=== PATIENT | female | born 1955 | race Caucasian/White ===

== ENCOUNTER 2019-04-09 19:18 | Observation (INO) | payer MEDICARE, OTHER, SELFPAY ==
[2019-04-09 19:25] VITALS: BP 142/61; PULSE 74; RESP 20; TEMP 37; O2SAT 94
--- NOTE | 2019-04-09 19:47 | ED.GENADUL_ITS ---
Discharge Plan Disposition Patient Disposition: [facility] INPATIENT Condition: Improving Discharge Details Chief Complaint: Orthopedic Clinical Impression: Acute renal insufficiency, Acute pain of right foot Admit Date/Time: 04/09/19 22:37 Admit Provider: Aydin Guardado Attending Provider: Aydin Guardado Primary Care Provider: Tatum Marie ED Provider: Jaycob Ledesma Discharge Data Discharge Date/Time-TO BE ENTERED AT DEPARTURE: 04/09/19 23:36 Medical Decision Making 63-year-old female who was discharged from [facility] orthopedics at the end of February following left knee revision arthroplasty and quadriceps tendon repair with semitendinosus allograft.. She is nonweightbearing on that leg and has been using a walker. Now she reports the insidious onset of 2 days of right hip and right foot pain that is worse with movement. States she has had occult fractures in the past, presumptively do to chronic steroid use. She is insulin dependent diabetic who is chronically immunosuppressed for rheumatoid arthritis. She is been unable to bear weight for the past 2 days due to ongoing right lower extremity pain that she states is primarily in the foot. No fall or injury. She has not had a fever or other illness. Due to her chronic arthritic pain she has been taking hydromorphone 8 mg 3 times a day. IV placed and screening laboratories obtained, patient given analgesia and referred for x-ray. She has moderate to severe osteopenia of the right foot, limiting evaluation for a nondisplaced fracture, no displaced fracture seen. X- ray of the hip and pelvis without evidence of fracture, mild degenerative changes present. Would note reassuring CBC, chemistries with mildly elevated BUN, creatinine, potassium (patient takes lisinopril and potassium). CRP is elevated but she is in the postoperative period. There is no evidence of joint infection in my opinion. She may have an occult fracture of the right foot from increased weightbearing due to her postoperative convalescence. I do feel she must be admitted for pain control, hydration, repeat of electrolytes, and reevaluation of her pain in the morning, PT versus orthopedic consult/evaluation. Lab Data Lab results reviewed: Yes I reviewed the patient's lab results. Laboratory Results - last 24 hr 04/09/19 04/09/19 04/09/19 19:57 19:57 19:57 WBC 9.38 RBC 4.08 Hgb 11.6 L Hct 37.1 MCV 90.9 MCH 28.4 MCHC 31.3 L RDW 14.9 H Plt Count 444 H MPV 9.6 Immature Gran % 0.3 Neutrophils % 70.3 Lymphocytes % 21.0 Monocytes % 6.2 Eosinophils % 1.6 Basophils % 0.6 Absolute Neutrophils 6.59 Absolute Lymphocytes 1.97 Absolute Monocytes 0.58 Absolute Eosinophils 0.15 Absolute Basophils 0.06 Sodium 137 Potassium 5.5 H Chloride 100 Carbon Dioxide 31.1 Anion Gap 5.9 BUN 21 H Creatinine 1.11 H Estimated GFR/1.73 m2 49.81 Glucose 228 H Uric Acid 4.9 Calcium 9.6 Total Bilirubin 1.2 H AST 186 H ALT 244 H Alkaline Phosphatase 368 H C-Reactive Protein 7.51 H Total Protein 7.2 Albumin 3.1 L HPI General Mode of arrival: EMS . Date/Time Provider Initiated Documentation: 04/09/19 19:40 . Limitations to Documentation: no limitations . Information obtained by: patient, family and EMS . History of Present Illness 63 year old F presents to the emergency department with the chief complaint of Occult onset right hip and foot pain, described as moderate, Quality is described as dull and constant, and is localized to the right and lower extremity. Patient reports no radiation. Patient started experiencing this day(s) and it has been constant. Rest improves symptom(s), Movement worsens symptoms . Patient notes no other symptoms.; denies fever/chills, rash and weakness. Patient did receive the following treatments prior to arrival, other (hydromorphone 8mg) Related Data Home Medications Medication Instructions Recorded Confirmed Lantus U-100 Insulin 42 units SUB-Q DIRECTED 01/11/14 04/09/19 albuterol sulfate 1 unit INHALATION QID PRN 01/11/14 04/09/19 amlodipine 5 mg PO BID 01/11/14 04/09/19 atorvastatin [Lipitor] 10 mg PO DAILY 01/11/14 04/09/19 betamethasone, augmented 1 applic TOPICAL DAILY PRN 01/11/14 04/09/19 [Diprolene] calcium carbonate-vitamin D3 1 tab PO BID 01/11/14 04/09/19 [Calcium 600 + D(3)] esomeprazole magnesium [Nexium] 40 mg PO DAILY 01/11/14 04/09/19 fluconazole 150 mg PO .X1 PRN 01/11/14 02/10/14 folic acid 1 mg PO DAILY 01/11/14 04/09/19 furosemide 40 mg PO DAILY PRN 01/11/14 04/09/19 leflunomide [Arava] 20 mg PO DAILY 01/11/14 04/09/19 methylprednisolone 4 mg PO DAILY 01/11/14 04/09/19 montelukast 10 mg PO DAILY 01/11/14 04/09/19 potassium chloride 10 meq PO DAILY PRN 01/11/14 04/09/19 zolpidem 10 mg PO HS 01/11/14 04/09/19 Breo Ellipta 2 ea INHALATION QHS 04/09/19 04/09/19 Humira 10 mg SUBCUT 04/09/19 Januvia 50 mg PO DAILY 04/09/19 04/09/19 Multi Vitamin 1 mg PO DAILY 04/09/19 04/09/19 albuterol sulfate 2 mg INHALATION PRN PRN 04/09/19 04/09/19 aspirin 81 mg PO DAILY 04/09/19 04/09/19 hydrochlorothiazide 25 mg PO DIRECTED 04/09/19 04/09/19 hydromorphone 8 mg PO Q6H PRN PRN 04/09/19 04/09/19 insulin lispro [Humalog KwikPen 10 unit SUBCUT 1200 04/09/19 04/09/19 Insulin] lisinopril 10 mg PO DAILY 04/09/19 04/09/19 metoprolol succinate 50 mg PO DAILY 04/09/19 04/09/19 tizanidine 2 mg PO Q8H PRN PRN 04/09/19 04/09/19 diazepam [Valium] 2 mg PO BID PRN #20 tab 04/11/19 naloxone [Narcan] 1 spray RICCI ONCE PRN #2 each 04/11/19 prednisone 20 mg PO DAILY #13 tab 04/11/19 Previous Rx's Medication Instructions Recorded diazepam [Valium] 2 mg PO BID PRN #20 tab 04/11/19 naloxone [Narcan] 1 spray RICCI ONCE PRN #2 each 04/11/19 prednisone 20 mg PO DAILY #13 tab 04/11/19 Allergies Allergy/AdvReac Type Severity Reaction Status Date / Time clarithromycin [From Biaxin] Allergy Intermediate Skin Rash Unverified 02/10/14 07:08 Penicillins Allergy Intermediate Skin Rash Unverified 02/10/14 07:08 Sulfa (Sulfonamide Allergy Intermediate Skin Rash Unverified 02/10/14 07:08 Antibiotics) capsaicin Allergy Anaphylaxsi Unverified 04/09/19 19:29 s nickel Allergy Unverified 04/10/19 15:07 General Stated Complaint: Orthopedic ARABELLA: 3 Review of Systems Review of Systems 6 systems reviewed and otherwise neg [facility] Medical History Diabetes mellitus (Chronic) Pain (Acute) Rheumatoid arthritis (Chronic) Surgical History Status post total left knee replacement (Acute) Social History Smoking/Tobacco Use Status: Never Drug use: Never Do you feel safe at home: Yes Do you feel safe in your relationship?: Yes Exam Narrative Exam Narrative: GEN: awake, alert, oriented 3. Pleasant, well groomed, interactive. HEAD: Normocephalic, atraumatic ENT: Mucous membranes moist, oropharynx unremarkable, External ear exam unremarkable EYES: PERRL, EOMI NECK: Full ROM, no HOMAR, no menigismus CHEST/RESP: Nontender, clear to auscultation bilateral, no wheeze/rhonchi/rales CARDIOVASCULAR: RRR, no murmur, rub pooja. 2+ Rad pulse bilateral ABDOMEN: Soft, nontender, no mass. +Bowel sounds. Back: Mild R paraspinous muscular spasm in lumbar region EXT: The left leg is with a locked knee brace with anterior vertical incision with mild surrounding ecchymosis. Palpable DP left. Sensation intact throughout. Right leg with pain with palpation of the right greater trochanter as well as with internal and external rotation of the hip, pain with palpation of the foot. Patient is able to hold the leg up against gravity. She has palpable dorsalis pedis pulse right. Neuro: Grossly normal neurologic exam, conversant, interactive. Psych: Speech fluent, thoughts congruent, affect normal Course Vital Signs Temperature 37 C 04/09/19 19:25 Pulse 74 04/09/19 19:25 Respiratory Rate 20 04/09/19 19:25 Blood Pressure 142/61 H 04/09/19 19:25 Pulse Oximetry 94 L 04/09/19 19:25 Temperature 37 C 04/09/19 19:25 Temperature Source Temporal Artery Scan 04/09/19 19:25 Pulse 74 04/09/19 19:25 Respiratory Rate 20 04/09/19 19:25 Blood Pressure 142/61 H 04/09/19 19:25 Blood Pressure Position Supine 04/09/19 19:25 Pulse Oximetry 94 L 04/09/19 19:25 Oxygen Delivery Method Room Air 04/09/19 19:25 Oxygen Flow Rate 0 04/09/19 19:25 Pain Level 10 04/09/19 19:31
[2019-04-09] MEDS: HYDROmorphone 2 MG/ML VIAL IVP ×2 (20:20→20:40)
[2019-04-09 20:22] LABS: Abs Immature Grans 0.03 k/cumm (0.0-0.09); Absolute Basophil Count 0.06 k/cumm (0.0-0.2); Absolute Eosinophil Count 0.15 k/cumm (0.0-0.7); Absolute Lymphocyte Count 1.97 k/cumm (1.2-3.4); Absolute Monocyte Count 0.58 k/cumm (0.11-0.7); Absolute Neutrophil Count 6.59 k/cumm (1.2-6.7); Basophils % 0.6; Eosinophils % 1.6; HCT 37.1 % (36.0-46.0); HGB 11.6 g/dL (12.0-15.5); Immature Grans % 0.3; Mean Corp. HGB Concentration 31.3 g/dL (32.0-36.0); Mean Corpuscular Hemoglobin 28.4 pg (27.0-33.0); Mean Corpuscular Volume 90.9 fL (80-95); Mean Platelet Volume 9.6 fL (8.0-11.0); Monocytes % 6.2; Neutrophils % 70.3; Platelet Count 444 x1000/uL (130-400); RBC 4.08 m/cumm (4.00-5.20); RBC Distribution Width 14.9 % (11.7-14.6); White Blood Cell Count 9.38 k/cumm (4.4-10.8)
[2019-04-09 20:26] LABS: C-Reactive Protein 7.51 mg/dL (0.0-0.3); Uric Acid 4.9 mg/dL (2.6-6.0)
[2019-04-09 20:40] LABS: ALT 244 U/L (12-78); AST 186 U/L (15-37); Albumin 3.1 g/dL (3.4-5.0); Alkaline Phosphatase 368 U/L (46-116); Anion Gap 5.9 mmol/L (3-11); BUN 21 mg/dL (7-18); Bilirubin, Total 1.2 mg/dL (0.2-1.0); CO2 31.1 mmol/L (21.0-32.0); CREATININE 1.11 mg/dL (0.55-1.02); Calcium 9.6 mg/dL (8.5-10.1); Chloride 100 mmol/L (98-107); Estimated GFR 49.81 (mL/min/1.73m2); Glucose 228 mg/dL (70-100); Potassium 5.5 mmol/L (3.5-5.1); Sodium 137 mmol/L (136-145); Total Protein 7.2 g/dL (6.4-8.2)
--- NOTE | 2019-04-09 21:01 | DI.RAD_ITS ---
SYMPTOM/DIAGNOSIS: PAIN, H/O OCCULT FRACTURES OF FOOT, RT HIP PAIN RIGHT HIP AND PELVIS: Three views were obtained. There are mild degenerative changes of both hips. There is no evidence of acute fracture or dislocation. RIGHT FOOT: Three views were obtained. There is marked demineralization of the bones of the foot. There is mild hallux valgus deformity. No gross acute fracture identified but the degree of demineralization might make it difficult to appreciate a fracture. Fixation apparatus noted in the fused tibia and talus.
--- NOTE | 2019-04-09 21:19 | DI.VRAD_ITS ---
EXAM: XR Right Foot Complete EXAM DATE/TIME: 04/09/2019 7:47 PM CLINICAL HISTORY: 63 years old, female; Pain; Foot; Right; Patient HX: HX occult fractures TECHNIQUE: Imaging protocol: XR Right foot. Views: 3 or more views. COMPARISON: No relevant prior studies available. FINDINGS: Bones/joints: There is moderate to severe diffuse osteopenia, correlate for disuse. This limits evaluation for nondisplaced fracture. Postsurgical changes of internal fixation of the distal right tibia and fibula. No displaced fracture. There is hallux valgus deformity with mild degenerative change of the right first MTP joint. There is severe degenerative spurring of the anterior tibiotalar joint space. There is posttraumatic changes of the ankle. Soft tissues: There is soft tissue bunion. There is mild diffuse prominence of the subcutaneous soft tissues, correlate clinically with physical exam for body habitus versus nonfocal edema. IMPRESSION: 1. Moderate to severe osteopenia limits evaluation for nondisplaced fracture, no displaced fracture. Correlate for disuse. 2. Hallux valgus deformity with soft tissue bunion and mild degenerative change of the right first MTP joint. Dictated and Authenticated by: Gama Solares MD. Ordering:IBRAHIMA Devries MD
--- NOTE | 2019-04-09 21:21 | DI.VRAD_ITS ---
EXAM: XR Right Hip with Pelvis when Performed EXAM DATE/TIME: 04/09/2019 7:47 PM CLINICAL HISTORY: 63 years old, female; Hip pain; Right hip TECHNIQUE: Imaging protocol: XR Right hip with pelvis when performed. Views: 2 or 3 views. COMPARISON: No relevant prior studies available. FINDINGS: Bones/joints: Mild decrease in osseous mineralization consistent osteopenia. No acute fracture or dislocation. There are mild degenerative changes of the right hip. Soft tissues: Mild to moderate stool burden within the imaged colon with multiple well-formed stool balls, correlate for constipation. Otherwise no focal abnormality. Vasculature: Note is made of mild vascular calcifications of the femoral arteries. IMPRESSION: No acute fracture or dislocation. Mild degenerative change of the right hip. Dictated and Authenticated by: Gama Solares MD. Ordering:IBRAHIMA Devries MD
[2019-04-09 21:32] LABS: Bilirubin Negative (Negative); Blood Negative (Negative); Clarity Clear (Clear); Glucose Negative (Negative); Ketones Negative (Negative); Leukocyte Esterase Negative (Negative); Nitrite Negative (Negative); Specific Gravity 1.015 (1.005-1.025)
[2019-04-09 22:00] VITALS: BP 145/63; PULSE 72; RESP 20; O2SAT 92
[2019-04-09] MEDS: Normal Saline 1,000 ML 150 ML IV (22:00)
[2019-04-09] MEDS: Ketorolac 15 MG/ML VIAL IVP (22:02)
[2019-04-09] MEDS: HYDROmorphone 2 MG/ML VIAL 1 MG IVP (22:05)
--- NOTE | 2019-04-09 22:25 | W.PM.HP.N ---
Date of service: 04/09/19 Time of Service: 22:25 Assessment and Plan (1) Lower extremity pain: Current visit: Yes Status: Acute Unclear if this is a foot lesion (?occult fracture), bursitis, sciatica or something elsee. or some combination thereof. Regardless patient is clearly unable to manage at home. Will consult PT, perhaps Orthopedics too, will give prn analgesics. Would consider empiric dose of pulse steroids but at this point I would prefer some degree of greater diagnostic clarity. History of Present Illness Chief Complaint: foot pain Narrative: 63 female with h/o chronic pain, RA. She is 2 weeks s/p revision of left knee arthroplasty, non-weight bearing on the leg, who now reports 2 days of pain on right: primarily in the foot, but vaguely also in the back or perhaps the hip. No sensory changes, no weakness. In consequence now unable to ambulate. In ER films of hip, pelvis and foot negative. Admitted for further management. In ER received Toradol and then IV dilaudid for pain control. Review of Systems Review of Systems All systems reviewed & are unremarkable except as noted in HPI and below PFSH Social History Smoking/Tobacco Use Status: Never Drug use: Never Do you feel safe at home: Yes Do you feel safe in your relationship?: Yes Meds Home Medications Medication Instructions Recorded Confirmed Type albuterol sulfate 1 unit INHALATION QID PRN 01/11/14 04/09/19 History amlodipine 5 mg PO BID 01/11/14 04/09/19 History atorvastatin [Lipitor] 10 mg PO DAILY 01/11/14 04/09/19 History betamethasone, augmented 1 applic TOPICAL DAILY PRN 01/11/14 04/09/19 History [Diprolene 0.05% Ointment] calcium carbonate-vitamin D3 1 tab PO BID 01/11/14 04/09/19 History [Calcium 600 + Vit D 400 Caplet] esomeprazole magnesium [Nexium] 40 mg PO DAILY 01/11/14 04/09/19 History fluconazole 150 mg PO .X1 PRN 01/11/14 02/10/14 History folic acid 1 mg PO DAILY 01/11/14 04/09/19 History furosemide 40 mg PO DAILY PRN 01/11/14 04/09/19 History insulin glargine [Lantus] 42 units SUB-Q DIRECTED 01/11/14 04/09/19 History leflunomide [Arava] 20 mg PO DAILY 01/11/14 04/09/19 History methylprednisolone 4 mg PO DAILY 01/11/14 04/09/19 History montelukast 10 mg PO DAILY 01/11/14 04/09/19 History potassium chloride 10 meq PO DAILY PRN 01/11/14 04/09/19 History zolpidem 10 mg PO HS 01/11/14 04/09/19 History adalimumab [Humira] 10 mg SUBCUT 04/09/19 History aspirin 81 mg PO DAILY 04/09/19 04/09/19 History fluticasone furoate-vilanterol 2 ea INHALATION QHS 04/09/19 04/09/19 History [Breo Ellipta] hydrochlorothiazide 25 mg PO DIRECTED 04/09/19 04/09/19 History hydromorphone 8 mg PO Q6H PRN PRN 04/09/19 04/09/19 History insulin lispro [Humalog KwikPen 10 unit SUBCUT 1200 04/09/19 04/09/19 History Insulin] lisinopril 10 mg PO DAILY 04/09/19 04/09/19 History metoprolol succinate 50 mg PO DAILY 04/09/19 04/09/19 History nqjwozkm-fkm-brlcwar fumarate 1 mg PO DAILY 04/09/19 04/09/19 History [Multi Vitamin] sitagliptin [Januvia] 50 mg PO DAILY 04/09/19 04/09/19 History tizanidine 2 mg PO Q8H PRN PRN 04/09/19 04/09/19 History Allergies Allergy/AdvReac Type Severity Reaction Status Date / Time clarithromycin [From Biaxin] Allergy Intermediate Skin Rash Unverified 02/10/14 07:08 Penicillins Allergy Intermediate Skin Rash Unverified 02/10/14 07:08 Sulfa (Sulfonamide Allergy Intermediate Skin Rash Unverified 02/10/14 07:08 Antibiotics) capsaicin Allergy Anaphylaxsi Unverified 04/09/19 19:29 s Exam Narrative Exam Narrative: 145/63, 72, 20, 37.0. HEENT atraumatic; neck supple; lungs clear; heart RRR 2/6 sys murmur; abdomen soft NT; back no spinal tenderness; mild-mod tenderness overlying right troachanteric bursa, no foot tenderness, straight leg raising produces hip pain at 70 degrees Results Labs : 04/09/19 19:57 04/09/19 19:57 Laboratory Results - last 24 hr 04/09/19 04/09/19 04/09/19 19:57 19:57 19:57 WBC 9.38 RBC 4.08 Hgb 11.6 L Hct 37.1 MCV 90.9 MCH 28.4 MCHC 31.3 L RDW 14.9 H Plt Count 444 H MPV 9.6 Immature Gran % 0.3 Neutrophils % 70.3 Lymphocytes % 21.0 Monocytes % 6.2 Eosinophils % 1.6 Basophils % 0.6 Absolute Neutrophils 6.59 Absolute Lymphocytes 1.97 Absolute Monocytes 0.58 Absolute Eosinophils 0.15 Absolute Basophils 0.06 Sodium 137 Potassium 5.5 H Chloride 100 Carbon Dioxide 31.1 Anion Gap 5.9 BUN 21 H Creatinine 1.11 H Estimated GFR/1.73 m2 49.81 Glucose 228 H Uric Acid 4.9 Calcium 9.6 Total Bilirubin 1.2 H AST 186 H ALT 244 H Alkaline Phosphatase 368 H C-Reactive Protein 7.51 H Total Protein 7.2 Albumin 3.1 L Urine Color Urine Clarity Urine pH Ur Specific [place] Urine Protein Urine Ketones Urine Blood Urine Nitrite Urine Bilirubin Urine Urobilinogen Ur Leukocyte Esterase Urine Glucose 04/09/19 21:15 WBC RBC Hgb Hct MCV MCH MCHC RDW Plt Count MPV Immature Gran % Neutrophils % Lymphocytes % Monocytes % Eosinophils % Basophils % Absolute Neutrophils Absolute Lymphocytes Absolute Monocytes Absolute Eosinophils Absolute Basophils Sodium Potassium Chloride Carbon Dioxide Anion Gap BUN Creatinine Estimated GFR/1.73 m2 Glucose Uric Acid Calcium Total Bilirubin AST ALT Alkaline Phosphatase C-Reactive Protein Total Protein Albumin Urine Color Yellow Urine Clarity Clear Urine pH 6.0 Ur Specific [place] 1.015 Urine Protein Negative Urine Ketones Negative Urine Blood Negative Urine Nitrite Negative Urine Bilirubin Negative Urine Urobilinogen 1.0 H Ur Leukocyte Esterase Negative Urine Glucose Negative Last Vital Signs Temp 37 C 04/09/19 19:25 Pulse 72 04/09/19 22:00 Resp 20 04/09/19 22:00 BP 145/63 H 04/09/19 22:00 Pulse Ox 92 L 04/09/19 22:00
[2019-04-09 23:54] VITALS: BP 155/71; PULSE 76; RESP 20; TEMP 36.7; O2SAT 96
[2019-04-09 23:58] VITALS: BP 145/63; PULSE 72; RESP 20; TEMP 36.7; O2SAT 92
[2019-04-10] MEDS: HYDROmorphone 4 MG TAB 8 MG PO ×5 (00:37→19:31)
[2019-04-10] MEDS: Normal Saline 1,000 ML 150 ML IV ×3 (04:22→22:44)
[2019-04-10 04:53] VITALS: BP 145/79; PULSE 76; RESP 20; TEMP 36.4; O2SAT 94
[2019-04-10 07:22] VITALS: BP 157/74; PULSE 73; RESP 19; TEMP 36.1; O2SAT 96
[2019-04-10] MEDS: Insulin Aspart 300 UNITS/3 ML PEN SC ×3 (08:20→17:06)
[2019-04-10] MEDS: Insulin Glargine 300 UNITS/3 ML PEN 42 UNITS SC (08:20)
[2019-04-10] MEDS: Multivitamin w/Minerals TAB 1 TAB PO (08:21)
[2019-04-10] MEDS: methylPREDNISolone 4 MG TAB PO (08:21)
[2019-04-10] MEDS: Esomeprazole 40 MG CAPCR PO (08:21)
[2019-04-10] MEDS: Lisinopril 10 MG TAB PO (08:22)
[2019-04-10] MEDS: amLODIPine 5 MG TAB PO ×2 (08:22→19:32)
[2019-04-10] MEDS: Calcium 600mg/Vit D 200U TAB 1 TAB PO ×2 (08:22→19:32)
[2019-04-10] MEDS: Aspirin 81 MG CHEW PO (08:22)
[2019-04-10] MEDS: Metoprolol CR 50 MG TABCR PO (08:22)
[2019-04-10] MEDS: Folic Acid 1 MG TAB PO (08:22)
[2019-04-10] MEDS: Montelukast 10 MG TAB PO (08:22)
[2019-04-10] MEDS: Atorvastatin 10 MG TAB PO (08:22)
[2019-04-10 08:31] LABS: BUN 18 mg/dL (7-18); CREATININE 0.89 mg/dL (0.55-1.02); Calcium 8.7 mg/dL (8.5-10.1); Chloride 103 mmol/L (98-107); Glucose 138 mg/dL (70-100); Potassium 4.2 mmol/L (3.5-5.1); Sodium 140 mmol/L (136-145)
--- NOTE | 2019-04-10 09:52 | IN_ITS ---
Date of service: 04/10/19 Time of Service: 09:00 PT Notes Inpatient Physical Therapy Evaluation Date: 04/10/19 Referring Doctor: Dr. Guardado PT Orders: PT CONSULT: unable to ambulate Precautions: NWB LLE, no quad activation LLE, ? WBing status right foot Patient Profile/Admitting Diagnosis: Patient admitted via ER due to acute onset, severe foot pain. Patient first noticed her pain in bed two nights ago. She states that she had severe pain throughout her foot, and was unable to transfer the next day. She has been NWB on the LLE for the past 2 weeks, after a TKA revision and quad tendon repair. She's in a locking brace at 0 degrees at all times. Since onset of foot pain, she's also developed centralized LBP. PMHX: RA with chronic steroid use and h/o multiple foot fractures. She's s/p ORIF of the right ankle. She is a type II diabetic. Social History/Home Situation: Patient lives independently with her . She has been transferring bed<->wheelchair independently withWW, hinged locking brace and use of leg helper for the past two weeks. She admits that her mobility was significantly impaired leading up to surgery, and her walking has been very limited. Her is supportive. Current Functional Limitations: Unable to transfer Equipment Owned/DME: W/C; 4WW; leg helper; hinged, locking brace; commode Subjective: Michelle states that she's in a lot of pain this morning. Her back is bothering her quite a lot, but her foot seems to be feeling better. She's not been out of bed since getting stranded on the commode yesterday afternoon. Objective: General Observation: Resting in bed with hinged, locking brace appropriately applied to LLE. She has resolving bruising noted throughout the left knee. Small area of non-pitting edema over the 2-3rd rays of the right foot. She's exquisitely tender to palpation over the 3rd ray. Mental Status: A&Ox3 Pain: Pain with palpation only. No foot pain at rest. ROM: Right Upper Extremity: WFL Left Upper Extremity: WFL Right Lower Extremity: Hip flexion allows 100 degrees passively. Knee motion allows 0-100 degrees. Ankle PF allows 40 degrees, DF to 5 degrees. Inversion/eversion allows approx 30 degree arc of motion. She demonstrates SLR to 40 degrees, with exacerbation of back pain although no symptoms of foot pain. No alleviation with traction. Left Lower Extremity: not assessed due to post-operative status Strength: Right Upper Extremity: WFL Left Upper Extremity: WFL Right Lower Extremity: Quads 3+/5. Ankle DF 4/5. EHL 3+/5. Left Lower Extremity: Not assessed proximally. Ankle DF is 4/5. EHL is 4-/5. Sensation: intact distally Bed Mobility/Transfers: supine->sit: min A to LLE with HOB at 45 degrees sit->supine: max A to bilat LEs with HOB flat scoot in bed: max A x 2 rolling: mod A x 2 Deferred on WBing activities due to potential for fracture. Gait: unable Balance: Static Sitting: good Dynamic Sitting: good Static Standing: unable Dynamic Standing: unable Special Tests: Mobility Limitations Standardized Measure [facility] AM-PAC 6 clicks Basic Mobility Inpatient Short Form: Raw Score: 9 CMS Score: 81% deficit Informed Consent/Education: Patient instructed in purpose of PT consult and plan of care. She was instructed in bed exercises for the RLE as noted on flowsheet. Assessment: Patient is a 63 year old female referred to physical therapy services with the diagnosis of right foot pain. Patient presents with clinical signs and symptoms consistent with diagnosis, in the presence of recent L knee surgery, requiring her to be NWB on the LLE for several weeks. She is additionally osteoporotic due to chronic steroid treatment for RA, and has a h/o of multiple atraumatic foot fractures. Her presentation and history are certainly concerning for fracture, and I've deferred on any WBing activity until further work up is obtained. Patient does already own walking boots, and her was able to bring one in for use once her WB status is obtained. At end of session, patient was heading down for CT scan; will await results and further recommendation regarding transfer. She currently demonstrates the following impairment level findings: 1. Decreased bilat LE strength 2. Decreased ROM right foot and ankle 3. Edema of the right foot 4. poorly controlled pain Impairments are contributing to the following functional limitations: 1. Unable to independently transfer 2. Unable to independently perform bed mobility 3. Unable to ambulate Patient is assessed as a High 15286 complexity based on the following: History: 63 year old female presenting with right foot pain with possibility of fracture. Patient has complicated medical history, with h/o RA and chronic st eroid use, now with osteoporosis and h/o multiple foot fractures and ORIF for stabilization. She is additionally NWB on the LLE as she recovers from TKA revision and quad tendon repair. Examination: functional limitations as noted above Presentation: unstable Decision Making: high complexity Goals: Goals X1 week 1. Supine-Sit : independent with hinged brace and leg assist 2. Sit-Supine : independent with hinged brace and leg assist 3. Sit-Stand : TBD based on CT and WB recommendations 4. Stand-Sit : TBD based on CT and WB recommendations 5. Bed-Chair : TBD based on CT and WB recommendations 6. Chair-Bed : TBD based on CT and WB recommendations Plan of Care/Treatment Plan: 1-2x/day, 7 days/week x 1 week. Plan of care has been reviewed with the TRANSPORTATION ENGINEERING TECHNICIAN providing the service under Physical Therapy direction. Initiate Physical Therapy intervention for strengthening, bed mobility, transfers, gait, stairs, balance training, use of assistive device. Will await CT results and WB recommendation prior to assessing transfers. DISCHARGE RECOMMENDATIONS: home vs SNF TREATMENT CODE/TIME: 25 minutes (74774) Jocelyn Raymond, PT, DPT [facility]
[2019-04-10] MEDS: Docusate Sodium 100 MG CAP PO ×3 (10:10→19:32)
--- NOTE | 2019-04-10 10:13 | PHARADMIT ---
Admission Pharmacy Clinical Review LOWER EXTREMITY PAIN Code Status Full Code Current Weight 98.6 kg Renally Cleared and Narrow Therapeutic Index Meds CrCl~59ml/min QTc Value / Action Taken QTC 419 (04/22/2011) BP Control, Fever BP 157/74, Afebrile, Pain 8/10 Electrolytes reviewed K+ 4.2 Mag pending DVT Prophylaxis Lovenox Opiate Usage / Scheduled Bowel Regimen Ordered Dilaudid 8mg po Q4h prn-chronic pain/opiate use Yes bowel meds started Plt/SCr for Heparin / Enoxaparin Plt 444 on admission, SCr 0.89 INR for Warfarin H/H stable, WBC/Bands H/H 11.6/37.1 WBC 9.38 on admission Antibiotic appropriateness n/a Cultures and Sensitivities n/a Surgical ABX d/c within 24 hr DM control / Insulin Dosing BG 138 (Januvia, Novolog and Lantus) Heart Failure (Check EF%) (DUC's, B-Block, Diuretics) Amlodipine, Lisinopril, Toprol IV to PO Switch Home Meds Reviewed Pt's own Arava-was brought in and given Pt's own Breo Elipta---dose and directions need clarification, med not brought in, MD aware, may substitute formulary item (?One puff daily usual dose, ?strength) Home Meds Not Ordered Furosemide, HCTZ, Potassium, Comments recent knee revision surgery on L side February 2019, non-weight bearing This pain is Right sided foot and hip--? bursitis from compensation PT eval-unable to ambulate ?Ortho consult-[facility] did recent surgery
[2019-04-10 10:39] LABS: Magnesium 1.5 mg/dL (1.8-2.4)
--- NOTE | 2019-04-10 10:50 | DI.CT_ITS ---
SYMPTOM/DIAGNOSIS: UNABLE TO BEAR WT, PAIN, ? FX RIGHT ANKLE CT: CT examination of the ankle was performed utilizing multi slice acquisition and multi planar reconstruction. There is a tibiotalar fusion with fixation plate and screws in place. The fusion appears intact. No gross evidence of acute fracture. There is severe diffuse bony demineralization which could obscure a nondisplaced fracture. CONCLUSION: No evidence of acute process. Tibiotalar fusion appears intact. Prior resection of distal fibula. Severe bony demineralization.
--- NOTE | 2019-04-10 11:22 | DI.VRAD_ITS ---
EXAM: CT Right Lower Extremity Without Contrast, Ankle EXAM DATE/TIME: 04/10/2019 10:10 AM CLINICAL HISTORY: 63 years old, female; Pain; Ankle; Right; Prior surgery; Surgery date: 6+ months; Surgery type: 3/ 4 years ago TECHNIQUE: Imaging protocol: CT of the Right lower extremity without contrast was performed. Exam focused on the ankle. Coronal and sagittal reformatted images were created and reviewed. Radiation optimization: All CT scans at this facility use at least one of these dose optimization techniques: automated exposure control; mA and/or kV adjustment per patient size (includes targeted exams where dose is matched to clinical indication); or iterative reconstruction. COMPARISON: CR XR ANKLE 3 VIEWS RIGHT 11/10/2013 14:09 FINDINGS: Bones/joints: Severe osteopenia. Postsurgical changes of the distal tibia, talus, and fibula. Fusion of the talus tibial joint resection of the distal fibula degenerative changes of the tarsal bones and metatarsals tarsal bones. Talocalcaneal joint effusion. Metallic artifact from surgical hardware degrades image quality. No obvious acute bony injury. Soft tissues: Diffuse soft tissue edema of the ankle and foot. IMPRESSION: Severe osteopenia. Postsurgical changes of the right ankle. Marked degenerative changes of the ankle and foot. Talocalcaneal joint effusion. Dictated and Authenticated by: Kristine Jordan MD. Ordering:NIKHIL Luong MD
[2019-04-10 11:45] LABS: Abs Immature Grans 0.02 k/cumm (0.0-0.09); Absolute Basophil Count 0.08 k/cumm (0.0-0.2); Absolute Eosinophil Count 0.33 k/cumm (0.0-0.7); Absolute Monocyte Count 0.82 k/cumm (0.11-0.7); Absolute Neutrophil Count 5.17 k/cumm (1.2-6.7); Basophils % 0.8; Eosinophils % 3.5; HCT 35.7 % (36.0-46.0); HGB 11.2 g/dL (12.0-15.5); Immature Grans % 0.2; Lymphocytes % 32.6; Mean Corp. HGB Concentration 31.4 g/dL (32.0-36.0); Mean Corpuscular Hemoglobin 28.3 pg (27.0-33.0); Mean Corpuscular Volume 90.2 fL (80-95); Mean Platelet Volume 10.3 fL (8.0-11.0); Monocytes % 8.6; Neutrophils % 54.3; Platelet Count 442 x1000/uL (130-400); RBC 3.96 m/cumm (4.00-5.20); RBC Distribution Width 14.4 % (11.7-14.6); White Blood Cell Count 9.52 k/cumm (4.4-10.8)
[2019-04-10 13:01] LABS: C-Reactive Protein 4.77 mg/dL (0.0-0.3)
--- NOTE | 2019-04-10 13:01 | PGE_ITS ---
Date of Service Date of service: 04/10/19 Time of Service: 13:01 Assessment and Plan (1) Lower extremity pain: Start date: 04/10/19 Start time: 13:21 Current visit: Yes Status: Acute Status post left knee revision arthroplasty and quadriceps tendon repair with semitendinosus allograft at [facility] couple weeks ago. Presents to ED last night with worsening Right hip and foot pain. She is non weight bearing on her left leg for 3-4 weeks up to 6 months. Xrays obtained in the ED r/o fracture on right hip and foot. This am however patient was unable to bear weight on RLE with PT and concern for fx. CT obtained revealed degenerative changes of ankle and foot and talocalcaneal joint effusion. Ortho consulted and at this time they feel it could be a flare up of her RA. Asked for CRP, ESR and uric acid. Uric acid normal, unlikely gout given proximity of pain and no warmth or redness. ESR pending and CRP down from 7.55 yesterday to 4.55. Questionable RA flare up by ortho. Consider waiting for ESR. Added aqua K laverne to back for pain and valium TID 2 mg for back pain and spasms. Zanaflex prn will keep for now until we find how valium works for her. (2) Status post total left knee replacement: Start date: 04/10/19 Start time: 13:38 Current visit: Yes Status: Acute see above (3) Rheumatoid arthritis: Start date: 04/10/19 Start time: 13:31 Current visit: Yes Status: Chronic On prednisone and Arava continue home dosing (4) Pain: Start date: 04/10/19 Start time: 13:34 Current visit: Yes Status: Acute Currently on Medrol 4 mg and Arava for RA, and psorriatic arthritis and OA (5) Diabetes mellitus: Start date: 04/10/19 Start time: 13:40 Current visit: Yes Status: Chronic Carb counting diet with SSI moderate, continue lantus (6) DVT prophylaxis: Start date: 04/10/19 Start time: 13:45 Current visit: Yes Status: Acute enoxaparin Subjective Patient reports: still having pain Interval history since last seen: Some question of fracture to right foot after not being able to bear weight with PT and point tenderness. CT obtained revealing no fracture, however patient does have osteopenia and RA on immunosuppressive therapy with history for multiple fractures not seen by imaging. Dr. Harkins consulted recommended ordering ESR, CRP and uric acid. Does not appear gout and the pain is between 2 and 3 rays of right foot. She recently had left knee surgery by [facility] but non weight bearing to left extremity. Pain has been increasing to RL foot and back. She did c/o worsening back pain today. Aqua laverne was ordered with valium 2 mg TID scheduled for relief. She was started on a bowel regimen with 2 large BM today. She denies n/v/, CP, SOB. Exam Const General: cooperative, healthy appearing, comfortable and no acute distress [facility] Head: normal to inspection Chest Chest: normal inspection of the chest and normal palpation of entire chest wall Resp Effort & Inspection: normal respiratory effort and able to speak in complete sentences Auscultation: clear to auscultation bilaterally Cardio Jugular venous pressure: no JVD Palpation: normal PMI Rate: regular rate Rhythm: regular rhythm Heart Sounds: S1 normal and S2 normal GI Inspection: normal to inspection Palpation: soft Percussion: normal to percussion Auscultation: normal bowel sounds Skin General skin exam: no rashes or lesions noted Other: incision to left knee with ecchymoses Neuro General: alert, awake and oriented x3 Extrem General: normal to inspection Right upper extremity: full ROM Left upper extremity: full ROM Right lower extremity: foot Details: tenderness and edema; ROM limited Left lower extremity: knee (recent replacement); abnormal ROM Other: back pain Objective Objective Clinical Data: Abnormal lab results 04/09/19 04/09/19 04/09/19 Range/Units 19:57 19:57 19:57 RBC (4.00-5.20) m/cumm Hgb 11.6 L (12.0-15.5) g/dL Hct (36.0-46.0) % MCHC 31.3 L (32.0-36.0) g/dL RDW 14.9 H (11.7-14.6) % Plt Count 444 H (130-400) x1000/uL Absolute Monocytes (0.11-0.7) k/cumm Potassium 5.5 H (3.5-5.1) mmol/L BUN 21 H (7-18) mg/dL Creatinine 1.11 H (0.55-1.02) mg/dL Glucose 228 H (70-100) mg/dL Magnesium (1.8-2.4) mg/dL Total Bilirubin 1.2 H (0.2-1.0) mg/dL AST 186 H (15-37) U/L ALT 244 H (12-78) U/L Alkaline Phosphatase 368 H (46-116) U/L C-Reactive Protein 7.51 H (0.0-0.3) mg/dL Albumin 3.1 L (3.4-5.0) g/dL Urine Urobilinogen (Up TO 0.2) EU/dL 04/09/19 04/10/19 04/10/19 Range/Units 21:15 08:12 08:12 RBC 3.96 L (4.00-5.20) m/cumm Hgb 11.2 L (12.0-15.5) g/dL Hct 35.7 L (36.0-46.0) % MCHC 31.4 L (32.0-36.0) g/dL RDW (11.7-14.6) % Plt Count 442 H (130-400) x1000/uL Absolute Monocytes 0.82 H (0.11-0.7) k/cumm Potassium (3.5-5.1) mmol/L BUN (7-18) mg/dL Creatinine (0.55-1.02) mg/dL Glucose 138 H D (70-100) mg/dL Magnesium 1.5 L (1.8-2.4) mg/dL Total Bilirubin (0.2-1.0) mg/dL AST (15-37) U/L ALT (12-78) U/L Alkaline Phosphatase (46-116) U/L C-Reactive Protein (0.0-0.3) mg/dL Albumin (3.4-5.0) g/dL Urine Urobilinogen 1.0 H (Up TO 0.2) EU/dL Vital Signs Temperature 36.1 C L 04/10/19 07:22 Temperature Source Tympanic 04/10/19 07:22 Pulse 73 04/10/19 07:22 Pulse Rhythm Regular 04/09/19 23:54 Respiratory Rate 19 04/10/19 07:22 Respiratory Effort Non-Labored 04/09/19 23:54 Respiratory Depth Normal 04/09/19 23:54 Respiratory Pattern Normal 04/09/19 23:54 Blood Pressure 157/74 H 04/10/19 07:22 Blood Pressure Position Supine 04/09/19 19:25 Pulse Oximetry 96 04/10/19 07:22 Oxygen Delivery Method Room Air 04/10/19 07:22 Oxygen Flow Rate 0 04/10/19 07:22 Pain Level 8 04/10/19 12:50 Intake & Output 04/09/19 04/10/19 04/10/19 23:59 11:59 23:59 Intake Total 1954 Output Total 650 / 650 475 / 475 Balance -650 / -650 1480 / 1480 Weight 98.6 kg Intake: IV 1954 Output: Urine 650 / 650 475 / 475 Other: Urine Color Yellow Light [place] Urine Appearance Clear Sediment Stool Size Moderate Stool Characteristics Formed Hard Laboratory Results WBC 9.52 k/cumm (4.4-10.8) 04/10/19 08:12 RBC 3.96 m/cumm (4.00-5.20) L 04/10/19 08:12 Hgb 11.2 g/dL (12.0-15.5) L 04/10/19 08:12 Hct 35.7 % (36.0-46.0) L 04/10/19 08:12 MCV 90.2 fL (80-95) 04/10/19 08:12 MCH 28.3 pg (27.0-33.0) 04/10/19 08:12 MCHC 31.4 g/dL (32.0-36.0) L 04/10/19 08:12 RDW 14.4 % (11.7-14.6) 04/10/19 08:12 Plt Count 442 x1000/uL (130-400) H 04/10/19 08:12 MPV 10.3 fL (8.0-11.0) 04/10/19 08:12 Immature Gran % 0.2 04/10/19 08:12 54.3 04/10/19 08:12 32.6 04/10/19 08:12 8.6 04/10/19 08:12 3.5 04/10/19 08:12 0.8 04/10/19 08:12 Absolute Neutrophils 5.17 k/cumm (1.2-6.7) 04/10/19 08:12 Absolute Lymphocytes 3.10 k/cumm (1.2-3.4) 04/10/19 08:12 Absolute Monocytes 0.82 k/cumm (0.11-0.7) H 04/10/19 08:12 Absolute Eosinophils 0.33 k/cumm (0.0-0.7) 04/10/19 08:12 Absolute Basophils 0.08 k/cumm (0.0-0.2) 04/10/19 08:12 Sodium Cancelled 04/10/19 10:07 Potassium Cancelled 04/10/19 10:07 Chloride Cancelled 04/10/19 10:07 Carbon Dioxide Cancelled 04/10/19 10:07 Cancelled 04/10/19 10:07 BUN Cancelled 04/10/19 10:07 Cancelled 04/10/19 10:07 Cancelled 04/10/19 10:07 Glucose Cancelled 04/10/19 10:07 4.9 mg/dL (2.6-6.0) 04/09/19 19:57 Calcium Cancelled 04/10/19 10:07 Magnesium Cancelled 04/10/19 10:07 1.2 mg/dL (0.2-1.0) H 04/09/19 19:57 AST 186 U/L (15-37) H 04/09/19 19:57 ALT 244 U/L (12-78) H 04/09/19 19:57 368 U/L (46-116) H 04/09/19 19:57 7.51 mg/dL (0.0-0.3) H 04/09/19 19:57 7.2 g/dL (6.4-8.2) 04/09/19 19:57 3.1 g/dL (3.4-5.0) L 04/09/19 19:57 Yellow (Yellow) 04/09/19 21:15 Clear (Clear) 04/09/19 21:15 6.0 (5-8) 04/09/19 21:15 Ur Specific [place] 1.015 (1.005-1.025) 04/09/19 21:15 Negative mg/dL (Negative) 08/16/19 21:15 Negative mg/dL (Negative) 04/09/19 21:15 Negative (Negative) 04/09/19 21:15 Negative (Negative) 04/09/19 21:15 Negative (Negative) 04/09/19 21:15 1.0 EU/dL (Up TO 0.2) H 04/09/19 21:15 Ur Leukocyte Esterase Negative (Negative) 04/09/19 21:15 Negative mg/dL (Negative) 04/09/19 21:15
[2019-04-10 13:42] VITALS: BP 129/67; PULSE 74; RESP 18; TEMP 37; O2SAT 96
[2019-04-10 13:46] LABS: ESR 46 mm/hr (0-30)
[2019-04-10] MEDS: diazePAM 2 MG TAB PO (14:17)
--- NOTE | 2019-04-10 14:22 | PDOC.CMIN ---
Care Management Initial Assess REASON FOR HOSPITALIZATION:: Lower Extremity Pain PAST MEDICAL HISTORY/PAST SURGICAL HISTORY:: Medical: Diabetes; Rheumatoid Arthritis; DVT prophylaxis. Surgical: Total Left Knee Replacement PREVIOUS FUNCTIONAL STATUS/SOCIAL/FAMILY SUPPORTS:: Michelle lives with her ,Albino, at their home in [place]. She has not been able to ambulate or bear any weight on the left leg following her recent total knee replacement surgery. Uses a wheel chair but it cannot fit in the bathroom or bedroom. She borrowed the chair from a friend but would like to have her own chair ordered. They have two adult children who live out of the area. Neighbors and friends keep in touch and would help if needed. CURRENT FUNCTIONAL STATUS:: Lying in bed and states she is still in a great deal of pain. PT did evaluiate her this morning. Requires assistance for mobilization. ADVANCE DIRECTIVES:: None on file Has patient been provided with information about the portal?: No Did the patient sign up for the portal?: No CODE STATUS:: Full Code CURRENT HOME/COMMUNITY SERVICES/EQUIPMENT:: Owns an electric scooter and has a borrowed wheel chair PRIMARY CARE PHYSICIAN:: Tatum Jhaveri POTENTIAL DISCHARGE NEEDS:: Possibly home care skilled services PATIENT/FAMILY EDUCATION NEEDS:: Self management and discharge instructions ANTICIPATED BARRIERS TO DISCHARGE:: None identified TRANSPORTATION:: will transport PLAN:: Michelle will return home and services needs will be determined prior to discharge.
--- NOTE | 2019-04-10 15:07 | NUR.NOTE ---
Addendum entered by Ely Gregory 04/10/19 15:30: Patient now states that she is loopy and forgot until her reminded her that she has been having heart palpations for years Original Note: Nursing Note: Verbal report from previous shift nurse was that the patient just recently rang her call jiang and stated that she felt as if she was having heart palpations and felt clammy. Previous nurse assessed an apical heart rate and found it to be regular per report. This RN went to assess patient and she stated that she has been having hot clammy spells followed with feeling cold since just before being admitted to the hospital. The patient also stated that she no longer feels as if she is having heart palpitations
[2019-04-10] MEDS: MAGNESIUM SULFATE 4 GM/100 ML BAG IVPB (15:17)
[2019-04-10 15:30] VITALS: BP 118/75; PULSE 72; RESP 19; TEMP 36.5; O2SAT 97
[2019-04-10] MEDS: Zolpidem 10 MG TAB PO (21:59)
[2019-04-10 23:19] VITALS: BP 107/61; PULSE 69; RESP 18; TEMP 36.6; O2SAT 96
[2019-04-11] MEDS: HYDROmorphone 4 MG TAB 8 MG PO ×2 (00:01→04:10)
[2019-04-11 03:10] VITALS: BP 154/76; PULSE 68; RESP 18; TEMP 36.6; O2SAT 98
[2019-04-11] MEDS: Normal Saline 1,000 ML 150 ML IV (05:02)
[2019-04-11 06:58] LABS: Abs Immature Grans 0.02 k/cumm (0.0-0.09); Absolute Basophil Count 0.09 k/cumm (0.0-0.2); Absolute Eosinophil Count 0.39 k/cumm (0.0-0.7); Absolute Lymphocyte Count 3.31 k/cumm (1.2-3.4); Absolute Monocyte Count 0.75 k/cumm (0.11-0.7); Absolute Neutrophil Count 3.96 k/cumm (1.2-6.7); Basophils % 1.1; Eosinophils % 4.6; HCT 36.1 % (36.0-46.0); HGB 11.4 g/dL (12.0-15.5); Immature Grans % 0.2; Lymphocytes % 38.8; Mean Corp. HGB Concentration 31.6 g/dL (32.0-36.0); Mean Corpuscular Hemoglobin 28.1 pg (27.0-33.0); Mean Corpuscular Volume 89.1 fL (80-95); Mean Platelet Volume 9.9 fL (8.0-11.0); Monocytes % 8.8; Neutrophils % 46.5; Platelet Count 428 x1000/uL (130-400); RBC 4.05 m/cumm (4.00-5.20); RBC Distribution Width 14.6 % (11.7-14.6); White Blood Cell Count 8.52 k/cumm (4.4-10.8)
[2019-04-11 07:05] LABS: Anion Gap 7.5 mmol/L (3-11); BUN 12 mg/dL (7-18); CO2 28.5 mmol/L (21.0-32.0); CREATININE 0.78 mg/dL (0.55-1.02); Calcium 7.9 mg/dL (8.5-10.1); Chloride 107 mmol/L (98-107); Glucose 131 mg/dL (70-100); Potassium 3.6 mmol/L (3.5-5.1); Sodium 143 mmol/L (136-145)
[2019-04-11] MEDS: Calcium 600mg/Vit D 200U TAB 1 TAB PO (07:48)
[2019-04-11] MEDS: diazePAM 2 MG TAB PO (07:48)
[2019-04-11] MEDS: Multivitamin w/Minerals TAB 1 TAB PO (07:48)
[2019-04-11] MEDS: methylPREDNISolone 4 MG TAB PO (07:48)
[2019-04-11] MEDS: Montelukast 10 MG TAB PO (07:48)
[2019-04-11] MEDS: Esomeprazole 40 MG CAPCR PO (07:49)
[2019-04-11] MEDS: Metoprolol CR 50 MG TABCR PO (07:49)
[2019-04-11] MEDS: Folic Acid 1 MG TAB PO (07:49)
[2019-04-11] MEDS: Atorvastatin 10 MG TAB PO (07:49)
[2019-04-11] MEDS: Docusate Sodium 100 MG CAP PO (07:49)
[2019-04-11] MEDS: Lisinopril 10 MG TAB PO (07:49)
[2019-04-11] MEDS: Aspirin 81 MG CHEW PO (07:49)
[2019-04-11] MEDS: amLODIPine 5 MG TAB PO (07:49)
[2019-04-11] MEDS: Enoxaparin 40 MG/0.4 ML SYR SC (07:50)
[2019-04-11] MEDS: Insulin Glargine 300 UNITS/3 ML PEN 42 UNITS SC (07:58)
[2019-04-11 08:39] VITALS: BP 138/64; PULSE 71; RESP 18; TEMP 36.6; O2SAT 98
--- NOTE | 2019-04-11 08:39 | W.ORTHOCONSU ---
Date of service: 04/11/19 Time of Service: 08:40 History of Present Illness Chief Complaint: Right hip and right foot pain Narrative: This patient was admitted to [facility] by Dr. Guardado on the evening of 04/09/2019. She had a history of acute pain in her right hip lower back and in her right foot. She is status post 4 knee incisions on the left side and most recently had a revision [address] Garber. She had a previous ankle fusion on the right side approximately 3 to [address] Grijalva she felt something crack in her foot while walking across the floor in April 2018 and was noted to have a fracture in the midfoot. That has apparently recovered. And she states that she normally is able to ambulate issue however with the acuteness of her injury she has had hip pain back pain and right foot pain. Laboratory studies taken in the emergency department showed an elevated sed rate of 46 a C-reactive protein of 7.5. Other studies were essentially unremarkable her glucose is in relatively poor control. She had x-rays taken of the pelvis which were unremarkable. There is no evidence of any osteoarthritis of either hip or any acute finding findings of foot and ankle x-rays show severe osteopenia with pelvic valgus deformity no acute fractures noted she does have what appears to be an ankle fusion that was performed with a medially placed plate. There is diffuse osteopenia but no acute fractures on those films a subsequent CT scan was done yesterday which confirmed the previous findings showing no acute fractures. Consults Consult date: 04/11/19 Assessment and Plan (1) Rheumatoid arthritis: Current visit: Yes Status: Chronic Right foot right hip and back pain in a patient who is had her fourth knee surgery. Patient also has morbid obesity diabetes and multiple other underlying factors. I suspect that her constellation of symptoms possibly represent a flareup of her rheumatoid arthritis from the stress of surgery. Her uric acid was within normal limits. Her sed rate and C-reactive protein are going to be elevated at this stage following recovery of the knee revision surgery. A CAT scan has ruled out any obvious fracture obviously they could be surinder recommend with the hospitalist that she undergo a steroid bolus with a taper. She is got a fracture walking brace on. She is due to follow-up with Dr. Garber at the end of this month for her knee now for to him issues regarding her current hospital e type of stress fracture but I do not see any indication to consider MRI usually in the acute injury setting a CT scan is more sensitive than an MRI for fracture. Even if she did have a stress fracture is on a milieu of severe osteopenia from disuse undoubtably related to the patient's inactivity and her previous ankle fusion [facility] Medical History (Updated 04/10/19 @ 13:20 by Cherise Almendarez NP) Diabetes mellitus (Chronic) Pain (Acute) Rheumatoid arthritis (Chronic) Surgical History (Updated 04/10/19 @ 13:20 by Cherise Almendarez NP) Status post total left knee replacement (Acute) Social History Smoking/Tobacco Use Status: Never Drug use: Never Do you feel safe at home: Yes Do you feel safe in your relationship?: Yes Exam Extrem Other: Left revision knee incision has a benign appearance there is slight warmth. There is no signs of any infection or drainage. She is in a hinged knee immobilizer splint but the wound is visible right lower extremity exam shows mild hallux valgus deformity clinically although it is fairly more prominent prominent on x-ray she has midfoot tenderness of the base of the third metatarsal I cannot elicit any crepitation ankle fusion seems solid there is minimal swelling there is no cellulitis. This morning she had acute lower back spasms and had trouble moving but that has improved after PT has worked with her. Her right hip is not Results Last Vital Signs Temp 97.9 F 04/11/19 03:10 Pulse 68 04/11/19 03:10 Resp 18 04/11/19 03:10 BP 154/76 H 04/11/19 03:10 Pulse Ox 98 04/11/19 03:10 Labs : 04/11/19 06:15 04/11/19 06:15 Laboratory Results - last 24 hr 04/10/19 04/10/19 04/10/19 08:10 08:10 08:12 WBC RBC Hgb Hct MCV MCH MCHC RDW Plt Count MPV Immature Gran % Neutrophils % Lymphocytes % Monocytes % Eosinophils % Basophils % Absolute Neutrophils Absolute Lymphocytes Absolute Monocytes Absolute Eosinophils Absolute Basophils ESR 46 H Sodium 140 Potassium 4.2 D Chloride 103 Carbon Dioxide 30.0 Anion Gap 7.0 BUN 18 Creatinine 0.89 Estimated GFR/1.73 m2 >= 60.00 Glucose 138 H D Calcium 8.7 Magnesium 1.5 L C-Reactive Protein 4.77 H 04/10/19 04/10/19 04/11/19 08:12 10:07 06:15 WBC 9.52 RBC 3.96 L Hgb 11.2 L Hct 35.7 L MCV 90.2 MCH 28.3 MCHC 31.4 L RDW 14.4 Plt Count 442 H MPV 10.3 Immature Gran % 0.2 Neutrophils % 54.3 Lymphocytes % 32.6 Monocytes % 8.6 Eosinophils % 3.5 Basophils % 0.8 Absolute Neutrophils 5.17 Absolute Lymphocytes 3.10 Absolute Monocytes 0.82 H Absolute Eosinophils 0.33 Absolute Basophils 0.08 ESR Sodium Cancelled 143 Potassium Cancelled 3.6 Chloride Cancelled 107 Carbon Dioxide Cancelled 28.5 Anion Gap Cancelled 7.5 BUN Cancelled 12 D Creatinine Cancelled 0.78 Estimated GFR/1.73 m2 Cancelled >= 60.00 Glucose Cancelled 131 H Calcium Cancelled 7.9 L Magnesium Cancelled 2.0 C-Reactive Protein 04/11/19 06:15 WBC 8.52 RBC 4.05 Hgb 11.4 L Hct 36.1 MCV 89.1 MCH 28.1 MCHC 31.6 L RDW 14.6 Plt Count 428 H MPV 9.9 Immature Gran % 0.2 Neutrophils % 46.5 Lymphocytes % 38.8 Monocytes % 8.8 Eosinophils % 4.6 Basophils % 1.1 Absolute Neutrophils 3.96 Absolute Lymphocytes 3.31 Absolute Monocytes 0.75 H Absolute Eosinophils 0.39 Absolute Basophils 0.09 ESR Sodium Potassium Chloride Carbon Dioxide Anion Gap BUN Creatinine Estimated GFR/1.73 m2 Glucose Calcium Magnesium C-Reactive Protein
[2019-04-11 09:06] LABS: ALT 114 U/L (12-78); AST 30 U/L (15-37); Albumin 2.6 g/dL (3.4-5.0); Alkaline Phosphatase 243 U/L (46-116); Bilirubin, Direct 0.21 mg/dL (0.00-0.20); Bilirubin, Total 0.6 mg/dL (0.2-1.0); C-Reactive Protein 2.07 mg/dL (0.0-0.3); Total Protein 6.2 g/dL (6.4-8.2)
[2019-04-11] MEDS: Potassium Chloride 20 MEQ TABCR 40 MEQ PO (09:09)
[2019-04-11] MEDS: predniSONE 20 MG TAB 60 MG PO (09:28)
--- NOTE | 2019-04-11 10:16 | PTTR_ITS ---
Date of service: 04/11/19 Time of Service: 10:16 PT Notes 04/11/19 SUBJECTIVE: Pt noting some pain today but this is mostly in the left knee while in bed. Some discomfort noted in the right foot upon transfers. OBJECTIVE: Agreeable to PT treatment. is present in the room. TRANSFERS Supine to sit: Min A Sit to supine: SBA Sit to stand: CGA Stand to sit: CGA GAIT: NWB L LE with immobilizer locked at 0 degrees. Boot donned on right LE for comfort. Stand pivot transfer performed x 2. CGA THEREX: Right LE only: Ankle pumps, QS, x 10 each. ASSESSMENT: Minimal assist required for stand pivot transfer today. She did require some assist out of bed and she utilized leg through freight engineer on the left to avoid any quad activation. Seems to be less painful today through the back and right foot. PLAN: Continue current POC. Treatment time: 8:00-8:20, 9:15-9:25 [id number] Claudia Alex PTA Clinic location: [facility] [place], [place]
[2019-04-11 11:00] VITALS: BP 147/78; PULSE 78; RESP 19; TEMP 36.8; O2SAT 98
--- NOTE | 2019-04-11 11:45 | W.PM.DS.N ---
Date of service: 04/11/19 Time of Service: 11:45 DS: Diagnosis Discharge Diagnosis (1) Rheumatoid arthritis: Start date: 04/11/19 Start time: 11:46 Status: Chronic Asessment and Plan: Prednisone taper, valium for back pain. Discharge Plan Disposition Patient Disposition: HOME Condition: Improving Discharge Details Chief Complaint: Orthopedic Clinical Impression: Acute renal insufficiency, Acute pain of right foot Reason For Visit: LOWER EXTREMITY PAIN Admit Date/Time: 04/09/19 22:37 Admit Provider: Aydin Guardado Attending Provider: Aydin Guardado Primary Care Provider: Tatum Marie ED Provider: Jaycob Ledesma Hospital Course Hospital Course: Mrs. Mackenzie had back pain and right lower extremity foot pain x four days worsening to the point she came to [facility] ED on 04/09. Status post left knee revision after 2 weeks at [facility] with 20% weight bearing to the extremity leaving her to use her right leg only. Imaging in the ED did not show any fractures of her hip or foot, it did however show constipation. PT consult was placed with a bowel regimen and valium for back pain, with her normal home pain regimen. PT was concerned yesterday when trying to work with her as she was unable to bear weight on her right foot. Patient has a history of RA and OA on immunospressive therapy leading to osteopenia. PT was concerned about possible fracture in the foot. CT obtained showed no fracture. Ortho consulted and they felt maybe this was an RA flare up or gout, CRP ordered, ESR and uric acid. CRP down from 7.55 at 2.07. ESR was elevated at 43, though in an RA patient this maybe normal. Uric acid was in normal range. Ortho felt starting her on medrol dosage with taper would be appropriate, she was started on 60 mg today. She also had large stool today and yesterday. This morning her back pain is relieved and she was able move with PT and she stated it felt good to get up and move around. She would like to be discharged home. She will be discharged home with PT/OT, nursing services, social work associate, medrol dose taper, valium and narcan. She should follow up with her PCP in 1 week and ortho as scheduled. Home Meds and New Rx's Prescriptions: New diazepam [Valium] 2 mg tablet 2 mg PO BID PRN (Reason: back pain) Qty: 20 RF: 0 Narcan 4 mg/actuation spray,non-aerosol 1 spray RICCI ONCE PRN (Reason: opioid overdose) Qty: 2 RF: 0 prednisone 20 mg tablet 20 mg PO DAILY Qty: 13 RF: 0 Continued furosemide 40 MG tablet 40 mg PO DAILY PRNRF: 0 potassium chloride 10 MEQ capsule, extended release 10 meq PO DAILY PRNRF: 0 Lantus U-100 Insulin 100 UNIT/ML solution 42 units Sub-Q DIRECTED RF: 0 albuterol sulfate 3 ML solution for nebulization 1 unit Inhalation QID PRNRF: 0 atorvastatin [Lipitor] 10 MG tablet 10 mg PO DAILY RF: 0 fluconazole 150 MG tablet 150 mg PO .X1 PRNRF: 0 methylprednisolone 4 MG tablet 4 mg PO DAILY RF: 0 amlodipine 5 MG tablet 5 mg PO BID RF: 0 leflunomide [Arava] 20 MG tablet 20 mg PO DAILY RF: 0 esomeprazole magnesium [Nexium] 40 MG capsule,delayed release(DR/EC) 40 mg PO DAILY RF: 0 betamethasone, augmented [Diprolene] 50 GM ointment 1 applic Topical DAILY PRNRF: 0 folic acid 1 MG tablet 1 mg PO DAILY RF: 0 montelukast 10 MG tablet 10 mg PO DAILY RF: 0 zolpidem 10 MG tablet 10 mg PO HS RF: 0 calcium carbonate-vitamin D3 [Calcium 600 + D(3)] 1 EACH tablet 1 tab PO BID RF: 0 metoprolol succinate 50 mg Tablet Extended Release 24 Hr 50 mg PO DAILY RF: 0 aspirin 81 mg Tablet,Chewable 81 mg PO DAILY RF: 0 hydrochlorothiazide 25 mg Tablet 25 mg PO DIRECTED RF: 0 Januvia 50 mg Tablet 50 mg PO DAILY RF: 0 Multi Vitamin 9 mg iron/15 mL Liquid 1 mg PO DAILY RF: 0 hydromorphone 8 mg Tablet 8 mg PO Q6H PRN PRNRF: 0 tizanidine 2 mg Tablet 2 mg PO Q8H PRN PRNRF: 0 lisinopril 10 mg Tablet 10 mg PO DAILY RF: 0 insulin lispro [Humalog KwikPen Insulin] 100 unit/mL Insulin Pen 10 unit SUBCUT 1200 RF: 0 Breo Ellipta 200-25 mcg/dose Blister With Device 2 ea INHALATION QHS RF: 0 Humira 10 mg/0.2 mL Syringe Kit 10 mg SUBCUT RF: 0 albuterol sulfate 0.63 mg/3 mL Solution For Nebulization 2 mg inhalation PRN PRNRF: 0 Discharge Instructions Instructions: Constipation (GEN), Chronic Pain (GEN), Pain Management After Surgery (GEN), Narcotic Pain Management (GEN), Revision Total Joint Arthroplasty (DC), Opioid Pain Management (GEN) Additional Instructions: Take all medications as prescribed. Physical therapy, occupational therapy and Nursing services will come to your house to work with you. Follow up with your PCP in 1 week. Follow up with ortho as scheduled. Seek medical treatment if you have Chest Pain, Shortness of breath, Nausea, vomiting, diarrhea Activity:: Activity as Tolerated Equipment/Supplies:: W/C Diet:: Carb Counting Discharge Orders Discharge Orders: Discharge Order (Routine); Ordered 04/11/19 Ordered By: Aureliano Almendarez Exam Const General: cooperative, healthy appearing, comfortable and no acute distress HENMT Head: normal to inspection Chest Chest: normal inspection of the chest and normal palpation of entire chest wall Resp Effort & Inspection: normal respiratory effort and able to speak in complete sentences Auscultation: clear to auscultation bilaterally Cardio Jugular venous pressure: no JVD Palpation: normal PMI Rate: regular rate Rhythm: regular rhythm Heart Sounds: S1 normal and S2 normal GI Inspection: normal to inspection Palpation: soft Percussion: normal to percussion Auscultation: normal bowel sounds Skin General skin exam: no rashes or lesions noted Neuro General: alert, awake and oriented x3 Extrem General: normal to inspection Right upper extremity: full ROM Left upper extremity: full ROM Right lower extremity: foot Details: tenderness and edema; ROM limited Left lower extremity: knee (recent replacement); abnormal ROM DS: Data Vitals/I&O Vitals and I&O: Vital Signs Temperature 36.6 C 04/11/19 08:39 Temperature Source Tympanic 04/11/19 08:39 Pulse 71 04/11/19 08:39 Pulse Rhythm Regular 04/11/19 00:00 Respiratory Rate 18 04/11/19 08:39 Respiratory Effort Non-Labored 04/11/19 00:00 Respiratory Depth Normal 04/11/19 00:00 Respiratory Pattern Normal 04/11/19 00:00 Blood Pressure 138/64 04/11/19 08:39 Blood Pressure Position Supine 04/09/19 19:25 Pulse Oximetry 98 04/11/19 08:39 Oxygen Delivery Method Room Air 04/11/19 08:39 Oxygen Flow Rate 0 04/11/19 08:39 Pain Level 7 04/11/19 08:39 Comment 04/11/19 03:10 Intake & Output 04/10/19 04/10/19 04/11/19 11:59 23:59 11:59 Intake Total 2055 / 3502.5 1447.5 / 3502.5 1840 / 1840 Output Total 1125 / 3775 2650 / 3775 850 / 850 Balance 930 / -272.5 -1202.5 / -272.5 990 / 990 Intake: IV 1955 / 2912.5 957.5 / 2912.5 1840 / 1840 Oral 100 / 590 490 / 590 Output: Urine 1125 / 3775 2650 / 3775 850 / 850 Other: Urine Color Yellow Yellow Pale Yellow Urine Appearance Clear Clear Clear Comment d/c'd per verbal order from aureliano Almendarez. Stool Size Moderate Stool Characteristics Formed Hard Pending studies at discharge: EXAM: XR Right Foot Complete EXAM DATE/TIME: 04/09/2019 7:47 PM CLINICAL HISTORY: 63 years old, female; Pain; Foot; Right; Patient HX: HX occult fractures TECHNIQUE: Imaging protocol: XR Right foot. Views: 3 or more views. COMPARISON: No relevant prior studies available. FINDINGS: Bones/joints: There is moderate to severe diffuse osteopenia, correlate for disuse. This limits evaluation for nondisplaced fracture. Postsurgical changes of internal fixation of the distal right tibia and fibula. No displaced fracture. There is hallux valgus deformity with mild degenerative change of the right first MTP joint. There is severe degenerative spurring of the anterior tibiotalar joint space. There is posttraumatic changes of the ankle. Soft tissues: There is soft tissue bunion. There is mild diffuse prominence of the subcutaneous soft tissues, correlate clinically with physical exam for body habitus versus nonfocal edema. IMPRESSION: 1. Moderate to severe osteopenia limits evaluation for nondisplaced fracture, no displaced fracture. Correlate for disuse. 2. Hallux valgus deformity with soft tissue bunion and mild degenerative change of the right first MTP joint. 04/09/2019 7:47 PM CLINICAL HISTORY: 63 years old, female; Hip pain; Right hip TECHNIQUE: Imaging protocol: XR Right hip with pelvis when performed. Views: 2 or 3 views. COMPARISON: No relevant prior studies available. FINDINGS: Bones/joints: Mild decrease in osseous mineralization consistent osteopenia. No acute fracture or dislocation. There are mild degenerative changes of the right hip. Soft tissues: Mild to moderate stool burden within the imaged colon with multiple well-formed stool balls, correlate for constipation. Otherwise no focal abnormality. Vasculature: Note is made of mild vascular calcifications of the femoral arteries. IMPRESSION: No acute fracture or dislocation. Mild degenerative change of the right hip. EXAM: CT Right Lower Extremity Without Contrast, Ankle EXAM DATE/TIME: 04/10/2019 10:10 AM CLINICAL HISTORY: 63 years old, female; Pain; Ankle; Right; Prior surgery; Surgery date: 6+ months; Surgery type: 3/ 4 years ago TECHNIQUE: Imaging protocol: CT of the Right lower extremity without contrast was performed. Exam focused on the ankle. Coronal and sagittal reformatted images were created and reviewed. Radiation optimization: All CT scans at this facility use at least one of these dose optimization techniques: automated exposure control; mA and/or kV adjustment per patient size (includes targeted exams where dose is matched to clinical indication); or iterative reconstruction. COMPARISON: CR XR ANKLE 3 VIEWS RIGHT 11/10/2013 14:09 FINDINGS: Bones/joints: Severe osteopenia. Postsurgical changes of the distal tibia, talus, and fibula. Fusion of the talus tibial joint resection of the distal fibula degenerative changes of the tarsal bones and metatarsals tarsal bones. Talocalcaneal joint effusion. Metallic artifact from surgical hardware degrades image quality. No obvious acute bony injury. Soft tissues: Diffuse soft tissue edema of the ankle and foot. IMPRESSION: Severe osteopenia. Postsurgical changes of the right ankle. Marked degenerative changes of the ankle and foot. Talocalcaneal joint effusion. Labs on day of discharge: Labs from last 24 hours 04/11/19 04/11/19 04/10/19 06:15 06:15 08:12 WBC 8.52 9.52 RBC 4.05 3.96 L Hgb 11.4 L 11.2 L Hct 36.1 35.7 L MCV 89.1 90.2 MCH 28.1 28.3 MCHC 31.6 L 31.4 L RDW 14.6 14.4 Plt Count 428 H 442 H MPV 9.9 10.3 Immature Gran % 0.2 0.2 Neutrophils % 46.5 54.3 Lymphocytes % 38.8 32.6 Monocytes % 8.8 8.6 Eosinophils % 4.6 3.5 Basophils % 1.1 0.8 Absolute Neutrophils 3.96 5.17 Absolute Lymphocytes 3.31 3.10 Absolute Monocytes 0.75 H 0.82 H Absolute Eosinophils 0.39 0.33 Absolute Basophils 0.09 0.08 ESR Sodium 143 Potassium 3.6 Chloride 107 Carbon Dioxide 28.5 Anion Gap 7.5 BUN 12 D Creatinine 0.78 Estimated GFR/1.73 m2 >= 60.00 Glucose 131 H Calcium 7.9 L Magnesium 2.0 Total Bilirubin 0.6 Conjugated Bilirubin 0.21 H AST 30 ALT 114 H Alkaline Phosphatase 243 H C-Reactive Protein 2.07 H Total Protein 6.2 L Albumin 2.6 L 04/10/19 04/10/19 08:10 08:10 WBC RBC Hgb Hct MCV MCH MCHC RDW Plt Count MPV Immature Gran % Neutrophils % Lymphocytes % Monocytes % Eosinophils % Basophils % Absolute Neutrophils Absolute Lymphocytes Absolute Monocytes Absolute Eosinophils Absolute Basophils ESR 46 H Sodium Potassium Chloride Carbon Dioxide Anion Gap BUN Creatinine Estimated GFR/1.73 m2 Glucose Calcium Magnesium Total Bilirubin Conjugated Bilirubin AST ALT Alkaline Phosphatase C-Reactive Protein 4.77 H Total Protein Albumin [facility] Medical History Diabetes mellitus (Chronic) Pain (Acute) Rheumatoid arthritis (Chronic) Surgical History Status post total left knee replacement (Acute) Social History Smoking/Tobacco Use Status: Never Drug use: Never Do you feel safe at home: Yes Do you feel safe in your relationship?: Yes
[2019-04-11] MEDS: Insulin Aspart 300 UNITS/3 ML PEN SC (11:56)
--- NOTE | 2019-04-11 12:30 | PDOC.HHF2F ---
1. Encounter Date and Reason I certify that SUKHDEV MEJIA was seen by Cherise Almendarez on 04/11/19 and that I had a [id number] encounter with this patient that meets the physician face to face encounter requirements. 2. Clinical Findings Supporting Skilled Need and Homebound Status I certify that home health services are medically necessary, include either intermittent senior living and/or physical/speech therapy, and that this patient is homebound in that absences from the home require considerable and taxing effort and are infrequent or of short duration, or are attributable to the need to receive medical care. [X] (a) Attached documentation from encounter provides clinical findings supporting skilled need and homebound status (including what assistance patient requires to leave the home). The encounter with the patient was in whole, or in part, for the following medical condition, which is the primary reason for home health care: LOWER EXTREMITY PAIN Fpc: Recent revision of left knee with wound that will need dressing changes Physical Therapy: Revision of left knee two weeks ago, Unable to bear weight on left leg for up to 4 weeks to 6 months, and also has osteopenia from RA and OA with minimal weight bearing to RLE Could also benefit from Occupational therapy [employer]: To help facilitate social issues around health and care in the home. Homebound: 3. Certification and Authentication I certify that I composed the above information based on my clinical judgement relating to this patient's medical condition and, if applicable, clinical findings communicated to me by the NPP or inpatient physician who performed the Home Health Referral. All further orders will be obtained through (Community Based Physician - PCP)
--- NOTE | 2019-04-11 15:30 | PDOC.CMDIS ---
LACE Index Scoring Tool - Questions: Length of Stay (in days): 2 Acuity (Admit via E.D.?): Yes E.D. Visits: 1 - Answers: Total Score: 6 Risk of Readmission: Low Risk Care Management Discharge Reason for Hospitalization: Lower Extremity Pain Discharge Plan: Michelle will return home with new services for Nursing, PT, OT and Social Work. Request for a manual wheel chair sent to [facility]. [facility] will transport by car. Patient/Family Education Needs: Discharge instructions and importance of the scheduled follow up appointments. Services Needed at Discharge: DME Agency, Home Health Care Services, Homemaking Services, Occupational Therapy, Physical Therapy
--- NOTE | 2019-04-12 10:21 | PT.DS ---
Date of service 04/12/19 Time of Service 10:21 PT Notes Date: 04/12/19 Referring Doctor: Dr. Guardado PT Orders: PT CONSULT: unable to ambulate Precautions: NWB LLE, no quad activation LLE, ? WBing status right foot Treatment Dates: 04/10/19 - 04/11/19 This document serves as a summary of care. No PT services were provided on this date. Patient Profile/Admitting Diagnosis: Patient admitted via ER due to acute onset, severe foot pain. She has been NWB on the LLE for the past 2 weeks, after a TKA revision and quad tendon repair. She's in a locking brace at 0 degrees at all times. Since onset of foot pain, she also developed centralized LBP. She was seen for 2 PT sessions and received orthopedic consult, with fracture ruled out by CT. She was able to effectively transfer with CGA and maintain NWB on the LLE, which is her baseline level of function. Subjective: None obtained due to discharge 04/11/19. Objective: ROM: Right Upper Extremity: WFL Left Upper Extremity: WFL Right Lower Extremity: Hip flexion allows 100 degrees passively. Knee motion allows 0-100 degrees. Ankle PF allows 40 degrees, DF to 5 degrees. Inversion/eversion allows approx 30 degree arc of motion. She demonstrates SLR to 40 degrees, with exacerbation of back pain although no symptoms of foot pain. No alleviation with traction. Left Lower Extremity: not assessed due to post-operative status Strength: Right Upper Extremity: WFL Left Upper Extremity: WFL Right Lower Extremity: Quads 3+/5. Ankle DF 4/5. EHL 3+/5. Left Lower Extremity: Not assessed proximally. Ankle DF is 4/5. EHL is 4-/5. Sensation: intact distally Bed Mobility/Transfers: supine->sit: min A sit->supine: SBA rolling: mod A x 2 sit->stand: CGA with fracture boot on right foot stand->sit: CGA with fracture boot on right foot stand-pivot transfer: CGA, NWB LLE with hinged locking brace on LLE and fracture boot on right LE Balance: Static Sitting: good Dynamic Sitting: good Static Standing: fair Dynamic Standing: fair Assessment: Patient is a 63 year old female referred to physical therapy services with the diagnosis of right foot pain. Patient presents with clinical signs and symptoms consistent with diagnosis, in the presence of recent L knee surgery, requiring her to be NWB on the LLE for several weeks. She is additionally osteoporotic due to chronic steroid treatment for RA, and has a h/o of multiple atraumatic foot fractures. Foot fracture was ruled out with CT scan and patient was able to tolerate WBing on the RLE with use of fracture boot, sufficient to allow for independent stand->pivot transfers, which is her baseline as she recovers from left quad tendon repair. Based on her improved mobility, she is safe for transition back home with family assistance. Goals: Goals X1 week 1. Supine-Sit : independent with hinged brace and leg assist (progressing toward) 2. Sit-Supine : independent with hinged brace and leg assist (progressing toward) 3. Sit-Stand : TBD based on CT and WB recommendations (able to complete with CGA and FWW) 4. Stand-Sit : TBD based on CT and WB recommendations(able to complete with CGA and FWW) 5. Bed-Chair : TBD based on CT and WB recommendations(able to complete with CGA and FWW) 6. Chair-Bed : TBD based on CT and WB recommendations(able to complete with CGA and FWW) Plan of Care/Treatment Plan: D/C from PT services in acute care setting DISCHARGE RECOMMENDATIONS: home TREATMENT CODE/TIME: no treatment provided on this date Jocelyn Raymond, PT, DPT [facility]
== END 2019-04-11 14:00 | disposition home or self-care (01) ==
LOC: ER 22:53 → MS 23:37
PROVIDERS: Internal Medicine; Nurse Practitioner Family; Admitting Provider General Practice; Emergency Provider Emergency Medicine; PCP Family Medicine; Visit Provider Internal Medicine
DX: M79.671 Pain in right foot (principal); M54.9 Dorsalgia, unspecified; Z47.1 Aftercare following joint replacement surgery; Z96.652 Presence of left artificial knee joint; M06.9 Rheumatoid arthritis, unspecified; M85.89 Other specified disorders of bone density and structure, multiple sites; T45.1X5A Adverse effect of antineoplastic and immunosuppressive drugs, initial encounter; L89.312 Pressure ulcer of right buttock, stage 2; Z87.310 Personal history of (healed) osteoporosis fracture; Z79.52 Long term (current) use of systemic steroids; Z79.899 Other long term (current) drug therapy; E11.9 Type 2 diabetes mellitus without complications; Z79.4 Long term (current) use of insulin; E66.1 Drug-induced obesity; Z68.36 Body mass index [BMI] 36.0-36.9, adult
CPT/HCPCS: 36415; 51702; 80048; 80053; 80076; 85652; 96374; 96375; 96376; 97163; 97530; 99213; 99222; 99233; 99239; 99285; J1650; 73502; 73630; 73700; 81003; 83735; 84550; 85025; 86140; 99217; 99219; 99226; 99284; G0378; J1885; J3475; J7509; J7512

== ENCOUNTER 2019-05-05 11:14 | Emergency (ER) | payer MEDICARE, OTHER, SELFPAY ==
[2019-05-05 11:22] VITALS: BP 128/58; PULSE 81; RESP 16; TEMP 36; O2SAT 94
--- NOTE | 2019-05-05 11:36 | W.ED.GENAD ---
Discharge Plan Disposition Patient Disposition: HOME Condition: Stable Discharge Details Chief Complaint: Orthopedic Clinical Impression: Bleeding from wound Primary Care Provider: Chito Brunner ED Provider: Williams Starr Home Meds and New Rx's Prescriptions: Continued furosemide 40 MG tablet 40 mg PO DAILY PRNRF: 0 potassium chloride 10 MEQ capsule, extended release 10 meq PO DAILY PRNRF: 0 Lantus U-100 Insulin 100 UNIT/ML solution 42 units Sub-Q DIRECTED RF: 0 albuterol sulfate 3 ML solution for nebulization 1 unit Inhalation QID PRNRF: 0 atorvastatin [Lipitor] 10 MG tablet 10 mg PO DAILY RF: 0 fluconazole 150 MG tablet 150 mg PO .X1 PRNRF: 0 methylprednisolone 4 MG tablet 4 mg PO DAILY RF: 0 amlodipine 5 MG tablet 5 mg PO BID RF: 0 leflunomide [Arava] 20 MG tablet 20 mg PO DAILY RF: 0 esomeprazole magnesium [Nexium] 40 MG capsule,delayed release(DR/EC) 40 mg PO DAILY RF: 0 betamethasone, augmented [Diprolene] 50 GM ointment 1 applic Topical DAILY PRNRF: 0 folic acid 1 MG tablet 1 mg PO DAILY RF: 0 montelukast 10 MG tablet 10 mg PO DAILY RF: 0 zolpidem 10 MG tablet 10 mg PO HS RF: 0 calcium carbonate-vitamin D3 [Calcium 600 + D(3)] 1 EACH tablet 1 tab PO BID RF: 0 metoprolol succinate 50 mg Tablet Extended Release 24 Hr 50 mg PO DAILY RF: 0 aspirin 81 mg Tablet,Chewable 81 mg PO DAILY RF: 0 hydrochlorothiazide 25 mg Tablet 25 mg PO DIRECTED RF: 0 Januvia 50 mg Tablet 50 mg PO DAILY RF: 0 Multi Vitamin 9 mg iron/15 mL Liquid 1 mg PO DAILY RF: 0 hydromorphone 8 mg Tablet 8 mg PO Q6H PRN PRNRF: 0 tizanidine 2 mg Tablet 2 mg PO Q8H PRN PRNRF: 0 lisinopril 10 mg Tablet 10 mg PO DAILY RF: 0 insulin lispro [Humalog KwikPen Insulin] 100 unit/mL Insulin Pen 10 unit SUBCUT 1200 RF: 0 Breo Ellipta 200-25 mcg/dose Blister With Device 2 ea INHALATION QHS RF: 0 Humira 10 mg/0.2 mL Syringe Kit 10 mg SUBCUT RF: 0 albuterol sulfate 0.63 mg/3 mL Solution For Nebulization 2 mg inhalation PRN PRNRF: 0 diazepam [Valium] 2 mg tablet 2 mg PO BID PRN (Reason: back pain) Qty: 20 RF: 0 Narcan 4 mg/actuation spray,non-aerosol 1 spray RICCI ONCE PRN (Reason: opioid overdose) Qty: 2 RF: 0 prednisone 20 mg tablet 20 mg PO DAILY Qty: 13 RF: 0 Discharge Instructions Additional Instructions: if bleeding recurs hold pressure and use the pressure dressing follow up with your orthopedist as needed if you have bleeding that doesn't stop, chest pain, difficulty breathing return to the emergency department Medical Decision Making 63 yo female comes in with bleeding from anterior knee. [place] [facility] [place] [facility] [place] past [place]. She states she hd bleeding rom her left anterior leg surgical site last night. She has no bleeding now but her knee does have some swelling with bruising. Normal sensation, no warmth or redness to suggest infection. I suspect she had a hematoma from her fall and came through the small dehiscence of her wound that is 0.5cm. No bleeding now so do not feel any acute therapy indicated, will have nursing place pressure dressing and /c home Differential Diagnosis hematoma, wound dehiscence HPI General Mode of arrival: wheelchair. Date/Time Provider Initiated Documentation: 05/05/19 11:29. Limitations to Documentation: no limitations. Information obtained by: patient. History of Present Illness 63 year old F presents to the emergency department with the chief complaint of bleeding from anterior left knee, described as moderate, and it has been now resolved. No relieving factors improve symptom(s), No exacerbating factors reported . Patient did receive the following treatments prior to arrival, none Related Data Home Medications Medication Instructions Recorded Confirmed Lantus U-100 Insulin 42 units SUB-Q DIRECTED 01/11/14 04/09/19 albuterol sulfate 1 unit INHALATION QID PRN 01/11/14 04/09/19 amlodipine 5 mg PO BID 01/11/14 04/09/19 atorvastatin [Lipitor] 10 mg PO DAILY 01/11/14 04/09/19 betamethasone, augmented 1 applic TOPICAL DAILY PRN 01/11/14 04/09/19 [Diprolene] calcium carbonate-vitamin D3 1 tab PO BID 01/11/14 04/09/19 [Calcium 600 + D(3)] esomeprazole magnesium [Nexium] 40 mg PO DAILY 01/11/14 04/09/19 fluconazole 150 mg PO .X1 PRN 01/11/14 02/10/14 folic acid 1 mg PO DAILY 01/11/14 04/09/19 furosemide 40 mg PO DAILY PRN 01/11/14 04/09/19 leflunomide [Arava] 20 mg PO DAILY 01/11/14 04/09/19 methylprednisolone 4 mg PO DAILY 01/11/14 04/09/19 montelukast 10 mg PO DAILY 01/11/14 04/09/19 potassium chloride 10 meq PO DAILY PRN 01/11/14 04/09/19 zolpidem 10 mg PO HS 01/11/14 04/09/19 Breo Ellipta 2 ea INHALATION QHS 04/09/19 04/09/19 Humira 10 mg SUBCUT 04/09/19 Januvia 50 mg PO DAILY 04/09/19 04/09/19 Multi Vitamin 1 mg PO DAILY 04/09/19 04/09/19 albuterol sulfate 2 mg INHALATION PRN PRN 04/09/19 04/09/19 aspirin 81 mg PO DAILY 04/09/19 04/09/19 hydrochlorothiazide 25 mg PO DIRECTED 04/09/19 04/09/19 hydromorphone 8 mg PO Q6H PRN PRN 04/09/19 04/09/19 insulin lispro [Humalog KwikPen 10 unit SUBCUT 1200 04/09/19 04/09/19 Insulin] lisinopril 10 mg PO DAILY 04/09/19 04/09/19 metoprolol succinate 50 mg PO DAILY 04/09/19 04/09/19 tizanidine 2 mg PO Q8H PRN PRN 04/09/19 04/09/19 Narcan 1 spray RICCI ONCE PRN #2 each 04/11/19 diazepam [Valium] 2 mg PO BID PRN #20 tab 04/11/19 prednisone 20 mg PO DAILY #13 tab 04/11/19 Previous Rx's Medication Instructions Recorded Narcan 1 spray RICCI ONCE PRN #2 each 04/11/19 diazepam [Valium] 2 mg PO BID PRN #20 tab 04/11/19 prednisone 20 mg PO DAILY #13 tab 04/11/19 Allergies Allergy/AdvReac Type Severity Reaction Status Date / Time clarithromycin [From Biaxin] Allergy Intermediate Skin Rash Unverified 05/05/19 11:27 Penicillins Allergy Intermediate Skin Rash Unverified 05/05/19 11:27 Sulfa (Sulfonamide Allergy Intermediate Skin Rash Unverified 05/05/19 11:27 Antibiotics) capsaicin Allergy Anaphylaxsi Unverified 05/05/19 11:27 s nickel Allergy Unverified 05/05/19 11:27 General Stated Complaint: Orthopedic ARABELLA: 4 Review of Systems Review of Systems All systems reviewed & are unremarkable except as noted in HPI and below Constitutional Denies chills, Denies fever(s) and Denies weakness Cardiovascular Denies chest pain and Denies dyspnea Respiratory Denies cough and Denies dyspnea Gastrointestinal Denies abdominal pain, Denies nausea and Denies vomiting Musculoskeletal Denies joint swelling Neurologic Denies weakness PFSH Social History Smoking/Tobacco Use Status: Never Drug use: Never Do you feel safe at home: Yes Do you feel safe in your relationship?: Yes Exam Const General: no acute distress Orientation: alert HENMT Head: normal to inspection Ears: external ears normal General nose exam: external nose normal Mouth: moist mucous membranes Eyes General: appearance normal, both eyes and all related structures Neck Neck: normal visual inspection Resp Effort & Inspection: normal respiratory effort and able to speak in complete sentences Cardio Rate: regular rate Skin General skin exam: no rashes or lesions noted Neuro General: alert and oriented x3 Extrem General: normal to inspection Psych Mental Status: mental status grossly normal Course Vital Signs Temperature 36 C L 05/05/19 11:22 Pulse 81 05/05/19 11:22 Respiratory Rate 16 05/05/19 11:22 Blood Pressure 128/58 L 05/05/19 11:22 Pulse Oximetry 94 L 05/05/19 11:22 Temperature 36 C L 05/05/19 11:22 Temperature Source Skin 05/05/19 11:22 Pulse 81 05/05/19 11:22 Respiratory Rate 16 05/05/19 11:22 Blood Pressure 128/58 L 05/05/19 11:22 Blood Pressure Position Sitting 09/11/19 11:22 Pulse Oximetry 94 L 05/05/19 11:22 Oxygen Delivery Method Room Air 05/05/19 11:22 Oxygen Flow Rate 0 05/05/19 11:22 Pain Level 6 05/05/19 11:22
== END 2019-05-05 12:01 | disposition home or self-care (01) ==
LOC: ER 11:58
PROVIDERS: Emergency Provider Emergency Medicine; PCP Nurse Practitioner
DX: T81.30XA Disruption of wound, unspecified, initial encounter (principal); W19.XXXA Unspecified fall, initial encounter; Y83.1 Surgical operation with implant of artificial internal device as the cause of abnormal reaction of the patient, or of later complication, without mention of misadventure at the time of the procedure; Z96.652 Presence of left artificial knee joint
CPT/HCPCS: 99282

== ENCOUNTER 2021-01-31 08:03 | Emergency (ER) | payer MEDICARE, OTHER, SELFPAY ==
[2021-01-31 08:12] VITALS: PULSE 79; RESP 16; TEMP 36.8; O2SAT 97
--- OUTSIDE RECORDS SUMMARY | 2021-01-31 08:12 | XMS_ITS ---
:1955 Author Organization [facility] Address [address] [address] Care Team Providers Name Role Phone Renny Brunner Unavailable Unavailable PROBLEMS Type Condition ICD9-CM [id number] Onset Condition SNOMED Cod e Code Code Dates Status Problem Spinal stenosis of M48.07 Active 1 1205068 lumbosacral region Problem Age-related M81.0 Active 80966590 2 osteoporosis without current pathological fracture Problem Type 2 diabetes E11.42 Active 7137 83215 mellitus with peripheral neuropathy Problem Hyperlipidemia, E78.5 Active 5582 2004 unspecified hyperlipidemia type Problem Gastroesophageal K21.9 Active 235 221677 reflux disease, esophagitis presence not specified Problem Rheumatoid arthritis M05.79 Active 00096876 involving multiple sites with positive rheumatoid factor Problem Gait abnormality R26.9 Active 223 43384 Problem MOELLER (nonalcoholic K75.81 Active 4 69756629 steatohepatitis) 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 Problem Moderate persistent J45.40 Active 683262130 asthma without complication Problem Vitamin D deficiency E55.9 Active 07244598 Problem Opioid dependence F11.20 Active 75 114827 with physiological dependence Problem Chronic pain G89.4 Active 6911707 06 syndrome Problem Cervical spinal M48.02 Active 8356 1009 stenosis Problem Complex regional G57.72 Active 408 949259 pain syndrome type 2 of left lower extremity Problem Benign essential I10 Active 120 1005 hypertension Problem Insomnia, G47.00 Active 871674080 unspecified Problem Venous insufficiency I87.2 Active 54281860 (chronic) (peripheral) Problem Status post total Z96.652 Active 91 7071856705 left knee replacement Problem Controlled substance Z79.899 Active agreement signed Problem Long-term current Z79.891 Active 24 0735541 use of opiate analgesic ALLERGIES Substance Reaction Event Type Date Status Sulfamethoxazole-Trimethoprim rash Drug Allergy Jun, 0 Active Roxicodone stomach upset Drug Allergy Jun, Active Biaxin stomach upset Drug Allergy Jun, Active penicillin Unknown Non Drug Allergy Jun, Active Amoxicillin rash Drug Allergy Jun, Active Gabapentin dizziness Drug Allergy Jun, Active ENCOUNTERS Encounter Location Date Diagnosis [facility] [address] 20 Aug, 2020 [address] [place] [address] [facility] 16 Jul, [address] [place] [address] [facility] [address] 09 Jul, 2020 [address] [place] [address] [facility] [address] 30 Jun, 2020 Chronic pa in syndrome G89.4 [address] [place] [address] [facility] [address] 17 Jun, [address] [place] [address] [facility] [address] 16 Jun, 2020 Chronic pa in syndrome G89.4 [address] [place] [address] [facility] [address] 16 Jun, [address] [place] [address] [facility] [address] 13 Jun, 2020 Moderate p ersistent asthmatic [address]ICE [address] bronchitis with acute [place] exacerbation J45 .41 [address] [facility] [address] 13 Jun, [address] [place] [address] [facility] [address] 12 Jun, [address] [place] [address] [facility] [address] 11 Jun, [address] [place] [address] [facility] [address] [facility] 11 Jun, 2020 Type 2 diabet es mellitus with [address] peripheral neuro lorna E11.42 [place] ; Arthritis of r ight subtalar 59485 joint M19.071 ; Sinus tarsitis of righ t foot M25.571 ; Rheuma toid arthritis involv ing multiple sites with posit familia rheumatoid facto r M05.79 and Predislocation s yndrome of metatarsophalang eal joint of right foot M25.8 71 [facility] [address] 04 Jun, [address] [place] [address] [facility] Jun, Chronic pa in syndrome G89.4 [address] [place] [address] [facility] Jun, Chronic pa in syndrome G89.4 [address] [place] [address] [facility] May, [address]ICE [address] [place] [address] [facility] May, Rheumatoid arthritis [address] involving multip le sites with [place] positive rheumat oid factor 44351 M05.79 [facility] 8 [facility] May, Insomnia, unspecified G47.00 [address] [place] [address] [facility] 8 [facility] May, [address]ICE [address] [place] [address] [facility] 8 [facility] May, Moderate p ersistent asthmatic [address]ICE [address] bronchitis with acute [place] exacerbation J45 .41 ; Benign 376[address] essential hypert ension I10 ; Left anterior kn ee pain M25.562 ; 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 2 ; Hyperlipidemia, unspecified hyperlipidemia t ype E78.5 ; Gastroesophageal reflux disease, esophag itis presence not specified K2 1.9 ; Moderate persist ent asthma without complica tion J45.40 ; Rheumatoid arthr itis involving multip le sites with positive rheumat oid factor M05.79 ; MOELLER (n onalcoholic steatohepatitis) K75.81 ; Insomnia, unspec ified G47.00 ; Venous insuffi ciency (chronic) (perip heral) I87.2 ; Gait abnormali ty R26.9 ; Age-related oste oporosis without current pathological fracture M81.0 ; Vitamin D deficiency E55.9 ; Spinal stenosis of lumb osacral region M48.07 ; Cervical spinal stenosis M48.02 ; Complex regional pain syndrome type 2 of left lower extremity G57.72 ; Chronic pain syndrome G8 9.4 ; [facility] use of drug Z79.899 ; Status post tota l left knee replacement Z96. 652 ; Opioid dependence with physiological dependence F11.2 0 ; Long-term current use of o piate analgesic Z79.89 1 ; Controlled subst ance agreement signed Z79.899 and Encounter for munization Z23 [facility] [address] 16 May, [address] [place] [address] [facility] [address] 14 May, [address] [place] [address] [facility] [address] 14 May, [address] [place] [address] [facility] [address] 14 May, [address] [place] [address] [facility] [address] 28 Apr, 2020 Chronic pa in syndrome G89.4 [address] [place] [address] [facility] [address] 28 Apr, [address] [place] [address] [facility] [address] [facility] [address] 23 Apr, 2020 [place] [address] [facility] [address] 17 Apr, 2020 Moderate p ersistent asthma [address]ICE [address] without complica tion J45.40 [place] [address] [facility] [address] 17 Apr, [address] [place] [address] [facility] 09 Apr, 2020 Type 2 diabet es mellitus with [address] peripheral neuro lorna E11.42 [place] ; Arthritis of r ight subtalar 27777 joint M19.071 ; Sinus tarsitis of righ t foot M25.571 ; Rheuma toid arthritis involv ing multiple sites with posit familia rheumatoid facto r M05.79 and Age-related oste oporosis without current pathological fracture M81.0 [facility] [address] 07 Apr, 2020 Chronic pa in syndrome G89.4 [address] [place] [address] [facility] [address] 03 Apr, 2020 [place] [address] [facility] [address] 02 Apr, [address] [place] [address] [facility] [address] 18 Mar, [address] [place] [address] [facility] [address] 17 Mar, [address] [place] [address] [facility] [address] [place] 17 Mar, [address] [place] [address] [facility] [address] [place] 13 Mar, [address] [place] [address] [facility] [address] [place] 10 Mar, 2020 Chronic pa in syndrome G89.4 [address] [place] [address] [facility] [address] 04 Mar, [address] [place] [address] [facility] [address] Feb, [address] [place] [address] [facility] 8 [facility] Feb, Age-relate d osteoporosis [address]ICE [address] without current pathological [place] fracture M81.0 ; Nasal [address] mucositis (ulcer ative) J34.81 ; Moderate persi stent asthma without complica tion J45.40 ; Gait abnormality R26.9 ; MOELLER (nonalcoholic steatohepatitis) K75.81 ; Rheumatoid arthr itis involving multip le sites with positive rheumat oid factor M05.79 ; Benign essential hypertension I10 ; Type 2 diabetes mellitu s with peripheral neuro lorna E11.42 ; Gastroesophage al reflux disease, esophag itis presence not specified K2 1.9 ; Hyperlipidemia, unspecified hyperlipidemia t ype E78.5 ; Insomnia, unspec ified G47.00 and Chronic pain syndrome G89.4 [facility] [address] [place] [address] Feb, Type 2 werner betes mellitus with [address]ICE [address] peripheral neuro lorna E11.42 [place] ; Arthritis of r ight subtalar 03308 joint M19.071 ; Sinus tarsitis of righ t foot M25.571 ; Rheuma toid arthritis involv ing multiple sites with posit familia rheumatoid facto r M05.79 and Age-related oste oporosis without current pathological fracture M81.0 [facility] 8 [facility] Feb, Medicare a nnual wellness [address]ICE [address] visit, subsequen t Z00.00 ; [place] Moderate persist ent asthmatic [address] bronchitis with acute exacerbation J45 .41 ; Benign essential hypert ension I10 ; 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 ; Hyperlipidemia , unspecified hyperlipidemia t ype E78.5 ; Gastroesophageal reflux disease, esophag itis presence not specified K2 1.9 ; Moderate persist ent asthma without complica tion J45.40 ; Rheumatoid arthr itis involving multip le sites with positive rheumat oid factor M05.79 ; MOELLER (n onalcoholic steatohepatitis) K75.81 ; Insomnia, unspec ified G47.00 ; Venous insuffi ciency (chronic) (perip heral) I87.2 ; Gait abnormali ty R26.9 ; Age-related oste oporosis without current pathological fracture M81.0 ; Vitamin D deficiency E55.9 ; Spinal stenosis of lumb osacral region M48.07 ; Cervical spinal stenosis M48.02 ; Complex regional pain syndrome type 2 of left lower extremity G57.72 ; Chronic pain syndrome G8 9.4 ; 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 652 ; Opioid dependence with physiological dependence F11.2 0 ; Long-term current use of o piate analgesic Z79.89 1 ; Controlled subst ance agreement signed Z79.899 ; Need for hepatit is C screening test Z 11.59 ; Screening for bl adder cancer Z12.6 ; Colon ca ncer screening Z12.11 ; Encounter for drug screeni ng Z02.83 ; Screening for ma lignant neoplasm of michelle st Z12.39 ; Screening breast examination Z12.39 ; Risk fo r falls Z91.81 ; Encount er for immunization Z23 ; Alcohol screening Z13.89 and Screening for de pression Z13.89 [facility] 8 [facility] Feb, [address]ICE [address] [place] [address] [employer] [facility] [address] [facility] Feb, [place] [address] [employer] [address] [facility] Feb, Sacral pain M53.[address] [facility] 8 [facility] 14 Feb, 2020 Chronic pa in syndrome G89.[address] [facility] 8 [facility] 13 Feb, 2020 Chronic pa in syndrome G89.4 [address] [place] [address] [facility] 8 [facility] 07 Feb, 2020 Left media l knee pain M25.562 [address] [place] [address] [facility] [address] [facility] 17 Jan, 2020 Type 2 diabet es mellitus with [address] peripheral neuro lorna E11.42 [place] ; Arthritis of r ight subtalar 68521 joint M19.071 ; Sinus tarsitis of righ t foot M25.571 ; Rheuma toid arthritis involv ing multiple sites with posit familia rheumatoid facto r M05.79 and Age-related oste oporosis without current pathological fracture M81.0 [facility] 8 [facility] 15 Jan, 2020 Chronic pa in syndrome G89.4 [address] [place] [address] [facility] 8 [facility] Jan, [address]ICE [address] [place] [address] [facility] 8 [facility] Jan, [address]ICE [address] [place] [address] [facility] 8 [facility] Jan, Epidermal inclusion cyst [address]ICE [address] L72.0 ; Left ant erior knee [place] pain M25.562 ; [place] right [address] ankle and joints of right foot M25.571 ; B enign essential hypert ension I10 ; 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 ; Hyperlipidemia , unspecified hyperlipidemia t ype E78.5 ; Gastroesophageal reflux disease, esophag itis presence not specified K2 1.9 ; Moderate persist ent asthma without complica tion J45.40 ; Rheumatoid arthr itis involving multip le sites with positive rheumat oid factor M05.79 ; MOELLER (n onalcoholic steatohepatitis) K75.81 ; Insomnia, unspec ified G47.00 ; Venous insuffi ciency (chronic) (perip heral) I87.2 ; Gait abnormali ty R26.9 ; Age-related oste oporosis without current pathological fracture M81.0 ; Vitamin D deficiency E55.9 ; Spinal stenosis of lumb osacral region M48.07 ; Cervical spinal stenosis M48.02 ; Chronic pain syn drome G89.4 ; [facility] use of drug Z79.899 ; Status post to elyssa left knee replacement Z96. 652 ; Opioid dependence with physiological dependence F11.2 0 ; Encounter for immunization Z23 ; Long-term curren t use of opiate analgesic Z79.891 ; Screening for bl adder cancer Z12.6 and Contro lled substance agreem ent signed Z79.899 [facility] 8 [facility] December, [address]ICE [address] [place] [address] [facility] 8 [facility] December, [address]ICE [address] [place] [address] [facility] 8 [facility] December, Chronic pa in syndrome G89.4 [address] [place] [address] [facility] [address] [facility] December, Right ankle pa in M25.571 ; [place], [place] Right leg pain M 79.604 ; [address] Arthralgia of an kle or foot, right M25.571 an d Difficulty walking due to a nkle and foot joint R26.2 [facility] [address] [facility] December, [place] [address] [facility] [address] December, Type 2 werner betes mellitus with [address]ICE [address] peripheral neuro lorna E11.42 [place] [address] [place] [address] [facility] [address] [place] December, Type 2 werner betes mellitus with [address]ICE [address] peripheral neuro lorna E11.42 [place], [place] [address] [place] [address] [facility] [address] December, [address] [place] [address] [place] [address] [facility] [address] Nov, [address] [place], [place] [address] [place] [address] [facility] [address] [place] Nov, Chronic pa in syndrome G89.4 [address] [place], [place] [address] [place] [address] [facility] [place] 14 Nov, [address] PHYSICIAN [address] 13 Nov, [address] [facility] [place] Nov, Gastroesop hageal reflux [address]ICE [address] disease, esophag itis presence [place] not specified K2 1.9 ; Benign 21985 essential hypert ension I10 and Hyperlipidem ia, unspecified hype rlipidemia type E78.5 [facility] [address] [place] Nov, Chronic pa in syndrome G89.4 [address] [place], [place] [address] [place] [address] [facility] [address] [place] Nov, Chronic pa in syndrome G89.4 [address] [place] [address] [place] [address] [facility] [address] [place] Oct, Rheumatoid arthritis [address] involving multip le sites with [place] positive rheumat oid factor [address]1316 M05.79 and Moder ate persistent asthm a without complication J45 .40 [facility] [address] 24 Oct, 2019 OFFICE [place] [address] [place] [address] [facility] [place] [place] Oct, Type 2 werner betes mellitus with [address]ICE [address] peripheral neuro lorna E11.42 [place], [place] [address] [place] [address] [facility] [place] Oct, [address] [place] [address] [place] [address] [facility] [address] [place] Oct, [address] [place] [address] [place] [address] [facility] [address] [place] Oct, Chronic pa in syndrome G89.4 [address] [place], [place] [address] [place] [address] [facility] [place] Oct, [address] [place] [address] [place] [address] [facility] [address] [place] Oct, Dysuria R3 0.0 [address] [place] [address] [facility] [address] [place] Oct, [address] [place] [address] [facility] [place] Oct, [address] [place] [address] [facility] [place] Oct, [address] [place] [address] [facility] [place] Oct, [address] [place] [address] [facility] [address] 17 Oct, 2019 [place] [address] [facility] [place] Oct, [address] [place] [address] [facility] [place] 17 Oct, [address] [place] [address] [facility] [address] [place] 17 Oct, 2019 MOELLER (cristobal lcoholic [address]ICE [address] steatohepatitis) K75.81 and [place] Insomnia, unspec ified G47.00 [address] [facility] [address] [place] 09 Oct, 2019 Chronic pa in syndrome G89.4 [address] [place] [address] [facility] [address] [facility] 04 Oct, 2019 Right foot pa in M79.671 [address] Sprain of right foot, initial [place], [place] encounter S93.60 1A [address] [facility] [address] [place] [place] Oct, [address] [place] [address] [facility] [place] Oct, [address] [place] [address] [facility] [address] 27 Sep, 2019 [place] [address] [facility] [place] Sep, [address] [place] [address] [facility] [place] Sep, [address] [place] [address] [facility] [place] Sep, Benign ess ential hypertension [address]10 [place] [address] [facility] [place] Sep, Benign ess ential hypertension [address]ICE [address] I10 ; Type 2 werner claribeles [place] mellitus with pe ripheral [address] neuropathy E11.4 2 ; Hyperlipidemia, unspecified hyperlipidemia t ype E78.5 ; Gastroesophageal reflux disease, esophag itis presence not specified K2 1.9 ; Moderate persist ent asthma without complica tion J45.40 ; Rheumatoid arthr itis involving multip le sites with positive rheumat oid factor M05.79 ; MOELLER (n onalcoholic steatohepatitis) K75.81 ; Insomnia, unspec ified G47.00 ; Venous insuffi ciency (chronic) (perip heral) I87.2 ; Gait abnormali ty R26.9 ; Age-related oste oporosis without current pathological fracture M81.0 ; Vitamin D deficiency E55.9 ; Spinal stenosis of lumb osacral region M48.07 ; Cervical spinal stenosis M48.02 ; Chronic pain syn drome G89.4 ; 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 652 ; Opioid dependence with physiological dependence F11.2 0 ; Long-term current use of o piate analgesic Z79.89 1 ; Controlled subst ance agreement signed Z79.899 ; Encounter for im munization Z23 and Screenin g for bladder cancer Z12.6 [facility] OFF[facility] [address] [place] [address] Sep, [place] [address] [facility] [place] [place] Sep, [address] [place], [place] [id number] [place] [address] [facility] [address] [place] [place] Sep, [address] [place] [address] [facility] [place] Sep, [address] [place], [place] [address] [place] [address] [facility] [address] [place] Sep, [address] [place], [place] [address] [place] [address] [facility] [place] 10 Sep, [address] [place] [address] [facility] [place] 10 Sep, [address] [place] [address] [facility] [place] 07 Sep, 2019 Moderate p ersistent asthma [address] without complica tion J45.40 [place], [place] [address] [place] [address] [facility] [place] Aug, [address] [place] [address] [facility] [place] Aug, [address] [place] [address] [facility] [place] Aug, [address] [place] [address] [facility] [place] Aug, [address] [place] [address] [facility] [place] Aug, Chronic pa in syndrome G89.4 [address] [place] [address] [place] [address] [facility] [place] Aug, Status pos t total left knee [address]ICE [address] replacement Z96. 652 ; Benign [place] essential hypert ension I10 ; [address] 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 ; Hyperlipidemia , unspecified hyperlipidemia t ype E78.5 ; Gastroesophageal reflux disease, esophag itis presence not specified K2 1.9 ; Moderate persist ent asthma without complica tion J45.40 ; Rheumatoid arthr itis involving multip le sites with positive rheumat oid factor M05.79 ; MOELLER (n onalcoholic steatohepatitis) K75.81 ; Insomnia, unspec ified G47.00 ; Venous insuffi ciency (chronic) (perip heral) I87.2 ; Gait abnormali ty R26.9 ; Age-related oste oporosis without current pathological fracture M81.0 ; Vitamin D deficiency E55.9 ; Spinal stenosis of lumb osacral region M48.07 ; Cervical spinal stenosis M48.02 ; Chronic pain syn drome G89.4 ; Opioid dependenc e with physiological de pendence F11.20 ; Long te rm use of drug Z79.899 ; L deepthi-term current use of o piate analgesic Z79.89 1 ; Encounter for immunization Z23 and Controlled subst ance agreement signed Z79.899 [facility] [employer] Aug, Chronic pa in syndrome G89.4 [address] [place] [address] [facility] [employer] Aug, [address] [place] [address] [facility] [address] [facility] Jul, [place] [address] [facility] [employer] Jul, Insomnia, unspecified G47.00 [address] [place] [address] [facility] [employer] Jul, [address] [place] [address] [facility] OFF[facility] Jul, Chron ic pain syndrome G89.4 [place] [address] [facility] [place] Jul, [address] [place] [address] [facility] [employer] [place] Jul, [address] [place] [address] [facility] [employer] Jul, [address] [place] [address] [facility] [employer] Jul, [address] [place] [address] [facility] [employer] [place] Jul, [address] [place] [address] [facility] Jul, [address] [place] [address] [facility] Jul, Chronic pa in syndrome G89.4 [address] [place] [address] [facility] Jul, Chronic pa in syndrome G89.4 [address] [place] [address] [facility] 8 [facility] Jul, Benign ess ential hypertension [address]ICE [address] I10 ; Type 2 werner betes [place] mellitus with pe ripheral 17959 neuropathy E11.4 2 ; Hyperlipidemia, unspecified hyperlipidemia t ype E78.5 ; Gastroesophageal reflux disease, esophag itis presence not specified K2 1.9 ; Moderate persist ent asthma without complica tion J45.40 ; Rheumatoid arthr itis involving multip le sites with positive rheumat oid factor M05.79 ; MOELLER (n onalcoholic steatohepatitis) K75.81 ; Insomnia, unspec ified G47.00 ; Venous insuffi ciency (chronic) (perip heral) I87.2 ; Gait abnormali ty R26.9 ; Age-related oste oporosis without current pathological fracture M81.0 ; Vitamin D deficiency E55.9 ; Spinal stenosis of lumb osacral region M48.07 ; Cervical spinal stenosis M48.02 ; Chronic pain syn drome G89.4 ; [facility] use of drug Z79.899 and Status post total left knee replacement Z96.652 [facility] [address] [place] [address] Jun, Rheumatoid arthritis OFFICE [place] involving multip le sites with [address] positive rheumat oid factor M05.79 [facility] May, Status pos t total left knee [address]ICE [address] replacement Z96. 652 ; Benign [place] essential hypert ension I10 ; 79056 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 ; Hyperlipidemia , unspecified hyperlipidemia t ype E78.5 ; Gastroesophageal reflux disease, esophag itis presence not specified K2 1.9 ; Moderate persist ent asthma without complica tion J45.40 ; Rheumatoid arthr itis involving multip le sites with positive rheumat oid factor M05.79 ; MOELLER (n onalcoholic steatohepatitis) K75.81 ; Insomnia, unspec ified G47.00 ; Venous insuffi ciency (chronic) (perip heral) I87.2 ; Gait abnormali ty R26.9 ; Age-related oste oporosis without current pathological fracture M81.0 ; Vitamin D deficiency E55.9 ; Spinal stenosis of lumb osacral region M48.07 ; Cervical spinal stenosis M48.02 ; Chronic pain syn drome G89.4 and 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 652 ; Benign [place] essential hypert ension I10 ; 17244 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 ; Hyperlipidemia , unspecified hyperlipidemia t ype E78.5 ; Gastroesophageal reflux disease, esophag itis presence not specified K2 1.9 ; Moderate persist ent asthma without complica tion J45.40 ; Rheumatoid arthr itis involving multip le sites with positive rheumat oid factor M05.79 ; MOELLER (n onalcoholic steatohepatitis) K75.81 ; Insomnia, unspec ified G47.00 ; Venous insuffi ciency (chronic) (perip heral) I87.2 ; Gait abnormali ty R26.9 ; Age-related oste oporosis without current pathological fracture M81.0 ; Vitamin D deficiency E55.9 ; Spinal stenosis of lumb osacral region M48.07 ; Cervical spinal stenosis M48.02 ; Chronic pain syn drome G89.4 ; 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 ; Influenza vacc ination administered at current visit Z23 and Encounte r for immunization Z23 [facility] May, [address]ICE [address] [place] [address] [facility] Apr, [address]ICE [address] [place] [address] [facility] Apr, [address]ICE [address] [place] [address] [facility] Apr, [address]ICE [address] [place] [address] [facility] Apr, Type 2 werner betes mellitus with [address]ICE [address] peripheral neuro lorna E11.42 [place] [address] [facility] 19 Apr, 2019 Preoperati ve general physical OFFICE [address] examination Z01. 818 ; Benign [place] essential hypert ension I10 ; 28323 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 ; Hyperlipidemia , unspecified hyperlipidemia t ype E78.5 ; Gastroesophageal reflux disease, esophag itis presence not specified K2 1.9 ; Moderate persist ent asthma without complica tion J45.40 ; Rheumatoid arthr itis involving multip le sites with positive rheumat oid factor M05.79 ; MOELLER (n onalcoholic steatohepatitis) K75.81 ; Insomnia, unspec ified G47.00 ; Venous insuffi ciency (chronic) (perip heral) I87.2 ; Gait abnormali ty R26.9 ; Age-related oste oporosis without current pathological fracture M81.0 ; Vitamin D deficiency E55.9 ; Spinal stenosis of lumb osacral region M48.07 ; Cervical spinal stenosis M48.02 ; Chronic pain syn drome G89.4 ; 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 and Screening fo r ischemic heart disease Z1 3.6 [facility] 16 Apr, [address] [place] [address] [facility] 16 Apr, 2019 Chronic pa in syndrome G89.4 ; [address]ICE [address] Insomnia, unspec ified G47.00 [place] and Bronchopneum onia J18.[id number] [place] [address] [facility] 13 Apr, [address] [place] [address] [facility] [place] Apr, [address]ICE [address] [place] [address] [facility] 12 Apr, [address] [place] [address] [facility] [place] Apr, [address]ICE [address] [place] [address] [facility] [place] [place] Apr, [address]ICE [address] [place] [address] [facility] [facility] [address] [facility] [address] 05 Apr, 2019 Chronic pa in syndrome G89.4 [place] [address] [facility] [place] Mar, [address]ICE [address] [place] [address] [facility] [place] Mar, Status pos t total left knee OFFICE [address] replacement Z96. 652 [place] [address] [facility] [place] Mar, Chronic pa in syndrome G89.4 [address] [place] [address] [facility] 8 [facility] Mar, Benign ess ential hypertension OFFICE [address] I10 ; Status pos t total left [place] knee replacement Z96.652 ; [address]9511 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 ; Hyperlipidemia , unspecified hyperlipidemia t ype E78.5 ; Gastroesophageal reflux disease, esophag itis presence not specified K2 1.9 ; Moderate persist ent asthma without complica tion J45.40 ; Rheumatoid arthr itis involving multip le sites with positive rheumat oid factor M05.79 ; MOELLER (n onalcoholic steatohepatitis) K75.81 ; Insomnia, unspec ified G47.00 ; Venous insuffi ciency (chronic) (perip heral) I87.2 ; Gait abnormali ty R26.9 ; Age-related oste oporosis without current pathological fracture M81.0 ; Vitamin D deficiency E55.9 ; Spinal stenosis of lumb osacral region M48.07 ; Cervical spinal stenosis M48.02 ; Chronic pain syn drome G89.4 and 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 [facility] 14 Mar, [address] [place] [address] [facility] 8 [facility] Mar, [address]ICE [address] [place] [address] [facility] 8 [facility] Mar, [address]ICE [address] [place] [address] Mar, [place] [address] [facility] [address] Mar, [place] [address] [facility] 8 [facility] Mar, OFFICE [address] [place] [address] [facility] 8 [facility] Feb, Chronic pa in syndrome G89.4 [address] [place] [address] [place] [facility] [address] Feb, [place] [address] [facility] Feb, Preoperati ve general physical OFFICE [address] examination Z01. 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 ; Hyperlipidemia , unspecified hyperlipidemia t ype E78.5 ; Gastroesophageal reflux disease, esophag itis presence not specified K2 1.9 ; Moderate persist ent asthma without complica tion J45.40 ; Rheumatoid arthr itis involving multip le sites with positive rheumat oid factor M05.79 ; MOELLER (n onalcoholic steatohepatitis) K75.81 ; Insomnia, unspec ified G47.00 ; Venous insuffi ciency (chronic) (perip heral) I87.2 ; Gait abnormali ty R26.9 ; Age-related oste oporosis without current pathological fracture M81.0 ; Vitamin D deficiency E55.9 ; Spinal stenosis of lumb osacral region M48.07 ; Cervical spinal stenosis M48.02 ; Chronic pain syn drome G89.4 ; [facility] use of drug Z79.899 and Screening fo r ischemic heart disease Z1 3.6 [facility] Feb, [place] [address] [facility] Feb, [address]ICE [address] [place] [address] [facility] Feb, OFFICE [address] [place], [place] [address] [place] [address] PHYSICIAN [address] [facility] Feb, OFFICE [address] PHYSICIAN [address] [facility] Feb, [place] [address] [facility] 8 [facility] Feb, Chronic pa in syndrome G89.[address] [place] [address] [facility] Feb, Injury of right ankle, OFFICE [address] initial encounte r S99.911A ; [place] Traumatic [place] head, [address] initial encounte r S09.90XA ; Open wound of ri ght ear, unspecified open wound type, initial encounte r S01.301A and Pressure ulc er of unspecified site , stage 1 L89.91 [facility] 8 [facility] Jan, [address]ICE [address] [place] [address] [facility] 8 [facility] Jan, Chronic pa in syndrome G89.[address] [place] [address] [facility] 8 [facility] Jan, [address]ICE [address] [place] [id number] [place] [address] [facility] 8 [facility] Jan, Benign ess ential hypertension [address]ICE [address] I10 ; Type 2 werner paola [place] mellitus with pe ripheral 85[address] neuropathy E11.4 2 ; Hyperlipidemia, unspecified hyperlipidemia t ype E78.5 ; Gastroesophageal reflux disease, esophag itis presence not specified K2 1.9 ; [facility] current use of opiate analgesic Z79.89 1 ; Moderate persistent asthm a without complication J45 .40 ; Rheumatoid arthr itis involving multip le sites with positive rheumat oid factor M05.79 ; MOELLER (n onalcoholic steatohepatitis) K75.81 ; Insomnia, unspec ified G47.00 ; Venous insuffi ciency (chronic) (perip heral) I87.2 ; Gait abnormali ty R26.9 ; Age-related oste oporosis without current pathological fracture M81.0 ; Vitamin D deficiency E55.9 ; Spinal stenosis of lumb osacral region M48.07 ; Cervical spinal stenosis M48.02 ; Chronic pain syn drome G89.4 and [facility] us e of drug Z79.899 [place] [facility] [address] Jan, Type 2 werner betes mellitus with OFFICE [place] peripheral neuro lorna E11.42 [address] [facility] [place] Jan, [address]ICE [address] [place] [address] [facility] [place] Jan, [address]ICE [address] [place] [address] [facility] [place] Jan, [address]ICE [address] [place] [address] [facility] [place] Jan, Moderate p ersistent asthmatic [address]ICE [address] bronchitis with acute [place] exacerbation J45 .41 [address] [employer] [address] Jan, [place] [address] [facility] [place] [place] Jan, Type 2 werner betes mellitus with [address]ICE [address] peripheral neuro lorna E11.42 [place] [address] [facility] [place] Jan, [address]ICE [address] [place] [address] [facility] [place] Jan, [address]ICE [address] [place] [address] [facility] 8 [place] Jan, [address]ICE [address] [place] [address] [facility] 8 [place] Jan, [address] [place] [address] [facility] [place] Jan, Chronic pa in syndrome G89.4 [address] [place] [address] [facility] [place] [place] December, [address]ICE [address] [place] [address] [facility] [place] December, [address]ICE [address] [place] [address] [facility] [place] December, Chronic pa in syndrome G89.[address] [place] [address] [facility] 8 [facility] December, Encounter for di abetic foot [place] exam E11.9 ; Typ e 2 diabetes 86732 mellitus with pe ripheral neuropathy E11.4 2 ; Age-related oste oporosis without current pathological fracture M81.0 ; Vitamin D deficiency E55.9 ; Spinal stenosis of lumb osacral region M48.07 ; Venous insufficiency (c hronic) (peripheral) I87 .2 ; Hammertoe of lef t foot M20.42 and Hammertoe of right foot M20.41 [facility] [address] [facility] December, [place] [address] [facility] 8 [facility] December, [address]ICE [address] [place] [address] [facility] 8 [facility] December, [address]ICE [address] [place] [address] [facility] 8 [facility] December, [address]ICE [address] [place] [address] [facility] 8 [facility] December, Benign ess ential hypertension [address]ICE [address] I10 ; Type 2 werner betes [place] mellitus with pe ripheral 80289 neuropathy E11.4 2 ; Hyperlipidemia, unspecified hyperlipidemia t ype E78.5 ; 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 ; Gastroesophageal reflux disease, esophag itis presence not specified K2 1.9 ; Moderate persist ent asthma without complica tion J45.40 ; Rheumatoid arthr itis involving multip le sites with positive rheumat oid factor M05.79 ; MOELLER (n onalcoholic steatohepatitis) K75.81 ; Insomnia, unspec ified G47.00 ; Gait abnormali ty R26.9 ; Age-related oste oporosis without current pathological fracture M81.0 ; Vitamin D deficiency E55.9 ; Spinal stenosis of lumb osacral region M48.07 ; Cervical spinal stenosis M48.02 ; Chronic pain syn drome G89.4 and [facility] us e of drug Z79.899 [facility] 8 [facility] Nov, Chronic pa in syndrome G89.[address] [place] [address] [facility] 8 [facility] Nov, [address]ICE [address] [place] [address] [facility] 8 [facility] Nov, [address]ICE [address] [place] [address] [facility] 8 [place] Nov, Rheumatoid arthr itis [place] involving multip [place] [address] positive rheumat oid factor M05.79 [facility] [place] Nov, Gastroesop hageal reflux [address]ICE [address] disease, esophag itis presence [place] not specified K2 1.9 [address] [facility] 8 [place] [place] Nov, Benign ess ential hypertension OFFICE [address] I10 and Chronic pain syndrome [place] G89.4 [address] [facility] [place] Nov, Severe per sistent asthma with [address]ICE [address] exacerbation J45 .51 [place] [address] [facility] [place] Nov, History of changes in urinary [address]ICE [address] output Z87.448 ; Dehydration [place] E86.0 ; Non-intr actable 620[address] vomiting with na usea, unspecified vomi ting type R11.2 and Swelli ng of lower extremity M79.89 ADMIN[facility]ATION [address] [facility] Nov, [place] [address] [facility] [place] Nov, [address]ICE [address] [place] [address] [facility] 8 [place] Nov, [address]ICE [address] [place] [address] [facility] [place] Oct, Chronic pa in syndrome G89.[address] [place] [address] [facility] [place] Oct, [address]ICE [address] [place] [address] [facility] [place] Oct, [address]ICE [address] [place] [address] [facility] [place] Oct, [address]ICE [address] [place] [address] [facility] [place] Oct, Medicare a nnual wellness [address]ICE [address] visit, subsequen t Z00.00 ; [place] Benign essential hypertension [address]7828 I10 ; Type 2 werner betes mellitus with pe ripheral neuropathy E11.4 2 ; Hyperlipidemia, unspecified hyperlipidemia t ype E78.5 ; Gastroesophageal reflux disease, esophag itis presence not specified K2 1.9 ; Moderate persist ent asthma without complica tion J45.40 ; Rheumatoid arthr itis involving multip le sites with positive rheumat oid factor M05.79 ; MOELLER (n onalcoholic steatohepatitis) K75.81 ; Insomnia, unspec ified G47.00 ; Gait abnormali ty R26.9 ; Age-related oste oporosis without current pathological fracture M81.0 ; Vitamin D deficiency E55.9 ; Spinal stenosis of lumb osacral region M48.07 ; Cervical spinal stenosis M48.02 ; Chronic pain syn drome G89.4 ; [facility] use of drug Z79.899 ; Alcohol screen ing Z13.89 ; Encounter for dr jimenez screening Z02.83 ; Colon c ancer screening Z12.11 ; Need for hepatitis C scre ening test Z11.59 ; Screeni ng for bladder cancer Z 12.6 ; Screening for ma lignant neoplasm of mic[address]le st Z12.39 ; Screening breast examination Z12.39 and Risk for falls Z91.81 [facility] 14 Oct, 2018 Chronic pa in syndrome G89.[address] [place] [address] [facility] 04 Oct, 2018 Closed non displaced fracture OFFICE [address] of [facility] of [place], [place] right foot with routine 86[address] healing, subsequ ent encounter S92.324D ; 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 2 ; Age-related oste oporosis without current pathological fracture M81.0 ; Vitamin D deficiency E55.9 and Rheumatoid arthr itis involving multip le sites with positive rheumat oid factor M05.79 [facility] Sep, OFFICE [address] [place] [address] [facility] 8 [facility] Sep, Nasal muco sitis (ulcerative) [address]ICE [address] J34.81 ; Benign essential [place] hypertension I10 ; Type 2 78177 diabetes mellitu s with peripheral neuro lorna E11.42 ; Hyperlipidemia , unspecified hyperlipidemia t ype E78.5 ; Gastroesophageal reflux disease, esophag itis presence not specified K2 1.9 ; Moderate persist ent asthma without complica tion J45.40 ; Rheumatoid arthr itis involving multip le sites with positive rheumat oid factor M05.79 ; MOELLER (n onalcoholic steatohepatitis) K75.81 ; Insomnia, unspec ified G47.00 ; Gait abnormali ty R26.9 ; Age-related oste oporosis without current pathological fracture M81.0 ; Vitamin D deficiency E55.9 ; Spinal stenosis of lumb osacral region M48.07 ; Cervical spinal stenosis M48.02 ; Chronic pain syn drome G89.4 and 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 [facility] [place] Sep, [address]ICE [address] [place] [address] [facility] [place] Sep, [address]ICE [address] [place] [address] [facility] [place] Sep, Left media l knee pain M25.562 [address] [place] [address] [facility] [place] Sep, [address]ICE [address] [place] [address] [facility] [place] Aug, Left anter ior knee pain [address]ICE [address] M25.562 [place] [address] [facility] [place] Aug, [address]ICE [address] [place] [address] [facility] [place] Aug, Left media l knee pain M25.562 [address] [place] [address] [facility] [place] Aug, [address]ICE [address] [place] [address] [facility] [place] Aug, Chronic pa in syndrome G89.4 [address] and Left medial knee pain [place] M25.[id number] [place] [address] [facility]ANS 8 [facility] [place] 17 Aug, 2018 [address] [place] [address] [facility] [place] 15 Aug, [address] [place] [address] [facility] [place] [place] 15 Aug, [address] [place] [address] [facility] 8 [facility] [place] 14 Aug, [address] [place] [address] [facility] 8 [place] [place] 14 Aug, [address] [place] [address] [facility] 8 [place] [place] 14 Aug, [address] [place] [address] [facility] [place] 14 Aug, [address] [place] [address] [employer] [address] 14 Aug, 2018 Acute pain of left [place] M25.562 [address] [facility] [place] 13 Aug, 2018 Acute pain of left knee [address] M25.562 [place] [address] [facility] 8 [place] 12 Aug, 2018 Left media l knee pain M25.562 [address] [place] [address] [facility] [address] 12 Aug, 2019 [place] [address] [facility] [place] Aug, [address]ICE [address] [place] [address] [facility] [place] Aug, Left media l knee pain M25.562 [address] [place] [address] [facility] [place] Aug, [address]ICE [address] [place] [address] [facility] [place] Aug, Left media l knee pain M25.562 [address] ; Benign essenti al [place] hypertension I10 ; Type 2 43784 diabetes mellitu s with peripheral neuro lorna E11.42 ; Hyperlipidemia , unspecified hyperlipidemia t ype E78.5 ; Gastroesophageal reflux disease, esophag itis presence not specified K2 1.9 ; Moderate persist ent asthma without complica tion J45.40 ; Rheumatoid arthr itis involving multip le sites with positive rheumat oid factor M05.79 ; MOELLER (n onalcoholic steatohepatitis) K75.81 ; Insomnia, unspec ified G47.00 ; Gait abnormali ty R26.9 ; Age-related oste oporosis without current pathological fracture M81.0 ; Vitamin D deficiency E55.9 ; Spinal stenosis of lumb osacral region M48.07 ; Cervical spinal stenosis M48.02 ; Chronic pain syn drome G89.4 and 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 [facility] [place] Aug, [address]ICE [address] [place] [address] [facility] [place] Aug, [address]ICE [address] [place] [address] [facility] [place] Aug, [address]ICE [address] [place] [address] [facility] [place] Aug, Lumbar rad iculopathy M54.16 [address] [place] [address] [facility] [place] Aug, [address]ICE [address] [place] [address] [facility] [place] Aug, 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 [address] and Chronic pain syndrome [place], [place] G89.4 [address] [facility] [place] Jul, [address]ICE [address] [place] [address] [facility] [place] Jul, [address]ICE [address] [place] [address] [facility] [place] Jul, Benign ess ential hypertension [address]ICE [address] I10 and Insomnia , unspecified [place] G47.00 [address] [facility] [place] Jul, [address]ICE [address] [place] [address] [facility] [place] Jul, [facility] use of drug Z79.899 [address] and Chronic pain syndrome [place] G89.4 [address] [employer] [address] [facility] 13 Jul, 2018 [place] [address] [facility] 8 [facility] Jul, Lumbar rad iculopathy M54.16 [address] [place] [address] [facility] 8 [facility] Jun, [address]ICE [address] [place] [address] [facility] 8 [facility] Jun, [facility] use of drug Z79.899 [address] and Back pain M5 4.9 [place] [address] [facility] Jun, Closed nondis placed fracture [address] of second metata rsal bone of [place], [place] right foot with routine [address] healing, subsequ ent encounter S92.324D ; 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 2 ; Age-related oste oporosis without current pathological fracture M81.0 ; Vitamin D deficiency E55.9 ; Rheumatoid arthritis involv ing multiple sites with posit familia rheumatoid facto r M05.79 and Spinal stenosis of lumbosacral taran on M48.07 [facility] Jun, [address]ICE [address] [place] [address] [facility] 8 [facility] Jun, [address]ICE [address] [place] [address] [facility] 8 [place] Jun, [facility] use of drug Z79.899 [address] and Chronic pain syndrome [place] G89.4 [address] [facility] [place] Jun, [address]ICE [address] [place] [address] [facility] 8 [place] Jun, [address] [place] [address] [facility] 8 [place] Jun, [address]ICE [address] [place] [address] [facility] [facility] [address] [facility] [address] Jun, Benign ess ential hypertension OFFICE [place], [place] [address] ORTHOPEDIC OFFICE [address] [facility] May, [place] [address] [facility] 8 [facility] May, [place] [address] [facility] 8 [facility] May, Injury of low back, initial [address] encounter S39.92 XA ; Closed [place], [address] sequela S92.901S ; Benign essential hypert ension I10 ; 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 ; Hyperlipidemia , unspecified hyperlipidemia t ype E78.5 ; Gastroesophageal reflux disease, esophag itis presence not specified K2 1.9 ; Spinal stenosis of lumb osacral region M48.07 ; Cervical spinal stenosis M48.02 ; Scoliosis of lum bosacral spine, unspecifi ed scoliosis type M41.9 ; Rhe umatoid arthritis involv ing multiple sites with posit familia rheumatoid facto r M05.79 ; Psoriatic arthri tis L40.50 ; MOELLER (nonalcohol ic steatohepatitis) K75.81 ; Insomnia, unspec ified G47.00 ; Gait abnormali ty R26.9 ; Moderate persist ent asthma without complica tion J45.40 ; Age-related oste oporosis without current pathological fracture M81.0 ; Vitamin D deficiency E55.9 ; Chronic pain syndrome G8 9.4 ; MCC use of drug Z79.899 and Influenza vaccin ation administered at current visit Z23 [address]OD[address] May, [place] [address] [facility] [address] [place] [address] May, Type 2 werner betes mellitus with OFFICE [place] peripheral neuro lorna E11.42 [address] [facility] May, [address]ICE [address] [place] [address] [facility] May, Type 2 werner betes mellitus with [address]ICE [address] peripheral neuro lorna E11.42 [place] [address] [address] May, Vitamin D defici ency E55.9 ; [place] Closed nondispla vonda fracture 63[address] of third metatar demetra bone of right foot, init ial encounter S92.334A and Lety sed nondisplaced fra cture of fourth metatarsa l bone of right foot, init ial encounter S92.344A [address] 05 May, 2018 Foot contusion S 90.30XA [place] [address] [facility] [address] 18 Apr, 2018 [place] [address] [facility] [place] 17 Apr, 2018 Chronic pa in syndrome G89.4 [address] [place] [address] [facility] [place] 16 Apr, 2018 [address] [place] [address] [facility] 8 [place] 12 Apr, 2018 [address] [place] [address] [facility] 8 [place] Apr, [address] [place] [address] [facility] 8 [place] Apr, [address] [place] [address] [facility] 8 [place] Apr, [address] [place] [address] [facility] 8 [place] Mar, [address] [place] [address] [facility] 8 [place] Mar, [address] [place] [address] [facility] 8 [place] Mar, [address] [place] [address] [facility] 8 [place] Mar, [address] [place] [address] [facility] 8 [place] Mar, [address] [place] [address] [facility] 8 [place] Mar, [address] [place] [address] [facility] 8 [place] Mar, Pain in le ft hip M25.552 [address] [place] [address] [facility] [place] Mar, Left hip p ain M25.552 ; Type [address] 2 diabetes melli tus with [place] peripheral neuro lorna E11.42 [address]11 ; Spinal stenosi s of lumbosacral taran on M48.07 ; Cervical spinal stenosis M48.02 ; Scolios is of lumbosacral spin e, unspecified scol iosis type M41.9 ; Chronic pain syndrome G89.4 and Long t erm use of drug Z79.899 [facility] [address] Mar, [place] [address] Mar, Thyroid nodule E04.1 [place], [place] [id number] [place] [address] [facility] 8 [place] Feb, Benign ess ential hypertension [address]ICE [address] I10 ; Type 2 werner paola [place] mellitus with pe ripheral [address] neuropathy E11.4 2 ; Hyperlipidemia, unspecified hyperlipidemia t ype E78.5 ; Gastroesophageal reflux disease, esophag itis presence not specified K2 1.9 ; Spinal stenosis of lumb osacral region M48.07 ; Cervical spinal stenosis M48.02 ; Scoliosis of lum bosacral spine, unspecifi ed scoliosis type M41.9 ; Rhe umatoid arthritis involv ing multiple sites with posit familia rheumatoid facto r M05.79 ; Psoriatic arthri tis L40.50 ; MOELLER (nonalcohol ic steatohepatitis) K75.81 ; Interstitial cys titis N30.10 ; Insomnia, unsp ecified G47.00 ; Gait ab normality R26.9 ; Cirrhosi s of liver without ascites, unspecified hepatic cirrhosi s type K74.60 ; Age-related os teoporosis without current pathological fracture M81.0 ; MCC use of drug Z79. 899 and Chronic pain syn drome G89.4 [facility] Feb, [address]ICE [address] [place] [address] [facility] OFFICE [facility] Feb, Essen tial (primary) [place] [address] hypertension I10 [facility] 8 [facility] Feb, [address]ICE [address] [place] [address] [facility] [address] [facility] Feb, Psoriatic arthritis L40.50 [place] [address] [facility] 8 [facility] Jan, Essential (primary) [address]ICE [address] hypertension I10 [place] [address] [facility] 8 [facility] Jan, Essential (primary) [address]ICE [address] hypertension I10 [place] [address] [facility] [address] [facility] Jan, [place] [address] [facility] [address] [facility] Jan, Psoriatic arthritis L40.50 [place] [address] [facility] 8 [facility] December, [address]ICE [address] [place] [address] [facility] 8 [facility] December, Psoriatic arthritis L40.50 ; [address] Rheumatoid arthr itis [place] [address] positive rheumat oid factor M05.79 ; Spinal stenosis of lumbosacral taran on M48.07 ; Cervical spinal stenosis M48.02 ; Scolios is of lumbosacral spin e, unspecified scol iosis type M41.9 ; S/P lami nectomy Z98.890 ; Closed nondisplaced fracture of meta tarsal bone of right foot, u nspecified metatarsal, sequ jimi S92.301S ; Metatarsal str ess fracture of right foot wi th nonunion M84.374K ; Gait abnormality R26.9 ; Hammer t oe of right foot M20.41 ; Ch ronic pain syndrome G89.4 a nd Type 2 diabetes mellitu s with peripheral neuro lorna E11.42 LPO-SPECIALTY TEAM [address] [facility] December, [place] [address] [facility] [place] December, [address] [place] [address] [facility] 8 [facility] [place] December, [address]ICE [address] [place] [address] [facility] 8 [facility] December, Thyroid no dule E04.1 ; Severe [address] persistent asthm a with acute [place] exacerbation J45 .51 ; [address] Bronchiectasis w ith acute exacerbation J47 .1 ; Type 2 diabetes mellitu s with peripheral neuro lorna E11.42 and Psoriatic ar thritis L40.50 LPO-SPECIALTY TEAM 173 [facility] December, [place] [address] LPO-SPECIALTY TEAM 173 [facility] December, [place] [address] [facility] [place] December, [address] [place] [address] [facility] 8 [facility] December, Type 2 werner betes mellitus with [address]ICE [address] peripheral neuro lorna E11.42 [place] [address] [facility] 8 [place] December, Thyroid no dule E04.1 ; [address] Bronchiectasis w ith acute [place] exacerbation J47 .1 and Severe [address] persistent asthm a with acute exacerbation J45 .51 [facility] 8 [facility] [place] December, [address]ICE [address] [place] [address] [facility] OFFICE [address] [place] [address] Nov, [place] [address] [facility] [place] Nov, [address] [place] [address] [facility] 8 [facility] [place] Nov, [address]ICE [address] [place] [address] [facility] 8 [place] Nov, [address]ICE [address] [place] [address] [facility] 8 [facility] [place] Nov, [address]ICE [address] [place] [address] [facility] 8 [place] Nov, [address]ICE [address] [place] [address] [facility] 8 [facility] Nov, [address]ICE [address] [place] [address] [facility] 8 [facility] Nov, Bronchiect asis with (acute) [address]ICE [address] exacerbation J47 .1 and Asthma [place] exacerbation J45 .901 [address] [facility] 8 [facility] Nov, Asthma exa cerbation J45.901 [address] [place] [address] [facility] 8 [facility] Nov, Psoriatic arthritis L40.50 [address] [place] [address] LPO-SPECIALTY TEAM [address] [facility] 30 Oct, 2017 Essential ( primary) [place] hypertension I10 [address] [facility] 8 [facility] Oct, [address]ICE [address] [place] [address] [facility] [address] [facility] [address] Oct, [place] [address] [facility] [address] [facility] Oct, [place] [address] LPO-SPECIALTY TEAM 173 [facility] 19 Oct, 2017 [place] [address] POD-[facility] 8 [facility] 14 Oct, 2017 [place] [address] [facility] [address] [facility] 13 Oct, 2017 Psoriatic arthritis L40.50 [place] [address] [facility] 8 [facility] Oct, [address] [place] [address] ORTHOPEDIC OFFICE [address] [facility] 12 Oct, 2017 Right hip pa in M25.551 and [place] Scoliosis of lum bosacral [address] spine, unspecifi ed scoliosis type M41.9 [facility] 8 [facility] Oct, Hip pain, right M25.551 [address] [place] [address] [facility] 8 [facility] Sep, [address]ICE [address] [place] [address] [facility] 8 [facility] Sep, Type 2 werner betes mellitus with [address]ICE [address] peripheral neuro lorna E11.42 [place] ; Essential (jacquelyn margy) [address] hypertension I10 ; Hyperlipidemia, unspecified hyperlipidemia t ype E78.5 ; Psoriatic arthri tis L40.50 ; Rheumatoid arthr itis involving multip le sites with positive rheumat oid factor M05.79 ; MOELLER (n onalcoholic steatohepatitis) K75.81 ; Hepatomegaly R16 .0 ; NAFLD (nonalcoholic fa tty liver disease) K76.0 ; Decreased renal function N 28.9 ; Stress fracture of meta tarsal bone of left foot wit h nonunion, subsequent encou nter M84.375K and Cervical spi nal stenosis M48.02 [facility] [address] [facility] Sep, Type 2 werner betes mellitus with [place] peripheral neuro lorna E11.42 [address] LPO-SPECIALTY TEAM [address] [facility] Sep, [place] [address] [facility] [address] [facility] Sep, Hyperkalemi a E87.5 [place] [address] [facility] 8 [facility] Sep, Hyperkalem ia E87.5 [address] [place] [address] [facility] 8 [facility] Sep, 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 [address] ascites, unspeci fied hepatic [place] cirrhosis type K 74.60 ; MOELLER 51146 (nonalcoholic steatohepatitis) K75.81 ; 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 ; Decreased issa l function N28.9 ; Essentia l (primary) hypertension I10 ; Hyperlipidemia, unspecified hyperlipidemia t ype E78.5 ; Psoriatic arthri tis L40.50 ; Rheumatoid arthr itis involving multip le sites with positive rheumat oid factor M05.79 ; Gastroe sophageal reflux disease, esophagitis presence not spe cified K21.9 ; Spinal stenosi s of lumbosacral taran on M48.07 ; Age-related oste oporosis without current pathological fracture M81.0 ; Insomnia, unspecified G47. 00 and Diarrhea of pres umed infectious origi n A09 [facility] 8 [facility] Aug, Bronchopne umonia J18.0 [address] [place] [address] POD-[facility]WS [address] [facility] Aug, Metatarsal st ress fracture of [address] right foot with nonunion [place] M84.374K [address] [facility] Aug, Bronchopneum onia J18.0 [place] [address] [address] Aug, Metatarsal stres s fracture of [place] right foot with nonunion [address] M84.374K [facility] 8 [facility] Aug, [address]ICE [address] [place] [address] [facility] 8 [facility] Aug, Asthma exa cerbation J45.901 [address] [place] [address] [facility] [address] [facility] Aug, [place] [address] [facility] 8 [place] Aug, Bronchopne umonia J18.0 [address] [place] [address] [facility] 8 [place] Aug, [address]ICE [address] [place] [address] [facility] 8 [place] Aug, Bronchopne umonia J18.0 and [address]ICE [address] Asthma exacerbat ion J45.901 [place] [address] [facility] 8 [place] Aug, [address] [place] [address] [facility] 8 [facility] [place] Aug, Bronchopne umonia J18.0 [address] [place] [address] [facility] 8 [place] Aug, Bronchopne umonia J18.0 ; [address] Severe asthma wi th [place] exacerbation, un specified [address] whether persiste nt J45.901 ; Unspecified stap hylococcus as the cause of dis eases classified elsew here B95.8 ; Other specified disorders of nose and nasal s inuses J34.89 ; Essential (jacquelyn margy) hypertension I10 ; MOELLER (nonalcoholic steatohepatitis) K75.81 ; Gastroesophageal reflux disease, esophag itis presence not specified K2 1.9 ; Hyperlipidemia, unspecified hyperlipidemia t ype E78.5 ; Insomnia, unspec ified G47.00 ; Rheumatoid art hritis involving multip le sites with positive rheumat oid factor M05.79 ; Fever c hills R50.9 and Age-related osteoporosis without current pathological fracture M81.0 LPO-SPECIALTY TEAM 173 [facility] Aug, Spinal sten osis of lumbar [place] region with neur ogenic 49566 claudication M48 .062 ORTHOPEDIC OFFICE [address] [facility] Aug, Spinal steno sis of lumbar [place] region with neur ogenic 10348 claudication M48 .062 [facility] [address] [facility] Aug, [place] [address] [facility] [address] [facility] Aug, Essential (primary) OFFICE [place] hypertension I10 ; [address] Gastroesophageal reflux disease, esophag itis presence not specified K2 1.9 ; Age-related oste oporosis without current pathological fracture M81.0 a nd Insomnia, unspecified G47. 00 ORTHOPEDIC OFFICE [address] [facility] Aug, Gait abnorma lity R26.9 and [place] Spinal stenosis of lumbar 70755 region, unspecif ied whether neurogenic dalila ication present M48.061 [facility] 8 [facility] Aug, Injury of coccyx, initial [address] encounter S39.92 XA ; [place] Psoriatic arthri tis L40.50 ; [address] Rheumatoid arthr itis involving multip le sites with positive rheumat oid factor M05.79 and Essen tial (primary) hypert ension I10 [facility] 8 [facility] Jul, [address]ICE [address] [place] [address] [facility] 8 [facility] Jul, [address]ICE [address] [place] [address] [facility] [address] [facility] Jul, Asthma exa cerbation J45.901 [place] [address] POD-[facility] 8 [facility] Jul, Metatarsal stres s fracture of [place] right foot with nonunion [address] M84.374K ; Rheum atoid arthritis involv ing multiple sites with posit familia rheumatoid facto r M05.79 ; Age-related oste oporosis without current pathological fracture M81.0 ; Type 2 diabetes mellitu s without complications E1 1.9 and Hammer toe of ri ght foot M20.41 [facility] 8 [facility] Jul, [address]ICE [address] [place] [address] [facility] 8 [facility] Jul, Rupture of left quadriceps [address]ICE [address] muscle, initial encounter [place], [place] S76.112A [place] [address] presumed infecti ous origin A09 [facility] 8 [facility] Jul, [address]ICE [address] [place] [address] LPO-SPECIALTY TEAM [address] [facility] Jul, [place] [address] [facility] [address] [facility] Jul, Diarrhea, u nspecified type [place] R19.7 [address] [facility] 8 [facility] Jul, Diarrhea, unspecified type [address] R19.7 and Injury of [place] quadriceps muscl e S76.109A 61[address] [facility] 8 [facility] Jun, [address]ICE [address] [place] [address] POD-[facility] 8 [facility] Jun, Metatarsal stres s fracture of [place] right foot with nonunion [address] M84.374K ; Cellu litis of right ankle L03. 115 ; Rheumatoid arthr itis involving multip le sites with positive rheumat oid factor M05.79 ; Age-rel ated osteoporosis wit hout current pathological fra cture M81.0 and Type 2 diabe marshall mellitus without complica tions E11.9 POD-[facility] 8 [facility] Jun, [place] [address] LPO-SPECIALTY TEAM [address] [facility] May, [place] [address] [facility] 8 [facility] May, Non-pressu re chronic ulcer of [address]ICE [address] other part of ri ght foot [place] limited to break down of skin 04103 L97.511 [facility] [address] [facility] May, Non-pressu re chronic ulcer of OFFICE [place] other part of ri t foot [address] limited to break down of skin L97.511 [facility] 8 [facility] May, Influenza vaccination [address] administered at current visit [place] Z23 ; Type 2 werner betes [address] mellitus with fo ot ulcer E11.621 ; Non-pr essure chronic ulcer of other part of right foot li mited to breakdown of ski n L97.511 and Closed nondispla vonda fracture of second metata rsal bone of right foot with nonunion, subsequent encou nter S92.324K POD-[facility]EM 8 [facility] May, [place] [address] [facility] [address] [facility] May, Gastroesop hageal reflux OFFICE [place] disease, esophag itis presence [address]12 not specified K2 1.9 POD-OP[facility]EM 8 [facility] May, [place] [address] [facility] 8 [facility] May, [address] [place] [address] [facility] 8 [facility] Apr, Pneumonia due to infectious [address] organism, unspec ified [place] laterality, unsp ecified part 14309 of lung J18.9 ; Asthma exacerbation J45 .901 and Oral candidiasis B37. 0 [facility] [address] [facility] [place], [place] [address] POD-[facility] 8 [facility] Apr, [place] [address] LPO-SPECIALTY TEAM [address] [facility] Apr, [place] [address] [facility] 8 [facility] Apr, Oral ramiro diasis B37.0 ; [address] Pneumonia due to infectious [place] organism, unspec ified [address] laterality, unsp ecified part of lung J18.9 an d Asthma exacerbation J45 .901 [facility] 8 [facility] Apr, [address]ICE [address] [place] [address] [facility] [address] [facility] Apr, Essential (primary) OFFICE [place] hypertension I10 [address] [facility] 8 [facility] Apr, [address]ICE [address] [place] [address] [facility] 8 [facility] Apr, [address]ICE [address] [place] [address] POD-[facility] 8 [facility] Apr, Closed nondispla vonda fracture [place] [address] right foot with routine healing, subsequ ent encounter S92.324D [address]OD[address] Apr, Age-related oste oporosis [place] without current pathological [address] fracture M81.0 ; Closed nondisplaced fra cture of second metatarsa l bone of right foot with routine healing, subsequ ent encounter S92.324D ; 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 2 and Rheumatoid arthr itis involving multip le sites with positive rheumat oid factor M05.79 [facility] 8 [facility] Apr, Psoriatic arthritis L40.50 ; [address] Rheumatoid arthr itis [place] multip [place] [address] positive rheumat oid factor M05.79 and 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 2 [facility] 8 [facility] Mar, Rheumatoid arthritis [address] involving multip le sites with [place] positive rheumat oid factor 90510 M05.79 ; Psoriat ic arthritis L40.50 and Chron ic pain syndrome G89.4 POD-[facility] 8 [facility] Mar, [place] [address] POD-OPHIEM 8 [facility] Mar, [place] [address] [facility] [address] [facility] Mar, [place] [address] [facility] 8 [facility] Mar, [address]ICE [address] [place] [address] [facility] 8 [facility] Mar, [address] [place] [address] [facility] 8 [facility] Mar, Interstiti al cystitis N30.[address] [place] [address] [facility] 8 [facility] Mar, [address]ICE [address] [place] [address] [facility] 8 [facility] Mar, Urinary fr equency R35.0 [address] [place] [address] [address] Mar, Age-related oste oporosis [place] without current pathological [address] fracture M81.0 ; Closed nondisplaced fra cture of second metatarsa l bone of right foot with routine healing, subsequ ent encounter S92.324D ; 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 2 and Rheumatoid arthr itis involving multip le sites with positive rheumat oid factor M05.79 [address] Mar, Age-related osteoporosis [place] without current pathological [address] fracture M81.0 ; Other osteoporosis wit h current pathological fra cture with routine healing, subsequent encounter M80.80 XD ; Dysuria R30.0 and Urinar y frequency R35.0 [facility] 8 [facility] Feb, Essential (primary) [address] hypertension I10 [place] [address] [facility] 8 [facility] Feb, Psoriatic arthritis L40.50 ; [address] Rheumatoid arthr itis [place] involving multip le sites with 694[address] positive rheumat oid factor M05.79 ; S/P lópez inectomy Z98.890 ; Closed nondisplaced fracture of meta tarsal bone of right foot, u nspecified metatarsal, sequ jimi S92.301S and Dysuria R30. 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 2 and Rheumatoid arthr itis involving multip le sites with positive rheumat oid factor M05.79 [facility] 8 [facility] Feb, [address] [place] [address] [facility] 8 [facility] Feb, [address] [place] [address] [facility] 8 [facility] Feb, [address] [place] [address] [facility] 8 [facility] Jan, Rheumatoid arthritis [address] involving multip le sites with [place] positive rheumat oid factor 16026 M05.79 [facility] 8 [facility] Jan, Foot fract ure, right, with [address]ICE [address] routine healing, subsequent [place] encounter S92.90 1D [id number] [facility] Jan, OFFICE [address] [place] [address] [address] Jan, Closed nondispla vonda fracture [place] [address] [place] with routine healing, subsequ ent encounter S92.324D ; 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 2 and Rheumatoid arthr itis involving multip le sites with positive rheumat oid factor M05.79 [facility] December, Rheumatoid arthritis [address]ICE [address] involving multip le sites with [place] positive rheumat oid factor 52592 M05.79 [facility] [facility] 8 [facility] December, Foot fract ure, right, with [address]ICE [address] delayed healing, subsequent [place] encounter S92.90 1G and [address]878 Rheumatoid arthr itis involving multip le sites with positive rheumat oid factor M05.79 [address] December, [place] [address] [facility] 8 [facility] December, Age-relate d osteoporosis [address] without current pathological [place], [place] fracture M81.0 a nd Other [address] osteoporosis wit h current pathological fra cture with routine healing, subsequent encounter M80.80 [address] December, Nondisplaced fra cture of [place] second metatarsa l bone, right [address] foot, initial en counter for closed fracture S92.324A ; Rheumatoid arthr itis involving multip le sites with positive rheumat oid factor M05.79 and 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 2 [facility] 8 [facility] December, [address] [place] [address] POD-OPHIEM 8 [facility] December, [place] [address] -[address] December, [place] [address] [facility] 8 [facility] December, Psoriatic arthritis L40.50 ; [address] Rheumatoid arthr itis [place] involving multip le sites with 27[address] positive rheumat oid factor M05.79 ; Chronic pain syndrome G89.4 ; Acute right ankle pain M25.5 71 ; H/O ankle fusion Z98 .1 ; Type 2 diabetes mellitu s E11.9 ; Hyperlipidemia, unspecified hyperlipidemia t ype E78.5 ; MOELLER (nonalcohol ic steatohepatitis) K75.81 ; Age-related oste oporosis without current pathological fracture M81.0 ; Type 2 diabetes mellitu s with peripheral neuro lorna E11.42 ; Atypical chest pain R07.89 and Essential (p rimary) hypertension I10 [facility] 8 [facility] December, [address]ICE [address] [place] [address] [facility] 8 [facility] December, Mild inter mittent asthma [address] without complica tion J45.20 [place] and Essential (p rimary) 57740 hypertension I10 [facility] 8 [facility] Nov, [address]ICE [address] [place] [address] [facility] 8 [facility] Oct, [address]ICE [address] [place] [address] [facility] 8 [facility] Oct, H/O ankle fusion Z98.1 [address] [place] [address] [facility] 8 [facility] Oct, Insomnia, unspecified G47.00 [address] [place] [address] [facility] 8 [facility] Oct, Acute righ t ankle pain [address] M25.571 ; H/O an kle fusion [place] Z98.1 ; Psoriati c arthritis 24851 L40.50 ; Rheumat oid arthritis involving multip le sites with positive rheumat oid factor M05.79 and 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 2 [facility] 8 [facility] Oct, [address]ICE [address] [place] [address] [facility] 8 [facility] Sep, Pneumonia of left lower lobe [address] due to infectiou s organism [place] J18.1 ; Type 2 d iabetes 65598 mellitus with pe ripheral neuropathy E11.4 2 ; Psoriatic arthritis L40.50 ; Rheumatoid arthritis involv ing multiple sites with posit familia rheumatoid facto r M05.79 ; Chronic pain syn drome G89.4 and Essential (p rimary) hypertension I10 [facility] 8 [place] Aug, Type 2 werner betes mellitus [address] without complica tions E11.9 ; [place] Psoriatic arthri tis L40.50 ; [address] Rheumatoid arthr itis involving multip le sites with positive rheumat oid factor M05.79 ; Chronic pain syndrome G89.4 ; Essential (primary) hypert ension I10 ; MOELLER (nonalcohol ic steatohepatitis) K75.81 ; Hyperlipidemia, unspecified hyperlipidemia t ype E78.5 ; Age-related oste oporosis without current pathological fracture M81.0 ; Mild intermittent ast hma without complication J45 .20 and Alice albicans infection B37.9 [facility] 8 [facility] Aug, [address]ICE [address] [place] [address] [facility] 8 [facility] Aug, [address]ICE [address] [place] [address] [facility] 8 [facility] Aug, Sea sylvain ss, initial [address]ICE [address] encounter T75.3X [place] [address] [facility] 8 [facility] Aug, Muscle spa sm M62.838 ; MOELLER [address]ICE [address] (nonalcoholic [place] steatohepatitis) K75.81 ; [address] Hyperlipidemia, unspecified hyperlipidemia t ype E78.5 ; Type 2 diabetes mellitus without complica tions E11.9 ; Essential (prima ry) hypertension I10 ; Psoriatic arthritis L40.50 and Age-related oste oporosis without current pathological fracture M81.0 [facility] 8 [facility] Jul, [address]ICE [address] [place] [address] [facility] 8 [facility] [place] Jul, Type 2 werner betes mellitus with [address]ICE [address] peripheral neuro lorna E11.42 [place] and Rheumatoid a rthritis [address]14[address] involving multip le sites with positive rheumat oid factor M05.79 [facility] 8 [facility] Jul, [address]ICE [address] [place] [address] [facility] 8 [facility] Jul, Type 2 werner betes mellitus with [address]ICE [address] peripheral neuro lorna E11.42 [place] [address] [facility] Jul, Type 2 werner betes mellitus with OFFICE [place] peripheral neuro lorna E11.42 [address] [facility] 8 [facility] Jul, Psoriatic arthritis L40.50 ; [address] Gastroesophageal reflux [place] disease, esophag itis presence [address] not specified K2 1.9 ; Rheumatoid arthr itis involving multip le sites with positive rheumat oid factor M05.79 ; Chronic pain syndrome G89.4 ; S/P laminectomy Z98. 890 ; Type 2 diabetes mellitu s with peripheral neuro lorna E11.42 ; Essential (jacquelyn margy) hypertension I10 ; Hyperlipidemia, unspecified hyperlipidemia t ype E78.5 ; MOELLER (nonalcohol ic steatohepatitis) K75.81 ; Mild intermitten t asthma without complica tion J45.20 ; Localized edema R60.0 ; Age-related oste oporosis without current pathological fracture M81.0 a nd Insomnia, unspecified G47. 00 [facility] 8 [facility] Jul, [address]ICE [address] [place] [address] [facility] 8 [facility] Jun, [address]ICE [address] [place] [address] [facility] 8 [facility] Jun, [address]ICE [address] [place] [address] [facility] [address] [facility] Jun, [place] [address] [facility] 8 [facility] Jun, [address]ICE [address] [place] [address] [facility] 8 [facility] Jun, Type 2 werner betes mellitus [address] without complica tions E11.9 ; [place] Psoriatic arthri tis L40.50 ; [address] Chronic pain syn drome G89.4 ; Hyperlipidemia, unspecified hyperlipidemia t ype E78.5 ; Essential (prima ry) hypertension I10 ; Unspecified asth ma, uncomplicated J4 5.909 ; Localized edema R60.0 ; Insomnia, unspec ified G47.00 ; Age-related os teoporosis without current pathological fracture M81.0 a nd Tinea pedis B35.3 [facility] 8 [facility] May, [address] [place] [address] May, 2016 [place] [address] IMMUNIZATIONS Vaccine Route Administration Date Status Influenza FLUBLOK QUAD IM Intramuscular Jun 13, 2020 Administ ered NONSTATE zzInfluenza FLUARIX QUAD IM Intramuscular Jun 19, 2017 Admini stered NONSTATE 3yrs and up Influenza FLUBLOK QUAD IM Intramuscular Jun 19, 2018 Administ ered NONSTATE Influenza FLUBLOK QUAD IM Intramuscular May 31, 2019 Administ ered NONSTATE Hep A adult nonstate IM IM Intramuscular Sep 07, 2019 Adminis tered [address] Influenza HISTORY Unknown Jun 13, 2015 Administered TD HISTORY Unknown December 12, 2011 Administered solu-medrol 125MG IM Intramuscular December 18, 2017 Administered solu-medrol 125MG IM Intramuscular Sep 11, 2017 Administered Pneumococcal Hx-UNSPECIFIED Unknown December 12, 2011 Admi nistered Depo-medrol 40 OTH Other/Miscellaneous May 03, 2020 Administ ered Depo-medrol 40 OTH Other/Miscellaneous February 09, 2020 Administ ered Hep A adult nonstate IM IM Intramuscular March 17, 2020 Adminis tered [address]245 SOCIAL HISTORY Qualifiers Date Never Smoker REASON FOR REFERRAL FUNCTIONAL STATUS PLAN OF CARE Activity Details Future Test NM Bone Scan 3-Phase (68060) 51861607 Future Test PREV: DIABETIC FOOT EXAM 202 61370 Future Test MR Joint Lower Ext R w/o (73 721) 37288486 Future Test CT Lower Extremity w/o L (73 700) 21731456 Future Test X Tibula/Fibula R 2V 4723211 4 Future Test X Ankle R 3V 72308301 Future Test X Foot R 3V 58957134 Future Test X Ankle R 2V 98032865 Future Test MG Mammo Screening 52364503 Future Test X Knee L 4V 33178569 Future Test MR Lumbar Spine w/o (06554) 39771205 Future Test X Foot R 3V 57049478 Future Test US Neck/Thyroid 67708228 Future Test US Neck/Thyroid 95085925 Future Test X Lumbar Spine 4V 87576515 Future Test POD Foot, R 3V (POD4) 591599 05 Future Test X Hip L 2V 57846062 Future Test US Neck/Thyroid 21862964 Future Test X Pelvis 72969184 Future Test X Scoliosis AP standing 2017 0312 Future Test X Foot R 3V 58568244 Future Test INFLUENZA A/B 20846841 Future Test X Lumbar Spine 2-3V 20170828 Future Test X Sacrum/Coccyx 20170828 Future Test CULTURE STOOL 20170731 Future Test FECAL LACTOFERRIN 20170731 Future Test MR Lower Ext R w/o (48245) 2 7448190 Future Test DEXA: Hip and Spine 15412753 Future Test CALCIUM 14442640 Future Test SED RATE 71643553 Future Test MICROALBUMIN/CREAT RATIO (AC R) 20160919 Future Test COMPMET 20160919 Future Test CBC WITH AUTO DIFF 20160919 Future Test HEMOGLOBIN A1C 20160919 Future Test LIPID W/ CALCULATED LDL 2016 125 Future Test LIVER FUNCTION TESTS 20160826 6 VITAL SIGNS MEDICATIONS Medication Instructions Dosage Frequency Start End Duration Statu s Date Date OneTouch UltraSoft as directed 10 A ctive Lanc - Jul, 2019 Humira Pen 40 mg/0.8 subcutaneously as directed Active mL every other week PREMARIN VAGINAL intravaginally Active 0.625 mg/g once a day (in the evening) ALBUTEROL-IPRATROPIUM by nebulizer 4 3 mL 6h Active BROMIDE 2.5 mg-0.5 times a day mg/3 ml Atorvastatin Calcium orally once a 1 tab(s) 24h Active 40 MG day Leflunomide 20 mg Orally Once a 1 tablet 24h 26 Active day Sep, 2019 Ipratropium-Albuterol Inhalation 3 ml 6h Active 0.5-2.5 (3) MG/3ML every 6 hrs CALCIUM 500+D 500 chewed 2 times 1 tab(s) 12h Active mg-400 intl units a day amLODIPine Besylate orally twice 1/2 tab(s) Active 10 mg daily OneTouch Ultra 2 TEST STRIPS as directed 6h 20 Active four times a Aug, Lantus SoloStar 100 Subcutaneous 42 units Active UNIT/ML increase by 2 units until morning blood sugars are less than 150 , 100 units max daily dose Loratadine 10 mg orally once a 1 tab(s) 24h Active day predniSONE 10 mg orally as 4 tabs for 3 27 12 days Active directed days, then 3 May, tabs for 3 2019 days, then 2 tabs for 3 days, then 1 tab for 3 days HumaLOG KwikPen 100 use 10 units Active units/ml Ondansetron HCl 8 mg orally 3 times 1 tab(s) Active a day as needed for nausea Lisinopril 10 mg orally once a 1 tab(s) 24h Active day methylPREDNISolone 4 Orally daily 1 tablet 24h 30 da y(s) Active MG with food or milk in the morning Folic Acid 1 mg orally once a 1 tab(s) 24h A ctive day Zolpidem Tartrate 10 orally once a 1 tab(s) 30 d ays Active mg day (at bedtime) as needed for sleep Azithromycin 500 MG Orally Once a 1 tablet 24h 16 10 da y(s) Active day Jun, 2020 oxyCODONE HCl 15 mg Orally every 4 1 tablet 30 30 d ays Active hrs prn for Nov, pain MAX 4 08/26 2019 tabs/24hours hydrOXYzine Pamoate orally q 6 1 cap(s) Active pamoate 50 mg hours, prn Metoprolol Succinate orally once a 1 tab(s) 24h Active ER 50 mg day predniSONE 10 mg orally as 4 tabs for 3 12 12 days Active directed days, then 3 Nov, tabs for 3 2020 days, then 2 tabs for 3 days, then 1 tab for 3 days BD Pen Needle Short as directed Active U/F 31G X 8 MM Arava 20 mg orally once per 1 tablet Act familia day Singulair 10 mg orally once a 1 tab(s) 24h A ctive day NexIUM 40 mg orally BID 1 cap(s) 12h Active Acyclovir 5 % Externally Six 1 Act familia times a day to application lesion inside to affected nose area -ONE TOUCH ULTRA as directed 12h Act familia GLUCOSE MONITOR Januvia 100 MG Orally Once a as directed 24h Active day hydroCHLOROthiazide orally once a 1 cap(s) 24h Active 12.5 mg day Benzonatate 200 mg orally q8h prn 1 cap(s) 22 5 day (s) Active for cough May, 2020 Diphenoxylate-Atropin Orally q6h prn 1 tab 20 Active e 2.5-0.025 MG for diarrhea Oct, 2019 Nystatin 762743 orally swish 5 mL 18 7 day(s) Ac tive units/ml and spit PC and (capful) Mar, tiZANidine HCl 2 mg orally every 8 2 tab(s) Active hours prn for muscle pain Breo Ellipta 200 inhaled once a 1 puff(s) 24h Active mcg-25 mcg/inh day PROCEDURES Procedure Date Ordered Result Body Site zzPREV: DIABETES foot exam 2019-01-04 N/A SBIRT screening 2020-03-17 N/A Cardio:Sestimibi,Adenosine/Lexiscan 2017-04-04 N/A (CPT-42523,[id number]) CSA-Signed 2017-12-18 N/A Pulmonary Function Test 2017-11-25 N/A Fall Risk Assessment Completed 2018-11-09 N/A SBIRT screening 2018-11-09 neg zzPREV: eye exam 2018-12-07 N/A Cardio:Echo,TTE,Age 18+,transTHORACIC 2013-09-13 N/A (CPT-[id number]) COLONOSCOPY (in procedures) 2018-12-15 repeat 10 years Cardio:Sestimibi,Exercise (CPT-69388,07228) 2013-10-05 N/A CSA-Pill count 2018-12-24 N/A zzPREV: eye exam 2014-03-17 N/A CSA-Signed 2018-12-24 N/A CSA-Signed 2016-12-31 N/A RESULTS Name Result Date Reference Range BASEMET 2020-06-13 GLUC 281 74-106 BUN 16 7-25 CREATS 0.93 0.60-1.20 EGFR >60 >=60 NA 140 136-144 K+ 4.0 3.5-5.1 CL 98 98-110 CO2 32 22-32 CA 8.9 8.6-10.3 CBC WITH AUTO DIFF 2020-06-13 WBC 10.8 4.0-12.0 RBC 4.1 4.5-6.0 HGB 12.2 12.5-16.0 HCT 39.1 37.0-47.0 MCV 96 78-100 MCH 29.8 27.0-32.0 MCHC 31.2 32.0-36.0 RDW 13.9 11.0-14.0 PLT 333 140-440 MPV 10.1 7.4-11.0 ANC# 6.6 1.4-7.9 IG# 0.07 0.00-0.10 LY# 2.45 1.50-4.00 MO# 1.02 0.20-0.80 EO# 0.55 0.00-0.70 BA# 0.13 0.00-0.20 NE% 60.9 IG% 0.6 0.0-1.0 LY% 22.7 MO% 9.5 EO% 5.1 BA% 1.2 LIVER FUNCTION TESTS 2020-06-13 TP 6.3 6.0-8.3 ALB 3.8 3.4-5.0 TBIL 0.6 0.3-1.2 DBIL 0.2 0.0-0.2 ALKP 101 34-104 AST 15 13-39 ALT 26 7-52 LIPID W/ CALCULATED LDL 2020-06-13 CHOL 164 0-200 TRIG 194 0-200 HDL 56 23-92 LDL CALC 69 5-99 CHOL/HDL 2.9 0.0-4.5 MAGNESIUM 2020-06-13 MG 1.4 1.8-2.7 BASEMET 2020-03-17 GLUC 83 74-106 BUN 22 7-25 CREATS 1.15 0.60-1.20 EGFR 47 >=60 NA 143 136-144 K+ 4.0 3.5-5.1 CL 101 98-110 CO2 28 22-32 CA 10.0 8.6-10.3 CBC WITH AUTO DIFF 2020-03-17 WBC 11.2 4.0-12.0 RBC 4.8 4.5-6.0 HGB 13.8 12.5-16.0 HCT 43.6 37.0-47.0 MCV 91 78-100 MCH 28.8 27.0-32.0 MCHC 31.7 32.0-36.0 RDW 14.5 11.0-14.0 PLT 367 140-440 MPV 11.6 7.4-11.0 ANC# 5.2 1.4-7.9 IG# 0.04 0.00-0.10 LY# 4.13 1.50-4.00 MO# 1.13 0.20-0.80 EO# 0.57 0.00-0.70 BA# 0.16 0.00-0.20 NE% 46.2 IG% 0.4 0.0-1.0 LY% 36.8 MO% 10.1 EO% 5.1 BA% 1.4 HEMOGLOBIN A1C 2020-03-17 HGBA1C 8.5 4.0-6.0 CMG 197 LDL (DIRECT) 2020-03-17 LDL 142 5-99 LIVER FUNCTION TESTS 2020-03-17 TP 7.2 6.0-8.3 ALB 4.3 3.4-5.0 TBIL 0.6 0.3-1.2 DBIL 0.2 0.0-0.2 ALKP 81 34-104 AST 21 13-39 ALT 22 7-52 LIPID W/ CALCULATED LDL 2020-03-17 CHOL 301 0-200 TRIG 719 0-200 HDL 52 23-92 CHOL/HDL 5.8 0.0-4.5 MAGNESIUM 2020-03-17 MG 1.7 1.8-2.7 URINE TOX SCREEN 2020-03-17 AMP NEG NEG BARBS NEG NEG BENZO NEG NEG BUPRENORPHINE NEG NEG RULA NEG NEG METHAMP NEG NEG MTD NEG NEG OPIAT POS NEG OXY POS NEG PCP NEG NEG THC NEG NEG TAD NEG NEG VITAMIN D (25-HYDROXY) TOTAL 2020-03-17 VITD_T 39.00 30.00-100.00 FENTANYL URINE SCREEN 2020-03-17 FENTU Negative NEG PHQ-9 2020-03-17 Score 0 NM Bone Scan 3-Phase (56766) 2020-03-14 See Below For Report PREV: DIABETIC FOOT EXAM 2020-02-09 CT Lower Extremity w/o L 2020-02-07 (25222) See Below For Report MR Joint Lower Ext R w/o 2020-02-07 (39525) See Below For Report X Tibula/Fibula R 2V 2020-01-06 See Below For Report X Ankle R 3V 2020-01-06 See Below For Report X Foot R 3V 2019-10-27 Image Accessible SENSITIVITY ORGANISM 1 2019-10-19 Ampicillin >=32 Ampicillin/Sulbactam 16 Piperacillin/Tazobactam <=4 Cefazolin <=4 Ceftazidime <=1 Ceftriaxone <=1 Cefepime <=1 Doripenem <=0.12 Ertapenem <=0.5 Amikacin <=2 Gentamicin <=1 Tobramycin <=1 Ciprofloxacin 1 Levofloxacin 4 Nitrofurantoin <=16 Trimethoprim/Sulfa <=20 UA DIPSTICK ONLY-DIAGNOSTIC 2019-10-19 Color yellow Clarity clear Specific Woodrow 1.030 Glucose. neg Bilirubin small Ketones trace Blood neg PH 5.0 Protein trace Urobilinogen 0.2 Nitrite neg Leukocytes small UA-COLONY COUNT ONLY 2019-10-19 Isolate 1 Escherichia Coli^>100,000 cfu/mL BASEMET 2019-09-07 GLUC 248 74-106 BUN 16 7-25 CREATS 0.89 0.60-1.20 EGFR >60 >=60 NA 141 136-144 K+ 4.0 3.5-5.1 CL 104 98-110 CO2 28 22-32 CA 9.4 8.6-10.3 CBC WITH AUTO DIFF 2019-09-07 WBC 7.5 4.0-12.0 RBC 4.7 4.5-6.0 HGB 12.9 12.5-16.0 HCT 41.4 37.0-47.0 MCV 88 78-100 MCH 27.5 27.0-32.0 MCHC 31.2 32.0-36.0 RDW 15.4 11.0-14.0 PLT 317 140-440 MPV 11.2 7.4-11.0 ANC# 2.8 1.4-7.9 IG# 0.02 0.00-0.10 LY# 3.52 1.50-4.00 MO# 0.66 0.20-0.80 EO# 0.38 0.00-0.70 BA# 0.13 0.00-0.20 NE% 37.2 IG% 0.3 0.0-1.0 LY% 46.9 MO% 8.8 EO% 5.1 BA% 1.7 HEMOGLOBIN A1C 2019-09-07 HGBA1C 7.8 4.0-6.0 CMG 177 LIVER FUNCTION TESTS 2019-09-07 TP 6.5 6.0-8.3 ALB 3.8 3.4-5.0 TBIL 0.5 0.3-1.2 DBIL 0.1 0.0-0.2 ALKP 67 34-104 AST 12 13-39 ALT 14 7-52 LIPID W/ CALCULATED LDL 2019-09-07 CHOL 241 0-200 TRIG 263 0-200 HDL 60 23-92 LDL CALC 128 5-99 CHOL/HDL 4.0 0.0-4.5 MAGNESIUM 2019-09-07 MG 1.7 1.8-2.7 CBC WITH AUTO DIFF 2019-06-18 WBC 11.8 4.0-12.0 RBC 4.2 4.5-6.0 HGB 11.5 12.5-16.0 HCT 37.2 37.0-47.0 MCV 88 78-100 MCH 27.3 27.0-32.0 MCHC 30.9 32.0-36.0 RDW 14.6 11.0-14.0 PLT 337 140-440 MPV 10.7 7.4-11.0 ANC# 8.8 1.4-7.9 IG# 0.04 0.00-0.10 LY# 1.77 1.50-4.00 MO# 0.64 0.20-0.80 EO# 0.39 0.00-0.70 BA# 0.10 0.00-0.20 NE% 75.0 IG% 0.3 0.0-1.0 LY% 15.1 MO% 5.4 EO% 3.3 BA% 0.9 COMPMET 2019-06-18 GLUC 239 74-106 BUN 17 7-25 CREATS 0.81 0.60-1.20 EGFR >60 >=60 NA 141 136-144 K+ 4.3 3.5-5.1 CL 109 98-110 CO2 27 22-32 CA 8.8 8.6-10.3 TP 6.1 6.0-8.3 ALB 3.7 3.4-5.0 TBIL 0.5 0.3-1.2 DBIL 0.1 0.0-0.2 ALKP 84 34-104 AST 21 13-39 ALT 19 7-52 HEMOGLOBIN A1C 2019-06-18 HGBA1C 7.1 4.0-6.0 CMG 157 LIPID W/ CALCULATED LDL 2019-06-18 CHOL 193 0-200 TRIG 175 0-200 HDL 52 23-92 LDL CALC 106 5-99 CHOL/HDL 3.7 0.0-4.5 VITAMIN D (25-HYDROXY) TOTAL 2019-06-18 VITD_T 31.31 30.00-100.00 EKG #1-IN OFFICE TODAY 2019-05-13 X Knee L 2V 2019-05-03 Image Accessible X Knee L 2V 2019-04-22 Image Accessible EKG #1-IN OFFICE TODAY 2019-03-16 X Ankle R 2V 2019-02-22 See Below For Report CBC WITH AUTO DIFF 2019-02-05 WBC 12.1 4.0-12.0 RBC 4.9 4.5-6.0 HGB 13.4 12.5-16.0 HCT 41.5 37.0-47.0 MCV 86 78-100 MCH 27.6 27.0-32.0 MCHC 32.3 32.0-36.0 RDW 14.6 11.0-14.0 PLT 417 140-440 MPV 10.7 7.4-11.0 ANC# 8.5 1.4-7.9 IG# 0.1 0.0-0.1 LY# 2.5 1.5-4.0 MO# 0.8 0.2-0.8 EO# 0.2 0.0-0.7 BA# 0.0 0.0-0.2 NE% 70.4 IG% 0.7 0.0-1.0 LY% 20.2 MO% 6.8 EO% 1.6 BA% 0.3 COMPMET 2019-02-05 GLUC 91 74-106 BUN 29 7-25 CREATS 0.95 0.60-1.20 EGFR 59 >=60 NA 141 136-144 K+ 4.8 3.5-5.1 CL 103 98-110 CO2 29 22-32 CA 9.3 8.6-10.3 TP 6.5 6.0-8.3 ALB 4.0 3.4-5.0 TBIL 0.8 0.3-1.2 DBIL 0.2 0.0-0.2 ALKP 69 34-104 AST 14 13-39 ALT 23 7-52 HEMOGLOBIN A1C 2019-02-05 HGBA1C 8.9 4.0-6.0 CMG 209 LIPID W/ CALCULATED LDL 2019-02-05 CHOL 212 0-200 TRIG 169 0-200 HDL 70 23-92 LDL CALC 108 5-99 CHOL/HDL 3.0 0.0-4.5 VITAMIN D (25-HYDROXY) TOTAL 2019-02-05 VITD_T 31.58 30.00-100.00 URINE TOX SCREEN 2018-12-24 AMP NEG NEG BARBS NEG NEG BENZO NEG NEG BUPRENORPHINE NEG NEG RULA NEG NEG METHAMP NEG NEG MTD NEG NEG OPIAT POS NEG OXY NEG NEG PCP NEG NEG THC NEG NEG TAD NEG NEG FENTANYL URINE SCREEN 2018-12-24 FENTU Negative NEG UA-DIP PLUS MICRO W/REFLEX 2018-11-28 COL Dark Yellow YELLOW CLARITY Turbid CLEAR SG >=1.030 1.001-1.035 GLU. Negative NEGATIVE ELSI Moderate NEGATIVE KET 15 mg/dL NEGATIVE BLD Moderate NEGATIVE PH 5.0 5.0-8.0 PROT 100 mg/dL NEGATIVE UROBILINOGEN 1.0 E.U./dL 0.2-1.0 NIT Negative NEGATIVE NEEL Small NEGATIVE MUC NEGATIVE NEGATIVE BACT 4+ NEGATIVE KARAN NEG NEG EPI NEG NEG RBCS >50 NEG WBCS TNTC NEGATIVE CAST NEG NEG AMORPH NEG NEG UA-COLONY COUNT ONLY 2018-11-28 Isolate 1 Escherichia Coli^>100,000 cfu/mL SENSITIVITY ORGANISM 1 2018-11-28 Ampicillin 8 Ampicillin/Sulbactam 4 Piperacillin/Tazobactam <=4 Cefazolin <=4 Ceftazidime <=1 Ceftriaxone <=1 Cefepime <=1 Doripenem <=0.12 Ertapenem <=0.5 Amikacin <=2 Gentamicin <=1 Tobramycin <=1 Ciprofloxacin <=0.25 Levofloxacin <=0.12 Nitrofurantoin 128 Trimethoprim/Sulfa <=20 MG Mammo Screening 2018-12-23 See Below For Report CBC WITH AUTO DIFF 2018-11-09 WBC 8.0 4.0-12.0 RBC 5.1 4.5-6.0 HGB 14.0 12.5-16.0 HCT 43.4 37.0-47.0 MCV 85 78-100 MCH 27.6 27.0-32.0 MCHC 32.3 32.0-36.0 RDW 13.9 11.0-14.0 PLT 352 140-440 MPV 10.5 7.4-11.0 ANC# 2.9 1.4-7.9 IG# 0.0 0.0-0.1 LY# 4.1 1.5-4.0 MO# 0.7 0.2-0.8 EO# 0.3 0.0-0.7 BA# 0.1 0.0-0.2 NE% 35.8 IG% 0.1 0.0-1.0 LY% 50.9 MO% 8.2 EO% 3.9 BA% 1.2 COMPMET 2018-11-09 GLUC 211 74-106 BUN 14 7-25 CREATS 0.90 0.60-1.20 EGFR >60 >=60 NA 142 136-144 K+ 4.6 3.5-5.1 CL 101 98-110 CO2 30 22-32 CA 9.5 8.6-10.3 TP 6.7 6.0-8.3 ALB 4.1 3.4-5.0 TBIL 0.7 0.3-1.2 DBIL 0.2 0.0-0.2 ALKP 87 34-104 AST 16 13-39 ALT 24 7-52 HEMOGLOBIN A1C 2018-11-09 HGBA1C 9.5 4.0-6.0 CMG 226 LIPID W/ CALCULATED LDL 2018-11-09 CHOL 246 0-200 TRIG 269 0-200 HDL 67 23-92 LDL CALC 125 5-99 CHOL/HDL 3.7 0.0-4.5 TSH 2018-11-09 TSH 1.397 0.360-4.800 URINE TOX SCREEN 2018-11-09 AMP NEG NEG BARBS NEG NEG BENZO NEG NEG BUPRENORPHINE NEG NEG RULA NEG NEG METHAMP NEG NEG MTD NEG NEG OPIAT POS NEG OXY NEG NEG PCP NEG NEG THC NEG NEG TAD NEG NEG VITAMIN D (25-HYDROXY) TOTAL 2018-11-09 VITD_T 37.67 30.00-100.00 HEP-C, AB Screen (G0472) 2018-11-09 Hep C Virus Ab <0.1 0.0-0.9 FENTANYL URINE SCREEN 2018-11-09 FENTU Negative NEG POD Foot, R 3V (POD4) 2018-10-26 NM Bone Scan 3-Phase ([id number]) 2018-09-15 See Below For Report X Knee L 4V 2018-09-04 See Below For Report CBC WITH AUTO DIFF 2018-09-04 WBC 12.7 4.0-12.0 RBC 5.0 4.5-6.0 HGB 13.8 12.5-16.0 HCT 43.0 37.0-47.0 MCV 86 78-100 MCH 27.5 27.0-32.0 MCHC 32.1 32.0-36.0 RDW 13.2 11.0-14.0 PLT 399 140-440 MPV 10.4 7.4-11.0 ANC# 9.2 1.4-7.9 IG# 0.0 0.0-0.1 LY# 2.6 1.5-4.0 MO# 0.8 0.2-0.8 EO# 0.1 0.0-0.7 BA# 0.0 0.0-0.2 NE% 72.4 IG% 0.2 0.0-1.0 LY% 20.2 MO% 6.6 EO% 0.5 BA% 0.3 COMPMET 2018-09-04 GLUC 311 74-106 BUN 26 7-25 CREATS 1.20 0.60-1.20 EGFR 45 >=60 NA 135 136-144 K+ 5.5 3.5-5.1 CL 97 98-110 CO2 29 22-32 CA 10.0 8.6-10.3 TP 7.0 6.0-8.3 ALB 4.2 3.4-5.0 TBIL 0.5 0.3-1.2 DBIL 0.1 0.0-0.2 ALKP 95 34-104 AST 21 13-39 ALT 27 7-52 HEMOGLOBIN A1C 2018-09-04 HGBA1C 10.1 4.0-6.0 CMG 243 LIPID W/ CALCULATED LDL 2018-09-04 CHOL 243 0-200 TRIG 257 0-200 HDL 68 23-92 LDL CALC 124 5-99 CHOL/HDL 3.6 0.0-4.5 MR Lumbar Spine w/o ([id number]) 2018-08-03 See Below For Report X Foot R 3V 2018-07-22 Image Accessible US Neck/Thyroid 2018-07-13 See Below For Report X Lumbar Spine 4V 2018-06-22 See Below For Report VITAMIN D (25-HYDROXY) TOTAL 2018-06-08 VITD_T 35.01 30.00-100.00 POD Foot, R 3V (POD4) 2018-05-29 X Hip L 2V 2018-04-22 See Below For Report CBC WITH AUTO DIFF 2018-03-23 WBC 8.0 4.0-12.0 RBC 5.3 4.5-6.0 HGB 14.5 12.5-16.0 HCT 45.9 37.0-47.0 MCV 86 78-100 MCH 27.3 27.0-32.0 MCHC 31.6 32.0-36.0 RDW 14.4 11.0-14.0 PLT 320 140-440 MPV 11.4 7.4-11.0 ANC# 5.2 1.4-7.9 IG# 0.0 0.0-0.1 LY# 1.9 1.5-4.0 MO# 0.6 0.2-0.8 EO# 0.2 0.0-0.7 BA# 0.1 0.0-0.2 NE% 65.0 IG% 0.1 0.0-1.0 LY% 24.4 MO% 7.2 EO% 2.0 BA% 1.4 COMPMET 2018-03-23 GLUC 343 74-106 BUN 13 7-25 CREATS 0.95 0.60-1.20 EGFR 59 >=60 NA 138 136-144 K+ 4.9 3.5-5.1 CL 102 98-108 CO2 27 22-32 CA 9.6 8.6-10.3 TP 5.8 6.0-8.3 ALB 4.0 3.4-5.0 TBIL 0.7 0.3-1.2 DBIL 0.2 0.0-0.2 ALKP 99 34-104 AST 29 13-39 ALT 36 7-52 CRP-INFLAM 2018-03-23 CRP 0.5 0.0-0.9 HEMOGLOBIN A1C 2018-03-23 HGBA1C 10.7 4.0-6.0 CMG 260 LIPID W/ CALCULATED LDL 2018-03-23 CHOL 261 0-200 TRIG 331 0-200 HDL 63 23-92 LDL CALC 132 5-99 CHOL/HDL 4.1 0.0-4.5 MAGNESIUM 2018-03-23 MG 1.6 1.9-2.7 SED RATE 2018-03-23 ESR 10 0-30 PNEUMOCOCCAL IMMUNITY PANEL 2018-03-13 Reference Lab Notes STREP PNEUMO TYPE 14 18.8 STREP PNEUMO TYPE 19 2.0 STREP PNEUMO TYPE 23 0.3 STREP PNEUMO TYPE 26 2.4 STREP PNEUMO TYPE 4 <0.1 STREP PNEUMO TYPE 56 6.4 STREP PNEUMO TYPE 68 0.8 TEST INFORMATION X C-Spine 2-3 Views 2018-01-02 Image Accessible PNEUMOCOCCAL IMMUNITY PANEL 2017-12-29 Reference Lab Notes STREP PNEUMO TYPE 14 12.8 STREP PNEUMO TYPE 19 1.3 STREP PNEUMO TYPE 23 0.1 STREP PNEUMO TYPE 26 0.1 STREP PNEUMO TYPE 4 0.1 STREP PNEUMO TYPE 56 0.3 STREP PNEUMO TYPE 68 0.1 TEST INFORMATION US Neck/Thyroid 2018-01-05 See Below For Report X Scoliosis AP standing 2017-11-03 See Below For Report X Pelvis 2017-11-03 See Below For Report X Hip R 2V 2017-11-03 See Below For Report BASEMET 2017-10-13 GLUC 161 74-106 BUN 14 7-18 CREATS 0.98 0.55-1.30 EGFR 57 >=60 NA 139 136-144 K+ 4.5 3.7-5.0 CL 101 98-108 CO2 30 22-32 CA 9.3 8.5-10.1 BASEMET 2017-10-07 GLUC 382 74-106 BUN 15 7-18 CREATS 1.05 0.55-1.30 EGFR 53 >=60 NA 136 136-144 K+ 5.9 3.7-5.0 CL 99 98-108 CO2 24 22-32 CA 9.4 8.5-10.1 CBC WITH AUTO DIFF 2017-10-07 WBC 7.3 4.0-12.0 RBC 4.7 4.5-6.0 HGB 13.3 12.5-16.0 HCT 42.2 37.0-47.0 MCV 89 78-100 MCH 28.1 27.0-32.0 MCHC 31.5 32.0-36.0 RDW 14.9 11.0-14.0 PLT 290 140-440 MPV 10.6 7.4-11.0 ANC# 4.6 1.4-7.9 IG# 0.0 0.0-0.1 LY# 2.0 1.5-4.0 MO# 0.5 0.2-0.8 EO# 0.1 0.0-0.7 BA# 0.1 0.0-0.2 NE% 63.2 IG% 0.1 0.0-1.0 LY% 27.7 MO% 7.4 EO% 1.0 BA% 0.7 HEMOGLOBIN A1C 2017-10-07 HGBA1C 10.0 4.6-6.2 CMG 240 LDL (DIRECT) 2017-10-07 LDL 175 5-99 LIVER FUNCTION TESTS 2017-10-07 TP 6.4 6.5-8.1 ALB 3.6 3.4-5.0 TBIL 0.6 0.3-1.2 DBIL 0.2 0.0-0.2 ALKP 95 46-116 AST 26 15-37 ALT 54 13-78 LIPID W/ CALCULATED LDL 2017-10-07 CHOL 325 0-200 TRIG 617 0-200 HDL 54 40-60 CHOL/HDL 6.0 0.0-4.5 X Foot R 3V 2017-09-24 Image Accessible ARTERIAL BLOOD GAS 2017-09-13 PH. 7.46 7.35-7.45 PCO2 31 32-45 PO2 78 70-100 HCO3 21.00 22.00-26.00 BE -1.0 -2.0-3.0 SAO2 95 94-100 DAVIDE PATO2 room air PUNC RIGHT RADIAL AT POS POS BASEMET 2017-09-13 GLUC 381 74-106 BUN 19 7-18 CREATS 1.39 0.55-1.30 EGFR 38 >=60 NA 137 136-144 K+ 4.7 3.7-5.0 CL 99 98-108 CO2 23 22-32 CA 9.0 8.5-10.1 CBC WITH AUTO DIFF 2017-09-13 WBC 9.5 4.0-12.0 RBC 4.9 4.5-6.0 HGB 13.7 12.5-16.0 HCT 42.0 37.0-47.0 MCV 86 78-100 MCH 28.0 27.0-32.0 MCHC 32.6 32.0-36.0 RDW 14.4 11.0-14.0 PLT 419 140-440 MPV 9.8 7.4-11.0 ANC# 6.9 1.4-7.9 IG# 0.2 0.0-0.1 LY# 1.8 1.5-4.0 MO# 0.8 0.2-0.8 EO# 0.0 0.0-0.7 BA# 0.0 0.0-0.2 NE% 73.0 IG% 1.9 0.0-1.0 LY% 18.5 MO% 8.3 EO% 0.0 BA% 0.2 INFLUENZA A/B 2017-09-13 X Chest 2V 2017-09-13 See Below For Report INFLUENZA A/B 2017-09-09 INFLUENZA A neg INFLUENZA B neg INFLUENZA A ANTIGEN INFLUENZA B ANTIGEN MR Lumbar Spine w + w/o ([id number]) 2017-10-13 See Below For Report X Lumbar Spine 2-3V 2017-08-28 See Below For Report X Sacrum/Coccyx 2017-08-28 See Below For Report BASEMET 2017-07-29 GLUC 167 74-106 BUN 8 7-18 CREATS 1.02 0.55-1.30 EGFR 55 >=60 NA 141 136-144 K+ 4.8 3.7-5.0 CL 104 98-108 CO2 26 22-32 CA 9.8 8.5-10.1 CBC WITH AUTO DIFF 2017-07-29 WBC 8.7 4.0-12.0 RBC 5.0 4.5-6.0 HGB 13.5 12.5-16.0 HCT 43.6 37.0-47.0 MCV 88 78-100 MCH 27.3 27.0-32.0 MCHC 31.0 32.0-36.0 RDW 15.7 11.0-14.0 PLT 428 140-440 MPV 10.1 7.4-11.0 ANC# 5.0 1.4-7.9 IG# 0.0 0.0-0.1 LY# 2.6 1.5-4.0 MO# 0.6 0.2-0.8 EO# 0.3 0.0-0.7 BA# 0.1 0.0-0.2 NE% 58.1 IG% 0.3 0.0-1.0 LY% 29.9 MO% 7.3 EO% 3.5 BA% 1.2 GGT 2017-07-29 GGT 170 5-85 LIVER FUNCTION TESTS 2017-07-29 TP 6.9 6.5-8.1 ALB 3.8 3.4-5.0 TBIL 0.6 0.3-1.2 DBIL 0.2 0.0-0.2 ALKP 73 46-116 AST 51 15-37 ALT 59 13-78 POD Foot, R 3V (POD4) 2017-07-07 MR Lower Ext R w/o ([id number]) 2017-05-19 See Below For Report POD Foot, R 3V (POD4) 2017-04-29 POD Foot, R 3V (POD4) 2017-03-31 UA-DIP PLUS MICRO W/REFLEX 2017-03-31 CORRECT CLARITY clear SPECIFIC GRAVITY 1.030 COLOR Dk yellow GLUCOSE 250 BILIRUBIN small KETONES 15mg BLOOD neg PH 5.5 PROTEIN 30mg UROBILINOGEN 1.0 BACTERIA NITRITE neg LEUKOCYTES neg MUCOUS CRYSTALS EPITHELIAL CELLS RED BLOOD CELLS WHITE BLOOD CELLS CAST AMORPHOUS REFLEX CULTURE? AMORPH PHOS AMORPH URATE CALCIUM OX COARSE GRAN FATTY CAST FINE GRAN HYALINE CAST KETONE OTHER RBC CAST RENAL EPI SOURCE TRANS EPI TRIPLE PHOS TUBULAR EPI URIC ACID WAXY CAST WBC CAST VITAMIN D (25-HYDROXY) TOTAL 2017-03-31 UA DIPSTICK ONLY-DIAGNOSTIC Color light yellow Clarity clear Specific Woodrow 1.015 Glucose. neg Bilirubin neg Ketones neg Blood neg PH 6.5 Protein neg Urobilinogen 0.2 Nitrite neg Leukocytes neg POD Foot, R 3V (POD4) 2017-03-03 POD Foot, R 3V (POD4) 2017-02-04 DEXA: Hip and Spine 2017-04-08 See Below For Report POD Foot, R 3V (POD4) 2017-01-07 POD Ankle, R 3V (POD8) 2017-01-07 COMPMET 2016-12-31 GLUC 241 74-106 BUN 21 7-18 CREATS 1.06 0.55-1.30 EGFR 53 >=60 NA 142 136-144 K+ 3.7 3.7-5.0 CL 102 98-108 CO2 30 22-32 CA 8.9 8.5-10.1 TP 6.6 6.5-8.1 ALB 3.9 3.4-5.0 TBIL 0.7 0.3-1.2 DBIL 0.2 0.0-0.2 ALKP 65 46-116 AST 17 15-37 ALT 31 13-78 HEMOGLOBIN A1C 2016-12-31 HGBA1C 7.2 4.6-6.2 CMG 160 LIPID W/ CALCULATED LDL 2016-12-31 CHOL 270 0-200 TRIG 328 0-200 HDL 73 40-60 LDL CALC 131 5-99 CHOL/HDL 3.7 0.0-4.5 X Ankle R 3V 2016-11-14 Image Accessible CALCIUM 2016-09-16 Calcium CALCIUM 9.2 SED RATE 2016-09-16 CORRECT SED RATE 20 HEMOGLOBIN A1C 2016-09-16 HGA1C 7.1 CALC. MEAN GLUC HB2 reviously reported u COMPMET 2016-09-16 ALBUMIN 3.9 ALKPHOS 83 ALT 36 AST 15 BUN CALCIUM 9.2 CHLORIDE 103 CARBON DIOXIDE 29.8 CREATININE STANDARDIZED .90 DIRECT BILIRUBIN ESTIMATED GLOMERULAR FILTRATION GLUCOSE 106 POTASSIUM 5.0 SODIUM 142 TOTAL BILIRUBIN TOTAL PROTEIN EGFR INTERPRETATION BUN/CREAT CORRECT AGE zzGLUCOSE zzCREATININE zzSODIUM zzPOTASSIUM zzCHLORIDE zzCO2 zzCALCIUM zzTOTAL PROTEIN zzALBUMIN zzTOTAL BILI zzALT zzAST zzALKALINE PHOS BUN*/CREAT* CBC WITH AUTO DIFF 2016-09-16 CORRECT ANC WBC 7.97 HGB 13.7 HCT 40.7 PLATELET 450 RBC 4.66 MCV 87.9 MCH 29.4 MCHC 33.7 RDW 13.9 MPV 9.0 ANC #IG #LYMPH #EOS #MONO #BASO NEUTROPHIL % IG% LYMPHOCYTE % MONOCYTE % EOSINOPHIL % BASOPHIL % ATYP LYMPH PLT MORPH PROMYELO MACRO MICRO NRBC HYPO BLAST ANISO BAND BASO EOS LYMPH META MONO MYELO POIK RBC MORPH SEG MANUAL DIFF #IMM GRAN %IMM GRAN LIPID W/ CALCULATED LDL 2016-09-16 CHOLESTEROL 226 TRIGLYCERIDE 129 HDL 74 LDL CALC LDL DIRECT 135 CHOL/HDL zzCholesterol zzHdl zzTriglycerides zzChol/HDL LDL CALC* LIVER FUNCTION TESTS 2016-09-16 ALBUMIN 3.9 ALKALINE PHOSPHATASE 83 ALT 36 AST 15 DIRECT BILIRUBIN TOTAL BILIRUBIN .60 TOTAL PROTEIN 6.9 zzTOTAL BILI TOTAL PROTEIN* ALBUMIN* TOTAL BILI* DIRECT BILI* ALT* AST* ALKALINE PHOS* MULTIPLE LABS 2016-09-16 X Ankle R 3V 2016-07-11 Image Accessible X Foot R 3V 2016-07-11 Image Accessible X Ankle R 3V 2016-05-13 Image Accessible X Foot R 3V 2016-05-13 Image Accessible X Foot L 3V 2015-09-14 Image Accessible X Ankle R 3V 2015-09-05 Image Accessible MG Mammo Screening 2014-08-09 Image Accessible EKG #1-IN OFFICE TODAY REASON FOR VISIT HTU LIPID DM CHRONIC PAIN , followup predislocation syndrome right second toe,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, 3 months subtalar joint injection, possible uti requested date, Rx Oxycodone, nystatin clarification, need rx Tizanidine 2mg #180, Oral thrush, Re:RE:Wheezing/now green, Wheezing/now green, Re:RE:wheezing, wheezing, followup predislocation syndrome right second toe, referral done, pt states that she is here for f/u visit , pt states that the last injection has really helped , pt states that the splint that was given as helped way more than she thought is would and would like a couple more , URGENT, oxycodone clarification, rx: oxycodone 15 mg #135, short of breath, re: methylprednisolone 4 mg, Zolpidem 10 mg, coughing, 3 mo f/u htn, dm, chronic pain, NEEDS UPDATED CSA-AC, Refills:none needed., Concerns: pt hs pain in left knee and in right ankle. , Pt states asthma has been bad lately., pt would like to receive flu shot, RE:Re:RE:re Increased pain in L knee, Re:RE:re Increased p ain in L knee, Re:RE:re Increased pain in L knee, re Increased pain in L knee, rx Nystatin , RE: J Rx Temazepam and N. knee pain block, Test strip refill, Re:RE:Asthma again, rx duo med, Asthma again, rx duo med, osteoarthritis, last seen by ALR on 02/09/20 for foot care -HL , pt states that she is here for follow up foot care , pt states that the injection in the right ankle really helped,, pt statesthat the pain relief from the injection lasted until about three days ago , pt states that she wouldlike another injection today, rx Tizanidine 2 mg # 180 and rx Oxycodone 15 mg # 135, brace order question, saw Dr Jurado in [facility], asthma, Re: thrush, RE:Re: knee pain, Re: knee pain, Re: rx oxycodone 15mg, re Albino rx Atorvastatin Calcium 40 mg and Michelle blood test results, Re: atorvastatin 40 mg ?, Incraesed medications, DM shoe certification, CPE, Pt needs to have Dr. De La Vega certify LIVIER becker- SM , Needs 2nd Hep A vaccine, Needs Urine for Tox Screen, Results of Nuclear Scan, need to know who should be certifying, Painful cyst on right gluteal fold, URGENT, Re: rx oxycodone 15mg, Re: specialized knee scan, f/u foot pain referral done, Last seen by WS on 01/06/2020 for 1 year f/u , pt states that she is here for foot pain f/u , pt states that she an MRI done of her right ankle area and WMC , re: RX OXYCODONE AND TIZANIDINE, RE:Re: knee pain, Re: knee pain, Painful cyst on right gluteal fold, follow up, swollen legs/feet, re: rx: Diphenoxylate-Atrophine 2.5, rx: oxycodone 15 mg # 120, 1 year f/u, pt states she is here for R leg and foot pain eval-[employer], [employer] Patient Assistance Program, Humalog clarification, humalog refill, rx: humalog quickpen, 2 month f/u--patient r/s 12/16, Re:RE:rx: oxycodone 15 mg #60, rx: oxycodone 15 mg #60, Change appointments, Januvia, rx: nexium, metoprolol, amlodipine, atorvastatin, Re:RE:re: rx oxycodone 15 mg #60 and rx tizanidine 2 mg #180, re: rx oxycodone 15 mg #60 and rx tizanidine 2 mg #180, rx: methylprednisolone 4 mg and montelukast 10 mg, Januvia, Januvia through [facility], jacks rx, Albino needs rx Temazepam 30 mg #90, re: rx oxycodone 15 mg #60 and rx tizanidine 2 mg #180, UTI, RE:RE:Re: continued UTI and now diarrhea, RE:Re: continued UTI and now diarrhea, Re: continued UTI and now diarrhea, C19, Rx: Oxycodone 10 mg for Albino, PAP merck , Januvia through [facility], R foot doing better., Zolpidem and Folic Acid, re : RX oxycodone 15 mg , pain in right foot referral done, Patient had appt 10/13, rescheduled to today. Patient was last seen by WS on 01/04/19 preventative diabetic foot evaluation and recommendations today. She also has lower extremity edema. Diabetic shoes were ordered through [employer], nailcare done, tubigrip size F placed on legs, discussed possible arthropolasty to be done at some point. Xrays were done at that time and discussed with patient. JL, pt states she is no longer using tubigrip , pt states that she fell on on 10/24 and that she heard a popping sound in the right , pt states that she has two sore spots on the top of the right foot, one spot is near the big toe and second toe and then the other spot between the 4th and 5th toes , pt states that she started to wear her cam walker boot today, Re:RE:rx nystatin, prednisone push, ? fx r foot, rx nystatin, prednisone push, ? fx r foot, MERCK PAP, drug interaction, UTI, needs antibiotc, Rx: lisinopril 10 mg and leflunomide 20 mg, 6 WK F/U, ?UTI, Re: oxycodone, pain in foot referral done, pt r/s 10/13, Re:RE:extreme diarrhea, extreme diarrhea, Re:RE:Albino needs referral, refill needed for oxycodone 15 mg #60, Albino needs referral, need duo med, re: refill rx: Oxycodone 15 mg and tizanidine 2 mg , reduced urination, RE:RE:Re: new pain med and test strips, RE:Re: new pain med and test strips, Re: new pain med and test strips, 6 WK F/U, Needs Hep A due to MOELLER would like to speak to CL first, Refills: , Concerns: pt states her knees are getting worse, Rx: hydromorphone 8 mg, Albino needs Nexium, Celebrex, synthroid, PAP application, rx: zolpidem 10mg, Re Januvia RX, refill hydromorphone, Albino RX Temazepam 30 mg, RE:RE:RE:RE:RE:Re: Rx, Hydromorphone 8 mg, RE:RE:RE:RE:Re: Rx, Hydromorphone 8 mg, RE:RE:RE:Re: Rx, Hydromorphone 8 mg, RE:RE:Re: Rx, Hydromorphone 8 mg, RE:Re: Rx, Hydromorphone 8 mg, resend script, Rx: hydromorphone 8 mg, 6 WK F/U, coughing up mucous , Refill one touch ultra needles, test strips , Leflunomide refill, 2 WEEK HTN DM F/U, Tizanidine refill, Re: Rx, Hydromorphone 8 mg, Discharged from [facility] 05/20/19, Refills: none, Concerns: pt states her right foot isin alot of pain, pt states her leg is swollen and is pushing against the cast , Flu shot? yes, TCM template , tcm documentation, Re: daily blood sugars, Re:arm leakage , 8 WK F/U, diabetic shoe certification, Call Back , DM shoe Cert, pre-op for surgery , Re: hydromorphone, refill Hydromorone, sophie , Re:RE:knee failure, knee failure, diabetic shoe certfication, increased pain, injured surgical knee, DM shoe certification, Hydromorphone refill, Wheelchair order denied, wheelchair, Re: hydromorphone, f/u from [facility] discharge 04/03, Concerns: pt states she would like to discuss medications- pt states she went to the ER friday due to her back freezing up and she couldn't move- pt states she has a strong imbalance of minerals in her body- pt states [facility] was horrible and they didn't manage her pain and she was in ALOt of pain the entire time she was there, nurses were refusing her pain meds , Re: Albino's Tamulosin 0.4 mg and Lipitor 40mg, Rx: Flomax and Lipitor for Albino, Re: wheelchair, f/u appt with CL 04/13/19, Laboratory Assistant Documentation, rehab, Rx: Tizanidine HCI 2mg and Hydromorphone 8mg, Januvia application, Preop [facility], 6 week f/u, htn, dmz, Concerns: pt states she is here to get a cyst on the back of her neck checked out. states she has had it for years but it has gotten worse over the past few weeks , pre op, Re:RE:Re: [employer] application for Januvia, Re: [employer] application for Januvia, Note for Januvia , Januvia assistance, Rx: hydromorphone 8 mg, feel hurt ankle, last friday pttook a bad fall and hit her head , leg with mechinism in it as been really sore since the fall, as been also expericing some bloody discharge from right ear, pt also states she has a sore on her right butt cheeck , Albino Rx: Celebrex 200mg refill, RE: Hydromorphone, Hgbl A1C result ?, DM shoe certification, 6 wk f/u, needs visit with JF for DM shoe certification-km, Needs Hepatitis A series- DENIED due to going away , Refills: , Concerns: , Lantus and Pen needle refills, Lantus Solostar again, lantusclarification, Problem c [place] and my Lantus, asthma exacerbation, refills: None right now , concerns: pt states she couldn't breathe last night, couldn't get air out of her lungs, , appt today with CL, Rx: Lantus Solostar, resend script, diagnosis code needed, Issues with asthma, question on hydromo rphone script , Rx: Hydromorphone 8mg, Bronchitis? wants to be looked at today, ?bronchitis, RE rx: hydromorphone 8mg and tizanidine 2mg, Diabetic foot care; referral done, Referred from Floyd Brunner for long history of diabetes, please evaluate and treat., Most recent A1C 11/09/18 9.5, Last seen by Dr. Bowles on 07/22/18 for closed nondisplaced fracture of second metatrasal bone of right foot., pt states she is here for DM footcare, PAP paperwork Ben, Re: [employer] application for Januvia, Rx: antiitch med, discount coupon for Januvia, 6 week f/u hn, dm, chronic pain, pill count and urine tox needed, Refills: Hydromorphone, Tizanidine, Rx: Nystatin rinse, Hydromorphone, FAX, Re: UTI, possible need for another antibiotic, Arava refill, rx: Hydroxyzine Pamoate 50mg or metocloplopramide 10 mg, Refill Metoporlol Tiazinde, f/u issues with urination, not urinating, Pt states last thurs had severe nausea, felt better fri, came back and hit her real bad, urinated at 3am yesterday hasn't gone since 6pm , had a fever of 99-101 took tylenol as needed, Lt leg is more swollen still nauseated , Pt states she has not been doinmg her shots for about a wk cause she couldn't eat, was able to have alittle bitof food last night so she took a shot then, Please call , rx : Albino's Esomeprazole (Nexium), rx: synthroid 100 mcg, rx: Hydromorphone 8mg, Albino rx: levothyroxine, Re:RE:rx: methylprednisolone 4mg, rx:methylprednisolone 4mg, CPE and 4 week f/u htn chronic pain, R foot, heel is painful, rx Hydromorphone 8 mg, 3 month f/u fracture Referral Done, last seen by ALR 07/22/18 for Closed nondisplaced fracture of second metatarsal bone of right foot with routine healing, subsequent encounter, was to wear supportive shoe in the house and camwalker while outside walking , IF ANY PAIN REPEAT X- RAYS , A1C: drawn 09/04/18 was 10.1, pt states her right foot is still painful , pt states when she had a back injection and when she was climbing onto the bed and coulnd put her knee down so she put her weight on her foot , pt is no longr wearing the cam walker boot but is wearing her supportive shoes , rx: Hydroxyz ine Pamoate 50mg, 6 week f/u HTN DM chronic pain, Refills: none, Concerns: pt states she has a sore nasal , rx:Reglan, rx Reglan, rx Hydromorphone 8 mg, Follow up foot pain, swelling, referral done, last seen by ALR 07/22/18 for f/u on right foot , images obtained at last visit , was to wear a supportive shoe in home and cam walker while outside walking , If any pain will need repeat x-rays , A1C: drawn 09/04/18 was 10.1, was to continue range of motion exercises as much as possible , hydroxyzine pamoate 50mg, referral, re swelling/pain, Re:RE:hydromorphone and tizanidine refills, Re:RE: refills, hydromorphone and tizanidine refills , refills just received by mail, [facility], dx. code, Re:RE:Re:RE:pain tx, Re:RE:pain tx, pain tx, l leg pain, NM 3 Phase Bone Scan, knee scan/ no pain relief, hydromorphone refill , Laboratory Assistant Documentation, needs cpe apt., script clarification, refusal of urine, Left knee very swollen hurts to the touch and had knee replaced a few years ago, left knee pain, pt states pa in level is a 10, pt states she has been taking double of her hydromorphone for the past 4 days, want year supply of all meds to mail away, Re:RE:L leg pain/?cellulitis, L leg pain/?cellulitis, pain !!!!, today's visit with Petra, leg pain, FYI, rx, folic acid 1mg refill , zolpidem refill , zolpi dem and amlodipine refills , Rx Hydroxyzine, cpe/6-8 wk fu--patient r/s 08/06, 6-8 Week F/u, back pain, Disc, new MRI needed, Re:RE:RE: increased back pain, RE: increased back pain, 6 week follow up , A1c 03/23/18 - 10.7, Last seen 06/08/18 - Closed nondisplaced fracture of third metatarsal bone of right foot sustained in fall in Apr, Looking for eyedr, Pt states bruising is gone, still some pain present, Re:RE:Re:RE:back pain, Re:RE:back pain, back pain, Re:RE:pain rx, pain rx, back pain, lisinopril refill/ needs cpe , 3 week f/u, pt requested date patient cancelled states will be seen 07/22, cancel 06/24 appt with AR, R foot pain, 6 WEEK FOLLOW UP HTN CHRONIC PAIN, States needs a pain med, would like a mamogramm, recheck nodes on larnex, increased back spams since fall, PT REQUESTING FLU SHOT TODAY, Refill of breo , R foot pain, Humalog Rx, fx R foot again, need rx Humalog, Foot pain referraldone, last seen by TAS 05-29-18 for right foot pain , images were obtained at last, rest and ice wererecomended , pt states she is here for right foot pain , pt states she still has the same pain , 6 WEEK FOLLOW UP HTN CHRONIC PAIN patinet r''s 05/12, possible broken foot patient requested date, pt states she is here for a possible of fracture right foot , pt states she fell 1 week ago , no recent x rays , pt states previouse trama in november 2016 , r/s 06/01 appt with CL, pain rx, L hip pain, mobility s cooter application, flexeril, Discuss mobility chair with KM, L hip pain and back pain, scooter , Re:RE:my back/hip pain, my back/hip pain, hydromorphone issue, taking more oxycodone, L hip pain, L hippain, needs to be seen to get script, pt needs a refill on her Flexeril [facility] - RE, flexeril refill, ? needs new order US thyroid, DISCLAIMER: THIS NOTE WAS CREATED USING [employer] VOICE RECOGNITION SOFTWARE. IT WAS REVIEWED FOR MAJOR CONTENT. HOWEVER, THERE MAY BE MULTIPLE SMALL DISCREPANCIES AND ERRORS DUE TO THE VOICE RECOGNITION ASPECTS OF THE SOFTWARE., med f/u gk patient, pt needs a refill on her Oxycodone [facility]- RE, csa management, 03/23 pb , Lisinopril refill/overdue appt/new PCP, 2 month f/u , oxycodone 5 mg #90 refill, Oxycodone refill, metoprolol refill, metoprolol refill, ambien refill, oxycodone refill , 3m f/u, mobility exam, Refill Prednisone, Insulin syringes, question on humira script sent in, prednisone, pt has overdue labs- km, Syringes/needle size?, [facility] , humalog refill, replace humalog, not feeling well, rehab notes, wrong dx code on duoneb, duoneb/albuterol clarification, albuterol, duoneb refill, question on prednisone, electric scooter, antibiotics, 2 mo f/u, Needs updated CSA-ac, oxycodone refill, Refill Metoprolol and Ambien, Metformin refill, refill , Disc, Rx for Ultrasound [facility], Oxycodone 5 refill, ortho input, DISCLAIMER: THIS NOTE WAS CREATED USING [employer] VOICE RECOGNITION SOFTWARE. IT WAS REVIEWED FOR MAJOR CONTENT. HOWEVER, THERE MAY BE MULTIPLE SMALL DISCREPANCIES AND ERRORS DUETO THE VOICE RECOGNITION ASPECTS OF THE SOFTWARE., rt hip/xray prior, pt states pain is constant, states average pain is 6-7 "never goes away", pt states when she tries to walk it is agony, order xray, Home health unable to help, patient states after two days of taking the HCTZ due to lightheadedness , pt states the rx that you wanted her to quater its not working out well, it crumbles , Meds reviewed by pt,dose change as follows: pt states she is taking metoprolol 500 mg only once a day, not twice a day - JMJ, Meds reviewed by pt,no longer taking: HCTZ clobetasol, nystatin, silvadene, loratadine, symbicort - JMJ, Meds reviewed by pt,unsure: amlodipine? patient thinks this is the one you wanted her to take 2.5 - JMJ, Lantus refill, Disc, LAB, Repeat labwork, 4 week f/u , 2 mth f/u-- patient called cancelled 09/26, medrol clarification, 6 week f/u right foot stress fracture, xrays DONE TO DAY-right foot, pt states she did fall last friday due to not using the walker, hurt her ankle andback , Refill Methylprednisone, ER f/u (Weeks)--r/s 09/15, xray order, Prednisone script clarification, ER f/u (weeks) ok KM, appt with for ER f/u, Questions on abx, asthma attack-, FU asthma, pt took 2 10mg prednisone tabs earlier that she had left over, Office note for nebulizer, Levaquin clarification, possible bronchitis requested date, fever, cough, dark green sputum since friday, f/u, pt already has appt, MRI L spine w wo, MRI order L spine, Folic Acid refill, 3 month f/u , Multiple refills, Lt thigh pain, for 1 year, pt had ripped quad muscle, thinks could have ripped again since fall -sd, Pt has had xrays today-sd, fell, back pain since 08/17, trouble lifting left leg, Medication Refill(Ambien 10mg), Questions about Prednisone , oxycodone and prednisone refill, 1 month f/u , Pt was last seen by AR on 07/07, Medications reviewed w/pt,med. list is correct -KMM, Pt states that she has been using the bone stimulator every 12 hours., Pt is wearing the orthopedic shoes., Pt is using walker to walk around., Pt states that the pain has increased in her right foot -an inch below her toes -wondering if its because she wasnt walking on it for 6 months., Pt states that she has been having pain in her upper left thigh -PCP wanted an US -insurance wouldnt cover it., call [facility] dx code - Contact pt, blood draw, needs to speak with dr.[email or web address] dietrich some issues she is having, concerns about liver, pain in LUQ, Pain in left knee, oxycodone refill , 6 week post bone stimulator - xrays, Referral Done, Pt last seen 04/29 by AR, Needs repeat xrays of right foot 6 weeks post bone stimulator, Pt states that she has been using the bone stimulater for about 4-6 weeks,, Pt states that she tried using the orthopedic shoe in the house (per Dr. Chaparro and [place]) but she was having increased so she went back to wearing the cam walker boot, Pt states that Dr. Chaparro but her on an antibitotic for a pressure sore on her right interior ankle on 06/19 -pt states that she has completed the antibiotic, the area is still pink/sore., Pain, Nystatin, nystatin directions, directions to med, follow up , ?normal, Oxycodone refill, F/U/ W/XRAY OF R/FOOT, Referral Done, R/S appt, Refill , 2 week fu , Ambien refill, Bone Stimulator, appt today with [facility], Follow up, thrush?, Started prednisone taper for asthma, FYI, methylpdopa refill, Oxycodone refill , bronchitis, MRI order, 4 week f/u , Pt states that she had her Dexa Bone Scan done last week., 3 month f/u, Pt was last seen by AR on 03/31/17, Needs xrays of right foot -NOT ordered, ?If [employer] boot is helping. ?If pt has received Pinky brace yet.?If pt has had Dexa scan, pt/ot-lmom, 04/18-tb, Increased foot pain, referral done, Cancelled appt, foot pain, 6 week f/u facture (R) foot, xrays (R) foot, oxycodone , Vitamin D, Additional info for referral, urine results/scooter, UTI?, last seen 03/03 fracture of second metatarsal bone on right foot,F/U Ankle Pain, Referral Done, pt states foot was getting better but transferred from chair to chairand something happened, very painful for a few days, labs, lisinopril refill/labs, new chair , xray,refill-oxycodone, UTI, 4 weeks f/u/, Pt states right foot is felling better, hoping it is healing, Obtain Xrays right foot -already ordered, 03/[address] Chaparro, refill-folic acid, update, pain, pain patch, 4 week f/u, xray (R) 2nd metatarsal fx 3 views, Referral Done, pt states her pain level is a 9, meds are taking sharp edge off but not completely, pt states last couple days she has hadto stay in bed because pain is so high, pt states she has pain at the base of her left big toe, resend percocet, refill-percocet, Ankle Pain, Referral Done, Excruciating pain, Dexa and labs, Ankle pain-need xrays of foot/ankle, Referral Done, Pt states pain became worse on Friday. Was very active prior to this, including trip to [place], Has been in bed since Friday, Pain is as bad as post surgery pain., Has been feeling and hearing a significant clicking in right foot, first noticed a week ago Friday., Pt states Dr Chaparro said pt could increase her dose of pain meds to every 4 hrs; took 2 doses last night, and 3 so far today., Right foot pain, CSA SIGNED WITH DR. CHAPARRO ON 12/31/2016 FOR [id number], ankle pain referral done, bw, 3 MO F/U, asthma, ? ok for prednisone, Multiple refills , amlodipine tablets--FYI, Amlodipine change, Referral to Dr. Grijalva, refill-zolpidem, r Ankle pain increased, asthma, looking for prednisone, ?bronchitis, cough, congestion, low grade fever since , itchyrash on chest and neck, F/U 30 MINS PER G[facility], multiple refills , Diazepam, back pain getting worse, hxof 2 back surgeries, medrol , ? on one touch, medrol, ambien, FYI, Pen needles, pen needles failed ,1 month f/u , refills on lipitor, nexium, singulair, mehtyldopa, lantus, humalog, lisinopril, test strips, ambien, alendronte, methylprednisone, zofran- send to [facility], ambien refill , script for lancets/test strips, glucometer, Glucometer?, one touch meter, new pt, New pt packet , New Patient/Declines [facility] Insurance Providers [facility], [facility] Member Patient Patient Patient Patient Patient Subscriber Subscriber Subscriber Group Insurance Plan Plan Plan Plan ID Relationship Address Phone Name Date of ID Name Date of No Type Insurance Insurance Insurance Coverage to Subscriber Address Phone Name Dates SELF PAY [address] SELF PAY self MICHELLE [id number] GENERAL [facility] [id number] [place] GENERAL [address] self MICHELLE [id number] INSURANCE 1999 INSURANCE [facility] [id number] MEDICARE 3000 GOFFS MEDICARE self MICHELLE [id number] [facility] [id number] SELF PAY [address] SELF PAY self [place]HELLE [id number] [place] [id number] INSURANCE [address] self [place]HELLE [id number] [address] [facility] [id number] [address] self MICHELLE [id number] Y OTHER [place] OTHER [facility] [id number] [address] self [place]HELLE [id number] INSURANCE 2000 INSURANCE [facility] [id number] MEDICAL (GENERAL) HISTORY Type Description Date Medical History CONTROLLED SUBSTANCE AGREEMENT SIGNED [place] FLOYD BRUNNER 12/24/2018 [id number] Medical History Psoriatic arthritis Medical History Hypertension Medical History diabetes mellitus 2 Medical History osteoarthritis Medical History hypercholesterolemia Medical History 08-09-2014 mammogram, [facility], neg Medical History 03-17-2014 Diabetic eye exam, Dr. 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 Medical History Hammer toe of right foot Medical History Closed nondisplaced fracture of second m etatarsal bone of right foot with nonunion, subseq uent encounter Medical History Closed nondisplaced fracture of metatars al bone of right foot, unspecified metatarsal, sequ jimi Medical History Chronic pain syndrome Medical History Asthma exacerbation Surgical History Hysterectomy 1989 Surgical History Cholecystectomy 1989 [facility] Laminectomy of L3, L4 and L5 - [facility] 04/2011 Surgical History Multiple knee surgeries replacement - [facility], [id number] Dr[address] Rajesh Harkins Surgical History Quad repair, knee revision [place] [place] Surgical History Ankle stablization - right14 2014 Surgical History Colonoscopy-repeat 10 years 12/15/2018 Surgical History Left quadriceps tendon repair w/semitend inosus 03/24/2019 allograft and polyethylene exchange Surgical History Left knee extensor mechanism reconstruct ion- [facility] [place] 05/26/2019 Hospitalization History hepatitis drug-induced 2004 Hospitalization History knee reconstruction- [facility] 05/26/2019
--- NOTE | 2021-01-31 08:15 | DI.RAD_ITS ---
Exam(s) XR CHEST 2V PA LATERAL EXAM: XR CHEST 2V PA LATERAL CLINICAL HISTORY: SOB, Hx of asthma, R/O PNA TECHNIQUE: 2D digital imaging was performed. COMPARISON: CR CHEST 2 VIEWS PA,LAT from 08/09/2014 CR CHEST 2 VIEWS PA,LAT from 08/09/2014 FINDINGS: Examination is somewhat limited due to patient body habitus. MEDIASTINUM: Normal. HEART: Normal. PULMONARY VASCULATURE: Normal. LUNGS: Clear. Densities in the right suprahilar region. While this may represent pulmonary vasculat ure, a pulmonary mass or infiltrate cannot be excluded and CT scan is recommended. PLEURAL SPACE: No pleural effusion or pneumothorax. BONE:Within normal limits for the patient's age. OTHER FINDINGS:Normal. IMPRESSION: Right suprahilar prominence. This may represent normal pulmonary vasculature. Pulmonary or mediasti nal mass or infiltrate cannot be excluded. CT scan should be considered for further evaluation. DATA REPOSITORY: RADIATION DOSE DELIVERED:
--- NOTE | 2021-01-31 08:15 | RT.EKG_ITS ---
APPROVED REPORT Exam: Resting ECG Reason for Exam: sob Patient Location: E HR:80 bpm ECG Measurements Heart Rate 80 AXIS DE 148 P 39 QRSd 126 QRS -24 QT 411 T 36 QTc 470 Conclusion Sinus rhythm. Multiple premature complexes Right bundle branch block.
--- NOTE | 2021-01-31 08:25 | ED.GENADUL_ITS ---
Discharge Plan Disposition Patient Disposition: HOME Condition: Fair Discharge Details Clinical Impression: Pneumonia Primary Care Provider: Chito Brunner ED Provider: Beatriz Schwarz Home Meds and New Rx's Prescriptions: Continued furosemide 40 MG tablet 40 mg PO DAILY PRNRF: 0 Lantus U-100 Insulin 100 UNIT/ML solution 42 units Sub-Q DIRECTED RF: 0 albuterol sulfate 3 ML solution for nebulization 1 unit Inhalation QID PRNRF: 0 atorvastatin [Lipitor] 10 MG tablet 10 mg PO DAILY RF: 0 methylprednisolone 4 MG tablet 4 mg PO DAILY RF: 0 amlodipine 5 MG tablet 5 mg PO BID RF: 0 metoprolol succinate 50 mg Tablet Extended Release 24 Hr 50 mg PO DAILY RF: 0 aspirin 81 mg Tablet,Chewable 81 mg PO DAILY RF: 0 Januvia 50 mg Tablet 50 mg PO DAILY RF: 0 lisinopril 10 mg Tablet 10 mg PO DAILY RF: 0 insulin lispro [Humalog KwikPen Insulin] 100 unit/mL Insulin Pen 10 unit SUBCUT 1200 RF: 0 Humira 10 mg/0.2 mL Syringe Kit 10 mg SUBCUT RF: 0 No Action potassium chloride 10 MEQ capsule, extended release 10 meq PO DAILY PRNRF: 0 fluconazole 150 MG tablet 150 mg PO .X1 PRNRF: 0 leflunomide [Arava] 20 MG tablet 20 mg PO DAILY RF: 0 esomeprazole magnesium [Nexium] 40 MG capsule,delayed release(DR/EC) 40 mg PO DAILY RF: 0 betamethasone, augmented [Diprolene (augmented)] 50 GM ointment 1 applic Topical DAILY PRNRF: 0 folic acid 1 MG tablet 1 mg PO DAILY RF: 0 montelukast 10 MG tablet 10 mg PO DAILY RF: 0 zolpidem 10 MG tablet 10 mg PO HS RF: 0 calcium carbonate-vitamin D3 [Calcium 600 + D(3)] 1 EACH tablet 1 tab PO BID RF: 0 hydrochlorothiazide 25 mg Tablet 25 mg PO DIRECTED RF: 0 Multi Vitamin 9 mg iron/15 mL Liquid 1 mg PO DAILY RF: 0 hydromorphone 8 mg Tablet 8 mg PO Q6H PRN PRNRF: 0 tizanidine 2 mg Tablet 2 mg PO Q8H PRN PRNRF: 0 Breo Ellipta 200-25 mcg/dose Blister With Device 2 ea INHALATION QHS RF: 0 albuterol sulfate 0.63 mg/3 mL Solution For Nebulization 2 mg inhalation PRN PRNRF: 0 diazepam [Valium] 2 mg tablet 2 mg PO BID PRN (Reason: back pain) Qty: 20 RF: 0 Narcan 4 mg/actuation spray,non-aerosol 1 spray RICCI ONCE PRN (Reason: opioid overdose) Qty: 2 RF: 0 prednisone 20 mg tablet 20 mg PO DAILY Qty: 13 RF: 0 Discharge Instructions Instructions: Pneumonia (ED) Additional Instructions: Continue taking the doxycycline as prescribed. Continue taking the prednisone as previously prescribed. Do not use the level albuterol nebulizer more frequently every 6-8 hours. Please return to the ED for any worsening, unable to function or any concerns. Please take your Lasix as discussed upon arriving home. At this time you have declined Lasix here in the department I did offer a CT of your chest to further evaluate differentiate the pneumonia. However the antibiotics that you are taking should treat this. Follow up with primary care provider in 3-5 days. Return to ED sooner if any worsening or concerns. Referrals: Chito Brunner [Primary Care Provider] - Discharge Data Discharge Date/Time-TO BE ENTERED AT DEPARTURE: 01/31/21 10:27 Medical Decision Making At this time work-up ordered, reviewed chest x-ray, CBC, CMP, serial troponins. Respiratory therapy at bedside for patient evaluation. Patient has been taking levalbuterol every 2 hours. Concern for fluid overload at this point. BNP added onto labs. They are hesitant to give any further breathing treatments at this time due to the amount of excessive levalbuterol the patient has been taking. At this time we will hold off on giving any further treatments. EKG was reviewed by Dr. Jaycob Ledesma ER attending, old EKG available for review, right bundle branch block occasional PVCs, no STEMI. BMP shows level 658, patient does normally take furosemide, she is to take 40 mg daily she did not take it this morning. Discussed giving her some Lasix here in the department which she declined at this time because I cannot breathe and I do not want to get up to the bathroom. Patient states that her swelling has improved from previous. I did discuss with her she could be partially fluid overloaded and this could be causing her shortness of breath. Patient is requesting to wait till after x-ray. 1002: 40 mg furosemide IV ordered patient has returned from x-ray awaiting official radiology report, patient is declining Lasix at this time. Patient remained hemodynamically stable continues to have a room air oxygen saturation 97%. FINDINGS: Examination is somewhat limited due to patient body habitus. MEDIASTINUM: Normal. HEART: Normal. PULMONARY VASCULATURE: Normal. LUNGS: Clear. Densities in the right suprahilar region. While this may represent pulmonary vasculature, a pulmonary mass or infiltrate cannot be excluded and CT scan is recommended. PLEURAL SPACE: No pleural effusion or pneumothorax. BONE:Within normal limits for the patient's age. OTHER FINDINGS:Normal. IMPRESSION: Right suprahilar prominence. This may represent normal pulmonary vasculature. Pulmonary or mediastinal mass or infiltrate cannot be excluded. CT scan should be considered for further evaluation. Discussed XRay results with patient, offered CT exam per radiologist recommendations. Patient would rather go home and take her on Lasix this time. Discussed strict return instructions and discussed continuing the regimen as prescribed. She is on doxycycline prednisone taper. I did discuss not using a level albuterol more often than every 6-8 hours. Patient verbalized understanding, family is at bedside. Patient to be discharged home. HPI General Date/Time Provider Initiated Documentation: 01/31/21 08:16 . Limitations to Documentation: no limitations . Information obtained by: patient . HPI Narrative: 55-year-old female with history of asthma presents to the ER with asthma exacerbation. She reports she was recently diagnosed bronchitis on Friday and was given prednisone taper and doxycycline by her PCP. Reports fever on Friday no documented temperature today. She reports productive cough with yellow sputum. She did a long-acting nebulizer levoalbuterol approximately 8 minutes prior to arrival. She also has DuoNeb at home. She denies being a smoker. On initial exam she is satting 97% on room air speaking in full sentences. However does appear short of breath. Expiratory wheezes on auscultation and diminished lung sounds. Denies any nausea vomiting diarrhea. Does report some midsternal chest pain which she associates with shortness of breath and coughing. Related Data Home Medications Medication Instructions Recorded Confirmed Lantus U-100 Insulin 42 units SUB-Q DIRECTED 01/11/14 01/31/21 albuterol sulfate 1 unit INHALATION QID PRN 01/11/14 01/31/21 amlodipine 5 mg PO BID 01/11/14 01/31/21 atorvastatin [Lipitor] 10 mg PO DAILY 01/11/14 01/31/21 betamethasone, augmented 1 applic TOPICAL DAILY PRN 01/11/14 01/31/21 [Diprolene (augmented)] calcium carbonate-vitamin D3 1 tab PO BID 01/11/14 01/31/21 [Calcium 600 + D(3)] esomeprazole magnesium [Nexium] 40 mg PO DAILY 01/11/14 01/31/21 fluconazole 150 mg PO .X1 PRN 01/11/14 01/31/21 folic acid 1 mg PO DAILY 01/11/14 01/31/21 furosemide 40 mg PO DAILY PRN 01/11/14 01/31/21 leflunomide [Arava] 20 mg PO DAILY 01/11/14 01/31/21 methylprednisolone 4 mg PO DAILY 01/11/14 01/31/21 montelukast 10 mg PO DAILY 01/11/14 01/31/21 potassium chloride 10 meq PO DAILY PRN 01/11/14 01/31/21 zolpidem 10 mg PO HS 01/11/14 01/31/21 Breo Ellipta 2 ea INHALATION QHS 04/09/19 01/31/21 Humira 10 mg SUBCUT 04/09/19 Januvia 50 mg PO DAILY 04/09/19 01/31/21 Multi Vitamin 1 mg PO DAILY 04/09/19 01/31/21 albuterol sulfate 2 mg INHALATION PRN PRN 04/09/19 01/31/21 aspirin 81 mg PO DAILY 04/09/19 01/31/21 hydrochlorothiazide 25 mg PO DIRECTED 04/09/19 01/31/21 hydromorphone 8 mg PO Q6H PRN PRN 04/09/19 01/31/21 insulin lispro [Humalog KwikPen 10 unit SUBCUT 1200 04/09/19 01/31/21 Insulin] lisinopril 10 mg PO DAILY 04/09/19 01/31/21 metoprolol succinate 50 mg PO DAILY 04/09/19 01/31/21 tizanidine 2 mg PO Q8H PRN PRN 04/09/19 01/31/21 Narcan 1 spray RICCI ONCE PRN #2 each 04/11/19 01/31/21 diazepam [Valium] 2 mg PO BID PRN #20 tab 04/11/19 01/31/21 prednisone 20 mg PO DAILY #13 tab 04/11/19 01/31/21 Previous Rx's Medication Instructions Recorded Narcan 1 spray RICCI ONCE PRN #2 each 04/11/19 diazepam [Valium] 2 mg PO BID PRN #20 tab 04/11/19 prednisone 20 mg PO DAILY #13 tab 04/11/19 Allergies Allergy/AdvReac Type Severity Reaction Status Date / Time clarithromycin [From Biaxin] Allergy Intermediate Skin Rash Unverified 01/31/21 08:15 Penicillins Allergy Intermediate Skin Rash Unverified 01/31/21 08:15 Sulfa (Sulfonamide Allergy Intermediate Skin Rash Unverified 01/31/21 08:15 Antibiotics) capsaicin Allergy Anaphylaxsi Unverified 01/31/21 08:15 s nickel Allergy Unverified 01/31/21 08:15 General Stated Complaint: RespSymp ARABELLA: 3 Review of Systems Narrative: Constitutional: Negative for weight loss, alert and oriented, well groomed, normal body habitus, appears uncomfortable. Reports fever on Friday. HEENT: Denies trauma, headaches, blurry vision, nasal discharge, sore throat, trouble swallowing. Chest: Denies chest pain, palpitations, irregular rhythm, hypertension. Respiratory: Denies hemoptysis. Positive shortness of breath cough with yellow productive sputum. GI: Denies abdominal pain, nausea, vomiting, diarrhea, constipation. : Denies dysuria, hematuria, flank pain, rectal bleeding. Neuro: Denies dizziness, blurry vision, weakness, syncope, headache or facial numbness. Hematologic: Denies easy bruising, intolerance to heat or cold, hair loss. [facility] Medical History (Updated 01/31/21 @ 10:17 by Beatriz Schwarz) Diabetes mellitus Pain Rheumatoid arthritis Surgical History Status post total left knee replacement Social History Smoking/Tobacco Use Status: Never Smoking risk assessment performed?: Yes Alcohol Intake: current Alcohol Intake frequency: holidays/special occasions only Drug use: Never Do you feel safe at home: Yes Do you feel safe in your relationship?: Yes Exam Narrative Exam Narrative: Constitutional: Alert and oriented x3. Appears stated age. Normal body habitus. Head: Normocephalic, no trauma. Eyes: Pupils PERRLA, Red reflex noted, EOM's intact. Eyelids symmetrical without lesions, discharge, or swelling. ENT: Bilateral TM's WNL, External ear normal to inspection, no mastoid TTP, swelling, or erythema, Nasal turbinates WNL, no nasal discharge. Normal dentition, Posterior pharynx WNL, no exudate. Chest: RRR, Normal S1, S2, distal pulses intact. Resp: Expiratory wheezes throughout lung nunez bilaterally, diminished at bases. Musculoskeletal: Normal gait, 5/5 strength to all four extremities. Skin: No suspicious rashes or lesions. Capillary refill less than 2 sec. Neurologic: Cranial nerves II-XII intact. Alert and oriented x 3. DTR's intact. Hematologic/Lymphatic: No ecchymosis, no lymphadenopathy. Course Vital Signs Vital signs: Vital Signs Temperature 36.8 C 01/31/21 08:12 Pulse 79 01/31/21 08:12 Respiratory Rate 16 01/31/21 08:12 Pulse Oximetry 97 01/31/21 08:12 Temperature 36.8 C 01/31/21 08:12 Temperature Source Temporal Artery Scan 01/31/21 08:12 Pulse 79 01/31/21 08:12 Respiratory Rate 16 01/31/21 08:12 Blood Pressure Position Sitting 01/31/21 08:12 Pulse Oximetry 97 01/31/21 08:12 Oxygen Delivery Method Room Air 01/31/21 08:12 Oxygen Flow Rate 0 01/31/21 08:12 Pain Level 4 01/31/21 08:12 Lab/Test Results Lab/Test Results: 01/31/21 08:21 Blood Blood Culture - Pending 01/31/21 08:21 Blood Blood Culture - Pending
[2021-01-31] MEDS: methylPREDNISolone SUCC 125 MG VIAL IVP (08:50)
[2021-01-31 08:51] LABS: Abs Immature Grans 0.04 10^3/uL (0.0-0.06); Absolute Basophil Count 0.04 10^3/uL (0.0-0.2); Absolute Eosinophil Count 0.17 10^3/uL (0.0-0.7); Absolute Lymphocyte Count 1.89 10^3/uL (1.2-3.4); Absolute Neutrophil Count 4.33 10^3/uL (1.2-6.7); Basophils % 0.6; Eosinophils % 2.4; HCT 38.4 % (36.0-46.0); HGB 12.1 g/dL (11.2-15.7); Immature Grans % 0.6; Lymphocytes % 27.1; MCH 30.5 pg (27.0-33.0); MCHC 31.5 % (32.0-36.0); MCV 96.7 fL (80-95); MPV 10.2 fL (8.0-11.0); Monocytes % 7.2; Neutrophils % 62.1; Nucleated RBC 0 %; Platelet Count 291 10^3/uL (130-400); RBC 3.97 10^6/uL (3.93-5.22); RDW 13.7 % (11.7-14.6); RDW-SD 48.8 fL; WBC 6.97 10^3/uL (4.4-10.8)
--- NOTE | 2021-01-31 09:07 | RESPIRATORY ---
RT called to ED for Pt reporting SOB. Initial assessment Pt saturating in high 90s at even respiratory rate. Lung sounds diminished and wheezing. Pt states to RT that pt has been taking Levalbuterol every 2 hours for the past 5 days. Pt states that she is not feeling any relief with the Levalbuterol and that it feels as if it is making her breathing worse. For this reason Levalbuterol was withheld and provider notified.
[2021-01-31 09:13] LABS: ALT 25 U/L (14-59); AST 16 U/L (15-37); Albumin 3.2 g/dL (3.4-5.0); Alkaline Phosphatase 85 U/L (46-116); Anion Gap 8.3 mmol/L (3-11); BUN 17 mg/dL (7-18); Bilirubin, Total 0.8 mg/dL (0.2-1.0); CO2 28.7 mmol/L (21.0-32.0); Calcium 8.4 mg/dL (8.5-10.1); Chloride 105 mmol/L (98-107); Estimated GFR 55.82 (mL/min/1.73m2); Glucose 193 mg/dL (74-106); Sodium 142 mmol/L (136-145); Total Protein 6.4 g/dL (6.4-8.2)
[2021-01-31 09:15] LABS: NT-proBNP 658 pg/mL (<300)
[2021-01-31 09:45] VITALS: BP 152/74; PULSE 79; RESP 15; TEMP 37.1; O2SAT 98
[2021-01-31 09:46] LABS: Troponin I < 0.05 ng/mL (<0.06)
== END 2021-01-31 10:27 | disposition home or self-care (01) ==
PROVIDERS: Emergency Provider Registered Nurse Emergency; PCP Nurse Practitioner
DX: J18.8 Other pneumonia, unspecified organism (principal)
CPT/HCPCS: 36415; 80053; 87040; 93005; 96374; 99284; 71046; 83880; 84484; 85025; 93010; 99283; J2930

== ENCOUNTER 2021-03-26 22:13 | Emergency (ER) | payer MEDICARE, OTHER, SELFPAY ==
[2021-03-26 22:15] VITALS: BP 147/115; PULSE 105; RESP 20; TEMP 36.4; O2SAT 95
--- NOTE | 2021-03-26 22:15 | DI.RAD_ITS ---
Exam(s) XR TIB/FIB RT XR FOOT RT COMPLETE EXAM: XR TIB/FIB RT CLINICAL HISTORY: distal pain TECHNIQUE: COMPARISON: CR,XR XR FOOT RT COMPLETE from 03/26/2021 CR,XR XR FOOT RT COMPLETE from 03/26/2021 FINDINGS: Three views of the ankle and three views of the foot were obtained.. There is a prior resection of t he distal half of the fibula. There is plate and screw fixation of the distal to tibia with an arthr odesis of the tibiotalar joint. No gross fracture or destructive lesion seen involving the ankle or foot.. There appear to be marked degenerative changes of incompletely visualized sub talar and midfo ot articulations. Mild hallux valgus deformity noted. Marked degenerative changes of the joints of the forefoot with a pparent hammertoe deformities of 2nd through 5th toes. If there is a high clinical suspicion of osteomyelitis or fracture, additional evaluation with MR or CT may be considered. IMPRESSION: RADIATION DOSE DELIVERED: Total DLP
--- NOTE | 2021-03-26 22:21 | ED.GENADUL_ITS ---
Discharge Plan Disposition Patient Disposition: HOME Condition: Stable Discharge Details Clinical Impression: Contusion of right foot Primary Care Provider: Chito Brunner ED Provider: Kianna Hooper Home Meds and New Rx's Prescriptions: Continued furosemide 40 MG tablet 40 mg PO DAILY PRNRF: 0 potassium chloride 10 MEQ capsule, extended release 10 meq PO DAILY PRNRF: 0 Lantus U-100 Insulin 100 UNIT/ML solution 42 units Sub-Q DIRECTED RF: 0 albuterol sulfate 3 ML solution for nebulization 1 unit Inhalation QID PRNRF: 0 atorvastatin [Lipitor] 10 MG tablet 10 mg PO DAILY RF: 0 fluconazole 150 MG tablet 150 mg PO .X1 PRNRF: 0 methylprednisolone 4 MG tablet 4 mg PO DAILY RF: 0 amlodipine 5 MG tablet 10 mg PO BID RF: 0 leflunomide [Arava] 20 MG tablet 20 mg PO DAILY RF: 0 esomeprazole magnesium [Nexium] 40 MG capsule,delayed release(DR/EC) 40 mg PO DAILY RF: 0 betamethasone, augmented [Diprolene (augmented)] 50 GM ointment 1 applic Topical DAILY PRNRF: 0 folic acid 1 MG tablet 1 mg PO DAILY RF: 0 montelukast 10 MG tablet 10 mg PO DAILY RF: 0 zolpidem 10 MG tablet 10 mg PO HS RF: 0 calcium carbonate-vitamin D3 [Calcium 600 + D(3)] 1 EACH tablet 1 tab PO BID RF: 0 amitriptyline 25 mg Tablet 25 mg PO DAILY RF: 0 prednisone 20 mg tablet 5 mg PO DAILY RF: 0 metoprolol succinate 50 mg Tablet Extended Release 24 Hr 50 mg PO DAILY RF: 0 aspirin 81 mg Tablet,Chewable 81 mg PO DAILY RF: 0 hydrochlorothiazide 25 mg Tablet 25 mg PO DIRECTED RF: 0 Januvia 50 mg Tablet 50 mg PO DAILY RF: 0 Multi Vitamin 9 mg iron/15 mL Liquid 1 mg PO DAILY RF: 0 hydromorphone 8 mg Tablet 8 mg PO Q6H PRN PRNRF: 0 tizanidine 2 mg Tablet 2 mg PO Q8H PRN PRNRF: 0 lisinopril 10 mg Tablet 10 mg PO DAILY RF: 0 insulin lispro [Humalog KwikPen Insulin] 100 unit/mL Insulin Pen 10 unit SUBCUT 1200 RF: 0 Breo Ellipta 200-25 mcg/dose Blister With Device 2 ea INHALATION QHS RF: 0 Humira 10 mg/0.2 mL Syringe Kit 10 mg SUBCUT RF: 0 albuterol sulfate 0.63 mg/3 mL Solution For Nebulization 2 mg inhalation PRN PRNRF: 0 diazepam [Valium] 2 mg tablet 2 mg PO BID PRN (Reason: back pain) Qty: 20 RF: 0 Narcan 4 mg/actuation spray,non-aerosol 1 spray RICCI ONCE PRN (Reason: opioid overdose) Qty: 2 RF: 0 Discharge Instructions Instructions: Foot Contusion (ED) Additional Instructions: Rest, ice, and elevate the affected area as much as possible. Take 1 tab of Dilaudid every 4-6 hours as needed and directed for pain. Do not take the oxycodone while you are taking the Dilaudid. Continue your steroids and other medication as directed. Call your primary care doctor's office tomorrow to schedule a follow-up appointment for reevaluation this week. If your pain persists or worsens, follow-up with your orthopedist at [facility] or your broacher. Return immediately to the emergency department if you develop any worsening or new concerning symptoms. Discharge Data Discharge Date/Time-TO BE ENTERED AT DEPARTURE: 03/27/21 00:35 Discharge Physician: Kianna Hooper Medical Decision Making <Jaycob Ledesma MD - Last Filed: 03/26/21 22:43> 65-year-old female presents with right foot pain that began after an 80 pound dog jumped on the foot 3 days ago. Since that time she had ongoing right foot pain that is worse with attempts at ambulation. Her history is notable for rheumatoid arthritis for which she is chronically immunosuppressed on prednisone, osteoporosis, as well as chronic pain. She wears either a shoe or fracture boot while ambulating normally at home. She has a history of right ankle fusion as well as occult fractures in the past. Patient arrives to the ER having received fentanyl en route with some improvement of the pain. She is diffusely tender over the right foot. Differential diagnosis includes occult or traumatic fracture, must exclude underlying metabolic disorder. Patient given parenteral analgesia, screening laboratories obtained that she is referred for x-rays. Will sign the patient out to Dr. Hooper change of shift pending her diagnostic evaluation. <Kianna Hooper DO - Last Filed: 03/27/21 02:07> 2300 --please see Dr. Ledesma's note for initial presentation, exam and plan. Case endorsed to follow-up on labs and imaging and final disposition. 0010 --Labs reviewed. Normal white blood cell count. Normal ESR and CRP. Glucose 344 with normal bicarb and anion gap. Imaging reviewed and multiple chronic changes but negative for acute findings. Patient reassessed and her pain improved. She feels okay to go home. Discussed with patient that I recommended giving IV fluids for her hyperglycemia but she declined stating this is not unusual for her and that she ate just prior to her blood draw and that she will drink fluids and take her insulin when she gets home. She also declines recheck of her fingerstick glucose. She denies any acute physical complaints other than her right foot pain. She has remained hemodynamically stable. Patient requests stronger pain medicine for home as her PO steroids/muscle relaxers/anti-inflammatories in addition to her PO oxycodone have not relieved her pain. As she had relief with the Dilaudid here, will send home with a few tabs of p.o. Dilaudid. Patient was advised that she cannot take other sedating medication including her oxycodone while she is taking the Dilaudid due to risk of respiratory depression. Patient understands this risk and agrees with plan. She was given a disc to go for follow-up with her broacher if needed. She was also advised to follow-up with [facility] orthopedics who performed her ankle fusion several years ago if needed for re-evaluation or additional imaging if her pain persists or worsens. Usual and customary return precautions given prior to discharge. Medical Records Medical records reviewed: Yes I reviewed the patient's medical records. Imaging Data Radiologic Study: Radiologist's impression: XR Right Foot Exam date and time: 03/26/2021 10:28 PM Age: 65 years old Clinical indication: Foot; Right; Prior surgery; Patient HX: Dorsal, lateral pain TECHNIQUE: Imaging protocol: XR Right foot. Views: 3 or more views. COMPARISON: CR XR foot RT complete 04/09/2019 8:52 PM FINDINGS: Bones/joints: Bone mineralization appears low. Fracture deformities are noted at the 3rd, 4th, and 5th metatarsals. These are chronic in appearance. There is no displacement observed. Mild collapse and cortical irregularity noted at the 2nd metatarsal head. Mild hallux valgus noted. Irregular juxta-articular erosion noted at the 1st metatarsal. Narrowing present throughout the interphalangeal joints. The tarsometatarsal alignment appears normal. Soft tissues: Moderate soft tissue swelling noted in the forefoot. No evidence of soft tissue air. IMPRESSION: 1. No specific findings of osteomyelitis. 2. Fracture deformities of the 3rd, 4th, and 5th metatarsals are chronic in appearance. 3. Hallux valgus. Gout versus osteoarthritis 1st metatarsophalangeal joint. 4. Mild collapse at the 2nd metatarsal head, likely chronic avascular necrosis. XR Right Tibia and Fibula Exam date and time: 03/26/2021 10:28 PM Age: 65 years old Clinical indication: Lower leg; Right; Prior surgery; Patient HX: Distal pain TECHNIQUE: Imaging protocol: XR Right tibia and fibula. Views: 2 views. COMPARISON: CT LOWER EXTREMITY RT WO 04/10/2019 10:46 AM FINDINGS: Bones/joints: No evidence of fracture. Previous surgery for ankle fusion. Resection of the distal fibula performed. Lateral plate and screws bridge the distal tibia and lateral margin of the talus, intact without lucency or retraction. Narrowing and sclerosis noted at the subtalar joint, not well-characterized. Mild narrowing noted at the medial and lateral compartments of the knee. Soft tissues: Soft tissue swelling is noted throughout the calf. No evidence of soft tissue air. No evidence of foreign bodies, aside from the fusion hardware. Vasculature: Moderate popliteal arterial vascular calcifications noted. IMPRESSION: No acute osseous abnormality. No evidence of osteomyelitis. Postoperative changes at the ankle. 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 Lab Data Lab results reviewed: Yes I reviewed the patient's lab results. Labs: Laboratory Tests Range/Units 03/26/21 03/26/21 03/26/21 22:45 22:45 22:45 WBC (4.4-10.8) 10^3/uL 6.68 RBC (3.93-5.22) 10^6/uL 4.19 Hgb (11.2-15.7) g/dL 12.8 Hct (36.0-46.0) % 40.2 MCV (80-95) fL 95.9 H MCH (27.0-33.0) pg 30.5 MCHC (32.0-36.0) % 31.8 L RDW (11.7-14.6) % 14.9 H Plt Count (130-400) 10^3/uL 305 MPV (8.0-11.0) fL 10.2 Immature Gran % 0.3 Neutrophils % 81.6 Lymphocytes % 15.3 Monocytes % 1.8 Eosinophils % 0.1 Basophils % 0.9 Nucleated RBC % % 0 Absolute Neutrophils (1.2-6.7) 10^3/uL 5.45 Absolute Lymphocytes (1.2-3.4) 10^3/uL 1.02 L Absolute Monocytes (0.1-0.8) 10^3/uL 0.12 Absolute Eosinophils (0.0-0.7) 10^3/uL 0.01 Absolute Basophils (0.0-0.2) 10^3/uL 0.06 ESR (0-30) mm/hr 24 Sodium (136-145) mmol/L 140 Potassium (3.5-5.1) mmol/L 4.2 Chloride (98-107) mmol/L 103 Carbon Dioxide (21.0-32.0) mmol/L 28.6 Anion Gap (3-11) mmol/L 8.4 BUN (7-18) mg/dL 19 H Creatinine (0.55-1.02) mg/dL 1.1 H Estimated GFR/1.73 m2 (mL/min/1.73m2) 50.01 Glucose (74-106) mg/dL 344 H Calcium (8.5-10.1) mg/dL 8.6 Total Bilirubin (0.2-1.0) mg/dL 0.8 AST (15-37) U/L 20 ALT (14-59) U/L 28 Alkaline Phosphatase (46-116) U/L 106 C-Reactive Protein (0.0-0.3) mg/dL 0.24 Total Protein (6.4-8.2) g/dL 6.8 Albumin (3.4-5.0) g/dL 3.4 HPI <Jaycob Ledesma MD - Last Filed: 03/26/21 22:43> General Mode of arrival: ambulatory . Date/Time Provider Initiated Documentation: 03/26/21 22:20 . Limitations to Documentation: no limitations . Information obtained by: patient and EMS . History of Present Illness 65 year old F presents to the emergency department with the chief complaint of Right foot pain for 2 days, described as severe, Quality is described as dull and constant, and is localized to the right and lower extremity. Patient reports no radiation. Patient started experiencing this day(s) and it has been constant. No relieving factors improve symptom(s), Movement worsens symptoms . Patient notes denies fever/chills and rash. Patient did receive the following treatments prior to arrival, other (Oxycodone) Related Data Home Medications Medication Instructions Recorded Confirmed Lantus U-100 Insulin 42 units SUB-Q DIRECTED 01/11/14 03/26/21 albuterol sulfate 1 unit INHALATION QID PRN 01/11/14 03/26/21 amlodipine 10 mg PO BID 01/11/14 03/26/21 atorvastatin [Lipitor] 10 mg PO DAILY 01/11/14 03/26/21 betamethasone, augmented 1 applic TOPICAL DAILY PRN 01/11/14 03/26/21 [Diprolene (augmented)] calcium carbonate-vitamin D3 1 tab PO BID 01/11/14 03/26/21 [Calcium 600 + D(3)] esomeprazole magnesium [Nexium] 40 mg PO DAILY 01/11/14 03/26/21 fluconazole 150 mg PO .X1 PRN 01/11/14 01/31/21 folic acid 1 mg PO DAILY 01/11/14 03/26/21 furosemide 40 mg PO DAILY PRN 01/11/14 03/26/21 leflunomide [Arava] 20 mg PO DAILY 01/11/14 03/26/21 methylprednisolone 4 mg PO DAILY 01/11/14 03/26/21 montelukast 10 mg PO DAILY 01/11/14 03/26/21 potassium chloride 10 meq PO DAILY PRN 01/11/14 03/26/21 zolpidem 10 mg PO HS 01/11/14 03/26/21 Breo Ellipta 2 ea INHALATION QHS 04/09/19 03/26/21 Humira 10 mg SUBCUT 04/09/19 Januvia 50 mg PO DAILY 04/09/19 03/26/21 Multi Vitamin 1 mg PO DAILY 04/09/19 03/26/21 albuterol sulfate 2 mg INHALATION PRN PRN 04/09/19 03/26/21 aspirin 81 mg PO DAILY 04/09/19 01/31/21 hydrochlorothiazide 25 mg PO DIRECTED 04/09/19 03/26/21 hydromorphone 8 mg PO Q6H PRN PRN 04/09/19 01/31/21 insulin lispro [Humalog KwikPen 10 unit SUBCUT 1200 04/09/19 03/26/21 Insulin] lisinopril 10 mg PO DAILY 04/09/19 03/26/21 metoprolol succinate 50 mg PO DAILY 04/09/19 03/26/21 tizanidine 2 mg PO Q8H PRN PRN 04/09/19 03/26/21 Narcan 1 spray RICCI ONCE PRN #2 each 04/11/19 01/31/21 diazepam [Valium] 2 mg PO BID PRN #20 tab 04/11/19 01/31/21 amitriptyline 25 mg PO DAILY 03/26/21 03/26/21 prednisone 5 mg PO DAILY 03/26/21 03/26/21 Previous Rx's Medication Instructions Recorded Narcan 1 spray RICCI ONCE PRN #2 each 04/11/19 diazepam [Valium] 2 mg PO BID PRN #20 tab 04/11/19 Allergies Allergy/AdvReac Type Severity Reaction Status Date / Time clarithromycin [From Biaxin] Allergy Intermediate Skin Rash Unverified 03/26/21 22:20 Penicillins Allergy Intermediate Skin Rash Unverified 03/26/21 22:20 Sulfa (Sulfonamide Allergy Intermediate Skin Rash Unverified 03/26/21 22:20 Antibiotics) capsaicin Allergy Anaphylaxsi Unverified 03/26/21 22:20 s nickel Allergy Unverified 03/26/21 22:20 General Stated Complaint: Orthopedic ARABELLA: 4 Review of Systems <Jaycob Ledesma MD - Last Filed: 03/26/21 22:43> Narrative: No fever or rash She has chronic back pain that is unchanged. No recent illness. 6 systems reviewed and otherwise negative PFSH <Jaycob Ledesma MD - Last Filed: 03/26/21 22:43> Medical History (Updated 03/27/21 @ 00:23 by Kianna Hooper DO) Diabetes mellitus Pain Rheumatoid arthritis Surgical History Status post total left knee replacement Social History Smoking/Tobacco Use Status: Never Smoking risk assessment performed?: Yes Alcohol Intake: current Alcohol Intake frequency: holidays/special occasions only Drug use: Never Do you feel safe at home: Yes Do you feel safe in your relationship?: Yes Exam <Jaycob Ledesma MD - Last Filed: 03/26/21 22:43> Narrative Exam Narrative: GEN: awake, alert, oriented 3. Pleasant, well groomed, interactive. HEAD: Normocephalic, atraumatic EYES: PERRL, EOMI NECK: Full ROM, no HOMAR, no menigismus CHEST/RESP: Nontender, clear to auscultation bilateral, no wheeze/rhonchi/rales CARDIOVASCULAR: Distant, regular, tachycardic, no murmur, rub pooja. 2+ Rad pulse bilateral ABDOMEN: Soft, nontender, no mass. +Bowel sounds EXT: Bilateral 1-2+ symmetric edema. The right foot is tender overlying the dorsal surface and lateral malleolus. Palpable DP bilaterally Neuro: Grossly normal neurologic exam, conversant, interactive. Psych: Speech fluent, thoughts congruent, affect normal Course <Jaycob Ledesma MD - Last Filed: 03/26/21 22:43> Vital Signs Vital signs: Vital Signs Temperature 36.4 C L 03/26/21 22:15 Pulse 105 H 03/26/21 22:15 Respiratory Rate 20 03/26/21 22:15 Blood Pressure 147/115 H 03/26/21 22:15 Pulse Oximetry 95 03/26/21 22:15 Temperature 36.4 C L 03/26/21 22:15 Temperature Source Temporal Artery Scan 03/26/21 22:15 Pulse 105 H 03/26/21 22:15 Respiratory Rate 20 03/26/21 22:15 Respiratory Effort Non-Labored 03/26/21 22:18 Blood Pressure 147/115 H 03/26/21 22:15 Pulse Oximetry 95 03/26/21 22:15 Pain Level 10 03/26/21 22:15 Sign Out <Jaycob Ledesma MD - Last Filed: 03/26/21 22:43> Sign Out Data: Sign Out Comment: Followup labs, XR, response to meds Last updated by Jaycob Ledesma MD at 03/26/21 22:44
[2021-03-26] MEDS: HYDROmorphone 2 MG/ML VIAL IVP (22:33)
[2021-03-26 22:58] LABS: Abs Immature Grans 0.02 10^3/uL (0.0-0.06); Absolute Basophil Count 0.06 10^3/uL (0.0-0.2); Absolute Eosinophil Count 0.01 10^3/uL (0.0-0.7); Absolute Lymphocyte Count 1.02 10^3/uL (1.2-3.4); Absolute Monocyte Count 0.12 10^3/uL (0.1-0.8); Absolute Neutrophil Count 5.45 10^3/uL (1.2-6.7); Basophils % 0.9; Eosinophils % 0.1; HCT 40.2 % (36.0-46.0); HGB 12.8 g/dL (11.2-15.7); Immature Grans % 0.3; Lymphocytes % 15.3; MCH 30.5 pg (27.0-33.0); MCHC 31.8 % (32.0-36.0); MCV 95.9 fL (80-95); MPV 10.2 fL (8.0-11.0); Monocytes % 1.8; Neutrophils % 81.6; Nucleated RBC 0 %; Platelet Count 305 10^3/uL (130-400); RBC 4.19 10^6/uL (3.93-5.22); RDW 14.9 % (11.7-14.6); RDW-SD 52.3 fL; WBC 6.68 10^3/uL (4.4-10.8)
[2021-03-26 23:01] LABS: ESR 24 mm/hr (0-30)
[2021-03-26 23:06] LABS: ALT 28 U/L (14-59); AST 20 U/L (15-37); Albumin 3.4 g/dL (3.4-5.0); Alkaline Phosphatase 106 U/L (46-116); Anion Gap 8.4 mmol/L (3-11); BUN 19 mg/dL (7-18); Bilirubin, Total 0.8 mg/dL (0.2-1.0); C-Reactive Protein 0.24 mg/dL (0.0-0.3); CO2 28.6 mmol/L (21.0-32.0); CREATININE 1.1 mg/dL (0.55-1.02); Calcium 8.6 mg/dL (8.5-10.1); Chloride 103 mmol/L (98-107); Estimated GFR 50.01 (mL/min/1.73m2); Glucose 344 mg/dL (74-106); Potassium 4.2 mmol/L (3.5-5.1); Sodium 140 mmol/L (136-145); Total Protein 6.8 g/dL (6.4-8.2)
[2021-03-27 00:02] VITALS: BP 164/67
--- NOTE | 2021-03-27 00:03 | DI.VRAD_ITS ---
PROCEDURE INFORMATION: Exam: XR Right Tibia and Fibula Exam date and time: 03/26/2021 10:28 PM Age: 65 years old Clinical indication: Lower leg; Right; Prior surgery; Patient HX: Distal pain TECHNIQUE: Imaging protocol: XR Right tibia and fibula. Views: 2 views. COMPARISON: CT LOWER EXTREMITY RT WO 04/10/2019 10:46 AM FINDINGS: Bones/joints: No evidence of fracture. Previous surgery for ankle fusion. Resection of the distal fibula performed. Lateral plate and screws bridge the distal tibia and lateral margin of the talus, intact without lucency or retraction. Narrowing and sclerosis noted at the subtalar joint, not well-characterized. Mild narrowing noted at the medial and lateral compartments of the knee. Soft tissues: Soft tissue swelling is noted throughout the calf. No evidence of soft tissue air. No evidence of foreign bodies, aside from the fusion hardware. Vasculature: Moderate popliteal arterial vascular calcifications noted. IMPRESSION: No acute osseous abnormality. No evidence of osteomyelitis. Postoperative changes at the ankle. 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 Dictated and Authenticated by: Williams Doss MD. Ordering:IBRAHIMA Devries MD
--- NOTE | 2021-03-27 00:06 | DI.VRAD_ITS ---
PROCEDURE INFORMATION: Exam: XR Right Foot Exam date and time: 03/26/2021 10:28 PM Age: 65 years old Clinical indication: Foot; Right; Prior surgery; Patient HX: Dorsal, lateral pain TECHNIQUE: Imaging protocol: XR Right foot. Views: 3 or more views. COMPARISON: CR XR foot RT complete 04/09/2019 8:52 PM FINDINGS: Bones/joints: Bone mineralization appears low. Fracture deformities are noted at the 3rd, 4th, and 5th metatarsals. These are chronic in appearance. There is no displacement observed. Mild collapse and cortical irregularity noted at the 2nd metatarsal head. Mild hallux valgus noted. Irregular juxta-articular erosion noted at the 1st metatarsal. Narrowing present throughout the interphalangeal joints. The tarsometatarsal alignment appears normal. Soft tissues: Moderate soft tissue swelling noted in the forefoot. No evidence of soft tissue air. IMPRESSION: 1. No specific findings of osteomyelitis. 2. Fracture deformities of the 3rd, 4th, and 5th metatarsals are chronic in appearance. 3. Hallux valgus. Gout versus osteoarthritis 1st metatarsophalangeal joint. 4. Mild collapse at the 2nd metatarsal head, likely chronic avascular necrosis. Dictated and Authenticated by: Williams Doss MD. Ordering:IBRAHIMA Devries MD
[2021-03-27] MEDS: HYDROmorphone 2 MG TAB 6 MG PO (00:36)
== END 2021-03-27 00:35 | disposition home or self-care (01) ==
LOC: ER 03-27 00:36
PROVIDERS: Emergency Medicine; Emergency Provider Physician Assistant; PCP Nurse Practitioner
DX: S90.31XA Contusion of right foot, initial encounter (principal); W54.1XXA Struck by dog, initial encounter; M06.9 Rheumatoid arthritis, unspecified; E11.65 Type 2 diabetes mellitus with hyperglycemia; Z79.4 Long term (current) use of insulin; Z79.52 Long term (current) use of systemic steroids
CPT/HCPCS: 36415; 80053; 85652; 96374; 99284; 73590; 73630; 85025; 86140

== ENCOUNTER 2021-04-28 15:20 | Inpatient (IN) | payer MEDICARE, OTHER, SELFPAY ==
[2021-04-28] VITALS (35 sets, daily range): BP systolic 134–246; BP diastolic 57–216; PULSE 73–205; RESP 16–26; TEMP 36.8–39.5; O2SAT 87–99
--- NOTE | 2021-04-28 15:30 | DI.RAD_ITS ---
Exam(s) XR FOOT LT LIMITED EXAM: XR FOOT LT LIMITED CLINICAL HISTORY: fever, redness, ulcer. TECHNIQUE: 2D digital imaging was performed. Two views COMPARISON: CR XR FOOT 3 VIEW LEFT from 10/11/2013 CR,XR XR FOOT RT COMPLETE from 03/26/2021 FINDINGS: The exam is limited by inability of the patient to cooperate. There is marked soft tissue swelling o dany the dorsum of the foot. There is abnormal lucency in the head of the and proximal shaft of the 5th metatarsal seen only on the dorso plantar view. The findings could indicate osteomyelitis. Ther e no foreign bodies. There is sclerosis in the midportion of the 3rd meta tarsal, consistent with ol d fracture seen on 2013 exam. Vascular calcifications are noted. IMPRESSION: Limited exam. Marked soft tissue swelling. Findings are suspicious for osteomyelitis of the 5th met atarsal head. DATA REPOSITORY: RADIATION DOSE DELIVERED:
--- NOTE | 2021-04-28 15:30 | DI.RAD_ITS ---
Exam(s) XR PORTABLE CHEST AP EXAM: XR PORTABLE CHEST AP CLINICAL HISTORY: fever TECHNIQUE: 2D digital imaging was performed. COMPARISON: CR XR CHEST 2V PA LATERAL from 01/31/2021 FINDINGS: The exam is limited by patient positioning and penetration. The patient was unable to cooperate with the exam. Leads overlie the chest. The heart is mildly enlarged, unchanged. There is calcificatio n at the aorta. No focal infiltrates are visible. There is no evidence of effusion or pneumothorax thorax. IMPRESSION: Limited exam. No acute pulmonary findings. DATA REPOSITORY: RADIATION DOSE DELIVERED:
[2021-04-28] MEDS: Normal Saline 1,000 ML 1000 ML IV (15:45)
--- NOTE | 2021-04-28 15:48 | W.ED.GENAD ---
Discharge Plan Disposition Patient Disposition: [facility] INPATIENT Condition: Serious Discharge Details Chief Complaint: Fever Clinical Impression: Sepsis, Bone infection of left foot Primary Care Provider: Chito Brunner ED Provider: Williams Starr Home Meds and New Rx's Prescriptions: No Action furosemide 40 MG tablet 40 mg PO DAILY PRNRF: 0 potassium chloride 10 MEQ capsule, extended release 10 meq PO DAILY PRNRF: 0 Lantus U-100 Insulin 100 UNIT/ML solution 42 units Sub-Q DIRECTED RF: 0 albuterol sulfate 3 ML solution for nebulization 1 unit Inhalation QID PRNRF: 0 atorvastatin [Lipitor] 10 MG tablet 10 mg PO DAILY RF: 0 fluconazole 150 MG tablet 150 mg PO .X1 PRNRF: 0 methylprednisolone 4 MG tablet 4 mg PO DAILY RF: 0 amlodipine 5 MG tablet 10 mg PO BID RF: 0 leflunomide [Arava] 20 MG tablet 20 mg PO DAILY RF: 0 esomeprazole magnesium [Nexium] 40 MG capsule,delayed release(DR/EC) 40 mg PO DAILY RF: 0 betamethasone, augmented [Diprolene (augmented)] 50 GM ointment 1 applic Topical DAILY PRNRF: 0 folic acid 1 MG tablet 1 mg PO DAILY RF: 0 montelukast 10 MG tablet 10 mg PO DAILY RF: 0 zolpidem 10 MG tablet 10 mg PO HS RF: 0 calcium carbonate-vitamin D3 [Calcium 600 + D(3)] 1 EACH tablet 1 tab PO BID RF: 0 amitriptyline 25 mg Tablet 25 mg PO DAILY RF: 0 prednisone 20 mg tablet 5 mg PO DAILY RF: 0 metoprolol succinate 50 mg Tablet Extended Release 24 Hr 50 mg PO DAILY RF: 0 aspirin 81 mg Tablet,Chewable 81 mg PO DAILY RF: 0 hydrochlorothiazide 25 mg Tablet 25 mg PO DIRECTED RF: 0 Januvia 50 mg Tablet 50 mg PO DAILY RF: 0 Multi Vitamin 9 mg iron/15 mL Liquid 1 mg PO DAILY RF: 0 hydromorphone 8 mg Tablet 8 mg PO Q6H PRN PRNRF: 0 tizanidine 2 mg Tablet 2 mg PO Q8H PRN PRNRF: 0 lisinopril 10 mg Tablet 10 mg PO DAILY RF: 0 insulin lispro [Humalog KwikPen Insulin] 100 unit/mL Insulin Pen 10 unit SUBCUT 1200 RF: 0 Breo Ellipta 200-25 mcg/dose Blister With Device 2 ea INHALATION QHS RF: 0 Humira 10 mg/0.2 mL Syringe Kit 10 mg SUBCUT RF: 0 albuterol sulfate 0.63 mg/3 mL Solution For Nebulization 2 mg inhalation PRN PRNRF: 0 diazepam [Valium] 2 mg tablet 2 mg PO BID PRN (Reason: back pain) Qty: 20 RF: 0 Narcan 4 mg/actuation spray,non-aerosol 1 spray RICCI ONCE PRN (Reason: opioid overdose) Qty: 2 RF: 0 Medical Decision Making 65 yo female with history of rheumatoid arthritis on immunosuppressive therapy, DM, who comes in with rigors and subjective fevers since yesterday. SHe is caox4 but does have some evidence of confusion during exam (for example when I ask if she has had burning with urination she will answer yes but then asked again she says no and also answered with at the hospital). She denies cough, headache, neck stiffness, abdomen pain, chest pain. She has a walking boot on her right leg when she arrived with ems and states its due to necrosis. She does on exam have an ulceration over the medial malleolus with surrouding erythema and her foot does feel warm. She is noted to be febrile here, will obtain labs, cultures, cxr, foot xray and initiate treatment for sepsis with vanco and ceftriaxone to cover for skin infection. She has no tunneling of the wound so doubt osteo at this time pt stable, spoke with her and he states this morning she was well, then he left and came back and found her confused and with rigors. LABs show mild increase in wbc, lactate and low mag, xray of the foot shows possible osteo. Discussed with hospitalist who accepts for IV abx Differential Diagnosis Differential Diagnosis: sepsis, skin infection, uti Imaging Data Radiologic Study: Attestation: I personally reviewed and interpreted this imaging study as follows: Imaging: X-Ray Radiologist's impression: IMPRESSION: Abnormal changes involving the 3rd and 5th metatarsals of concern for osteomyelitis. Soft tissue swelling suggests associated cellulitis Radiologic Study #2: Attestation: I personally reviewed and interpreted this imaging study as follows: Imaging: X-Ray My impression: no acute findings cxr Lab Data Lab results reviewed: Yes I reviewed the patient's lab results. HPI General Mode of arrival: EMS. Date/Time Provider Initiated Documentation: 04/28/21 15:22. Limitations to Documentation: altered mental status (mild confusion). Information obtained by: patient and EMS. History of Present Illness 65 year old F presents to the emergency department with the chief complaint of rigors, described as moderate, Patient started experiencing this day(s) (1) and it has been constant. No relieving factors improve symptom(s), No exacerbating factors reported . Patient notes fever/chills; denies cough and shortness of breath. Patient did receive the following treatments prior to arrival, none Related Data Home Medications Medication Instructions Recorded Confirmed Lantus U-100 Insulin 42 units SUB-Q DIRECTED 01/11/14 03/26/21 albuterol sulfate 1 unit INHALATION QID PRN 01/11/14 03/26/21 amlodipine 10 mg PO BID 01/11/14 03/26/21 atorvastatin [Lipitor] 10 mg PO DAILY 01/11/14 03/26/21 betamethasone, augmented 1 applic TOPICAL DAILY PRN 01/11/14 03/26/21 [Diprolene (augmented)] calcium carbonate-vitamin D3 1 tab PO BID 01/11/14 03/26/21 [Calcium 600 + D(3)] esomeprazole magnesium [Nexium] 40 mg PO DAILY 01/11/14 03/26/21 fluconazole 150 mg PO .X1 PRN 01/11/14 04/28/21 folic acid 1 mg PO DAILY 01/11/14 04/28/21 furosemide 40 mg PO DAILY PRN 01/11/14 04/28/21 leflunomide [Arava] 20 mg PO DAILY 01/11/14 04/28/21 methylprednisolone 4 mg PO DAILY 01/11/14 04/28/21 montelukast 10 mg PO DAILY 01/11/14 04/28/21 potassium chloride 10 meq PO DAILY PRN 01/11/14 04/28/21 zolpidem 10 mg PO HS 01/11/14 04/28/21 Breo Ellipta 2 ea INHALATION QHS 04/09/19 03/26/21 Humira 10 mg SUBCUT 04/09/19 Januvia 50 mg PO DAILY 04/09/19 03/26/21 Multi Vitamin 1 mg PO DAILY 04/09/19 03/26/21 albuterol sulfate 2 mg INHALATION PRN PRN 04/09/19 03/26/21 aspirin 81 mg PO DAILY 04/09/19 01/31/21 hydrochlorothiazide 25 mg PO DIRECTED 04/09/19 04/28/21 hydromorphone 8 mg PO Q6H PRN PRN 04/09/19 04/28/21 insulin lispro [Humalog KwikPen 10 unit SUBCUT 1200 04/09/19 04/28/21 Insulin] lisinopril 10 mg PO DAILY 04/09/19 04/28/21 metoprolol succinate 50 mg PO DAILY 04/09/19 04/28/21 tizanidine 2 mg PO Q8H PRN PRN 04/09/19 04/28/21 Narcan 1 spray RICCI ONCE PRN #2 each 04/11/19 01/31/21 diazepam [Valium] 2 mg PO BID PRN #20 tab 04/11/19 01/31/21 amitriptyline 25 mg PO DAILY 03/26/21 03/26/21 prednisone 5 mg PO DAILY 03/26/21 04/28/21 Previous Rx's Medication Instructions Recorded Narcan 1 spray RICCI ONCE PRN #2 each 04/11/19 diazepam [Valium] 2 mg PO BID PRN #20 tab 04/11/19 Allergies Allergy/AdvReac Type Severity Reaction Status Date / Time clarithromycin [From Biaxin] Allergy Intermediate Skin Rash Unverified 04/28/21 16:25 Penicillins Allergy Intermediate Skin Rash Unverified 04/28/21 16:25 Sulfa (Sulfonamide Allergy Intermediate Skin Rash Unverified 04/28/21 16:25 Antibiotics) capsaicin Allergy Anaphylaxsi Unverified 04/28/21 16:25 s nickel Allergy Unverified 04/28/21 16:25 General ARABELLA: 4 Review of Systems All systems reviewed & are unremarkable except as noted in HPI and below Eyes Eyes: Denies loss of vision ENT Ears, Nose, Mouth, and Throat: Denies change in voice Cardiovascular Cardiovascular: Denies chest pain and Denies dyspnea Respiratory Respiratory: Denies cough and Denies dyspnea Gastrointestinal Gastrointestinal: Denies abdominal pain and Denies vomiting Neurologic Neurologic: Denies loss of vision [facility] Medical History (Updated 04/28/21 @ 17:20 by Williams Starr MD) Diabetes mellitus Pain Rheumatoid arthritis Surgical History Status post total left knee replacement Social History Smoking/Tobacco Use Status: Never Smoking risk assessment performed?: Yes Alcohol Intake: current Alcohol Intake frequency: holidays/special occasions only Drug use: Never Do you feel safe at home: Yes Do you feel safe in your relationship?: Yes Exam Const General: no acute distress Orientation: alert HENMT Head: normal to inspection Ears: external ears normal General nose exam: external nose normal Mouth: moist mucous membranes Eyes General: appearance normal, both eyes and all related structures Neck Neck: normal visual inspection Resp Effort & Inspection: normal respiratory effort and able to speak in complete sentences Cardio Rate: regular rate Skin General skin exam: elasticity normal Neuro General: patient alert and patient oriented x3 Extrem General: normal to inspection Course Lab/Test Results Lab/Test Results: 04/28/21 15:44 Urine - Cath Straight Urine Culture - Pending 04/28/21 15:27 Blood Blood Culture - Pending 04/28/21 15:27 Blood Blood Culture - Pending
[2021-04-28 16:07] LABS: Source Nasal/Nares
[2021-04-28 16:08] LABS: Abs Immature Grans 0.06 10^3/uL (0.0-0.06); Absolute Basophil Count 0.13 10^3/uL (0.0-0.2); Absolute Eosinophil Count 0.14 10^3/uL (0.0-0.7); Absolute Monocyte Count 0.77 10^3/uL (0.1-0.8); Absolute Neutrophil Count 9.44 10^3/uL (1.2-6.7); Eosinophils % 1.1; HCT 38.8 % (36.0-46.0); HGB 12.1 g/dL (11.2-15.7); Immature Grans % 0.5; Lymphocytes % 17.8; MCH 29.9 pg (27.0-33.0); MCHC 31.2 % (32.0-36.0); MCV 95.8 fL (80-95); MPV 10.7 fL (8.0-11.0); Neutrophils % 73.6; Nucleated RBC 0 %; Platelet Count 225 10^3/uL (130-400); RBC 4.05 10^6/uL (3.93-5.22); RDW 14.1 % (11.7-14.6); RDW-SD 49.2 fL; WBC 12.83 10^3/uL (4.4-10.8)
[2021-04-28 16:10] LABS: Lactate 2.3 mmol/L (0.6-1.4)
[2021-04-28 16:19] LABS: Absolute Lymphocyte Count 2.28 10^3/uL (1.2-3.4)
[2021-04-28 16:22] LABS: Magnesium 1.4 mg/dL (1.8-2.4)
[2021-04-28 16:25] LABS: ALT 40 U/L (14-59); AST 44 U/L (15-37); Albumin 3.5 g/dL (3.4-5.0); Alkaline Phosphatase 86 U/L (46-116); Anion Gap 7.6 mmol/L (3-11); BUN 14 mg/dL (7-18); Bilirubin, Total 1.1 mg/dL (0.2-1.0); CO2 29.4 mmol/L (21.0-32.0); Calcium 8.5 mg/dL (8.5-10.1); Chloride 103 mmol/L (98-107); Estimated GFR 55.82 (mL/min/1.73m2); Glucose 171 mg/dL (74-106); Potassium 3.7 mmol/L (3.5-5.1); Sodium 140 mmol/L (136-145); Total Protein 6.6 g/dL (6.4-8.2)
[2021-04-28 16:36] LABS: TSH (W/Ref FT4) 1.38 uIU/mL (0.36-3.74)
[2021-04-28] MEDS: cefTRIAXone 2 GM/50 ML BAG IVPB (16:37)
[2021-04-28 16:42] LABS: Bilirubin Negative (Negative); Blood Trace-intact (Negative); Clarity Clear (Clear); Glucose Negative (Negative); Ketones 15 mg/dL (Negative); Leukocyte Esterase Negative (Negative); Nitrite Negative (Negative); Specific Gravity 1.025 (1.005-1.025); Urobilinogen 0.2 EU/dL (Up TO 0.2)
[2021-04-28 16:50] LABS: Procalcitonin 0.2 ng/mL
[2021-04-28] MEDS: VANCOMYCIN 1,500 MG in Normal Saline 250 ML 166.6666 MG IVPB (16:50)
[2021-04-28] MEDS: HYDROmorphone 2 MG/ML VIAL 1 MG IVP (16:55)
[2021-04-28 17:00] LABS: Bacteria Few HPF (Negative); C & S Indicated? C&S Done As Ordered; Casts Negative LPF (Negative); Crystals Negative HPF (Negative); Epithelial Cells Few HPF (Negative); Mucus Moderate (Negative); RBC 0-2 HPF (0-2)
[2021-04-28] MEDS: MAGNESIUM SULFATE 2 GM/50 ML BAG IVPB (17:00)
[2021-04-28 17:06] LABS: COVID-19 PCR Negative (Negative)
[2021-04-28] MEDS: Normal Saline Flush 10 ML SYR IVP ×2 (17:07→20:23)
--- NOTE | 2021-04-28 17:09 | DI.VRAD_ITS ---
PROCEDURE INFORMATION: Exam: XR Left Foot Exam date and time: 04/28/2021 3:44 PM Age: 65 years old Clinical indication: Other: Redness, fever TECHNIQUE: Imaging protocol: XR Left foot. Views: 1 or 2 views. COMPARISON: No relevant prior studies available. FINDINGS: Bones/joints: See Soft tissues finding. Soft tissues: There is significant soft tissue swelling particularly at the mid foot level. There is some relative lucency of the distal aspect of the 5th metatarsal with periosteal reaction of the metatarsal shaft. Osteosclerosis involves the 3rd metatarsal shaft. There is some irregularity of the medial aspect of the talus, possible osteochondral injury. IMPRESSION: Abnormal changes involving the 3rd and 5th metatarsals of concern for osteomyelitis. Soft tissue swelling suggests associated cellulitis. Dictated and Authenticated by: Kelly Francis MD. Ordering:MABEL Kramer MD
--- NOTE | 2021-04-28 17:13 | W.PM.HP.N ---
Date of service: 04/28/21 Time of Service: 17:13 Assessment and Plan Assessment and plan (1) Cellulitis and abscess of foot: Start date: 04/28/21 Status: Acute Assessment and plan: This is a 65-year-old lady presenting with rigors, fever and change in mental status with elevated WBC, C-reactive protein and lactate with probable source of infection being her right ankle with a question of osteomyelitis by x-ray though these may be old bony changes over the metatarsal with the source of infection more likely an abscess with associated small ulceration over her medial ankle from friction wearing a walking boot recently because of her metatarsal bone pain and changes on chronic steroids. Blood cultures were performed with early growth of gram-positive cocci indicating bacteremia. She is on appropriate antibiotic therapy with high-dose Rocephin 2 g IV daily and vancomycin pharmacy dosing. Patient is improving with mental status and less rigors and fever on IV antibiotic therapy. She is immunocompromised with rheumatoid arthritis and chronic prednisone therapy. She will be given stress steroid treatment with hydrocortisone 100 mg IV every 8 hours. Long-term IV antibiotic therapy and then oral antibiotic therapy needs to be adjusted to blood culture pathogen and sensitivities as well as deciding whether she has bony involvement now with bacteremia and already compromised metatarsal bones in the right foot. (2) Osteomyelitis of foot, acute: Start date: 04/28/21 Status: Acute Assessment and plan: Question of osteomyelitis needs to be further dilated possibly with MRI or bone scan before stopping antibiotic therapy for her acute infectious process. She does have gram-positive cocci growing in her blood within 12 hours of blood draw. She is on appropriate IV antibiotic therapy for now. (3) Rheumatoid arthritis: Status: Chronic Assessment and plan: Patient was on Humira but now is on Arava and is chronically on dexamethasone with pulses of prednisone is needed. She will be given stress steroids during her acute infectious process and stress of her bacteremia as discussed above. Qualifiers: Rheumatoid arthritis location: multiple sites Rheumatoid factor presence: unspecified presence Qualified Code(s): M06.9 - Rheumatoid arthritis, unspecified (4) Diabetes mellitus: Status: Chronic Assessment and plan: Patient is on multiple medical therapy and will be placed on glucometer covered with short acting insulin while in the hospital. This may be exacerbated by the use of IV stress steroid treatment. 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 She was normal when he had left her the morning of the same day. She does have a history of rheumatoid arthritis along with psoriatic arthritis on immunosuppressive therapy with Arava and daily dexamethasone as well as pulses of prednisone with flares. She recently did end up also prednisone. She walks with a walking boot over her right foot secondary to bony changes from bone thinning with her treatments. She does look cushingoid with chronic steroid therapy. She is obese. She recently had fevers with rigors for 1 day prior to presentation and as stated increased confusion the day of presentation. In the ED she continued with some slight confusion Ms. answering questions with repeated questioning and she denied any pain, headache or neck stiffness as well as any abdominal complaints. She did not have any urinary complaints. As stated the patient was a poor historian being confused upon admission. The time I saw the patient she has had some IV hydration and treatment for fever and she was less confused. She states that her right ankle has been problematic for some time with necrosis of the bone in her foot as stated from chronic steroid use. The ulcer over her medial ankle was new. She denies any pain in that area. Was described as having surrounding erythema with erythema tracking up into her leg from the ankle area. Review of Systems Narrative: 13 point review of systems otherwise unrevealing or stable. Patient has problems ambulating secondary to her feet edema and recent bony changes in her right foot. [facility] Medical History (Updated 04/29/21 @ 09:50 by Aydin De Los Santos) Diabetes mellitus Pain Rheumatoid arthritis Surgical History Status post total left knee replacement Social History Smoking/Tobacco Use Status: Never Smoking risk assessment performed?: Yes Alcohol Intake: current Alcohol Intake frequency: holidays/special occasions only Drug use: Never Do you feel safe at home: Yes Do you feel safe in your relationship?: Yes Meds Allergies and Home Medications Allergies Allergy/AdvReac Type Severity Reaction Status Date / Time clarithromycin [From Biaxin] Allergy Intermediate Skin Rash Unverified 04/28/21 16:25 Penicillins Allergy Intermediate Skin Rash Unverified 04/28/21 16:25 Sulfa (Sulfonamide Allergy Intermediate Skin Rash Unverified 04/28/21 16:25 Antibiotics) capsaicin Allergy Anaphylaxsi Unverified 04/28/21 16:25 s nickel Allergy Unverified 04/28/21 16:25 Home Medications Medication Instructions Recorded Confirmed Type Lantus U-100 Insulin 42 units SUB-Q DIRECTED 01/11/14 04/29/21 History albuterol sulfate 1 unit INHALATION QID PRN 01/11/14 04/29/21 History amlodipine 10 mg PO BID 01/11/14 04/29/21 History atorvastatin [Lipitor] 10 mg PO DAILY 01/11/14 04/29/21 History betamethasone, augmented 1 applic TOPICAL DAILY PRN 01/11/14 04/29/21 History [Diprolene (augmented)] calcium carbonate-vitamin D3 1 tab PO BID 01/11/14 04/29/21 History [Calcium 600 + D(3)] esomeprazole magnesium [Nexium] 40 mg PO DAILY 01/11/14 04/29/21 History fluconazole 150 mg PO .X1 PRN 01/11/14 04/28/21 History folic acid 1 mg PO DAILY 01/11/14 04/28/21 History furosemide 40 mg PO DAILY PRN 01/11/14 04/28/21 History leflunomide [Arava] 20 mg PO DAILY 01/11/14 04/28/21 History methylprednisolone 4 mg PO DAILY 01/11/14 04/28/21 History montelukast 10 mg PO DAILY 01/11/14 04/28/21 History potassium chloride 10 meq PO DAILY PRN 01/11/14 04/28/21 History zolpidem 10 mg PO HS 01/11/14 04/28/21 History Breo Ellipta 2 ea INHALATION QHS 04/09/19 04/29/21 History Humira 10 mg SUBCUT 04/09/19 History Januvia 50 mg PO DAILY 04/09/19 04/29/21 History Multi Vitamin 1 mg PO DAILY 04/09/19 04/29/21 History albuterol sulfate 2 mg INHALATION PRN PRN 04/09/19 04/29/21 History aspirin 81 mg PO DAILY 04/09/19 04/29/21 History hydrochlorothiazide 25 mg PO DIRECTED 04/09/19 04/28/21 History hydromorphone 8 mg PO Q6H PRN PRN 04/09/19 04/28/21 History insulin lispro [Humalog KwikPen 10 unit SUBCUT 1200 04/09/19 04/28/21 History Insulin] lisinopril 10 mg PO DAILY 04/09/19 04/28/21 History metoprolol succinate 50 mg PO DAILY 04/09/19 04/28/21 History tizanidine 2 mg PO Q8H PRN PRN 04/09/19 04/28/21 History Narcan 1 spray RICCI ONCE PRN #2 each 04/11/19 04/29/21 Rx diazepam [Valium] 2 mg PO BID PRN #20 tab 04/11/19 04/29/21 Rx amitriptyline 25 mg PO DAILY 03/26/21 04/29/21 History prednisone 5 mg PO DAILY 03/26/21 04/28/21 History Exam Narrative Exam Narrative: General: Patient appears older than stated age, morbidly obese with diffuse body swelling and cushingoid appearance with rivero facies, alert and oriented to person place at least. She is in no acute distress. HEENT: Normocephalic, face with coarsened features and rivero facies. Eyes with pupils equal and reactive light symmetrically, extraocular movement intact and sclera anicteric. Oropharynx with dry mucosa. Neck: Supple without JVD. Back: Kyphotic with no CVA tenderness. Lungs: Clear to auscultation and percussion. Fair aeration. Breast: Exam deferred. Heart: Regular rate and rhythm with no murmurs or gallops appreciated. Abdomen: Obese contour, soft nontender to palpation with no palpable hepatosplenomegaly. Bowel sounds positive all quadrants. Genitalia/rectal: Exam deferred. Skin: Pale, warm and dry. Thick skin over most of the body with fair turgor. Rough texture. Extremities: Without clubbing or cyanosis. Diffuse nonpitting edema over upper and lower extremities with peripheral pulses intact. Right ankle with 0.5.appearance ulceration which is dry over the medial malleolus with surrounding erythema which extends up into the ankle. All joints have decreased range of motion and chronic arthritic changes with no acute erythema or increased warmth to touch over the joints. Neuro: Cranial 2-12 grossly intact, no focalizing motor deficits. Psych: Flattened affect with depressed mood, no abnormal thought processes. Remote and recent memory grossly intact. Results Imaging Imaging Studies: Exam: XR Chest Exam date and time: 04/28/2021 3:44 PM Age: 65 years old Clinical indication: Fever TECHNIQUE: Imaging protocol: XR of the chest. Views: 1 view. Other technique: Portable exam. COMPARISON: No relevant prior studies available. FINDINGS: Lungs: Unremarkable. No consolidation. Pleural spaces: Unremarkable. No pleural effusion. No pneumothorax. Heart/Mediastinum: Cardiomegaly. Vasculature: There is aortic distension with poor definition of the descending aorta. Bones/joints: Unremarkable. Other findings: The technologist has documented the images are left right mislabeled. The patient is rotated to the left. IMPRESSION: 1. Poor definition of the aorta possibly artifactual due to rotation. Repeat assessment with PA and lateral technique recommended when the patient is able to cooperate. 2. Cardiomegaly. 3. Provided images are left right mislabeled. Dictated and Authenticated by: Kelly Francis MD. Exam: XR Left Foot Exam date and time: 04/28/2021 3:44 PM Age: 65 years old Clinical indication: Other: Redness, fever TECHNIQUE: Imaging protocol: XR Left foot. Views: 1 or 2 views. COMPARISON: No relevant prior studies available. FINDINGS: Bones/joints: See Soft tissues finding. Soft tissues: There is significant soft tissue swelling particularly at the mid foot level. There is some relative lucency of the distal aspect of the 5th metatarsal with periosteal reaction of the metatarsal shaft. Osteosclerosis involves the 3rd metatarsal shaft. There is some irregularity of the medial aspect of the talus, possible osteochondral injury. IMPRESSION: Abnormal changes involving the 3rd and 5th metatarsals of concern for osteomyelitis. Soft tissue swelling suggests associated cellulitis. Dictated and Authenticated by: Kelly Francis MD. Labs Result diagrams: 04/29/21 07:39 04/29/21 07:39 Labs: Laboratory Results - last 24 hr 04/28/21 04/28/21 04/28/21 15:40 15:40 15:40 WBC RBC Hgb Hct MCV MCH MCHC RDW Plt Count MPV Immature Gran % Neutrophils % Lymphocytes % Monocytes % Eosinophils % Basophils % Nucleated RBC % Absolute Neutrophils Absolute Lymphocytes Absolute Monocytes Absolute Eosinophils Absolute Basophils VBG Lactate Sodium 140 Potassium 3.7 Chloride 103 Carbon Dioxide 29.4 Anion Gap 7.6 BUN 14 Creatinine 1.0 Estimated GFR/1.73 m2 55.82 Glucose 171 H Calcium 8.5 Magnesium 1.4 L Total Bilirubin 1.1 H AST 44 H ALT 40 Alkaline Phosphatase 86 Total Protein 6.6 Albumin 3.5 Procalcitonin TSH 1.38 Urine Color Urine Clarity Urine pH Ur Specific [place] Urine Protein Urine Ketones Urine Blood Urine Nitrite Urine Bilirubin Urine Urobilinogen Ur Leukocyte Esterase Urine RBC Urine WBC Ur Epithelial Cells Urine Crystals Urine Bacteria Urine Casts Urine Mucus Ur Culture Indicated? Urine Glucose COVID-19 Source 04/28/21 04/28/21 04/28/21 15:40 15:40 15:55 WBC 12.83 H RBC 4.05 Hgb 12.1 Hct 38.8 MCV 95.8 H MCH 29.9 MCHC 31.2 L RDW 14.1 Plt Count 225 MPV 10.7 Immature Gran % 0.5 Neutrophils % 73.6 Lymphocytes % 17.8 Monocytes % 6.0 Eosinophils % 1.1 Basophils % 1.0 Nucleated RBC % 0 Absolute Neutrophils 9.44 H Absolute Lymphocytes 2.28 Absolute Monocytes 0.77 Absolute Eosinophils 0.14 Absolute Basophils 0.13 VBG Lactate 2.3 H* Sodium Potassium Chloride Carbon Dioxide Anion Gap BUN Creatinine Estimated GFR/1.73 m2 Glucose Calcium Magnesium Total Bilirubin AST ALT Alkaline Phosphatase Total Protein Albumin Procalcitonin 0.2 TSH Urine Color Yellow Urine Clarity Clear Urine pH 7.0 Ur Specific [place] 1.025 Urine Protein 100 H Urine Ketones 15 H Urine Blood Trace-intact H Urine Nitrite Negative Urine Bilirubin Negative Urine Urobilinogen 0.2 Ur Leukocyte Esterase Negative Urine RBC 0-2 Urine WBC 3-5 Ur Epithelial Cells Few Urine Crystals Negative Urine Bacteria Few Urine Casts Negative Urine Mucus Moderate Ur Culture Indicated? C&S Done As Ordered Urine Glucose Negative COVID-19 Source 04/28/21 16:00 WBC RBC Hgb Hct MCV MCH MCHC RDW Plt Count MPV Immature Gran % Neutrophils % Lymphocytes % Monocytes % Eosinophils % Basophils % Nucleated RBC % Absolute Neutrophils Absolute Lymphocytes Absolute Monocytes Absolute Eosinophils Absolute Basophils VBG Lactate Sodium Potassium Chloride Carbon Dioxide Anion Gap BUN Creatinine Estimated GFR/1.73 m2 Glucose Calcium Magnesium Total Bilirubin AST ALT Alkaline Phosphatase Total Protein Albumin Procalcitonin TSH Urine Color Urine Clarity Urine pH Ur Specific [place] Urine Protein Urine Ketones Urine Blood Urine Nitrite Urine Bilirubin Urine Urobilinogen Ur Leukocyte Esterase Urine RBC Urine WBC Ur Epithelial Cells Urine Crystals Urine Bacteria Urine Casts Urine Mucus Ur Culture Indicated? Urine Glucose COVID-19 Source Nasal/Nares Last Vital Signs Temp 39.5 C H 04/28/21 16:02 Pulse 121 H 04/28/21 16:02 Resp 120 H 04/28/21 16:02 BP 143/78 H 04/28/21 16:02 Pulse Ox 92 04/28/21 16:02
[2021-04-28] MEDS: Acetaminophen 325 MG TAB 650 MG PO (18:32)
[2021-04-28] MEDS: Normal Saline 1,000 ML 125 ML IV (18:39)
--- NOTE | 2021-04-28 18:41 | DI.VRAD_ITS ---
PROCEDURE INFORMATION: Exam: XR Chest Exam date and time: 04/28/2021 3:44 PM Age: 65 years old Clinical indication: Fever TECHNIQUE: Imaging protocol: XR of the chest. Views: 1 view. Other technique: Portable exam. COMPARISON: No relevant prior studies available. FINDINGS: Lungs: Unremarkable. No consolidation. Pleural spaces: Unremarkable. No pleural effusion. No pneumothorax. Heart/Mediastinum: Cardiomegaly. Vasculature: There is aortic distension with poor definition of the descending aorta. Bones/joints: Unremarkable. Other findings: The technologist has documented the images are left right mislabeled. The patient is rotated to the left. IMPRESSION: 1. Poor definition of the aorta possibly artifactual due to rotation. Repeat assessment with PA and lateral technique recommended when the patient is able to cooperate. 2. Cardiomegaly. 3. Provided images are left right mislabeled. Dictated and Authenticated by: Kelly Francis MD. Ordering:MABEL Kramer MD
[2021-04-28 19:41] LABS: C-Reactive Protein 3.28 mg/dL (0.0-0.3)
[2021-04-28] MEDS: Hydrocortisone SOD SUC. 100 MG VIAL (20:22)
[2021-04-28] MEDS: Zolpidem 10 MG TAB PO (21:44)
[2021-04-28] MEDS: Metoprolol 25 MG TAB PO (21:44)
[2021-04-28] MEDS: Heparin 5,000 UNITS/ML VIAL 5000 UNITS SC (21:44)
[2021-04-28] MEDS: Atorvastatin 10 MG TAB PO (21:44)
[2021-04-28] MEDS: Montelukast 10 MG TAB PO (21:44)
[2021-04-29] VITALS (7 sets, daily range): BP systolic 130–160; BP diastolic 62–78; PULSE 78–91; RESP 16–20; TEMP 36.7–37.5; O2SAT 93–98
[2021-04-29] MEDS: Normal Saline 1,000 ML 125 ML IV ×2 (02:16→11:57)
[2021-04-29] MEDS: VANCOMYCIN 1,500 MG in Normal Saline 250 ML 167 MG IV (02:52)
[2021-04-29] MEDS: Hydrocortisone SOD SUC. 100 MG VIAL IVP ×3 (05:46→21:30)
[2021-04-29] MEDS: Heparin 5,000 UNITS/ML VIAL 5000 UNITS SC ×3 (05:47→21:30)
[2021-04-29] MEDS: Metoprolol 25 MG TAB PO ×3 (05:47→21:31)
[2021-04-29 07:45] LABS: Lactate 1.3 mmol/L (0.6-1.4)
[2021-04-29 08:08] LABS: Abs Immature Grans 0.04 10^3/uL (0.0-0.06); Absolute Basophil Count 0.03 10^3/uL (0.0-0.2); Absolute Lymphocyte Count 0.93 10^3/uL (1.2-3.4); Absolute Monocyte Count 0.27 10^3/uL (0.1-0.8); Absolute Neutrophil Count 7.43 10^3/uL (1.2-6.7); Basophils % 0.3; HCT 33.3 % (36.0-46.0); HGB 10.8 g/dL (11.2-15.7); Immature Grans % 0.5; Lymphocytes % 10.7; MCH 30.3 pg (27.0-33.0); MCHC 32.4 % (32.0-36.0); MCV 93.5 fL (80-95); MPV 10.4 fL (8.0-11.0); Monocytes % 3.1; Neutrophils % 85.4; Nucleated RBC 0 %; Platelet Count 205 10^3/uL (130-400); RBC 3.56 10^6/uL (3.93-5.22); RDW 14.3 % (11.7-14.6); RDW-SD 48.7 fL
[2021-04-29 08:09] LABS: ALT 36 U/L (14-59); AST 37 U/L (15-37); Albumin 2.5 g/dL (3.4-5.0); Alkaline Phosphatase 63 U/L (46-116); Anion Gap 5.8 mmol/L (3-11); BUN 14 mg/dL (7-18); Bilirubin, Total 0.8 mg/dL (0.2-1.0); CO2 28.2 mmol/L (21.0-32.0); CREATININE 0.9 mg/dL (0.55-1.02); Calcium 7.7 mg/dL (8.5-10.1); Chloride 106 mmol/L (98-107); Glucose 187 mg/dL (74-106); Potassium 4.1 mmol/L (3.5-5.1); Sodium 140 mmol/L (136-145); Total Protein 5.4 g/dL (6.4-8.2)
[2021-04-29 08:17] LABS: C-Reactive Protein 19.79 mg/dL (0.0-0.3)
[2021-04-29 08:18] LABS: Magnesium 1.8 mg/dL (1.8-2.4)
[2021-04-29] MEDS: Budesonide/Formoterol 160/4.5 6 GM 60 PUFF INH IH ×2 (08:45→21:32)
[2021-04-29] MEDS: Normal Saline Flush 10 ML SYR IVP (09:00)
[2021-04-29] MEDS: Pantoprazole 40 MG VIAL IVP (09:00)
[2021-04-29] MEDS: Aspirin 81 MG CHEW PO (09:01)
[2021-04-29] MEDS: Acetaminophen 325 MG TAB 650 MG PO (09:01)
[2021-04-29] MEDS: Potassium Chloride 10 MEQ CAPCR PO (09:02)
[2021-04-29] MEDS: Amitriptyline 25 MG TAB PO (09:02)
[2021-04-29] MEDS: Insulin Aspart 300 UNITS/3 ML PEN SC ×5 (09:02→17:19)
[2021-04-29] MEDS: Lisinopril 10 MG TAB PO (09:02)
[2021-04-29] MEDS: hydroCHLOROthiazide 25 MG TAB PO (09:02)
[2021-04-29] MEDS: Folic Acid 1 MG TAB PO (09:04)
--- NOTE | 2021-04-29 10:45 | INITIAL_ITS ---
- If Service Date Differs Date of service: 04/29/21 Time of Service: 10:45 Care Management Initial Assess REASON FOR HOSPITALIZATION:: Cellulitis and abscess of foot PAST MEDICAL HISTORY/PAST SURGICAL HISTORY:: Medical History (Updated 04/29/21 @ 09:50 by Aydin De Los Santos). Diabetes mellitus. Pain. Rheumatoid arthritis. Surgical History . Status post total left knee replacement PREVIOUS FUNCTIONAL STATUS/SOCIAL/FAMILY SUPPORTS:: Michelle lives in [place], [place] with her Albino. 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 She receives no community services. CURRENT FUNCTIONAL STATUS:: Michelle was sitting up in bed visiting with her when CM met with her. She was pleasant and cooperative with the assessment and agreeable to conversation. She talked a bit about her career and which jobs she found the most and least enjoyable. She does not anticipate needing any new services at discharge at this point. ADVANCE DIRECTIVES:: has none. provided with 2 copies of the AD forms at her request. Has patient been provided with info about the portal/API?: Yes Did the patient sign up for the portal?: No CODE STATUS:: Full Code INSURANCE COVERAGE / FINANCIAL ISSUES:: Medicare. [employer] and Accidental Insurance CURRENT HOME/COMMUNITY SERVICES/EQUIPMENT:: Michelle has a walker for ambulation PRIMARY CARE PHYSICIAN:: Chito Brunner POTENTIAL DISCHARGE NEEDS:: Follow up with PCP and plan of care PATIENT/FAMILY EDUCATION NEEDS:: Review of discharge instructions, medications, limitations, activity, Ask Me Three TRANSPORTATION:: via private vehicle with family PLAN:: Michelle will likley be discharged home with no new services. She will follow up with her PCP and plan of care and transport with family. CM will continue to support Michelle and her discharge planning needs.
[2021-04-29] MEDS: HYDROmorphone 2 MG/ML VIAL 1 MG IVP ×3 (12:49→23:31)
[2021-04-29] MEDS: cefTRIAXone 2 GM/50 ML BAG IVPB (15:07)
[2021-04-29] MEDS: Insulin NPH-Human 300 UNITS/3 ML PEN 40 UNIT SC ×2 (15:50→21:30)
[2021-04-29] MEDS: VANCOMYCIN/WATER (PEG) 1 GM/200 ML BAG IV (15:50)
--- NOTE | 2021-04-29 16:32 | W.PM.PROGNOT ---
Date of Service Date of service: 04/29/21 Time of Service: 16:32 Assessment and Plan Assessment and plan (1) Cellulitis and abscess of foot: Status: Acute Assessment and plan: open sore over right medial ankle however xray of her foot suggested osteomyelitis of right 5th metatarsal head. Will get MRI of her RLE and right foot on Friday. blood cultures positive for GPC. patient is responding to Rocephin and Vancomycin. (2) Osteomyelitis of foot, acute: Status: Acute Assessment and plan: workup as above. cont. Vancomycin and Rocephin and modify based on final identification and sensitivities. Duration to be determined on whether or not she has osteomyelitis or endocarditis. (3) Gram-positive bacteremia: Status: Acute Assessment and plan: as above. (4) Rheumatoid arthritis: Status: Chronic Assessment and plan: Patient was on Humira but now is on Arava and is chronically on dexamethasone with pulses of prednisone is needed. She will be given stress steroids during her acute infectious process and stress of her bacteremia as discussed above. Qualifiers: Rheumatoid arthritis location: multiple sites Rheumatoid factor presence: unspecified presence Qualified Code(s): M06.9 - Rheumatoid arthritis, unspecified (5) Diabetes mellitus: Status: Chronic Assessment and plan: patient placed on CHO coverage as well as corrective scale and NPH for steroid coverage. Qualifiers: Diabetes mellitus type: type 2 Diabetes mellitus terminal carman insulin use: with usp use Diabetes mellitus complication status: with other specified complication Qualified Code(s): E11.69 - Type 2 diabetes mellitus with other specified complication; Z79.4 - senior living (current) use of insulin Subjective Subjective Interval history since last seen: Patient was admitted last night d/t sepsis w/ encephalopathy. The presumptive source is an ulcer over her right medial ankle. She has RA and psoriatic arthritis as well as OA. She wears an AFO on her right foot and ankle d/t deterioration of the bones in her foot. However lately she has had increased pain in the right foot and distal leg. She was running fevers and rigors and was delirious yesterday. Blood cultures are already showing gram positive cocci; presumably Staph aureus. She is on Vancomycin and high dose Rocephin 2 gm daily. I will get an MRI of her distal leg and foot and ankle on Friday to rule out osteomyelitis and also check echocardiogram to rule out endocarditis. She has no other open sores and no other focal sources of infections, i.e. no dysuria, no foul urine, no abdominal symptoms and no dyspnea or cough. Exam Narrative Exam Narrative: Pleasant middle age, white redheaded female lying in bed, alert and oriented x 3; is sitting at her bedside HEENT: unremarkable Lungs: clear Heart: RRR w/ soft systolic murmur over apex Abdomen: soft, obsese, nontender, nondistended, normal bowel sounds, no organomegaly Extremities: RLE no induration and no erythema but shallow ulcer over the right medial ankle w/out purulent discharge; normal pedal pulses; right distal tibia and right ankle are tender to palpation Skin: no other open sores over her extremities nor over her back or sacrum Objective Last Vital Signs Temp 37.3 C 04/29/21 16:12 Pulse 78 04/29/21 16:12 Resp 18 04/29/21 16:12 BP 150/78 H 04/29/21 16:12 Pulse Ox 96 04/29/21 16:12 Laboratory Results - last 24 hr 04/28/21 04/28/21 04/28/21 15:40 15:40 15:40 WBC RBC Hgb Hct MCV MCH MCHC RDW Plt Count MPV Immature Gran % Neutrophils % Lymphocytes % Monocytes % Eosinophils % Basophils % Nucleated RBC % Absolute Neutrophils Absolute Lymphocytes Absolute Monocytes Absolute Eosinophils Absolute Basophils VBG Lactate Sodium Potassium Chloride Carbon Dioxide Anion Gap BUN Creatinine Estimated GFR/1.73 m2 Glucose Calcium Magnesium Total Bilirubin AST ALT Alkaline Phosphatase C-Reactive Protein 3.28 H Total Protein Albumin Procalcitonin 0.2 TSH 1.38 Urine Color Urine Clarity Urine pH Ur Specific [place] Urine Protein Urine Ketones Urine Blood Urine Nitrite Urine Bilirubin Urine Urobilinogen Ur Leukocyte Esterase Urine RBC Urine WBC Ur Epithelial Cells Urine Crystals Urine Bacteria Urine Casts Urine Mucus Ur Culture Indicated? Urine Glucose SARS-CoV-2 (PCR) 04/28/21 04/28/21 04/29/21 15:55 16:00 07:39 WBC RBC Hgb Hct MCV MCH MCHC RDW Plt Count MPV Immature Gran % Neutrophils % Lymphocytes % Monocytes % Eosinophils % Basophils % Nucleated RBC % Absolute Neutrophils Absolute Lymphocytes Absolute Monocytes Absolute Eosinophils Absolute Basophils VBG Lactate 1.3 Sodium Potassium Chloride Carbon Dioxide Anion Gap BUN Creatinine Estimated GFR/1.73 m2 Glucose Calcium Magnesium Total Bilirubin AST ALT Alkaline Phosphatase C-Reactive Protein Total Protein Albumin Procalcitonin TSH Urine Color Yellow Urine Clarity Clear Urine pH 7.0 Ur Specific [place] 1.025 Urine Protein 100 H Urine Ketones 15 H Urine Blood Trace-intact H Urine Nitrite Negative Urine Bilirubin Negative Urine Urobilinogen 0.2 Ur Leukocyte Esterase Negative Urine RBC 0-2 Urine WBC 3-5 Ur Epithelial Cells Few Urine Crystals Negative Urine Bacteria Few Urine Casts Negative Urine Mucus Moderate Ur Culture Indicated? C&S Done As Ordered Urine Glucose Negative SARS-CoV-2 (PCR) Negative 04/29/21 04/29/21 04/29/21 07:39 07:39 07:39 WBC RBC Hgb Hct MCV MCH MCHC RDW Plt Count MPV Immature Gran % Neutrophils % Lymphocytes % Monocytes % Eosinophils % Basophils % Nucleated RBC % Absolute Neutrophils Absolute Lymphocytes Absolute Monocytes Absolute Eosinophils Absolute Basophils VBG Lactate Sodium 140 Potassium 4.1 Chloride 106 Carbon Dioxide 28.2 Anion Gap 5.8 BUN 14 Creatinine 0.9 Estimated GFR/1.73 m2 >= 60.00 Glucose 187 H Calcium 7.7 L Magnesium 1.8 Total Bilirubin 0.8 AST 37 ALT 36 Alkaline Phosphatase 63 C-Reactive Protein 19.79 H Total Protein 5.4 L Albumin 2.5 L Procalcitonin TSH Urine Color Urine Clarity Urine pH Ur Specific [place] Urine Protein Urine Ketones Urine Blood Urine Nitrite Urine Bilirubin Urine Urobilinogen Ur Leukocyte Esterase Urine RBC Urine WBC Ur Epithelial Cells Urine Crystals Urine Bacteria Urine Casts Urine Mucus Ur Culture Indicated? Urine Glucose SARS-CoV-2 (PCR) 04/29/21 07:39 WBC 8.70 D RBC 3.56 L Hgb 10.8 L Hct 33.3 L MCV 93.5 MCH 30.3 MCHC 32.4 RDW 14.3 Plt Count 205 MPV 10.4 Immature Gran % 0.5 Neutrophils % 85.4 Lymphocytes % 10.7 Monocytes % 3.1 Eosinophils % 0.0 Basophils % 0.3 Nucleated RBC % 0 Absolute Neutrophils 7.43 H Absolute Lymphocytes 0.93 L Absolute Monocytes 0.27 Absolute Eosinophils 0.00 Absolute Basophils 0.03 VBG Lactate Sodium Potassium Chloride Carbon Dioxide Anion Gap BUN Creatinine Estimated GFR/1.73 m2 Glucose Calcium Magnesium Total Bilirubin AST ALT Alkaline Phosphatase C-Reactive Protein Total Protein Albumin Procalcitonin TSH Urine Color Urine Clarity Urine pH Ur Specific [place] Urine Protein Urine Ketones Urine Blood Urine Nitrite Urine Bilirubin Urine Urobilinogen Ur Leukocyte Esterase Urine RBC Urine WBC Ur Epithelial Cells Urine Crystals Urine Bacteria Urine Casts Urine Mucus Ur Culture Indicated? Urine Glucose SARS-CoV-2 (PCR)
--- NOTE | 2021-04-29 18:05 | WOUNDCONS_ITS ---
- If Service Date Differs Date of service: 04/29/21 Time of Service: 18:05 Wound Initial Evaluation Narrative: Patient is a 65 yof , she was admitted here for fever, rigors, and possible sepsis. Once admitted patient was found to have a wound on the medial right ankle. Interviewing the patient. Up to two weeks ago, she had been wearing a supportive shoe r/t what she refers to a necrotic bone in her ankle. She had fallen two weeks ago. She said she had seen an orthopedic at the [facility], who gave her a walking boot. After 3 days of wearing the boot she said this wound had started. She has a cushion she puts over the wound, that she said has helped kept from the wound worsening. Her H&P, allergies, and other pertinent data were reviewed prior to starting the consult. Patient was interviewed and she signed the consents. - Wound Right Medial Ankle Wound Type: Pressure Ulcer Pressure Ulcer Stage: III (DME related pressure injury) Wound General Appearance: Reddened, Necrotic Wound Bed Greatest Portion: Yellow (Slough) Wound Bed Lesser Portion: Red (Granulation) Wound Surrounding Tissue Appearance: [place], Edges Rolled Percent of Wound Bed Granulated/Red: 5 Percent of Wound Bed Slough/Yellow: 95 Wound Length: 0.8 cm Wound Width: 0.6 cm Wound Depth: 0.2 cm Wound Drainage Amount: Minimal Wound Drainage Odor: None/Absent Wound Drainage Description: Bloody Wound Topical Solution/Irrigant: Saline Irrigant Wound Debridement Method: Mechanical (gauze) Wound Debridement Result: Healthy Tissue Revealed Wound Debridement Amount of Tissue Removed: Minimal - Circulation, Sensation, Motion Edema Degree: 3+ Peripheral Pulse Strength: Weak Capillary Refill: Less than 3 seconds Sensation Description: Pain (patient has episodes of severe pain in the right ankle and foot) Skin Temperature: Warm Skin Color: Normal - Pain Pain Level: 7 Pain Scale Used: Visual Analog Scale 0-10 Pain Description: Sharp Pain Duration/Frequency: With Movement Pressure injury related to durable medical equipment. Wound started several days after wearing the boot. Patient is strongly encouraged to revisit the provider that issued the boot and discuss a different option. - Treatment/Dressing Change Topicals/Ointments: Anasept Gel Cleanse With: Cleanser with Surfactant Dressing Types: Mepilex w/Border - Recomendation Recomendation:: Cleanse with skintegrity, and gauze. Then pat dry. Apply a thin layer of Anasept gel to the wound bed. Cover with a Mepilex 4x4. Change every 3 days and PRN. Patient encouraged to keep pressure off the wound Physcian/Nurse Practioner Notified: Yes (Dr. Reagan) Treatment Time - Time Total Time Spent with Patient: 30 minutes - Patient Will be Seen Weekly Treatment: 3x/wk - For: For:: 1 week
[2021-04-29] MEDS: Zolpidem 10 MG TAB PO (21:31)
[2021-04-29] MEDS: Montelukast 10 MG TAB PO (21:31)
[2021-04-29] MEDS: Atorvastatin 10 MG TAB PO (21:31)
[2021-04-30] MEDS: VANCOMYCIN/WATER (PEG) 1 GM/200 ML BAG IV ×2 (02:11→13:43)
[2021-04-30] MEDS: HYDROmorphone 2 MG/ML VIAL 1 MG IVP ×2 (05:19→09:34)
[2021-04-30] MEDS: Metoprolol 25 MG TAB PO ×3 (06:25→21:53)
[2021-04-30] MEDS: Insulin NPH-Human 300 UNITS/3 ML PEN 40 UNIT SC ×2 (06:25→22:07)
[2021-04-30] MEDS: Hydrocortisone SOD SUC. 100 MG VIAL IVP ×3 (06:25→21:52)
[2021-04-30] MEDS: Heparin 5,000 UNITS/ML VIAL 5000 UNITS SC ×3 (06:25→21:52)
[2021-04-30 07:30] VITALS: BP 165/71; PULSE 74; RESP 18; TEMP 36.9; O2SAT 96
[2021-04-30 07:36] LABS: Abs Immature Grans 0.04 10^3/uL (0.0-0.06); Absolute Basophil Count 0.02 10^3/uL (0.0-0.2); Absolute Lymphocyte Count 1.62 10^3/uL (1.2-3.4); Absolute Monocyte Count 0.52 10^3/uL (0.1-0.8); Absolute Neutrophil Count 7.41 10^3/uL (1.2-6.7); Basophils % 0.2; HGB 10.1 g/dL (11.2-15.7); Immature Grans % 0.4; Lymphocytes % 16.9; MCH 29.7 pg (27.0-33.0); MCHC 32.6 % (32.0-36.0); MCV 91.2 fL (80-95); Monocytes % 5.4; Neutrophils % 77.1; Nucleated RBC 0 %; Platelet Count 204 10^3/uL (130-400); RDW 14.1 % (11.7-14.6); RDW-SD 47.1 fL; WBC 9.61 10^3/uL (4.4-10.8)
[2021-04-30 07:57] LABS: BUN 12 mg/dL (7-18); C-Reactive Protein 13.72 mg/dL (0.0-0.3); CREATININE 0.9 mg/dL (0.55-1.02); Calcium 8.3 mg/dL (8.5-10.1); Chloride 108 mmol/L (98-107); Glucose 125 mg/dL (74-106); Sodium 144 mmol/L (136-145)
[2021-04-30 07:59] LABS: Potassium 2.9 mmol/L (3.5-5.1)
[2021-04-30] MEDS: Aspirin 81 MG CHEW PO (08:32)
[2021-04-30] MEDS: hydroCHLOROthiazide 25 MG TAB PO (08:33)
[2021-04-30] MEDS: Lisinopril 10 MG TAB PO (08:33)
[2021-04-30] MEDS: Folic Acid 1 MG TAB PO (08:33)
[2021-04-30] MEDS: Amitriptyline 25 MG TAB PO (08:33)
[2021-04-30] MEDS: Insulin Aspart 300 UNITS/3 ML PEN SC ×4 (08:35→22:03)
[2021-04-30] MEDS: Potassium Chloride 10 MEQ CAPCR 20 MEQ PO ×3 (08:42→21:55)
[2021-04-30] MEDS: Pantoprazole 40 MG VIAL IVP (08:46)
[2021-04-30] MEDS: Normal Saline Flush 10 ML SYR IVP ×4 (08:46→21:50)
[2021-04-30] MEDS: Budesonide/Formoterol 160/4.5 6 GM 60 PUFF INH IH ×2 (09:10→21:52)
[2021-04-30] MEDS: Docusate Sodium 100 MG CAP PO (12:04)
[2021-04-30] MEDS: Polyethylene Glycol 3350 17 GM PACKET PO (12:04)
[2021-04-30 13:24] LABS: Vancomycin, Trough 14.8 ug/mL (10.0-20.0)
[2021-04-30] MEDS: oxyCODONE 15 MG TAB PO ×3 (13:44→21:59)
--- NOTE | 2021-04-30 15:15 | W.PM.PROGNOT ---
Date of Service Date of service: 04/30/21 Time of Service: 15:15 Assessment and Plan Assessment and plan (1) Sepsis: Status: Acute Assessment and plan: patient has Strep bacteremia probably from ulcer in her right foot and probably has osteomyelitis in that foot. Her septic picture has improved. Her cognition had improved remarkably yesterday. I have ordered repeat blood cultures to see if her bacteremia is clearing. She remains on Rocephin 2 gm daily along w/ Vancomycin. If her bacteremia clears then she can start her Leflunomide for her RA. I also plan to consolidate her antibiotic therapy. If her bacteremia clears then I will ask for PICC line to be placed for terminal worker antibiotics i.e., 6 weeks. I explained this to the patient and her . I will consult w/ I.D. tomorrow once final identification of her original blood culture comes back Qualifiers: Sepsis type: Streptococcus, unspecified Sepsis acute organ dysfunction status: without acute organ dysfunction Qualified Code(s): A40.9 - Streptococcal sepsis, unspecified (2) Gram-positive bacteremia: Status: Acute Assessment and plan: Appears to be a Strep bacteremia (3) Osteomyelitis of foot, acute: Status: Suspected Assessment and plan: based on her xray and symptoms it appears to be osteomyelitis of the right 5th metatarsal. will confirm w/ MRI and discuss w/ podiatry and I.D. (4) Cellulitis and abscess of foot: Status: Acute Assessment and plan: as above (5) Diabetes mellitus: Status: Chronic Assessment and plan: blood sugars improving on NPH and bolus insulin w/ CHO coverage and sliding scale. I will be stopping her stress dose hydrocortisone tomorrow and start her on prednisone taper. I will reduce her NPH dose tomorrow. Qualifiers: Diabetes mellitus type: type 2 Diabetes mellitus custodial insulin use: with custodial use Diabetes mellitus complication status: with other specified complication Qualified Code(s): E11.69 - Type 2 diabetes mellitus with other specified complication; Z79.4 - superintendent terminal (current) use of insulin (6) Rheumatoid arthritis: Status: Chronic Assessment and plan: continue high dose steroids for stress coverage and begin taper tomorrow. If bacteremia clears then she can start her Leflunomide tomorrow. Qualifiers: Rheumatoid arthritis location: multiple sites Rheumatoid factor presence: unspecified presence Qualified Code(s): M06.9 - Rheumatoid arthritis, unspecified (7) DVT prophylaxis: Status: Acute Assessment and plan: heparin 5000 units SC q8h Subjective Subjective Interval history since last seen: Patient w/ severe right foot pain. Her xray of her right foot is suggestive of osteomyelitis of her right fith metatarsal. I have scheduled her for MRI of her right lower extremity w/ attention to her right foot and ankle. Her blood cultures grew Strep species. She remains on Vancomycin and Rocephin. I will await her sensitivities but suspect she can be switched to switched to high dose PCN G and clindamycin. She would like her Arava for her RA. I told her that I would like to be sure that her bacteremia has cleared. I will also check echo tomorrow to r/o endocarditis. Patient reminded me that she is allergic to PCN causing her swelling and itching and was observed in her PCP office and was treated in the office. She is tolerating high dose Rocephin so this may be the choice for her. I will consult w/ I.D. once the sensitivities are back. Exam Narrative Exam Narrative: Right foot remains swollen and tender. No erythema of the skin. Particularly tender across the dorsum of the foot and over the metatarsals. She has open sore over the medial right ankle. Objective Last Vital Signs Temp 36.9 C 04/30/21 07:30 Pulse 74 04/30/21 07:30 Resp 18 04/30/21 07:30 BP 165/71 H 04/30/21 07:30 Pulse Ox 96 04/30/21 07:30 Laboratory Results - last 24 hr 04/30/21 04/30/21 04/30/21 06:48 06:48 13:05 WBC 9.61 RBC 3.40 L Hgb 10.1 L Hct 31.0 L MCV 91.2 MCH 29.7 MCHC 32.6 RDW 14.1 Plt Count 204 MPV 11.0 Immature Gran % 0.4 Neutrophils % 77.1 Lymphocytes % 16.9 Monocytes % 5.4 Eosinophils % 0.0 Basophils % 0.2 Nucleated RBC % 0 Absolute Neutrophils 7.41 H Absolute Lymphocytes 1.62 Absolute Monocytes 0.52 Absolute Eosinophils 0.00 Absolute Basophils 0.02 Sodium 144 Potassium 2.9 L D Chloride 108 H Carbon Dioxide 29.0 Anion Gap 7.0 BUN 12 Creatinine 0.9 Estimated GFR/1.73 m2 >= 60.00 Glucose 125 H Calcium 8.3 L C-Reactive Protein 13.72 H Vancomycin Trough 14.8
[2021-04-30 16:02] VITALS: BP 166/74; PULSE 69; RESP 17; TEMP 36.7; O2SAT 95
[2021-04-30] MEDS: amLODIPine 5 MG TAB 10 MG PO (16:08)
[2021-04-30] MEDS: cefTRIAXone 2 GM/50 ML BAG IVPB (16:09)
[2021-04-30 17:18] LABS: Potassium 3.1 mmol/L (3.5-5.1)
[2021-04-30] MEDS: POTASSIUM CHLORIDE 20 MEQ, POTASSIUM CHLORIDE 10 MEQ 30 MEQ PO (18:13)
[2021-04-30] MEDS: Atorvastatin 10 MG TAB PO (21:53)
[2021-04-30] MEDS: tiZANidine 4 MG TABLET 8 MG PO (21:55)
[2021-04-30] MEDS: Zolpidem 10 MG TAB PO (21:55)
[2021-04-30] MEDS: Montelukast 10 MG TAB PO (21:56)
--- NOTE | 2021-05-01 | DI.US_ITS ---
Exam(s) US EXTREMITY VENOUS BI EXAM: US EXTREMITY VENOUS BI CLINICAL HISTORY: bilateral lower leg edema and pain. TECHNIQUE: Bilateral lower extremity venous ultrasound performed using grayscale, color-flow, and sp ectral Doppler analysis. COMPARISON: No exams were available for comparison FINDINGS: The bilateral common femoral, femoral and popliteal veins demonstrate normal compressibility, augment ation, and color Doppler. The posterior tibial veins are patent. No superficial thrombophlebitis or Cyr's cyst. IMPRESSION: Right: Negative for DVT Left: Negative for DVT DATA REPOSITORY:
[2021-05-01 00:11] VITALS: BP 148/72; PULSE 67; RESP 18; TEMP 36.5; O2SAT 94
[2021-05-01] MEDS: oxyCODONE 15 MG TAB PO ×5 (02:25→20:19)
[2021-05-01] MEDS: VANCOMYCIN/WATER (PEG) 1 GM/200 ML BAG IV ×2 (02:25→15:54)
[2021-05-01] MEDS: Normal Saline Flush 10 ML SYR IVP ×5 (02:25→17:42)
[2021-05-01] MEDS: Heparin 5,000 UNITS/ML VIAL 5000 UNITS SC ×3 (05:15→22:22)
[2021-05-01] MEDS: Metoprolol 25 MG TAB PO ×3 (05:15→22:22)
[2021-05-01 07:02] LABS: Anion Gap 6.6 mmol/L (3-11); BUN 12 mg/dL (7-18); CO2 31.4 mmol/L (21.0-32.0); CREATININE 0.8 mg/dL (0.55-1.02); Calcium 8.3 mg/dL (8.5-10.1); Chloride 106 mmol/L (98-107); Glucose 197 mg/dL (74-106); Potassium 3.1 mmol/L (3.5-5.1); Sodium 144 mmol/L (136-145)
[2021-05-01] MEDS: Budesonide/Formoterol 160/4.5 6 GM 60 PUFF INH IH ×2 (08:02→19:08)
[2021-05-01] MEDS: predniSONE 20 MG TAB 40 MG PO (08:34)
[2021-05-01] MEDS: amLODIPine 10 MG TAB PO (08:34)
[2021-05-01] MEDS: Lisinopril 10 MG TAB PO (08:34)
[2021-05-01] MEDS: hydroCHLOROthiazide 25 MG TAB PO (08:34)
[2021-05-01] MEDS: Folic Acid 1 MG TAB PO (08:34)
[2021-05-01] MEDS: Aspirin 81 MG CHEW PO (08:34)
[2021-05-01] MEDS: Amitriptyline 25 MG TAB PO (08:34)
[2021-05-01] MEDS: Insulin Aspart 300 UNITS/3 ML PEN SC ×7 (08:35→22:23)
[2021-05-01] MEDS: Potassium Chloride 10 MEQ CAPCR 20 MEQ PO ×2 (08:35→19:07)
[2021-05-01] MEDS: tiZANidine 4 MG TABLET 8 MG PO ×3 (08:35→19:08)
[2021-05-01] MEDS: Insulin NPH-Human 300 UNITS/3 ML PEN 20 UNIT SC (08:36)
[2021-05-01 08:55] VITALS: BP 162/79; PULSE 67; RESP 20; TEMP 36.7; O2SAT 97
[2021-05-01] MEDS: Pantoprazole 40 MG VIAL IVP (09:11)
--- NOTE | 2021-05-01 09:43 | NUR.NOTE ---
Pt refused being weighed this morning. She stated to this INCIDENT COMMANDER that she doesnt want to move or do anything until she has her MRI today.Nursing Note:
[2021-05-01] MEDS: Gadoterate meglumine 20 ML VIAL IVP (10:56)
--- NOTE | 2021-05-01 11:00 | CMPROGNOTE_ITS ---
- If Service Date Differs Date of service: 05/01/21 Time of Service: 11:00 Care Management Progress Note S/O: Michelle was sitting up in her chair when CM met with her. She was alert and oriented X3, pleasant and easily engaged in conversation. Michelle shares that she is waiting for the results of her recent imaging and anticipates finding out if she needs surgery or if she can go home on antibiotics. CM continues to follow. A: 65 year old female admitted to [facility] on 04/28/21 for Osteomyelitis, Cellulites P: Michelle will likely be discharged home with no new services. She will follow up with her PCP and plan of care and transport with family. CM will continue to support Michelle and her discharge planning needs.
--- NOTE | 2021-05-01 11:30 | DI.MRI_ITS ---
Exam(s) MR LOWER JOINT RT WO/W EXAM: MR LOWER JOINT RT WO/W CLINICAL HISTORY: medial right ankle ulcer, r/o osteomyelitis. TECHNIQUE: Multiplanar multisequence MRI Examination was performed. CONTRAST MATERIAL: IV Contrast: 20 mL of Dotarem contrast administered. COMPARISON: Plain films 26 March 2021 FINDINGS: The exam is somewhat limited by artifact from metallic hardware. Hardware is noted in the distal tib ia. There has been previous resection of the distal fibula. There is diffuse edema in the subcutane ous fat of the ankle and visualized portions of the foot. The findings are greatest dorsally and an and laterally. There is no drainable soft tissue abscess. . The hardware causes poor fat suppressio n. There is no abnormal abnormal high signal within the bones or abnormal enhancement within the bon e following IV gadolinium. The tendons appear intact. There is no fluid within the tendon sheaths o r significant joint effusion. IMPRESSION: Artifact from hardware somewhat limits the exam. No evidence osteomyelitis or drainable collection. DATA REPOSITORY:
[2021-05-01] MEDS: Polyethylene Glycol 3350 17 GM PACKET PO (14:12)
[2021-05-01] MEDS: cefTRIAXone 2 GM/50 ML BAG IVPB (14:12)
[2021-05-01] MEDS: Docusate Sodium 100 MG CAP PO (14:12)
--- NOTE | 2021-05-01 14:21 | W.PM.PROGNOT ---
Date of Service Date of service: 05/01/21 Time of Service: 14:21 Assessment and Plan Assessment and plan (1) Bacteremia due to group B Streptococcus: Status: Acute Assessment and plan: patient initially presented w/ acute delirium and CASH and was septic but quickly responded to parenteral antibiotics. She remains on high dose Rocephin 2 gm daily (d#3), also had 3 days of Vancomycin which I have discontinued. awaiting repeat blood cultures from yesterday. If no osteomyelitis and repeat cultures are negative, then she could have midline for daily Rocephin x 2 weeks. Awaiting echocardiogram to rule out vegetations. (2) Osteomyelitis of foot, acute: Status: Suspected Assessment and plan: osteomyelitis of the right 5th MT head was suspected by her xray but MRI did not confirm this. I will ask podiatry to review and make an opinion on this. For now she will still receive treatment w/ parenteral antibiotics (high dose Rocephin 2 gm daily for Group B Strep bacteremia). (3) Cellulitis and abscess of foot: Status: Acute Assessment and plan: right ankle ulcer is superficial and appears to be improving. continue current wound care nurse's treatment. elevate foot. Will have podiatry evaluate her. cont. Rocephin for Group B Strep bacteremia. (4) Diabetes mellitus: Status: Chronic Assessment and plan: glucose still running high (196 FBS today and 230 at lunch), I am changing his corrective scale from moderate to resistant and increase her CHO coverage to 2:10 ratio. continue current NPH 20 units for her prednisone 40 mg. Add Lantus at bedtime. She was on 40 units but I will start at half that dose and see how her FBS run. 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 patient was on stress dose hydrocortisone on admission but now is on prednisone 40 mg daily. I will start to taper tomorrow. cont. NPH while on prednisone. Qualifiers: Rheumatoid arthritis location: multiple sites Rheumatoid factor presence: unspecified presence Qualified Code(s): M06.9 - Rheumatoid arthritis, unspecified (6) Pain of left calf: Status: Acute Assessment and plan: check US of her legs to r/o DVT (7) DVT prophylaxis: Status: Acute Assessment and plan: heparin 5000 units SC q8h Subjective Subjective Interval history since last seen: Patient states that her left leg is now more swollen and she has left calf tenderness. Her MRI of her RLE was compromised d/t metallic devices causing artifact but radiologist read this as not showing osteomyelitis. Given that she has a right medial ankle ulcer, chronic hardware in the right foot, I am going to ask for podiatry consult to review. If she just has Group B Strep bacteremia, then 2 weeks of antibiotics should be sufficient but if she has osteomyelitis then 6 wks are needed and there is question of whether or not she needs removal of hardware. Apparently the surgery she had involved w/ fixation of the ankel joint itself. The area inquestion is the 5th metatarsal head. Exam Narrative Exam Narrative: Patient is sitting up in bed watching TV w/ her . no acute distress Lungs: clear Heart: RRR Abdomen: soft, nontender, normal bowel sounds, nondistended Lower extremtities: right medial ulcer is covered w/ mepilex which I pulled back. The ulcer appears to be receding, w/ only small amount of oozing clear fluid Left calf is tender to palpation and feels firm and left lower leg is more swollen today Objective Last Vital Signs Temp 36.7 C 05/01/21 08:55 Pulse 67 05/01/21 08:55 Resp 20 05/01/21 08:55 BP 162/79 H 05/01/21 08:55 Pulse Ox 97 05/01/21 08:55 Laboratory Results - last 24 hr 04/30/21 05/01/21 16:18 06:18 Sodium 144 Potassium 3.1 L 3.1 L Chloride 106 Carbon Dioxide 31.4 Anion Gap 6.6 BUN 12 Creatinine 0.8 Estimated GFR/1.73 m2 >= 60.00 Glucose 197 H Calcium 8.3 L
--- NOTE | 2021-05-01 15:25 | PT.INIE ---
Date of service: 05/01/21 Time of Service: 15:25 PT Notes Visit Reasons: Osteomyelitis, Cellulitis Physical Therapy Inpatient Initial Evaluation Date: 05/01/2021 Referring Doctor: Chito Reagan MD PT Orders: PT CONSULT: Fall safety assessment Precautions: Fall. Standard. Activity as tolerated. Patient Profile/Admitting Diagnosis: Azalea is a 65-year-old female who presented to the ED 04/28/2021 due to rigors, fever, and mild confusion. Patient is diagnosed with cellulitis and abscess of right foot osteomyelitis of right foot bacteremia, rheumatoid arthritis, diabetes mellitus, and sepsis. PMHX: Medical History (Updated 04/29/21 @ 09:50 by Aydin De Los Santos) Diabetes mellitus Pain Rheumatoid arthritis Surgical History Status post total left knee replacement Social History/Home Situation: Lives with in a private home with a ramp to enter. Able to cook meals twice a week. Independent with bathing and dressing. Does grocery shopping using her scooter. Independent with all indoor ambulation using front wheeled walker, scooter for all long distance ambulation Equipment Owned/DME: Front wheeled walker, scooter Subjective: Michelle states that she has 55 steps as the longest distance she has to walk at home. Michelle indicates that she has had over 5 falls in the past year due to her knees giving out. She reports that the upholstery covers inspector in [place] prescribed an Aircast boot for about 4 years now in order to increase stability of her walking. She reports that she also uses a shoe on the left side to minimize leg length discrepancy, however no shoe would fit the left foot right now due to increased swelling she is agreeable to trying out a postop shoe on the left that will accommodate swelling and at the same time minimize difference in leg length. Reports that her has been a very good support for her. Indicated she had home health PT in the past and is open to having them again as needed when she goes home. Reports that her left upper extremity and lower extremity swelling has gotten much worse today than it did at home. Objective: General Observation: Kyphosis with dextroscoliosis. IV access in right UE. Increased swelling in B UE/LE with left more affected than the right. Obese. Mental Status: Alert and oriented as to person, place, time, and purpose. Able to pay attention, focus, and respond appropriately. Pain: 5/10 generalized ROM: Right Upper Extremity: Shoulder Flexion WFL. Shoulder abduction WFL. Elbow flexion WFL. Wrist flexion WFL. Functional opening and closing of hand WFL. Left Upper Extremity: Shoulder Flexion WFL. Shoulder abduction WFL. Elbow flexion WFL. Wrist flexion WFL. Functional opening and closing of hand WFL. Right Lower Extremity: Hip flexion up to 90 degrees in supine. Hip abduction 20 degrees while in supine. Knee flexion 80 degrees in supine. Ankle dorsiflexion unable due to previous ankle surgery. Ankle plantarflexion unable due to previous ankle surgery. Left Lower Extremity: Hip flexion up to 90 degrees in supine. Hip abduction 20 degrees while in supine. Knee flexion 80 degrees in supine. Ankle dorsiflexion WFL. Ankle plantarflexion WFL. Strength: Right Upper Extremity: Shoulder flexors 4/5. Shoulder abductors 4/5. Elbow flexors 4/5. Elbow extensors 4/5. Rod Bending Machine Operator weak but functional. Left Upper Extremity: Shoulder flexors 4/5. Shoulder abductors 4/5. Elbow flexors 4/5. Elbow extensors 4/5. Rod Bending Machine Operator weak but functional. Right Lower Extremity: Hip flexors 3-/5. Hip abductors 3-/5. Knee flexors 3-/5. Knee extensors 3/5. Ankle dorsiflexors 1/5. Ankle plantarflexors 1/5. Left Lower Extremity: Hip flexors 3-/5. Hip abductors 3-/5. Knee flexors 3-/5. Knee extensors 3-/5. Ankle dorsiflexors 4-/5. Ankle plantarflexors 4-/5. Bed Mobility/Transfers: Sit to stand supervision Stand to sit standby assist Bed to reclining chair standby assist Reclining chair to bed standby assist Gait: Instructed patient with level surface ambulation of 5 feet + 12 feet +15 feet requiring contact-guard assist. Keeley decreased. Step height on the right side decreased. Step length on right side decreased. Kyphosis and dextroscoliosis aggravated by use of Aircast boot on the right side without any footwear on the left side. Balance: Static Sitting: Normal Dynamic Sitting: Normal Static Standing: Fair Dynamic Standing: Fair Special Tests: Mobility Limitations Standardized Measure [facility] AM-PAC 6 clicks Basic Mobility Inpatient Short Form: Raw Score: 22 CMS Score: 21% deficit Informed Consent/Education: Patient was instructed in purpose of PT consult and plan of care. Agreeable to proceed with established PT POC to achieve personal goals. Assessment: Michelle reports generalized weakness, fatigue, and pain limiting her ability to perform mobility ADLs. Patient presents with clinical signs and symptoms consistent with current/admitting diagnoses that have resulted to mobility limitations, gait instability, generalized weakness, and overall ADL decline as demonstrated by the following impairment level findings: 1. Decreased strength to B LE major muscle groups 2. Impaired standing balance 3. Impaired activity tolerance 4. Limitation of joint range of motion in NT. See most recent MAIL OPENER notes. Hips 5. Obesity 6. Swelling in B UE/ LE with L more affected than the R 7. Chronic pain Impairments are contributing to the following functional limitations: 1. Decline in transfer skills 2. Difficulty with ambulation without assistive device and physical assistance 3. Increased completion time for mobility ADL performance 4. Increased risk for falls 5. Difficulty with managing steps alone safely Patient is assessed as a 10217 moderate complexity based on the following: History: 65-year-old female with past medical history as indicated above Examination: Demonstrable impairment in strength, balance, and mobility level with underlying impairments and functional limitations as exhibited above as well as deficit score of 21% utilizing the [facility] Mobility Inpatient Short Form Presentation: Evolving Decision Makin moderate complexity Goals: Goals X1 week 1. Supine-Sit independent 2. Sit-Supine independent 3. Sit-Stand independent 4. Stand-Sit independent with front wheel walker 5. Bed-Chair independent with front wheel walker 6. Chair-Bed independent with front wheel walker 7. Independent gait on level surface with use of front wheeled walker for at least 75 feet without report of pain nor dyspnea 9. Good static and dynamic standing balance/tolerance Plan of Care/Treatment Plan: 1-2x/day, 7 days/week x 1 week. Plan of care has been reviewed with the MAIL OPENER providing the service under Physical Therapy direction. Initiate Physical Therapy intervention for pain management as needed, strengthening, bed mobility, transfers, gait, stairs, balance training, and use of assistive device. DISCHARGE RECOMMENDATIONS: Patient will benefit from home health PT services in order to progress mobility level using least restrictive assistive ambulatory device, assess home safety, identify additional equipment needs, and establish a functional maintenance program that will increase ability of patient to remain at home. TREATMENT CODE/TIME: 02017 x 20 minutes, 37543 x 13 minutes beginning at 15:25 PM. Thank you for the opportunity to participate in the care of this patient. Fela Arzola PT, DPT, CLT [facility] [place], [place]
[2021-05-01] MEDS: Potassium Chloride 20 MEQ TABCR 40 MEQ PO (15:51)
[2021-05-01 19:02] VITALS: BP 150/82; PULSE 72; RESP 18; TEMP 36.7; O2SAT 96
[2021-05-01] MEDS: Atorvastatin 10 MG TAB PO (22:22)
[2021-05-01] MEDS: Montelukast 10 MG TAB PO (22:22)
[2021-05-01] MEDS: Zolpidem 10 MG TAB PO (22:22)
[2021-05-01] MEDS: Insulin Glargine 300 UNITS/3 ML PEN 20 UNITS SC (22:52)
[2021-05-02] MEDS: VANCOMYCIN/WATER (PEG) 1 GM/200 ML BAG IV ×2 (01:15→15:37)
[2021-05-02 01:23] VITALS: BP 143/66; PULSE 67; RESP 16; TEMP 36.9; O2SAT 96
[2021-05-02] MEDS: oxyCODONE 15 MG TAB PO ×5 (02:06→19:13)
[2021-05-02] MEDS: Heparin 5,000 UNITS/ML VIAL 5000 UNITS SC ×3 (06:23→21:38)
[2021-05-02] MEDS: Metoprolol 25 MG TAB PO (06:24)
[2021-05-02 06:38] LABS: Abs Immature Grans 0.03 10^3/uL (0.0-0.06); Absolute Basophil Count 0.01 10^3/uL (0.0-0.2); Absolute Eosinophil Count 0.05 10^3/uL (0.0-0.7); Absolute Lymphocyte Count 2.51 10^3/uL (1.2-3.4); Absolute Monocyte Count 0.66 10^3/uL (0.1-0.8); Absolute Neutrophil Count 4.42 10^3/uL (1.2-6.7); Basophils % 0.1; Eosinophils % 0.7; HCT 35.2 % (36.0-46.0); HGB 11.5 g/dL (11.2-15.7); Immature Grans % 0.4; Lymphocytes % 32.7; MCHC 32.7 % (32.0-36.0); MCV 91.9 fL (80-95); MPV 10.1 fL (8.0-11.0); Monocytes % 8.6; Neutrophils % 57.5; Nucleated RBC 0 %; Platelet Count 241 10^3/uL (130-400); RBC 3.83 10^6/uL (3.93-5.22); RDW 14.1 % (11.7-14.6); RDW-SD 47.4 fL; WBC 7.68 10^3/uL (4.4-10.8)
[2021-05-02 06:58] LABS: Anion Gap 6.8 mmol/L (3-11); BUN 14 mg/dL (7-18); C-Reactive Protein 3.03 mg/dL (0.0-0.3); CO2 31.2 mmol/L (21.0-32.0); CREATININE 0.9 mg/dL (0.55-1.02); Calcium 8.6 mg/dL (8.5-10.1); Chloride 105 mmol/L (98-107); Glucose 114 mg/dL (74-106); Potassium 3.1 mmol/L (3.5-5.1); Sodium 143 mmol/L (136-145)
[2021-05-02 07:12] LABS: Procalcitonin 0.2 ng/mL
[2021-05-02 07:55] LABS: Magnesium 1.6 mg/dL (1.8-2.4)
[2021-05-02] MEDS: Aspirin 81 MG CHEW PO (08:13)
[2021-05-02] MEDS: Lisinopril 20 MG TAB PO (08:13)
[2021-05-02] MEDS: Folic Acid 1 MG TAB PO (08:13)
[2021-05-02] MEDS: Amitriptyline 25 MG TAB PO (08:13)
[2021-05-02] MEDS: hydroCHLOROthiazide 25 MG TAB PO (08:13)
[2021-05-02] MEDS: amLODIPine 10 MG TAB PO (08:13)
[2021-05-02] MEDS: Polyethylene Glycol 3350 17 GM PACKET PO ×2 (08:13→11:06)
[2021-05-02] MEDS: Potassium Chloride 10 MEQ CAPCR 20 MEQ PO ×2 (08:14→14:09)
[2021-05-02] MEDS: predniSONE 20 MG TAB 40 MG PO (08:14)
[2021-05-02] MEDS: tiZANidine 4 MG TABLET 8 MG PO ×3 (08:14→19:13)
[2021-05-02] MEDS: Docusate Sodium 100 MG CAP PO ×3 (08:14→19:14)
[2021-05-02] MEDS: Insulin NPH-Human 300 UNITS/3 ML PEN 20 UNIT SC (08:25)
[2021-05-02] MEDS: Insulin Aspart 300 UNITS/3 ML PEN SC ×6 (08:26→21:50)
[2021-05-02] MEDS: Budesonide/Formoterol 160/4.5 6 GM 60 PUFF INH IH ×2 (08:35→19:10)
--- NOTE | 2021-05-02 09:08 | W.PODCONSULT ---
Date of service: 05/02/21 Time of Service: 09:09 History of Present Illness History of Present Illness Chief Complaint: Wound medial right ankle region with bacteremia due to group be Streptococc Narrative: 65-year-old female seen at bedside for consultation concerning suspicious radiologic findings of her right foot, open wound on the medial aspect of her right ankle for which she was admitted to the mental status [facility] with positive bacteremia due to group be Streptococcus. She indicates she is feeling much better at this time as she has been on IV antibiotics and hydration since admission. She wears a short cam walker on her right lower extremity and indicates that she frequently gets abrasions and occasional wounds from the apparatus. She also indicates that she was trimming her toenails earlier this year, extending her toes during the process and actually sustained metatarsal fractures from that maneuver. She is followed by the podiatry group at [facility]. [facility], [facility] Medical History Diabetes mellitus Pain Rheumatoid arthritis Surgical History Status post total left knee replacement Social History Smoking/Tobacco Use Status: Never Smoking risk assessment performed?: Yes Alcohol Intake: current Alcohol Intake frequency: holidays/special occasions only Drug use: Never Do you feel safe at home: Yes Do you feel safe in your relationship?: Yes Exam Narrative Exam Narrative: Michelle is a 65-year-old female sitting comfortably in her bed in no acute distress. She appears older than her stated age and looks cushingoid. Both lower extremities are examined. She has +1 edema bilaterally, nontender to palpation, calves are soft. Skin on the left lower extremity is grossly intact, toenails are fungal. Right lower extremity is generally intact with a superficial ulcer noted just above the right medial malleolus which is currently free of any erythema or cellulitis. This wound is partial-thickness and measures 8 mm x 6 mm and is less than 1 mm deep. The base of the wound appears clean and there is no undermining. There is no openings on the right foot, the webspaces are clean no signs of tinea. There is tenderness to palpation at the neck of the fifth metatarsal but no fluid accumulations, erythema or signs of infection noted. Muscle groups of 5 out of 5 bilaterally although generally deconditioned She does have longstanding rheumatoid arthritis and psoriatic arthritis which has been treated with immunosuppressive agents for many years. X-ray shows an old fracture through the head of the fifth metatarsal right foot and I believe an old fracture of the third metatarsal shaft. This is consistent with her verbal history of sustaining fracture in the foot in Cam boot usage. Impressions: Abrasion ulceration right medial ankle as above from walking boot Bony changes right fifth metatarsal head and third metatarsal shaft Plan: Clinically I believe the changes in her right foot are consistent with chronic steroid usage and old fractures. The wound over the medial right ankle is clean at this time and fairly superficial and I would expect that to heal up when irritation is removed and topical wound care instituted. Length of antibiotics I believe should be focused on the bacteremia which was identified at this admission and monitoring of inflammatory markers. If she fails to respond as one would expect from the antibiotics, bone biopsy would be the definitive maneuver to determine if an osteomyelitis is present. Thank you for asking me to assist in this patient's care. Results Last Vital Signs Temp 36.9 C 05/02/21 01:23 Pulse 67 05/02/21 01:23 Resp 16 05/02/21 01:23 BP 143/66 H 05/02/21 01:23 Pulse Ox 96 05/02/21 01:23 Labs Result diagrams: 05/02/21 06:26 05/02/21 06:26 Labs: Laboratory Results - last 24 hr 05/02/21 05/02/21 05/02/21 06:26 06:26 06:26 WBC RBC Hgb Hct MCV MCH MCHC RDW Plt Count MPV Immature Gran % Neutrophils % Lymphocytes % Monocytes % Eosinophils % Basophils % Nucleated RBC % Absolute Neutrophils Absolute Lymphocytes Absolute Monocytes Absolute Eosinophils Absolute Basophils Sodium 143 Potassium 3.1 L Chloride 105 Carbon Dioxide 31.2 Anion Gap 6.8 BUN 14 Creatinine 0.9 Estimated GFR/1.73 m2 >= 60.00 Glucose 114 H D Calcium 8.6 Magnesium 1.6 L C-Reactive Protein 3.03 H Procalcitonin 0.2 05/02/21 06:26 WBC 7.68 RBC 3.83 L Hgb 11.5 Hct 35.2 L MCV 91.9 MCH 30.0 MCHC 32.7 RDW 14.1 Plt Count 241 MPV 10.1 Immature Gran % 0.4 Neutrophils % 57.5 Lymphocytes % 32.7 Monocytes % 8.6 Eosinophils % 0.7 Basophils % 0.1 Nucleated RBC % 0 Absolute Neutrophils 4.42 Absolute Lymphocytes 2.51 Absolute Monocytes 0.66 Absolute Eosinophils 0.05 Absolute Basophils 0.01 Sodium Potassium Chloride Carbon Dioxide Anion Gap BUN Creatinine Estimated GFR/1.73 m2 Glucose Calcium Magnesium C-Reactive Protein Procalcitonin
[2021-05-02 09:10] VITALS: BP 167/74; PULSE 63; RESP 16; TEMP 36.9; O2SAT 97
[2021-05-02] MEDS: Pantoprazole 40 MG VIAL IVP (09:31)
[2021-05-02] MEDS: Normal Saline Flush 10 ML SYR IVP ×3 (09:31→21:39)
[2021-05-02 11:02] LABS: Hemoglobin A1C 7.5 % (<5.7)
[2021-05-02] MEDS: Multivitamin w/Minerals TAB 1 TAB PO (11:05)
[2021-05-02] MEDS: Ascorbic Acid 500 MG TAB PO (11:06)
[2021-05-02] MEDS: Potassium Chloride 20 MEQ TABCR 40 MEQ PO (11:06)
[2021-05-02 11:11] LABS: BE (Venous) 9 mmol/L (-2-3); HCO3 (Venous) 33 mmol/L (23-28); O2 Sat (Venous) 76 %; TCO2 (Venous) 30 mmol/L (24-29); pCO2 (Venous) 45 mmHg (41-51); pH (Venous) 7.47 (7.31-7.41); pO2 (Venous) 43 mmHg
[2021-05-02 11:15] LABS: POTASSIUM,URINE RANDOM 32 mmol/L; Sodium, Urine 138 mmol/L
--- NOTE | 2021-05-02 11:32 | PTTR_ITS ---
Date of service: 05/02/21 Time of Service: 11:32 PT Notes Visit Reasons: Osteomyelitis, Cellulitis Physical Therapy Inpatient Treatment Note Date: 05/02/2021 Precautions: Fall. Standard. Activity as tolerated. Subjective: Reports much improved ambulation with post op shoe on the L. Objective: General Observation: In NAD. Mental Status: A and O x 4 Pain: Denies Bed Mobility/Transfers: Sit to stand independent Stand to sit independent Bed to reclining chair independent Reclining chair to bed independent Gait: Tolerates up to 50 feet of level surface ambulation using the FWW. Step height on the right side decreased. Step length on right side decreased. Ky phosis and dextroscoliosis aggravated by use of Aircast boot on the right side without any footwear on the left side. Balance: Static Sitting: Normal Dynamic Sitting: Normal Static Standing: Fair Dynamic Standing: Fair Assessment: Now modified independent inside her room using the FWW. Post-op shoe on the L helping with minimizing leg length discrepancy from using air cast boot on the R. This will minimize chronic pain from impaired postural alignment and leg length discrepancy. Has all equipment she needs at home. DISCHARGE RECOMMENDATIONS: Patient will benefit from home health PT services in order to progress mobility level using least restrictive assistive ambulatory device, assess home safety, identify additional equipment needs, and establish a functional maintenance program that will increase ability of patient to remain at home. TREATMENT CODE/TIME: 71439 x 17 minutes beginning at 11:32 PM.
[2021-05-02] MEDS: Metoprolol CR 100 MG TABCR PO (11:48)
--- NOTE | 2021-05-02 13:13 | W.INDIABCONS ---
Date of service: 05/02/21 Time of Service: 13:13 Diabetes Inpatient Consult DESCRIPTION/ASSESSMENT: 63 year old female admitted with osteomyelitis of foot with hx of poorly controlled DM, with morbid obesity, RA with long standing use of steroids. Home DM meds: januvia 50 mg qd, lispro 10 u at noon, lantus 42 u HS. Michelle reports her blood sugars tend to be > 250 mg/dl most of the day, especially when taking steroid for her RA. Discussed with her need for additional nutrients to help with right ankle foot infection, recommend adding MIV, Vit C and Zinc sulfate. Reviewed with her benefits of using a continuous glucose monitor to help with her fluctuating blood sugars, not interested at this time. Recommend increasing basal insulin at time of discharge for better basal coverage. Following diabetic diet with 100% intake. Estimated Needs: [id number] kcal, 100-120 g protein INTERVENTION: add MVI, 500 mg Vit C bid, 220 mg zinc sulfate x 14 days, 1 oz liquid protein TID educated Michelle on role of blood sugars on healing and importance of tighter control, encouraged Michelle to follow up as outpatient for Diabetes self management education PLAN: will monitor po intake, labs and weight At time of discharge, recommend switching to tresiba as basal insulin for better coverage, recommend 1/10 meal time coverage, may also benefit from SGLT 2i or GLP1 RA Time Spent in Nutritional Counseling and Treatment: 15
[2021-05-02] MEDS: cefTRIAXone 2 GM/50 ML BAG IVPB (14:10)
--- NOTE | 2021-05-02 15:11 | W.PM.PROGNOT ---
Date of Service Date of service: 05/02/21 Time of Service: 15:11 Assessment and Plan Assessment and plan (1) Bacteremia due to group B Streptococcus: Status: Acute Assessment and plan: vancomycin discontinued. Rocephin [address] PICC line and check echocardiogram. plan for 10 more days of Rocephin w/ repeat inflammatory markers in two weeks. anticipate discharge home tomorrow. (2) Osteomyelitis of foot, acute: Status: Suspected Assessment and plan: at this point Dr. Haas does not believe this to be osteomyelitis but d/t chronic bone damage from her RA and chronic steroid useage. He recommends treating her bacteremia and if she continues to have signs of infection then proceed w/ definitive bone biopsy. (3) Cellulitis and abscess of foot: Status: Acute Assessment and plan: superficial ulcer of right medial ankle d/t mechanical abrasion of the ankle from her AFO. Keep AFO off for now and treat w/ topical wound care. She probably needs better padding in her AFO. (4) Diabetes mellitus: Status: Chronic Assessment and plan: FBS improved (106) w/ her other glucose levels running 200 to mid 200's. continue CHO coverage and high dose corrective scale. I anticipate once we wean her steroids this will improve. 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 patient was on stress dose hydrocortisone on admission but now is on prednisone 40 mg daily. I will start to taper tomorrow. cont. NPH while on prednisone. Qualifiers: Rheumatoid arthritis location: multiple sites Rheumatoid factor presence: unspecified presence Qualified Code(s): M06.9 - Rheumatoid arthritis, unspecified (6) Pain of left calf: Status: Acute Assessment and plan: check US of her legs to r/o DVT (7) DVT prophylaxis: Status: Acute Assessment and plan: heparin 5000 units SC q8h Subjective Subjective Interval history since last seen: I discussed Dr. Haas's consultation w/ the patient along w/ her MRI findings and her negative repeat blood cultures. I explained to her that we would treat her Group B Strep bacteremia w/ 2 weeks of Rocephin 2 gm daily and then stop antibiotics and repeat her inflammatory markers. If they go up off antibiotics then we would need to re-image her right foot w/ either another MRI or a nuclear bone scan or go for bone biopsy to rule in/out osteomyelitis. Her echo never got ordered so we will get this tomorrow. I did order a PICC line to be placed so she can be discharged on Rocephin 2 gm daily for another 10 days. her venous duplex of her legs was negative for DVT. Exam Narrative Exam Narrative: Obese female sitting in her chair, alert and oriented x 3 Lungs: clear Heart: RRR Abdomen: obese but otherwise benign Legs: edematous, superficial ucler over right medial malleolus is healing; right bull ladle tender to palpation; she has 2+ pitting edema both legs Objective Last Vital Signs Temp 36.9 C 05/02/21 09:10 Pulse 63 05/02/21 09:10 Resp 16 05/02/21 09:10 BP 167/74 H 05/02/21 09:10 Pulse Ox 97 05/02/21 09:10 Laboratory Results - last 24 hr 05/02/21 05/02/21 05/02/21 06:26 06:26 06:26 WBC RBC Hgb Hct MCV MCH MCHC RDW Plt Count MPV Immature Gran % Neutrophils % Lymphocytes % Monocytes % Eosinophils % Basophils % Nucleated RBC % Absolute Neutrophils Absolute Lymphocytes Absolute Monocytes Absolute Eosinophils Absolute Basophils VBG pH VBG pCO2 VBG pO2 VBG HCO3 VBG Total CO2 VBG O2 Saturation VBG Base Excess Sodium 143 Potassium 3.1 L Chloride 105 Carbon Dioxide 31.2 Anion Gap 6.8 BUN 14 Creatinine 0.9 Estimated GFR/1.73 m2 >= 60.00 Glucose 114 H D Hemoglobin A1c Calcium 8.6 Magnesium 1.6 L C-Reactive Protein 3.03 H Procalcitonin 0.2 Ur Random Sodium Ur Random Potassium Vancomycin Trough 05/02/21 05/02/21 05/02/21 06:26 06:26 10:30 WBC 7.68 RBC 3.83 L Hgb 11.5 Hct 35.2 L MCV 91.9 MCH 30.0 MCHC 32.7 RDW 14.1 Plt Count 241 MPV 10.1 Immature Gran % 0.4 Neutrophils % 57.5 Lymphocytes % 32.7 Monocytes % 8.6 Eosinophils % 0.7 Basophils % 0.1 Nucleated RBC % 0 Absolute Neutrophils 4.42 Absolute Lymphocytes 2.51 Absolute Monocytes 0.66 Absolute Eosinophils 0.05 Absolute Basophils 0.01 VBG pH VBG pCO2 VBG pO2 VBG HCO3 VBG Total CO2 VBG O2 Saturation VBG Base Excess Sodium Potassium Chloride Carbon Dioxide Anion Gap BUN Creatinine Estimated GFR/1.73 m2 Glucose Hemoglobin A1c 7.5 H Calcium Magnesium C-Reactive Protein Procalcitonin Ur Random Sodium 138 Ur Random Potassium 32 Vancomycin Trough 05/02/21 05/02/21 11:03 13:10 WBC RBC Hgb Hct MCV MCH MCHC RDW Plt Count MPV Immature Gran % Neutrophils % Lymphocytes % Monocytes % Eosinophils % Basophils % Nucleated RBC % Absolute Neutrophils Absolute Lymphocytes Absolute Monocytes Absolute Eosinophils Absolute Basophils VBG pH 7.47 H VBG pCO2 45 VBG pO2 43 VBG HCO3 33 H VBG Total CO2 30 H VBG O2 Saturation 76 VBG Base Excess 9 H Sodium Potassium Chloride Carbon Dioxide Anion Gap BUN Creatinine Estimated GFR/1.73 m2 Glucose Hemoglobin A1c Calcium Magnesium C-Reactive Protein Procalcitonin Ur Random Sodium Ur Random Potassium Vancomycin Trough 16.0
--- NOTE | 2021-05-02 16:19 | CMPROGNOTE_ITS ---
- If Service Date Differs Date of service: 05/02/21 Time of Service: 16:19 Care Management Progress Note S/O: Michelle was sitting up in her chair with her legs elevated when CM met with her. She was pleasant and easily engaged in conversation. She is anticipating being discharged home tomorrow and shares that she is happy to not need surgery at this time. She has a walker and a scooter at home and feels she is ready for discharge. CM continues to support discharge planning needs. A: 65 year old female admitted to [facility] on 04/28/21 for Osteomyelitis, Cellulites P: Michelle will likely be discharged home with PT. She will follow up with her PCP and plan of care and transport with family. CM will continue to support Michelle and her discharge planning needs.
--- NOTE | 2021-05-02 17:21 | CHAPLAIN ---
Michelle was in the recliner with her leg elevated when I visited. She told me that her visits in the afternoons and she in touch with other family members by phone. She expects to be discharged soon. She was pleasant but not interested in further conversation. We talked a bit about the book, historical fiction, that she was reading.
[2021-05-02] MEDS: POTASSIUM CHLORIDE 20 MEQ/100 ML BAG 50 MEQ IVPB ×2 (17:41→20:48)
[2021-05-02 17:53] VITALS: BP 125/75; PULSE 63; RESP 16; TEMP 36.7; O2SAT 95
[2021-05-02] MEDS: Potassium Chloride 10 MEQ CAPCR 40 MEQ PO (19:12)
[2021-05-02] MEDS: Protein Nutritional Supplement 16 GM 1 OUNCE PACKET PO (19:15)
[2021-05-02] MEDS: Atorvastatin 10 MG TAB PO (21:39)
[2021-05-02] MEDS: Zolpidem 10 MG TAB PO (21:39)
[2021-05-02] MEDS: Montelukast 10 MG TAB PO (21:39)
[2021-05-02] MEDS: Insulin Glargine 300 UNITS/3 ML PEN 20 UNITS SC (21:50)
[2021-05-02 23:27] VITALS: BP 154/67; PULSE 62; RESP 16; TEMP 36.4; O2SAT 94
[2021-05-03] MEDS: oxyCODONE 15 MG TAB PO ×4 (00:58→14:09)
[2021-05-03] MEDS: VANCOMYCIN/WATER (PEG) 1 GM/200 ML BAG IV ×2 (01:12→14:59)
[2021-05-03] MEDS: Heparin 5,000 UNITS/ML VIAL 5000 UNITS SC ×2 (05:13→13:59)
--- NOTE | 2021-05-03 07:00 | DI.US_ITS ---
APPROVED REPORT EXAM: Comprehensive 2D, Doppler, and color-flow Echocardiogram Patient Location: In-Patient Room/Bed: [address] Counselor: Daiana Morejon RDCS (AE) Indications: Bacteremia, r/o endocarditis Other Information Study Quality: Adequate Conclusion Normal left ventricular wall thickness and chamber size. Estimated ejection fraction is 60 to 65%. There are no segmental wall motion abnormalities Normal right ventricular size and systolic function Both atria are normal in size The aortic valve is trileaflet and sclerotic without stenosis or regurgitation Mild to moderate mitral annular calcification. Trace mitral regurgitation Structurally normal tricuspid valve with trace regurgitation Structurally normal pulmonic valve Wall motion Left Ventricle The left ventricle is normal size. The left ventricular systolic function is normal. The left ventric ular ejection fraction is within the normal range. There is normal left ventricular wall thickness. T here is normal LV segmental wall motion. There is no ventricular septal defect visualized. LVEF is 60 -65%. Right Ventricle Right ventricle is grossly normal in size. Right ventricular systolic function is grossly normal. Atria The left atrium size is normal. The right atrium size is normal. The interatrial septum is intact wit h no evidence for an atrial septal defect. Aortic Valve The Aortic valve is sclerotic. Aortic valve is trileaflet. There is no aortic valvular stenosis. No a ortic regurgitation is present. Mitral Valve Mild to moderate mitral annular calcification. No evidence of mitral valve stenosis. Trace mitral reg urgitation. Tricuspid Valve The tricuspid valve is normal in structure. There is no tricuspid valve stenosis. Trace tricuspid reg urgitation. Unable to assess PA pressure. Pulmonic Valve The pulmonary valve is normal in structure. There is no pulmonic valvular stenosis. There is no pulmo haja valvular regurgitation. Great Vessels The aortic root is normal in size. The ascending aorta is mildly dilated. Aortic arch is normal in ca liber. IVC is normal in size and collapses >50% with inspiration. Pericardium There is no pericardial effusion. 2D Dimensions IVSD d PLAX 1.10 cm F: 0.6-1.0 LV Vol A2C d MOD 78.3 mL LVPW d PLAX 1.11 cm F: 0.6 - 1.0 LV Vol A4C d MOD 78.2 mL LVID d PLAX 4.10 cm F: 3.8 - 5.2 LA Area A4C s MOD 28.76 cm2 LVDs 2.90 cm F: 2.2 - 3.5 LA Area A2C s MOD 18.64 cm2 Ao Root d 2.52 cm F: 2.7 - 3.3 LV EF A4C MOD 55.0 % RA Area A4C 14.82 cm2 LV EF A2C MOD 58.9 % Ao Asc Diam d 3.21 cm F: 2.3 - 3.1 LV EF Biplane MOD 56.4 % LV EF Teichholz 55.9 % SV 44.42 mL LVEF (Romero's) 56.39 % F: 54 - 74 LV Volume 78.77 mL F: 46 - 106 LV Volume Index 36.13 mL/m2 F: 29 - 61 LV Vol Biplane MOD 78.8 mL FS 28.80 % M-Mode TAPSE 1.86 cm (M/F) >1.7 LV Diastology MV E' medial 0.083 (>0.07 m/s) E/A Ratio 1.1 LV E/e MED 11.30 (<14) MV E Vmax 0.94 (0.4-1.3 m/s) MV E' lateral 0.083 (>0.1 m/s) MV A Vmax 0.85 (0.4-1.3 m/s) LV E/e LAT 11.30 (<14) MV E/A Ratio 1.11 MV E/E' medial 11.33 MV E/E' lateral 11.33 Aortic Valve LVOT Area 2.93 cm2 AoV Area Vmax 1.94 cm2 LVOT Vmax 1.23 m/s TATE Mean Ciro. 1.53 cm2 LVOT Mean Ciro. 0.71 m/s LVOT Peak Grad 6.1 mmHg LVOT Mean Grad 2.5 mmHg LVOT VTI 0.268 m LVOT Diam s 1.90 cm AoV Vmax 1.86 m/s Velocity Ratio 0.66 AoV Mean Ciro. 1.36 m/s AoV Peak Grad 13.9 mmHg LVOT SV 78.29 mL AoV Mean Grad 8.1 mmHg AoV VTI 0.384 m AoV Area VTI 2.04 cm2 Mitral Valve MV DT 203 (160-240 msec) MV PHT 59 msec MV Area PHT 3.74 cm2 MV VTI 0.287 m MV Area VTI 2.73 (4.0-6.0 cm2) Pulmonary Valve PV Vmax 1.01 (0.5-1.5 m/s) RVOT Peak Gr. 2.79 mmHg PV Peak Grad 4.1 mmHg RVOT Mean Gr. 1.45 mmHg PV Mean Grad 2.1 mmHg RVOT VTI 0.177 m PV VTI 0.249 m RVOT Vmax 0.84 m/s
[2021-05-03 07:45] LABS: Abs Immature Grans 0.06 10^3/uL (0.0-0.06); Absolute Basophil Count 0.02 10^3/uL (0.0-0.2); Absolute Eosinophil Count 0.14 10^3/uL (0.0-0.7); Absolute Lymphocyte Count 2.56 10^3/uL (1.2-3.4); Absolute Monocyte Count 0.73 10^3/uL (0.1-0.8); Absolute Neutrophil Count 3.35 10^3/uL (1.2-6.7); Basophils % 0.3; HCT 32.7 % (36.0-46.0); HGB 10.4 g/dL (11.2-15.7); Immature Grans % 0.9; Lymphocytes % 37.3; MCH 29.4 pg (27.0-33.0); MCHC 31.8 % (32.0-36.0); MCV 92.4 fL (80-95); MPV 10.8 fL (8.0-11.0); Monocytes % 10.6; Neutrophils % 48.9; Nucleated RBC 0 %; Platelet Count 231 10^3/uL (130-400); RBC 3.54 10^6/uL (3.93-5.22); RDW 13.9 % (11.7-14.6); RDW-SD 47.5 fL; WBC 6.86 10^3/uL (4.4-10.8)
[2021-05-03 07:46] VITALS: BP 107/55; PULSE 82; RESP 24; TEMP 36.5; O2SAT 94
[2021-05-03] MEDS: Budesonide/Formoterol 160/4.5 6 GM 60 PUFF INH IH (07:48)
[2021-05-03] MEDS: Docusate Sodium 100 MG CAP PO ×2 (07:49→13:58)
[2021-05-03] MEDS: Polyethylene Glycol 3350 17 GM PACKET PO (07:49)
[2021-05-03] MEDS: Furosemide 40 MG TAB PO (07:49)
[2021-05-03] MEDS: Aspirin 81 MG CHEW PO (07:49)
[2021-05-03] MEDS: Multivitamin w/Minerals TAB 1 TAB PO (07:49)
[2021-05-03] MEDS: Amitriptyline 25 MG TAB PO (07:49)
[2021-05-03] MEDS: Chlorthalidone 25 MG TAB PO (07:49)
[2021-05-03] MEDS: Metoprolol CR 100 MG TABCR PO (07:50)
[2021-05-03] MEDS: Potassium Chloride 10 MEQ CAPCR 40 MEQ PO ×2 (07:50→13:58)
[2021-05-03] MEDS: predniSONE 20 MG TAB 30 MG PO (07:50)
[2021-05-03] MEDS: Protein Nutritional Supplement 16 GM 1 OUNCE PACKET PO (07:51)
[2021-05-03] MEDS: Folic Acid 1 MG TAB PO (07:51)
[2021-05-03] MEDS: Ascorbic Acid 500 MG TAB PO (07:51)
[2021-05-03] MEDS: amLODIPine 10 MG TAB PO (07:51)
[2021-05-03] MEDS: tiZANidine 4 MG TABLET 8 MG PO ×2 (07:51→13:58)
[2021-05-03] MEDS: Insulin NPH-Human 300 UNITS/3 ML PEN 20 UNIT SC (07:52)
[2021-05-03] MEDS: Lisinopril 20 MG TAB 40 MG PO (07:52)
[2021-05-03 08:00] LABS: Magnesium 1.9 mg/dL (1.8-2.4)
[2021-05-03 08:01] LABS: Anion Gap 5.4 mmol/L (3-11); BUN 18 mg/dL (7-18); C-Reactive Protein 1.65 mg/dL (0.0-0.3); CO2 32.6 mmol/L (21.0-32.0); CREATININE 0.8 mg/dL (0.55-1.02); Calcium 8.4 mg/dL (8.5-10.1); Chloride 106 mmol/L (98-107); Glucose 86 mg/dL (74-106); Potassium 3.9 mmol/L (3.5-5.1); Sodium 144 mmol/L (136-145)
[2021-05-03] MEDS: Insulin Aspart 300 UNITS/3 ML PEN SC ×4 (08:14→17:03)
[2021-05-03 08:16] VITALS: BP 166/85; PULSE 69; TEMP 36.8; O2SAT 96
--- NOTE | 2021-05-03 11:00 | PDOC.CMDIS ---
- If Service Date Differs Date of service: 05/03/21 Time of Service: 16:27 LACE Index Scoring Tool - Questions: Length of Stay (in days): 4 - 6 Acuity (Admit via E.D.?): Yes E.D. Visits: 3 - Answers: Total Score: 10 Risk of Readmission: High Risk Care Management Discharge Reason for Hospitalization: Cellulitis and abscess of foot Discharge Plan: Michelle will return home with new orders through [facility] for RT/PT with new IV ABX home infusion for treatment of cellulitis through [facility], coordinated by this freelance writer. [facility] reported delivery is planned, tentatively for 1200 tommorrow. CM will need to confirm with Beatriz of [facility] tomorrow and confirm timing with [facility]. Patient costs reviewed and confirmed with Michelle as well. She will transport via private vehicle with her . Patient/Family Education Needs: Review discharge instructions, discuss Ask Me Three. Services Needed at Discharge: Home Health Care Services (RN/PT. ), Infusion Therapy (Home Infusion through [facility] )
[2021-05-03] MEDS: cefTRIAXone 2 GM/50 ML BAG IVPB (13:58)
[2021-05-03 15:47] VITALS: BP 124/78; PULSE 74; RESP 17; TEMP 36.8; O2SAT 96
--- NOTE | 2021-05-03 16:43 | W.PM.DS.N ---
Date of service: 05/03/21 Time of Service: 16:43 DS: Diagnosis Discharge Diagnosis (1) Bacteremia due to group B Streptococcus: Status: Acute Asessment and Plan: 65 yr old female w/ IDDM, OA, RA who is on immunosuppressive mediations (Arava and prednisone) and has hx of ORIF of her right ankle and has chronic fixation devices in her right ankle who wears and AFO and has developed an ulcer over the right medial ankle. She presented to the ER @ [facility] due to one day hx of fevers and rigors and acute confusion. She was found to be septic with WBC 12,800, CRP 19.8, procalcitonine 0.2. Blood cultures were obtained and xray of her right foot/ankle were obtained. Xray demonstrated: Limited exam. Marked soft tissue swelling. Findings are suspicious for osteomyelitis of the 5th metatarsal head. Blood cultures grew Group B Streptococcus Agalactiae. She was started on Vancomycin and Rocephin. MRI of the right lower leg/foot was obtained and demonstrated: COMPARISON: Plain films 26 March 2021 FINDINGS: The exam is somewhat limited by artifact from metallic hardware. Hardware is noted in the distal tibia. There has been previous resection of the distal fibula. There is diffuse edema in the subcutaneous fat of the ankle and visualized portions of the foot. The findings are greatest dorsally and an and laterally. There is no drainable soft tissue abscess. . The hardware causes poor fat suppression. There is no abnormal abnormal high signal within the bones or abnormal enhancement within the bone following IV gadolinium. The tendons appear intact. There is no fluid within the tendon sheaths or significant joint effusion. IMPRESSION: Artifact from hardware somewhat limits the exam. No evidence osteomyelitis or drainable collection. Podiatry was consulted and she was seen by Dr. Saman Haas whose impression is that the changes on her xray are consistent w/ chronic steroid useage and old fractures. He felt that the wound ove rthe medial ankle is clean and fairly superficial and expected that the wound would heal up w/ topical wound care. Wound care nurse was consulted and the superficial wound was treated w/ cleansing w/ skintegrity and gauze and Anasept gel was applied to the wound bed and Mepilex dressing was applied. It was recommended that the wound cover be changed ever 3 days and that the patient keep pressure off the wound. I spoke w/ the patient and her about her AFO and recommneded extra padding be applied to the inside and the indicated that he was going to cut an opening in the side of the AFO for the medial malleolus and reapply the gel foam over the opening to pad her wound. At the time of discharge her wound was healing nicely and was reduced in size. Her repeat blood cultures from 04/30 came back no growth. Because of the bactermia an echocardiogram was performed and showed no vegetations. She has normal LV and RV function. See report below: Conclusion Normal left ventricular wall thickness and chamber size. Estimated ejection fraction is 60 to 65%. There are no segmental wall motion abnormalities Normal right ventricular size and systolic function Both atria are normal in size The aortic valve is trileaflet and sclerotic without stenosis or regurgitation Mild to moderate mitral annular calcification. Trace mitral regurgitation Structurally normal tricuspid valve with trace regurgitation Structurally normal pulmonic valve Once the blood cultures came back negative, then a midline was placed in her left arm for completion of her Rocephin 2 gm daily. She will receive 10 more days through home health infusion. Repeat labs were ordered to be done in 2 weeks. (2) Osteomyelitis of foot, acute: Status: Ruled-out (3) Cellulitis and abscess of foot: Status: Acute (4) Diabetes mellitus: Status: Chronic (5) Rheumatoid arthritis: Status: Chronic (6) Pain of left calf: Status: Acute Discharge Plan Disposition Patient Disposition: HOME W/HOME HEALTH SERVICE Condition: Improving Discharge Details Reason For Visit: Osteomyelitis, Cellulitis Admit Date/Time: 04/28/21 17:14 Admit Provider: Aydin De Los Santos Attending Provider: Aydin De Los Santos Primary Care Provider: Chito Brunner Home Meds and New Rx's Prescriptions: Continued furosemide 40 MG tablet 40 mg PO DAILY PRNRF: 0 potassium chloride 10 MEQ capsule, extended release 10 meq PO DAILY PRNRF: 0 Lantus U-100 Insulin 100 UNIT/ML solution 42 units Sub-Q DIRECTED RF: 0 albuterol sulfate 3 ML solution for nebulization 1 unit Inhalation QID PRNRF: 0 atorvastatin [Lipitor] 10 MG tablet 10 mg PO DAILY RF: 0 fluconazole 150 MG tablet 150 mg PO .X1 PRNRF: 0 methylprednisolone 4 MG tablet 4 mg PO DAILY RF: 0 amlodipine 5 MG tablet 10 mg PO BID RF: 0 leflunomide [Arava] 20 MG tablet 20 mg PO DAILY RF: 0 esomeprazole magnesium [Nexium] 40 MG capsule,delayed release(DR/EC) 40 mg PO DAILY RF: 0 betamethasone, augmented [Diprolene (augmented)] 50 GM ointment 1 applic Topical DAILY PRNRF: 0 folic acid 1 MG tablet 1 mg PO DAILY RF: 0 montelukast 10 MG tablet 10 mg PO DAILY RF: 0 zolpidem 10 MG tablet 10 mg PO HS RF: 0 calcium carbonate-vitamin D3 [Calcium 600 + D(3)] 1 EACH tablet 1 tab PO BID RF: 0 amitriptyline 25 mg Tablet 25 mg PO DAILY RF: 0 prednisone 20 mg tablet 5 mg PO DAILY RF: 0 metoprolol succinate 50 mg Tablet Extended Release 24 Hr 50 mg PO DAILY RF: 0 aspirin 81 mg Tablet,Chewable 81 mg PO DAILY RF: 0 hydrochlorothiazide 25 mg Tablet 25 mg PO DIRECTED RF: 0 Januvia 50 mg Tablet 50 mg PO DAILY RF: 0 Multi Vitamin 9 mg iron/15 mL Liquid 1 mg PO DAILY RF: 0 hydromorphone 8 mg Tablet 8 mg PO Q6H PRN PRNRF: 0 tizanidine 2 mg Tablet 2 mg PO Q8H PRN PRNRF: 0 lisinopril 10 mg Tablet 10 mg PO DAILY RF: 0 insulin lispro [Humalog KwikPen Insulin] 100 unit/mL Insulin Pen 10 unit SUBCUT 1200 RF: 0 Breo Ellipta 200-25 mcg/dose Blister With Device 2 ea INHALATION QHS RF: 0 Humira 10 mg/0.2 mL Syringe Kit 10 mg SUBCUT RF: 0 albuterol sulfate 0.63 mg/3 mL Solution For Nebulization 2 mg inhalation PRN PRNRF: 0 diazepam [Valium] 2 mg tablet 2 mg PO BID PRN (Reason: back pain) Qty: 20 RF: 0 Narcan 4 mg/actuation spray,non-aerosol 1 spray RICCI ONCE PRN (Reason: opioid overdose) Qty: 2 RF: 0 Discharge Instructions Instructions: Sepsis (DC), Bacteremia (DC) Additional Instructions: You should have follow up labs done in 2 weeks upon completion of your antibiotics. If you get fever, chills, or increased redness/swelling/pain in the foot then you should be re-evaluated. You may need to see an ankle and foot regulatory affairs strategy specialist to consider removal of the hardware should you have continued infections Stand Alone Forms: Nursing Discharge Form Referrals: Chito Brunner [Primary Care Provider] - (Please call tomorrow to make a follow up appointment for 1-2 weeks) Activity:: Activity as Tolerated Equipment/Supplies:: No Equipment Needed Diet:: Carb Counting Discharge Orders Discharge Orders: Discharge Order (Routine); Ordered 05/03/21 Ordered By: Chito Reagan Other Ambulatory Orders: Complete Blood Count w/Diff (Routine) Timeframe: 2 Weeks Facility: [facility] - Location: Laboratory Outpatient Ordered By: Chito Reagan Comprehensive Metabolic Panel (Routine) Timeframe: 2 Weeks Facility: [facility] - Location: Laboratory Outpatient Ordered By: Chito Reagan C-Reactive Protein (Routine) Timeframe: 2 Weeks Facility: [facility] - Location: Laboratory Outpatient Ordered By: Chito Reagan Discharge Data Discharge Date/Time-TO BE ENTERED AT DEPARTURE: 05/03/21 18:17 DS: Summary Time Spent with Patient providing and/or coordinating discharge services: Less than 30 minutes Specific discharge activities: coordinating home health, reviewing her labs/echo/xray/MRI w/ her and her Status at Discharge Functional status at discharge: uses cane/walker Overall status at discharge: patient is progressing back to baseline Mental Status: mental status grossly normal Speech and Movement: speech and movement normal Mood: congruent mood Affect: normal affect Exam Narrative Exam Narrative: Mrs. Mackenzie is sitting up in her chair dressed and ready to return home. She denies any complaints other than her usual pain in her right foot. She is wearing her AFO. I did not take down her dressing and her AFO. At this point she just needs to complete her 14 days of Rocephin and see an orthopedic ankle/behavior management specialist. Psych Mental Status: mental status grossly normal Speech and Movement: speech and movement normal Mood: congruent mood Affect: normal affect DS: Data Vitals/I&O Vitals and I&O: Vital Signs Temperature 36.8 C 05/03/21 15:47 Temperature Source Tympanic 05/03/21 15:47 Pulse 74 05/03/21 15:47 Pulse Rhythm Regular 05/03/21 15:38 Pulse 112 H 04/28/21 18:01 Respiratory Rate 17 05/03/21 15:47 Respiratory Effort 05/03/21 15:38 Respiratory Depth Normal 05/03/21 15:38 Respiratory Pattern Normal 05/03/21 15:38 Blood Pressure 124/78 05/03/21 15:47 Blood Pressure Mean 84 04/28/21 18:01 Blood Pressure Position Supine 04/28/21 16:02 Pulse Oximetry 96 05/03/21 15:47 Oxygen Delivery Method Room Air 05/03/21 15:47 Oxygen Flow Rate 0 05/03/21 15:47 Pain Level 0 05/03/21 15:47 Comment 04/28/21 20:29 Intake & Output 05/02/21 05/03/21 05/03/21 23:59 11:59 23:59 Intake Total 408.333 / 608.333 210 / 260 50 / 260 Output Total 1800 / 3050 1000 / 1000 Balance -1391.667 / -2441.667 -790 / -740 50 / -740 Weight 65.7 kg Intake: IV 408.333 / 608.333 210 / 260 50 / 260 Output: Urine 1800 / 3050 1000 / 1000 Other: Urine Color Yellow Yellow Urine Appearance Clear Clear Clear Urine Odor Normal Normal Comment ambulated self to toilet Stool Size Moderate Stool Characteristics Formed Brown Voiding Methods Bedside Commode Bedside Commode Data Completed and Pending Labs on day of discharge: Labs from last 24 hours 05/03/21 05/03/21 05/03/21 06:40 06:40 06:40 WBC 6.86 RBC 3.54 L Hgb 10.4 L Hct 32.7 L MCV 92.4 MCH 29.4 MCHC 31.8 L RDW 13.9 Plt Count 231 MPV 10.8 Immature Gran % 0.9 Neutrophils % 48.9 Lymphocytes % 37.3 Monocytes % 10.6 Eosinophils % 2.0 Basophils % 0.3 Nucleated RBC % 0 Absolute Neutrophils 3.35 Absolute Lymphocytes 2.56 Absolute Monocytes 0.73 Absolute Eosinophils 0.14 Absolute Basophils 0.02 Sodium 144 Potassium 3.9 D Chloride 106 Carbon Dioxide 32.6 H Anion Gap 5.4 BUN 18 Creatinine 0.8 Estimated GFR/1.73 m2 >= 60.00 Glucose 86 Calcium 8.4 L Magnesium 1.9 C-Reactive Protein 1.65 H Urine Chloride 05/02/21 10:30 WBC RBC Hgb Hct MCV MCH MCHC RDW Plt Count MPV Immature Gran % Neutrophils % Lymphocytes % Monocytes % Eosinophils % Basophils % Nucleated RBC % Absolute Neutrophils Absolute Lymphocytes Absolute Monocytes Absolute Eosinophils Absolute Basophils Sodium Potassium Chloride Carbon Dioxide Anion Gap BUN Creatinine Estimated GFR/1.73 m2 Glucose Calcium Magnesium C-Reactive Protein Urine Chloride 150 Preliminary micro results at discharge 04/30/21 11:27 Blood Culture - Preliminary Blood NO GROWTH 72 HOURS 04/30/21 10:43 Blood Culture - Preliminary Blood NO GROWTH 72 HOURS [facility] Medical History (Updated 05/04/21 @ 11:13 by Chito Reagan) Diabetes mellitus Pain Rheumatoid arthritis Surgical History Status post total left knee replacement Social History Smoking/Tobacco Use Status: Never Smoking risk assessment performed?: Yes Alcohol Intake: current Alcohol Intake frequency: holidays/special occasions only Drug use: Never Do you feel safe at home: Yes Do you feel safe in your relationship?: Yes
--- NOTE | 2021-05-03 16:49 | PDOC.HHF2F ---
Home Health Certification Home Health Certification: 1. Encounter Date and Reason I certify that Michelle Mackenzie was seen by Chito Reagan on 05/03/21 and that I had a [id number] encounter with this patient that meets the physician face to face encounter requirements. 2. Clinical Findings Supporting Skilled Need and Homebound Status I certify that home health services are medically necessary, include either intermittent residential and/or physical/speech therapy, and that this patient is homebound in that absences from the home require considerable and taxing effort and are infrequent or of short duration, or are attributable to the need to receive medical care. [X] (a) Attached documentation from encounter provides clinical findings supporting skilled need and homebound status (including what assistance patient requires to leave the home). The encounter with the patient was in whole, or in part, for the following medical condition, which is the primary reason for home health care: Osteomyelitis, Cellulitis Alf: visiting nurse to evaluate and treat patient for her Group B Strep bacteremia and monitor her response to antibiotics and obtain labs and coordinate new orders w/ her PCP Physical Therapy: P.T. to evaluate and treat her ambulatory dysfunction from her OA and RA and chronic right foot pain; improve gait stability, balance and strength Speech Therapy: Homebound: patient is home bound due to severe right foot pain that limits her ambulatory function and jeopardizes her safety in traveling outside her home 3. Certification and Authentication I certify that I composed the above information based on my clinical judgement relating to this patient's medical condition and, if applicable, clinical findings communicated to me by the NPP or inpatient physician who performed the Home Health Referral. All further orders will be obtained through ___Chito Brunner (Community Based Physician - PCP)
== END 2021-05-03 18:17 | disposition home health service (06) | DRG 871 ==
LOC: ER 17:20 → MS 18:19
PROVIDERS: Internal Medicine; Admitting Provider Family Medicine; Emergency Provider Emergency Medicine; PCP Nurse Practitioner; Visit Provider Family Medicine
DX: L89.523 Pressure ulcer of left ankle, stage 3 (principal); L03.115 Cellulitis of right lower limb; D84.821 Immunodeficiency due to drugs; L02.611 Cutaneous abscess of right foot; A40.9 Streptococcal sepsis, unspecified; N17.9 Acute kidney failure, unspecified; M86.171 Other acute osteomyelitis, right ankle and foot; M06.9 Rheumatoid arthritis, unspecified; Z79.4 Long term (current) use of insulin; B95.1 Streptococcus, group B, as the cause of diseases classified elsewhere; Z79.899 Other long term (current) drug therapy; L40.50 Arthropathic psoriasis, unspecified; Z79.52 Long term (current) use of systemic steroids; R26.2 Difficulty in walking, not elsewhere classified; Z96.652 Presence of left artificial knee joint; Z20.822 Contact with and (suspected) exposure to COVID-19; E11.65 Type 2 diabetes mellitus with hyperglycemia; M79.662 Pain in left lower leg
CPT/HCPCS: 36410; 36415; 80048; 80053; 82805; 84145; 87040; 87077; 87635; 93306; 94640; 96361; 96365; 96375; 97162; 97530; 99285; 71045; 73620; 73723; 80202; 81003; 81015; 82436; 83036; 83605; 83735; 84132; 84133; 84300; 84443; 85025; 86140; 87086; 87186; 93970; 99223; 99232; 99233; 99239; J1644; J1720; J3480; J3490; J7512

== ENCOUNTER 2021-05-07 02:44 | Outpatient (CLI) | payer MEDICARE, OTHER, SELFPAY ==
--- NOTE | 2021-05-07 | DI.MAMMO_ITS ---
Exam(s) MG MAMMO SCREENING 60 MIN DUR EXAM: MG MAMMO SCREENING 60 MIN DUR CLINICAL HISTORY: SCREENING Z12.31 TECHNIQUE: Mammograms were interpreted according to the usual protocol including computer analysis w [employer] CAD system, tomosynthesis and C-view imaging. COMPARISON: 2012 and 2013 FINDINGS: The breasts are composed of scattered fibroglandular densities, Breast Density category B. No suspicious masses or suspicious microcalcifications are seen. No skin thickening or abnormal axillary lymph nodes are seen. There has been no significant change from prior exams. IMPRESSION: BI-RADS Category 1, Negative mammogram Yearly screening mammography is recommended. Breast Density - Category B, scattered fibroglandular densities. A negative radiographic report should not delay biopsy if a dominant or clinically suspicious mass is present. Up to ten percent of cancers are not identified on mammography. A negative report may reinforce clinical impression. Adenosis and dense breasts may obscure an underlying neoplasm. False positive reports average 6 to 10%. Patient will receive a letter notifying them of these results.
== END 2021-05-07 03:04 ==
PROVIDERS: PCP Nurse Practitioner; Visit Provider Nurse Practitioner
DX: Z12.31 Encounter for screening mammogram for malignant neoplasm of breast (principal)
CPT/HCPCS: 77063; 77067

== ENCOUNTER 2021-05-11 17:03 | Outpatient (REF) | payer MEDICARE, OTHER, SELFPAY ==
[2021-05-11 17:56] LABS: Abs Immature Grans 0.07 10^3/uL (0.0-0.06); Absolute Basophil Count 0.06 10^3/uL (0.0-0.2); Absolute Eosinophil Count 0.04 10^3/uL (0.0-0.7); Absolute Lymphocyte Count 0.95 10^3/uL (1.2-3.4); Absolute Monocyte Count 0.39 10^3/uL (0.1-0.8); Anion Gap 5.4 mmol/L (3-11); BUN 27 mg/dL (7-18); Basophils % 0.5; C-Reactive Protein 0.66 mg/dL (0.0-0.3); CO2 30.6 mmol/L (21.0-32.0); CREATININE 1.1 mg/dL (0.55-1.02); Calcium 7.9 mg/dL (8.5-10.1); Chloride 106 mmol/L (98-107); Eosinophils % 0.4; Estimated GFR 50.01 (mL/min/1.73m2); Glucose 161 mg/dL (74-106); HCT 34.7 % (36.0-46.0); HGB 10.8 g/dL (11.2-15.7); Immature Grans % 0.6; Lymphocytes % 8.6; MCH 30.8 pg (27.0-33.0); MCHC 31.1 % (32.0-36.0); MCV 98.9 fL (80-95); MPV 10.5 fL (8.0-11.0); Monocytes % 3.5; Neutrophils % 86.4; Nucleated RBC 0 %; Platelet Count 320 10^3/uL (130-400); Potassium 4.5 mmol/L (3.5-5.1); RBC 3.51 10^6/uL (3.93-5.22); RDW 15.3 % (11.7-14.6); RDW-SD 54.4 fL; Sodium 142 mmol/L (136-145); WBC 11.06 10^3/uL (4.4-10.8)
[2021-05-11 17:59] LABS: Absolute Neutrophil Count 9.56 10^3/uL (1.2-6.7)
== END 2021-05-11 17:04 | disposition home or self-care (01) ==
LOC: LBN 17:03
PROVIDERS: PCP Nurse Practitioner; Visit Provider Nurse Practitioner
DX: A40.1 Sepsis due to streptococcus, group B (principal); L03.115 Cellulitis of right lower limb; Z79.2 Long term (current) use of antibiotics
CPT/HCPCS: 80048; 85025; 86140

== ENCOUNTER 2021-05-21 14:59 | Outpatient (REF) | payer MEDICARE, OTHER, SELFPAY ==
[2021-05-21 15:48] LABS: Abs Immature Grans 0.04 10^3/uL (0.0-0.06); Absolute Basophil Count 0.07 10^3/uL (0.0-0.2); Absolute Eosinophil Count 0.19 10^3/uL (0.0-0.7); Absolute Lymphocyte Count 1.76 10^3/uL (1.2-3.4); Absolute Monocyte Count 0.57 10^3/uL (0.1-0.8); Basophils % 0.8; Eosinophils % 2.3; HCT 38.9 % (36.0-46.0); HGB 12.1 g/dL (11.2-15.7); Immature Grans % 0.5; Lymphocytes % 21.1; MCH 30.3 pg (27.0-33.0); MCHC 31.1 % (32.0-36.0); MCV 97.3 fL (80-95); MPV 10.8 fL (8.0-11.0); Monocytes % 6.8; Neutrophils % 68.5; Nucleated RBC 0 %; Platelet Count 241 10^3/uL (130-400); RDW-SD 53.9 fL; WBC 8.33 10^3/uL (4.4-10.8)
[2021-05-21 15:51] LABS: ESR 19 mm/hr (0-30)
[2021-05-21 16:52] LABS: ALT 67 U/L (14-59); AST 32 U/L (15-37); Albumin 3.3 g/dL (3.4-5.0); Alkaline Phosphatase 119 U/L (46-116); Anion Gap 7.5 mmol/L (3-11); BUN 15 mg/dL (7-18); Bilirubin, Total 0.5 mg/dL (0.2-1.0); CO2 28.5 mmol/L (21.0-32.0); CREATININE 0.9 mg/dL (0.55-1.02); Calcium 8.6 mg/dL (8.5-10.1); Chloride 104 mmol/L (98-107); Glucose 306 mg/dL (74-106); Potassium 4.5 mmol/L (3.5-5.1); Sodium 140 mmol/L (136-145); Total Protein 6.3 g/dL (6.4-8.2)
== END 2021-05-21 15:00 | disposition home or self-care (01) ==
LOC: LBN 14:59
PROVIDERS: PCP Nurse Practitioner; Visit Provider Nurse Practitioner
DX: A40.1 Sepsis due to streptococcus, group B (principal); Z79.2 Long term (current) use of antibiotics; L03.115 Cellulitis of right lower limb
CPT/HCPCS: 80053; 85652; 85025; 86140

== ENCOUNTER 2021-05-26 14:34 | Emergency (ER) | payer MEDICARE, OTHER, SELFPAY ==
[2021-05-26] VITALS (18 sets, daily range): BP systolic 156–170; BP diastolic 69–74; PULSE 76–124; RESP 7–18; TEMP 36.7; O2SAT 90–98
--- NOTE | 2021-05-26 14:45 | DI.RAD_ITS ---
Exam(s) XR CHEST 2V PA LATERAL EXAM: XR CHEST 2V PA LATERAL CLINICAL HISTORY: SOB, R/O CHF TECHNIQUE: 2D digital imaging was performed of the chest. Two images were obtained. PA and lateral views were obtained. COMPARISON: CR XR CHEST 2V PA LATERAL from 01/31/2021 FINDINGS: MEDIASTINUM: Normal. HEART: Normal. PULMONARY VASCULATURE: Normal. LUNGS: Clear. PLEURAL SPACE: No pleural effusion or pneumothorax. BONE:Within normal limits for the patient's age. OTHER FINDINGS:Normal. IMPRESSION: No acute pulmonary findings. DATA REPOSITORY: RADIATION DOSE DELIVERED:
--- NOTE | 2021-05-26 14:45 | RT.EKG_ITS ---
APPROVED REPORT Exam: Resting ECG Reason for Exam: Swelling, SOB Patient Location: E HR:96 bpm ECG Measurements Heart Rate 96 AXIS AR 142 P 38 QRSd 117 QRS -50 QT 378 T 79 QTc 479 Conclusion Sinus rhythm...normal P axis, V-rate 60- 99 Incomplete RBBB and LAFB...axis(240,-40), S>R II III aVF Nonspecific T abnormalities, lateral leads...T <-0.10mV, I aVL V5 V6
--- NOTE | 2021-05-26 15:01 | ED.GENADUL_ITS ---
Discharge Plan Disposition Patient Disposition: HOME Condition: Stable Discharge Details Clinical Impression: Edema, peripheral, Elevated blood pressure reading Primary Care Provider: Chito Brunner ED Provider: Matilda Thornton Home Meds and New Rx's Prescriptions: New magnesium oxide 500 mg capsule 500 mg PO DAILY Qty: 10 RF: 0 Continued furosemide 40 MG tablet 40 mg PO DAILY PRNRF: 0 potassium chloride 10 MEQ capsule, extended release 10 meq PO DAILY PRNRF: 0 Lantus U-100 Insulin 100 UNIT/ML solution 40 units Sub-Q DIRECTED RF: 0 albuterol sulfate 3 ML solution for nebulization 1 unit Inhalation QID PRNRF: 0 atorvastatin [Lipitor] 10 MG tablet 10 mg PO DAILY RF: 0 fluconazole 150 MG tablet 150 mg PO .X1 PRNRF: 0 methylprednisolone 4 MG tablet 4 mg PO DAILY RF: 0 amlodipine 5 MG tablet 10 mg PO BID RF: 0 leflunomide [Arava] 20 MG tablet 20 mg PO DAILY RF: 0 esomeprazole magnesium [Nexium] 40 MG capsule,delayed release(DR/EC) 40 mg PO DAILY RF: 0 betamethasone, augmented [Diprolene (augmented)] 50 GM ointment 1 applic Topical DAILY PRNRF: 0 folic acid 1 MG tablet 1 mg PO DAILY RF: 0 montelukast 10 MG tablet 10 mg PO DAILY RF: 0 zolpidem 10 MG tablet 10 mg PO HS RF: 0 calcium carbonate-vitamin D3 [Calcium 600 + D(3)] 1 EACH tablet 1 tab PO BID RF: 0 amitriptyline 25 mg Tablet 25 mg PO DAILY RF: 0 prednisone 20 mg tablet 5 mg PO DAILY RF: 0 morphine 60 mg tablet extended release 60 mg PO .Q12 HRS RF: 0 metoprolol succinate 50 mg Tablet Extended Release 24 Hr 50 mg PO DAILY RF: 0 aspirin 81 mg Tablet,Chewable 81 mg PO DAILY RF: 0 hydrochlorothiazide 25 mg Tablet 25 mg PO DIRECTED RF: 0 Januvia 50 mg Tablet 50 mg PO DAILY RF: 0 Multi Vitamin 9 mg iron/15 mL Liquid 1 mg PO DAILY RF: 0 hydromorphone 8 mg Tablet 8 mg PO Q6H PRN PRNRF: 0 tizanidine 2 mg Tablet 2 mg PO Q8H PRN PRNRF: 0 lisinopril 10 mg Tablet 10 mg PO DAILY RF: 0 insulin lispro [Humalog KwikPen Insulin] 100 unit/mL Insulin Pen 10 unit SUBCUT 1200 RF: 0 Breo Ellipta 200-25 mcg/dose Blister With Device 2 ea INHALATION QHS RF: 0 Humira 10 mg/0.2 mL Syringe Kit 10 mg SUBCUT RF: 0 albuterol sulfate 0.63 mg/3 mL Solution For Nebulization 2 mg inhalation PRN PRNRF: 0 diazepam [Valium] 2 mg tablet 2 mg PO BID PRN (Reason: back pain) Qty: 20 RF: 0 Narcan 4 mg/actuation spray,non-aerosol 1 spray RICCI ONCE PRN (Reason: opioid overdose) Qty: 2 RF: 0 Discharge Instructions Additional Instructions: Care management will follow up with you for PCP Take your Lasix for the next 2 days Take magnesium on your Lasix Recheck with your primary care physician on Friday or Friday of next week Follow-up with your toddler nanny Please return immediately should you have new or worsening complaints Check your weight daily Please return should you have worsening shortness of breath, fever, chills, or should you have new or worsening complaints Discharge Data Discharge Date/Time-TO BE ENTERED AT DEPARTURE: 05/26/21 19:25 Medical Decision Making <Beatriz Schwarz - Last Filed: 05/28/21 17:05> 55-year-old female presents to the ER with chief complaint of increased swelling noted to hands and face and legs over the last 5 to 7 days, decreased urine output, increase shortness of breath and fatigue with exertion over the last 5 to 7 days as well. Patient was admitted within the last month and discharge and has been receiving antibiotics through PICC line to her left upper extremity at the infusion center. Last infusion was Friday. She does have home health that comes in to check on her. They sent her to the ER today due to concern for increased heart rate and blood pressure and worsening symptoms. Patient has multiple medications. She reports that she is supposed to be taking hydrochlorothiazide 25 mg and furosemide 40 mg daily as needed. She states that she has not taken any of those medications in the last 5 to 7 days because they do not work and my lab work showed I was dehydrated. She has a past medical history of insulin-dependent diabetes, osteoarthritis rheumatoid arthritis, status post total left knee replacement, sepsis, right lower extremity osteomyelitis. At this time work-up ordered including CBC, CMP, BC x2, serial troponins, EKG, BNP, urinalysis, chest x-ray. EKG was reviewed by Dr. Jayy Starr ER attending, right bundle branch block old EKG available for review no significant change noted. At this time work-up is pending. Care is to be handed off to oncoming provider KATHI Sanchez. <KATHI Sanchez - Last Filed: 05/26/21 20:19> Patient was signed out to me at 1600 from Nasra Sim nurse practitioner pending BNP, x-ray, and reassessment Patient is alert, oriented, of decisional capacity, she is quite pleasant in demeanor It sounds like she has been on prednisone for the past 4 months and discontinued discontinued the fever She actually showed me pictures from the past 2 weeks and her peripheral edema does not like significantly changed, patient has an ejection fraction of 50 to 55% with a ultrasound performed. Prior to arrival today Her BNP is within normal limits that her chest x-ray is not concerning for CHF She has not been taking her Lasix She is no longer having exertional dyspnea, her D-dimer using age-adjusted is negative and her troponins are negative x2, her EKG is unchanged from prior Discussed admission for telemetry observation and repeat troponin labs, however patient prefers to follow-up with primary care physician and cardiology in the outpatient setting She will take 3 doses of Lasix starting tomorrow morning and see if this helps with any of her symptoms She is also discontinued her prednisone at this time I did discuss specifically whether or not the patient's symptoms and findings could be related to Humboldt's disease and she will follow up with At this time she stable for discharge home She was offered admission and declined, she is not leaving AGAINST MEDICAL ADVIC E and she is aware that we cannot completely exclude cardiac reason for the dyspnea she had earlier other her exam is reassuring despite her significant comorbidities and recent admission However blood cell count is within normal limits, she is not tachycardiac, tachypneic, or having unstable blood pressure physician, I do not see any reason for acute work-up She also prefers to have a general practitioner closer to where she resides, 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 Lab Data Lab results reviewed: Yes I reviewed the patient's lab results. HPI <Beatriz Schwarz - Last Filed: 05/28/21 17:05> General Mode of arrival: wheelchair . Date/Time Provider Initiated Documentation: 05/26/21 14:44 . Limitations to Documentation: no limitations . Information obtained by: patient, RN notes reviewed and old records reviewed . HPI Narrative: 55-year-old female presents to the ER with chief complaint of increased swelling noted to hands and face and legs over the last 5 to 7 days, decreased urine output, increase shortness of breath and fatigue with exertion over the last 5 to 7 days as well. Patient was admitted within the last month and discharge and has been receiving antibiotics through PICC line to her left upper extremity at the infusion center. Last infusion was Friday. She does have home health that comes in to check on her. They sent her to the ER today due to concern for increased heart rate and blood pressure and worsening symptoms. Patient has multiple medication. She reports that she is supposed to be taking hydrochlorothiazide 25 mg and furosemide 40 mg daily as needed. She states that she has not taken any of those medications in the last 5 to 7 days because they do not work and my lab work showed I was dehydrated. She has a past medical history of insulin-dependent diabetes, osteoarthritis rheumatoid arthritis, status post total left knee replacement, sepsis, right lower extremity osteomyelitis Related Data Home Medications Medication Instructions Recorded Confirmed Lantus U-100 Insulin 40 units SUB-Q DIRECTED 01/11/14 05/26/21 albuterol sulfate 1 unit INHALATION QID PRN 01/11/14 05/26/21 amlodipine 10 mg PO BID 01/11/14 05/26/21 atorvastatin [Lipitor] 10 mg PO DAILY 01/11/14 05/26/21 betamethasone, augmented 1 applic TOPICAL DAILY PRN 01/11/14 05/26/21 [Diprolene (augmented)] calcium carbonate-vitamin D3 1 tab PO BID 01/11/14 05/26/21 [Calcium 600 + D(3)] esomeprazole magnesium [Nexium] 40 mg PO DAILY 01/11/14 04/29/21 fluconazole 150 mg PO .X1 PRN 01/11/14 05/26/21 folic acid 1 mg PO DAILY 01/11/14 05/26/21 furosemide 40 mg PO DAILY PRN 01/11/14 05/26/21 leflunomide [Arava] 20 mg PO DAILY 01/11/14 05/26/21 methylprednisolone 4 mg PO DAILY 01/11/14 05/26/21 montelukast 10 mg PO DAILY 01/11/14 05/26/21 potassium chloride 10 meq PO DAILY PRN 01/11/14 05/26/21 zolpidem 10 mg PO HS 01/11/14 05/26/21 Breo Ellipta 2 ea INHALATION QHS 04/09/19 05/26/21 Humira 10 mg SUBCUT 04/09/19 Januvia 50 mg PO DAILY 04/09/19 05/26/21 Multi Vitamin 1 mg PO DAILY 04/09/19 05/26/21 albuterol sulfate 2 mg INHALATION PRN PRN 04/09/19 05/26/21 aspirin 81 mg PO DAILY 04/09/19 05/26/21 hydrochlorothiazide 25 mg PO DIRECTED 04/09/19 05/26/21 hydromorphone 8 mg PO Q6H PRN PRN 04/09/19 05/26/21 insulin lispro [Humalog KwikPen 10 unit SUBCUT 1200 04/09/19 05/26/21 Insulin] lisinopril 10 mg PO DAILY 04/09/19 05/26/21 metoprolol succinate 50 mg PO DAILY 04/09/19 05/26/21 tizanidine 2 mg PO Q8H PRN PRN 04/09/19 05/26/21 Narcan 1 spray RICCI ONCE PRN #2 each 04/11/19 05/26/21 diazepam [Valium] 2 mg PO BID PRN #20 tab 04/11/19 05/26/21 amitriptyline 25 mg PO DAILY 03/26/21 05/26/21 prednisone 5 mg PO DAILY 03/26/21 05/26/21 magnesium oxide 500 mg PO DAILY #10 cap 05/26/21 morphine 60 mg PO .Q12 HRS 05/26/21 05/26/21 Previous Rx's Medication Instructions Recorded Narcan 1 spray RICCI ONCE PRN #2 each 04/11/19 diazepam [Valium] 2 mg PO BID PRN #20 tab 04/11/19 magnesium oxide 500 mg PO DAILY #10 cap 05/26/21 Allergies Allergy/AdvReac Type Severity Reaction Status Date / Time clarithromycin [From Biaxin] Allergy Intermediate Skin Rash Unverified 05/26/21 14:53 Penicillins Allergy Intermediate Skin Rash Unverified 05/26/21 14:53 Sulfa (Sulfonamide Allergy Intermediate Skin Rash Unverified 05/26/21 14:53 Antibiotics) capsaicin Allergy Anaphylaxsi Unverified 05/26/21 14:53 s nickel Allergy Unverified 05/26/21 14:53 General Stated Complaint: [facility] ARABELLA: 3 Review of Systems <Beatriz Schwarz - Last Filed: 05/28/21 17:05> All systems reviewed & are unremarkable except as noted in HPI and below Constitutional Constitutional: Reports as per HPI, Reports fatigue, Reports lethargy, Reports malaise and Reports night sweats ENT Ears, Nose, Mouth, and Throat: Denies dizziness Cardiovascular Cardiovascular: Denies chest pain, Reports pedal edema, Reports edema, Reports leg edema and Reports dyspnea Respiratory Respiratory: Denies cough and Reports dyspnea Gastrointestinal Gastrointestinal: Denies abdominal pain, Denies nausea and Denies vomiting Genitourinary Genitourinary: Reports difficulty voiding Musculoskeletal Musculoskeletal: Reports as per HPI (Is wearing a walking boot and eda hose on RLE upon arrival) Neurologic Neurologic: Denies confusion and Denies dizziness Psychiatric Psychiatric: Denies confusion Endocrine Endocrine: Reports fatigue [facility] <Beatriz Schwarz - Last Filed: 05/28/21 17:05> Medical History (Updated 05/26/21 @ 19:06 by KATHI Sanchez) Diabetes mellitus Pain Rheumatoid arthritis Surgical History Status post total left knee replacement Social History Smoking/Tobacco Use Status: Never Smoking risk assessment performed?: Yes Alcohol Intake: current Alcohol Intake frequency: holidays/special occasions only Drug use: Never Do you feel safe at home: Yes Do you feel safe in your relationship?: Yes Exam <Beatriz Schwarz - Last Filed: 05/28/21 17:05> Narrative Exam Narrative: Constitutional: Alert and oriented x3. Appears stated age. Normal body habitus.Heart rate 94 regular upon arrival. Blood pressure 170/74. Patient is afebrile Head: Normocephalic, no trauma. Eyes: Pupils PERRLA, Red reflex noted, EOM's intact. Eyelids symmetrical without lesions, discharge, left periorbital swelling noted Chest: RRR, Normal S1, S2, distal pulses intact. Resp: Lungs clear to auscultation bilaterally, no wheezes, rales, or rhonchi. Abdomen: Soft, nondistended nontender to palpation all 4 quadrants Musculoskeletal: Swelling noted to right upper extremity and, left hand. PICC line noted to left upper extremity. Exam limited by patient wearing EDA hose and fully dressed at the time of my examination. Skin: Ecchymosis noted to right upper extremity forearm. capillary refill less than 2 sec. Neurologic: Cranial nerves II-XII intact. Alert and oriented x 3. Hematologic/Lymphatic: No ecchymosis, no lymphadenopathy. Course <Beatriz Schwarz - Last Filed: 05/28/21 17:05> Vital Signs Vital signs: Vital Signs Temperature 36.7 C 05/26/21 14:46 Pulse 94 H 05/26/21 14:46 Respiratory Rate 16 05/26/21 14:46 Blood Pressure 170/74 H 05/26/21 14:46 Pulse Oximetry 95 05/26/21 14:46 Temperature 36.7 C 05/26/21 14:46 Temperature Source Skin 05/26/21 14:46 Pulse 94 H 05/26/21 14:46 Respiratory Rate 16 05/26/21 14:46 Respiratory Effort Non-Labored 05/26/21 14:46 Blood Pressure 170/74 H 05/26/21 14:46 Blood Pressure Position Sitting 05/26/21 14:46 Pulse Oximetry 95 05/26/21 14:46 Oxygen Delivery Method Room Air 05/26/21 14:46 Oxygen Flow Rate 0 05/26/21 14:46 Pain Level 5 05/26/21 14:46 Sign Out <Beatriz Schwarz - Last Filed: 05/28/21 17:05> Sign Out Data: Sign Out Comment: Pending labs, CXR, Dispo, Possible admit. Last updated by Beatriz Schwarz at 05/26/21 16:15
[2021-05-26 15:39] LABS: Abs Immature Grans 0.02 10^3/uL (0.0-0.06); Absolute Basophil Count 0.05 10^3/uL (0.0-0.2); Absolute Lymphocyte Count 1.81 10^3/uL (1.2-3.4); Absolute Monocyte Count 0.49 10^3/uL (0.1-0.8); Absolute Neutrophil Count 4.24 10^3/uL (1.2-6.7); Basophils % 0.7; Eosinophils % 1.5; HGB 11.5 g/dL (11.2-15.7); Immature Grans % 0.3; MCH 30.1 pg (27.0-33.0); MCHC 31.1 % (32.0-36.0); MCV 96.9 fL (80-95); MPV 9.8 fL (8.0-11.0); Monocytes % 7.3; Neutrophils % 63.2; Nucleated RBC 0 %; Platelet Count 250 10^3/uL (130-400); RBC 3.82 10^6/uL (3.93-5.22); RDW 14.8 % (11.7-14.6); RDW-SD 52.3 fL; WBC 6.71 10^3/uL (4.4-10.8)
[2021-05-26 15:54] LABS: ALT 34 U/L (14-59); AST 20 U/L (15-37); Albumin 3.3 g/dL (3.4-5.0); Alkaline Phosphatase 98 U/L (46-116); Anion Gap 5.2 mmol/L (3-11); BUN 16 mg/dL (7-18); Bilirubin, Total 0.5 mg/dL (0.2-1.0); CO2 31.8 mmol/L (21.0-32.0); Calcium 8.9 mg/dL (8.5-10.1); Chloride 104 mmol/L (98-107); Estimated GFR 55.82 (mL/min/1.73m2); Glucose 234 mg/dL (74-106); Potassium 4.4 mmol/L (3.5-5.1); Sodium 141 mmol/L (136-145); Total Protein 6.6 g/dL (6.4-8.2); Troponin I < 0.05 ng/mL (<0.06)
[2021-05-26 16:25] LABS: Bilirubin Negative (Negative); Blood Negative (Negative); Clarity Clear (Clear); Glucose 100 mg/dL (Negative); Ketones Negative (Negative); Leukocyte Esterase Negative (Negative); Nitrite Negative (Negative); Urobilinogen 0.2 EU/dL (Up TO 0.2); pH 5.5 (5-8)
[2021-05-26 16:26] LABS: Magnesium 1.7 mg/dL (1.8-2.4); NT-proBNP 278 pg/mL (<300)
[2021-05-26 16:34] LABS: Bacteria Negative HPF (Negative); Crystals Negative HPF (Negative); Epithelial Cells Moderate HPF (Negative); Mucus Negative (Negative); RBC 0-2 HPF (0-2); WBC Negative HPF (0-5)
[2021-05-26 16:35] LABS: C & S Indicated? No
--- NOTE | 2021-05-26 17:08 | DI.VRAD_ITS ---
PROCEDURE INFORMATION: Exam: XR Chest Exam date and time: 05/26/2021 3:01 PM Age: 65 years old Clinical indication: Shortness of breath and other: SOB R/O chf TECHNIQUE: Imaging protocol: XR of the chest. Views: 2 views. COMPARISON: CR XR PORTABLE CHEST AP 04/28/2021 4:35 PM FINDINGS: Lungs: Unremarkable. No consolidation. Pleural spaces: Unremarkable. No pleural effusion. No pneumothorax. Heart/Mediastinum: Unremarkable. No cardiomegaly. Bones/joints: Unremarkable. IMPRESSION: No acute findings. Dictated and Authenticated by: Casey Mendez MD. Ordering:RACHEL Henderson MD
[2021-05-26 18:10] LABS: D-Dimer 537 ng/mlFEU (<500)
[2021-05-26 18:42] LABS: Troponin I < 0.05 ng/mL (<0.06)
--- NOTE | 2021-05-26 19:05 | NUR.NOTE ---
Nursing Note: [facility] 05/26/21
--- NOTE | 2021-05-27 09:57 | NUR.NOTE ---
Nursing Note: Prescription called in to [place] [facility], for magnesium oxide 50 mg PO daily #10 no refill. Changed preferred pharmacy to [facility] w/ Anabella Joshua RN. Shirley Mercer
== END 2021-05-26 19:25 | disposition home or self-care (01) ==
PROVIDERS: Registered Nurse Emergency; Emergency Provider Physician Assistant; PCP Nurse Practitioner
DX: R60.0 Localized edema (principal); R03.0 Elevated blood-pressure reading, without diagnosis of hypertension; R06.02 Shortness of breath; E83.42 Hypomagnesemia; R53.83 Other fatigue
CPT/HCPCS: 36415; 80053; 87040; 93005; 99285; 71046; 81003; 81015; 83735; 83880; 84484; 85025; 85379; 93010

== ENCOUNTER 2022-02-26 09:23 | Emergency (ER) | payer MEDICARE, OTHER, SELFPAY ==
[2022-02-26 10:18] VITALS: BP 160/56; PULSE 77; RESP 16; TEMP 36.9; O2SAT 97
--- NOTE | 2022-02-26 10:59 | ED.GENADUL_ITS ---
Discharge Plan Disposition Patient Disposition: HOME Condition: Stable Discharge Details Clinical Impression: Pain of left heel, Sprain of left foot Primary Care Provider: Chito Brunner ED Provider: Kianna Hooper Home Meds and New Rx's Prescriptions: Continued potassium chloride 10 MEQ capsule, extended release 10 meq PO DAILY PRN insulin glargine [Lantus U-100 Insulin] 100 UNIT/ML solution 40 units Sub-Q DIRECTED albuterol sulfate 3 ML solution for nebulization 1 unit Inhalation QID PRN Label Comments: 02/10/14- pt has not used for months, per pt atorvastatin [Lipitor] 10 MG tablet 10 mg PO DAILY fluconazole 150 MG tablet 150 mg PO .X1 PRN methylprednisolone 4 MG tablet 4 mg PO DAILY leflunomide [Arava] 20 MG tablet 20 mg PO DAILY esomeprazole magnesium [Nexium] 40 MG capsule,delayed release(DR/EC) 40 mg PO DAILY betamethasone, augmented [Diprolene (augmented)] 50 GM ointment 1 applic Topical DAILY PRN folic acid 1 MG tablet 1 mg PO DAILY zolpidem 10 MG tablet 10 mg PO HS calcium carbonate-vitamin D3 [Calcium 600 + D(3)] 1 EACH tablet 1 tab PO BID carvedilol 12.5 mg tablet PO BID Label Comments: Take 1 tablet by mouth 2 times daily with meals. aspirin 81 mg Tablet,Chewable 81 mg PO DAILY Multi Vitamin 9 mg iron/15 mL Liquid 1 mg PO DAILY insulin lispro [Humalog KwikPen Insulin] 100 unit/mL Insulin Pen 10 unit SUBCUT 1200 Humira 10 mg/0.2 mL Syringe Kit 10 mg SUBCUT albuterol sulfate 0.63 mg/3 mL Solution For Nebulization 2 mg inhalation PRN PRN Narcan 4 mg/actuation spray,non-aerosol 1 spray RICCI ONCE PRN (Reason: opioid overdose) Qty: 2 0RF Discharge Instructions Instructions: Foot Sprain (ED) Additional Instructions: Your x-ray today shows no evidence of acute findings within your heel. There is a questionable subtle fracture at the base of your left great toe but as you have no pain in this area this does not appear consistent with an acute fracture. Wear your orthopedic shoe and rest, ice and elevate your left foot as much as possible. Follow-up with your orthopedist for reevaluation as needed. Return immediately to the emergency department if you develop any worsening or new concerning symptoms. Discharge Data Discharge Physician: Kianna Hooper Medical Decision Making 56-year-old female with a history of obesity, diabetes, rheumatoid arthritis, peripheral edema, left knee replacement presents for left heel pain after her left foot twisted backwards while riding a scooter 3 days ago. She does have chronic appearing dependent pedal edema but no cellulitis, deformity or obvious evidence of trauma. She is neurovascularly intact. Patient referred for x-ray which was negative for acute fracture. There was a questionable subtle fracture at the base of the proximal phalanx of the great toe but patient has no pain in this location so not consistent with acute fracture. Her main location of pain is within her heel. As she had no report of significant pain prior to her injury, does not appear consistent with plantar fasciitis but advised to follow-up with her orthopedics for reevaluation of his do not improve or worsen. She has her orthopedic shoe in place which she states is comfortable. Usual and customary return precautions given prior to discharge. Medical Records Medical records reviewed: Yes I reviewed the patient's medical records. Imaging Data Radiologic Study: Radiologist's impression: XR FOOT LT COMPLETE CLINICAL HISTORY: ? jammed foot back on scooter, pain in heel, r/o fx. ? TECHNIQUE:? 2D digital imaging was performed. COMPARISON:? CR,XR XR FOOT LT LIMITED from 04/28/2021 FINDINGS: 3 views There is generalized osteopenia.? There is soft tissue swelling seen dorsally.? There is a healed fracture beyond the midshaft of the 5th metatarsal.? Hallux valgus noted.? No diastasis of the Lisfranc joint.? No acute metatarsal fractures. Deformity of the left 2nd toe noted without an obvious fracture at this level.? Subtle linear lucency is seen at the base of the proximal phalanx of the great toe.? This probably represents a fracture line given that it not evident on the prior study IMPRESSION: Possible subtle fracture of the base of proximal phalanx of the great toe..? Other findings as above HPI General Mode of arrival: ambulatory . Date/Time Provider Initiated Documentation: 02/26/22 10:27 . Limitations to Documentation: no limitations . Information obtained by: patient . HPI Narrative: Patient is a 66-year-old female with a history of rheumatoid arthritis who, diabetes, peripheral edema, left knee replacement, hypertension, hyperlipidemia, obesity who presents with left heel pain after she twisted her left foot backwards while riding a scooter 3 days ago. Patient states the pain is worse with weightbearing. She has oxycodone at home that she takes as needed for pain with her arthritis. She denies any other new Related Data Home Medications Medication Instructions Recorded Confirmed albuterol sulfate 2.5 mg/3 mL 1 unit inhalation QID PRN 01/11/14 05/26/21 (0.083 %) solution for nebulization atorvastatin 10 mg tablet (Lipitor) 10 mg PO DAILY 01/11/14 02/26/22 betamethasone, augmented 0.05 % 1 applic topical DAILY PRN 01/11/14 05/26/21 topical ointment (Diprolene (augmented)) calcium carbonate 600 mg-vitamin 1 tab PO BID 01/11/14 05/26/21 D3 10 mcg (400 unit) tablet (Calcium 600 + D(3)) esomeprazole magnesium 40 mg 40 mg PO DAILY 01/11/14 02/26/22 capsule,delayed release (Nexium) fluconazole 150 mg tablet 150 mg PO .X1 PRN 01/11/14 02/26/22 folic acid 1 mg tablet 1 mg PO DAILY 01/11/14 02/26/22 insulin glargine 100 unit/mL 40 units subcut DIRECTED 01/11/14 02/26/22 subcutaneous solution (Lantus U-100 Insulin) leflunomide 20 mg tablet (Arava) 20 mg PO DAILY 01/11/14 02/26/22 methylprednisolone 4 mg tablet 4 mg PO DAILY 01/11/14 02/26/22 potassium chloride 10 mEq 10 meq PO DAILY PRN 01/11/14 02/26/22 capsule,extended release zolpidem 10 mg tablet 10 mg PO HS 01/11/14 02/26/22 adalimumab 10 mg/0.2 mL 10 mg subcut 04/09/19 subcutaneous syringe kit (Humira) albuterol sulfate 0.63 mg/3 mL 2 mg inhalation PRN PRN 04/09/19 05/26/21 solution for nebulization aspirin 81 mg chewable tablet 81 mg PO DAILY 04/09/19 02/26/22 insulin lispro 100 unit/mL 10 unit subcut 1200 04/09/19 02/26/22 subcutaneous pen (Humalog KwikPen (U-100) Insulin) multivitamin with minerals-iron 1 mg PO DAILY 04/09/19 05/26/21 fumarate 9 mg iron/15 mL oral liquid (Multi Vitamin) naloxone 4 mg/actuation nasal 1 spray intranasal ONCE PRN opioid 04/11/19 05/26/21 spray (Narcan) overdose #2 ea carvedilol 12.5 mg tablet tab PO BID 02/26/22 Previous Rx's Medication Instructions Recorded naloxone 4 mg/actuation nasal 1 spray intranasal ONCE PRN opioid 04/11/19 spray (Narcan) overdose #2 ea Allergies Allergy/AdvReac Type Severity Reaction Status Date / Time clarithromycin [From Biaxin] Allergy Intermediate Skin Rash Unverified 02/26/22 10:24 Penicillins Allergy Intermediate Skin Rash Unverified 02/26/22 10:24 Sulfa (Sulfonamide Allergy Intermediate Skin Rash Unverified 02/26/22 10:24 Antibiotics) capsaicin Allergy Anaphylaxsi Unverified 02/26/22 10:24 s nickel Allergy Unverified 02/26/22 10:24 General Stated Complaint: Orthopedic ARABELLA: 4 Review of Systems All systems reviewed & are unremarkable except as noted in HPI and below Constitutional Constitutional: Reports as per HPI, Denies chills and Denies fever(s) Eyes Eyes: Denies blurry vision ENT Ears, Nose, Mouth, and Throat: Denies dizziness, Denies sore throat and Denies throat swelling Cardiovascular Cardiovascular: Denies chest pain and Denies dyspnea Respiratory Respiratory: Denies cough and Denies dyspnea Gastrointestinal Gastrointestinal: Denies abdominal pain, Denies diarrhea and Denies vomiting Genitourinary Genitourinary: Denies hematuria and Denies dysuria Musculoskeletal Musculoskeletal: Denies back pain and Denies numbness Integumentary/Breasts Skin/Breast: Denies lesions and Denies rash Neurologic Neurologic: Denies dizziness, Denies localized weakness and Denies numbness Allergic/Immunologic Allergic/Immunologic: Denies throat swelling PFSH All Active Problems (Updated 02/26/22 @ 11:57 by Kianna Hooper DO) Pain of left heel (Acute) Sprain of left foot (Acute) Elevated blood pressure reading (Acute) Pain of left calf (Acute) Cellulitis and abscess of foot (Acute) Contusion of right foot (Acute) Sepsis (Acute) Bone infection of left foot (Acute) Status post total left knee replacement (Acute) Pain (Acute) Lower extremity pain (Acute) Medical History (Updated 02/26/22 @ 11:57 by Kianna Hooper DO) Bacteremia due to group B Streptococcus Diabetes mellitus Edema, peripheral Rheumatoid arthritis Surgical History (Updated 02/26/22 @ 11:08 by Kianna Hooper DO) History of left knee replacement Social History Smoking/Tobacco Use Status: Never Smoking risk assessment performed?: Yes Alcohol Intake: current Alcohol Intake frequency: holidays/special occasions only Drug use: Never Do you feel safe at home: Yes Do you feel safe in your relationship?: Yes Exam Const General: cooperative and no acute distress Orientation: alert, awake and oriented x3 HENMT Head: normal to inspection Eyes General: appearance normal, both eyes and all related structures Neck Neck: normal visual inspection Resp Effort & Inspection: normal respiratory effort and able to speak in complete sentences Cardio Rate: regular rate Skin General skin exam: no rashes or lesions noted Neuro General: patient alert, patient awake and patient oriented x3 Motor: muscle tone normal throughout Extrem Ankle/foot/toe images: 1. Location of pain. No significant tenderness to palpation. There is no erythema, edema, ecchymosis, crepitus, rash or lesions. Other: No tenderness to palpation to left medial lateral malleolus, left fifth metatars al or toes. Left DP/PT pulses intact. There is chronic appearing nonpitting pedal edema. Left Achilles tendon appears taut and nontender to palpation. Psych Appearance: grossly normal Affect: normal affect Course Vital Signs Vital signs: Vital Signs Temperature 98.4 F 02/26/22 10:18 Pulse 77 02/26/22 10:18 Respiratory Rate 16 02/26/22 10:18 Blood Pressure 160/56 H 02/26/22 10:18 Pulse Oximetry 97 02/26/22 10:18 Temperature 98.4 F 02/26/22 10:18 Pulse 77 02/26/22 10:18 Respiratory Rate 16 02/26/22 10:18 Blood Pressure 160/56 H 02/26/22 10:18 Blood Pressure Position Sitting 02/26/22 10:18 Pulse Oximetry 97 02/26/22 10:18 Oxygen Delivery Method Room Air 02/26/22 10:18 Oxygen Flow Rate 0 02/26/22 10:18 Pain Level 2 02/26/22 10:18 Comment 02/26/22 10:18
--- NOTE | 2022-02-26 11:32 | DI.RAD_ITS ---
Exam(s) XR FOOT LT COMPLETE EXAM: XR FOOT LT COMPLETE CLINICAL HISTORY: jammed foot back on scooter, pain in heel, r/o fx. TECHNIQUE: 2D digital imaging was performed. COMPARISON: CR,XR XR FOOT LT LIMITED from 04/28/2021 FINDINGS: 3 views There is generalized osteopenia. There is soft tissue swelling seen dorsally. There is a healed fra cture beyond the midshaft of the 5th metatarsal. Hallux valgus noted. No diastasis of the Lisfranc joint. No acute metatarsal fractures. Deformity of the left 2nd toe noted without an obvious fracture at this level. Subtle linear lucency is seen at the base of the proximal phalanx of the great toe. This probably represents a fracture l ine given that it not evident on the prior study IMPRESSION: Possible subtle fracture of the base of proximal phalanx of the great toe.. Other findings as above DATA REPOSITORY: RADIATION DOSE DELIVERED:
[2022-02-26 12:07] VITALS: BP 142/69; PULSE 77; RESP 18; TEMP 36.7; O2SAT 95
== END 2022-02-26 12:12 | disposition home or self-care (01) ==
PROVIDERS: Emergency Provider Physician Assistant; PCP Nurse Practitioner
DX: S93.602A Unspecified sprain of left foot, initial encounter (principal); E11.9 Type 2 diabetes mellitus without complications; I10 Essential (primary) hypertension; Z79.4 Long term (current) use of insulin; X50.1XXA Overexertion from prolonged static or awkward postures, initial encounter; Y93.I9 Activity, other involving external motion
CPT/HCPCS: 99283; 73630; 99282

== ENCOUNTER 2022-05-06 00:27 | Emergency (ER) | payer MEDICARE, OTHER, SELFPAY ==
[2022-05-06 00:29] VITALS: BP 159/136; PULSE 113; RESP 15; TEMP 39.3; O2SAT 97
--- NOTE | 2022-05-06 00:46 | ED.GENADUL_ITS ---
Discharge Plan Disposition Patient Disposition: HOME Discharge Details Clinical Impression: Fever, COVID, Hypomagnesemia, Nausea & vomiting Primary Care Provider: Chito Brunner ED Provider: Williams Starr Home Meds and New Rx's Prescriptions: Continued potassium chloride 10 MEQ capsule, extended release 10 meq PO DAILY PRN insulin glargine [Lantus U-100 Insulin] 100 UNIT/ML solution 40 units Sub-Q DIRECTED albuterol sulfate 3 ML solution for nebulization 1 unit Inhalation QID PRN Label Comments: 02/10/14- pt has not used for months, per pt atorvastatin [Lipitor] 10 MG tablet 10 mg PO DAILY fluconazole 150 MG tablet 150 mg PO .X1 PRN methylprednisolone 4 MG tablet 4 mg PO DAILY leflunomide [Arava] 20 MG tablet 20 mg PO DAILY esomeprazole magnesium [Nexium] 40 MG capsule,delayed release(DR/EC) 40 mg PO DAILY betamethasone, augmented [Diprolene (augmented)] 50 GM ointment 1 applic Topical DAILY PRN folic acid 1 MG tablet 1 mg PO DAILY zolpidem 10 MG tablet 10 mg PO HS calcium carbonate-vitamin D3 [Calcium 600 + D(3)] 1 EACH tablet 1 tab PO BID carvedilol 12.5 mg tablet PO BID Label Comments: Take 1 tablet by mouth 2 times daily with meals. aspirin 81 mg Tablet,Chewable 81 mg PO DAILY Multi Vitamin 9 mg iron/15 mL Liquid 1 mg PO DAILY insulin lispro [Humalog KwikPen Insulin] 100 unit/mL Insulin Pen 10 unit SUBCUT 1200 Humira 10 mg/0.2 mL Syringe Kit 10 mg SUBCUT albuterol sulfate 0.63 mg/3 mL Solution For Nebulization 2 mg inhalation PRN PRN Narcan 4 mg/actuation spray,non-aerosol 1 spray RICCI ONCE PRN (Reason: opioid overdose) Qty: 2 0RF Discharge Instructions Instructions: COVID-19 (Coronavirus Disease 2019) (ED) Additional Instructions: follow up with your primary care provider as needed if you feel more ill, have worsening trouble breathing or persistent vomiting despite your home kait return to the emergency department Medical Decision Making 66 yr old female w/ IDDM, OA, RA who is on immunosuppressive mediations including arava comes in with ems with sudden onset fevers, chills similar to when she has had sepsis in the past. She states she woke up feeling okay then the fevers and rigors started this afternoon. She has noted a cough and general weakness. Denies abdominal pain, headache, neck stiffness, chest pain. She denies pain in her extremities. She has no rashes of her lower extremity, apparently has had wound infections of her legs in the past. She is noted to by mildly hypoxic with oxygen saturations in the low 90's. She has diminished breath sounds at the bases, soft nontender abdomen, no meningismus. Suspect sepsis and could be due to respiratory source, will obtain cbc, cmp,lactate, blood cultures, fluvid swab and cxr.? pt's blood work reassuring, no leukocytosis, normal lactate and procalcitonin. She did have some vomiting and during this did decrease to 86% but improved quickly and is now 98% on room air. She is covid positive, she states she is vaccinated and boostered and had covid last fall. Will obtain cta given her brief episode of hypoxia to evaluate for pe associated with covid ct negative for pe, does have small pericarial and pleural effusions otherwise unremarkable. She is stable, hr now 90 and stable bp and 98% on room air. Discussed with pt and she feels well enough to go home, is not requiring oxygen so do not feel she needs hospitalization. Offered to give MAB infusion and she declines after hearing risks and benefits and has decision making capacity. Advised to f/u with pcp and return precautions given Differential Diagnosis Differential Diagnosis: sepsis, pneumonia, covid, uti Medical Records Medical records reviewed: Yes I reviewed the patient's medical records. Imaging Data Radiologic Study: Attestation: I personally reviewed and interpreted this imaging study as follows: Imaging: CT Scan Radiologist's impression: IMPRESSION: 1. Small left pleural effusion. 2. Cardiomegaly. 3. Small pericardial effusion. 4. Pulmonary vascular congestion. 5. No evidence of pulmonary embolism or aortic dissection. 6. Degenerative changes. Lab Data Lab results reviewed: Yes I reviewed the patient's lab results. HPI General Mode of arrival: ambulatory . Date/Time Provider Initiated Documentation: 05/06/22 00:42 . Limitations to Documentation: no limitations . Information obtained by: patient . History of Present Illness 66 year old F presents to the emergency department with the chief complaint of fever, described as moderate, and it has been constant. No relieving factors improve symptom(s), No exacerbating factors reported . Patient notes cough and fever/chills. Patient did receive the following treatments prior to arrival, none Related Data Home Medications Medication Instructions Recorded Confirmed albuterol sulfate 2.5 mg/3 mL 1 unit inhalation QID PRN 01/11/14 05/26/21 (0.083 %) solution for nebulization atorvastatin 10 mg tablet (Lipitor) 10 mg PO DAILY 01/11/14 02/26/22 betamethasone, augmented 0.05 % 1 applic topical DAILY PRN 01/11/14 05/26/21 topical ointment (Diprolene (augmented)) calcium carbonate 600 mg-vitamin 1 tab PO BID 01/11/14 05/26/21 D3 10 mcg (400 unit) tablet (Calcium 600 + D(3)) esomeprazole magnesium 40 mg 40 mg PO DAILY 01/11/14 02/26/22 capsule,delayed release (Nexium) fluconazole 150 mg tablet 150 mg PO .X1 PRN 01/11/14 02/26/22 folic acid 1 mg tablet 1 mg PO DAILY 01/11/14 02/26/22 insulin glargine 100 unit/mL 40 units subcut DIRECTED 01/11/14 02/26/22 subcutaneous solution (Lantus U-100 Insulin) leflunomide 20 mg tablet (Arava) 20 mg PO DAILY 01/11/14 02/26/22 methylprednisolone 4 mg tablet 4 mg PO DAILY 01/11/14 02/26/22 potassium chloride 10 mEq 10 meq PO DAILY PRN 01/11/14 02/26/22 capsule,extended release zolpidem 10 mg tablet 10 mg PO HS 01/11/14 02/26/22 adalimumab 10 mg/0.2 mL 10 mg subcut 04/09/19 subcutaneous syringe kit (Humira) albuterol sulfate 0.63 mg/3 mL 2 mg inhalation PRN PRN 04/09/19 05/26/21 solution for nebulization aspirin 81 mg chewable tablet 81 mg PO DAILY 04/09/19 02/26/22 insulin lispro 100 unit/mL 10 unit subcut 1200 04/09/19 02/26/22 subcutaneous pen (Humalog KwikPen (U-100) Insulin) multivitamin with minerals-iron 1 mg PO DAILY 04/09/19 05/26/21 fumarate 9 mg iron/15 mL oral liquid (Multi Vitamin) naloxone 4 mg/actuation nasal 1 spray intranasal ONCE PRN opioid 04/11/19 05/26/21 spray (Narcan) overdose #2 ea carvedilol 12.5 mg tablet tab PO BID 02/26/22 Previous Rx's Medication Instructions Recorded naloxone 4 mg/actuation nasal 1 spray intranasal ONCE PRN opioid 04/11/19 spray (Narcan) overdose #2 ea Allergies Allergy/AdvReac Type Severity Reaction Status Date / Time clarithromycin [From Biaxin] Allergy Intermediate Skin Rash Unverified 05/06/22 01:09 Penicillins Allergy Intermediate Skin Rash Unverified 05/06/22 01:09 Sulfa (Sulfonamide Allergy Intermediate Skin Rash Unverified 05/06/22 01:09 Antibiotics) capsaicin Allergy Anaphylaxsi Unverified 05/06/22 01:09 s nickel Allergy Unverified 05/06/22 01:09 General Stated Complaint: Fever ARABELLA: 2 Review of Systems All systems reviewed & are unremarkable except as noted in HPI and below Constitutional Constitutional: Denies chills and Denies fever(s) Cardiovascular Cardiovascular: Denies chest pain and Denies dyspnea Respiratory Respiratory: Denies dyspnea Gastrointestinal Gastrointestinal: Denies abdominal pain, Denies nausea and Denies vomiting PFSH All Active Problems (Updated 05/06/22 @ 03:26 by Williams Starr MD) Fever (Acute) COVID (Acute) Hypomagnesemia (Acute) Nausea & vomiting (Acute) Elevated blood pressure reading (Acute) Pain of left calf (Acute) Cellulitis and abscess of foot (Acute) Contusion of right foot (Acute) Sepsis (Acute) Bone infection of left foot (Acute) Status post total left knee replacement (Acute) Pain (Acute) Lower extremity pain (Acute) Medical History (Updated 05/06/22 @ 03:26 by Williams Starr MD) Bacteremia due to group B Streptococcus Diabetes mellitus Edema, peripheral Rheumatoid arthritis Surgical History (Updated 02/26/22 @ 11:08 by Kianna Hooper DO) History of left knee replacement Social History Smoking/Tobacco Use Status: Never Smoking risk assessment performed?: Yes Alcohol Intake: current Alcohol Intake frequency: holidays/special occasions only Drug use: Never Do you feel safe at home: Yes Do you feel safe in your relationship?: Yes Exam Const General: no acute distress Orientation: alert HENMT Head: normal to inspection Ears: external ears normal General nose exam: external nose normal Mouth: moist mucous membranes Eyes General: appearance normal, both eyes and all related structures Neck Neck: normal visual inspection Resp Effort & Inspection: normal respiratory effort and able to speak in complete sentences Cardio Rate: regular rate Skin General skin exam: no rashes or lesions noted Neuro General: patient alert and patient oriented x3 Extrem General: normal to inspection Psych Mental Status: mental status grossly normal Course Vital Signs Vital signs: Vital Signs Temperature 39.3 C H 05/06/22 00:29 Pulse 113 H 05/06/22 00:29 Respiratory Rate 15 05/06/22 00:29 Blood Pressure 159/136 H 05/06/22 00:29 Pulse Oximetry 97 05/06/22 00:29 Temperature 39.3 C H 05/06/22 00:29 Temperature Source Oral 05/06/22 00:29 Pulse 113 H 05/06/22 00:29 Respiratory Rate 15 05/06/22 00:29 Blood Pressure 159/136 H 05/06/22 00:29 Blood Pressure Position Supine 05/06/22 00:29 Pulse Oximetry 97 05/06/22 00:29 Oxygen Delivery Method Room Air 05/06/22 00:29 Oxygen Flow Rate 0 05/06/22 00:29 Pain Level 4 05/06/22 00:29 Comment 05/06/22 00:29 Lab/Test Results Lab/Test Results: 05/06/22 00:25 Blood Blood Culture - Pending 05/06/22 00:25 Blood Blood Culture - Pending
[2022-05-06 00:49] LABS: BE (Venous) 3 mmol/L (-2-3); HCO3 (Venous) 28 mmol/L (23-28); O2 Sat (Venous) 85 %; TCO2 (Venous) 26 mmol/L (24-29); pCO2 (Venous) 45 mmHg (41-51); pO2 (Venous) 52 mmHg
[2022-05-06 00:51] LABS: Lactate 1.2 mmol/L (0.6-1.4)
[2022-05-06 00:52] LABS: Abs Immature Grans 0.02 10^3/uL (0.0-0.06); Absolute Eosinophil Count 0.49 10^3/uL (0.0-0.7); Absolute Lymphocyte Count 1.94 10^3/uL (1.2-3.4); Absolute Monocyte Count 1.05 10^3/uL (0.1-0.8); Basophils % 1.3; Eosinophils % 6.4; HCT 31.9 % (36.0-46.0); HGB 9.7 g/dL (11.2-15.7); Immature Grans % 0.3; Lymphocytes % 25.2; MCH 27.2 pg (27.0-33.0); MCHC 30.4 % (32.0-36.0); MCV 89 fL (80-95); MPV 10.4 fL (8.0-11.0); Monocytes % 13.6; Neutrophils % 53.2; Platelet Count 277 10^3/uL (130-400); RBC 3.57 10^6/uL (3.93-5.22); RDW 15.2 % (11.7-14.6); RDW-SD 49.5 fL
[2022-05-06 01:06] LABS: ALT 19 U/L (14-59); AST 31 U/L (15-37); Albumin 3.2 g/dL (3.4-5.0); Alkaline Phosphatase 143 U/L (46-116); Anion Gap 8.9 mmol/L (3-11); BUN 13 mg/dL (7-18); Bilirubin, Total 0.8 mg/dL (0.2-1.0); CO2 28.1 mmol/L (21.0-32.0); CREATININE 1.1 mg/dL (0.55-1.02); Calcium 8.3 mg/dL (8.5-10.1); Chloride 100 mmol/L (98-107); Estimated GFR 55.76 (mL/min/1.73m2); Glucose 121 mg/dL (74-106); Magnesium 1.4 mg/dL (1.8-2.4); Potassium 3.8 mmol/L (3.5-5.1); Sodium 137 mmol/L (136-145); Total Protein 6.6 g/dL (6.4-8.2)
[2022-05-06] MEDS: Normal Saline 1,000 ML 1000 ML IV (01:10)
[2022-05-06] MEDS: Ondansetron 4 MG/2 ML VIAL (01:11)
[2022-05-06] MEDS: MAGNESIUM SULFATE 2 GM/50 ML BAG IVPB (01:15)
--- NOTE | 2022-05-06 01:15 | DI.CT_ITS ---
Exam(s) CT CHEST PE CTA EXAM: CT CHEST PE CTA CLINICAL HISTORY: tachycardia, covid positive, ?pe. TECHNIQUE: Imaging Protocol: CT angiography of the chest was performed using pulmonary embolus anant col. Multi planar reconstructions were performed. CONTRAST MATERIAL: Intravenous: Omnipaque 350 Contrast volume: 100 cc COMPARISON: No exams were available for comparison FINDINGS: CHEST: PULMONARY ARTERIES: Less than optimal injection/opacification of pulmonary arteries. There are no ob vious intraluminal filling defects to suggest acute pulmonary emboli. LUNGS: Small-moderate size left pleural effusion.. No evidence of pulmonary infarction. Some atelec tasis in the basal segments of the left lower lobe noted associated with the pleural effusion. No si gnificant focal findings in the trachea and mainstem bronchi. MEDIASTINUM: There is no hilar nor mediastinal adenopathy. Visualized thyroid unremarkable. CARDIAC: Mild cardiomegaly. Small pericardial effusion. The caliber of the thoracic aorta is within normal limits. No evidence of dissection. There is no significant shift of the interventricular sep chito. PARTIALLY VISUALIZED UPPERMOST ABDOMEN: Gallbladder surgically absent. OSSEOUS: No significant osseous lesions.No fractures evident. IMPRESSION: 1. Suboptimal injection bolus. No obvious acute pulmonary emboli. No aortic dissection. 2. Small-moderate sized left pleural effusion. Atelectasis also evident in the basal segments of the left lower. No evidence of pulmonary infarction nor obvious confluent infiltrates. 3. Cardiomegaly. Small pericardial effusion. RADIATION DOSE DELIVERED: 619.99mGy.cm Total DLP DATA REPOSITORY: All CT scans at this facility are submitted to the National Radiology Data Registry (NRDR) Dose Index Registry (DIR) with the [employer] ([employer]). RADIATION OPTIMIZATION: All CT scans at this facility use at least one of these dose optimization te chniques: automated exposure control; mA and/or kV adjustment per patient size (includes targeted exa ms where dose is matched to clinical indication); or iterative reconstruction.
[2022-05-06 01:17] LABS: Influenza A PCR Negative (Negative); Influenza B PCR Negative (Negative); RSV PCR Negative (Negative)
[2022-05-06 01:23] LABS: COVID-19 PCR Positive (Negative); Source Nasopharynx
[2022-05-06 01:34] LABS: Procalcitonin 0.1 ng/mL
[2022-05-06] MEDS: Prochlorperazine 10 MG/2 ML VIAL (01:42)
[2022-05-06] MEDS: ACETAMINOPHEN 1,000 MG/100 ML BTL 400 MG IVPB (01:45)
[2022-05-06] MEDS: Omnipaque 350 MG/ML 100 ML BTL IJ (02:01)
[2022-05-06 02:03] LABS: Bilirubin Negative (Negative); Blood Trace-intact (Negative); Clarity Clear (Clear); Glucose Negative (Negative); Ketones Trace mg/dL (Negative); Leukocyte Esterase Negative (Negative); Nitrite Negative (Negative); Urobilinogen 0.2 EU/dL (Up TO 0.2); pH 7.5 (5-8)
[2022-05-06 02:12] LABS: Bacteria Few HPF (Negative); C & S Indicated? C&S Done As Ordered; Casts Negative LPF (Negative); Crystals Negative HPF (Negative); Epithelial Cells Rare HPF (Negative); Mucus Negative (Negative)
[2022-05-06] MEDS: Normal Saline Flush 10 ML SYR IVP (02:32)
--- NOTE | 2022-05-06 03:09 | DI.VRAD_ITS ---
PROCEDURE INFORMATION: Exam: CTA Chest With Contrast Exam date and time: 05/06/2022 2:01 AM Age: 66 years old Clinical indication: Cough and other: Tachycardia, covid positive, ? pe TECHNIQUE: Imaging protocol: Computed tomographic angiography of the chest with contrast. 3D rendering (Not supervised by radiologist): MIP and/or 3D reconstructed images were created by the technologist. Radiation optimization: All CT scans at this facility use at least one of these dose optimization techniques: automated exposure control; mA and/or kV adjustment per patient size (includes targeted exams where dose is matched to clinical indication); or iterative reconstruction. Contrast material: OMNIPAQUE 350; Contrast volume: 100 ml; Contrast route: INTRAVENOUS (IV); COMPARISON: CR XR CHEST 2V PA LATERAL 05/26/2021 4:37 PM FINDINGS: Pulmonary arteries: There is pulmonary vascular congestion. There are no pulmonary emboli. Aorta: Unremarkable. No aortic aneurysm. No aortic dissection. Lungs: There is no focal airspace consolidation. Pleural spaces: There is a small left pleural effusion. Heart: The heart is enlarged. There is a small pericardial effusion. There are significant coronary artery vascular calcifications. Lymph nodes: Unremarkable. No enlarged lymph nodes. Gallbladder and bile ducts: There are clips in the gallbladder fossa, post cholecystectomy. Bones/joints: There are multilevel degenerative changes of the thoracic spine. Soft tissues: Unremarkable. IMPRESSION: 1. Small left pleural effusion. 2. Cardiomegaly. 3. Small pericardial effusion. 4. Pulmonary vascular congestion. 5. No evidence of pulmonary embolism or aortic dissection. 6. Degenerative changes. Dictated and Authenticated by: Gama Villa MD. Ordering:MABEL Kramer MD
[2022-05-06 04:06] VITALS: BP 123/50; PULSE 93; RESP 25; O2SAT 92
== END 2022-05-06 04:37 | disposition home or self-care (01) ==
PROVIDERS: Emergency Provider Emergency Medicine; PCP Nurse Practitioner
DX: U07.1 COVID-19 (principal); E83.42 Hypomagnesemia; E11.9 Type 2 diabetes mellitus without complications; R11.2 Nausea with vomiting, unspecified; J90 Pleural effusion, not elsewhere classified; I31.3 Pericardial effusion (noninflammatory); Z79.4 Long term (current) use of insulin; Z79.82 Long term (current) use of aspirin
CPT/HCPCS: 36415; 71275; 80053; 82805; 84145; 87040; 87637; 96361; 96365; 96366; 96375; 99284; 99285; 81003; 81015; 83605; 83735; 85025; 87086; J0131; J0780; J2405; J3490

== ENCOUNTER 2022-05-10 15:23 | Inpatient (IN) | payer MEDICARE, OTHER, SELFPAY ==
[2022-05-10] VITALS (20 sets, daily range): BP systolic 176–205; BP diastolic 65–86; PULSE 76–100; RESP 11–21; TEMP 36.8–36.9; O2SAT 92–98
--- NOTE | 2022-05-10 15:45 | DI.RAD_ITS ---
Exam(s) XR PORTABLE CHEST AP EXAM: XR PORTABLE CHEST AP CLINICAL HISTORY: covid +, sob. TECHNIQUE: 2D digital imaging was performed. COMPARISON: CR,XR XR CHEST 2V PA LATERAL from 05/26/2021 FINDINGS: Single AP portable view. Heart size is upper normal. The mediastinum is not widened. Right lung is clear but there appears to be probable infiltrate in left lower lobe retrocardiac regio n. Mild blunting of left costophrenic angle. Probably small amount left pleural fluid. IMPRESSION: Subtle evidence of left lower lobe infiltrate and possible small left pleural effusion. Recommend no nportable PA and lateral views when clinically possible. DATA REPOSITORY: RADIATION DOSE DELIVERED: All CT scans at this facility use at least one of these dose optimization techniques: automated exposure control; mA and/or kV adjustment per patient size (includes targeted e xams where dose is matched to clinical indication); or iterative reconstruction.
--- NOTE | 2022-05-10 15:53 | ED.GENADUL_ITS ---
Discharge Plan Disposition Patient Disposition: [facility] INPATIENT Condition: Good Discharge Details Chief Complaint: RespSymp Clinical Impression: COVID, Fever, HCAP (healthcare-associated pneumonia) Primary Care Provider: Chito Brunner ED Provider: Jayy Parish Home Meds and New Rx's Prescriptions: No Action potassium chloride 10 MEQ capsule, extended release 10 meq PO DAILY PRN insulin glargine [Lantus U-100 Insulin] 100 UNIT/ML solution 40 units Sub-Q DIRECTED albuterol sulfate 3 ML solution for nebulization 1 unit Inhalation QID PRN Label Comments: 02/10/14- pt has not used for months, per pt atorvastatin [Lipitor] 10 MG tablet 10 mg PO DAILY fluconazole 150 MG tablet 150 mg PO .X1 PRN methylprednisolone 4 MG tablet 4 mg PO DAILY leflunomide [Arava] 20 MG tablet 20 mg PO DAILY esomeprazole magnesium [Nexium] 40 MG capsule,delayed release(DR/EC) 40 mg PO DAILY betamethasone, augmented [Diprolene (augmented)] 50 GM ointment 1 applic Topical DAILY PRN folic acid 1 MG tablet 1 mg PO DAILY zolpidem 10 MG tablet 10 mg PO HS calcium carbonate-vitamin D3 [Calcium 600 + D(3)] 1 EACH tablet 1 tab PO BID carvedilol 12.5 mg tablet PO BID Label Comments: Take 1 tablet by mouth 2 times daily with meals. aspirin 81 mg Tablet,Chewable 81 mg PO DAILY Multi Vitamin 9 mg iron/15 mL Liquid 1 mg PO DAILY insulin lispro [Humalog KwikPen Insulin] 100 unit/mL Insulin Pen 10 unit SUBCUT 1200 Humira 10 mg/0.2 mL Syringe Kit 10 mg SUBCUT albuterol sulfate 0.63 mg/3 mL Solution For Nebulization 2 mg inhalation PRN PRN Narcan 4 mg/actuation spray,non-aerosol 1 spray RICCI ONCE PRN (Reason: opioid overdose) Qty: 2 0RF Medical Decision Making This is a very pleasant 66-year-old female with a past medical history of diabetes mellitus, rheumatoid arthritis, chronic immunosuppressive medication use, reflux, who presents today for evaluation of cough, fever, and chills. 6 days ago the patient developed mild cough and chills. She came to be evaluated in the emergency department, and she is found to be COVID-positive. CTA was stable/unremarkable. Blood cultures are negative. Urinalysis was questionably positive, and urine cultures have returned with gram-negative rods. At that time per report the patient declined monoclonal antibody therapy. Patient's oxygen saturations were stable, she was discharged home. Unfortunately since then the patient has continued to decline. She has become more short of breath, has had an increase in worsening cough, she has continued to have fever and chills which did resolve for single day yesterday and then came back today. She has increased urinary frequency, and admits to continued mild dysuria. Patient denies any hemoptysis. She does admit to chest pain with cough. She denies any other complaints at this time. Exam demonstrates unstable female. Heart rate slightly elevated, oxygenation is around 92 to 93%. Lungs demonstrate crackles in the left lung field. No rhonchi. Minimal peripheral edema. Nontender abdomen. Differential is highest for COVID and COVID-pneumonia, also includes suspected UTI. PE is on the differential but less likely. We will evaluate for these concerning etiologies, monitor closely and reassess. I do feel that the patient is a candidate for monoclonal antibody therapy if she would go home. We will give this now as she is immunocompromised in general and we are at the end of potential viability for this treatment option. Patient has agreed to this. 8:35 PM Patient's laboratory work-up has returned, she has no evidence of white count, however she is chronically immunocompromise, D-dimer is elevated at 1200, CTA was ordered and shows no evidence of pulmonary embolism, it does confirm that there was consolidation in the left lower lobe. VBG stable. Electrolytes stable. Renal function stable. proBNP elevated at 2700, which is higher than normal. We will avoid excessive hydration. She does not look to be in florid CHF though. Procalcitonin is less than 0.1, thyroid function normal, urinalysis shows no evidence of infection. Because of the isolated pneumonia, I do feel that the patient would benefit from bacterial coverage. To multiple recent admissions, hospitalizations and hospital visits we will treat for hospital- acquired pneumonia. She does have a penicillin allergy. We will give vancomycin, aztreonam, and azithromycin. With her multiple risk factors, COVID, suspected bacterial pneumonia, borderline oxygenation, and her risk factors, I do feel that inpatient admission is indicated. I discussed the case with the hospitalist, he agrees with the assessment and plan. I have extensively reviewed the treatment plan with the patient. I have addressed all patient concerns at this time. I have also discussed the plan with the admitting physician and they agree with the current assessment and plan and have agreed to assume responsibility for the patient. All parties demonstrate verbal und erstanding and agreement with our assessment and plan at this time. The documentation in this chart was dictated using [employer] dictation software. Please excuse any dictation errors. FINDINGS: Pulmonary arteries: No evidence of pulmonary embolus to the segmental level. Aorta: No aneurysm of the aorta. No dissection of the aorta. Lungs: Consolidation in the left lower lobe may represent atelectasis or pneumonia.. Pleural spaces: Moderate left pleural effusion. Smaller right pleural effusion. Heart: Coronary artery calcifications may indicate coronary artery disease. Lymph nodes: Unremarkable. No enlarged lymph nodes. Gallbladder and bile ducts: Cholecystectomy Bones/joints: Unremarkable. No acute fracture. Soft tissues: Unremarkable. IMPRESSION 1. No evidence of pulmonary embolus to the segmental level. 2. No aneurysm of the aorta. 3. No dissection of the aorta. 4. Moderate left pleural effusion. Smaller right pleural effusion. 5. Consolidation in the left lower lobe may represent atelectasis or pneumonia.. Thank you for allowing us to participate in the care of your patient. Dictated and Authenticated by: Marilu Huddleston MD 05/10/2022 8:15 PM Eastern Time ([place] & [place]) FINDINGS: Tubes, catheters and devices: EKG wires overlie the chest. Lungs: Left lower lobe consolidation which has progressed since the prior study.. Prominent increased perihilar markings. Pleural spaces: Blunted left lateral costophrenic angle consistent with pleural effusions. Heart/Mediastinum: Cardiomegaly. Atherosclerotic disease. Bones/joints: Unremarkable for patient's age. 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 IMPRESSION: 1. Left lower lobe pneumonia. Left pleural effusion. 2. Prominent perihilar markings consistent with pulmonary vascular congestion. 3. 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 Thank you for allowing us to participate in the care of your patient. HPI General Date/Time Provider Initiated Documentation: 05/10/22 15:41 . HPI Narrative: This is a very pleasant 66-year-old female with a past medical history of diabetes mellitus, rheumatoid arthritis, chronic immunosuppressive medication use, reflux, who presents today for evaluation of cough, fever, and chills. 6 days ago the patient developed mild cough and chills. She came to be evaluated in the emergency department, and she is found to be COVID-positive. CTA was stable/unremarkable. Blood cultures are negative. Urinalysis was questionably positive, and urine cultures have returned with gram-negative rods. At that time per report the patient declined monoclonal antibody therapy. Patient's oxygen saturations were stable, she was discharged home. Unfortunately since then the patient has continued to decline. She has become more short of breath, has had an increase in worsening cough, she has continued to have fever and chills which did resolve for single day yesterday and then came back today. She has increased urinary frequency, and admits to continued mild dysuria. Patient denies any hemoptysis. She does admit to chest pain with cough. She denies any other complaints at this time. Related Data Home Medications Medication Instructions Recorded Confirmed albuterol sulfate 2.5 mg/3 mL 1 unit inhalation QID PRN 01/11/14 05/26/21 (0.083 %) solution for nebulization atorvastatin 10 mg tablet (Lipitor) 10 mg PO DAILY 01/11/14 02/26/22 betamethasone, augmented 0.05 % 1 applic topical DAILY PRN 01/11/14 05/26/21 topical ointment (Diprolene (augmented)) calcium carbonate 600 mg-vitamin 1 tab PO BID 01/11/14 05/26/21 D3 10 mcg (400 unit) tablet (Calcium 600 + D(3)) esomeprazole magnesium 40 mg 40 mg PO DAILY 01/11/14 02/26/22 capsule,delayed release (Nexium) fluconazole 150 mg tablet 150 mg PO .X1 PRN 01/11/14 02/26/22 folic acid 1 mg tablet 1 mg PO DAILY 01/11/14 02/26/22 insulin glargine 100 unit/mL 40 units subcut DIRECTED 01/11/14 02/26/22 subcutaneous solution (Lantus U-100 Insulin) leflunomide 20 mg tablet (Arava) 20 mg PO DAILY 01/11/14 02/26/22 methylprednisolone 4 mg tablet 4 mg PO DAILY 01/11/14 02/26/22 potassium chloride 10 mEq 10 meq PO DAILY PRN 01/11/14 02/26/22 capsule,extended release zolpidem 10 mg tablet 10 mg PO HS 01/11/14 02/26/22 adalimumab 10 mg/0.2 mL 10 mg subcut 04/09/19 subcutaneous syringe kit (Humira) albuterol sulfate 0.63 mg/3 mL 2 mg inhalation PRN PRN 04/09/19 05/26/21 solution for nebulization aspirin 81 mg chewable tablet 81 mg PO DAILY 04/09/19 02/26/22 insulin lispro 100 unit/mL 10 unit subcut 1200 04/09/19 02/26/22 subcutaneous pen (Humalog KwikPen (U-100) Insulin) multivitamin with minerals-iron 1 mg PO DAILY 04/09/19 05/26/21 fumarate 9 mg iron/15 mL oral liquid (Multi Vitamin) naloxone 4 mg/actuation nasal 1 spray intranasal ONCE PRN opioid 04/11/19 05/26/21 spray (Narcan) overdose #2 ea carvedilol 12.5 mg tablet tab PO BID 02/26/22 Previous Rx's Medication Instructions Recorded naloxone 4 mg/actuation nasal 1 spray intranasal ONCE PRN opioid 04/11/19 spray (Narcan) overdose #2 ea Allergies Allergy/AdvReac Type Severity Reaction Status Date / Time clarithromycin [From Biaxin] Allergy Intermediate Skin Rash Unverified 05/10/22 15:37 Penicillins Allergy Intermediate Skin Rash Unverified 05/10/22 15:37 Sulfa (Sulfonamide Allergy Intermediate Skin Rash Unverified 05/10/22 15:37 Antibiotics) capsaicin Allergy Anaphylaxsi Unverified 05/10/22 15:37 s nickel Allergy Unverified 05/10/22 15:37 General Stated Complaint: RespSymp ARABELLA: 3 Review of Systems All systems reviewed & are unremarkable except as noted in HPI and below PFSH All Active Problems (Updated 05/10/22 @ 20:38 by Jayy Parish DO) Fever (Acute) COVID (Acute) Hypomagnesemia (Acute) Nausea & vomiting (Acute) HCAP (healthcare-associated pneumonia) (Acute) Elevated blood pressure reading (Acute) Pain of left calf (Acute) Cellulitis and abscess of foot (Acute) Contusion of right foot (Acute) Sepsis (Acute) Bone infection of left foot (Acute) Status post total left knee replacement (Acute) Pain (Acute) Lower extremity pain (Acute) Medical History Bacteremia due to group B Streptococcus Diabetes mellitus Edema, peripheral Rheumatoid arthritis Surgical History History of left knee replacement Social History Smoking/Tobacco Use Status: Never Smoking risk assessment performed?: Yes Alcohol Intake: current Alcohol Intake frequency: holidays/special occasions only Drug use: Never Substance use type: does not use Do you feel safe at home: Yes Do you feel safe in your relationship?: Yes Exam Narrative Exam Narrative: 1.Const: Well-developed, appearing stated age 2.Eyes: PERRL, no conjunctival injection, and symmetrical lids. 3.ENT: Atraumatic external nose and ears. Dry MM. Neck: Symmetric, trachea midline, No thyromegaly. 4.CVS: +S1/S2, No murmurs or gallops. Peripheral pulses 2+ and equal in all extremities. Brisk capillary refill in all extremities. 5.RESP: Unlabored respiratory effort. crackles in the left lower lung field. No wheezes or rhonchi. 6.GI: Soft, Nontender/Nondistended, No hepatosplenomegaly. No guarding or rebound. 7.MSK: Normocephalic/Atraumatic, Extremities w/o deformity or ttp No cyanosis or clubbing, chronic wounds of the lower extremity, Aircast in place. 8.Skin: Warm, Dry. 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 Sensation grossly intact, no focal neurologic deficits. 10.Psych: (AAO) x3. Appropriate mood and affect Course Vital Signs Vital signs: Vital Signs Temperature 36.8 C 05/10/22 15:30 Pulse 100 H 05/10/22 15:30 Respiratory Rate 18 05/10/22 15:30 Blood Pressure 205/86 H 05/10/22 15:30 Pulse Oximetry 95 05/10/22 15:30 Temperature 36.8 C 05/10/22 15:30 Temperature Source Temporal Artery Scan 05/10/22 15:30 Pulse 100 H 05/10/22 15:30 Respiratory Rate 18 05/10/22 15:30 Respiratory Effort Non-Labored 05/10/22 15:36 Blood Pressure 205/86 H 05/10/22 15:30 Blood Pressure Position Sitting 05/10/22 15:30 Pulse Oximetry 95 05/10/22 15:30 Oxygen Delivery Method Room Air 05/10/22 15:30 Oxygen Flow Rate 0 05/10/22 15:30 Pain Level 6 05/10/22 15:30 Lab/Test Results Lab/Test Results: 05/10/22 15:51 Blood Blood Culture - Pending 05/10/22 15:51 Blood Blood Culture - Pending
--- NOTE | 2022-05-10 16:00 | RT.EKG_ITS ---
APPROVED REPORT Exam: Resting ECG Reason for Exam: chest pain Patient Location: E HR:87 bpm ECG Measurements Heart Rate 87 AXIS [place] 145 P 43 QRSd 128 QRS -64 QT 398 T 30 QTc 480 Conclusion Sinus rhythm...normal P axis, V-rate 60- 99 RBBB and LAFB...QRSd >120mS, axis(-40,240) Phyisician: no stemi, unchanged
[2022-05-10 17:21] LABS: BE (Venous) 4 mmol/L (-2-3); HCO3 (Venous) 30 mmol/L (23-28); O2 Sat (Venous) 42 %; TCO2 (Venous) 28 mmol/L (24-29); pCO2 (Venous) 51 mmHg (41-51); pH (Venous) 7.37 (7.31-7.41); pO2 (Venous) 26 mmHg
[2022-05-10 17:23] LABS: Lactate 1.9 mmol/L (0.6-1.4)
[2022-05-10 17:24] LABS: Abs Immature Grans 0.02 10^3/uL (0.0-0.06); Absolute Basophil Count 0.05 10^3/uL (0.0-0.2); Absolute Eosinophil Count 0.24 10^3/uL (0.0-0.7); Absolute Lymphocyte Count 1.73 10^3/uL (1.2-3.4); Absolute Monocyte Count 0.75 10^3/uL (0.1-0.8); Absolute Neutrophil Count 2.87 10^3/uL (1.2-6.7); Basophils % 0.9; Eosinophils % 4.2; HCT 35.2 % (36.0-46.0); HGB 11.3 g/dL (11.2-15.7); Immature Grans % 0.4; Lymphocytes % 30.6; MCH 27.7 pg (27.0-33.0); MCHC 32.1 % (32.0-36.0); MCV 86 fL (80-95); MPV 10.6 fL (8.0-11.0); Monocytes % 13.3; Neutrophils % 50.6; Platelet Count 284 10^3/uL (130-400); RBC 4.08 10^6/uL (3.93-5.22); RDW 14.8 % (11.7-14.6); RDW-SD 47.1 fL; WBC 5.66 10^3/uL (4.4-10.8)
[2022-05-10 17:29] LABS: Influenza A PCR Negative (Negative); Influenza B PCR Negative (Negative); RSV PCR Negative (Negative)
[2022-05-10 17:31] LABS: Bilirubin Negative (Negative); Blood Trace-lysed (Negative); Clarity Clear (Clear); Glucose Negative (Negative); Ketones Negative (Negative); Leukocyte Esterase Negative (Negative); Nitrite Negative (Negative); Specific Gravity 1.025 (1.005-1.025); Urobilinogen 0.2 EU/dL (Up TO 0.2); pH 7.5 (5-8)
--- NOTE | 2022-05-10 17:40 | DI.VRAD_ITS ---
PROCEDURE INFORMATION: Exam: XR Chest Exam date and time: 05/10/2022 4:57 PM Age: 66 years old Clinical indication: Shortness of breath and other: Covid + TECHNIQUE: Imaging protocol: Radiologic exam of the chest. Views: 1 view. COMPARISON: CT CHEST PE CTA 08/02/2022 02:01 FINDINGS: Tubes, catheters and devices: EKG wires overlie the chest. Lungs: Left lower lobe consolidation which has progressed since the prior study.. Prominent increased perihilar markings. Pleural spaces: Blunted left lateral costophrenic angle consistent with pleural effusions. Heart/Mediastinum: Cardiomegaly. Atherosclerotic disease. Bones/joints: Unremarkable for patient's age. 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 IMPRESSION: 1. Left lower lobe pneumonia. Left pleural effusion. 2. Prominent perihilar markings consistent with pulmonary vascular congestion. 3. 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 Dictated and Authenticated by: Kristine Jordan MD. Ordering:ISMA Hope MD
[2022-05-10 17:44] LABS: COVID-19 PCR Positive (Negative)
[2022-05-10 17:52] LABS: Bacteria Rare HPF (Negative); C & S Indicated? No; Crystals Negative HPF (Negative); Epithelial Cells Many HPF (Negative); Mucus Negative (Negative); WBC Negative HPF (0-5)
[2022-05-10 18:01] LABS: D-Dimer 1263 ng/mlFEU (<500)
[2022-05-10 18:03] LABS: ALT 17 U/L (14-59); AST 23 U/L (15-37); Albumin 3.2 g/dL (3.4-5.0); Alkaline Phosphatase 158 U/L (46-116); Anion Gap 8.8 mmol/L (3-11); BUN 9 mg/dL (7-18); Bilirubin, Total 0.9 mg/dL (0.2-1.0); CO2 29.2 mmol/L (21.0-32.0); CREATININE 0.9 mg/dL (0.55-1.02); Calcium 8.7 mg/dL (8.5-10.1); Chloride 98 mmol/L (98-107); Estimated GFR 70.95 (mL/min/1.73m2); Glucose 86 mg/dL (74-106); NT-proBNP 2723 pg/mL (<300); Potassium 3.4 mmol/L (3.5-5.1); Sodium 136 mmol/L (136-145); TSH (W/Ref FT4) 2.33 uIU/mL (0.36-3.74); Total Protein 7.3 g/dL (6.4-8.2)
--- NOTE | 2022-05-10 18:15 | DI.CT_ITS ---
Exam(s) CT CHEST PE CTA EXAM: CT CHEST PE CTA CLINICAL HISTORY: covid+, elevated dimer, sob, LLL pneumonia. TECHNIQUE: Imaging Protocol: CT angiography of the chest was performed using pulmonary embolus anant col. Multi planar reconstructions were performed. CONTRAST MATERIAL: Intravenous: Omnipaque 350 Contrast volume: 100 cc COMPARISON: CT CT CHEST PE CTA from 05/06/2022 FINDINGS: CHEST: PULMONARY ARTERIES: Opacification of the pulmonary arteries is less than optimal distally.There are n o obvious arterial filling defects in the pulmonary artery tree to suggest the presence of acute pulm onary emboli. LUNGS: There are bilateral pleural effusions, left larger than right. The left pleural effusion is s mall-moderate size. Right pleural effusion is small. There is some volume loss in basal segments of the left lower lobe. Mild infiltrate at this level noted. No infiltrate evident in the opposite-ri ght lung. No ominous pulmonary nodules.. There are no pleural effusions. MEDIASTINUM: Small lymph nodes in both hilar regions. No gross lymphadenopathy. No adenopathy in th e anterior mediastinal fat. Slightly prominent subcarinal lymph nodes. Partially visualized thyroid unremarkable CARDIAC: Heart size is upper normal. There is no pericardial effusion.Caliber of the thoracic aorta is within normal limits. No evidence of aortic dissection. There is no significant shift of the inte rventricular septum. Also no reflux of contrast into the intrahepatic veins. PARTIALLY VISUALIZED UPPERMOST ABDOMEN: No adrenal masses. Spleen size normal. Gallbladder surgical ly absent. OSSEOUS: No significant osseous lesions.. IMPRESSION: 1. No evidence of acute pulmonary emboli. No evidence of pulmonary infarction.No aortic dissection. 2. Small-moderate sized left pleural effusion. Atelectasis-infiltrate in the left lung base noted. Smaller right pleural effusion.. 3. No evidence of aortic dissection and no evidence of pericardial effusion. Other findings as above. RADIATION DOSE DELIVERED: 538.67mGy.cm Total DLP DATA REPOSITORY: All CT scans at this facility are submitted to the National Radiology Data Registry (NRDR) Dose Index Registry (DIR) with the [employer] (ACR). RADIATION OPTIMIZATION: All CT scans at this facility use at least one of these dose optimization te chniques: automated exposure control; mA and/or kV adjustment per patient size (includes targeted exa ms where dose is matched to clinical indication); or iterative reconstruction.
[2022-05-10 18:23] LABS: Troponin I < 50 ng/L (<or=60)
[2022-05-10 18:51] LABS: Procalcitonin < 0.1 ng/mL
[2022-05-10] MEDS: DOXYCYCLINE 100 MG in Normal Saline 100 ML IVPB (19:07)
[2022-05-10] MEDS: Omnipaque 350 MG/ML 100 ML BTL IJ (19:51)
[2022-05-10] MEDS: VANCOMYCIN 2,000 MG in Normal Saline 500 ML 333.3333 MG IVPB (20:12)
--- NOTE | 2022-05-10 20:16 | DI.VRAD_ITS ---
PROCEDURE INFORMATION: Exam: CTA Chest With Contrast Exam date and time: 05/10/2022 7:42 PM Age: 66 years old Clinical indication: Other: Covid+, elevated ddimer, SOB, lll pneumonia TECHNIQUE: Imaging protocol: Computed tomographic angiography of the chest with contrast. 3D rendering (Not supervised by radiologist): MIP and/or 3D reconstructed images were created by the technologist. Radiation optimization: All CT scans at this facility use at least one of these dose optimization techniques: automated exposure control; mA and/or kV adjustment per patient size (includes targeted exams where dose is matched to clinical indication); or iterative reconstruction. Contrast material: OMNI 350; Contrast volume: 100 ml; Contrast route: INTRAVENOUS (IV); COMPARISON: CT CHEST PE CTA 05/06/2022 2:01 AM FINDINGS: Pulmonary arteries: No evidence of pulmonary embolus to the segmental level. Aorta: No aneurysm of the aorta. No dissection of the aorta. Lungs: Consolidation in the left lower lobe may represent atelectasis or pneumonia.. Pleural spaces: Moderate left pleural effusion. Smaller right pleural effusion. Heart: Coronary artery calcifications may indicate coronary artery disease. Lymph nodes: Unremarkable. No enlarged lymph nodes. Gallbladder and bile ducts: Cholecystectomy Bones/joints: Unremarkable. No acute fracture. Soft tissues: Unremarkable. IMPRESSION: 1. No evidence of pulmonary embolus to the segmental level. 2. No aneurysm of the aorta. 3. No dissection of the aorta. 4. Moderate left pleural effusion. Smaller right pleural effusion. 5. Consolidation in the left lower lobe may represent atelectasis or pneumonia.. Dictated and Authenticated by: Marilu Huddleston MD. Ordering:ISMA Hope MD
[2022-05-10 21:00] LABS: Troponin I < 50 ng/L (<or=60)
--- NOTE | 2022-05-10 22:33 | TELEP.MEDR_ITS ---
Date of service: 05/10/22 Time of Service: 22:33 Telepharmacy Home Med Rec Allergies Allergies: clarithromycin [From Biaxin] Allergy (Intermediate, Unverified 05/10/22 15:37) Skin Rash Penicillins Allergy (Intermediate, Unverified 05/10/22 15:37) Skin Rash Sulfa (Sulfonamide Antibiotics) Allergy (Intermediate, Unverified 05/10/22 15:37) Skin Rash capsaicin Allergy (Unverified 05/10/22 15:37) Anaphylaxsis nickel Allergy (Unverified 05/10/22 15:37) Interview Person Interviewed: Patient Quality Quality of Interview/Accuracy of Medication List: Good Sources Sources used to compile medication lsit: [employer] [facility] Medication List, Patient List and [employer]s Changes made to Home Medication List: ADDITIONS: Diphenhydramine 50 mg po c opioid dose prn Ascorbic acid (unknown strength) po qday Cyclobenzaprine 10 mg po tid prn Doxycycline hyclate 100 mg po bid through end of May Metoclopramide 5 mg po tid 30 minutes before meals Oxycodone 5-10 mg po q6h prn Ondansetron 4 mg po q8h prn Montelukast 10 mg po qam APAP 1300 mg po tid DELETIONS: Albuterol (duplicate) Atorvastatin Betamethasone topical Fluconazole Humira Narcan (pt doesn't have in her possession) Potassium chloride CHANGES: Carvedilol 12.5 mg po bid Lantus 24 units sc qam Humalog 10 units + SS tid c meals Additional Notes Additional Notes: Pt most often injects Humalog 14 units sc with dinner, normally doesn't need with breakfast or lunch due to BG readings. Recommended Changes Recommended Changes(reason for recommendation): None Attestation: The home medication list is now updated to the best of my knowledge and is ready to be reconciled by the provider. Please contact the TelePharmacy Medication Reconciliation Pharmacist at for any questions.
[2022-05-10] MEDS: AZTREONAM 2,000 MG in Normal Saline 100 ML 200 MG IVPB (22:44)
[2022-05-10] MEDS: Acetaminophen 325 MG TAB PO (23:08)
[2022-05-10] MEDS: Enoxaparin 40 MG/0.4 ML SYR SC (23:11)
[2022-05-11] VITALS (9 sets, daily range): BP systolic 148–183; BP diastolic 68–89; PULSE 68–107; RESP 14–18; TEMP 36.1–37; O2SAT 93–97
--- NOTE | 2022-05-11 01:09 | HPE_ITS ---
Date of service: 05/10/22 Time of Service: 22:55 Assessment and Plan Assessment and plan (1) Pneumonia: Status: Acute Assessment and plan: The patient's primary reason for admission is her initial respiratory distress in the ED and new focal pneumonia on her chest CT. BNaP high but clinically not CHF. Given these factors and her immune suppression, I agree with admitting her for observation and treating bacterial pneumonia, though her pneumonia severity is not high. She does not have chronic lung disease to suggest high risk for pseudomonas, so given this and her PCN allergy without clear history of cephalosporin tolerance I will stop the vanco/aztreonam/doxy and treat with levofloxacin. She has blood cultures pending, try to get sputum. (2) COVID: Status: Acute Assessment and plan: She is hospitalized and has risk factors for progression to severe disease. Given this, she should get remdesavir, but not dexamethasone. However she came in on methylprednisolone so I will treat with prednisone to avoid adrenal insufficiency with acute illness. She was given MAB in the ED as well. (3) Elevated blood pressure reading: Status: Acute Assessment and plan: She has been in pain, will resume outpatient medications and follow. (4) Pain of left calf: Status: Acute Assessment and plan: left leg swelling not new, but given increased pain and very high risk, try to get doppler u/s for DVT (5) Diabetes mellitus: Assessment and plan: Reports good control, get A1c with labs. Continue outpatient basal/bolus insulin along with ISS. 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 She was on humira in past but stopped after bouts of sepsis, now on the DMARD leflunomide with folate, continue. (7) Chronic pain: Status: Chronic Assessment and plan: Continue outpatient pain regimen (8) DVT prophylaxis: Status: Acute Assessment and plan: LMWH at preventive dose pending LE u/s (9) Discharge planning issues: Status: Acute Assessment and plan: Consider discharge if respiratory status continues stable to finish pneumonia treatment as outpatient. History of Present Illness History of Present Illness Chief Complaint: short of breath Narrative: 66 yo F with history of psoriatic arthritis, chronic pain, type 2 diabetes, BMI of 36 who initially presented to the [facility] emergency room just after midnight on 05/06/22 with fevers and chills that started 05/05/12. She was concerned that her symptoms were similar to previous episoded of sepsis, but she was diagnosed with COVID. At that time she had a negative CT of the chest. She declined MAB treatment at that time. She did not take outpatient oral treatment. Since then, she experienced gradually increasing shortness and heaviness with her breath along with ongoing fevers and chills. She developed cough but not productive. She has some increase body aches along with her chronic pain. She returned for re-evaluation in the ED. Review of Systems Constitutional Constitutional: Reports as per HPI, Reports anorexia, Reports chills, Reports fever(s), Reports headache(s), Reports lethargy and Denies weakness Eyes Eyes: Denies change in vision and Denies irritation ENT Ears, Nose, Mouth, and Throat: Denies dizziness, Reports headache(s), Reports nasal congestion, Denies nasal discharge and Denies sore throat Cardiovascular Cardiovascular: Denies syncope, Denies palpitations and Denies orthopnea Comments: chest heavy with cough Respiratory Respiratory: Denies hemoptysis, Denies excessive phlegm production, Reports pain with cough and Denies wheezing Gastrointestinal Gastrointestinal: Denies abdominal pain, Denies change in bowel habits, Denies heartburn, Denies diarrhea and Denies vomiting Genitourinary Genitourinary: Denies hematuria, Denies dysuria and Reports other (+ frequent urination) Musculoskeletal Musculoskeletal: Reports back pain, Reports arthralgias (chronic pain in knees/legs) and Reports joint swelling (hands, chronic) Integumentary/Breasts Skin/Breast: Denies rash and Denies skin ulcer Neurologic Neurologic: Denies dizziness, Denies syncope, Reports headache(s), Denies sensory deficit and Denies weakness Psychiatric Psychiatric: Denies mood swings Endocrine Endocrine: Denies palpitations Hematologic/Lymphatic Hematologic/Lymphatic: Denies easy bleeding Allergic/Immunologic Allergic/Immunologic: Denies wheezing PFSH All Active Problems (Updated 05/11/22 @ 01:46 by Jorge Graham) Chronic pain (Chronic) Discharge planning issues (Acute) DVT prophylaxis (Acute) Pneumonia (Acute) Fever (Acute) COVID (Acute) Hypomagnesemia (Acute) Nausea & vomiting (Acute) Elevated blood pressure reading (Acute) Pain of left calf (Acute) Cellulitis and abscess of foot (Acute) Contusion of right foot (Acute) Sepsis (Acute) Bone infection of left foot (Acute) Status post total left knee replacement (Acute) Pain (Acute) Lower extremity pain (Acute) Medical History (Updated 05/11/22 @ 01:46 by Jorge Graham) Bacteremia due to group B Streptococcus Diabetes mellitus Edema, peripheral Psoriatic arthritis Surgical History (Updated 05/11/22 @ 01:34 by Jorge Graham) 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 Meds Allergies and Home Medications Allergies Allergy/AdvReac Type Severity Reaction Status Date / Time clarithromycin [From Biaxin] Allergy Intermediate Skin Rash Unverified 05/10/22 15:37 Penicillins Allergy Intermediate Skin Rash Unverified 05/10/22 15:37 Sulfa (Sulfonamide Allergy Intermediate Skin Rash Unverified 05/10/22 15:37 Antibiotics) capsaicin Allergy Anaphylaxsi Unverified 05/10/22 15:37 s nickel Allergy Unverified 05/10/22 15:37 Home Medications Medication Instructions Recorded Confirmed Type albuterol sulfate 2.5 mg/3 mL 1 unit inhalation QID PRN 01/11/14 05/10/22 History (0.083 %) solution for nebulization calcium carbonate 600 mg-vitamin 1 tab PO BID 01/11/14 05/10/22 History D3 10 mcg (400 unit) tablet (Calcium 600 + D(3)) esomeprazole magnesium 40 mg 40 mg PO DAILY 01/11/14 05/10/22 History capsule,delayed release (Nexium) folic acid 1 mg tablet 1 mg PO DAILY 01/11/14 05/10/22 History insulin glargine 100 unit/mL 24 units subcut DAILY AM 01/11/14 05/10/22 History subcutaneous solution (Lantus U-100 Insulin) leflunomide 20 mg tablet (Arava) 20 mg PO DAILY 01/11/14 05/10/22 History methylprednisolone 4 mg tablet 4 mg PO DAILY 01/11/14 05/10/22 History zolpidem 10 mg tablet 10 mg PO HS 01/11/14 05/10/22 History aspirin 81 mg chewable tablet 81 mg PO DAILY 04/09/19 05/10/22 History insulin lispro 100 unit/mL See Rx Instructions .Route .COMPLEX 04/09/19 05/10/22 History subcutaneous pen (Humalog KwikPen (U-100) Insulin) multivitamin with minerals-iron 1 mg PO DAILY 04/09/19 05/26/21 History fumarate 9 mg iron/15 mL oral liquid (Multi Vitamin) carvedilol 12.5 mg tablet 12.5 mg PO BID 02/26/22 05/10/22 History ascorbic acid (vitamin C) 500 mg See Rx Instructions .Route .COMPLEX 05/10/22 05/10/22 History tablet cyclobenzaprine 10 mg tablet 10 mg PO TID PRN Muscle Spasm 05/10/22 05/10/22 History diphenhydramine HCl 25 mg capsule 50 mg PO Q6H PRN PRN Allergic 05/10/22 05/10/22 History (Benadryl) Reaction doxycycline hyclate 100 mg capsule 100 mg PO BID 05/10/22 05/10/22 History metoclopramide HCl 5 mg tablet 5 mg PO TID 05/10/22 05/10/22 History montelukast 10 mg tablet 10 mg PO DAILY AM 05/10/22 05/10/22 History ondansetron HCl 4 mg tablet 4 mg PO Q8H PRN PRN 05/10/22 05/10/22 History oxycodone 5 mg tablet 5 - 10 mg PO Q6H PRN PRN 05/10/22 05/10/22 History Exam Narrative Exam Narrative: GEN: Alert and oriented. Sitting up in bed, in pain at times but not toxic appearing. Pleasant and cooperative, gives linear coherent history. No acute distress at rest. HEENT: Head atraumatic. Conjunctiva clear, no icterus. PEERL, EOMI. no rhinorrhea. MMM, OP benign. Neck is supple with no masses or lymphadenopathy, trachea midline LUNGS: CTAB with mild increased effort notable when she moves. Speaking in full sentences. not wearing oxygen. CV: RRR with no murmurs, gallops, or rubs. ABD: +BS, soft, NT/ND EXT: no cyanosis, clubbing. Trace edema on right, 1+ on left, let leg significantly larger. She is holding left leg strait at knee, scar is c/d/i. Both legs tender to palpation. MSK: Barrett fingers swollen, mildly tender to MCPs. no nodular hypertrophy, no ulnar deviation. NEURO: CN 2-12 grossly intact. Able to move 4 extremities but movement of legs limited by MSK disease.. Normal speech and coordination SKIN: No rashes or open wounds, skin on left carrasco more pink. PSYCH: normal mood and affect, nl thought process Results Imaging CT scan - chest: report reviewed (IMPRESSION: 1. No evidence of pulmonary embolus to the segmental level. 2. No aneurysm of the aorta. 3. No dissection of the aorta. 4. Moderate left pleural effusion. Smaller right pleural effusion. 5. Consolidation in the left lower lobe may represent atelectasis or pneumonia..) Labs Result diagrams: 05/10/22 17:09 05/10/22 17:09 Labs: Laboratory Results - last 24 hr 05/10/22 05/10/22 05/10/22 16:45 17:09 17:09 WBC RBC Hgb Hct MCV MCH MCHC RDW Plt Count MPV Immature Gran % Neutrophils % Lymphocytes % Monocytes % Eosinophils % Basophils % Nucleated RBC % Absolute Neutrophils Absolute Lymphocytes Absolute Monocytes Absolute Eosinophils Absolute Basophils D-Dimer VBG pH VBG pCO2 VBG pO2 VBG HCO3 VBG Total CO2 VBG O2 Saturation VBG Base Excess VBG Lactate 1.9 H Sodium 136 Potassium 3.4 L Chloride 98 Carbon Dioxide 29.2 Anion Gap 8.8 BUN 9 Creatinine 0.9 Est GFR (CKD-EPI 2020) 70.95 Glucose 86 Calcium 8.7 Total Bilirubin 0.9 AST 23 ALT 17 Alkaline Phosphatase 158 H Troponin I NT-Pro-B Natriuret Pep 2723 H Total Protein 7.3 Albumin 3.2 L Procalcitonin TSH 2.33 Urine Color Urine Clarity Urine pH Ur Specific [place] Urine Protein Urine Ketones Urine Blood Urine Nitrite Urine Bilirubin Urine Urobilinogen Ur Leukocyte Esterase Urine RBC Urine WBC Ur Epithelial Cells Urine Crystals Urine Bacteria Urine Mucus Ur Culture Indicated? Urine Glucose COVID-19 Source Not Applicable SARS-CoV-2 (PCR) Positive A Influenza Type A (PCR) Negative Influenza Type B (PCR) Negative RSV (PCR) Negative 05/10/22 05/10/22 05/10/22 17:09 17:09 17:09 WBC 5.66 RBC 4.08 Hgb 11.3 Hct 35.2 L MCV 86 MCH 27.7 MCHC 32.1 RDW 14.8 H Plt Count 284 MPV 10.6 Immature Gran % 0.4 Neutrophils % 50.6 Lymphocytes % 30.6 Monocytes % 13.3 Eosinophils % 4.2 Basophils % 0.9 Nucleated RBC % 0.0 Absolute Neutrophils 2.87 Absolute Lymphocytes 1.73 Absolute Monocytes 0.75 Absolute Eosinophils 0.24 Absolute Basophils 0.05 D-Dimer VBG pH 7.37 VBG pCO2 51 VBG pO2 26 VBG HCO3 30 H VBG Total CO2 28 VBG O2 Saturation 42 VBG Base Excess 4 H VBG Lactate Sodium Potassium Chloride Carbon Dioxide Anion Gap BUN Creatinine Est GFR (CKD-EPI 2020) Glucose Calcium Total Bilirubin AST ALT Alkaline Phosphatase Troponin I NT-Pro-B Natriuret Pep Total Protein Albumin Procalcitonin < 0.1 TSH Urine Color Urine Clarity Urine pH Ur Specific [place] Urine Protein Urine Ketones Urine Blood Urine Nitrite Urine Bilirubin Urine Urobilinogen Ur Leukocyte Esterase Urine RBC Urine WBC Ur Epithelial Cells Urine Crystals Urine Bacteria Urine Mucus Ur Culture Indicated? Urine Glucose COVID-19 Source SARS-CoV-2 (PCR) Influenza Type A (PCR) Influenza Type B (PCR) RSV (PCR) 05/10/22 05/10/22 05/10/22 17:09 17:09 17:10 WBC RBC Hgb Hct MCV MCH MCHC RDW Plt Count MPV Immature Gran % Neutrophils % Lymphocytes % Monocytes % Eosinophils % Basophils % Nucleated RBC % Absolute Neutrophils Absolute Lymphocytes Absolute Monocytes Absolute Eosinophils Absolute Basophils D-Dimer 1263 H VBG pH VBG pCO2 VBG pO2 VBG HCO3 VBG Total CO2 VBG O2 Saturation VBG Base Excess VBG Lactate Sodium Potassium Chloride Carbon Dioxide Anion Gap BUN Creatinine Est GFR (CKD-EPI 2020) Glucose Calcium Total Bilirubin AST ALT Alkaline Phosphatase Troponin I < 50 NT-Pro-B Natriuret Pep Total Protein Albumin Procalcitonin TSH Urine Color Yellow Urine Clarity Clear Urine pH 7.5 Ur Specific [place] 1.025 Urine Protein 100 H Urine Ketones Negative Urine Blood Trace-lysed H Urine Nitrite Negative Urine Bilirubin Negative Urine Urobilinogen 0.2 Ur Leukocyte Esterase Negative Urine RBC 3-5 H Urine WBC Negative Ur Epithelial Cells Many Urine Crystals Negative Urine Bacteria Rare Urine Mucus Negative Ur Culture Indicated? No Urine Glucose Negative COVID-19 Source SARS-CoV-2 (PCR) Influenza Type A (PCR) Influenza Type B (PCR) RSV (PCR) 05/10/22 20:20 WBC RBC Hgb Hct MCV MCH MCHC RDW Plt Count MPV Immature Gran % Neutrophils % Lymphocytes % Monocytes % Eosinophils % Basophils % Nucleated RBC % Absolute Neutrophils Absolute Lymphocytes Absolute Monocytes Absolute Eosinophils Absolute Basophils D-Dimer VBG pH VBG pCO2 VBG pO2 VBG HCO3 VBG Total CO2 VBG O2 Saturation VBG Base Excess VBG Lactate Sodium Potassium Chloride Carbon Dioxide Anion Gap BUN Creatinine Est GFR (CKD-EPI 2020) Glucose Calcium Total Bilirubin AST ALT Alkaline Phosphatase Troponin I < 50 NT-Pro-B Natriuret Pep Total Protein Albumin Procalcitonin TSH Urine Color Urine Clarity Urine pH Ur Specific [place] Urine Protein Urine Ketones Urine Blood Urine Nitrite Urine Bilirubin Urine Urobilinogen Ur Leukocyte Esterase Urine RBC Urine WBC Ur Epithelial Cells Urine Crystals Urine Bacteria Urine Mucus Ur Culture Indicated? Urine Glucose COVID-19 Source SARS-CoV-2 (PCR) Influenza Type A (PCR) Influenza Type B (PCR) RSV (PCR) Last Vital Signs Temp 36.9 C 05/10/22 22:25 Pulse 83 05/11/22 00:04 Resp 16 05/10/22 22:25 BP 187/80 H 05/10/22 22:25 Pulse Ox 95 05/10/22 22:25
[2022-05-11] MEDS: oxyCODONE 5 MG TAB PO ×4 (01:17→19:29)
[2022-05-11] MEDS: Zolpidem 10 MG TAB PO ×2 (01:17→21:31)
[2022-05-11] MEDS: levoFLOXacin 750 MG/150 ML BAG 100 MG IVPB (02:55)
[2022-05-11 05:52] LABS: Hemoglobin A1C 6.1 % (<5.7)
[2022-05-11] MEDS: REMDESIVIR 200 MG in Normal Saline 250 ML 250 MG IVPB (06:10)
[2022-05-11] MEDS: Cyclobenzaprine 10 MG TAB PO ×3 (06:13→22:41)
[2022-05-11] MEDS: Normal Saline Flush 10 ML SYR IVP ×3 (08:04→19:27)
[2022-05-11] MEDS: Aspirin 81 MG CHEW PO (08:05)
[2022-05-11] MEDS: predniSONE 20 MG TAB 40 MG PO (08:05)
[2022-05-11] MEDS: Metoclopramide 10 MG TAB 5 MG PO ×3 (08:05→16:23)
[2022-05-11] MEDS: Multivitamin w/Minerals TAB 1 TAB PO (08:05)
[2022-05-11] MEDS: Calcium 600mg/Vit D 200U TAB 1 TAB PO ×2 (08:06→19:27)
[2022-05-11] MEDS: Acetaminophen 325 MG TAB PO ×2 (08:06→14:00)
[2022-05-11] MEDS: Esomeprazole 40 MG CAPCR PO (08:06)
[2022-05-11] MEDS: Folic Acid 1 MG TAB PO (08:06)
[2022-05-11] MEDS: Montelukast 10 MG TAB PO (08:06)
[2022-05-11] MEDS: Insulin Aspart 300 UNITS/3 ML PEN 8 UNITS SC ×3 (08:12→18:00)
[2022-05-11] MEDS: Insulin Glargine 300 UNITS/3 ML PEN 24 UNITS SC (09:57)
[2022-05-11] MEDS: Carvedilol 12.5 MG TAB PO ×2 (09:57→19:27)
[2022-05-11] MEDS: Enoxaparin 60 MG/0.6 ML SYR SC (11:12)
--- NOTE | 2022-05-11 11:16 | INITIAL_ITS ---
- If Service Date Differs Date of service: 05/11/22 Time of Service: 11:16 Care Management Initial Assess REASON FOR HOSPITALIZATION:: ESBL Bacteremia and UTI PAST MEDICAL HISTORY/PAST SURGICAL HISTORY:: Medical History (Updated 05/11/22 @ 01:46 by Jorge Graham). Bacteremia due to group B Streptococcus. Diabetes mellitus. Edema, peripheral. Psoriatic arthritis. Surgical History (Updated 05/11/22 @ 01:34 by Jorge Graham). History of left knee replacement. s/p revision for infected prosthesis PREVIOUS FUNCTIONAL STATUS/SOCIAL/FAMILY SUPPORTS:: Michelle lives in [place] with her [place]. 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 She uses a walker for ambulation but is otherwise independent. She receives no community services. CURRENT FUNCTIONAL STATUS:: Michelle is struggling with ongoing pain, but is up independently at this time. She remains on COVID precautions. Has patient been provided with info about the portal/API?: Yes Did the patient sign up for the portal?: No CODE STATUS:: Full Code INSURANCE COVERAGE / FINANCIAL ISSUES:: Medicare. [employer] Insurance CURRENT HOME/COMMUNITY SERVICES/EQUIPMENT:: Michelle has a walker for ambulation PRIMARY CARE PHYSICIAN:: Chito Brunner POTENTIAL DISCHARGE NEEDS:: Follow up with PCP and plan of care PATIENT/FAMILY EDUCATION NEEDS:: Review of discharge instructions, medications, limitations, activity, Ask Me Three TRANSPORTATION:: via private vehicle with family PLAN:: Michelle will likley be discharged home with no new services. She will follow up with her PCP and plan of care and transport with family. CM will continue to support Michelle and her discharge planning needs.
[2022-05-11] MEDS: Insulin Aspart 300 UNITS/3 ML PEN SC ×2 (12:10→18:00)
[2022-05-11] MEDS: Ipratropium/Albuterol 4 GM 120 PUFF INH IH ×3 (13:57→19:27)
[2022-05-11] MEDS: POTASSIUM CHLORIDE 20 MEQ/100 ML BAG 50 MEQ IVPB ×2 (14:45→18:00)
--- NOTE | 2022-05-11 15:02 | PGE_ITS ---
Date of Service Date of service: 05/11/22 Time of Service: 15:02 Assessment and Plan Assessment and plan (1) Bacteremia: Status: Acute Assessment and plan: blood cultures are still pending (2) Pneumonia: Status: Acute Assessment and plan: The patient's primary reason for admission is her initial respiratory distress in the ED and new focal pneumonia on her chest CT. BNaP high but clinically not CHF. Given these factors and her immune suppression, she was treated for bacterial pneumonia. She does not have chronic lung disease to suggest high risk for pseudomonas, so given this and her PCN allergy without clear history of cephalosporin tolerance she was admitted on levofloxacin, (She was given vanco/aztreonam/doxy in the ED) blood cultures are still pending clinically improving (3) COVID: Status: Acute Assessment and plan: She was started on remdesavir treatment dose, prednisone to avoid adrenal insufficiency with acute illness. She was given MAB in the ED as well. no oxygen requirements. (4) Elevated blood pressure reading: Status: Acute Assessment and plan: She has been in pain, will resume outpatient medications and follow. (5) Pain of left calf: Status: Acute Assessment and plan: left leg swelling not new, but given increased pain and very high risk, doppler u/s for DVT when available. (6) Chronic pain: Status: Chronic Assessment and plan: Continue outpatient pain regimen (7) DVT prophylaxis: Status: Acute Assessment and plan: LMWH at preventive dose pending LE u/s (8) Discharge planning issues: Status: Acute Assessment and plan: will discharge to home with no services once medically stable. discussed with Dr Reagan Subjective Subjective Patient reports: no new complaints, feels better, tolerating liquids well and tolerating a regular diet Exam Const General: cooperative, healthy appearing and comfortable Resp Effort & Inspection: normal respiratory effort and able to speak in complete sentences Cardio Other: pink warm dry in no acute distress, well perfused Skin General skin exam: no rashes or lesions noted (on skin visualized) Neuro General: moves all extremities Objective Last Vital Signs Temp 37.0 C 05/11/22 08:02 Pulse 99 H 05/11/22 08:02 Resp 16 05/11/22 08:02 BP 168/89 H 05/11/22 08:02 Pulse Ox 93 05/11/22 08:02 Laboratory Results - last 24 hr 05/10/22 05/10/22 05/10/22 05:35 16:45 17:09 WBC RBC Hgb Hct MCV MCH MCHC RDW Plt Count MPV Immature Gran % Neutrophils % Lymphocytes % Monocytes % Eosinophils % Basophils % Nucleated RBC % Absolute Neutrophils Absolute Lymphocytes Absolute Monocytes Absolute Eosinophils Absolute Basophils D-Dimer VBG pH VBG pCO2 VBG pO2 VBG HCO3 VBG Total CO2 VBG O2 Saturation VBG Base Excess VBG Lactate Sodium 136 Potassium 3.4 L Chloride 98 Carbon Dioxide 29.2 Anion Gap 8.8 BUN 9 Creatinine 0.9 Est GFR (CKD-EPI 2020) 70.95 Glucose 86 Hemoglobin A1c 6.1 H Calcium 8.7 Total Bilirubin 0.9 AST 23 ALT 17 Alkaline Phosphatase 158 H Troponin I NT-Pro-B Natriuret Pep 2723 H Total Protein 7.3 Albumin 3.2 L Procalcitonin TSH 2.33 Urine Color Urine Clarity Urine pH Ur Specific [place] Urine Protein Urine Ketones Urine Blood Urine Nitrite Urine Bilirubin Urine Urobilinogen Ur Leukocyte Esterase Urine RBC Urine WBC Ur Epithelial Cells Urine Crystals Urine Bacteria Urine Mucus Ur Culture Indicated? Urine Glucose COVID-19 Source Not Applicable SARS-CoV-2 (PCR) Positive A Influenza Type A (PCR) Negative Influenza Type B (PCR) Negative RSV (PCR) Negative 05/10/22 05/10/22 05/10/22 17:09 17:09 17:09 WBC 5.66 RBC 4.08 Hgb 11.3 Hct 35.2 L MCV 86 MCH 27.7 MCHC 32.1 RDW 14.8 H Plt Count 284 MPV 10.6 Immature Gran % 0.4 Neutrophils % 50.6 Lymphocytes % 30.6 Monocytes % 13.3 Eosinophils % 4.2 Basophils % 0.9 Nucleated RBC % 0.0 Absolute Neutrophils 2.87 Absolute Lymphocytes 1.73 Absolute Monocytes 0.75 Absolute Eosinophils 0.24 Absolute Basophils 0.05 D-Dimer VBG pH 7.37 VBG pCO2 51 VBG pO2 26 VBG HCO3 30 H VBG Total CO2 28 VBG O2 Saturation 42 VBG Base Excess 4 H VBG Lactate 1.9 H Sodium Potassium Chloride Carbon Dioxide Anion Gap BUN Creatinine Est GFR (CKD-EPI 2020) Glucose Hemoglobin A1c Calcium Total Bilirubin AST ALT Alkaline Phosphatase Troponin I NT-Pro-B Natriuret Pep Total Protein Albumin Procalcitonin TSH Urine Color Urine Clarity Urine pH Ur Specific [place] Urine Protein Urine Ketones Urine Blood Urine Nitrite Urine Bilirubin Urine Urobilinogen Ur Leukocyte Esterase Urine RBC Urine WBC Ur Epithelial Cells Urine Crystals Urine Bacteria Urine Mucus Ur Culture Indicated? Urine Glucose COVID-19 Source SARS-CoV-2 (PCR) Influenza Type A (PCR) Influenza Type B (PCR) RSV (PCR) 05/10/22 05/10/22 05/10/22 17:09 17:09 17:09 WBC RBC Hgb Hct MCV MCH MCHC RDW Plt Count MPV Immature Gran % Neutrophils % Lymphocytes % Monocytes % Eosinophils % Basophils % Nucleated RBC % Absolute Neutrophils Absolute Lymphocytes Absolute Monocytes Absolute Eosinophils Absolute Basophils D-Dimer 1263 H VBG pH VBG pCO2 VBG pO2 VBG HCO3 VBG Total CO2 VBG O2 Saturation VBG Base Excess VBG Lactate Sodium Potassium Chloride Carbon Dioxide Anion Gap BUN Creatinine Est GFR (CKD-EPI 2020) Glucose Hemoglobin A1c Calcium Total Bilirubin AST ALT Alkaline Phosphatase Troponin I < 50 NT-Pro-B Natriuret Pep Total Protein Albumin Procalcitonin < 0.1 TSH Urine Color Urine Clarity Urine pH Ur Specific [place] Urine Protein Urine Ketones Urine Blood Urine Nitrite Urine Bilirubin Urine Urobilinogen Ur Leukocyte Esterase Urine RBC Urine WBC Ur Epithelial Cells Urine Crystals Urine Bacteria Urine Mucus Ur Culture Indicated? Urine Glucose COVID-19 Source SARS-CoV-2 (PCR) Influenza Type A (PCR) Influenza Type B (PCR) RSV (PCR) 05/10/22 05/10/22 17:10 20:20 WBC RBC Hgb Hct MCV MCH MCHC RDW Plt Count MPV Immature Gran % Neutrophils % Lymphocytes % Monocytes % Eosinophils % Basophils % Nucleated RBC % Absolute Neutrophils Absolute Lymphocytes Absolute Monocytes Absolute Eosinophils Absolute Basophils D-Dimer VBG pH VBG pCO2 VBG pO2 VBG HCO3 VBG Total CO2 VBG O2 Saturation VBG Base Excess VBG Lactate Sodium Potassium Chloride Carbon Dioxide Anion Gap BUN Creatinine Est GFR (CKD-EPI 2020) Glucose Hemoglobin A1c Calcium Total Bilirubin AST ALT Alkaline Phosphatase Troponin I < 50 NT-Pro-B Natriuret Pep Total Protein Albumin Procalcitonin TSH Urine Color Yellow Urine Clarity Clear Urine pH 7.5 Ur Specific [place] 1.025 Urine Protein 100 H Urine Ketones Negative Urine Blood Trace-lysed H Urine Nitrite Negative Urine Bilirubin Negative Urine Urobilinogen 0.2 Ur Leukocyte Esterase Negative Urine RBC 3-5 H Urine WBC Negative Ur Epithelial Cells Many Urine Crystals Negative Urine Bacteria Rare Urine Mucus Negative Ur Culture Indicated? No Urine Glucose Negative COVID-19 Source SARS-CoV-2 (PCR) Influenza Type A (PCR) Influenza Type B (PCR) RSV (PCR)
[2022-05-11] MEDS: Enoxaparin 100 MG/ML SYR SC (22:41)
[2022-05-12] VITALS (8 sets, daily range): BP systolic 138–187; BP diastolic 70–81; PULSE 68–73; RESP 16; TEMP 36.4–36.7; O2SAT 95–97
[2022-05-12] MEDS: oxyCODONE 5 MG TAB PO ×3 (04:26→21:18)
[2022-05-12] MEDS: REMDESIVIR 100 MG in Normal Saline 250 ML 250 MG IVPB (05:25)
[2022-05-12] MEDS: Esomeprazole 40 MG CAPCR PO (07:26)
[2022-05-12] MEDS: Metoclopramide 10 MG TAB 5 MG PO ×3 (07:26→16:59)
[2022-05-12 08:10] LABS: Lab Add On Test COMPLETED
[2022-05-12] MEDS: Ipratropium/Albuterol 4 GM 120 PUFF INH IH ×4 (08:44→21:18)
[2022-05-12] MEDS: Normal Saline Flush 10 ML SYR IVP ×2 (09:05→21:19)
[2022-05-12] MEDS: Insulin Aspart 300 UNITS/3 ML PEN SC ×3 (09:06→17:00)
[2022-05-12] MEDS: Insulin Glargine 300 UNITS/3 ML PEN 24 UNITS SC (09:06)
[2022-05-12] MEDS: Insulin Aspart 300 UNITS/3 ML PEN 8 UNITS SC ×3 (09:06→17:01)
[2022-05-12] MEDS: Aspirin 81 MG CHEW PO (09:07)
[2022-05-12] MEDS: levoFLOXacin 500 MG, levoFLOXacin 250 MG 750 MG PO (09:07)
[2022-05-12] MEDS: Calcium 600mg/Vit D 200U TAB 1 TAB PO ×2 (09:07→21:18)
[2022-05-12] MEDS: Acetaminophen 325 MG TAB PO (09:07)
[2022-05-12] MEDS: Cyclobenzaprine 10 MG TAB PO ×2 (09:07→21:29)
[2022-05-12] MEDS: Folic Acid 1 MG TAB PO (09:08)
[2022-05-12] MEDS: Carvedilol 12.5 MG TAB PO ×2 (09:08→21:19)
[2022-05-12] MEDS: Montelukast 10 MG TAB PO (09:08)
[2022-05-12] MEDS: predniSONE 20 MG TAB 40 MG PO (09:08)
[2022-05-12] MEDS: Multivitamin w/Minerals TAB 1 TAB PO (09:08)
[2022-05-12] MEDS: Enoxaparin 100 MG/ML SYR SC ×2 (09:15→21:29)
[2022-05-12] MEDS: VANCOMYCIN/WATER (PEG) 1.5 GM/300 ML BAG IVPB (09:15)
[2022-05-12 11:20] LABS: Abs Immature Grans 0.02 10^3/uL (0.0-0.06); Absolute Basophil Count 0.03 10^3/uL (0.0-0.2); Absolute Eosinophil Count 0.16 10^3/uL (0.0-0.7); Absolute Lymphocyte Count 1.52 10^3/uL (1.2-3.4); Absolute Monocyte Count 0.43 10^3/uL (0.1-0.8); Absolute Neutrophil Count 2.84 10^3/uL (1.2-6.7); Basophils % 0.6; Eosinophils % 3.2; HCT 28.9 % (36.0-46.0); Immature Grans % 0.4; Lymphocytes % 30.4; MCH 27.2 pg (27.0-33.0); MCHC 31.1 % (32.0-36.0); MCV 87 fL (80-95); MPV 10.6 fL (8.0-11.0); Monocytes % 8.6; Neutrophils % 56.8; Platelet Count 252 10^3/uL (130-400); RBC 3.31 10^6/uL (3.93-5.22); RDW 14.6 % (11.7-14.6); RDW-SD 47.6 fL
[2022-05-12 11:48] LABS: ALT 12 U/L (14-59); AST 16 U/L (15-37); Albumin 2.7 g/dL (3.4-5.0); Alkaline Phosphatase 118 U/L (46-116); Anion Gap 10.2 mmol/L (3-11); BUN 20 mg/dL (7-18); Bilirubin, Total 0.5 mg/dL (0.2-1.0); C-Reactive Protein 5.58 mg/dL (0.0-0.3); CO2 25.8 mmol/L (21.0-32.0); CREATININE 1.4 mg/dL (0.55-1.02); Chloride 102 mmol/L (98-107); Creatine Kinase 18 U/L (26-192); Estimated GFR 41.75 (mL/min/1.73m2); Glucose 181 mg/dL (74-106); LDH 191 U/L (81-234); Magnesium 1.5 mg/dL (1.8-2.4); Potassium 3.9 mmol/L (3.5-5.1); Sodium 138 mmol/L (136-145); Total Protein 6.1 g/dL (6.4-8.2)
[2022-05-12 11:49] LABS: INR 1.3 (0.9-1.1); PTT Activated 40.1 sec (21.0-27.5); Prothrombin Time 12.6 sec (9.3-11.0)
[2022-05-12 12:15] LABS: Ferritin 191 ng/mL (8-252)
[2022-05-12 12:31] LABS: Procalcitonin < 0.1 ng/mL
--- NOTE | 2022-05-12 15:34 | W.PM.PROGNOT ---
Date of Service Date of service: 05/12/22 Time of Service: 15:34 Assessment and Plan Assessment and plan (1) Bacteremia: Status: Acute Assessment and plan: blood cultures are still pending but one anaerobic tube was positive for gram positive cocci in clusters, possibly a contaminant but Vanco was restarted. awaiting final report (2) Pneumonia: Status: Acute Assessment and plan: The patient's primary reason for admission is her initial respiratory distress in the ED and new focal pneumonia on her chest CT. BNaP high but clinically not CHF. Given these factors and her immune suppression, she was treated for bacterial pneumonia. She does not have chronic lung disease to suggest high risk for pseudomonas, so given this and her PCN allergy without clear history of cephalosporin tolerance she was admitted on levofloxacin, (She was given vanco/aztreonam/doxy in the ED) blood cultures are still pending but one anaerobic tube was positive for gram positive cocci in clusters, possibly a contaminant but Vanco was restarted. her procal was negative, ? need for ongoing antibiotics if blood cultures indeed negative. clinically improving and difficulty drawing labs so will continue current treatment with no am labs tomorrow unless clinical picture changes. would appreciate pulmonary consultation (3) COVID: Status: Acute Assessment and plan: She was started on remdesavir treatment dose, but not dexamethasone. Because she came in on methylprednisolone she was put on prednisone to avoid adrenal insufficiency with acute illness. She was given MAB in the ED as well. no oxygen requirements. would appreciate pulmonary consultation (4) Elevated blood pressure reading: Status: Acute Assessment and plan: She has been in pain, will resume outpatient medications and follow. (5) Pain of left calf: Status: Acute Assessment and plan: left leg swelling not new, but given increased pain and very high risk, doppler u/s for DVT when available. (6) Diabetes mellitus: Assessment and plan: A1c 6.1. 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 She was on humira in past but stopped after bouts of sepsis, now on the DMARD leflunomide with folate, continue. (8) Chronic pain: Status: Chronic Assessment and plan: Continue outpatient pain regimen (9) DVT prophylaxis: Status: Acute Assessment and plan: LMWH at preventive dose pending LE u/s (10) Discharge planning issues: Status: Acute Assessment and plan: will discharge to home with no services once medically stable. discussed with DR Reagan Subjective Subjective Patient reports: no new complaints, feels better, tolerating liquids well and afebrile; denies shortness of breath Exam Resp Effort & Inspection: normal respiratory effort and able to speak in complete sentences Cardio Other: pink warm dry in no acute distress, well perfused Skin General skin exam: no rashes or lesions noted (on skin visualized) Neuro General: moves all extremities Objective Last Vital Signs Temp 36.7 C 05/12/22 15:02 Pulse 72 05/12/22 15:02 Resp 16 05/12/22 15:02 BP 170/81 H 05/12/22 15:02 Pulse Ox 97 05/12/22 15:24 Laboratory Results - last 24 hr 05/12/22 05/12/22 05/12/22 08:10 11:00 11:00 WBC 5.00 RBC 3.31 L Hgb 9.0 L D Hct 28.9 L MCV 87 MCH 27.2 MCHC 31.1 L RDW 14.6 Plt Count 252 MPV 10.6 Immature Gran % 0.4 Neutrophils % 56.8 Lymphocytes % 30.4 Monocytes % 8.6 Eosinophils % 3.2 Basophils % 0.6 Nucleated RBC % 0.0 Absolute Neutrophils 2.84 Absolute Lymphocytes 1.52 Absolute Monocytes 0.43 Absolute Eosinophils 0.16 Absolute Basophils 0.03 PT INR APTT Sodium 138 Potassium 3.9 Chloride 102 Carbon Dioxide 25.8 Anion Gap 10.2 BUN 20 H Creatinine 1.4 H Est GFR (CKD-EPI 2020) 41.75 Glucose 181 H Calcium 8.0 L Magnesium 1.5 L Ferritin 191 Total Bilirubin 0.5 AST 16 ALT 12 L Alkaline Phosphatase 118 H Lactate Dehydrogenase 191 Creatine Kinase 18 L C-Reactive Protein 5.58 H Total Protein 6.1 L Albumin 2.7 L Procalcitonin Add-On Test Request COMPLETED 05/12/22 05/12/22 11:00 11:00 WBC RBC Hgb Hct MCV MCH MCHC RDW Plt Count MPV Immature Gran % Neutrophils % Lymphocytes % Monocytes % Eosinophils % Basophils % Nucleated RBC % Absolute Neutrophils Absolute Lymphocytes Absolute Monocytes Absolute Eosinophils Absolute Basophils PT 12.6 H INR 1.3 H APTT 40.1 H Sodium Potassium Chloride Carbon Dioxide Anion Gap BUN Creatinine Est GFR (CKD-EPI 2020) Glucose Calcium Magnesium Ferritin Total Bilirubin AST ALT Alkaline Phosphatase Lactate Dehydrogenase Creatine Kinase C-Reactive Protein Total Protein Albumin Procalcitonin < 0.1 Add-On Test Request
[2022-05-12] MEDS: diphenhydrAMINE 25 MG CAP 50 MG PO (19:01)
[2022-05-12] MEDS: Zolpidem 10 MG TAB PO (21:29)
--- NOTE | 2022-05-13 | DI.US_ITS ---
Exam(s) US LOWER EXTREMITY VENOUS LT EXAM: US LOWER EXTREMITY VENOUS LT CLINICAL HISTORY: swelling, pain in setting of +COVID. TECHNIQUE: Lower extremity venous ultrasound performed using grayscale, color-flow, and spectral Do ppler analysis. COMPARISON: No exams were available for comparison FINDINGS: The common femoral, femoral and popliteal veins demonstrate normal compressibility, augmentation, and color Doppler. The posterior tibial veins are patent. No saphenous vein thrombosis or other superfi cial venous thrombosis is seen. No hematoma or Cyr's cyst is seen. There is edema in the subcutan eous fat of the lower leg. IMPRESSION: Lower leg edema.. No evidence of DVT. DATA REPOSITORY:
[2022-05-13] MEDS: Normal Saline Flush 10 ML SYR IVP ×2 (03:46→07:52)
[2022-05-13] MEDS: oxyCODONE 5 MG TAB PO ×2 (03:46→10:11)
[2022-05-13] MEDS: VANCOMYCIN/WATER (PEG) 1 GM/200 ML BAG IVPB (03:46)
[2022-05-13 05:20] VITALS: RESP 16; O2SAT 97
[2022-05-13] MEDS: REMDESIVIR 100 MG in Normal Saline 250 ML 250 MG IVPB (05:36)
[2022-05-13] MEDS: Normal Saline 500 ML 30 ML IV (05:36)
[2022-05-13] MEDS: Cyclobenzaprine 10 MG TAB PO (05:36)
[2022-05-13 07:30] VITALS: O2SAT 95
[2022-05-13 07:48] VITALS: BP 162/74; PULSE 73; RESP 16; TEMP 36.5; O2SAT 95
[2022-05-13] MEDS: Insulin Aspart 300 UNITS/3 ML PEN SC ×2 (07:52→12:00)
[2022-05-13] MEDS: Esomeprazole 40 MG CAPCR PO (07:53)
[2022-05-13] MEDS: Insulin Aspart 300 UNITS/3 ML PEN 8 UNITS SC ×2 (07:53→12:00)
[2022-05-13] MEDS: Metoclopramide 10 MG TAB 5 MG PO ×2 (07:53→12:00)
[2022-05-13] MEDS: Insulin Glargine 300 UNITS/3 ML PEN 24 UNITS SC (07:53)
[2022-05-13] MEDS: predniSONE 20 MG TAB 40 MG PO (07:54)
[2022-05-13] MEDS: Folic Acid 1 MG TAB PO (07:54)
[2022-05-13] MEDS: Multivitamin w/Minerals TAB 1 TAB PO (07:54)
[2022-05-13] MEDS: Aspirin 81 MG CHEW PO (07:54)
[2022-05-13] MEDS: levoFLOXacin 500 MG, levoFLOXacin 250 MG 750 MG PO (07:54)
[2022-05-13] MEDS: Montelukast 10 MG TAB PO (07:55)
[2022-05-13] MEDS: Carvedilol 12.5 MG TAB PO (07:55)
[2022-05-13] MEDS: Calcium 600mg/Vit D 200U TAB 1 TAB PO (07:55)
[2022-05-13] MEDS: Acetaminophen 325 MG TAB PO (07:55)
[2022-05-13] MEDS: Ipratropium/Albuterol 4 GM 120 PUFF INH IH ×2 (09:06→12:32)
[2022-05-13] MEDS: Enoxaparin 100 MG/ML SYR SC (10:11)
--- NOTE | 2022-05-13 10:14 | W.INDIABCONS ---
Date of service: 05/13/22 Time of Service: 10:14 Diabetes Inpatient Consult Reason for Visit: DM DESCRIPTION/ASSESSMENT: Michelle was admitted with Khurram PNA. DM2 well controlled with 24 u lantus q AM, and lispro at meals. Most recent A1C: 6.1%. Following diabetic diet and meeting macronutrient needs at this time. INTERVENTION: No education needed at this time PLAN: will monitor po intake, labs, weight Time Spent in Nutritional Counseling and Treatment: 0
--- NOTE | 2022-05-13 10:47 | DSE_ITS ---
Date of service: 05/13/22 Time of Service: 10:47 DS: Diagnosis Discharge Diagnosis (1) Bacteremia: Status: Acute (2) Pneumonia: Status: Acute (3) COVID: Status: Acute (4) Elevated blood pressure reading: Status: Resolved (5) Pain of left calf: Status: Resolved (6) Chronic pain: Status: Chronic Discharge Plan Disposition Patient Disposition: HOME Condition: Good Discharge Details Reason For Visit: COVID Pneumonia Admit Date/Time: 05/10/22 20:39 Admit Provider: Jorge Graham Attending Provider: Jorge Graham Primary Care Provider: Chito Brunner Hospital Course Hospital Course: This is a 66 yo female patient with a past medical history of psoriatic arthritis, chronic pain, type 2 diabetes, BMI of 36 who initially presented to the [facility] emergency room just after midnight on 05/06/22 with fevers and chills that started 05/05/12.? She was concerned that her symptoms were similar to a previous episode of sepsis; she was diagnosed with COVID.? At that time she had a negative CT of the chest.? She declined MAB treatment at that time.? She did not take outpatient oral treatment.?She was discharged to home.? Since then, she experienced gradually increasing shortness and heaviness with her breath along with ongoing fevers and chills.? She developed a non-productive cough. ?She complained of some increased body aches along with her chronic pain.? She returned for re-evaluation in the ED.?The patient's primary reason for admission was her initial respiratory distress in the ED and new focal pneumonia on her chest CT.? BNaP was originally high but clinically not CHF.? Given these factors and her immune suppression, she was placed on observation status and treated for bacterial pneumonia, though her pneumonia severity was not high.? She does not have chronic lung disease to suggest high risk for pseudomonas and her PCN allergy without clear history of cephalosporin tolerance the vancomycin, doxycycline and aztreonam was stopped and she was treated with levofloxacin.? Her blood cultures were negative at 72 hours.? Her MRSA screen was negative. She was started on remdesavir treatment dose, but not dexamethasone secondary to her coming in on methylprednisolone, she was put on prednisone to avoid adrenal insufficiency with acute illness. She was also given MAB in the ED. She was afebrile, vital signs stable throughout her stay.? She was discharged home on hospital day three.? She reported feeling better and stronger.? She was educated regarding Covid isolation. She was started on benzonate for cough and continued on Levofloxacin for three more days.? She did not need any services. Discussed with Dr Reagan Home Meds and New Rx's Prescriptions: New albuterol sulfate [Ventolin HFA] 90 mcg/actuation Hfa Aerosol Inhaler 2 puff inhalation Q4H PRN PRNQty: 8.5 0RF benzonatate 100 mg Capsule 100 mg PO TID PRN PRN (Reason: Cough) Qty: 20 0RF Combivent Respimat 20-100 mcg/actuation Mist 1 puff inhalation QID Qty: 4 0RF prednisone 20 mg Tablet 40 mg PO DAILY Qty: 6 0RF levofloxacin 750 mg Tablet 750 mg PO QAM Qty: 3 0RF Continued insulin glargine [Lantus U-100 Insulin] 100 UNIT/ML solution 24 units Sub-Q DAILY AM albuterol sulfate 3 ML solution for nebulization 1 unit Inhalation QID PRN Label Comments: 02/10/14- pt has not used for months, per pt methylprednisolone 4 MG tablet 4 mg PO DAILY leflunomide [Arava] 20 MG tablet 20 mg PO DAILY esomeprazole magnesium [Nexium] 40 MG capsule,delayed release(DR/EC) 40 mg PO DAILY folic acid 1 MG tablet 1 mg PO DAILY zolpidem 10 MG tablet 10 mg PO HS calcium carbonate-vitamin D3 [Calcium 600 + D(3)] 1 EACH tablet 1 tab PO BID carvedilol 12.5 mg tablet 12.5 mg PO BID Label Comments: Take 1 tablet by mouth 2 times daily with meals. cyclobenzaprine 10 mg tablet 10 mg PO TID PRN (Reason: Muscle Spasm) Rx Instructions: Pt reports using this q-4-6h doxycycline hyclate 100 mg capsule 100 mg PO BID Rx Instructions: Pt reports supposed to take through the end of May for leg surgery ondansetron HCl 4 mg tablet 4 mg PO Q8H PRN PRN metoclopramide HCl 5 mg tablet 5 mg PO TID Rx Instructions: 30 minutes before meals; 30 day supply filled on 05/07/22, pt unsure if she takes this montelukast 10 mg tablet 10 mg PO DAILY AM Label Comments: TAKE ONE TABLET BY MOUTH ONE TIME DAILY Rx Instructions: Pt reports taking in the am oxycodone 5 mg tablet 5 - 10 mg PO Q6H PRN PRN Label Comments: As Needed for pain for 7 days; 1 - 2 tabs orally every 6 hours PRN; ascorbic acid (vitamin C) 500 mg Tablet See Rx Instructions .ROUTE .COMPLEX Rx Instructions: 1 dose po qday; pt unable to remember strength of OTC she uses diphenhydramine HCl [Benadryl] 25 mg Capsule 50 mg PO Q6H PRN PRN (Reason: Allergic Reaction) Rx Instructions: Pt reports taking 50 mg po c each opioid dose aspirin 81 mg Tablet,Chewable 81 mg PO DAILY Multi Vitamin 9 mg iron/15 mL Liquid 1 mg PO DAILY insulin lispro [Humalog KwikPen Insulin] 100 unit/mL Insulin Pen See Rx Instructions .ROUTE .COMPLEX Rx Instructions: Original sig- 10 units+SS sc tid with meals. Pt often skips breakfast and lunch dosing due to BG in range, normally injects 14 units sc with evening meal Discharge Instructions Instructions: Benzonatate (By mouth), Levofloxacin (By mouth), Shoulder Pain (GEN), COVID-19 (Coronavirus Disease 2019) (DC) Additional Instructions: Follow up with your PCP regarding your shoulder pain. Continue to isolate until 05/15, then wear a mask for at least 5 more days, and continue until symptoms have resolved. Tylenol for pain and fluids. Benzonate up to three times a day for continued cough. Continue Levofloxacin for three more days. Drink lots of fluid. Stand Alone Forms: Nursing Discharge Form Referrals: Santos Arana MD [ NON-[facility] STAFF PHYSICIAN] - 05/22/22 11:15 am (office is at [facility].) Activity:: Activity as Tolerated Equipment/Supplies:: No Equipment Needed Diet:: As Tolerated Discharge Orders Discharge Orders: Discharge Order (Routine); Ordered 05/13/22 Ordered By: Irena Durán Discharge Data Discharge Date/Time-TO BE ENTERED AT DEPARTURE: 05/13/22 13:33 DS: Summary Time Spent with Patient providing and/or coordinating discharge services: Less than 30 minutes Status at Discharge Functional status at discharge: independent ambulation Overall status at discharge: patient is progressing back to baseline Mental Status: mental status grossly normal Speech and Movement: speech and movement normal Mood: congruent mood Affect: normal affect Exam Psych Mental Status: mental status grossly normal Speech and Movement: speech and movement normal Mood: congruent mood Affect: normal affect DS: Data Vitals/I&O Vitals and I&O: Vital Signs Temperature 36.5 C 05/13/22 07:48 Temperature Source Tympanic 05/13/22 07:48 Pulse 73 05/13/22 07:48 Pulse Rhythm Regular 05/13/22 07:30 Pulse 84 05/10/22 21:40 Respiratory Rate 16 05/13/22 07:48 Respiratory Effort Non-Labored 05/13/22 07:30 Respiratory Depth Normal 05/13/22 07:30 Respiratory Pattern Normal 05/13/22 07:30 Blood Pressure 162/74 H 05/13/22 07:48 Blood Pressure Mean 100 05/10/22 19:31 Blood Pressure Position Sitting 05/10/22 15:30 Pulse Oximetry 95 05/13/22 07:48 Oxygen Delivery Method Room Air 05/13/22 07:48 Oxygen Flow Rate 0 05/13/22 07:48 Pain Level 7 05/13/22 10:11 Intake & Output 05/12/22 05/12/22 05/13/22 11:59 23:59 11:59 Intake Total 790 / 1140 350 / 1140 537.5 / 537.5 Output Total 300 / 2450 2150 / 2450 1800 / 1800 Balance 490 / -1310 -1800 / -1310 -1262.5 / -1262.5 Weight 96.1 kg 96 kg Intake: IV 550 / 560 10 / 560 537.5 / 537.5 Oral 240 / 580 340 / 580 Output: Urine 300 / 2450 2150 / 2450 1800 / 1800 Other: Urine Color Yellow Pale Yellow Yellow Urine Appearance Clear Clear Clear Urine Odor Normal None Comment Patient incontinent of urine at this time. 3 voids Stool Size Moderate Stool Characteristics Liquid Voiding Methods Bedside Commode Bedside Commode Bedside Commode Data Completed and Pending Labs on day of discharge: Labs from last 24 hours 05/12/22 05/12/22 05/12/22 12:11 11:00 11:00 WBC RBC Hgb Hct MCV MCH MCHC RDW Plt Count MPV Immature Gran % Neutrophils % Lymphocytes % Monocytes % Eosinophils % Basophils % Nucleated RBC % Absolute Neutrophils Absolute Lymphocytes Absolute Monocytes Absolute Eosinophils Absolute Basophils PT 12.6 H INR 1.3 H APTT 40.1 H Sodium Potassium Chloride Carbon Dioxide Anion Gap BUN Creatinine Est GFR (CKD-EPI 2020) Glucose Calcium Magnesium Ferritin Total Bilirubin AST ALT Alkaline Phosphatase Lactate Dehydrogenase Creatine Kinase C-Reactive Protein Total Protein Albumin Procalcitonin < 0.1 Hep Bs Antigen Hep Bs Antibody Hep Bs Antibody, Quant Hep B Core Total Ab HIV 1&2 Ag/Ab, 4th Gen Urine Legionella Ag Pending Ur Strep pneumoniae Ag Pending 05/12/22 05/12/22 05/12/22 11:00 11:00 11:00 WBC RBC Hgb Hct MCV MCH MCHC RDW Plt Count MPV Immature Gran % Neutrophils % Lymphocytes % Monocytes % Eosinophils % Basophils % Nucleated RBC % Absolute Neutrophils Absolute Lymphocytes Absolute Monocytes Absolute Eosinophils Absolute Basophils PT INR APTT Sodium 138 Potassium 3.9 Chloride 102 Carbon Dioxide 25.8 Anion Gap 10.2 BUN 20 H Creatinine 1.4 H Est GFR (CKD-EPI 2020) 41.75 Glucose 181 H Calcium 8.0 L Magnesium 1.5 L Ferritin 191 Total Bilirubin 0.5 AST 16 ALT 12 L Alkaline Phosphatase 118 H Lactate Dehydrogenase 191 Creatine Kinase 18 L C-Reactive Protein 5.58 H Total Protein 6.1 L Albumin 2.7 L Procalcitonin Hep Bs Antigen Pending Hep Bs Antibody Pending Hep Bs Antibody, Quant Pending Hep B Core Total Ab Pending HIV 1&2 Ag/Ab, 4th Gen Pending Urine Legionella Ag Ur Strep pneumoniae Ag 05/12/22 11:00 WBC 5.00 RBC 3.31 L Hgb 9.0 L D Hct 28.9 L MCV 87 MCH 27.2 MCHC 31.1 L RDW 14.6 Plt Count 252 MPV 10.6 Immature Gran % 0.4 Neutrophils % 56.8 Lymphocytes % 30.4 Monocytes % 8.6 Eosinophils % 3.2 Basophils % 0.6 Nucleated RBC % 0.0 Absolute Neutrophils 2.84 Absolute Lymphocytes 1.52 Absolute Monocytes 0.43 Absolute Eosinophils 0.16 Absolute Basophils 0.03 PT INR APTT Sodium Potassium Chloride Carbon Dioxide Anion Gap BUN Creatinine Est GFR (CKD-EPI 2020) Glucose Calcium Magnesium Ferritin Total Bilirubin AST ALT Alkaline Phosphatase Lactate Dehydrogenase Creatine Kinase C-Reactive Protein Total Protein Albumin Procalcitonin Hep Bs Antigen Hep Bs Antibody Hep Bs Antibody, Quant Hep B Core Total Ab HIV 1&2 Ag/Ab, 4th Gen Urine Legionella Ag Ur Strep pneumoniae Ag 05/12/22 09:00 Nose MRSA Screen - Pending Preliminary micro results at discharge 05/10/22 15:51 Blood Culture - Preliminary Blood Staph Sp., Not Aureus 05/10/22 17:09 Blood Culture - Preliminary Blood NO GROWTH 48 HOURS 05/12/22 09:00 MRSA Screen - Pending Nose PFSH All Active Problems (Updated 05/14/22 @ 00:08 by SERENITY HAILE) Bacteremia (Acute) Chronic pain (Chronic) Pneumonia (Acute) COVID (Acute) Hypomagnesemia (Acute) Nausea & vomiting (Acute) Cellulitis and abscess of foot (Acute) Contusion of right foot (Acute) Sepsis (Acute) Bone infection of left foot (Acute) Status post total left knee replacement (Acute) Pain (Acute) Lower extremity pain (Acute) Medical History (Updated 05/14/22 @ 00:08 by SERENITY HAILE) Bacteremia due to group B Streptococcus Diabetes mellitus Edema, peripheral Psoriatic arthritis Surgical History (Updated 05/11/22 @ 01:34 by Jorge Graham) 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
--- NOTE | 2022-05-13 12:53 | PDOC.CMDIS ---
- If Service Date Differs Date of service: 05/13/22 Time of Service: 12:54 LACE Index Scoring Tool - Questions: Length of Stay (in days): 3 Acuity (Admit via E.D.?): Yes Comorbidities: Diabetes w/o Complication E.D. Visits: 4 - Answers: Total Score: 11 Risk of Readmission: High Risk Care Management Discharge Reason for Hospitalization: ESBL Bacteremia and UTI Discharge Plan: Michelle will be discharged home with no new services. She will follow up with her PCP and plan of care and transport with family. Patient/Family Education Needs: Review discharge instructions, discuss Ask Me Three.
[2022-05-13 23:07] LABS: Legionella Ag Detection Urine Negative (Negative)
[2022-05-14 09:16] LABS: HBs Antibody, Quant <3.1 mIU/mL (See Note); Hep B Surface Ab Negative (See Note); Hepatitis B Core Antibody Negative (Negative); Hepatitis B Surface Antigen Negative (Negative)
[2022-05-14 09:35] LABS: HIV-1/2 Ag & Ab Screen Negative (Negative)
[2022-05-14 15:44] LABS: Streptococcus Pneumoniae Ag, U Negative (Negative)
== END 2022-05-13 13:33 | disposition home or self-care (01) | DRG 177 ==
LOC: ER 20:46 → MS 21:50
PROVIDERS: Internal Medicine; Nurse Practitioner Family; Admitting Provider Family Medicine; Emergency Provider Student in an Organized Health Care Education/Training Program; PCP Nurse Practitioner; Visit Provider Family Medicine
DX: U07.1 COVID-19 (principal); J18.9 Pneumonia, unspecified organism; D84.821 Immunodeficiency due to drugs; E11.9 Type 2 diabetes mellitus without complications; Z79.4 Long term (current) use of insulin; Z79.899 Other long term (current) drug therapy; K21.9 Gastro-esophageal reflux disease without esophagitis; R79.1 Abnormal coagulation profile; E83.42 Hypomagnesemia; Z96.652 Presence of left artificial knee joint; R03.0 Elevated blood-pressure reading, without diagnosis of hypertension; R60.0 Localized edema; L40.50 Arthropathic psoriasis, unspecified; G89.29 Other chronic pain; M79.662 Pain in left lower leg
CPT/HCPCS: 71275; 80053; 82550; 82805; 84145; 86704; 86706; 87040; 87077; 87081; 87340; 87389; 87449; 87637; 93005; 94640; 96365; 96366; 96367; 96375; 99285; J1650; Q0222; 71045; 81003; 81015; 82728; 83036; 83605; 83615; 83735; 83880; 84443; 84484; 85025; 85049; 85379; 85610; 85730; 86140; 87186; 87899; 93010; 93971; 99232; 99233; 99238; J0248; J1956; J3480; J3490; J7512

== ENCOUNTER 2022-06-13 22:08 | Inpatient (IN) | payer MEDICARE, OTHER, SELFPAY ==
--- NOTE | 2022-06-13 22:15 | DI.CT_ITS ---
Exam(s) CT HEAD WO EXAM: CT HEAD WO CLINICAL HISTORY: confusion acute. TECHNIQUE: Imaging Protocol: Axial computed tomography images with coronal and sagittal reformatted images were created and reviewed COMPARISON: No exams were available for comparison FINDINGS: There are no skull fractures. There is no fluid in the visualized paranasal sinuses. There is no evidence of intracranial hemorrhage, mass effect, or shift of midline structures. There are no extra-axial fluid collections. The ventricles are not enlarged or shifted and there is no blo od within the ventricular system nor within the basal cisterns. IMPRESSION: No acute intracranial findings on this noninfused CT scan of the brain. RADIATION DOSE DELIVERED: 749.93mGy.cm Total DLP DATA REPOSITORY: All CT scans at this facility are submitted to the National Radiology Data Registry (NRDR) Dose Index Registry (DIR) with the [employer] ([employer]). RADIATION OPTIMIZATION: All CT scans at this facility use at least one of these dose optimization te chniques: automated exposure control; mA and/or kV adjustment per patient size (includes targeted exa ms where dose is matched to clinical indication); or iterative reconstruction.
--- NOTE | 2022-06-13 22:15 | RT.EKG_ITS ---
APPROVED REPORT Exam: Resting ECG Reason for Exam: ams Patient Location: E HR:116 bpm ECG Measurements Heart Rate 116 AXIS TN 148 P 23 QRSd 131 QRS -86 QT 357 T 40 QTc 497 Conclusion Sinus tachycardia...rate> 99 Right bundle branch block...QRSd>120, terminal axis(90,270) Inferior infarct, old...Q >35mS, II III aVF Physician: no stemi, RBBB, stable compared to prior
[2022-06-13 22:19] VITALS: BP 159/85; PULSE 124; RESP 18; TEMP 37.3; O2SAT 96
[2022-06-13 22:47] LABS: Abs Immature Grans 0.02 10^3/uL (0.0-0.06); Absolute Basophil Count 0.11 10^3/uL (0.0-0.2); Absolute Eosinophil Count 0.41 10^3/uL (0.0-0.7); Absolute Lymphocyte Count 1.75 10^3/uL (1.2-3.4); Absolute Monocyte Count 0.71 10^3/uL (0.1-0.8); Absolute Neutrophil Count 2.99 10^3/uL (1.2-6.7); BE (Venous) -1 mmol/L (-2-3); Basophils % 1.8; Eosinophils % 6.8; HCO3 (Venous) 26 mmol/L (23-28); HCT 37.5 % (36.0-46.0); HGB 11.9 g/dL (11.2-15.7); Immature Grans % 0.3; Lymphocytes % 29.2; MCH 27.7 pg (27.0-33.0); MCHC 31.7 % (32.0-36.0); MCV 87 fL (80-95); MPV 9.6 fL (8.0-11.0); Monocytes % 11.9; O2 Sat (Venous) 54 %; Platelet Count 371 10^3/uL (130-400); RDW-SD 50.6 fL; TCO2 (Venous) 25 mmol/L (24-29); WBC 5.99 10^3/uL (4.4-10.8); pCO2 (Venous) 59 mmHg (41-51); pH (Venous) 7.26 (7.31-7.41); pO2 (Venous) 33 mmHg
[2022-06-13 22:57] LABS: Lactate 4.2 mmol/L (0.6-1.4)
[2022-06-13 23:10] LABS: ALT 32 U/L (14-59); AST 39 U/L (15-37); Albumin 3.6 g/dL (3.4-5.0); Alkaline Phosphatase 178 U/L (46-116); Anion Gap 11.8 mmol/L (3-11); BUN 19 mg/dL (7-18); Bilirubin, Total 0.6 mg/dL (0.2-1.0); CO2 28.2 mmol/L (21.0-32.0); CREATININE 1.4 mg/dL (0.55-1.02); Calcium 10.6 mg/dL (8.5-10.1); Chloride 99 mmol/L (98-107); Estimated GFR 41.75 (mL/min/1.73m2); Glucose 131 mg/dL (74-106); Sodium 139 mmol/L (136-145); Total Protein 7.8 g/dL (6.4-8.2)
[2022-06-13 23:12] LABS: TSH (W/Ref FT4) 5.48 uIU/mL (0.36-3.74)
--- NOTE | 2022-06-13 23:15 | DI.CT_ITS ---
Exam(s) CT CHEST WO EXAM: CT CHEST WO CLINICAL HISTORY: cough, r/o pneumonia. TECHNIQUE: Multi planar reconstructions were performed. CONTRAST MATERIAL: None COMPARISON: CT CT CHEST PE CTA from 05/10/2022 FINDINGS: CHEST: Images somewhat degraded by motion artifact. LUNGS: Mild increased markings in the left lung base but no large confluent infiltrates nor pleural e ffusions. No obvious pulmonary edema. No findings in the trachea and mainstem bronchi. MEDIASTINUM: There is no obvious hilar nor mediastinal adenopathy. Partially visualized thyroid unrem arkable.No obvious axillary adenopathy CARDIAC: Heart size slightly prominent. There is a thin pericardial effusion noted. Thickness is 4- 5 millimeters.Caliber of the thoracic aorta is within normal limits. VISUALIZED UPPER ABDOMEN: OSSEOUS: No significant osseous lesions.No fractures.. IMPRESSION: 1. No significant pulmonary infiltrates nor pleural effusions. No significant intrathoracic adenopat hy. 2. There is a thin pericardial effusion which measures 4-5 millimeters thickness. There is mild card iomegaly. First read by [facility]. Report called by myself to ER physician 06/14/2022 9:25 a.m.. RADIATION DOSE DELIVERED: 664.46mGy.cm Total DLP DATA REPOSITORY: All CT scans at this facility are submitted to the National Radiology Data Registry (NRDR) Dose Index Registry (DIR) with the [employer] (ACR). RADIATION OPTIMIZATION: All CT scans at this facility use at least one of these dose optimization te chniques: automated exposure control; mA and/or kV adjustment per patient size (includes targeted exa ms where dose is matched to clinical indication); or iterative reconstruction.
[2022-06-13 23:17] LABS: ETHANOL BLOOD < 3.0 mg/dL (<10)
[2022-06-13 23:21] LABS: COVID-19 PCR Negative (Negative); Influenza A PCR Negative (Negative); Influenza B PCR Negative (Negative); RSV PCR Negative (Negative)
[2022-06-13 23:23] LABS: Source Nasopharynx
[2022-06-13 23:33] LABS: Ammonia < 10 umol/L (11-32)
[2022-06-13 23:34] LABS: FREE T4 1.41 ng/dL (0.76-1.46)
[2022-06-13] MEDS: Normal Saline 500 ML IV (23:42)
[2022-06-13] MEDS: AZTREONAM 2,000 MG in Normal Saline 100 ML 200 MG IVPB (23:54)
--- NOTE | 2022-06-13 23:58 | DI.VRAD_ITS ---
PROCEDURE INFORMATION: Exam: CT Head Without Contrast Exam date and time: 06/13/2022 22:32 Age: 66 years old Clinical indication: Other: Confusion acute TECHNIQUE: Imaging protocol: Computed tomography of the head without contrast. Radiation optimization: All CT scans at this facility use at least one of these dose optimization techniques: automated exposure control; mA and/or kV adjustment per patient size (includes targeted exams where dose is matched to clinical indication); or iterative reconstruction. COMPARISON: No relevant prior studies available. FINDINGS: Brain: Atrophy and chronic appearing white matter changes. No edema or hemorrhage. Cerebral ventricles: No ventriculomegaly. Paranasal sinuses: No significant appearing sinusitis. Mastoid air cells: No mastoid effusion. Bones/joints: No acute fracture. Soft tissues: No suspicious lesions. IMPRESSION: No acute intracranial findings. Dictated and Authenticated by: Dinorah Arshad MD. Ordering:ISMA Hope MD
--- NOTE | 2022-06-14 00:19 | DI.VRAD_ITS ---
PROCEDURE INFORMATION: Exam: CT Chest Without Contrast; Diagnostic Exam date and time: 06/13/2022 11:29 PM Age: 66 years old Clinical indication: Other: Cough, R/O pneumonia TECHNIQUE: Imaging protocol: Diagnostic computed tomography of the chest without contrast. 3D rendering (Not supervised by radiologist): MIP and/or 3D reconstructed images were created by the technologist. Radiation optimization: All CT scans at this facility use at least one of these dose optimization techniques: automated exposure control; mA and/or kV adjustment per patient size (includes targeted exams where dose is matched to clinical indication); or iterative reconstruction. COMPARISON: CT CHEST PE CTA 05/10/2022 7:42 PM FINDINGS: Lungs: Nodular density in the right upper lobe measuring 3-4 mm axial image 15 No consolidation. No masses. Minimal subsegmental atelectasis versus scarring Pleural spaces: No pneumothorax. No pleural effusion. Heart: Coronary calcifications No cardiomegaly. No pericardial effusion. Lymph nodes: Unremarkable. No enlarged lymph nodes. Vasculature: Aortic valvular and mitral annular calcifications. No aortic aneurysm. Bones/joints: Unremarkable. No acute fracture. Soft tissues: Unremarkable. Prior cholecystectomy IMPRESSION: No CT evidence for pneumonia 3-4 mm nodular density in the right upper lobe, grossly stable. Consider CT follow-up within 12 months Dictated and Authenticated by: Agustin Bernardo MD. Ordering:ISMA Hope MD
--- NOTE | 2022-06-14 00:22 | ED.GENADUL_ITS ---
Discharge Plan Disposition Patient Disposition: [facility] INPATIENT Condition: Improving Discharge Details Chief Complaint: AMS/LOC Clinical Impression: Sepsis, Pneumonia, Bacteremia Primary Care Provider: Chito Brunner ED Provider: Jayy Parish Home Meds and New Rx's Prescriptions: No Action insulin glargine [Lantus U-100 Insulin] 100 UNIT/ML solution 24 units Sub-Q DAILY AM albuterol sulfate 3 ML solution for nebulization 1 unit Inhalation QID PRN Label Comments: 02/10/14- pt has not used for months, per pt methylprednisolone 4 MG tablet 4 mg PO DAILY leflunomide [Arava] 20 MG tablet 20 mg PO DAILY esomeprazole magnesium [Nexium] 40 MG capsule,delayed release(DR/EC) 40 mg PO DAILY folic acid 1 MG tablet 1 mg PO DAILY zolpidem 10 MG tablet 10 mg PO HS calcium carbonate-vitamin D3 [Calcium 600 + D(3)] 1 EACH tablet 1 tab PO BID carvedilol 12.5 mg tablet 12.5 mg PO BID Label Comments: Take 1 tablet by mouth 2 times daily with meals. cyclobenzaprine 10 mg tablet 10 mg PO TID PRN (Reason: Muscle Spasm) Rx Instructions: Pt reports using this q-4-6h doxycycline hyclate 100 mg capsule 100 mg PO BID Rx Instructions: Pt reports supposed to take through the end of May for leg surgery ondansetron HCl 4 mg tablet 4 mg PO Q8H PRN PRN metoclopramide HCl 5 mg tablet 5 mg PO TID Rx Instructions: 30 minutes before meals; 30 day supply filled on 05/07/22, pt unsure if she takes this montelukast 10 mg tablet 10 mg PO DAILY AM Label Comments: TAKE ONE TABLET BY MOUTH ONE TIME DAILY Rx Instructions: Pt reports taking in the am oxycodone 5 mg tablet 5 - 10 mg PO Q6H PRN PRN Label Comments: As Needed for pain for 7 days; 1 - 2 tabs orally every 6 hours PRN; ascorbic acid (vitamin C) 500 mg Tablet See Rx Instructions .ROUTE .COMPLEX Rx Instructions: 1 dose po qday; pt unable to remember strength of OTC she uses diphenhydramine HCl [Benadryl] 25 mg Capsule 50 mg PO Q6H PRN PRN (Reason: Allergic Reaction) Rx Instructions: Pt reports taking 50 mg po c each opioid dose albuterol sulfate [Ventolin HFA] 90 mcg/actuation Hfa Aerosol Inhaler 2 puff inhalation Q4H PRN PRNQty: 8.5 0RF benzonatate 100 mg Capsule 100 mg PO TID PRN PRN (Reason: Cough) Qty: 20 0RF Combivent Respimat 20-100 mcg/actuation Mist 1 puff inhalation QID Qty: 4 0RF levofloxacin 750 mg Tablet 750 mg PO QAM Qty: 3 0RF aspirin 81 mg Tablet,Chewable 81 mg PO DAILY Multi Vitamin 9 mg iron/15 mL Liquid 1 mg PO DAILY insulin lispro [Humalog KwikPen Insulin] 100 unit/mL Insulin Pen See Rx Instructions .ROUTE .COMPLEX Rx Instructions: Original sig- 10 units+SS sc tid with meals. Pt often skips breakfast and lunch dosing due to BG in range, normally injects 14 units sc with evening meal Medical Decision Making This is a very pleasant 66-year-old female with a past medical history of diabetes mellitus, rheumatoid arthritis, chronic immunosuppressive medication use, reflux, with multiple admissions recently for recurrent bacteremia illness and COVID. She is vaccinated against COVID. She has not received the most recent booster secondary to the recent infection and not having enough time out from when she had the infection. She presents today with her for evaluation of confusion. states that for the last 3 days she has been increasingly confused, this evening she did not know how to brush her teeth or what the toothbrush was. She has had chills but no documented fever. No cough. No medication changes except for increasing calcium supplementation. Patient comes in no other complaints at this time. No other recent sick contacts that she was exposed to. Physical exam demonstrates crackles in the bases, and extremely confused patient, no other focal lesions. No abdominal pain. Differential is highest for pneumonia, UTI or bacteremia. We will get a CT scan of the head out of an abundance of precaution, an image of the chest. We will test for COVID. 12:40 AM Laboratory work-up is returned, no white count, however the patient's lactate is 4.2. pH minimally acidotic, minimal elevation of her PCO2, electrolytes stable, ammonia normal, TSH elevated but free T4 normal. Alcohol level normal, COVID test, flu, RSV are all negative. Still pending urinalysis. We have started the patient on vancomycin and aztreonam secondary to her penicillin allergy. Patient was gently rehydrated with 500 cc of normal saline, will continue administering. On reassessment she actually knows who I am now, and appears slightly more cognizant. I do feel that she warrants admission. CT scan is read as no evidence of pneumonia, but there is minimal subsegmental atelectasis versus scarring which clinically I would say would be more likely to be atelectasis and early infiltrate with her crackles noted on exam, and her symptoms of illness. I discussed the case with Dr. Gaytan, he agrees with the assessment and plan. I have extensively reviewed the treatment plan with the patient. I have addressed all patient concerns at this time. I have also discussed the plan with the admitting physician and they agree with the current assessment and plan and have agreed to assume responsibility for the patient. All parties demonstrate verbal understanding and agreement with our assessment and plan at this time. The documentation in this chart was dictated using [employer] dictation software. Please excuse any dictation errors. FINDINGS: Brain: Atrophy and chronic appearing white matter changes. No edema or hemorrhage. Cerebral ventricles: No ventriculomegaly. Paranasal sinuses: No significant appearing sinusitis. Mastoid air cells: No mastoid effusion. Bones/joints: No acute fracture. Soft tissues: No suspicious lesions. IMPRESSION: No acute intracranial findings. Thank you for allowing us to participate in the care of your patient. Dictated and Authenticated by: Dinorah Arshad MD 06/13/2022 11:58 PM Eastern Time ([place] & [place] FINDINGS: Lungs: Nodular density in the right upper lobe measuring 3-4 mm axial image 15 No consolidation. No masses. Minimal subsegmental atelectasis versus scarring Pleural spaces: No pneumothorax. No pleural effusion. Heart: Coronary calcifications No cardiomegaly. No pericardial effusion. Lymph nodes: Unremarkable. No enlarged lymph nodes. Vasculature: Aortic valvular and mitral annular calcifications. No aortic aneurysm. Bones/joints: Unremarkable. No acute fracture. Soft tissues: Unremarkable. Prior cholecystectomy IMPRESSION: No CT evidence for pneumonia 3-4 mm nodular density in the right upper lobe, grossly stable. Consider CT follow-up within 12 months Thank you for allowing us to participate in the care of your patient. Dictated and Authenticated by: Agustin Bernardo MD 06/14/2022 12:18 AM Eastern Time ([place] & [place]) HPI General Date/Time Provider Initiated Documentation: 06/13/22 22:16 . HPI Narrative: This is a very pleasant 66-year-old female with a past medical history of diabetes mellitus, rheumatoid arthritis, chronic immunosuppressive medication use, reflux, with multiple admissions recently for recurrent bacteremia illness and COVID. She is vaccinated against COVID. She has not received the most recent booster secondary to the recent infection and not having enough time out from when she had the infection. She presents today with her for evaluation of confusion. states that for the last 3 days she has been increasingly confused, this evening she did not know how to brush her teeth or what the toothbrush was. She has had chills but no documented fever. No cough. No medication changes except for increasing calcium supplementation. Patient comes in no other complaints at this time. No other recent sick contacts that she was exposed to. Related Data Home Medications Medication Instructions Recorded Confirmed albuterol sulfate 2.5 mg/3 mL 1 unit inhalation QID PRN 01/11/14 06/13/22 (0.083 %) solution for nebulization calcium carbonate 600 mg-vitamin 1 tab PO BID 01/11/14 06/13/22 D3 10 mcg (400 unit) tablet (Calcium 600 + D(3)) esomeprazole magnesium 40 mg 40 mg PO DAILY 01/11/14 06/13/22 capsule,delayed release (Nexium) folic acid 1 mg tablet 1 mg PO DAILY 01/11/14 06/13/22 insulin glargine 100 unit/mL 24 units subcut DAILY AM 01/11/14 06/13/22 subcutaneous solution (Lantus U-100 Insulin) leflunomide 20 mg tablet (Arava) 20 mg PO DAILY 01/11/14 06/13/22 methylprednisolone 4 mg tablet 4 mg PO DAILY 01/11/14 06/13/22 zolpidem 10 mg tablet 10 mg PO HS 01/11/14 06/13/22 aspirin 81 mg chewable tablet 81 mg PO DAILY 04/09/19 06/13/22 insulin lispro 100 unit/mL See Rx Instructions .Route .COMPLEX 04/09/19 06/13/22 subcutaneous pen (Humalog KwikPen (U-100) Insulin) multivitamin with minerals-iron 1 mg PO DAILY 04/09/19 06/13/22 fumarate 9 mg iron/15 mL oral liquid (Multi Vitamin) carvedilol 12.5 mg tablet 12.5 mg PO BID 02/26/22 06/13/22 ascorbic acid (vitamin C) 500 mg See Rx Instructions .Route .COMPLEX 05/10/22 06/13/22 tablet cyclobenzaprine 10 mg tablet 10 mg PO TID PRN Muscle Spasm 05/10/22 06/13/22 diphenhydramine HCl 25 mg capsule 50 mg PO Q6H PRN PRN Allergic 05/10/22 06/13/22 (Benadryl) Reaction doxycycline hyclate 100 mg capsule 100 mg PO BID 05/10/22 06/13/22 metoclopramide HCl 5 mg tablet 5 mg PO TID 05/10/22 06/13/22 montelukast 10 mg tablet 10 mg PO DAILY AM 05/10/22 06/13/22 ondansetron HCl 4 mg tablet 4 mg PO Q8H PRN PRN 05/10/22 06/13/22 oxycodone 5 mg tablet 5 - 10 mg PO Q6H PRN PRN 05/10/22 06/13/22 albuterol sulfate 90 mcg/actuation 2 puff inhalation Q4H PRN PRN #8.5 05/13/22 06/13/22 aerosol inhaler (Ventolin HFA) grams benzonatate 100 mg capsule 100 mg PO TID PRN PRN Cough #20 05/13/22 06/13/22 caps ipratropium 20 mcg-albuterol 100 1 puff inhalation QID #4 grams 05/13/22 06/13/22 mcg/actuation mist for inhalation (Combivent Respimat) levofloxacin 750 mg tablet 750 mg PO QAM #3 tabs 05/13/22 06/13/22 Previous Rx's Medication Instructions Recorded albuterol sulfate 90 mcg/actuation 2 puff inhalation Q4H PRN PRN #8.5 05/13/22 aerosol inhaler (Ventolin HFA) grams benzonatate 100 mg capsule 100 mg PO TID PRN PRN Cough #20 05/13/22 caps ipratropium 20 mcg-albuterol 100 1 puff inhalation QID #4 grams 05/13/22 mcg/actuation mist for inhalation (Combivent Respimat) levofloxacin 750 mg tablet 750 mg PO QAM #3 tabs 05/13/22 Allergies Allergy/AdvReac Type Severity Reaction Status Date / Time clarithromycin [From Biaxin] Allergy Intermediate Skin Rash Unverified 06/13/22 22:27 Penicillins Allergy Intermediate Skin Rash Unverified 06/13/22 22:27 Sulfa (Sulfonamide Allergy Intermediate Skin Rash Unverified 06/13/22 22:27 Antibiotics) capsaicin Allergy Anaphylaxsi Unverified 06/13/22 22:27 s nickel Allergy Unverified 06/13/22 22:27 General Stated Complaint: AMS/LOC ARABELLA: 2 Review of Systems All systems reviewed & are unremarkable except as noted in HPI and below PFSH All Active Problems (Updated 06/14/22 @ 01:59 by Jayy Parish DO) Sepsis (Acute) Pneumonia (Acute) Bacteremia (Acute) Bacteremia (Acute) Chronic pain (Chronic) Pneumonia (Acute) COVID (Acute) Cellulitis and abscess of foot (Acute) Contusion of right foot (Acute) Sepsis (Acute) Bone infection of left foot (Acute) Status post total left knee replacement (Acute) Pain (Acute) Lower extremity pain (Acute) Medical History Bacteremia due to group B Streptococcus Diabetes mellitus Edema, peripheral Psoriatic arthritis Surgical History 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 Exam Narrative Exam Narrative: 1.Const: Well-nourished, Well-developed, appearing stated age 2.Eyes: PERRL, no conjunctival injection, and symmetrical lids. 3.ENT: Atraumatic external nose and ears. Moist MM. Neck: Symmetric, trachea midline, No thyromegaly. Patient demonstrates good movement of cervical neck. There is no nuchal rigidity, no nuchal tenderness. Patient is able to flex the neck without any difficulty or significant pain. Negative Kernig's and Brudzinski sign. 4.CVS: +S1/S2, No murmurs or gallops. Peripheral pulses 2+ and equal in all extremities. Brisk capillary refill in all extremities. 5.RESP: Unlabored respiratory effort. Crackles in the bases bilaterally 6.GI: Soft, Nontender/Nondistended, No hepatosplenomegaly. No guarding or rebound. 7.MSK: Normocephalic/Atraumatic, Extremities w/o deformity or ttp No cyanosis or clubbing, Normal movement of all extremities 8.Skin: Warm, Dry. No rashes or lesions. 9.Neuro: chyron operator II-XII grossly intact. Sensation grossly intact, no focal neurologic deficits. 10.Psych: (AAO) x0. Extremely confused with some inappropriate word Course Vital Signs Vital signs: Vital Signs Temperature 37.3 C 06/13/22 22:19 Pulse 124 H 06/13/22 22:19 Respiratory Rate 18 06/13/22 22:19 Blood Pressure 159/85 H 06/13/22 22:19 Pulse Oximetry 96 06/13/22 22:19 Temperature 37.3 C 06/13/22 22:19 Temperature Source Oral 06/13/22 22:19 Pulse 124 H 06/13/22 22:19 Respiratory Rate 18 06/13/22 22:19 Respiratory Effort Non-Labored 06/13/22 22:22 Respiratory Depth Normal 06/13/22 22:22 Respiratory Pattern Normal 06/13/22 22:22 Blood Pressure 159/85 H 06/13/22 22:19 Blood Pressure Position Supine 06/13/22 22:19 Pulse Oximetry 96 06/13/22 22:19 Oxygen Delivery Method Room Air 06/13/22 22:19 Oxygen Flow Rate 0 06/13/22 22:19 Pain Level 0 06/13/22 22:19 Lab/Test Results Lab/Test Results: 06/13/22 23:42 Blood Blood Culture - Pending 06/13/22 22:40 Blood Blood Culture - Pending Laboratory Tests Range/Units 06/13/22 06/13/22 06/13/22 22:36 22:40 22:40 WBC (4.4-10.8) 10^3/uL RBC (3.93-5.22) 10^6/uL Hgb (11.2-15.7) g/dL Hct (36.0-46.0) % MCV (80-95) fL MCH (27.0-33.0) pg MCHC (32.0-36.0) % RDW (11.7-14.6) % Plt Count (130-400) 10^3/uL MPV (8.0-11.0) fL Immature Gran % Neutrophils % Lymphocytes % Monocytes % Eosinophils % Basophils % Nucleated RBC % (0.0-0.3) % Absolute Neutrophils (1.2-6.7) 10^3/uL Absolute Lymphocytes (1.2-3.4) 10^3/uL Absolute Monocytes (0.1-0.8) 10^3/uL Absolute Eosinophils (0.0-0.7) 10^3/uL Absolute Basophils (0.0-0.2) 10^3/uL VBG pH (7.31-7.41) VBG pCO2 (41-51) mmHg VBG pO2 mmHg VBG HCO3 (23-28) mmol/L VBG Total CO2 (24-29) mmol/L VBG O2 Saturation % VBG Base Excess (-2-3) mmol/L VBG Lactate (0.6-1.4) mmol/L Sodium (136-145) mmol/L 139 Potassium (3.5-5.1) mmol/L 4.0 Chloride (98-107) mmol/L 99 Carbon Dioxide (21.0-32.0) mmol/L 28.2 Anion Gap (3-11) mmol/L 11.8 H BUN (7-18) mg/dL 19 H Creatinine (0.55-1.02) mg/dL 1.4 H Est GFR (CKD-EPI 2020) (mL/min/1.73m2) 41.75 Glucose (74-106) mg/dL 131 H Calcium (8.5-10.1) mg/dL 10.6 H Total Bilirubin (0.2-1.0) mg/dL 0.6 AST (15-37) U/L 39 H ALT (14-59) U/L 32 Alkaline Phosphatase (46-116) U/L 178 H Ammonia (11-32) umol/L < 10 L Total Protein (6.4-8.2) g/dL 7.8 Albumin (3.4-5.0) g/dL 3.6 TSH (0.36-3.74) uIU/mL Free T4 (0.76-1.46) ng/dL Ethyl Alcohol (<10) mg/dL < 3.0 COVID-19 Source Nasopharynx SARS-CoV-2 (PCR) (Negative) Negative Influenza Type A (PCR) (Negative) Negative Influenza Type B (PCR) (Negative) Negative RSV (PCR) (Negative) Negative Range/Units 06/13/22 06/13/22 06/13/22 22:40 22:40 22:40 WBC (4.4-10.8) 10^3/uL RBC (3.93-5.22) 10^6/uL Hgb (11.2-15.7) g/dL Hct (36.0-46.0) % MCV (80-95) fL MCH (27.0-33.0) pg MCHC (32.0-36.0) % RDW (11.7-14.6) % Plt Count (130-400) 10^3/uL MPV (8.0-11.0) fL Immature Gran % Neutrophils % Lymphocytes % Monocytes % Eosinophils % Basophils % Nucleated RBC % (0.0-0.3) % Absolute Neutrophils (1.2-6.7) 10^3/uL Absolute Lymphocytes (1.2-3.4) 10^3/uL Absolute Monocytes (0.1-0.8) 10^3/uL Absolute Eosinophils (0.0-0.7) 10^3/uL Absolute Basophils (0.0-0.2) 10^3/uL VBG pH (7.31-7.41) 7.26 L VBG pCO2 (41-51) mmHg 59 H VBG pO2 mmHg 33 VBG HCO3 (23-28) mmol/L 26 VBG Total CO2 (24-29) mmol/L 25 VBG O2 Saturation % 54 VBG Base Excess (-2-3) mmol/L -1 VBG Lactate (0.6-1.4) mmol/L 4.2 H* Sodium (136-145) mmol/L Potassium (3.5-5.1) mmol/L Chloride (98-107) mmol/L Carbon Dioxide (21.0-32.0) mmol/L Anion Gap (3-11) mmol/L BUN (7-18) mg/dL Creatinine (0.55-1.02) mg/dL Est GFR (CKD-EPI 2020) (mL/min/1.73m2) Glucose (74-106) mg/dL Calcium (8.5-10.1) mg/dL Total Bilirubin (0.2-1.0) mg/dL AST (15-37) U/L ALT (14-59) U/L Alkaline Phosphatase (46-116) U/L Ammonia (11-32) umol/L Total Protein (6.4-8.2) g/dL Albumin (3.4-5.0) g/dL TSH (0.36-3.74) uIU/mL 5.48 H Free T4 (0.76-1.46) ng/dL 1.41 Ethyl Alcohol (<10) mg/dL COVID-19 Source SARS-CoV-2 (PCR) (Negative) Influenza Type A (PCR) (Negative) Influenza Type B (PCR) (Negative) RSV (PCR) (Negative) Range/Units 06/13/22 22:40 WBC (4.4-10.8) 10^3/uL 5.99 RBC (3.93-5.22) 10^6/uL 4.30 Hgb (11.2-15.7) g/dL 11.9 Hct (36.0-46.0) % 37.5 MCV (80-95) fL 87 MCH (27.0-33.0) pg 27.7 MCHC (32.0-36.0) % 31.7 L RDW (11.7-14.6) % 16.0 H Plt Count (130-400) 10^3/uL 371 MPV (8.0-11.0) fL 9.6 Immature Gran % 0.3 Neutrophils % 50.0 Lymphocytes % 29.2 Monocytes % 11.9 Eosinophils % 6.8 Basophils % 1.8 Nucleated RBC % (0.0-0.3) % 0.0 Absolute Neutrophils (1.2-6.7) 10^3/uL 2.99 Absolute Lymphocytes (1.2-3.4) 10^3/uL 1.75 Absolute Monocytes (0.1-0.8) 10^3/uL 0.71 Absolute Eosinophils (0.0-0.7) 10^3/uL 0.41 Absolute Basophils (0.0-0.2) 10^3/uL 0.11 VBG pH (7.31-7.41) VBG pCO2 (41-51) mmHg VBG pO2 mmHg VBG HCO3 (23-28) mmol/L VBG Total CO2 (24-29) mmol/L VBG O2 Saturation % VBG Base Excess (-2-3) mmol/L VBG Lactate (0.6-1.4) mmol/L Sodium (136-145) mmol/L Potassium (3.5-5.1) mmol/L Chloride (98-107) mmol/L Carbon Dioxide (21.0-32.0) mmol/L Anion Gap (3-11) mmol/L BUN (7-18) mg/dL Creatinine (0.55-1.02) mg/dL Est GFR (CKD-EPI 2020) (mL/min/1.73m2) Glucose (74-106) mg/dL Calcium (8.5-10.1) mg/dL Total Bilirubin (0.2-1.0) mg/dL AST (15-37) U/L ALT (14-59) U/L Alkaline Phosphatase (46-116) U/L Ammonia (11-32) umol/L Total Protein (6.4-8.2) g/dL Albumin (3.4-5.0) g/dL TSH (0.36-3.74) uIU/mL Free T4 (0.76-1.46) ng/dL Ethyl Alcohol (<10) mg/dL COVID-19 Source SARS-CoV-2 (PCR) (Negative) Influenza Type A (PCR) (Negative) Influenza Type B (PCR) (Negative) RSV (PCR) (Negative)
[2022-06-14] MEDS: VANCOMYCIN 2,000 MG in Normal Saline 500 ML 333.3333 MG IVPB (00:28)
[2022-06-14 00:47] LABS: Bilirubin Negative (Negative); Blood Negative (Negative); Clarity Clear (Clear); Glucose Negative (Negative); Ketones Trace mg/dL (Negative); Leukocyte Esterase Negative (Negative); Nitrite Negative (Negative); Specific Gravity >= 1.030 (1.005-1.025); Urobilinogen 0.2 EU/dL (Up TO 0.2)
[2022-06-14 00:56] LABS: RBC Negative HPF (0-2); WBC 0-2 HPF (0-5)
[2022-06-14 00:57] LABS: Bacteria Rare HPF (Negative); C & S Indicated? No; Casts 3-5 Hyaline LPF (Negative); Crystals Many Calcium Oxalate HPF (Negative); Epithelial Cells Few HPF (Negative); Mucus Negative (Negative)
[2022-06-14 02:15] VITALS: PULSE 90; TEMP 36.4
[2022-06-14 02:28] VITALS: BP 182/78; PULSE 111
[2022-06-14 02:30] VITALS: O2SAT 96
[2022-06-14 04:01] VITALS: BP 158/71; PULSE 88; O2SAT 91
[2022-06-14] MEDS: oxyCODONE 5 MG TAB PO (04:23)
--- NOTE | 2022-06-14 04:28 | HPE_ITS ---
Date of service: 06/14/22 Time of Service: 04:28 Assessment and Plan Assessment and plan (1) Acute confusion: Status: Acute Assessment and plan: Concern for acute infection in the emergency room mostly based on her lactate and her history, but further assessment has not revealed any source of infection . CT not consistent with pneumonia, urinalysis not infected, no fever or white count. She is taking a DMARD and some chronic corticosteroids at a low dose, but this should not cause profound immune suppression. My assessment is that her medications are the likely cause of her subacute worsening mental status in the setting of new renal insufficiency. Hypercalemia, which is also new, could be contributing. We really need a clearer picture of the medications prescribed and treatment plan of her various treating clinicians. For now, I am holding diphenhydramine and cyclobenzaprine (both anticholinergic) and metoclopramide. I am holding montelukast, which has a black box warning for highly variable neuropsychiatric ADRs. I am cutting zolpidem in half consistent with dosing recommendations for women and those over 65 I am not continuing antibiotics, but will monitor closely for signs of infection and follow lactate after some fluids. I did add a UDS. She is on chronic opioids for pain and I continued this. (2) Polypharmacy: Status: Acute Assessment and plan: As above. We need some help collecting records, and pharmacist input will be helpful in avoiding medication induced illness. She did mention one new medication but could not remember the name. Prescription monitoring systems in [place] and [place] would also help quanitify how much controlled medication she is getting. (3) Hypercalcemia: Status: Acute Assessment and plan: This is new since last visit. I am holding the calcium supplument. (4) Renal insufficiency: Status: Chronic Assessment and plan: Creatinine up since last visit. It was not elevated at previous admission, may be related to remdesavir or one of the antibiotics. Follow after some fluids. (5) Chronic pain: Status: Chronic Assessment and plan: As above, continue oxycodone prn. Alternative adjunctive medication to the diphenhydramine and cyclobenzaprine may be preferred. (6) Diabetes mellitus: Assessment and plan: A1c of 6.1% at last admission reflects overtreatment. It does not appear that hypoglycemia is the cause of her Qualifiers: Diabetes mellitus type: type 2 Diabetes mellitus buttermaker continuous churn insulin use: with shelter use Diabetes mellitus complication status: with other specified complication Qualified Code(s): E11.69 - Type 2 diabetes mellitus with other specified complication; Z79.4 - skilled nursing (current) use of insulin (7) Psoriatic arthritis: Assessment and plan: Examination of her hands is c/w active psoriatic arthritis. She was previously on humira but stopped due to recurrent infections including bacteremia. Continue leflunomide/folate and methylprednisolone for now, but we need to contirm she should be on both of these (8) Bone infection of left foot: Status: Acute Assessment and plan: She reports chroinc necrosis? We need to clarify this. Her feet are very tender but do no show signs of acute infection. This is the major source of her chronic pain. (9) DVT prophylaxis: Status: Acute Assessment and plan: LMWH (10) Discharge planning issues: Status: Acute Assessment and plan: She is currently stable, medical floor status boarding in the ICU. History of Present Illness History of Present Illness Chief Complaint: mental status changes/confusion Narrative: 66 yo F with psoriatic arthritis on leflunomide and chroinc corticosteroids, chronic pain on opioids as well as multiple anticholinergic and sedating medications, type 2 diabetes on basal bolus insulin with recent hgb A1c of 6.1%, and recent admission 05/10- with COVID pneumoniam, who is presenting with worsening of confusion that has been noted for the past 3 days. She reported to me difficulty finding words and remembering things, feeling cloudy headed. Per 's report he brought her in today because she didn't know where her to [facility] was or how to brush her teeth. In my interview she did say she has one new medication, but couldn't remember the name or what it was for. She hasn't felt sick lately other than confusion. No fever, no new pain. She has been eating and drinking. She does endorse feeling chilled, but no shaking rigors. No cough or new difficulty breathing. No urine or bowel changes. No headache. During her 05/10- admission she was treated for COVID with remdesavir and pneumonia with levofloxacin. She was never hypoxic. Review of Systems Constitutional Constitutional: Denies anorexia, Denies fever(s), Denies headache(s), Reports lethargy and Denies weakness Eyes Eyes: Denies change in vision and Denies irritation ENT Ears, Nose, Mouth, and Throat: Denies dizziness, Denies headache(s), Denies nasal congestion, Denies nasal discharge and Denies sore throat Cardiovascular Cardiovascular: Denies chest pain, Denies syncope, Denies palpitations and Denies orthopnea Respiratory Respiratory: Denies cough, Denies excessive phlegm production and Denies wheezing Gastrointestinal Gastrointestinal: Denies abdominal pain, Denies melena, Denies hematochezia, Denies change in stool character, Reports constipation (feels like she may need help if no BM today), Denies heartburn, Denies diarrhea and Denies vomiting Genitourinary Genitourinary: Denies hematuria, Denies dysuria and Denies urinary incontinence Integumentary/Breasts Skin/Breast: Denies rash and Denies skin ulcer Neurologic Neurologic: Denies dizziness, Denies syncope, Denies headache(s), Denies sensory deficit and Denies weakness Psychiatric Psychiatric: Denies depression, Denies mood swings and Denies visual hallucinations Endocrine Endocrine: Denies palpitations Hematologic/Lymphatic Hematologic/Lymphatic: Denies easy bleeding Allergic/Immunologic Allergic/Immunologic: Denies wheezing PFSH All Active Problems Discharge planning issues (Acute) DVT prophylaxis (Acute) Renal insufficiency (Chronic) Hypercalcemia (Acute) Polypharmacy (Acute) Bacteremia (Acute) Acute confusion (Acute) Bacteremia (Acute) Chronic pain (Chronic) Pneumonia (Acute) COVID (Acute) Cellulitis and abscess of foot (Acute) Contusion of right foot (Acute) Sepsis (Acute) Bone infection of left foot (Acute) Status post total left knee replacement (Acute) Pain (Acute) Lower extremity pain (Acute) Medical History Bacteremia due to group B Streptococcus Diabetes mellitus Edema, peripheral Psoriatic arthritis Surgical History History of left 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 Meds Allergies and Home Medications Allergies Allergy/AdvReac Type Severity Reaction Status Date / Time clarithromycin [From Biaxin] Allergy Intermediate Skin Rash Unverified 06/13/22 22:27 Penicillins Allergy Intermediate Skin Rash Unverified 06/13/22 22:27 Sulfa (Sulfonamide Allergy Intermediate Skin Rash Unverified 06/13/22 22:27 Antibiotics) capsaicin Allergy Anaphylaxsi Unverified 06/13/22 22:27 s nickel Allergy Unverified 06/13/22 22:27 Home Medications Medication Instructions Recorded Confirmed Type albuterol sulfate 2.5 mg/3 mL 1 unit inhalation QID PRN 01/11/14 06/13/22 History (0.083 %) solution for nebulization calcium carbonate 600 mg-vitamin 1 tab PO BID 01/11/14 06/13/22 History D3 10 mcg (400 unit) tablet (Calcium 600 + D(3)) esomeprazole magnesium 40 mg 40 mg PO DAILY 01/11/14 06/13/22 History capsule,delayed release (Nexium) folic acid 1 mg tablet 1 mg PO DAILY 01/11/14 06/13/22 History insulin glargine 100 unit/mL 24 units subcut DAILY AM 01/11/14 06/13/22 History subcutaneous solution (Lantus U-100 Insulin) leflunomide 20 mg tablet (Arava) 20 mg PO DAILY 01/11/14 06/13/22 History methylprednisolone 4 mg tablet 4 mg PO DAILY 01/11/14 06/13/22 History zolpidem 10 mg tablet 10 mg PO HS 01/11/14 06/13/22 History aspirin 81 mg chewable tablet 81 mg PO DAILY 04/09/19 06/13/22 History insulin lispro 100 unit/mL See Rx Instructions .Route .COMPLEX 04/09/19 06/13/22 History subcutaneous pen (Humalog KwikPen (U-100) Insulin) multivitamin with minerals-iron 1 mg PO DAILY 04/09/19 06/13/22 History fumarate 9 mg iron/15 mL oral liquid (Multi Vitamin) carvedilol 12.5 mg tablet 12.5 mg PO BID 02/26/22 06/13/22 History ascorbic acid (vitamin C) 500 mg See Rx Instructions .Route .COMPLEX 05/10/22 06/13/22 History tablet cyclobenzaprine 10 mg tablet 10 mg PO TID PRN Muscle Spasm 05/10/22 06/13/22 History diphenhydramine HCl 25 mg capsule 50 mg PO Q6H PRN PRN Allergic 05/10/22 06/13/22 History (Benadryl) Reaction doxycycline hyclate 100 mg capsule 100 mg PO BID 05/10/22 06/13/22 History metoclopramide HCl 5 mg tablet 5 mg PO TID 05/10/22 06/13/22 History montelukast 10 mg tablet 10 mg PO DAILY AM 05/10/22 06/13/22 History ondansetron HCl 4 mg tablet 4 mg PO Q8H PRN PRN 05/10/22 06/13/22 History oxycodone 5 mg tablet 5 - 10 mg PO Q6H PRN PRN 05/10/22 06/13/22 History albuterol sulfate 90 mcg/actuation 2 puff inhalation Q4H PRN PRN #8.5 05/13/22 06/13/22 Rx aerosol inhaler (Ventolin HFA) grams benzonatate 100 mg capsule 100 mg PO TID PRN PRN Cough #20 05/13/22 06/13/22 Rx caps ipratropium 20 mcg-albuterol 100 1 puff inhalation QID #4 grams 05/13/22 06/13/22 Rx mcg/actuation mist for inhalation (Combivent Respimat) levofloxacin 750 mg tablet 750 mg PO QAM #3 tabs 05/13/22 06/13/22 Rx Exam Narrative Exam Narrative: GEN: Sleepy (at 4:30am) but oriented x 3, able to hold conversation. pleasant and cooperative, gives linear history but trouble recalling patel facts like medication changes, difficulty with word finding. No acute distress at rest. HEENT: Head atraumatic. Conjunctiva clear, no icterus. PEERL (~3mm in dark room), EOMI. no rhinorrhea. MMM, OP benign. Neck is supple with no masses or lymphadenopathy, trachea midline. no pain with ROM neck LUNGS: CTAB with normal effort CV: RRR with no murmurs, gallops, or rubs. ABD: +BS, soft, NT/ND EXT: no cyanosis, clubbing. 1+ layne pitting edema to shins layne MSK: No joint redness, but layne fingers to MCPs swollen right > left. Mildly tender. Both feet were also tender, no no focal swelling. NEURO: CN 2-12 grossly intact. Normal movement of 4 extremities. Normal speech and coordination. no tremor. SKIN: No rashes or open wounds. PSYCH: normal mood and affect, though somwhat sedated. no hallucinations or delusions. good insight. Results Imaging CT scan - chest: report reviewed (No CT evidence for pneumonia 3-4 mm nodular density in the right upper lobe, grossly stable. Consider CT follow-up within 12 months) EKG: report reviewed Imaging Studies: CT head: no acute disease Labs Result diagrams: 06/13/22 22:40 06/13/22 22:40 Labs: Laboratory Results - last 24 hr 06/13/22 06/13/22 06/13/22 22:36 22:40 22:40 WBC RBC Hgb Hct MCV MCH MCHC RDW Plt Count MPV Immature Gran % Neutrophils % Lymphocytes % Monocytes % Eosinophils % Basophils % Nucleated RBC % Absolute Neutrophils Absolute Lymphocytes Absolute Monocytes Absolute Eosinophils Absolute Basophils VBG pH VBG pCO2 VBG pO2 VBG HCO3 VBG Total CO2 VBG O2 Saturation VBG Base Excess VBG Lactate Sodium 139 Potassium 4.0 Chloride 99 Carbon Dioxide 28.2 Anion Gap 11.8 H BUN 19 H Creatinine 1.4 H Est GFR (CKD-EPI 2020) 41.75 Glucose 131 H Calcium 10.6 H Total Bilirubin 0.6 AST 39 H ALT 32 Alkaline Phosphatase 178 H Ammonia < 10 L Total Protein 7.8 Albumin 3.6 TSH Free T4 Urine Color Urine Clarity Urine pH Ur Specific [place] Urine Protein Urine Ketones Urine Blood Urine Nitrite Urine Bilirubin Urine Urobilinogen Ur Leukocyte Esterase Urine RBC Urine WBC Ur Epithelial Cells Urine Crystals Urine Bacteria Urine Casts Urine Mucus Ur Culture Indicated? Urine Glucose Ethyl Alcohol < 3.0 COVID-19 Source Nasopharynx SARS-CoV-2 (PCR) Negative Influenza Type A (PCR) Negative Influenza Type B (PCR) Negative RSV (PCR) Negative 06/13/22 06/13/22 06/13/22 22:40 22:40 22:40 WBC RBC Hgb Hct MCV MCH MCHC RDW Plt Count MPV Immature Gran % Neutrophils % Lymphocytes % Monocytes % Eosinophils % Basophils % Nucleated RBC % Absolute Neutrophils Absolute Lymphocytes Absolute Monocytes Absolute Eosinophils Absolute Basophils VBG pH 7.26 L VBG pCO2 59 H VBG pO2 33 VBG HCO3 26 VBG Total CO2 25 VBG O2 Saturation 54 VBG Base Excess -1 VBG Lactate 4.2 H* Sodium Potassium Chloride Carbon Dioxide Anion Gap BUN Creatinine Est GFR (CKD-EPI 2020) Glucose Calcium Total Bilirubin AST ALT Alkaline Phosphatase Ammonia Total Protein Albumin TSH 5.48 H Free T4 1.41 Urine Color Urine Clarity Urine pH Ur Specific [place] Urine Protein Urine Ketones Urine Blood Urine Nitrite Urine Bilirubin Urine Urobilinogen Ur Leukocyte Esterase Urine RBC Urine WBC Ur Epithelial Cells Urine Crystals Urine Bacteria Urine Casts Urine Mucus Ur Culture Indicated? Urine Glucose Ethyl Alcohol COVID-19 Source SARS-CoV-2 (PCR) Influenza Type A (PCR) Influenza Type B (PCR) RSV (PCR) 06/13/22 06/14/22 22:40 00:40 WBC 5.99 RBC 4.30 Hgb 11.9 Hct 37.5 MCV 87 MCH 27.7 MCHC 31.7 L RDW 16.0 H Plt Count 371 MPV 9.6 Immature Gran % 0.3 Neutrophils % 50.0 Lymphocytes % 29.2 Monocytes % 11.9 Eosinophils % 6.8 Basophils % 1.8 Nucleated RBC % 0.0 Absolute Neutrophils 2.99 Absolute Lymphocytes 1.75 Absolute Monocytes 0.71 Absolute Eosinophils 0.41 Absolute Basophils 0.11 VBG pH VBG pCO2 VBG pO2 VBG HCO3 VBG Total CO2 VBG O2 Saturation VBG Base Excess VBG Lactate Sodium Potassium Chloride Carbon Dioxide Anion Gap BUN Creatinine Est GFR (CKD-EPI 2020) Glucose Calcium Total Bilirubin AST ALT Alkaline Phosphatase Ammonia Total Protein Albumin TSH Free T4 Urine Color Yellow Urine Clarity Clear Urine pH 6.0 Ur Specific [place] >= 1.030 H Urine Protein >=300 H Urine Ketones Trace H Urine Blood Negative Urine Nitrite Negative Urine Bilirubin Negative Urine Urobilinogen 0.2 Ur Leukocyte Esterase Negative Urine RBC Negative Urine WBC 0-2 Ur Epithelial Cells Few Urine Crystals Many Calcium Oxalate Urine Bacteria Rare Urine Casts 3-5 Hyaline Urine Mucus Negative Ur Culture Indicated? No Urine Glucose Negative Ethyl Alcohol COVID-19 Source SARS-CoV-2 (PCR) Influenza Type A (PCR) Influenza Type B (PCR) RSV (PCR) Last Vital Signs Temp 36.4 C L 06/14/22 02:15 Pulse 111 H 06/14/22 02:28 Resp 18 06/13/22 22:19 BP 182/78 H 06/14/22 02:28 Pulse Ox 96 06/14/22 02:30
[2022-06-14 07:13] LABS: Lactate 1.4 mmol/L (0.6-1.4)
[2022-06-14 07:20] LABS: Abs Immature Grans 0.01 10^3/uL (0.0-0.06); Absolute Basophil Count 0.09 10^3/uL (0.0-0.2); Absolute Eosinophil Count 0.37 10^3/uL (0.0-0.7); Absolute Lymphocyte Count 1.56 10^3/uL (1.2-3.4); Absolute Neutrophil Count 2.15 10^3/uL (1.2-6.7); Basophils % 1.8; Eosinophils % 7.6; HGB 9.7 g/dL (11.2-15.7); Immature Grans % 0.2; MCH 26.9 pg (27.0-33.0); MCHC 31.3 % (32.0-36.0); MCV 86 fL (80-95); MPV 9.6 fL (8.0-11.0); Monocytes % 14.3; Neutrophils % 44.1; Platelet Count 291 10^3/uL (130-400); RDW-SD 50.2 fL; WBC 4.88 10^3/uL (4.4-10.8)
[2022-06-14 07:26] LABS: Anion Gap 8.3 mmol/L (3-11); BUN 17 mg/dL (7-18); CO2 26.7 mmol/L (21.0-32.0); CREATININE 1.1 mg/dL (0.55-1.02); Calcium 9.3 mg/dL (8.5-10.1); Chloride 105 mmol/L (98-107); Estimated GFR 55.76 (mL/min/1.73m2); Glucose 126 mg/dL (74-106); Magnesium 1.3 mg/dL (1.8-2.4); Potassium 3.8 mmol/L (3.5-5.1); Sodium 140 mmol/L (136-145)
[2022-06-14] MEDS: Lactated Ringers 1,000 ML 200 ML IV (07:34)
[2022-06-14 07:38] VITALS: BP 144/64; PULSE 109; RESP 18; TEMP 36.4; O2SAT 90
[2022-06-14] MEDS: Insulin Glargine 300 UNITS/3 ML PEN 22 UNITS SC (07:42)
[2022-06-14] MEDS: Doxycycline Hyclate 100 MG CAP PO (07:52)
[2022-06-14] MEDS: Carvedilol 12.5 MG TAB PO (07:52)
[2022-06-14] MEDS: methylPREDNISolone 4 MG TAB PO (07:52)
[2022-06-14] MEDS: Folic Acid 1 MG TAB PO (07:52)
[2022-06-14] MEDS: Esomeprazole 40 MG CAPCR PO (07:52)
[2022-06-14] MEDS: Enoxaparin 40 MG/0.4 ML SYR SC (07:53)
[2022-06-14] MEDS: Insulin Aspart 300 UNITS/3 ML PEN SC ×2 (07:58→11:24)
[2022-06-14 08:25] VITALS: O2SAT 93
--- NOTE | 2022-06-14 08:25 | RESPIRATORY ---
RT spoke with patient concerning is she as oxygen at home, patient stated no she does not.
--- NOTE | 2022-06-14 08:42 | PDOC.CMIN ---
- If Service Date Differs Date of service: 06/14/22 Time of Service: 08:42 Care Management Initial Assess REASON FOR HOSPITALIZATION:: Acute confusion, Hypercalcemia, Renal insufficiency PAST MEDICAL HISTORY/PAST SURGICAL HISTORY:: All Active Problems . Discharge planning issues (Acute). DVT prophylaxis (Acute). Renal insufficiency (Chronic). Hypercalcemia (Acute). Polypharmacy (Acute). Bacteremia (Acute). Acute confusion (Acute). Bacteremia (Acute). Chronic pain (Chronic). Pneumonia (Acute). COVID (Acute). Cellulitis and abscess of foot (Acute). Contusion of right foot (Acute). Sepsis (Acute). Bone infection of left foot (Acute). Status post total left knee replacement (Acute). Pain (Acute). Lower extremity pain (Acute). Medical History . Bacteremia due to group B Streptococcus. Diabetes mellitus. Edema, peripheral. Psoriatic arthritis. Surgical History . History of left knee replacement. s/p revision for infected prosthesis PREVIOUS FUNCTIONAL STATUS/SOCIAL/FAMILY SUPPORTS:: Michelle lives in [place] with her [place]. 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 Michelle has adult children however, they do not live locally. Michelle no longer drives, her provides all her transportation. Michelle shares that her mobility level fluctuates, and she sometimes uses a walker, wheelchair and has a scooter. Michelle's home is very well set up to her mobility needs. She reports that she has a ramp, shower chair and commode. CURRENT FUNCTIONAL STATUS:: Michelle was lying in bed when CM met with her. She is awake, alert, oriented and easily engages in conversation. Michelle shares that she has intense pain in her leg, feet and back. Per patient, she is always in pain. Michelle shares that she is due for more pain medication at 10:00. ADVANCE DIRECTIVES:: None on file, CM will offer forms. Has patient been provided with info about the portal/API?: Yes Did the patient sign up for the portal?: No CODE STATUS:: Full Code INSURANCE COVERAGE / FINANCIAL ISSUES:: [facility]/[employer]. Medicare. Financial Assist 75 CURRENT HOME/COMMUNITY SERVICES/EQUIPMENT:: Ramp, commode, wheelchair, Walker, shower chair, scooter. Per pt, she receives services through the [employer] [facility]. in [facility] Michelle is familiar with [facility] and services they offer such as MOW. She is not interested in a referral at this time. PRIMARY CARE PHYSICIAN:: Chito Brunner POTENTIAL DISCHARGE NEEDS:: Discharge plan of care, follow up appointment, assessment for increased community support. New [facility] services, if indicated. PATIENT/FAMILY EDUCATION NEEDS:: Review discharge instructions, limitations, medications and plan to follow up with community providers. Discuss ask me three. TRANSPORTATION:: Via private vehicle with family. PLAN:: Anticipate, Michelle will discharge home via private vehicle with family. Pt will follow up with community providers and discharge plan of care as prescribed. CM will continue to follow.
--- NOTE | 2022-06-14 10:39 | DSE_ITS ---
Date of service: 06/14/22 Time of Service: 10:40 DS: Diagnosis Discharge Diagnosis (1) Acute confusion: Status: Acute Asessment and Plan: Later in the morning, she felt back to her baseline and wished to go home. A questionable role of polypharmacy contributing, however, no new mades that would likely cause acute mental status changes. Hold cyclobenzaprine and diphenhydramine. Consider a lower dose of ambien or holding. (2) Polypharmacy: Status: Acute Asessment and Plan: As above. Difficult situation given her arthritis and foot pain. (3) Renal insufficiency: Status: Chronic Asessment and Plan: Mild azotemia with a BUN of 19 and a creatinine of 1.4. With hydration her BUN decreased to 17 and her creatinine to 1.1. Encourage ongoing adequate oral hydration. (4) Chronic pain: Status: Chronic Asessment and Plan: No changes in pain management meds other than stopping cyclobenzaprine. This could be adressed with her PCP to see if there is a less sedating alternate for her. (5) Diabetes mellitus: (6) Psoriatic arthritis: Asessment and Plan: Recent A1c of 6.1 No changes. (7) Bone infection of left foot: Status: Acute Asessment and Plan: No evidence of bacteremia. (8) Hypercalcemia: Status: Acute Asessment and Plan: Ca on admission was 10.6 With IV hydration, the Ca normalized to 9.3. Discharge Plan Disposition Patient Disposition: HOME Condition: Improving Discharge Details Reason For Visit: Bacteremia Admit Date/Time: 06/14/22 01:23 Admit Provider: Jorge Graham Attending Provider: Jorge Graham Primary Care Provider: Chito Brunner Hospital Course Hospital Course: 66 yo F with psoriatic arthritis on leflunomide and chroinc corticosteroids, chronic pain on opioids as well as multiple anticholinergic and sedating medications, type 2 diabetes on basal bolus insulin with recent hgb A1c of 6.1%, and recent admission 05/10- with COVID pneumonia, who is presenting with worsening of confusion that has been noted for the past 3 days.? She reported to me difficulty finding words and remembering things, feeling cloudy headed.? Per 's report he brought her in today because she didn't know where her toothbrush was or how to brush her teeth.? In my interview she did say she has one new medication, but couldn't remember the name or what it was for.? She hasn't felt sick lately other than confusion.? No fever, no new pain.? She has been eating and drinking.? She does endorse feeling chilled, but no shaking rigors.? No cough or new difficulty breathing.? No urine or bowel changes.? No headache.? During her 05/10- admission she was treated for COVID with remdesavir and pneumonia with levofloxacin.? She was never hypoxic.? Concern for acute infection in the emergency room mostly based on her lactate and her history, but further assessment has not revealed any source of infection.? CT not consistent with pneumonia, urinalysis not infected, no fever or white count.?? See Diagnosis PCP f/u next week. Home Meds and New Rx's Prescriptions: Continued insulin glargine [Lantus U-100 Insulin] 100 UNIT/ML solution 24 units Sub-Q DAILY AM albuterol sulfate 3 ML solution for nebulization 1 unit Inhalation QID PRN Label Comments: 02/10/14- pt has not used for months, per pt methylprednisolone 4 MG tablet 4 mg PO DAILY leflunomide [Arava] 20 MG tablet 20 mg PO DAILY esomeprazole magnesium [Nexium] 40 MG capsule,delayed release(DR/EC) 40 mg PO DAILY folic acid 1 MG tablet 1 mg PO DAILY zolpidem 10 MG tablet 10 mg PO HS calcium carbonate-vitamin D3 [Calcium 600 + D(3)] 1 EACH tablet 1 tab PO BID carvedilol 12.5 mg tablet 12.5 mg PO BID Label Comments: Take 1 tablet by mouth 2 times daily with meals. doxycycline hyclate 100 mg capsule 100 mg PO BID Rx Instructions: Pt reports supposed to take through the end of May for leg surgery ondansetron HCl 4 mg tablet 4 mg PO Q8H PRN PRN metoclopramide HCl 5 mg tablet 5 mg PO TID Rx Instructions: 30 minutes before meals; 30 day supply filled on 05/07/22, pt unsure if she takes this montelukast 10 mg tablet 10 mg PO DAILY AM Label Comments: TAKE ONE TABLET BY MOUTH ONE TIME DAILY Rx Instructions: Pt reports taking in the am oxycodone 5 mg tablet 5 - 10 mg PO Q6H PRN PRN Label Comments: As Needed for pain for 7 days; 1 - 2 tabs orally every 6 hours PRN; ascorbic acid (vitamin C) 500 mg Tablet See Rx Instructions .ROUTE .COMPLEX Rx Instructions: 1 dose po qday; pt unable to remember strength of OTC she uses albuterol sulfate [Ventolin HFA] 90 mcg/actuation Hfa Aerosol Inhaler 2 puff inhalation Q4H PRN PRNQty: 8.5 0RF benzonatate 100 mg Capsule 100 mg PO TID PRN PRN (Reason: Cough) Qty: 20 0RF Combivent Respimat 20-100 mcg/actuation Mist 1 puff inhalation QID Qty: 4 0RF levofloxacin 750 mg Tablet 750 mg PO QAM Qty: 3 0RF aspirin 81 mg Tablet,Chewable 81 mg PO DAILY Multi Vitamin 9 mg iron/15 mL Liquid 1 mg PO DAILY insulin lispro [Humalog KwikPen Insulin] 100 unit/mL Insulin Pen See Rx Instructions .ROUTE .COMPLEX Rx Instructions: Original sig- 10 units+SS sc tid with meals. Pt often skips breakfast and lunch dosing due to BG in range, normally injects 14 units sc with evening meal Discontinued cyclobenzaprine 10 mg tablet 10 mg PO TID PRN (Reason: Muscle Spasm) Rx Instructions: Pt reports using this q-4-6h diphenhydramine HCl [Benadryl] 25 mg Capsule 50 mg PO Q6H PRN PRN (Reason: Allergic Reaction) Rx Instructions: Pt reports taking 50 mg po c each opioid dose Discharge Instructions Activity:: Activity as Tolerated Equipment/Supplies:: No Equipment Needed Diet:: Resume usual diet Discharge Orders Discharge Orders: Discharge Order (Routine); Ordered 06/14/22 Ordered By: Harjit John Discharge Data Discharge Date/Time-TO BE ENTERED AT DEPARTURE: 06/14/22 13:28 Discharge Comment: Patient at baseline and happy to be going home. DS: Summary Time Spent with Patient providing and/or coordinating discharge services: Greater than 30 minutes Status at Discharge Functional status at discharge: independent ambulation Overall status at discharge: patient is progressing back to baseline Mental Status: mental status grossly normal Speech and Movement: speech clear Mood: congruent mood Affect: normal affect Exam Psych Mental Status: mental status grossly normal Speech and Movement: speech clear Mood: congruent mood Affect: normal affect DS: Data Vitals/I&O Vitals and I&O: Vital Signs Temperature 36.4 C L 06/14/22 07:38 Temperature Source Temporal Artery Scan 06/14/22 07:38 Pulse 109 H 06/14/22 07:38 Respiratory Rate 18 06/14/22 07:38 Respiratory Effort Non-Labored 06/14/22 02:15 Respiratory Depth Normal 06/14/22 02:15 Respiratory Pattern Normal 06/14/22 02:15 Blood Pressure 144/64 H 06/14/22 07:38 Blood Pressure Mean 94 06/14/22 04:01 Blood Pressure Position Supine 06/14/22 02:15 Pulse Oximetry 93 06/14/22 08:25 Oxygen Delivery Method Room Air 06/14/22 08:25 Oxygen Flow Rate 0 06/14/22 08:25 Pain Level 7 06/14/22 07:38 Intake & Output 06/13/22 06/13/22 06/14/22 11:59 23:59 11:59 Intake Total 1132 / 1132 Balance 1132 / 1132 Weight 99 kg 94.9 kg Intake: IV 790 / 790 Oral 342 / 342 Other: Urine Color Straw Urine Appearance Clear Data Completed and Pending Labs on day of discharge: Labs from last 24 hours 06/14/22 06/14/22 06/14/22 07:05 07:05 07:05 WBC 4.88 RBC 3.60 L Hgb 9.7 L D Hct 31.0 L MCV 86 MCH 26.9 L MCHC 31.3 L RDW 16.0 H Plt Count 291 MPV 9.6 Immature Gran % 0.2 Neutrophils % 44.1 Lymphocytes % 32.0 Monocytes % 14.3 Eosinophils % 7.6 Basophils % 1.8 Nucleated RBC % 0.0 Absolute Neutrophils 2.15 Absolute Lymphocytes 1.56 Absolute Monocytes 0.70 Absolute Eosinophils 0.37 Absolute Basophils 0.09 VBG pH VBG pCO2 VBG pO2 VBG HCO3 VBG Total CO2 VBG O2 Saturation VBG Base Excess VBG Lactate 1.4 Sodium Potassium Chloride Carbon Dioxide Anion Gap BUN Creatinine Est GFR (CKD-EPI 2020) Glucose Calcium Magnesium Total Bilirubin AST ALT Alkaline Phosphatase Ammonia Total Protein Albumin 25-OH Vitamin D Total Pending TSH Free T4 Urine Color Urine Clarity Urine pH Ur Specific [place] Urine Protein Urine Ketones Urine Blood Urine Nitrite Urine Bilirubin Urine Urobilinogen Ur Leukocyte Esterase Urine RBC Urine WBC Ur Epithelial Cells Urine Crystals Urine Bacteria Urine Casts Urine Mucus Ur Culture Indicated? Urine Glucose Ethyl Alcohol COVID-19 Source SARS-CoV-2 (PCR) Influenza Type A (PCR) Influenza Type B (PCR) RSV (PCR) 06/14/22 06/14/22 06/13/22 07:05 00:40 22:40 WBC 5.99 RBC 4.30 Hgb 11.9 Hct 37.5 MCV 87 MCH 27.7 MCHC 31.7 L RDW 16.0 H Plt Count 371 MPV 9.6 Immature Gran % 0.3 Neutrophils % 50.0 Lymphocytes % 29.2 Monocytes % 11.9 Eosinophils % 6.8 Basophils % 1.8 Nucleated RBC % 0.0 Absolute Neutrophils 2.99 Absolute Lymphocytes 1.75 Absolute Monocytes 0.71 Absolute Eosinophils 0.41 Absolute Basophils 0.11 VBG pH VBG pCO2 VBG pO2 VBG HCO3 VBG Total CO2 VBG O2 Saturation VBG Base Excess VBG Lactate Sodium 140 Potassium 3.8 Chloride 105 Carbon Dioxide 26.7 Anion Gap 8.3 BUN 17 Creatinine 1.1 H Est GFR (CKD-EPI 2020) 55.76 Glucose 126 H Calcium 9.3 Magnesium 1.3 L Total Bilirubin AST ALT Alkaline Phosphatase Ammonia Total Protein Albumin 25-OH Vitamin D Total TSH Free T4 Urine Color Yellow Urine Clarity Clear Urine pH 6.0 Ur Specific [place] >= 1.030 H Urine Protein >=300 H Urine Ketones Trace H Urine Blood Negative Urine Nitrite Negative Urine Bilirubin Negative Urine Urobilinogen 0.2 Ur Leukocyte Esterase Negative Urine RBC Negative Urine WBC 0-2 Ur Epithelial Cells Few Urine Crystals Many Calcium Oxalate Urine Bacteria Rare Urine Casts 3-5 Hyaline Urine Mucus Negative Ur Culture Indicated? No Urine Glucose Negative Ethyl Alcohol COVID-19 Source SARS-CoV-2 (PCR) Influenza Type A (PCR) Influenza Type B (PCR) RSV (PCR) 06/13/22 06/13/22 06/13/22 22:40 22:40 22:40 WBC RBC Hgb Hct MCV MCH MCHC RDW Plt Count MPV Immature Gran % Neutrophils % Lymphocytes % Monocytes % Eosinophils % Basophils % Nucleated RBC % Absolute Neutrophils Absolute Lymphocytes Absolute Monocytes Absolute Eosinophils Absolute Basophils VBG pH 7.26 L VBG pCO2 59 H VBG pO2 33 VBG HCO3 26 VBG Total CO2 25 VBG O2 Saturation 54 VBG Base Excess -1 VBG Lactate 4.2 H* Sodium Potassium Chloride Carbon Dioxide Anion Gap BUN Creatinine Est GFR (CKD-EPI 2020) Glucose Calcium Magnesium Total Bilirubin AST ALT Alkaline Phosphatase Ammonia Total Protein Albumin 25-OH Vitamin D Total TSH 5.48 H Free T4 1.41 Urine Color Urine Clarity Urine pH Ur Specific [place] Urine Protein Urine Ketones Urine Blood Urine Nitrite Urine Bilirubin Urine Urobilinogen Ur Leukocyte Esterase Urine RBC Urine WBC Ur Epithelial Cells Urine Crystals Urine Bacteria Urine Casts Urine Mucus Ur Culture Indicated? Urine Glucose Ethyl Alcohol COVID-19 Source SARS-CoV-2 (PCR) Influenza Type A (PCR) Influenza Type B (PCR) RSV (PCR) 06/13/22 06/13/22 06/13/22 22:40 22:40 22:36 WBC RBC Hgb Hct MCV MCH MCHC RDW Plt Count MPV Immature Gran % Neutrophils % Lymphocytes % Monocytes % Eosinophils % Basophils % Nucleated RBC % Absolute Neutrophils Absolute Lymphocytes Absolute Monocytes Absolute Eosinophils Absolute Basophils VBG pH VBG pCO2 VBG pO2 VBG HCO3 VBG Total CO2 VBG O2 Saturation VBG Base Excess VBG Lactate Sodium 139 Potassium 4.0 Chloride 99 Carbon Dioxide 28.2 Anion Gap 11.8 H BUN 19 H Creatinine 1.4 H Est GFR (CKD-EPI 2020) 41.75 Glucose 131 H Calcium 10.6 H Magnesium Total Bilirubin 0.6 AST 39 H ALT 32 Alkaline Phosphatase 178 H Ammonia < 10 L Total Protein 7.8 Albumin 3.6 25-OH Vitamin D Total TSH Free T4 Urine Color Urine Clarity Urine pH Ur Specific [place] Urine Protein Urine Ketones Urine Blood Urine Nitrite Urine Bilirubin Urine Urobilinogen Ur Leukocyte Esterase Urine RBC Urine WBC Ur Epithelial Cells Urine Crystals Urine Bacteria Urine Casts Urine Mucus Ur Culture Indicated? Urine Glucose Ethyl Alcohol < 3.0 COVID-19 Source Nasopharynx SARS-CoV-2 (PCR) Negative Influenza Type A (PCR) Negative Influenza Type B (PCR) Negative RSV (PCR) Negative 06/13/22 23:42 Blood Blood Culture - Pending 06/13/22 22:40 Blood Blood Culture - Pending Preliminary micro results at discharge 06/13/22 23:42 Blood Culture - Pending Blood 06/13/22 22:40 Blood Culture - Pending Blood PFSH All Active Problems Discharge planning issues (Acute) DVT prophylaxis (Acute) Renal insufficiency (Chronic) Hypercalcemia (Acute) Polypharmacy (Acute) Bacteremia (Acute) Acute confusion (Acute) Bacteremia (Acute) Chronic pain (Chronic) Pneumonia (Acute) COVID (Acute) Cellulitis and abscess of foot (Acute) Contusion of right foot (Acute) Sepsis (Acute) Bone infection of left foot (Acute) Status post total left knee replacement (Acute) Pain (Acute) Lower extremity pain (Acute) Medical History Bacteremia due to group B Streptococcus Diabetes mellitus Edema, peripheral Psoriatic arthritis Surgical History History of left knee replacement s/p revision for infected prosthesis Social History Smoking/Tobacco Use Status: Never Smoking risk assessment performed?: Yes Alcohol Intake: current Alcohol Intake frequency: holidays/special occasions only Drug use: Never Substance use type: does not use Do you feel safe at home: Yes Do you feel safe in your relationship?: Yes Additional Social history: Lives with in [place]. 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
[2022-06-17 05:41] LABS: Vitamin D 25 Total 24.3 ng/mL (30-100)
== END 2022-06-14 13:28 | disposition home or self-care (01) | DRG 948 ==
LOC: ER 06-14 01:59 → ICU 06-14 02:19
PROVIDERS: Admitting Provider Family Medicine; Emergency Provider Student in an Organized Health Care Education/Training Program; PCP Nurse Practitioner; Visit Provider Family Medicine
DX: R41.0 Disorientation, unspecified (principal); T50.995A Adverse effect of other drugs, medicaments and biological substances, initial encounter; N18.9 Chronic kidney disease, unspecified; G89.29 Other chronic pain; L40.50 Arthropathic psoriasis, unspecified; E83.52 Hypercalcemia; Z79.52 Long term (current) use of systemic steroids; Z79.891 Long term (current) use of opiate analgesic; Z79.4 Long term (current) use of insulin; E11.22 Type 2 diabetes mellitus with diabetic chronic kidney disease; Z86.16 Personal history of COVID-19; M79.672 Pain in left foot; M79.671 Pain in right foot
CPT/HCPCS: 36415; 51702; 71250; 80048; 80053; 82306; 82805; 87040; 87637; 93005; 96361; 96365; 96367; 99285; J1650; 70450; 80320; 81003; 81015; 82140; 83605; 83735; 84439; 84443; 85025; 93010; J7509

== ENCOUNTER 2022-09-24 01:42 | Outpatient (CLI) | payer MEDICARE, OTHER, SELFPAY ==
--- NOTE | 2022-09-24 11:02 | DI.MAMMO_ITS ---
Exam(s) MG MAMMO SCREENING 60 MIN DUR EXAM: MG MAMMO SCREENING 60 MIN DUR CLINICAL HISTORY: SCREENING, Z12.31 TECHNIQUE: Bilateral full field digital CC and MLO mammographic images were obtained with 3D tomosyn thesis and utilizing computer aided detection (CAD). COMPARISON: Available for comparison. FINDINGS: Masses/Architectural Distortion: None seen. Microcalcifications: No suspicious pleomorphic-type are seen. Skin Thickening/Nipple Retraction: None. IMPRESSION: 1. No significant interval change with no specific features of malignancy noted. 2. Unless there is more urgent need, screening mammography is recommended, as per [place] [employer] guidelines. BI-RADS Category 1 - Negative Breast Density - Category B - Scattered areas of fibroglandular density Breast density category C or D implies that the patient has dense breast tissue. Dense breast tissue is very common and is not abnormal but dense breast tissue can make it harder to find cancer on a ma mmogram. Also, dense breast tissue may increase their breast cancer risk. This information about the result of the mammogram report was provided to the patient to raise their awareness. Use this report when you speak with the patient about their risks for breast cancer, which includes their family hist ory. At that time, you may recommend for more screening tests (Ultrasound or MRI) as they might be us eful based on their risk. A negative radiographic report should not delay biopsy if a dominant or clinically suspicious mass is present. Up to ten percent of cancers are not identified on mammography. A negative report may reinforce clinical impression. Adenosis and dense breasts may obscure an underlying neoplasm. False positive reports average 6 to 10%. Patient will receive a letter notifying them of these results.
== END 2022-09-24 02:02 ==
PROVIDERS: PCP Nurse Practitioner; Visit Provider Nurse Practitioner
DX: Z12.31 Encounter for screening mammogram for malignant neoplasm of breast (principal)
CPT/HCPCS: 77063; 77067

== ENCOUNTER 2022-11-07 01:22 | Outpatient (CLI) | payer MEDICARE, OTHER, SELFPAY ==
--- NOTE | 2022-11-07 | DI.MRI_ITS ---
Exam(s) MR LOWER JOINT RT WO EXAM: MR LOWER JOINT RT WO CLINICAL HISTORY: RT KNEE PAIN,S/P TRAUMA,EFFUSION,TENDERNESS RT DISTAL FEMUR,M25.561. TECHNIQUE: Multiplanar multisequence MRI was performed. COMPARISON: CR Knee Right 3 Views from 06/27/2022 FINDINGS: Exam somewhat limited by patient motion. BONES: There is no fracture or contusion pattern. JOINTS: A moderate-sized joint effusion is present. Articular cartilage: Patellofemoral joint: Thinning of cartilage is and down to bone involving the m edial patellofemoral joint. Medial femoral tibial joint: Articular cartilage is unremarkable. Lateral femoral tibial joint: Articular cartilage is unremarkable. TENDONS: Extensor mechanism: Unremarkable. Medial retinaculum: Unremarkable. Lateral retinaculum: Unremarkable. Popliteus: Unremarkable. MUSCLES: Unremarkable. MENISCI: The medial meniscus is unremarkable. The lateral meniscus is unremarkable. SOFT TISSUES: Mild edema in the subcutaneous fat. LIGAMENTS: Anterior Cruciate: Unremarkable. Posterior Cruciate: Unremarkable. Medial Collateral:Unremarkable. Lateral Collateral: Unremarkable. OTHER: IMPRESSION: Limited exam due to motion. No ligament or meniscal tear seen. Joint effusion and patellar chondrom alacia noted. DATA REPOSITORY:
== END 2022-11-07 01:42 ==
LOC: DI 01:23
PROVIDERS: PCP Nurse Practitioner; Visit Provider Nurse Practitioner
DX: M25.561 Pain in right knee (principal); M25.461 Effusion, right knee; M22.41 Chondromalacia patellae, right knee; R60.0 Localized edema
CPT/HCPCS: 73721

== ENCOUNTER 2023-02-13 16:48 | Outpatient (REF) | payer MEDICARE, SELFPAY ==
[2023-02-13 20:30] LABS: HCT 36.1 % (36.0-46.0); HGB 11.7 g/dL (11.2-15.7); MCH 29.6 pg (27.0-33.0); MCHC 32.4 % (32.0-36.0); MCV 91 fL (80-95); MPV 11.1 fL (8.0-11.0); Platelet Count 304 10^3/uL (130-400); RBC 3.95 10^6/uL (3.93-5.22); RDW-SD 47.4 fL; WBC 6.62 10^3/uL (4.4-10.8)
[2023-02-13 20:47] LABS: Iron 62 ug/dL (50-170); Total Iron Binding Capacity 130 ug/dL (250-450); Transferrin Sat 48 % (15-50)
[2023-02-13 21:07] LABS: ALT 29 U/L (14-59); AST 17 U/L (15-37); Albumin 3.7 g/dL (3.4-5.0); Alkaline Phosphatase 95 U/L (46-116); BUN 27 mg/dL (7-18); Bilirubin, Total 0.5 mg/dL (0.2-1.0); CREATININE 1.3 mg/dL (0.55-1.02); Calcium 9.4 mg/dL (8.5-10.1); Calculated LDL 175 mg/dL (<100); Chloride 105 mmol/L (98-107); Cholesterol 289 mg/dL (<200); Estimated GFR 45.35 (mL/min/1.73m2); Glucose 280 mg/dL (74-106); HDL Cholesterol 54 mg/dL (40-60); Potassium 4.8 mmol/L (3.5-5.1); Sodium 141 mmol/L (136-145); Total Protein 6.9 g/dL (6.4-8.2); Triglyceride 300 mg/dL (<150); Vitamin B12 1895 pg/mL (193-986)
[2023-02-13 21:14] LABS: C-Reactive Protein 1.19 mg/dL (0.0-0.3)
== END 2023-02-13 16:49 | disposition home or self-care (01) ==
LOC: NCHCN 16:48
PROVIDERS: PCP Nurse Practitioner; Visit Provider Family Medicine
DX: E78.00 Pure hypercholesterolemia, unspecified (principal); E11.65 Type 2 diabetes mellitus with hyperglycemia; F19.20 Other psychoactive substance dependence, uncomplicated; I10 Essential (primary) hypertension; E55.9 Vitamin D deficiency, unspecified; M81.0 Age-related osteoporosis without current pathological fracture; I89.0 Lymphedema, not elsewhere classified
CPT/HCPCS: 80053; 80061; 82306; 85027; 82607; 83540; 83550; 83735; 86140

== ENCOUNTER 2023-02-17 20:32 | Emergency (ER) | payer MEDICARE, OTHER, SELFPAY ==
--- NOTE | 2023-02-17 20:30 | RT.EKG_ITS ---
APPROVED REPORT Exam: Resting ECG Reason for Exam: light headed Patient Location: E HR:91 bpm ECG Measurements Heart Rate 91 AXIS WY 155 P 51 QRSd 129 QRS -48 QT 393 T 92 QTc 484 Conclusion Sinus rhythm...normal P axis, V-rate 60- 99 RBBB and LAFB...QRSd >120mS, axis(-40,240) Probable LVH with secondary repol abnrm...multiple LVH criteria ST elevation, consider inferior injury...ST >0.08mV, II III aVF
[2023-02-17 20:44] VITALS: BP 220/70; PULSE 97; RESP 20; TEMP 36.6; O2SAT 99
--- NOTE | 2023-02-17 20:45 | DI.RAD_ITS ---
Exam(s) XR CHEST 2V PA LATERAL EXAM: XR CHEST 2V PA LATERAL CLINICAL HISTORY: hypertension TECHNIQUE: 2D digital imaging was performed. COMPARISON: CT CT CHEST WO from 06/13/2022 FINDINGS: HEART: Normal size. Aorta: Not dilated. PULMONARY VASCULATURE: Normal. LUNGS: Clear. PLEURAL SPACE: No pleural effusion or pneumothorax. BONE:Unremarkable for age. IMPRESSION: No acute abnormality. DATA REPOSITORY: RADIATION DOSE DELIVERED:
--- NOTE | 2023-02-17 20:45 | DI.CT_ITS ---
Exam(s) CT HEAD WO EXAM: CT HEAD WO CLINICAL HISTORY: blurry vision, hypertension. TECHNIQUE: Imaging Protocol: Axial computed tomography images with coronal and sagittal reformatted images were created and reviewed COMPARISON: CT CT HEAD WO from 06/13/2022 FINDINGS: Ventricles and Extra axial spaces: Normal in size and morphology for the patient's age. Hemorrhage: None. Cerebral parenchyma: Normal. Midline shift: None. Brainstem/Cerebellum: Normal. Calvarium: Normal. Visualized Paranasal sinuses/Mastoids: Minimal mucosal thickening floor maxillary sinuses. Soft Tissues: Unremarkable. IMPRESSION: No acute intracranial process. RADIATION DOSE DELIVERED: 1,010.35mGy.cm Total DLP DATA REPOSITORY: All CT scans at this facility are submitted to the National Radiology Data Registry (NRDR) Dose Index Registry (DIR) with the [place] [employer] (A[employer]). RADIATION OPTIMIZATION: All CT scans at this facility use at least one of these dose optimization te chniques: automated exposure control; mA and/or kV adjustment per patient size (includes targeted exa ms where dose is matched to clinical indication); or iterative reconstruction.
[2023-02-17 21:01] LABS: Abs Immature Grans 0.03 10^3/uL (0.0-0.06); Absolute Lymphocyte Count 2.47 10^3/uL (1.2-3.4); Absolute Monocyte Count 0.87 10^3/uL (0.1-0.8); Absolute Neutrophil Count 5.02 10^3/uL (1.2-6.7); Basophils % 1.2; Eosinophils % 1.2; HCT 41.2 % (36.0-46.0); HGB 13.6 g/dL (11.2-15.7); Immature Grans % 0.3; Lymphocytes % 28.8; MCH 29.6 pg (27.0-33.0); MCV 90 fL (80-95); MPV 9.7 fL (8.0-11.0); Monocytes % 10.1; Neutrophils % 58.4; Platelet Count 322 10^3/uL (130-400); RBC 4.59 10^6/uL (3.93-5.22); RDW 13.8 % (11.7-14.6); RDW-SD 45.1 fL; WBC 8.59 10^3/uL (4.4-10.8)
[2023-02-17] MEDS: Normal Saline 1,000 ML 1000 ML IV (21:05)
[2023-02-17] MEDS: Ondansetron 4 MG/2 ML VIAL IVP (21:05)
--- NOTE | 2023-02-17 21:14 | W.ED.GENAD ---
Discharge Plan Disposition Patient Disposition: Home Condition: Stable Discharge Details Clinical Impression: Hypertension Primary Care Provider: Melissa Garcia ED Provider: Williams Starr Home Meds and New Rx's Prescriptions: Continued insulin glargine [Lantus U-100 Insulin] 100 UNIT/ML solution 24 units Sub-Q DAILY AM albuterol sulfate 3 ML solution for nebulization 1 unit Inhalation QID PRN Patient Comments: 02/10/14- pt has not used for months, per pt methylprednisolone 4 MG tablet 4 mg PO DAILY leflunomide [Arava] 20 MG tablet 20 mg PO DAILY esomeprazole magnesium [Nexium] 40 MG capsule,delayed release(DR/EC) 40 mg PO DAILY folic acid 1 MG tablet 1 mg PO DAILY zolpidem 10 MG tablet 10 mg PO HS calcium carbonate-vitamin D3 [Calcium 600 + D(3)] 1 EACH tablet 1 tab PO BID carvedilol 12.5 mg tablet 12.5 mg PO BID Patient Comments: Take 1 tablet by mouth 2 times daily with meals. doxycycline hyclate 100 mg capsule 100 mg PO BID Rx Instructions: Pt reports supposed to take through the end of May for leg surgery ondansetron HCl 4 mg tablet 4 mg PO Q8H PRN PRN metoclopramide HCl 5 mg tablet 5 mg PO TID Rx Instructions: 30 minutes before meals; 30 day supply filled on 05/07/22, pt unsure if she takes this montelukast 10 mg tablet 10 mg PO DAILY AM Patient Comments: TAKE ONE TABLET BY MOUTH ONE TIME DAILY Rx Instructions: Pt reports taking in the am oxycodone 5 mg tablet 5 - 10 mg PO Q6H PRN PRN Patient Comments: As Needed for pain for 7 days; 1 - 2 tabs orally every 6 hours PRN; ascorbic acid (vitamin C) 500 mg Tablet See Rx Instructions .ROUTE .COMPLEX Rx Instructions: 1 dose po qday; pt unable to remember strength of OTC she uses albuterol sulfate [Ventolin HFA] 90 mcg/actuation Hfa Aerosol Inhaler 2 puff inhalation Q4H PRN PRNQty: 8.5 0RF benzonatate 100 mg Capsule 100 mg PO TID PRN PRN (Reason: Cough) Qty: 20 0RF Combivent Respimat 20-100 mcg/actuation Mist 1 puff inhalation QID Qty: 4 0RF levofloxacin 750 mg Tablet 750 mg PO QAM Qty: 3 0RF aspirin 81 mg Tablet,Chewable 81 mg PO DAILY Multi Vitamin 9 mg iron/15 mL Liquid 1 mg PO DAILY insulin lispro [Humalog KwikPen Insulin] 100 unit/mL Insulin Pen See Rx Instructions .ROUTE .COMPLEX Rx Instructions: Original sig- 10 units+SS sc tid with meals. Pt often skips breakfast and lunch dosing due to BG in range, normally injects 14 units sc with evening meal Discharge Instructions Instructions: Hypertension (ED) Additional Instructions: your blood work and imaging did not show concerning findings at this time follow up with your primary care provider within 1-2 weeks. I do recommend in the mean time increasing your lisinopril to 20mg daily if you feel more ill, have severe chest pain or difficulty breathing return to the emergency department Medical Decision Making 67 yo female with hx of HTN, DM, who comes in with cc of general malaise and high blood pressure for 4 days and intermittent feeling like she has blurred vision. She denies chest pain, fevers, dyspnea, abdominal pain, does have nausea but states this is a chronic issue for her. She goes to the [facility] [place] for spinal injections and in November of this year went to see them and was referred to the [facility] [place] ED for BP's in the 240's systolic. While there she had chest pain and had negative serial troponins and ekgs and had a pharmacological stress test that showed no ischemia. She has continued to have issues with her bp. She arrives hypertensive with bp 220/89 on my initial exam. She has no focal motor deficits, CN II-XII are intact, she has clearspeech, nih of 0. She has clear lungs, equal peripheral pulses bilaterally, no abdominal tenderness. Unclear etiology for her symptoms though they seem chronic since it's been going on since November, will proceed with cbc, cmp, ekg/troponin, cxr and ekg/troponin. She has no deficits on exam to suggest cva but given her weakness complaint and blurry vision she's had intermittently will obtain ct head. imaging and labs unremarkable, pt stable and has no complaints now. Discussed results with pt and offered obs admission but given she is asymptomatic and has no deficits on exam she declines which I feel is reasonable. I did recommend increasing her lisinopril to 20mg and discussing this further with her pcp. Return precautions given Differential Diagnosis Differential Diagnosis: electrolyte abnormality, uti, hypertension Medical Records Medical records reviewed: Yes I reviewed the patient's medical records. Imaging Data Radiologic Study: Attestation: I personally reviewed and interpreted this imaging study as follows: Imaging: X-Ray My impression: no acute findings Radiologic Study #2: Attestation: I personally reviewed and interpreted this imaging study as follows: Imaging: CT Scan Radiologist's impression: no acute findings Lab Data Lab results reviewed: Yes I reviewed the patient's lab results. ECG Data Attestation: I personally reviewed and interpreted this ECG (s) as follows: Prior ECG tracings: available for review Interpretation: sinus rate of 91, pr 155, no acute ischemic findings compared to prior ekg HPI General Mode of arrival: ambulatory. Date/Time Provider Initiated Documentation: 02/17/23 20:41. Limitations to Documentation: no limitations. Information obtained by: patient. History of Present Illness 67 year old F presents to the emergency department with the chief complaint of high blood pressure, described as moderate, Patient started experiencing this day(s) (4) and it has been constant. No relieving factors improve symptom(s), No exacerbating factors reported . Patient notes denies confusion. Patient did receive the following treatments prior to arrival, none Related Data Home Medications Medication Instructions Recorded Confirmed albuterol sulfate 2.5 mg/3 mL 1 unit inhalation QID PRN 01/11/14 02/17/23 (0.083 %) solution for nebulization calcium carbonate 600 mg-vitamin 1 tab PO BID 01/11/14 02/17/23 D3 10 mcg (400 unit) tablet (Calcium 600 + D(3)) esomeprazole magnesium 40 mg 40 mg PO DAILY 01/11/14 02/17/23 capsule,delayed release (Nexium) folic acid 1 mg tablet 1 mg PO DAILY 01/11/14 02/17/23 insulin glargine 100 unit/mL 24 units subcut DAILY AM 01/11/14 06/13/22 subcutaneous solution (Lantus U-100 Insulin) leflunomide 20 mg tablet (Arava) 20 mg PO DAILY 01/11/14 02/17/23 methylprednisolone 4 mg tablet 4 mg PO DAILY 01/11/14 02/17/23 zolpidem 10 mg tablet 10 mg PO HS 01/11/14 02/17/23 aspirin 81 mg chewable tablet 81 mg PO DAILY 04/09/19 02/17/23 insulin lispro 100 unit/mL See Rx Instructions .Route .COMPLEX 04/09/19 02/17/23 subcutaneous pen (Humalog KwikPen (U-100) Insulin) multivitamin with minerals-iron 1 mg PO DAILY 04/09/19 02/17/23 fumarate 9 mg iron/15 mL oral liquid (Multi Vitamin) carvedilol 12.5 mg tablet 12.5 mg PO BID 02/26/22 02/17/23 ascorbic acid (vitamin C) 500 mg See Rx Instructions .Route .COMPLEX 05/10/22 02/17/23 tablet doxycycline hyclate 100 mg capsule 100 mg PO BID 05/10/22 02/17/23 metoclopramide HCl 5 mg tablet 5 mg PO TID 05/10/22 02/17/23 montelukast 10 mg tablet 10 mg PO DAILY AM 05/10/22 02/17/23 ondansetron HCl 4 mg tablet 4 mg PO Q8H PRN PRN 05/10/22 02/17/23 oxycodone 5 mg tablet 5 - 10 mg PO Q6H PRN PRN 05/10/22 02/17/23 albuterol sulfate 90 mcg/actuation 2 puff inhalation Q4H PRN PRN #8.5 05/13/22 02/17/23 aerosol inhaler (Ventolin HFA) grams benzonatate 100 mg capsule 100 mg PO TID PRN PRN Cough #20 05/13/22 06/13/22 caps ipratropium 20 mcg-albuterol 100 1 puff inhalation QID #4 grams 05/13/22 06/13/22 mcg/actuation mist for inhalation (Combivent Respimat) levofloxacin 750 mg tablet 750 mg PO QAM #3 tabs 05/13/22 02/17/23 Previous Rx's Medication Instructions Recorded albuterol sulfate 90 mcg/actuation 2 puff inhalation Q4H PRN PRN #8.5 05/13/22 aerosol inhaler (Ventolin HFA) grams benzonatate 100 mg capsule 100 mg PO TID PRN PRN Cough #20 05/13/22 caps ipratropium 20 mcg-albuterol 100 1 puff inhalation QID #4 grams 05/13/22 mcg/actuation mist for inhalation (Combivent Respimat) levofloxacin 750 mg tablet 750 mg PO QAM #3 tabs 05/13/22 Allergies Allergy/AdvReac Type Severity Reaction Status Date / Time capsaicin Allergy Severe Anaphylaxsi Unverified 02/17/23 22:18 s clarithromycin [From Biaxin] Allergy Intermediate Skin Rash Unverified 02/17/23 22:18 Penicillins Allergy Intermediate Skin Rash Unverified 02/17/23 22:18 Sulfa (Sulfonamide Allergy Intermediate Skin Rash Unverified 02/17/23 22:18 Antibiotics) nickel Allergy Mild Itching Unverified 02/17/23 22:18 General Stated Complaint: [facility] ARABELLA: 3 Review of Systems All systems reviewed & are unremarkable except as noted in HPI and below Constitutional Constitutional: Denies chills, Denies fever(s) and Denies weakness Cardiovascular Cardiovascular: Denies chest pain and Denies dyspnea Respiratory Respiratory: Denies cough and Denies dyspnea Gastrointestinal Gastrointestinal: Denies abdominal pain and Denies vomiting Genitourinary Genitourinary: Denies dysuria Musculoskeletal Musculoskeletal: Denies joint swelling Integumentary/Breasts Skin/Breast: Denies rash Neurologic Neurologic: Denies weakness PFSH All Active Problems (Updated 02/17/23 @ 22:29 by Williams Starr MD) Hypertension (Chronic) Renal insufficiency (Chronic) Polypharmacy (Acute) Bacteremia (Acute) Chronic pain (Chronic) Pneumonia (Acute) COVID (Acute) Cellulitis and abscess of foot (Acute) Contusion of right foot (Acute) Sepsis (Acute) Bone infection of left foot (Acute) Status post total left knee replacement (Acute) Pain (Acute) Lower extremity pain (Acute) Medical History Bacteremia due to group B Streptococcus Diabetes mellitus Edema, peripheral Psoriatic arthritis Surgical History 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 Exam Const General: no acute distress Orientation: alert HENMD Head: normal to inspection Ears: external ears normal General nose exam: external nose normal Mouth: moist mucous membranes Eyes General: appearance normal, both eyes and all related structures Neck Neck: normal visual inspection Resp Effort & Inspection: normal respiratory effort and able to speak in complete sentences Cardio Jugular venous pressure: no JVD Rate: regular rate Heart Sounds: no murmurs GI Palpation: soft and nontender Skin General skin exam: no rashes or lesions noted Neuro General: patient alert and patient oriented x3 Cranial Nerves: CN's II-XI intact bilaterally Cognition: normal cognition Speech: speech normal Gait: normal gait Motor: muscle tone normal throughout Sensory Exam: no sensory deficits noted Extrem General: normal to inspection Psych Mental Status: mental status grossly normal Course Vital Signs Vital signs: Vital Signs Temperature 36.6 C 02/17/23 20:44 Pulse 97 H 02/17/23 20:44 Respiratory Rate 20 02/17/23 20:44 Blood Pressure 220/70 H 02/17/23 20:44 Pulse Oximetry 99 02/17/23 20:44 Temperature 36.6 C 02/17/23 20:44 Temperature Source Oral 02/17/23 20:44 Pulse 97 H 02/17/23 20:44 Respiratory Rate 20 02/17/23 20:44 Respiratory Effort Normal 02/17/23 20:48 Blood Pressure 220/70 H 02/17/23 20:44 Blood Pressure Position Sitting 02/17/23 20:44 Pulse Oximetry 99 02/17/23 20:44 Oxygen Delivery Method Room Air 02/17/23 20:44 Oxygen Flow Rate 0 02/17/23 20:44 Lab/Test Results Lab/Test Results: Laboratory Tests Range/Units 02/17/23 20:50 WBC (4.4-10.8) 10^3/uL 8.59 RBC (3.93-5.22) 10^6/uL 4.59 Hgb (11.2-15.7) g/dL 13.6 Hct (36.0-46.0) % 41.2 MCV (80-95) fL 90 MCH (27.0-33.0) pg 29.6 MCHC (32.0-36.0) % 33.0 RDW (11.7-14.6) % 13.8 Plt Count (130-400) 10^3/uL 322 MPV (8.0-11.0) fL 9.7 Immature Gran % 0.3 Neutrophils % 58.4 Lymphocytes % 28.8 Monocytes % 10.1 Eosinophils % 1.2 Basophils % 1.2 Nucleated RBC % (0.0-0.3) % 0.0 Absolute Neutrophils (1.2-6.7) 10^3/uL 5.02 Absolute Lymphocytes (1.2-3.4) 10^3/uL 2.47 Absolute Monocytes (0.1-0.8) 10^3/uL 0.87 H Absolute Eosinophils (0.0-0.7) 10^3/uL 0.10 Absolute Basophils (0.0-0.2) 10^3/uL 0.10
[2023-02-17 21:15] LABS: INR 0.9 (0.9-1.1); Prothrombin Time 9.5 sec (9.3-11.0)
[2023-02-17 21:25] LABS: ALT 29 U/L (14-59); AST 19 U/L (15-37); Albumin 3.8 g/dL (3.4-5.0); Alkaline Phosphatase 98 U/L (46-116); Anion Gap 11.3 mmol/L (3-11); BUN 25 mg/dL (7-18); Bilirubin, Total 0.5 mg/dL (0.2-1.0); CO2 26.7 mmol/L (21.0-32.0); CREATININE 1.2 mg/dL (0.55-1.02); Calcium 9.8 mg/dL (8.5-10.1); Chloride 101 mmol/L (98-107); Estimated GFR 49.92 (mL/min/1.73m2); Glucose 95 mg/dL (74-106); Magnesium 1.7 mg/dL (1.8-2.4); Potassium 3.9 mmol/L (3.5-5.1); Sodium 139 mmol/L (136-145); TSH (W/Ref FT4) 0.94 uIU/mL (0.36-3.74); Total Protein 7.8 g/dL (6.4-8.2); Troponin I < 50 ng/L (<or=60)
[2023-02-17 21:38] LABS: BE (Venous) 2 mmol/L (-2-3); HCO3 (Venous) 27 mmol/L (23-28); O2 Sat (Venous) 77 %; TCO2 (Venous) 24 mmol/L (24-29); pCO2 (Venous) 46 mmHg (41-51); pH (Venous) 7.38 (7.31-7.41); pO2 (Venous) 43 mmHg
[2023-02-17 21:41] LABS: Bilirubin Negative (Negative); Blood Trace-intact (Negative); Clarity Sl Cloudy (Clear); Glucose Negative (Negative); Ketones Negative (Negative); Leukocyte Esterase Negative (Negative); Nitrite Negative (Negative); Specific Gravity 1.015 (1.005-1.025); Urobilinogen 0.2 mg/dL (Up to 0.2); pH 5.5 (5-8)
[2023-02-17 21:48] LABS: WBC 0-2 HPF (0-5)
[2023-02-17 21:49] LABS: Bacteria Rare HPF (Negative); C & S Indicated? No; Casts Negative LPF (Negative); Crystals Negative HPF (Negative); Epithelial Cells Many HPF (Negative); Mucus Negative (Negative)
--- NOTE | 2023-02-17 22:16 | DI.VRAD_ITS ---
PROCEDURE INFORMATION: Exam: XR Chest Exam date and time: 02/17/2023 10:06 PM Age: 67 years old Clinical indication: Other: Hypertension TECHNIQUE: Imaging protocol: Radiologic exam of the chest. Views: 2 views. COMPARISON: CT CHEST WO 06/13/2022 11:29 PM FINDINGS: Lungs: Lungs are clear throughout with no mass or consolidation detected. Pleural spaces: No pneumothorax or pleural effusion detected. Heart/Mediastinum: Heart size is normal and vessel margins are sharply defined. Bones/joints: No acute osseous lesions are detected. IMPRESSION: No acute findings. Dictated and Authenticated by: Umesh Tavares MD. Ordering:MABEL Kramer MD
--- NOTE | 2023-02-17 22:16 | DI.VRAD_ITS ---
Addendum created by Umesh Tavares MD on 02/17/2023 10:17:54 PM EDT: THIS REPORT CONTAINS FINDINGS THAT MAY BE CRITICAL TO PATIENT CARE. The findings were verbally communicated via telephone conference with Williams Starr at 10:17 PM EDT on 02/17/2023. The findings were acknowledged and understood. Initial report created on 02/17/2023 10:15:55 PM EDT: PROCEDURE INFORMATION: Exam: CT Head Without Contrast Exam date and time: 02/17/2023 9:58 PM Age: 67 years old Clinical indication: Stroke-like symptoms; Headache TECHNIQUE: Imaging protocol: Computed tomography of the head without contrast. Radiation optimization: All CT scans at this facility use at least one of these dose optimization techniques: automated exposure control; mA and/or kV adjustment per patient size (includes targeted exams where dose is matched to clinical indication); or iterative reconstruction. Other technique: STROKE PROTOCOL was implemented. COMPARISON: CT HEAD WO 06/13/2022 10:32 PM FINDINGS: Brain: Cerebral sulci show bilateral symmetry with no supratentorial mass or mass effect detected. A few poorly marginated hypodensities seen scattered throughout the deep and periventricular white matter of both cerebral hemispheres are consistent with underlying microvascular ischemic changes. Brainstem and cerebellum are unremarkable and there is no evidence of acute transcortical infarction or recent intracranial hemorrhage. Cerebral ventricles: Ventricular and cisternal spaces are normal in size and configuration and there is no midline shift or hydrocephalus. Paranasal sinuses: Minimal mucosal densities are seen along the bases of the maxillary sinuses and involving the posterior and left anterolateral margins of the sphenoidal air cells. Mastoid air cells: Grossly clear bilaterally. Bones/joints: Bony calvarium and skull base are intact and no acute fractures are detected. Soft tissues: Unremarkable. IMPRESSION: Probable underlying microvascular ischemic changes with no evidence of acute transcortical infarction, recent hemorrhage or hydrocephalus. No acute intracranial process is detected. ASSESSMENT: ASPECTS ([place] Stroke Program Early CT Score) is 10. Dictated and Authenticated by: Umesh Tavares MD. Ordering:MABEL Kramer MD
[2023-02-17 23:03] VITALS: BP 192/78; PULSE 74; RESP 18; TEMP 36.6; O2SAT 100
== END 2023-02-17 22:50 | disposition home or self-care (01) ==
PROVIDERS: Emergency Provider Emergency Medicine; PCP Family Medicine
DX: R53.81 Other malaise (principal); I10 Essential (primary) hypertension; R42 Dizziness and giddiness; H53.8 Other visual disturbances; N28.9 Disorder of kidney and ureter, unspecified
CPT/HCPCS: 80053; 82805; 93005; 96361; 96374; 99284; 70450; 71046; 81003; 81015; 83735; 84443; 84484; 85025; 85610; 85730; 93010; 99283; J2405

== ENCOUNTER 2023-02-26 14:54 | Outpatient (CLI) | payer MEDICARE, OTHER, SELFPAY ==
--- NOTE | 2023-02-26 15:00 | DI.US_ITS ---
APPROVED REPORT EXAM: Comprehensive 2D, Doppler, and color-flow Echocardiogram Patient Location: Out-Patient Housing Liaison: Deangelo Jaramillo RDMS, RVT Indications: murmur Other Information Study Quality: Fair. Technically limited study due to body habitus. Conclusion Normal left ventricular wall thickness and chamber size. Ejection fraction is 55%. Wall motion is n ormal Normal right ventricular size and systolic function Left atrium is mildly dilated. Right atrial size is normal Aortic valve is calcified and probably trileaflet. There is mild aortic stenosis. Peak gradient is 23, mean 13 mmHg There is mitral annular calcification. Mildly thickened mitral leaflets. Trace mitral regurgitation Wall motion Left Ventricle Left ventricle is borderline dilated. The left ventricular systolic function is normal. The left vent ricular ejection fraction is within the normal range. There is normal left ventricular wall thickness . There is normal LV segmental wall motion. There is no ventricular septal defect visualized. LVEF is 55%. Right Ventricle Right ventricle is grossly normal in size. Right ventricular systolic function is grossly normal. Ligia ble to assess PA pressure. Atria Left atrium is mildly dilated. The right atrium size is normal. The interatrial septum is intact with no evidence for an atrial septal defect. Aortic Valve Aortic valve is calcified. Aortic valve is probably trileaflet. There is mild aortic stenosis Peak ao rtic valve gradient is 23.2 mmHg. Highest mean aortic valve gradient is 13.2 mmHg. Calculated TATE by the continuity equation is 1.6 cm2. No aortic regurgitation is present. Mitral Valve Mild mitral annular calcification. Mitral valve leaflets are mildly thickened. No evidence of mitral valve stenosis. Trace mitral regurgitation Tricuspid Valve The tricuspid valve is normal in structure. There is no tricuspid valve stenosis. Trace tricuspid reg urgitation. Pulmonic Valve The pulmonary valve is normal in structure. There is no pulmonic valvular stenosis. There is no pulmo haja valvular regurgitation. Great Vessels The aortic root is normal in size. Ascending aorta is borderline normal in caliber. Aortic arch is no t well visualized. IVC is normal in size and collapses >50% with inspiration. Pericardium There is no pericardial effusion. 2D Dimensions IVSD d PLAX 0.60 cm F: 0.6-1.0 LV Vol A2C d MOD 64.2 mL LVPW d PLAX 0.60 cm F: 0.6 - 1.0 LV Vol A4C d MOD 83.8 mL LVID d PLAX 5.44 cm F: 3.8 - 5.2 LA vol/ BSA A4C s A-L 38.1 mL/m2 LVDs 3.05 cm F: 2.2 - 3.5 LA Area A4C s MOD 25.08 cm2 Ao Root d 2.87 cm F: 2.7 - 3.3 LV EF A4C MOD 53.0 % Ao Asc Diam d 3.26 cm F: 2.3 - 3.1 LV EF A2C MOD 52.8 % LV EF Teichholz 74.0 % LV EF Biplane MOD 53.5 % LVEF (Romero's) 53.53 % F: 54 - 74 SV 41.47 mL LV Volume 57.54 mL F: 46 - 106 SV Index 20.13 mL/m2 LV Volume Index 27.93 mL/m2 F: 29 - 61 LV Vol Biplane MOD 77.5 mL FS 43.30 % M-Mode TAPSE 1.69 cm (M/F) >1.7 LV Diastology MV E' medial 0.130 (>0.07 m/s) E/A Ratio 0.9 LV E/e MED 7.85 (<14) MV E Vmax 1.02 (0.4-1.3 m/s) MV E' lateral 0.135 (>0.1 m/s) MV A Vmax 1.15 (0.4-1.3 m/s) LV E/e LAT 7.55 (<14) MV E/A Ratio 0.88 MV E/E' medial 7.85 MV E/E' lateral 7.57 Aortic Valve LVOT Area 3.34 cm2 AoV Area Vmax 1.61 cm2 LVOT Vmax 1.16 m/s AoV Area/ BSA (Vmax) 0.78 cm2/m2 LVOT Mean Ciro. 0.74 m/s TATE Mean Ciro. 1.47 cm2 LVOT Peak Grad 5.4 mmHg TATE Mean Ciro. Index 0.71 cm2/m2 LVOT Mean Grad 2.6 mmHg LVOT VTI 0.273 m LVOT Diam s 2.05 cm AoV Vmax 2.41 m/s Velocity Ratio 0.48 AoV Mean Ciro. 1.68 m/s AoV Peak Grad 23.2 mmHg LVOT SV 91.10 mL AoV Mean Grad 13.2 mmHg AoV VTI 0.548 m AoV Area VTI 1.66 cm2 AoV Area/ BSA (VTI) 0.81 cm/m2 Mitral Valve MV DT 292 (160-240 msec) MV PHT 85 msec MV Area PHT 2.60 cm2 MV VTI 0.427 m MV Area VTI 2.13 (4.0-6.0 cm2) Pulmonary Valve PV Vmax 1.26 (0.5-1.5 m/s) RVOT Peak Gr. 4.89 mmHg PV Peak Grad 6.4 mmHg RVOT Mean Gr. 2.95 mmHg PV Mean Grad 3.6 mmHg RVOT VTI 0.311 m PV VTI 0.360 m RVOT Vmax 1.11 m/s
== END 2023-02-26 15:14 ==
PROVIDERS: PCP Family Medicine; Visit Provider Family Medicine
DX: R01.1 Cardiac murmur, unspecified (principal)
CPT/HCPCS: 93306

== ENCOUNTER → 2023-05-28 10:21 | Outpatient (CLI) | payer MEDICARE, SELFPAY ==
--- NOTE | 2023-05-28 | DI.RAD_ITS ---
Exam(s) XR CERVICAL SPINE COMP 4-5V EXAM: XR CERVICAL SPINE COMP 4-5V CLINICAL HISTORY: NECK PAIN, M54.2. TECHNIQUE: 2D digital imaging was performed. COMPARISON: No exams were available for comparison FINDINGS: Six views. No evidence of fracture, listhesis, nor offset of the spinal laminar line. There is advanced disc space narrowing at C3-4 level and mild retrolisthesis of C3 upon C4. There is also advanced disc space narrowing at C6-7 level. C4-5 and C5-6 as well as C2-3 levels exhibit norm al disc height. There is multilevel facet arthropathy. On the oblique views there are only small Hayley schka joint osteophytes noted. There are no cervical ribs evident. No facet malalignment. IMPRESSION: Multilevel chronic degenerative disc disease. Incidentally noted on the lateral view is calcification in the prevertebral tissues at and below the C4 level. DATA REPOSITORY: RADIATION DOSE DELIVERED:
== END ==
PROVIDERS: PCP Family Medicine; Visit Provider Family Medicine
DX: M50.321 Other cervical disc degeneration at C4-C5 level (principal)
CPT/HCPCS: 72050

== ENCOUNTER 2023-08-26 07:50 | Inpatient (IN) | payer MEDICARE, BC, SELFPAY ==
[2023-08-26] VITALS (43 sets, daily range): BP systolic 82–174; BP diastolic 32–115; PULSE 78–117; RESP 11–27; TEMP 36.7–39.5; O2SAT 93–100
--- NOTE | 2023-08-26 07:45 | RT.EKG_ITS ---
APPROVED REPORT Exam: Resting ECG Reason for Exam: Fever, Weakness Patient Location: E HR:116 bpm ECG Measurements Heart Rate 116 AXIS MA 146 P 83 QRSd 138 QRS -61 QT 343 T 110 QTc 467 Conclusion Sinus tachycardia...rate> 99 Atrial premature complexes...SV complexes w/ short R-R intvls RBBB and LAFB...QRSd >120mS, axis(-40,240) LVH with secondary repolarization abnormality...multi-LVH criteria, abnrm ST-T ST elevation secondary to LVH...Multiple VCG criteria sinus tach, left axis, PACs, RBBB
--- NOTE | 2023-08-26 07:57 | ED.GENADUL_ITS ---
HPI General Stated Complaint: Nausea/Vomit/Diar Mode of arrival: EMS. ARABELLA: 2 Date/Time Provider Initiated Documentation: 08/26/23 07:51. Limitations to Documentation: no limitations. Information obtained by: patient, EMS, RN notes reviewed and old records reviewed. HPI Narrative: 68-year-old female presents to the ER via EMS with a chief complaint of fever, nausea vomiting lower back pain and weakness which began 2 days ago. She attributes it to eating some bad meatballs. She does present febrile with a temp of 39.5 she is tachycardic with heart rate 117 and hypertensive that she has not been able to keep down her medications. She does have a past medical history of hypertension, renal insufficiency, insulin-dependent diabetes, sepsis, chronic pain psoriatic arthritis she does have a leo in her left femur. Patient denies any chest pain shortness of breath cough or productive cough. She does report diarrhea denies any hematochezia or blood in her emesis. She did vomit just prior to arrival yellow bilious material. She is requesting Pepsi upon arrival. I did instruct her to remain n.p.o. until we get fluids going and labs. Related Data Home Medications Medication Instructions Recorded Confirmed albuterol sulfate 2.5 mg/3 mL 1 unit inhalation QID PRN 01/11/14 08/26/23 (0.083 %) solution for nebulization calcium carbonate 600 mg-vitamin 1 tab PO BID 01/11/14 08/26/23 D3 10 mcg (400 unit) tablet (Calcium 600 + D(3)) esomeprazole magnesium 40 mg 40 mg PO DAILY 01/11/14 08/26/23 capsule,delayed release (Nexium) folic acid 1 mg tablet 1 mg PO DAILY 01/11/14 08/26/23 insulin glargine 100 unit/mL 24 units subcut DAILY AM 01/11/14 08/26/23 subcutaneous solution (Lantus U-100 Insulin) leflunomide 20 mg tablet (Arava) 20 mg PO DAILY 01/11/14 08/26/23 methylprednisolone 4 mg tablet 4 mg PO DAILY 01/11/14 08/26/23 zolpidem 10 mg tablet 10 mg PO HS 01/11/14 08/26/23 aspirin 81 mg chewable tablet 81 mg PO DAILY 04/09/19 08/26/23 insulin lispro 100 unit/mL See Rx Instructions .Route .COMPLEX 04/09/19 08/26/23 subcutaneous pen (Humalog KwikPen (U-100) Insulin) multivitamin with minerals-iron 1 mg PO DAILY 04/09/19 08/26/23 fumarate 9 mg iron/15 mL oral liquid (Multi Vitamin) ascorbic acid (vitamin C) 500 mg See Rx Instructions .Route .COMPLEX 05/10/22 08/26/23 tablet metoclopramide HCl 5 mg tablet 5 mg PO TID 05/10/22 08/26/23 ondansetron HCl 4 mg tablet 4 mg PO Q8H PRN PRN 05/10/22 08/26/23 oxycodone 5 mg tablet 5 - 10 mg PO Q6H PRN PRN 05/10/22 08/26/23 albuterol sulfate 90 mcg/actuation 2 puff inhalation Q4H PRN PRN #8.5 05/13/22 08/26/23 aerosol inhaler (Ventolin HFA) grams amlodipine 5 mg tablet 5 mg PO DAILY 08/26/23 08/26/23 atorvastatin 20 mg tablet 20 mg PO QPM 08/26/23 08/26/23 metoprolol succinate 100 mg 100 mg PO DAILY 08/26/23 08/26/23 tablet,extended release 24 hr Previous Rx's Medication Instructions Recorded albuterol sulfate 90 mcg/actuation 2 puff inhalation Q4H PRN PRN #8.5 05/13/22 aerosol inhaler (Ventolin HFA) grams Allergies Allergy/AdvReac Type Severity Reaction Status Date / Time capsaicin Allergy Severe Anaphylaxsi Unverified 08/26/23 07:58 s clarithromycin [From Biaxin] Allergy Intermediate Skin Rash Unverified 08/26/23 07:58 Penicillins Allergy Intermediate Skin Rash Unverified 08/26/23 07:58 Sulfa (Sulfonamide Allergy Intermediate Skin Rash Unverified 08/26/23 07:58 Antibiotics) nickel Allergy Mild Itching Unverified 08/26/23 07:58 Review of Systems All systems reviewed & are unremarkable except as noted in HPI and below Constitutional Constitutional: Reports as per HPI, Reports fatigue, Reports fever(s), Reports lethargy, Reports poor appetite and Reports weakness Cardiovascular Cardiovascular: Denies chest pain and Denies dyspnea Respiratory Respiratory: Denies change in phlegm color, Denies cough and Denies dyspnea Gastrointestinal Gastrointestinal: Denies abdominal pain, Denies coffee ground emesis, Reports diarrhea, Reports nausea and Reports vomiting Musculoskeletal Musculoskeletal: Reports back pain (Lower) Integumentary/Breasts Skin/Breast: Denies rash Neurologic Neurologic: Reports weakness Endocrine Endocrine: Reports fatigue PFSH All Active Problems (Updated 08/26/23 @ 14:17 by Lauryn Herrera NP) Diabetes mellitus (Chronic) Psoriatic arthritis (Acute) Severe sepsis (Acute) Acute UTI (Acute) Nausea vomiting and diarrhea (Acute) Renal insufficiency (Chronic) Polypharmacy (Acute) Bacteremia (Acute) Chronic pain (Chronic) Pneumonia (Acute) COVID (Acute) Cellulitis and abscess of foot (Acute) Contusion of right foot (Acute) Sepsis (Acute) Bone infection of left foot (Acute) Status post total left knee replacement (Acute) Pain (Acute) Lower extremity pain (Acute) Medical History Psoriatic arthritis Edema, peripheral Bacteremia due to group B Streptococcus Diabetes mellitus Surgical History History of left 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 Exam Narrative Exam Narrative: Constitutional: Alert and oriented x3. Appears stated age. Patient appears acutely toxic. Normal body habitus. Patient is slightly somnolent. Head: Normocephalic, no trauma. Eyes: Pupils PERRL, Red reflex noted, EOM's intact. Eyelids symmetrical without lesions, discharge, or swelling. ENT: Bilateral TM's WNL, External ear normal to inspection, no mastoid TTP, swelling, or erythema, Nasal turbinates WNL, no nasal discharge. Normal dentition, Posterior pharynx WNL, no exudate. Chest: Tachycardia, No stemi noted on EKG, Normal S1, S2, distal pulses intact. Resp: Lungs clear to auscultation bilaterally, no wheezes, rales, or rhonchi. Abdomen: Soft, non-distended, Non tender to palpation all 4 quadrants. Musculoskeletal: Unable to assess gait, 3/5 strength to all four extremities. Patient states she uses a wlker at home, 2 plus edema to bilateral lower extremities, non pittting, Left lower leg has a leo in place, no surrounding erythema or redness Skin: No suspicious rashes or lesions. Capillary refill less than 2 sec. Appears Pale. Neurologic: Cranial nerves II-XII intact. Alert and oriented x 3. Motor: No deficits noted. Sensory: Intact bilaterally all 4 extremities. Hematologic/Lymphatic: No ecchymosis, no lymphadenopathy. Course Vital Signs Vital signs: Vital Signs Temperature 39.5 C H 08/26/23 07:52 Pulse 117 H 08/26/23 07:52 Respiratory Rate 11 L 08/26/23 07:52 Blood Pressure 167/115 H 08/26/23 07:52 Pulse Oximetry 96 08/26/23 07:52 Temperature 39.5 C H 08/26/23 07:52 Temperature Source Oral 08/26/23 07:52 Pulse 117 H 08/26/23 07:52 Respiratory Rate 11 L 08/26/23 07:52 Respiratory Effort Non-Labored, Short of Breath 08/26/23 07:56 Blood Pressure 167/115 H 08/26/23 07:52 Blood Pressure Position Sitting 08/26/23 07:52 Pulse Oximetry 96 08/26/23 07:52 Oxygen Delivery Method Room Air 08/26/23 07:52 Oxygen Flow Rate 0 08/26/23 07:52 Pain Level 5 08/26/23 07:52 Lab/Test Results Lab/Test Results: 08/26/23 07:53 Blood Blood Culture - Pending 08/26/23 07:53 Blood Blood Culture - Pending Medical Decision Making 68-year-old female presents to the ER via EMS with a chief complaint of fever, nausea vomiting lower back pain and weakness which began 2 days ago. She attributes it to eating some bad meatballs. She does present febrile with a temp of 39.5 she is tachycardic with heart rate 117 and hypertensive that she has not been able to keep down her medications. She does have a past medical history of hypertension, renal insufficiency, insulin-dependent diabetes, sepsis, chronic pain psoriatic arthritis she does have a leo in her left femur. Patient is immunosuppressed due to her arthritis medication leflunomide. Patient denies any chest pain shortness of breath cough or productive cough. She does report diarrhea denies any hematochezia or blood in her emesis. She did vomit just prior to arrival yellow bilious material. She is requesting Pepsi upon arrival. I did instruct her to remain n.p.o. until we get fluids going and labs ED sepsis workup ordered including blood cultures x 2, lactate, urinalysis, lipase troponin EKG, chest x-ray, stool samples,and Fluvid swab. 1 L of lactated Ringer's and 4 mg of Zofran, 1gm Acetametaphin IVPB ordered. Differential diagnosis includes but not limited to sepsis, COVID, pneumonia, dehydration, DKA, gastroenteritis. 0824: Lactate reported at 3.0, Fluids infusing. CBC shows no leukocytosis however with her immunosuppressive drugs this is expected. She does have elevated neutrophils at 7.38. 0944: Patient c/o back pain, Morphine 2mg IVP ordered. COVID flu RSV negative, initial troponin less than 50, CMP shows sodium 137 potassium 3.7 which is within normal limits anion gap 12 BUN 27 creatinine 1.4 GFR is 41 total bilirubin is slightly elevated at 1.4 AST is 60 ALT 65 alk phos 122 which are elevated from her previous. Lipase within normal limits procalcitonin 6.5 which is high risk for sepsis. Mcqueen ordered due to still pending urinalysis expected disposition is admission, patient is continually incontinent of urine, a PureWick was placed by ED staff. Pending CT and urinalysis. UA shows 40 ketones moderate blood positive nitrites small leukocytes 5-10 RBCs 10, 20-50 WBCs, culture and sensitivity ordered. CT abdomen pelvis shows nothing acute per radiologist report there is some mildly nodular contours of the liver suggesting hepatic cirrhosis and some atelectasis. Chest x-ray also shows no acute findings. 3-hour lactate has improved to 2.1. Patient is hemodynamically stable at this time O2 sat 94% room air, 98 heart rate blood pressure is 116/83. 1119: Hospitalist paged for admission for possible uro-sepsis in an immunocompromised patient. 1133: Spoke with Dr. Farrell regarding patient case and details, he verbalized understanding and agrees to accept patient for admission. Will update patient on plan of care and inform family. This text was generated using Mimviation system, please disregard any oddities of phrase or misspellings. 1139: Serial troponin is elevated at 120, Dr. Farrell informed, patient continues to deny chest pain. She does have some lower back pain which is at her baseline. Patient transferred up to floor with staff. Medical Records Medical records reviewed: Yes I reviewed the patient's medical records. Lab Data Lab results reviewed: Yes I reviewed the patient's lab results. Labs: 08/26/23 10:00 Blood Blood Culture - Pending 08/26/23 09:57 Urine - Cath Mcqueen Indwelling Urine Culture - Pending 08/26/23 08:15 Blood Blood Culture - Pending Laboratory Tests Range/Units 08/26/23 08/26/23 08/26/23 08:02 08:15 08:15 WBC (4.4-10.8) 10^3/uL 8.67 RBC (3.93-5.22) 10^6/uL 3.68 L Hgb (11.2-15.7) g/dL 11.3 Hct (36.0-46.0) % 34.6 L MCV (80-95) fL 94 MCH (27.0-33.0) pg 30.7 MCHC (32.0-36.0) % 32.7 RDW (11.7-14.6) % 14.0 Plt Count (130-400) 10^3/uL 217 MPV (8.0-11.0) fL 10.1 Immature Gran % 0.5 Neutrophils % 85.1 Lymphocytes % 8.7 Monocytes % 3.9 Eosinophils % 0.8 Basophils % 1.0 Nucleated RBC % (0.0-0.3) % 0.0 Absolute Neutrophils (1.2-6.7) 10^3/uL 7.38 H Absolute Lymphocytes (1.2-3.4) 10^3/uL 0.75 L Absolute Monocytes (0.1-0.8) 10^3/uL 0.34 Absolute Eosinophils (0.0-0.7) 10^3/uL 0.07 Absolute Basophils (0.0-0.2) 10^3/uL 0.09 VBG Lactate (0.6-1.4) mmol/L 3.0 H* Sodium (136-145) mmol/L 137 Potassium (3.5-5.1) mmol/L 3.7 Chloride (98-107) mmol/L 99 Carbon Dioxide (21.0-32.0) mmol/L 26.0 Anion Gap (3-11) mmol/L 12.0 H BUN (7-18) mg/dL 27 H Creatinine (0.55-1.02) mg/dL 1.4 H Est GFR (CKD-EPI 2020) (mL/min/1.73m2) 41.24 Glucose (74-106) mg/dL 272 H Calcium (8.5-10.1) mg/dL 9.5 Total Bilirubin (0.2-1.0) mg/dL 1.4 H AST (15-37) U/L 60 H ALT (14-59) U/L 65 H Alkaline Phosphatase (46-116) U/L 122 H Troponin I (<or=60) ng/L 58 Total Protein (6.4-8.2) g/dL 7.1 Albumin (3.4-5.0) g/dL 3.3 L Lipase (16-77) U/L 18 Cancelled Procalcitonin ng/mL 6.5 Urine Color (Yellow) Urine Clarity (Clear) Urine pH (5-8) Ur Specific [place] (1.005-1.025) Urine Protein (Negative) mg/dL Urine Ketones (Negative) mg/dL Urine Blood (Negative) Urine Nitrite (Negative) Urine Bilirubin (Negative) Urine Urobilinogen (Up to 0.2) mg/dL Ur Leukocyte Esterase (Negative) Urine RBC (0-2) HPF Urine WBC (0-5) HPF Ur Epithelial Cells (Negative) HPF Urine Crystals (Negative) HPF Urine Bacteria (Negative) HPF Urine Casts (Negative) LPF Urine Mucus (Negative) Ur Culture Indicated? Urine Glucose (Negative) mg/dL COVID-19 Source Nasopharynx SARS-CoV-2 (PCR) (Negative) Negative Influenza Type A (PCR) (Negative) Negative Influenza Type B (PCR) (Negative) Negative RSV (PCR) (Negative) Negative Range/Units 08/26/23 08/26/23 09:57 11:09 WBC (4.4-10.8) 10^3/uL RBC (3.93-5.22) 10^6/uL Hgb (11.2-15.7) g/dL Hct (36.0-46.0) % MCV (80-95) fL MCH (27.0-33.0) pg MCHC (32.0-36.0) % RDW (11.7-14.6) % Plt Count (130-400) 10^3/uL MPV (8.0-11.0) fL Immature Gran % Neutrophils % Lymphocytes % Monocytes % Eosinophils % Basophils % Nucleated RBC % (0.0-0.3) % Absolute Neutrophils (1.2-6.7) 10^3/uL Absolute Lymphocytes (1.2-3.4) 10^3/uL Absolute Monocytes (0.1-0.8) 10^3/uL Absolute Eosinophils (0.0-0.7) 10^3/uL Absolute Basophils (0.0-0.2) 10^3/uL VBG Lactate (0.6-1.4) mmol/L 2.1 H Sodium (136-145) mmol/L Potassium (3.5-5.1) mmol/L Chloride (98-107) mmol/L Carbon Dioxide (21.0-32.0) mmol/L Anion Gap (3-11) mmol/L BUN (7-18) mg/dL Creatinine (0.55-1.02) mg/dL Est GFR (CKD-EPI 2020) (mL/min/1.73m2) Glucose (74-106) mg/dL Calcium (8.5-10.1) mg/dL Total Bilirubin (0.2-1.0) mg/dL AST (15-37) U/L ALT (14-59) U/L Alkaline Phosphatase (46-116) U/L Troponin I (<or=60) ng/L 120 H* Total Protein (6.4-8.2) g/dL Albumin (3.4-5.0) g/dL Lipase (16-77) U/L Procalcitonin ng/mL Urine Color (Yellow) Yellow Urine Clarity (Clear) Cloudy Urine pH (5-8) 5.0 Ur Specific [place] (1.005-1.025) 1.020 Urine Protein (Negative) mg/dL 100 H Urine Ketones (Negative) mg/dL 40 H Urine Blood (Negative) Moderate H Urine Nitrite (Negative) Positive H Urine Bilirubin (Negative) Negative Urine Urobilinogen (Up to 0.2) mg/dL 0.2 Ur Leukocyte Esterase (Negative) Small H Urine RBC (0-2) HPF 5-10 H Urine WBC (0-5) HPF 20-50 H Ur Epithelial Cells (Negative) HPF Few Urine Crystals (Negative) HPF Negative Urine Bacteria (Negative) HPF Moderate Urine Casts (Negative) LPF 0-2 Hyaline Urine Mucus (Negative) Trace Ur Culture Indicated? C&S Done As Ordered Urine Glucose (Negative) mg/dL Negative COVID-19 Source SARS-CoV-2 (PCR) (Negative) Influenza Type A (PCR) (Negative) Influenza Type B (PCR) (Negative) RSV (PCR) (Negative) Core Measures Measure exclusions: not indicated Quality:SDOH Health Related Social Needs: No Data to Display Critical Care Time Critical Care Time Critical Care Time: Yes Total Critical Care Time: 60 Attestation: I spent greater than 35 minutes addressing this patient's acute life threatening illness. This time was spent engaged in actions directly related to the patient's care. Failure to initiate these interventions would have likely resulted in clinically significant or life threatening deterioration in the patients condition. Discharge Plan Disposition Patient Disposition: Admit to [facility] Condition: Serious Discharge Details Clinical Impression: Nausea vomiting and diarrhea, Acute UTI Admit Date/Time: 08/26/23 11:38 Admit Provider: Jourdan Farrell Attending Provider: Jourdan Farrell Primary Care Provider: Melissa Garcia ED Provider: Beatriz Schwarz Discharge Data Discharge Date/Time-TO BE ENTERED AT DEPARTURE: 08/26/23 12:19
--- NOTE | 2023-08-26 08:00 | DI.RAD_ITS ---
Exam(s) XR CHEST 2V PA LATERAL EXAM: XR CHEST 2V PA LATERAL CLINICAL HISTORY: Fever, TECHNIQUE: 2D digital imaging was performed of the chest. Two images were obtained. PA and lateral views were obtained. COMPARISON: CR,XR XR CHEST 2V PA LATERAL from 02/17/2023 FINDINGS: MEDIASTINUM: Normal. HEART: Normal. Mitral calcification is seen. PULMONARY VASCULATURE: Normal. LUNGS: Clear. PLEURAL SPACE: No pleural effusion or pneumothorax. BONE:Within normal limits for the patient's age. OTHER FINDINGS:There is external artifact seen on the lateral view overlying the anterior chest. IMPRESSION: No acute pulmonary findings. DATA REPOSITORY: RADIATION DOSE DELIVERED:
[2023-08-26] MEDS: Lactated Ringers 500 ML 1000 ML IV (08:19)
[2023-08-26] MEDS: Ondansetron 4 MG/2 ML VIAL IVP ×2 (08:20→14:41)
[2023-08-26 08:22] LABS: Abs Immature Grans 0.04 10^3/uL (0.0-0.06); Absolute Basophil Count 0.09 10^3/uL (0.0-0.2); Absolute Eosinophil Count 0.07 10^3/uL (0.0-0.7); Absolute Lymphocyte Count 0.75 10^3/uL (1.2-3.4); Absolute Monocyte Count 0.34 10^3/uL (0.1-0.8); Absolute Neutrophil Count 7.38 10^3/uL (1.2-6.7); Eosinophils % 0.8; HCT 34.6 % (36.0-46.0); HGB 11.3 g/dL (11.2-15.7); Immature Grans % 0.5; Lymphocytes % 8.7; MCH 30.7 pg (27.0-33.0); MCHC 32.7 % (32.0-36.0); MCV 94 fL (80-95); MPV 10.1 fL (8.0-11.0); Monocytes % 3.9; Neutrophils % 85.1; Platelet Count 217 10^3/uL (130-400); RBC 3.68 10^6/uL (3.93-5.22); RDW-SD 47.9 fL; WBC 8.67 10^3/uL (4.4-10.8)
[2023-08-26] MEDS: Normal Saline Flush 10 ML SYR IVP ×2 (08:35→19:25)
[2023-08-26] MEDS: ACETAMINOPHEN 1,000 MG/100 ML BTL 400 MG IVPB (08:35)
[2023-08-26 08:41] LABS: ALT 65 U/L (14-59); AST 60 U/L (15-37); Albumin 3.3 g/dL (3.4-5.0); Alkaline Phosphatase 122 U/L (46-116); BUN 27 mg/dL (7-18); Bilirubin, Total 1.4 mg/dL (0.2-1.0); CREATININE 1.4 mg/dL (0.55-1.02); Calcium 9.5 mg/dL (8.5-10.1); Chloride 99 mmol/L (98-107); Estimated GFR 41.24 (mL/min/1.73m2); Glucose 272 mg/dL (74-106); Lipase 18 U/L (16-77); Potassium 3.7 mmol/L (3.5-5.1); Sodium 137 mmol/L (136-145); Total Protein 7.1 g/dL (6.4-8.2); Troponin I 58 ng/L (<or=60)
[2023-08-26 09:06] LABS: Procalcitonin 6.5 ng/mL
--- NOTE | 2023-08-26 09:15 | DI.CT_ITS ---
Exam(s) CT ABDOMEN PELVIS WO EXAM: CT ABDOMEN PELVIS WO CLINICAL HISTORY: Vomiting, fever,. TECHNIQUE: Imaging Protocol: Axial computed tomography images with coronal and sagittal reformatted images were created and reviewed. COMPARISON: CT CT CHEST PE CTA from 05/10/2022 FINDINGS: ABDOMEN: Lung Bases: Coronary artery calcifications. Mitral annular calcification is present. Mild dependent atelectasis. Liver: The liver has a mildly nodular contour suggesting hepatic cirrhosis. Please correlate clinica lly. No measurable mass. Gallbladder and biliary tract: Status post cholecystectomy. No significant biliary ductal dilatation . Pancreas: Fatty atrophy of the pancreas. Spleen: Normal. Kidneys: Normal size, contour and axis.Left nephrolithiasis. No obstructive uropathy. No masses see n. Adrenal glands: No mass is seen. Lymph nodes: Within normal limits. Abdominal Aorta: Abdominal portion non-dilated. Extensive atherosclerosis. PELVIS: Bladder:The bladder is decompressed. There is a Mcqueen catheter in place. Air is seen within the dep endent urinary bladder likely reflecting recent catheterization. Bowel: No obstruction or bowel wall thickening. No evidence of appendicitis. Peritoneal cavity: No ascites, collection or mesenteric inflammatory response. No free air. Reproductive organs: Status post hysterectomy. Bones: Within normal limits for the patient's age. There is an intramedullary leo seen in the distal aspect of the left femur. It is incompletely imaged. Laminectomy defect is seen at L4. There is a right convex lumbar scoliosis. Soft Tissues: Within normal limits. IMPRESSION: 1. No acute abdominal and pelvic process. 2. Incidental finding seen in the abdomen and pelvis as described above. 3. Findings were discussed with the emergency department at 11:15 a.m. on 08/26/2023 RADIATION DOSE DELIVERED: Total DLP DATA REPOSITORY: All CT scans at this facility are submitted to the National Radiology Data Registry (NRDR) Dose Index Registry (DIR) with the [employer] (ACR). RADIATION OPTIMIZATION: All CT scans at this facility use at least one of these dose optimization te chniques: automated exposure control; mA and/or kV adjustment per patient size (includes targeted exa ms where dose is matched to clinical indication); or iterative reconstruction.
[2023-08-26 09:16] LABS: COVID-19 PCR Negative (Negative); Influenza A PCR Negative (Negative); Influenza B PCR Negative (Negative); RSV PCR Negative (Negative)
[2023-08-26 09:21] LABS: Source Nasopharynx
[2023-08-26] MEDS: AZTREONAM 2,000 MG in Normal Saline 100 ML 200 MG IVPB (10:07)
[2023-08-26 10:08] LABS: Bilirubin Negative (Negative); Blood Moderate (Negative); Clarity Cloudy (Clear); Glucose Negative (Negative); Ketones 40 mg/dL (Negative); Leukocyte Esterase Small (Negative); Nitrite Positive (Negative); Urobilinogen 0.2 mg/dL (Up to 0.2)
[2023-08-26 10:18] LABS: Bacteria Moderate HPF (Negative); C & S Indicated? C&S Done As Ordered; Casts 0-2 Hyaline LPF (Negative); Crystals Negative HPF (Negative); Epithelial Cells Few HPF (Negative); Mucus Trace (Negative); WBC 20-50 HPF (0-5)
[2023-08-26 11:17] LABS: Lactate 2.1 mmol/L (0.6-1.4)
--- OUTSIDE RECORDS SUMMARY | 2023-08-26 11:32 | XMS_ITS | Continuity of Care Document ---
Author Name Unknown Organization [facility] Address Unknown Care Team Providers Care Social Service Coordinator Name Role Phone Renny Brunner Primary Care Physician Un available Encounter [facility] Date(s): 03/26/22 - 04/05/22 [facility] [address] [place] [address]- Encounter Diagnosis Failed total knee arthroplasty(Discharge Diagnosis) - 03/26/22 Infection and inflammatory reaction due to internal left knee prosthesis, initial encounter(Final) - Acute posthemorrhagic anemia(Final) - Osteonecrosis, unspecified(Final) - Urinary tract infection, site not specified(Final) - Arthrodesis status(Final) - Other chronic pain(Final) - Rheumatoid arthritis, unspecified(Final) - Arthropathic psoriasis, unspecified(Final) - Type 2 diabetes mellitus without complications(Final) - Unspecified asthma, uncomplicated(Final) - Essential (primary) hypertension(Final) - Obesity, unspecified(Final) - Insomnia, unspecified(Final) - Pressure ulcer of sacral region, stage 2(Final) - Arthrodesis status(Discharge Diagnosis) - 03/26/22 Presence of unspecified artificial knee joint(Discharge Diagnosis) - 03/26/22 AVN (avascular necrosis of bone)(Discharge Diagnosis) - 03/26/22 Discharge Disposition: Home Care with Home Health Attending Physician: Brissa Rizzo MD Admitting Physician: Brissa Rizzo MD Allergies, Adverse Reactions, Alerts Substance Reaction Severity Status amoxicillin Rash Unknown Active clarithromycin Stomach upset Rash Severe Active isoniazid 1 Liver damage Severe Active gabapentin Dizziness Unknown Active acitretin Conjunctivitis Swelling of lower limb Unknown Active Nickel Itching Unknown Active penicillins Itching Rash Severe Active Capsaicin Anaphylaxis Severe Active Remicade Anaphylactic reaction Severe Active ceFAZolin Interstitial nephritis Unknown Activ e traMADol Nausea and vomiting Unknown Active 1hepatotoxicity requiring hospitalization Assessment and Plan Extracted from: Title:Nursing Discharge Author:Shirley Gallardo Date:04/05/22 Patient assessed at start of shift, assessment WNL. Pain controlled with current regime of Oxycodone 5-10mg and 1000mg Tylenol. BS WNL, no correction needed. Discharge Packet complete, packet reviewed with patient and , questions answered, both stated understanding. Pt being discharge Home with services. Pain medication of 10mg Oxycodone administered prior to d/c for ride home. Extracted from: Title:SOAP Note: Rehab Note Author:Brissa Rizzo Date:04/04/22 Health Status Allergies: Allergic Reactions (All) Severe Capsaicin- Anaphylaxis. Clarithromycin- Rash and stomach upset. Penicillins- Rash and itching. Remicade- Anaphylactic reaction. Unknown Amoxicillin- Rash. Nickel- Itching. TraMADol- Nausea and vomiting. Nonallergic Reactions (All) Severe Isoniazid- Liver damage. Unknown Acitretin- Swelling of lower limb and conjunctivitis. CeFAZolin- Interstitial nephritis. Gabapentin- Dizziness. Canceled/Inactive Reactions (All) Unknown OxyCODONE- Itching., Allergies (11) Active Severity Reaction Capsaicin Severe Anaphylaxis clarithromycin Severe Rash, Stomach upset penicillins Severe Rash, Itching isoniazid Severe Liver damage Remicade Severe Anaphylactic reaction acitretin Unknown Swelling of lower limb, Conjunctivitis amoxicillin Unknown Rash gabapentin Unknown Dizziness Nickel Unknown Itching ceFAZolin Unknown Interstitial nephritis traMADol Unknown Nausea and vomiting Medications Current medications: (Selected) Inpatient Medications Ordered Ambien: 10 mg = 2 tab(s), Oral, Once a day (at bedtime), PRN: Sleep Benadryl: 25 mg = 1 cap(s), Oral, q6hr, PRN: Itching Colace: 100 mg = 1 cap(s), Oral, BID, PRN: Constipation Dextrose 50% injection: 25 gm = 50 mL, IV Push, q15min, PRN: Blood Glucose Esomeprazole: 40 mg = 1 cap(s), Oral, Daily Humalog (Lispro) Sliding Scale Low Dose Algorithm: Low Dose SCALE, Subcutaneous, QIDACHS Lantus: 24 unit(s) = 0.24 mL, Subcutaneous, Daily MiraLax: 17 gm = 1 packet(s), Oral, Daily, PRN: Constipation Reglan: 5 mg = 0.5 tab(s), Oral, TIDAC Singulair: 10 mg = 1 tab(s), Oral, HS Tylenol: 1,000 mg = 2 tab(s), Oral, QID, PRN: Pain Vitamin C: 500 mg = 1 tab(s), Oral, Daily Zofran: 4 mg = 1 tab(s), Oral, q6hr, PRN: Nausea/Vomiting aspirin: 81 mg = 1 tab(s), Oral, Daily atorvastatin: 10 mg = 1 tab(s), Oral, Daily calcium carbonate: 500 mg = 1 tab(s), Oral, Daily carvedilol: 12.5 mg = 1 tab(s), Oral, BIDWM cholecalciferol: 1,000 unit(s) = 1 tab(s), Oral, Daily doxycycline: 100 mg = 1 cap(s), Oral, BID ferrous sulfate: 325 mg = 1 tab(s), Oral, Daily folic acid: 1 mg = 1 tab(s), Oral, Daily glucagon: 1 mg = 1 vial(s), IM, Daily, PRN: Blood Glucose hydrocortisone 1% topical cream: 1 yanet, TOP, TID, PRN: Itching leflunomide: 20 mg = 1 tab(s), Oral, Daily lidocaine 5% topical film: 3 patch(es), TOP, Daily lidocaine patch removal: Removal of 3 patch(es), TOP, HS lisinopril: 10 mg = 1 tab(s), Oral, qPM methylPREDNISolone 4 mg oral tablet: 4 mg = 1 tab(s), Oral, Daily miconazole topical: 1 yanet, TOP, BID oxyCODONE immediate release: 10 mg = 2 tab(s), Oral, q4hr, PRN: Pain - Severe oxyCODONE immediate release: 5 mg = 1 tab(s), Oral, q4hr, PRN: Pain - Moderate rivaroxaban: 10 mg = 1 tab(s), Oral, Daily senna: 17.2 mg = 2 tab(s), Oral, HS, PRN: Constipation Documented Medications Documented !-albuterol-ipratropium inhalation: 1 puff(s), INH, q6hr, PRN: Shortness of Breath or wheezing, 14.7 gm, 0 Refill(s) !-aspirin 81 mg oral tablet: 81 mg = 1 tab(s), Oral, Daily, 30 tab(s), 0 Refill(s) Ambien 10 mg oral tablet: 10 mg = 1 tab(s), Oral, Once a day (at bedtime), PRN: for sleep, 0 Refill(s) Breo Ellipta 200 mcg-25 mcg/inh inhalation powder: 1 puff(s), INH, Daily, PRN: Shortness of Breath or wheezing, 0 Refill(s) Lantus 100 units/mL subcutaneous solution: 24 unit(s), Subcutaneous, Daily, 10 mL, 0 Refill(s) Nasonex: 1 spray(s), Nasal, Daily, PRN: Allergy symptoms, 0 Refill(s) SITagliptin 50 mg oral tablet: 50 mg = 1 tab(s), Oral, Daily, 30 tab(s), 0 Refill(s) Vitamin C 500 mg oral tablet: 500 mg = 1 tab(s), Oral, Daily, 30 tab(s), 0 Refill(s) amLODIPine 10 mg oral tablet: 10 mg = 1 tab(s), Oral, BID, 60 tab(s), 0 Refill(s) atorvastatin 10 mg oral tablet: 10 mg = 1 tab(s), Oral, Daily, 30 tab(s), 0 Refill(s) calcium (as carbonate)-vitamin D 250 mg-125 intl units oral tablet: 1 tab(s), Oral, Daily, 60 tab(s), 0 Refill(s) carvedilol 12.5 mg oral tablet: 12.5 mg = 1 tab(s), Oral, BID, 60 tab(s), 0 Refill(s) esomeprazole: 40 mg, Oral, HS, 0 Refill(s) folic acid 1 mg oral tablet: 1 mg = 1 tab(s), Oral, Daily, 90 tab(s), 0 Refill(s) leflunomide 20 mg oral tablet: 20 mg = 1 tab(s), Oral, Daily, 30 tab(s), 0 Refill(s) lisinopril 10 mg oral tablet: 10 mg = 1 tab(s), Oral, Daily, 30 tab(s), 0 Refill(s) methylPREDNISolone 4 mg oral tablet: 4 mg = 1 tab(s), Oral, Daily, for 7 day(s), 7 tab(s), 0 Refill(s) multivitamin: 1 tab(s), Oral, Daily, 0 Refill(s) oxyCODONE 5 mg oral capsule: 5 mg = 1 cap(s), Oral, q4hr, PRN: Pain - Moderate, 0 Refill(s) oxyCODONE 5 mg oral tablet: 10 mg = 2 tab(s), Oral, q4hr, PRN: for pain, 0 Refill(s), Medications (33) Active Scheduled: (21) ascorbic acid 500 mg Tab [[facility]] 500 mg 1 tab(s), Oral, Daily aspirin 81 mg Oral EC Tab [[facility]] 81 mg 1 tab(s), Oral, Daily atorvastatin 10 mg Tab [[facility]] 10 mg 1 tab(s), Oral, Daily calcium carbonate 500 mg Chew Tab [[facility]] 500 mg 1 tab(s), Oral, Daily carvedilol 12.5 mg Tab [[facility]] 12.5 mg 1 tab(s), Oral, BIDWM cholecalciferol (25 mcg) 1000 units tablet [facility] 1,000 unit(s) 1 tab(s), Oral, Daily doxycycline hyclate 100 mg Cap [facility] 100 mg 1 cap(s), Oral, BID Esomeprazole 40 mg 1 cap(s), Oral, Daily ferrous sulfate [address] Tab [[facility]] 325 mg 1 tab(s), Oral, Daily folic acid 1 mg Tab [[facility]] 1 mg 1 tab(s), Oral, Daily insulin glargine 100 units/mL SubQ [facility]] 24 unit(s) 0.24 mL, Subcutaneous, Daily insulin lispro (HumaLOG) 100 units/mL SubQ PEN [[facility]] Low Dose SCALE, Subcutaneous, QIDACHS leflunomide 20 mg 1 tab(s), Oral, Daily lidocaine 5% Transdermal Patch [[facility]] 3 patch(es), TOP, Daily lidocaine patch removal [[facility]] Removal of 3 patch(es), TOP, HS lisinopril 10 mg Tab [[facility]] 10 mg 1 tab(s), Oral, qPM methylPREDNISolone 4 mg Tab [[facility]] 4 mg 1 tab(s), Oral, Daily metoclopramide 10 mg Tab [[facility]] 5 mg 0.5 tab(s), Oral, TIDAC miconazole Top 2% Crm [[facility]] 1 yanet, TOP, BID montelukast 10 mg Tab [[facility]] 10 mg 1 tab(s), Oral, HS rivaroxaban 10mg tablet [[facility]] 10 mg 1 tab(s), Oral, Daily Continuous: (0) PRN: (12) acetaminophen 500 mg Tab [[facility]] 1,000 mg 2 tab(s), Oral, QID dextrose 50% IV Donya 50 mL [[facility]] 25 gm 50 mL, IV Push, q15min diphenhydrAMINE 25 mg Cap [[facility]] 25 mg 1 cap(s), Oral, q6hr docusate sodium 100 mg Cap [[facility]] 100 mg 1 cap(s), Oral, BID glucagon recombinant 1 mg Inj [[facility]] 1 mg 1 vial(s), IM, Daily hydrocortisone Top 1% Crm [[facility]] 1 yanet, TOP, TID ondansetron 4 mg Dis Tab [[facility]] 4 mg 1 tab(s), Oral, q6hr oxyCODONE 5 mg Tab [[facility]] 5 mg 1 tab(s), Oral, q4hr oxyCODONE 5 mg Tab [[facility]] 10 mg 2 tab(s), Oral, q4hr polyethylene glycol 3350 Oral Pwdr Recon [[facility]] 17 gm 1 packet(s), Oral, Daily senna 8.6 mg Tab [[facility]] 17.2 mg 2 tab(s), Oral, HS zolpidem 5 mg Tab [[facility]] 10 mg 2 tab(s), Oral, Once a day (at bedtime) . Problem list: All Problems Anemia / 949446852 / Confirmed Asthma / [id number] / Confirmed UTI (urinary tract infection), bacterial / [id number] / Confirmed Chronic pain / [id number] / Confirmed GERD (gastroesophageal reflux disease) / [id number] / Confirmed HTN (hypertension) / 6064381496 / Confirmed Insomnia / [id number] / Confirmed RA (rheumatoid arthritis) / [id number] / Confirmed, Active Problems (8) Anemia Asthma Chronic pain GERD (gastroesophageal reflux disease) HTN (hypertension) Insomnia RA (rheumatoid arthritis) UTI (urinary tract infection), bacterial Impression and Plan #Failed left TKA/ left knee fusion per Dr. Reed at [facility] on 03/19/22. Is WBAT. Will need f/u with ortho at . She is to maintain on suppression with doxycycline x 90 days. Will need PT and OT 90 min each discipline for at least 5 days/week. Goals of mod I with mobility and ADLs using right walking boot. Estimated Discharge Date: 04/10 moved up to 04/05 given how well she is doing #N/V, diarrhea has recent h/o diagnosis diabetic gastroparesis, and also h/o candidial esophagitis s/p fluconazole reglan prn changed to scheduled for nausea and seems improved multiple antibiotics (doxy and cipro) may also be contributing, but now off cipro given watery stools, Cdiff ordered but then had no further symptoms and normal stool today so ordered d/c'd #Right foot AVN. Has been managing with right walking boot [employer] intermedi[employer]. #Chronic pain. Patient has become opiate dependent. Pain management will be a challenge. Will continue with multiple modality approach including scheduled Tylenol, lidoderm patches, cryotherapy. Encourage cutting back from 10 to 5 prn #RA/psoriatic arthritis. Will continue with home meds of leflunomide 20 mg daily, methylprednisolone 4 mg daily. #UTI. 5 day course of Cipro 500 mg BID completed #DM2. Continue with Lantus 24 units daily and SSI. BGs well controlled in 100s #Asthma. Continue with montelukast and prn inhalers. #HTN. Continue with lisinopril and amlodipine #Anemia due to blood loss. She's s/p 2 unit PRBC. Reportedly had trouble with 3rd PRBC and thus discontinued. 03/27: Hgb 7.7. recheck in AM #Insomnia. Patient wants to continue Ambien which she takes at home. #CKD: Cr at 1.16. Continue to monitor and avoid nephrotoxic agents. Cr was also slightly elevated at [facility] and being monitored. #GERD: On PPI (prefers Nexium but on Protonix here) If brings her medicine from home will change. #allergic reaction: R knee, likely secondary to surgical dressing. Remove dressing and add benadryl Q6 PRN. DC once resolved. no anaphylaxis #dispo planning d/c 04/10 moved up to 04/05 given excellent progress f/u PCP Ortho ID as needed #Potential or actual clinically significant medication issues addressed per [facility] regulations: NO Extracted from: Title:SOAP Note: Rehab Note Author:Brissa Rizzo Date:04/03/22 Health Status Allergies: Allergic Reactions (All) Severe Capsaicin- Anaphylaxis. Clarithromycin- Rash and stomach upset. Penicillins- Rash and itching. Remicade- Anaphylactic reaction. Unknown Amoxicillin- Rash. Nickel- Itching. TraMADol- Nausea and vomiting. Nonallergic Reactions (All) Severe Isoniazid- Liver damage. Unknown Acitretin- Swelling of lower limb and conjunctivitis. CeFAZolin- Interstitial nephritis. Gabapentin- Dizziness. Canceled/Inactive Reactions (All) Unknown OxyCODONE- Itching., Allergies (11) Active Severity Reaction Capsaicin Severe Anaphylaxis clarithromycin Severe Rash, Stomach upset penicillins Severe Rash, Itching isoniazid Severe Liver damage Remicade Severe Anaphylactic reaction acitretin Unknown Swelling of lower limb, Conjunctivitis amoxicillin Unknown Rash gabapentin Unknown Dizziness Nickel Unknown Itching ceFAZolin Unknown Interstitial nephritis traMADol Unknown Nausea and vomiting Medications Current medications: (Selected) Inpatient Medications Ordered Ambien: 10 mg = 2 tab(s), Oral, Once a day (at bedtime), PRN: Sleep Benadryl: 25 mg = 1 cap(s), Oral, q6hr, PRN: Itching Colace: 100 mg = 1 cap(s), Oral, BID, PRN: Constipation Dextrose 50% injection: 25 gm = 50 mL, IV Push, q15min, PRN: Blood Glucose Esomeprazole: 40 mg = 1 cap(s), Oral, Daily Humalog (Lispro) Sliding Scale Low Dose Algorithm: Low Dose SCALE, Subcutaneous, QIDACHS Lantus: 24 unit(s) = 0.24 mL, Subcutaneous, Daily MiraLax: 17 gm = 1 packet(s), Oral, Daily, PRN: Constipation Reglan: 5 mg = 0.5 tab(s), Oral, TIDAC Singulair: 10 mg = 1 tab(s), Oral, HS Tylenol: 1,000 mg = 2 tab(s), Oral, QID, PRN: Pain Vitamin C: 500 mg = 1 tab(s), Oral, Daily Zofran: 4 mg = 1 tab(s), Oral, q6hr, PRN: Nausea/Vomiting aspirin: 81 mg = 1 tab(s), Oral, Daily atorvastatin: 10 mg = 1 tab(s), Oral, Daily calcium carbonate: 500 mg = 1 tab(s), Oral, Daily carvedilol: 12.5 mg = 1 tab(s), Oral, BIDWM cholecalciferol: 1,000 unit(s) = 1 tab(s), Oral, Daily doxycycline: 100 mg = 1 cap(s), Oral, BID ferrous sulfate: 325 mg = 1 tab(s), Oral, Daily folic acid: 1 mg = 1 tab(s), Oral, Daily glucagon: 1 mg = 1 vial(s), IM, Daily, PRN: Blood Glucose hydrocortisone 1% topical cream: 1 yanet, TOP, TID, PRN: Itching leflunomide: 20 mg = 1 tab(s), Oral, Daily lidocaine 5% topical film: 3 patch(es), TOP, Daily lidocaine patch removal: Removal of 3 patch(es), TOP, HS lisinopril: 10 mg = 1 tab(s), Oral, qPM methylPREDNISolone 4 mg oral tablet: 4 mg = 1 tab(s), Oral, Daily miconazole topical: 1 yanet, TOP, BID oxyCODONE immediate release: 10 mg = 2 tab(s), Oral, q4hr, PRN: Pain - Severe oxyCODONE immediate release: 5 mg = 1 tab(s), Oral, q4hr, PRN: Pain - Moderate rivaroxaban: 10 mg = 1 tab(s), Oral, Daily senna: 17.2 mg = 2 tab(s), Oral, HS, PRN: Constipation Documented Medications Documented !-albuterol-ipratropium inhalation: 1 puff(s), INH, q6hr, PRN: Shortness of Breath or wheezing, 14.7 gm, 0 Refill(s) !-aspirin 81 mg oral tablet: 81 mg = 1 tab(s), Oral, Daily, 30 tab(s), 0 Refill(s) Ambien 10 mg oral tablet: 10 mg = 1 tab(s), Oral, Once a day (at bedtime), PRN: for sleep, 0 Refill(s) Breo Ellipta 200 mcg-25 mcg/inh inhalation powder: 1 puff(s), INH, Daily, PRN: Shortness of Breath or wheezing, 0 Refill(s) Lantus 100 units/mL subcutaneous solution: 24 unit(s), Subcutaneous, Daily, 10 mL, 0 Refill(s) Nasonex: 1 spray(s), Nasal, Daily, PRN: Allergy symptoms, 0 Refill(s) SITagliptin 50 mg oral tablet: 50 mg = 1 tab(s), Oral, Daily, 30 tab(s), 0 Refill(s) Vitamin C 500 mg oral tablet: 500 mg = 1 tab(s), Oral, Daily, 30 tab(s), 0 Refill(s) amLODIPine 10 mg oral tablet: 10 mg = 1 tab(s), Oral, BID, 60 tab(s), 0 Refill(s) atorvastatin 10 mg oral tablet: 10 mg = 1 tab(s), Oral, Daily, 30 tab(s), 0 Refill(s) calcium (as carbonate)-vitamin D 250 mg-125 intl units oral tablet: 1 tab(s), Oral, Daily, 60 tab(s), 0 Refill(s) carvedilol 12.5 mg oral tablet: 12.5 mg = 1 tab(s), Oral, BID, 60 tab(s), 0 Refill(s) esomeprazole: 40 mg, Oral, HS, 0 Refill(s) folic acid 1 mg oral tablet: 1 mg = 1 tab(s), Oral, Daily, 90 tab(s), 0 Refill(s) leflunomide 20 mg oral tablet: 20 mg = 1 tab(s), Oral, Daily, 30 tab(s), 0 Refill(s) lisinopril 10 mg oral tablet: 10 mg = 1 tab(s), Oral, Daily, 30 tab(s), 0 Refill(s) methylPREDNISolone 4 mg oral tablet: 4 mg = 1 tab(s), Oral, Daily, for 7 day(s), 7 tab(s), 0 Refill(s) multivitamin: 1 tab(s), Oral, Daily, 0 Refill(s) oxyCODONE 5 mg oral capsule: 5 mg = 1 cap(s), Oral, q4hr, PRN: Pain - Moderate, 0 Refill(s) oxyCODONE 5 mg oral tablet: 10 mg = 2 tab(s), Oral, q4hr, PRN: for pain, 0 Refill(s), Medications (33) Active Scheduled: (21) ascorbic acid 500 mg Tab [[facility]] 500 mg 1 tab(s), Oral, Daily aspirin 81 mg Oral EC Tab [facility]] 81 mg 1 tab(s), Oral, Daily atorvastatin 10 mg Tab [[facility]] 10 mg 1 tab(s), Oral, Daily calcium carbonate 500 mg Chew Tab [[facility]] 500 mg 1 tab(s), Oral, Daily carvedilol 12.5 mg Tab [[facility]] 12.5 mg 1 tab(s), Oral, BIDWM cholecalciferol (25 mcg) 1000 units tablet [[facility]] 1,000 unit(s) 1 tab(s), Oral, Daily doxycycline hyclate 100 mg Cap [[facility]] 100 mg 1 cap(s), Oral, BID Esomeprazole 40 mg 1 cap(s), Oral, Daily ferrous sulfate [address] Tab [[facility]] 325 mg 1 tab(s), Oral, Daily folic acid 1 mg Tab [facility]] 1 mg 1 tab(s), Oral, Daily insulin glargine 100 units/mL SubQ [[facility]] 24 unit(s) 0.24 mL, Subcutaneous, Daily insulin lispro (HumaLOG) 100 units/mL SubQ PEN [[facility]] Low Dose SCALE, Subcutaneous, QIDACHS leflunomide 20 mg 1 tab(s), Oral, Daily lidocaine 5% Transdermal Patch [[facility]] 3 patch(es), TOP, Daily lidocaine patch removal [[facility]] Removal of 3 patch(es), TOP, HS lisinopril 10 mg Tab [[facility]] 10 mg 1 tab(s), Oral, qPM methylPREDNISolone 4 mg Tab [[facility]] 4 mg 1 tab(s), Oral, Daily metoclopramide 10 mg Tab [[facility]] 5 mg 0.5 tab(s), Oral, TIDAC miconazole Top 2% Crm [[facility]] 1 yanet, TOP, BID montelukast 10 mg Tab [[facility]] 10 mg 1 tab(s), Oral, HS rivaroxaban 10mg tablet [[facility]] 10 mg 1 tab(s), Oral, Daily Continuous: (0) PRN: (12) acetaminophen 500 mg Tab [[facility]] 1,000 mg 2 tab(s), Oral, QID dextrose 50% IV Donya 50 mL [[facility]] 25 gm 50 mL, IV Push, q15min diphenhydrAMINE 25 mg Cap [[facility]] 25 mg 1 cap(s), Oral, q6hr docusate sodium 100 mg Cap [[facility]] 100 mg 1 cap(s), Oral, BID glucagon recombinant 1 mg Inj [[facility]] 1 mg 1 vial(s), IM, Daily hydrocortisone Top 1% Crm [[facility]] 1 yanet, TOP, TID ondansetron 4 mg Dis Tab [[facility]] 4 mg 1 tab(s), Oral, q6hr oxyCODONE 5 mg Tab [[facility]] 5 mg 1 tab(s), Oral, q4hr oxyCODONE 5 mg Tab [[facility]] 10 mg 2 tab(s), Oral, q4hr polyethylene glycol 3350 Oral Pwdr Recon [[facility]] 17 gm 1 packet(s), Oral, Daily senna 8.6 mg Tab [[facility]] 17.2 mg 2 tab(s), Oral, HS zolpidem 5 mg Tab [[facility]] 10 mg 2 tab(s), Oral, Once a day (at bedtime) . Problem list: All Problems Anemia / [id number] / Confirmed Asthma / 162062139 / Confirmed UTI (urinary tract infection), bacterial / [id number] / Confirmed Chronic pain / [id number] / Confirmed GERD (gastroesophageal reflux disease) / [id number] / Confirmed HTN (hypertension) / 1138614337 / Confirmed Insomnia / 410811014 / Confirmed RA (rheumatoid arthritis) / [id number] / Confirmed, Active Problems (8) Anemia Asthma Chronic pain GERD (gastroesophageal reflux disease) HTN (hypertension) Insomnia RA (rheumatoid arthritis) UTI (urinary tract infection), bacterial Impression and Plan #Failed left TKA/ left knee fusion per Dr. Reed at [facility] on 03/19/22. Is WBAT. Will need f/u with ortho at . She is to maintain on suppression with doxycycline x 90 days. Will need PT and OT 90 min each discipline for at least 5 days/week. Goals of mod I with mobility and ADLs using right walking boot. Estimated Discharge Date: 04/10 #N/V, diarrhea has recent h/o diagnosis diabetic gastroparesis, and also h/o candidial esophagitis s/p fluconazole reglan prn changed to scheduled for nausea and seems improved multiple antibiotics (doxy and cipro) may also be contributing, but now off cipro given watery stools today, checking Cdiff #Right foot AVN. Has been managing with right walking boot fpc. #Chronic pain. Patient has become opiate dependent. Pain management will be a challenge. Will continue with multiple modality approach including scheduled Tylenol, lidoderm patches, cryotherapy. Encourage cutting back from 10 to 5 prn #RA/psoriatic arthritis. Will continue with home meds of leflunomide 20 mg daily, methylprednisolone 4 mg daily. #UTI. 5 day course of Cipro 500 mg BID completed #DM2. Continue with Lantus 24 units daily and SSI. BGs well controlled in 100s #Asthma. Continue with montelukast and prn inhalers. #HTN. Continue with lisinopril and amlodipine #Anemia due to blood loss. She's s/p 2 unit PRBC. Reportedly had trouble with 3rd PRBC and thus discontinued. 03/27: Hgb 7.7. recheck in AM #Obesity. Nutritional consult. #Insomnia. Patient wants to continue Ambien which she takes at home. #CKD: Cr at 1.16. Continue to monitor and avoid nephrotoxic agents. Cr was also slightly elevated at [facility] and being monitored. #GERD: On PPI (prefers Nexium but on Protonix here) If brings her medicine from home will change. #allergic reaction: R knee, likely secondary to surgical dressing. Remove dressing and add benadryl Q6 PRN. DC once resolved. no anaphylaxis #dispo planning d/c 04/10 f/u PCP Ortho ID as needed #Potential or actual clinically significant medication issues addressed per [facility] regulations: NO Extracted from: Title:SOAP Note: Rehab Note Author:Brissa Rizzo Date:04/02/22 Health Status Allergies: Allergic Reactions (All) Severe Capsaicin- Anaphylaxis. Clarithromycin- Rash and stomach upset. Penicillins- Rash and itching. Remicade- Anaphylactic reaction. Unknown Amoxicillin- Rash. Nickel- Itching. TraMADol- Nausea and vomiting. Nonallergic Reactions (All) Severe Isoniazid- Liver damage. Unknown Acitretin- Swelling of lower limb and conjunctivitis. CeFAZolin- Interstitial nephritis. Gabapentin- Dizziness. Canceled/Inactive Reactions (All) Unknown OxyCODONE- Itching., Allergies (11) Active Severity Reaction Capsaicin Severe Anaphylaxis clarithromycin Severe Rash, Stomach upset penicillins Severe Rash, Itching isoniazid Severe Liver damage Remicade Severe Anaphylactic reaction acitretin Unknown Swelling of lower limb, Conjunctivitis amoxicillin Unknown Rash gabapentin Unknown Dizziness Nickel Unknown Itching ceFAZolin Unknown Interstitial nephritis traMADol Unknown Nausea and vomiting Medications Current medications: (Selected) Inpatient Medications Ordered Ambien: 10 mg = 2 tab(s), Oral, Once a day (at bedtime), PRN: Sleep Benadryl: 25 mg = 1 cap(s), Oral, q6hr, PRN: Itching Colace: 100 mg = 1 cap(s), Oral, BID Dextrose 50% injection: 25 gm = 50 mL, IV Push, q15min, PRN: Blood Glucose Esomeprazole: 40 mg = 1 cap(s), Oral, Daily Humalog (Lispro) Sliding Scale Low Dose Algorithm: Low Dose SCALE, Subcutaneous, QIDACHS Lantus: 24 unit(s) = 0.24 mL, Subcutaneous, Daily MiraLax: 17 gm = 1 packet(s), Oral, Daily, PRN: Constipation Reglan: 5 mg = 0.5 tab(s), Oral, TIDAC Singulair: 10 mg = 1 tab(s), Oral, HS Tylenol: 1,000 mg = 2 tab(s), Oral, QID, PRN: Pain Vitamin C: 500 mg = 1 tab(s), Oral, Daily Zofran: 4 mg = 1 tab(s), Oral, q4hr, PRN: Nausea/Vomiting Zofran: 4 mg = 1 tab(s), Oral, q6hr, PRN: Nausea/Vomiting aspirin: 81 mg = 1 tab(s), Oral, Daily atorvastatin: 10 mg = 1 tab(s), Oral, Daily budesonide-formoterol: 2 puff(s), INH, BID RT calcium carbonate: 500 mg = 1 tab(s), Oral, Daily carvedilol: 12.5 mg = 1 tab(s), Oral, BIDWM cholecalciferol: 1,000 unit(s) = 1 tab(s), Oral, Daily doxycycline: 100 mg = 1 cap(s), Oral, BID ferrous sulfate: 325 mg = 1 tab(s), Oral, Daily folic acid: 1 mg = 1 tab(s), Oral, Daily glucagon: 1 mg = 1 vial(s), IM, Daily, PRN: Blood Glucose hydrocortisone 1% topical cream: 1 yanet, TOP, TID, PRN: Itching leflunomide: 20 mg = 1 tab(s), Oral, Daily lidocaine 5% topical film: 3 patch(es), TOP, Daily lidocaine patch removal: Removal of 3 patch(es), TOP, HS lisinopril: 10 mg = 1 tab(s), Oral, qPM methylPREDNISolone 4 mg oral tablet: 4 mg = 1 tab(s), Oral, Daily miconazole topical: 1 yanet, TOP, BID oxyCODONE immediate release: 10 mg = 2 tab(s), Oral, q4hr, PRN: Pain - Severe oxyCODONE immediate release: 5 mg = 1 tab(s), Oral, q4hr, PRN: Pain - Moderate rivaroxaban: 10 mg = 1 tab(s), Oral, Daily senna: 17.2 mg = 2 tab(s), Oral, HS Documented Medications Documented !-albuterol-ipratropium inhalation: 1 puff(s), INH, q6hr, PRN: Shortness of Breath or wheezing, 14.7 gm, 0 Refill(s) !-aspirin 81 mg oral tablet: 81 mg = 1 tab(s), Oral, Daily, 30 tab(s), 0 Refill(s) Ambien 10 mg oral tablet: 10 mg = 1 tab(s), Oral, Once a day (at bedtime), PRN: for sleep, 0 Refill(s) Breo Ellipta 200 mcg-25 mcg/inh inhalation powder: 1 puff(s), INH, Daily, PRN: Shortness of Breath or wheezing, 0 Refill(s) Lantus 100 units/mL subcutaneous solution: 24 unit(s), Subcutaneous, Daily, 10 mL, 0 Refill(s) Nasonex: 1 spray(s), Nasal, Daily, PRN: Allergy symptoms, 0 Refill(s) SITagliptin 50 mg oral tablet: 50 mg = 1 tab(s), Oral, Daily, 30 tab(s), 0 Refill(s) Vitamin C 500 mg oral tablet: 500 mg = 1 tab(s), Oral, Daily, 30 tab(s), 0 Refill(s) amLODIPine 10 mg oral tablet: 10 mg = 1 tab(s), Oral, BID, 60 tab(s), 0 Refill(s) atorvastatin 10 mg oral tablet: 10 mg = 1 tab(s), Oral, Daily, 30 tab(s), 0 Refill(s) calcium (as carbonate)-vitamin D 250 mg-125 intl units oral tablet: 1 tab(s), Oral, Daily, 60 tab(s), 0 Refill(s) carvedilol 12.5 mg oral tablet: 12.5 mg = 1 tab(s), Oral, BID, 60 tab(s), 0 Refill(s) esomeprazole: 40 mg, Oral, HS, 0 Refill(s) folic acid 1 mg oral tablet: 1 mg = 1 tab(s), Oral, Daily, 90 tab(s), 0 Refill(s) leflunomide 20 mg oral tablet: 20 mg = 1 tab(s), Oral, Daily, 30 tab(s), 0 Refill(s) lisinopril 10 mg oral tablet: 10 mg = 1 tab(s), Oral, Daily, 30 tab(s), 0 Refill(s) methylPREDNISolone 4 mg oral tablet: 4 mg = 1 tab(s), Oral, Daily, for 7 day(s), 7 tab(s), 0 Refill(s) multivitamin: 1 tab(s), Oral, Daily, 0 Refill(s) oxyCODONE 5 mg oral capsule: 5 mg = 1 cap(s), Oral, q4hr, PRN: Pain - Moderate, 0 Refill(s) oxyCODONE 5 mg oral tablet: 10 mg = 2 tab(s), Oral, q4hr, PRN: for pain, 0 Refill(s), Medications (35) Active Scheduled: (24) ascorbic acid 500 mg Tab [[facility]] 500 mg 1 tab(s), Oral, Daily aspirin 81 mg Oral EC Tab [[facility]] 81 mg 1 tab(s), Oral, Daily atorvastatin 10 mg Tab [[facility]] 10 mg 1 tab(s), Oral, Daily budesonide-formoterol 160/4.5 mcg Inh [[facility]] 2 puff(s), INH, BID RT calcium carbonate 500 mg Chew Tab [[facility]] 500 mg 1 tab(s), Oral, Daily carvedilol 12.5 mg Tab [[facility]] 12.5 mg 1 tab(s), Oral, BIDWM cholecalciferol (25 mcg) 1000 units tablet [[facility]] 1,000 unit(s) 1 tab(s), Oral, Daily docusate sodium 100 mg Cap [[facility]] 100 mg 1 cap(s), Oral, BID doxycycline hyclate 100 mg Cap [[facility]] 100 mg 1 cap(s), Oral, BID Esomeprazole 40 mg 1 cap(s), Oral, Daily ferrous sulfate [address] Tab [[facility]] 325 mg 1 tab(s), Oral, Daily folic acid 1 mg Tab [[facility]] 1 mg 1 tab(s), Oral, Daily insulin glargine 100 units/mL SubQ [[facility]] 24 unit(s) 0.24 mL, Subcutaneous, Daily insulin lispro (HumaLOG) 100 units/mL SubQ PEN [[facility]] Low Dose SCALE, Subcutaneous, QIDACHS leflunomide 20 mg 1 tab(s), Oral, Daily lidocaine 5% Transdermal Patch [[facility]] 3 patch(es), TOP, Daily lidocaine patch removal [[facility]] Removal of 3 patch(es), TOP, HS lisinopril 10 mg Tab [[facility]] 10 mg 1 tab(s), Oral, qPM methylPREDNISolone 4 mg Tab [[facility]] 4 mg 1 tab(s), Oral, Daily metoclopramide 10 mg Tab [[facility]] 5 mg 0.5 tab(s), Oral, TIDAC miconazole Top 2% Crm [[facility]] 1 yanet, TOP, BID montelukast 10 mg Tab [[facility]] 10 mg 1 tab(s), Oral, HS rivaroxaban 10mg tablet [[facility]] 10 mg 1 tab(s), Oral, Daily senna 8.6 mg Tab [[facility]] 17.2 mg 2 tab(s), Oral, HS Continuous: (0) PRN: (11) acetaminophen 500 mg Tab [[facility]] 1,000 mg 2 tab(s), Oral, QID dextrose 50% IV Donya 50 mL [[facility]] 25 gm 50 mL, IV Push, q15min diphenhydrAMINE 25 mg Cap [[facility]] 25 mg 1 cap(s), Oral, q6hr glucagon recombinant 1 mg Inj [[facility]] 1 mg 1 vial(s), IM, Daily hydrocortisone Top 1% Crm [[facility]] 1 yanet, TOP, TID ondansetron 4 mg Dis Tab [[facility]] 4 mg 1 tab(s), Oral, q4hr ondansetron 4 mg Dis Tab [[facility]] 4 mg 1 tab(s), Oral, q6hr oxyCODONE 5 mg Tab [[facility]] 5 mg 1 tab(s), Oral, q4hr oxyCODONE 5 mg Tab [[facility]] 10 mg 2 tab(s), Oral, q4hr polyethylene glycol 3350 Oral Pwdr Recon [[facility]] 17 gm 1 packet(s), Oral, Daily zolpidem 5 mg Tab [[facility]] 10 mg 2 tab(s), Oral, Once a day (at bedtime) . Problem list: All Problems Anemia / [id number] / Confirmed Asthma / [id number] / Confirmed UTI (urinary tract infection), bacterial / [id number] / Confirmed Chronic pain / [id number] / Confirmed GERD (gastroesophageal reflux disease) / [id number] / Confirmed HTN (hypertension) / 9527209214 / Confirmed Insomnia / [id number] / Confirmed RA (rheumatoid arthritis) / [id number] / Confirmed, Active Problems (8) Anemia Asthma Chronic pain GERD (gastroesophageal reflux disease) HTN (hypertension) Insomnia RA (rheumatoid arthritis) UTI (urinary tract infection), bacterial Impression and Plan #Failed left TKA/ left knee fusion per Dr. Reed at [facility] on 03/19/22. Is WBAT. Will need f/u with ortho at . She is to maintain on suppression with doxycycline x 90 days. Will need PT and OT 90 min each discipline for at least 5 days/week. Goals of mod I with mobility and ADLs using right walking boot. 03/28: Team conference with patient in attendance: RN: problems with N/V. medicating with zofran and reglan, BM pattern every other day, had one yesterday. Pain with prn oxycodone, Tylenol. PT: Working on getting left foot flat to allow better position and weight bear on LLE. LTG of independent with transfers and wheelchair level mobility. (gait goals probably as outpatient) OT: Working on ADL training with adaptive equipment. Today transferred stand-pivot (first time). TR: learning leisure activities that patient enjoys and will encourage more while here. Social work: will arrange home health PT OT. Estimated Discharge Date: 04/10 #N/V, diarrhea has recent h/o diagnosis diabetic gastroparesis, and also h/o candidial esophagitis s/p fluconazole reglan prn changed to scheduled for nausea multiple antibiotics (doxy and cipro) may also be contributing, but now off cipro #Right foot AVN. Has been managing with right walking boot [employer] transportation intermediary. #Chronic pain. Patient has become opiate dependent. Pain management will be a challenge. Will continue with multiple modality approach including scheduled Tylenol, lidoderm patches, cryotherapy. Encourage cutting back from 10 to 5 prn #RA/psoriatic arthritis. Will continue with home meds of leflunomide 20 mg daily, methylprednisolone 4 mg daily. #UTI. 5 day course of Cipro 500 mg BID completed #DM2. Continue with Lantus 24 units daily and SSI. BGs well controlled in 100s #Asthma. Continue with montelukast and prn inhalers. #HTN. Continue with lisinopril and amlodipine #Anemia due to blood loss. She's s/p 2 unit PRBC. Reportedly had trouble with 3rd PRBC and thus discontinued. 03/27: Hgb 7.7. recheck in AM #Obesity. Nutritional consult. #Insomnia. Patient wants to continue Ambien which she takes at home. #CKD: Cr at 1.16. Continue to monitor and avoid nephrotoxic agents. Cr was also slightly elevated at [facility] and being monitored. #GERD: On PPI (prefers Nexium but on Protonix here) If brings her medicine from home will change. #allergic reaction: R knee, likely secondary to surgical dressing. Remove dressing and add benadryl Q6 PRN. DC once resolved. no anaphylaxis #dispo planning d/c 04/10 f/u PCP Ortho ID as needed #Potential or actual clinically significant medication issues addressed per [facility] regulations: No potentially clinically significant medication issues. YES reglan scheduled Did the facility complete prescribed/recommended actions in response to the identified potentially clinically significant medication issues by midnight of the next calendar day? YES ADDENDUM 15 min >50% spent on counselling and coordination of care Extracted from: Title:SOAP Note: Rehab Note Author:Brissa Rizzo Date:04/01/22 Health Status Allergies: Allergic Reactions (All) Severe Capsaicin- Anaphylaxis. Clarithromycin- Rash and stomach upset. Penicillins- Rash and itching. Remicade- Anaphylactic reaction. Unknown Amoxicillin- Rash. Nickel- Itching. TraMADol- Nausea and vomiting. Nonallergic Reactions (All) Severe Isoniazid- Liver damage. Unknown Acitretin- Swelling of lower limb and conjunctivitis. CeFAZolin- Interstitial nephritis. Gabapentin- Dizziness. Canceled/Inactive Reactions (All) Unknown OxyCODONE- Itching., Allergies (11) Active Severity Reaction Capsaicin Severe Anaphylaxis clarithromycin Severe Rash, Stomach upset penicillins Severe Rash, Itching isoniazid Severe Liver damage Remicade Severe Anaphylactic reaction acitretin Unknown Swelling of lower limb, Conjunctivitis amoxicillin Unknown Rash gabapentin Unknown Dizziness Nickel Unknown Itching ceFAZolin Unknown Interstitial nephritis traMADol Unknown Nausea and vomiting Medications Current medications: (Selected) Inpatient Medications Ordered Ambien: 10 mg = 2 tab(s), Oral, Once a day (at bedtime), PRN: Sleep Benadryl: 25 mg = 1 cap(s), Oral, q6hr, PRN: Itching Colace: 100 mg = 1 cap(s), Oral, BID Dextrose 50% injection: 25 gm = 50 mL, IV Push, q15min, PRN: Blood Glucose Esomeprazole: 40 mg = 1 cap(s), Oral, Daily Humalog (Lispro) Sliding Scale Low Dose Algorithm: Low Dose SCALE, Subcutaneous, QIDACHS Lantus: 24 unit(s) = 0.24 mL, Subcutaneous, Daily MiraLax: 17 gm = 1 packet(s), Oral, Daily, PRN: Constipation Reglan: 5 mg = 0.5 tab(s), Oral, q6hr, PRN: Nausea/Vomiting Singulair: 10 mg = 1 tab(s), Oral, HS Tylenol: 1,000 mg = 2 tab(s), Oral, QID, PRN: Pain Vitamin C: 500 mg = 1 tab(s), Oral, Daily Zofran: 4 mg = 1 tab(s), Oral, q4hr, PRN: Nausea/Vomiting aspirin: 81 mg = 1 tab(s), Oral, Daily atorvastatin: 10 mg = 1 tab(s), Oral, Daily budesonide-formoterol: 2 puff(s), INH, BID RT calcium carbonate: 500 mg = 1 tab(s), Oral, Daily carvedilol: 12.5 mg = 1 tab(s), Oral, BIDWM cholecalciferol: 1,000 unit(s) = 1 tab(s), Oral, Daily doxycycline: 100 mg = 1 cap(s), Oral, BID ferrous sulfate: 325 mg = 1 tab(s), Oral, Daily folic acid: 1 mg = 1 tab(s), Oral, Daily glucagon: 1 mg = 1 vial(s), IM, Daily, PRN: Blood Glucose hydrocortisone 1% topical cream: 1 yanet, TOP, TID, PRN: Itching leflunomide: 20 mg = 1 tab(s), Oral, Daily lidocaine 5% topical film: 3 patch(es), TOP, Daily lidocaine patch removal: Removal of 3 patch(es), TOP, HS lisinopril: 10 mg = 1 tab(s), Oral, qPM methylPREDNISolone 4 mg oral tablet: 4 mg = 1 tab(s), Oral, Daily miconazole topical: 1 yanet, TOP, BID oxyCODONE immediate release: 10 mg = 2 tab(s), Oral, q4hr, PRN: Pain - Severe oxyCODONE immediate release: 5 mg = 1 tab(s), Oral, q4hr, PRN: Pain - Moderate rivaroxaban: 10 mg = 1 tab(s), Oral, Daily senna: 17.2 mg = 2 tab(s), Oral, HS Documented Medications Documented !-albuterol-ipratropium inhalation: 1 puff(s), INH, q6hr, PRN: Shortness of Breath or wheezing, 14.7 gm, 0 Refill(s) !-aspirin 81 mg oral tablet: 81 mg = 1 tab(s), Oral, Daily, 30 tab(s), 0 Refill(s) Ambien 10 mg oral tablet: 10 mg = 1 tab(s), Oral, Once a day (at bedtime), PRN: for sleep, 0 Refill(s) Breo Ellipta 200 mcg-25 mcg/inh inhalation powder: 1 puff(s), INH, Daily, PRN: Shortness of Breath or wheezing, 0 Refill(s) Lantus 100 units/mL subcutaneous solution: 24 unit(s), Subcutaneous, Daily, 10 mL, 0 Refill(s) Nasonex: 1 spray(s), Nasal, Daily, PRN: Allergy symptoms, 0 Refill(s) SITagliptin 50 mg oral tablet: 50 mg = 1 tab(s), Oral, Daily, 30 tab(s), 0 Refill(s) Vitamin C 500 mg oral tablet: 500 mg = 1 tab(s), Oral, Daily, 30 tab(s), 0 Refill(s) amLODIPine 10 mg oral tablet: 10 mg = 1 tab(s), Oral, BID, 60 tab(s), 0 Refill(s) atorvastatin 10 mg oral tablet: 10 mg = 1 tab(s), Oral, Daily, 30 tab(s), 0 Refill(s) calcium (as carbonate)-vitamin D 250 mg-125 intl units oral tablet: 1 tab(s), Oral, Daily, 60 tab(s), 0 Refill(s) carvedilol 12.5 mg oral tablet: 12.5 mg = 1 tab(s), Oral, BID, 60 tab(s), 0 Refill(s) esomeprazole: 40 mg, Oral, HS, 0 Refill(s) folic acid 1 mg oral tablet: 1 mg = 1 tab(s), Oral, Daily, 90 tab(s), 0 Refill(s) leflunomide 20 mg oral tablet: 20 mg = 1 tab(s), Oral, Daily, 30 tab(s), 0 Refill(s) lisinopril 10 mg oral tablet: 10 mg = 1 tab(s), Oral, Daily, 30 tab(s), 0 Refill(s) methylPREDNISolone 4 mg oral tablet: 4 mg = 1 tab(s), Oral, Daily, for 7 day(s), 7 tab(s), 0 Refill(s) multivitamin: 1 tab(s), Oral, Daily, 0 Refill(s) oxyCODONE 5 mg oral capsule: 5 mg = 1 cap(s), Oral, q4hr, PRN: Pain - Moderate, 0 Refill(s) oxyCODONE 5 mg oral tablet: 10 mg = 2 tab(s), Oral, q4hr, PRN: for pain, 0 Refill(s), Medications (34) Active Scheduled: (23) ascorbic acid 500 mg Tab [[facility]] 500 mg 1 tab(s), Oral, Daily aspirin 81 mg Oral EC Tab [[facility]] 81 mg 1 tab(s), Oral, Daily atorvastatin 10 mg Tab [[facility]] 10 mg 1 tab(s), Oral, Daily budesonide-formoterol 160/4.5 mcg Inh [[facility]] 2 puff(s), INH, BID RT calcium carbonate 500 mg Chew Tab [[facility]] 500 mg 1 tab(s), Oral, Daily carvedilol 12.5 mg Tab [[facility]] 12.5 mg 1 tab(s), Oral, BIDWM cholecalciferol (25 mcg) 1000 units tablet [[facility]] 1,000 unit(s) 1 tab(s), Oral, Daily docusate sodium 100 mg Cap [[facility]] 100 mg 1 cap(s), Oral, BID doxycycline hyclate 100 mg Cap [[facility]] 100 mg 1 cap(s), Oral, BID Esomeprazole 40 mg 1 cap(s), Oral, Daily ferrous sulfate [address] Tab [[facility]] 325 mg 1 tab(s), Oral, Daily folic acid 1 mg Tab [[facility]] 1 mg 1 tab(s), Oral, Daily insulin glargine 100 units/mL SubQ [[facility]] 24 unit(s) 0.24 mL, Subcutaneous, Daily insulin lispro (HumaLOG) 100 units/mL SubQ PEN [[facility]] Low Dose SCALE, Subcutaneous, QIDACHS leflunomide 20 mg 1 tab(s), Oral, Daily lidocaine 5% Transdermal Patch [[facility]] 3 patch(es), TOP, Daily lidocaine patch removal [[facility]] Removal of 3 patch(es), TOP, HS lisinopril 10 mg Tab [[facility]] 10 mg 1 tab(s), Oral, qPM methylPREDNISolone 4 mg Tab [[facility]] 4 mg 1 tab(s), Oral, Daily miconazole Top 2% Crm [[facility]] 1 yanet, TOP, BID montelukast 10 mg Tab [[facility]] 10 mg 1 tab(s), Oral, HS rivaroxaban 10mg tablet [[facility]] 10 mg 1 tab(s), Oral, Daily senna 8.6 mg Tab [[facility]] 17.2 mg 2 tab(s), Oral, HS Continuous: (0) PRN: (11) acetaminophen 500 mg Tab [[facility]] 1,000 mg 2 tab(s), Oral, QID dextrose 50% IV Donya 50 mL [[facility]] 25 gm 50 mL, IV Push, q15min diphenhydrAMINE 25 mg Cap [[facility]] 25 mg 1 cap(s), Oral, q6hr glucagon recombinant 1 mg Inj [[facility]] 1 mg 1 vial(s), IM, Daily hydrocortisone Top 1% Crm [[facility]] 1 yanet, TOP, TID metoclopramide 10 mg Tab [[facility]] 5 mg 0.5 tab(s), Oral, q6hr ondansetron 4 mg Dis Tab [[facility]] 4 mg 1 tab(s), Oral, q4hr oxyCODONE 5 mg Tab [[facility]] 5 mg 1 tab(s), Oral, q4hr oxyCODONE 5 mg Tab [[facility]] 10 mg 2 tab(s), Oral, q4hr polyethylene glycol 3350 Oral Pwdr Recon [[facility]] 17 gm 1 packet(s), Oral, Daily zolpidem 5 mg Tab [[facility]] 10 mg 2 tab(s), Oral, Once a day (at bedtime) . Problem list: All Problems Anemia / [id number] / Confirmed Asthma / [id number] / Confirmed UTI (urinary tract infection), bacterial / [id number] / Confirmed Chronic pain / 323646462 / Confirmed GERD (gastroesophageal reflux disease) / 442726105 / Confirmed HTN (hypertension) / 6616484656 / Confirmed Insomnia / 084667988 / Confirmed RA (rheumatoid arthritis) / 092679828 / Confirmed, Active Problems (8) Anemia Asthma Chronic pain GERD (gastroesophageal reflux disease) HTN (hypertension) Insomnia RA (rheumatoid arthritis) UTI (urinary tract infection), bacterial Impression and Plan #Failed left TKA/ left knee fusion per Dr. Reed at [facility] on 03/19/22. Is WBAT. Will need f/u with ortho at . She is to maintain on suppression with doxycycline x 90 days. Will need PT and OT 90 min each discipline for at least 5 days/week. Goals of mod I with mobility and ADLs using right walking boot. 03/28: Team conference with patient in attendance: RN: problems with N/V. medicating with zofran and reglan, BM pattern every other day, had one yesterday. Pain with prn oxycodone, Tylenol. PT: Working on getting left foot flat to allow better position and weight bear on LLE. LTG of independent with transfers and wheelchair level mobility. (gait goals probably as outpatient) OT: Working on ADL training with adaptive equipment. Today transferred stand-pivot (first time). TR: learning leisure activities that patient enjoys and will encourage more while here. Social work: will arrange home health PT OT. Estimated Discharge Date: 04/10 #Right foot AVN. Has been managing with right walking boot [employer] intermediary. #Chronic pain. Patient has become opiate dependent. Pain management will be a challenge. Will continue with multiple modality approach including scheduled Tylenol, lidoderm patches, cryotherapy #RA/psoriatic arthritis. Will continue with home meds of leflunomide 20 mg daily, methylprednisolone 4 mg daily. #UTI. 5 day course of Cipro 500 mg BID completed #DM2. Continue with Lantus 24 units daily and SSI #Asthma. Continue with montelukast and prn inhalers. #HTN. Continue with lisinopril and amlodipine #Anemia due to blood loss. She's s/p 2 unit PRBC. Reportedly had trouble with 3rd PRBC and thus discontinued. 03/27: Hgb 7.7. recheck in AM #Obesity. Nutritional consult. #Insomnia. Patient wants to continue Ambien which she takes at home. #CKD: Cr at 1.16. Continue to monitor and avoid nephrotoxic agents. Cr was also slightly elevated at [facility] and being monitored. #GERD: On PPI (prefers Nexium but on Protonix here) If brings her medicine from home will change. #allergic reaction: R knee, likely secondary to surgical dressing. Remove dressing and add benadryl Q6 PRN. DC once resolved. no anaphylaxis #dispo planning d/c 04/10 f/u PCP Ortho ID as needed #Potential or actual clinically significant medication issues addressed per CMS regulations: No potentially clinically significant medication issues. Extracted from: Title:nursing Author:Erica Gu Date: Pt a 66 yo female arrived fr [facility] at 1410, via ambulance on stretcher, s/p L Knee fusion, spacer removal, (long hospital stay, pt developed foot drop on L, decubitus ulcer on sacrum/improved, small dried area, blanchable erythema on admission. Meplix in place. pt transferred from stretcher to bed with 4 assist and back board. Pt is alert and oriented x 4, able to make needs known. Hx; MDII, HTN, HLD, MOELLER, GERD, Psoriatic arthritis, OA, TB (latent), Scoliosis, Asthma. VSS assessment benign, HRR, lungs clear/lower dim, + BS x4 (last BM on 03/24). Pt able to answer admission questions. Pt has NO advanced directives. Belongings documented in admission history. Admission process initiated. Wheelchair, FWW and BSC provided. Falls prevention sheet signed, Orientation to call jiang, telephone and TV remote gone over, pt has been informed to use call jiang before getting OOB. pt's vaccines are current, will bring in medications and clothing tomorrow. pt is allergic to PEPPERS, including chili peppers, kitchen informed, Sid meet with pt Functional Status 04/05/22 History of Fall in Last 3 Months [place] N o 04/04/22 Mobility Ant Slightly limited Bathing ADL Index Requires assistance (1) Dressing ADL Index Requires assistance (1) Toileting ADL Index Requires assistance (1) Transferring Bed or Chair ADL Index Requ ires assistance (1) Continence ADL Index Requires assistance (1) ADLs Minimal assistance 03/26/22 Recent Travel History No recent travel Family Member Travel History No recent t reggie COVID-19 Screening None Medications !-aspirin 81 mg oral tablet 81 mg = 1 tab(s), Oral, Daily, # 30 tab(s), 0 Refill(s) Start Date: 03/26/22 Status: Ordered Ambien 10 mg oral tablet 10 mg = 1 tab(s), Oral, Once a day (at bedtime), PRN PRN for sleep, 0 Refill(s) Start Date: 03/26/22 Status: Ordered atorvastatin 10 mg oral tablet 10 mg = 1 tab(s), Oral, Daily, # 30 tab(s), 0 Refill(s) Start Date: 03/26/22 Status: Ordered Breo Ellipta 200 mcg-25 mcg/inh inhalation powder 1 puff(s), INH, Daily, PRN PRN Shortness of Breath or wheezing, 0 Refill(s) Start Date: 03/26/22 Status: Ordered calcium (as carbonate)-vitamin D 250 mg-125 intl units oral tablet 1 tab(s), Oral, Daily, # 60 tab(s), 0 Refill(s) Start Date: 03/26/22 Status: Ordered carvedilol 12.5 mg oral tablet 12.5 mg = 1 tab(s), Oral, BID, # 60 tab(s), 0 Refill(s) Start Date: 03/26/22 Status: Ordered Colace 100 mg oral capsule 100 mg = 1 cap(s), Oral, BID, PRN PRN Constipation, 0 Refill(s) Start Date: 04/04/22 Status: Ordered doxycycline hyclate 100 mg oral capsule 100 mg = 1 cap(s), Oral, BID, # 60 cap(s), 0 Refill(s), Pharmacy: [id number], 1 cap(s) Oral BID, 165.1, cm, 03/26/22 16:06:00 EDT, Height/Length Dosing, 103.6, kg, 03/27/22 14:22:00 EDT, Weight Dosing Start Date: 04/04/22 Status: Ordered esomeprazole 40 mg, Oral, HS, 0 Refill(s) Start Date: 03/26/22 Status: Ordered ferrous sulfate 325 mg (65 mg elemental iron) oral delayed release tablet 325 mg = 1 tab(s), Oral, Daily, 0 Refill(s) Start Date: 04/04/22 Status: Ordered folic acid 1 mg oral tablet 1 mg = 1 tab(s), Oral, Daily, # 90 tab(s), 0 Refill(s) Start Date: 03/26/22 Status: Ordered Lantus 100 units/mL subcutaneous solution 24 unit(s), Subcutaneous, Daily, # 10 mL, 0 Refill(s) Start Date: 03/26/22 Status: Ordered leflunomide 20 mg oral tablet 20 mg = 1 tab(s), Oral, Daily, # 30 tab(s), 0 Refill(s) Start Date: 03/26/22 Status: Ordered lisinopril 10 mg oral tablet 10 mg = 1 tab(s), Oral, Daily, # 30 tab(s), 0 Refill(s) Start Date: 03/26/22 Status: Ordered methylPREDNISolone 4 mg oral tablet 4 mg = 1 tab(s), Oral, Daily, # 7 tab(s), 0 Refill(s) Start Date: 03/26/22 Stop Date: 04/02/22 Status: Ordered MiraLax 17 gm 1 packet(s), Oral, Daily, PRN PRN Constipation, 0 Refill(s) Start Date: 04/04/22 Status: Ordered multivitamin 1 tab(s), Oral, Daily, 0 Refill(s) Start Date: 03/26/22 Status: Ordered Nasonex 1 spray(s), Nasal, Daily, PRN PRN Allergy symptoms, 0 Refill(s) Start Date: 03/26/22 Status: Ordered oxyCODONE 5 mg oral tablet 5 mg = 1 tab(s), Oral, q4hr, PRN PRN Pain - Severe, # 10 tab(s), 0 Refill(s), Pharmacy: [id number], 1 tab(s) Oral q4hr,PRN:Pain - Severe, 165.1, cm, 03/26/22 16:06:00 EDT, Height/Length Dosing, 103.6, kg, 03/27/22 14:22:00 EDT, Weight Dosing Start Date: 04/04/22 Status: Ordered Reglan 10 mg oral tablet 5 mg = 0.5 tab(s), Oral, TIDAC, # 45 tab(s), 0 Refill(s), Pharmacy: [facility] #[id number], 0.5 tab(s)Oral TIDAC, 165.1, cm, 03/26/22 16:06:00 EDT, Height/Length Dosing, 103.6, kg, 03/27/22 14:22:00 EDT, Weight Dosing Start Date: 04/04/22 Status: Ordered rivaroxaban 10 mg oral tablet 10 mg = 1 tab(s), Oral, Daily, # 30 tab(s), 0 Refill(s), Pharmacy: [facility] #[id number], 1 tab(s) Oral Daily, 165.1, cm, 03/26/22 16:06:00 EDT, Height/Length Dosing, 103.6, kg, 03/27/22 14:22:00 EDT, Weight Dosing Start Date: 04/04/22 Status: Ordered senna 8.6 mg oral tablet 17.2 mg = 2 tab(s), Oral, HS, PRN PRN Constipation, 0 Refill(s) Start Date: 04/04/22 Status: Ordered Singulair 10 mg oral tablet 10 mg = 1 tab(s), Oral, HS, # 30 tab(s), 0 Refill(s), Pharmacy: [facility] #[id number], 1 tab(s) Oral HS, 165.1, cm, 03/26/22 16:06:00 EDT, Height/Length Dosing, 103.6, kg, 03/27/22 14:22:00 EDT, WeightDosing Start Date: 04/04/22 Status: Ordered Tylenol 1,000 mg = 2 tab(s), Oral, QID, PRN PRN Pain, 0 Refill(s) Start Date: 04/04/22 Status: Ordered Vitamin C 500 mg oral tablet 500 mg = 1 tab(s), Oral, Daily, # 30 tab(s), 0 Refill(s) Start Date: 03/26/22 Status: Ordered Mental Status 04/04/22 Sensory Perception Ant No impairment Level of Consciousness Alert Problem List Condition Effective Dates Status Health Status Inform ant Anemia(Confirmed) Active Asthma(Confirmed) Active AVN (avascular necrosis of bone)(Confirmed) Active UTI (urinary tract infection ), bacterial(Confirmed) Active Chronic pain(Confirmed) Active GERD (gastroesophageal reflu x disease)(Confirmed) Active HTN (hypertension)(Confirmed) Active Insomnia(Confirmed) Active Failed total knee arthroplasty(Confirmed) Active RA (rheumatoid arthritis)(Confirmed) Active Results Laboratory List Name Date Glucose POC1 04/05/22 SARS-CoV-2 (COVID-19)/Influenza PCR (Davida t) 04/05/22 Blood Glucose Monitoring POC 04/05/22 Glucose POC1 04/05/22 Glucose POC1 04/05/22 Blood Glucose Monitoring POC 04/04/22 Blood Glucose Monitoring POC 04/01/22 .Hemogram DH (CBC DH) 04/01/22 TIBC DH 04/01/22 Vitamin B12 Level DH 04/01/22 .Hemogram DH (CBC DH) 03/31/22 ABO-Rh. 03/31/22 Antibody Screen Tube. 03/31/22 SARS CoV-2 DH 03/30/22 .Hemogram DH (CBC DH) 03/30/22 Basic Metabolic Panel DH (BMP DH) 03/30/22 Basic Metabolic Panel DH 03/27/22 SARS-CoV-2 (COVID-19)/Influenza PCR (Davida t) 03/26/22 Most recent to oldest [Reference Range]: 1 2 3 Anion Gap DH [5-15 mmol/L] 10 mmol/L (03/30/22 5:05 AM) 11 mmol/L (03/27/22 6:05 AM) Chloride Lvl DH [98-107 mmol/L] 108 mmol/L *HI* (03/30/22 5:05 AM) 108 mmol/L *HI* (03/27/22 6:05 AM) CO2 DH [22-31 mmol/L] 20 mmol/L *LOW* (03/30/22 5:05 AM) 21 mmol/L *LOW* (03/27/22 6:05 AM) Est GFR DH [>=60 mL/min/1.73 m2] 52 mL/min/1.73 m2 1 *LOW* (03/30/22 5:05 AM) 52 mL/min/1.73 m2 2 *LOW* (03/27/22 6:05 AM) Glucose Lvl DH [65-99 mg/dL] 111 mg/dL *HI* (03/30/22 5:05 AM) 104 mg/dL *HI* (03/27/22 6:05 AM) Potassium Lvl DH [3.5-5.0 mmol/L] 4.5 mmol/L (03/30/22 5:05 AM) 4.3 mmol/L (03/27/22 6:05 AM) Sodium Lvl DH [135-145 mmol/L] 138 mmol/L (03/30/22 5:05 AM) 139 mmol/L (03/27/22 6:05 AM) BUN DH [8-18 mg/dL] 23 mg/dL *HI* (03/30/22 5:05 AM) 24 mg/dL *HI* (03/27/22 6:05 AM) Calcium Lvl DH [8.5-10.5 mg/dL] 9.1 mg/dL (03/30/22 5:05 AM) 9.0 mg/dL (03/27/22 6:05 AM) Quality Indicator Present Yes (04/01/22 4:45 PM) Creatinine [0.70-1.20 mg/dL] 1.16 mg/dL (03/30/22 5:05 AM) 1.16 mg/dL (03/27/22 6:05 AM) Creatinine 1.05 mg/dL (03/26/22 5:58 AM) ABO-Rh O POS *Unknown* (03/31/22 5:35 AM) Antibody Screen Tube Negative (03/31/22 5:35 AM) Glucose POC [65-99 mg/dL] 116 mg/dL *HI* (04/05/22 11:40 AM) 95 mg/dL (04/05/22 7:21 AM) 166 mg/dL *HI* (04/05/22 12:11 AM) Influenza A [Negative] Negative (04/05/22 10:20 AM) Negative (03/26/22 5:12 PM) Influenza B [Negative] Negative (04/05/22 10:20 AM) Negative (03/26/22 5:12 PM) Hct DH [35.7-45.8 %] 23.5 % *LOW* (04/01/22 5:00 AM) 22.1 % *LOW* (03/31/22 5:35 AM) 21.8 % *LOW* (03/30/22 5:05 AM) Hgb DH [11.7-15.5 g/dL] 7.3 g/dL *LOW* (04/01/22 5:00 AM) 7.0 g/dL *LOW* (03/31/22 5:35 AM) 7.0 g/dL *LOW* (03/30/22 5:05 AM) MCHC DH [31.7-35.0 g/dL] 31.1 g/dL *LOW* (04/01/22 5:00 AM) 31.7 g/dL (03/31/22:35 AM) 32.1 g/dL (03/30/22 5:05 AM) MCH DH [27.1-32.0 pg] 28.2 pg (04/01/22 5:00 AM) 28.7 pg (03/31/22 5:35 AM) 28.9 pg (03/30/22 5:05 AM) MCV DH [82.6-94.4 fL] 90.7 fL (04/01/22 5:00 AM) 90.6 fL (03/31/22:35 AM) 90.1 fL (03/30/22 5:05 AM) MPV DH [7.6-12.9 fL] 8.6 fL (04/01/22 5:00 AM) 8.9 fL (03/31/22:35 AM) 8.4 fL (03/30/22 5:05 AM) Platelet DH [145-357 x10(3)/mcL] 368 x10(3)/mcL *HI* (04/01/22 5:00 AM) 366 x10(3)/mcL *HI* (03/31/22:35 AM) 342 x10(3)/mcL (03/30/22 5:05 AM) RBC DH [4.00-5.21 x10(6)/mcL] 2.59 x10(6)/mcL *LOW* (04/01/22 5:00 AM) 2.44 x10(6)/mcL *LOW* (03/31/22 5:35 AM) 2.42 x10(6)/mcL *LOW* (03/30/22 5:05 AM) RDWCV DH [11.5-14.1 %] 14.7 % *HI* (04/01/22 5:00 AM) 14.7 % *HI* (03/31/22:35 AM) 14.8 % *HI* (03/30/22 5:05 AM) RDWSD DH [37.0-46.0 fL] 49.1 fL *HI* (04/01/22 5:00 AM) 49.1 fL *HI* (03/31/22 5:35 AM) 49.0 fL *HI* (03/30/22 5:05 AM) WBC DH [4.0-9.5 x10(3)/mcL] 7.6 x10(3)/mcL (04/01/22 5:00 AM) 7.3 x10(3)/mcL (03/31/22 5:35 AM) 7.5 x10(3)/mcL (03/30/22 5:05 AM) Blood Glucose, Capillary POC [65-99 mg/dL] 95 mg/dL (04/05/22 7:53 AM) 166 mg/dL *HI* (04/05/22 12:00 AM) 149 mg/dL *HI* (04/04/22 8:14 PM) Iron DH [30-150 mcg/dL] 24 mcg/dL 3 *LOW* (04/01/22 5:00 AM) Iron Sat DH [20-50 %] 18 % 4 *LOW* (04/01/22 5:00 AM) TIBC Calc DH [250-450 mcg/dL] 134 mcg/dL 5 *LOW* (04/01/22 5:00 AM) Vitamin B12 Lvl DH [232-1245 pg/mL] 1462 pg/mL 6 *HI* (04/01/22 5:00 AM) SARS-CoV-2 (COVID-19) RNA DH [Not Detected] Not Detected 7 *NA* (03/30/22 6:20 AM) SARS-CoV-2 (COVID-19) RNA Source DH Nasal 8 *NA* (03/30/22 6:20 AM) Employed in healthcare? No *NA* (04/05/22 10:20 AM) No *NA* (03/26/22 5:12 PM) Symptomatic as defined by CDC? No *NA* (04/05/22 10:20 AM) No *NA* (03/26/22 5:12 PM) Hospitalized due to COVID-19? No *NA* (04/05/22 10:20 AM) No *NA* (03/26/22 5:12 PM) In ICU? No *NA* (04/05/22 10:20 AM) No *NA* (03/26/22 5:12 PM) Group care resident? No *NA* (04/05/22 10:20 AM) No *NA* (03/26/22 5:12 PM) status? Not *NA* (04/05/22 10:20 AM) Not *NA* (03/26/22 5:12 PM) SARS-CoV-2 (COVID-19) PCR [Not Detected] Not Detected (04/05/22 10:20 AM) Not Detected (03/26/22 5:12 PM) 1Result Comment: This patient's estimated GFR was calculated using the 2020 CKD- EPI equation. The estimated GFR can vary from the measured GFR by up to 30% in the absence of rapidly changing kidney function. Assessment of the estimated GFR is not appropriate when creatinine concentrations are rapidly changing. For clinical situations in which a more precise estimate of GFR is necessary, consider alternative methods of GFR estimation such as a 24-hour urine creatinine clearance. Assignment of CKD stage 1-5 for patients with an eGFR near the transition point between stages may be based on clinical assessment of muscle mass and symptoms in addition to eGFR. 2Result Comment: This patient's estimated GFR was calculated using the 2020 CKD- EPI equation. The estimated GFR can vary from the measured GFR by up to 30% in the absence of rapidly changing kidney function. Assessment of the estimated GFR is not appropriate when creatinine concentrations are rapidly changing. For clinical situations in which a more precise estimate of GFR is necessary, consider alternative methods of GFR estimation such as a 24-hour urine creatinine clearance. Assignment of CKD stage 1-5 for patients with an eGFR near the transition point between stages may be based on clinical assessment of muscle mass and symptoms in addition to eGFR. 3Result Comment: Test performed at: [facility], [place] [address] 4Result Comment: Test performed at: [facility], [place] [address] 5Result Comment: Test performed at: [facility], [place] [address] 6Result Comment: Test performed at: [facility], [place] [address] 7Result Comment: This result should be interpreted in combination with the clinical observations, patient history and epidemiological information in making a final diagnosis. For testing of asymptomatic individuals, assay performance characteristics and clinical utility have not been evaluated. Testing for SARS-CoV-2 (Severe acute respiratory syndrome coronavirus 2, formerly known as 2019 novel coronavirus or 2019-nCoV) to aid in the diagnosis of COVID-19 is performed using the [employer] m SARS-CoV-2 Assay as authorized by the FDA Emergency Use Authorization (EUA). This EUA assay is intended for In-vitro Diagnostic (IVD) use with respiratory specimens such as nasopharyngeal swabs collected from individuals during the acute phase of infection. This assay is performed based on the instructions for use provided by [employer] and additional guidance provided by CDC and FDA. Testing is performed in the [facility] within the Department of Pathology and Laboratory Medicine at [facility], certified under the Clinical Laboratory Improvement Amendments of 1988 (CLIA), 42 U.S.C. 263a, to perform high complexity tests. Assay performance has been verified according to clinical laboratory regulatory requirements for use with specimens collected from individuals suspected of COVID-19. Test results are provided above. A result of Not Detected indicates that the viral RNA target is not present above the limit of detection, but does not preclude SARS-CoV-2 infection. False negative results may occur if a specimen is improperly collected, transported or handled; if amplification inhibitors are present; or if inadequate numbers of viral particles are present in the specimen. When a diagnostic test is negative, the possibility of a false negative result should be considered in the context of a patient's recent exposures and the presence of clinical signs and symptoms consistent with COVID-19. A result of Detected indicates that RNA from SARS-CoV-2 was detected and the patient is infected. As required or requested by public health authorities, positive specimens may be sent for additional testing. Positive and negative predictive values for this test are highly dependent on disease prevalence. A result of Invalid indicates that neither the viral RNA targets nor the internal control target was detected. An invalid result suggests the presence of inhibitors. Recollection and re-testing is recommended in the case of an invalid result. CDC COVID-19 criteria for testing on human specimens and clinical management guidance information are available at the CDC Coronavirus Disease 2019 (COVID-19) webpage under Information for Healthcare Professionals (https://www.cdc.gov/coronavirus/2019-ncov/hcp/index.html) Additional information about this and other EUA tests can be found in provider and patient fact sheets at the following FDA website: https://www.fda.gov/medical-devices/sbsxkgxarxe-yscfxic-1992-yxufg-99-ljwfuewek- sbc-osbrycfypfbcpw-sccssgp-devices/spiua-jcdhzmhrgkm-kvoc Test performed at: [facility], [place] [address] 8Result Comment: Test performed at: [facility], [place] [address] Vital Signs Most recent to oldest [Reference Range]: 1 2 3 Temperature Oral [35.8-37.3 DegC] 36.7 DegC (04/05/22 7:00 AM) 36.9 DegC (04/04/22 8:00 AM) 36.9 DegC (04/03/22 7:00 PM) Temperature Oral (DegF) 98.06 DegF (04/05/22 7:00 AM) 98.42 DegF (04/03/22 7:00 PM) 98.06 DegF (04/03/22 7:49 AM) Temperature Tympanic [36.6-38.1 DegC] 36.7 DegC (04/02/22 8:49 PM) Temperature Temporal Artery [36.3-37.8 DegC] 36.8 DegC (04/04/22 7:00 PM) Temperature Temporal Artery (DegF) 98.24 DegF (04/04/22 7:00 PM) Apical Heart Rate [60-100 bpm] 74 bpm (03/28/22 7:35 AM) Peripheral Pulse Rate [60-100 bpm] 71 bpm (04/05/22 7:00 AM) 86 bpm (04/04/22 7:00 PM) 80 bpm (04/04/22 8:38 AM) Respiratory Rate [14-20 br/min] 16 br/min (04/04/22 7:00 PM) 16 br/min (04/03/22 7:00 PM) 18 br/min (04/03/22 7:49 AM) Blood Pressure [90-140/60-90 mmHg] 124/66mmHg (04/05/22 7:00 AM) 149/54mmHg *HI* (04/04/22 8:38 AM) Systolic Blood Pressure [90-140 mmHg] 148 mmHg *HI* (04/04/22 7:00 PM) Diastolic Blood Pressure [60-90 mmHg] 71 mmHg (04/04/22 7:00 PM) Mean Arterial Pressure, Cuff [65-100 mmHg] 85 mmHg (04/05/22 7:00 AM) 97 mmHg (04/04/22 7:00 PM) 79 mmHg (04/03/22 7:00 PM) BP Site Right arm (04/04/22 7:00 PM) Right arm (04/04/22 8:38 AM) Right arm (04/03/22 7:00 PM) SpO2 [92-100 %] 97 % (04/05/22 7:00 AM) 94 % (04/04/22 7:00 PM) 94 % (04/04/22 8:38 AM) SpO2 Location Left hand (04/04/22 7:00 PM) Left hand (04/03/22 7:00 PM) Right hand (04/02/22 8:49 PM) Oxygen Activity Discontinue (03/25/22 6:00 PM) BP Method Automatic (04/04/22 7:00 PM) Automatic (04/03/22 7:00 PM) Automatic (04/02/22 8:49 PM) Height 165.1 cm (03/27/22 4:09 PM) Height/Length Dosing 165.10 cm (03/26/22 4:06 PM) 165.10 cm (03/26/22 3:20 PM) 165.1 cm (03/07/22 2:04 PM) Weight 102.4 kg (04/02/22 12:33 PM) 103.6 kg (03/27/22 4:09 PM) 103.6 kg (03/27/22 10:00 AM) Weight Estimated 102.4 kg (04/02/22 12:33 PM) Weight Dosing 103.6 kg (03/27/22 2:22 PM) 200 kg (03/26/22 4:06 PM) 200 kg (03/26/22 3:20 PM) Body Mass Index Measured 38.01 kg/m2 (03/27/22 4:09 PM) Social History Social History Type Response Smoking Status Smoking tobacco use: Never tobacco user;Never entered on: 03/26/22 Sex Hospital Discharge Instructions Patient Education 04/05/2022 10:01:09 Hospitalist Services Upon Discharge (JUANCHO HART)(CUSTOM) Services Upon Discharge Patient is being discharged home with these services in place: HOME SERVICES: Home Services Discharge - Arrangements and orders for follow-up care Service Provider: [facility] Will call patient with start of care date Contact Service(s) to be Provided: PT OT RN Frequency: Additional Comments: Date of the face to face encounter: 04/04/22 This visit was related to left knee infection s/p fusion for which the patient needs skilled home health services.?? My clinical findings support the need for skilled: Occupational Therapy- 2x weekly for independence with ADLs Physical Therapy- 2x weekly for strengthening, endurance, balance and functional independence Nursing- CV and pulmonary assessment, diabetic teaching and monitoring, daily weights, daily dressing shelter Health Aide- Speech Therapy- The patient is homebound and requires considerable and taxing effort to leave their residence secondary to impaired mobility and ADLs following left knee fusion requiring assist for mobility and ADLs To all home service providers, please contact the patient???s Primary Care Provider - Dr.Christopher Brunner - with all follow up regarding your services. Reviewed and Electronically Signed By: Brissa Rizzo MD Date: 04/04/22 04/04/2022 12:41:43 Opioid Pain Medicine Management Opioid Pain Medicine Management Opioids are powerful medicines that are used to treat moderate to severe pain. When used for short periods of time, they can help you: ??? Sleep better. ??? Do better in physical or occupational therapy. ??? Feel better in the first few days after an injury. ??? Recover from surgery. Opioids should be taken with the supervision of a trained health care provider. They should be taken for the shortest period of time possible. This is because opioids can be addictive, and the longeryou take opioids, the greater your risk of addiction (opioid use disorder). What are the risks? Using opioid pain medicines for longer than 3 days increases your risk of these side effects. Opioids can cause side effects, such as: ??? Constipation. ??? Nausea. ??? Vomiting. ??? Drowsiness. ??? Confusion. ??? Opioid use disorder. ??? Breathing difficulties (respiratory depression). Taking opioid pain medicine for a long period of time can affect your ability to do daily tasks. Italso puts you at risk for: ??? Motor vehicle accidents. ??? Depression. ??? Suicide. ??? Heart attack. ??? Overdose, which can sometimes lead to . What is a pain treatment plan? A pain treatment plan is an agreement between you and your health care provider. Pain is unique to each person, and treatments vary depending on your condition. To manage your pain successfully, you and your health care provider need to understand each other and work together. To help you do this: ??? Discuss the goals of your treatment, including how much pain you might expect to have and how you will manage the pain. ??? Review the risks and benefits of taking opioid medicines for your condition. ??? Remember that a good treatment plan uses more than one approach and minimizes the chance of side effects. ??? Be honest about the amount of medicines you take and about any drug or alcohol use. ??? Get pain medicine prescriptions from only one health care provider. Pain can be managed with many types of alternative treatments. Ask your health care provider to refer you to one or more specialists who can help you manage pain through: ??? Physical or occupational therapy. ??? Counseling (cognitive behavioral therapy). ??? Good nutrition. ??? Biofeedback. ??? Massage. ??? Meditation. ??? Non-opioid medicine. ??? Following a gentle exercise program. Tapering your use of opioids If you have been taking opioid medicine for more than a few weeks, you may need to slowly decrease (taper) how much you take until you stop completely. Tapering your use of opioids can decrease your chances of experiencing withdrawal symptoms, such as: ??? Pain and cramping in the abdomen. ??? Nausea. ??? Sweating. ??? Sleepiness. ??? Restlessness. ??? Uncontrollable shaking (tremors). ??? Cravings for the medicine. Do not attempt to taper your use of opioids on your own. Talk with your health care provider about how to do this. Your health care provider may prescribe a step-down schedule based on how much medicine you are taking and how long you have been taking it. Follow these instructions at home: Safety and storage ??? While you are taking opioid pain medicine: ??? Do not drive. ??? Do not use machinery or power tools. ??? Do not sign legal documents. ??? Do not drink alcohol. ??? Do not take sleeping pills. ??? Do not supervise children by yourself. ??? Do not participate in activities that require climbing or being in high places. ??? Do not enter a body of water, such as a [place], river, ocean, spa, or swimming pool. ??? Keep pain medicine in a locked cabinet or in a secure area where children cannot reach it. ??? Do not share your pain medicine with anyone. Getting rid of leftover pills ??? Do not save any leftover pills. Get rid of leftover pills safely by: ??? Taking the medicine to a prescription take-back program. This is usually offered by the county or law enforcement. ??? Bringing them to a pharmacy that has a drug disposal container. ??? Flushing them down the toilet. Check the label or package insert of your medicine to see whether this is safe to do. ??? Throwing them out in the trash. Check the label or package insert of your medicine to see whether this is safe to do. If it is safe to throw it out, remove the medicine from the original container, put it into a sealable bag or container, and mix it with used coffee grounds, food scraps, dirt, or cat litter before putting it in the trash. Activity ??? Return to your normal activities as told by your health care provider. Ask your health care provider what activities are safe for you. ??? Avoid activities that make your pain worse. ??? Do exercises as told by your health care provider. General instructions ??? You may need to take these actions to prevent or treat constipation: ??? Drink enough fluid to keep your urine pale yellow. ??? Take wyer-qyx-ztmvvzt or prescription medicines. ??? Eat foods that are high in fiber, such as beans, whole grains, and fresh fruits and vegetables. ??? Limit foods that are high in fat and processed sugars, such as fried or sweet foods. ??? Keep all follow-up visits as told by your health care provider. This is important. Where to find support If you have been taking opioids for a long time, you may benefit from receiving support for quitting from a local support group or counselor. Ask your health care provider for a referral to these resources in your area. Where to find more information ??? Centers for Disease Control and Prevention (CDC): www.cdc.gov ??? U.S. Food and Drug Administration (FDA): www.fda.gov Get help right away if: Seek medical care right away if you are taking opioids and you, or people close to you, notice any of the following: ??? Difficulty breathing. ??? Breathing that is slower or more shallow than normal. ??? A very slow heartbeat (pulse). ??? Severe confusion. ??? Unconsciousness. ??? Sleepiness. ??? Slurred speech. ??? Nausea and vomiting. ??? Cold, clammy skin. ??? Blue lips or fingernails. ??? Limpness. ??? Abnormally small pupils. If you think that you or someone else may have taken too much of an opioid medicine, get medical help right away. Call your local emergency services (911 in the [place] Do not drive yourself to the hospital. If you ever feel like you may hurt yourself or others, or have thoughts about taking your own life,get help right away. You can go to your nearest emergency department or call: ??? Your local emergency services (031 in the [place] ??? The hotline of the National Poison Control Center ( in the [place] ??? A suicide crisis helpline, such as the National Suicide Prevention Lifeline at . This is open 24 hours a day. Summary ??? Opioid medicines can help you manage moderate to severe pain for a short period of time. ??? A pain treatment plan is an agreement between you and your health care provider. Discuss the goals of your treatment, including how much pain you might expect to have and how you will manage the pain. ??? Pain can be managed with many types of alternative treatments. ??? If you think that you or someone else may have taken too much of an opioid, get medical help right away. This information is not intended to replace advice given to you by your health care provider. Make sure you discuss any questions you have with your health care provider. Document Revised: 06/16/2020 Document Reviewed: 09/10/2019 [employer] Patient Education ?? 2021 yeppt. 04/04/2022 12:41:43 Managing Pain Without Opioids Managing Pain Without Opioids Opioids are strong medicines used to treat moderate to severe pain. For some people, especially those who have long-term (chronic) pain, opioids may not be the best choice for pain management due to: ??? Side effects like nausea, constipation, and sleepiness. ??? The risk of addiction (opioid use disorder). The longer you take opioids, the greater your riskof addiction. Pain that lasts for more than 3 months is called chronic pain. Managing chronic pain usually requires more than one approach and is often provided by a team of health care providers working together (multidisciplinary approach). Pain management may be done at a pain management center or pain clinic. Types of pain management without opioids Managing pain without opioids can involve: ??? Non-opioid medicines. ??? Exercises to help relieve pain and improve strength and range of motion (physical therapy). ??? Therapy to help with everyday tasks and activities (occupational therapy). ??? Therapy to help you find ways to relieve pain by doing things you enjoy (recreational therapy). ??? Talk therapy (psychotherapy) and other mental health therapies. ??? Medical treatments such as injections or devices. ??? Making lifestyle changes. Pain management options Non-opioid medicines Non-opioid medicines for pain may include medicines taken by mouth (oral medicines), such as: ??? Kpsw-ixh-jikhrkl or prescription NSAIDs. These may be the first medicines used for pain. They work well for muscle and bone pain, and they reduce swelling. ??? Acetaminophen. This bhqz-bxl-vsuxpyj medicine may work well for milder pain but not swelling. ??? Antidepressants. These may be used to treat chronic pain. A certain type of antidepressant (tricyclics) is often used. These medicines are given in lower doses for pain than when used for depression. ??? Anticonvulsants. These are usually used to treat seizures but may also reduce nerve (neuropathic) pain. ??? Muscle relaxants. These relieve pain caused by sudden muscle tightening (spasms). You may also use a type of pain medicine that is applied to the skin as a patch, cream, or gel (topical analgesic), such as a numbing medicine. These may cause fewer side effects than oral medicines. Therapy Physical therapy involves doing exercises to gain strength and flexibility. A physical therapist may teach you exercises to move and stretch parts of your body that are weak, stiff, or painful. You can learn these exercises at physical therapy visits and practice them at home. Physical therapy may also involve: ??? Massage. ??? Heat wraps or applying heat or cold to affected areas. ??? Sending electrical signals through the skin to interrupt pain signals (transcutaneous electrical nerve stimulation, TENS). ??? Sending weak lasers through the skin to reduce pain and swelling (low-level laser therapy). ??? Using signals from your body to help you learn to regulate pain (biofeedback). Occupational therapy helps you learn ways to function at home and work with less pain. Recreational therapy may involve trying new activities or hobbies, such as drawing or a physical activity. Types of mental health therapy for pain include: ??? Cognitive behavioral therapy (CBT) to help you learn coping skills for dealing with pain. ??? Acceptance and commitment therapy (ACT) to change the way you think and react to pain. ??? Relaxation therapies, including muscle relaxation exercises and focusing your mind on the present moment to lower stress (mindfulness-based stress reduction). ??? Pain management counseling. This may be individual, family, or group counseling. Medical treatments Medical treatments for pain management include: ??? Nerve block injections. These may include a pain tyler and anti- inflammatory medicines. You may have injections: ??? Near the spine to relieve chronic back or neck pain. ??? Into joints to relieve back or joint pain. ??? Into nerve areas that supply a painful area to relieve body pain. ??? Into muscles (trigger point injections) to relieve some painful muscle conditions. ??? A medical registrar placed near your spine to help block pain signals and relieve nerve pain or chronic back pain (spinal cord stimulation device). ??? Acupuncture. Follow these instructions at home Medicines ??? Take rkhf-unp-znvvcqj and prescription medicines only as told by your health care provider. ??? If you are taking pain medicine, ask your health care providers about possible side effects to watch out for. ??? Do not drive or use heavy machinery while taking prescription pain medicine. Lifestyle ??? Do not use drugs or alcohol to reduce pain. Limit alcohol intake to no more than 1 drink a day for non women and 2 drinks a day for men. One drink equals 12 oz of beer, 5 oz of wine, or 1?? oz of hard liquor. ??? Do not use any products that contain nicotine or tobacco, such as cigarettes and e-cigarettes. These can delay healing. If you need help quitting, ask your health care provider. ??? Eat a healthy diet and maintain a healthy weight. Poor diet and excess weight may make pain worse. ??? Eat foods that are high in fiber. These include fresh fruits and vegetables, whole grains, and beans. ??? Limit foods that are high in fat and processed sugars, such as fried and sweet foods. ??? Exercise regularly. Exercise lowers stress and may help relieve pain. ??? Ask your health care provider what activities and exercises are safe for you. ??? If your health care provider approves, join an exercise class that combines movement and stressreduction. Examples include yoga and rigoberto chi. ??? Get enough sleep. Lack of sleep may make pain worse. ??? Lower stress as much as possible. Practice stress reduction techniques as told by your therapist. General instructions ??? Work with all your pain management providers to find the treatments that work best for you. Youare an important member of your pain management team. There are many things you can do to reduce pain on your own. ??? Consider joining an online or in-person support group for people who have chronic pain. ??? Keep all follow-up visits as told by your health care providers. This is important. Where to find more information You can find more information about managing pain without opioids from: ??? [place] [employer]: painmed.org ??? [place] [employer]: instituteforchronicpain.org ??? [place] [employer]: theacpa.org Contact a health care provider if: ??? You have side effects from pain medicine. ??? Your pain gets worse or does not get better with treatments or home care. ??? You are struggling with anxiety or depression. Summary ??? Many types of pain can be managed without opioids. Chronic pain may respond better to pain management without opioids. ??? Pain is best managed with a team of providers working together. ??? Pain management without opioids may include non-opioid medicines, medical treatments, physical therapy, mental health therapy, and lifestyle changes. ??? Tell your health care providers if your pain gets worse or is not being managed well enough. This information is not intended to replace advice given to you by your health care provider. Make sure you discuss any questions you have with your health care provider. Document Revised: 05/22/2021 Document Reviewed: 05/24/2021 [employer] Patient Education ?? 2021 yeppt. 04/04/2022 12:41:43 Hemoglobin Test Hemoglobin Test Why am I having this test? The hemoglobin test may be done to check for anemia, a condition in which you have a reduced numberof red blood cells. Hemoglobin is the portion of the red blood cell that carries oxygen and carbon dioxide. Various types of anemia can cause your hemoglobin level to be low. It may also be low if you: ??? Have certain diseases, such as cancer. ??? Have nutritional problems. ??? Have had severe bleeding. What is being tested? This test measures the total amount of hemoglobin in your blood. What kind of sample is taken? A blood sample is required for this test. It is usually collected by inserting a needle into a blood vessel. Tell a health care provider about: ??? All medicines you are taking, including vitamins, herbs, eye drops, creams, and lbqn-ime-xupbtym medicines. ??? Whether you are or may be . How are the results reported? Your test results will be reported as values. Your health care provider will compare your results to normal ranges that were established after testing a large group of people (reference ranges). Reference ranges may vary among labs and hospitals. For this test, common reference ranges are: Adults ??? Male: 14???18 g/dL or 8.7???11.2 mmol/L (SI units). ??? Female: 12???16 g/dL or 7.4???9.9 mmol/L (SI units). ??? female: greater than 11 g/dL or 6.8 mmol/L (SI units). ??? Elderly: ??? Male: 12.4???14.9 g/dL or 7.7???9.2 mmol/L (SI units). ??? Female: 11.7???13.8 g/dL or 7.2???8.5 mmol/L (SI units). Children ??? : 14???24 g/dL. ??? 0???2 weeks old: 12???20 g/dL. ??? 2???6 months old: 10???17 g/dL. ??? 6 months to 1 year old: 9.5???14 g/dL. ??? 1???6 years old: 9.5???14 g/dL. ??? 6???18 years old: 10???15.5 g/dL. What do the results mean? Results within the reference range are considered normal. A hemoglobin level that is too high may indicate any of the following: ??? Having too many red blood cells (erythrocytosis). ??? A disorder of the bone marrow (polycythemia vera). ??? Severe dehydration. A hemoglobin level that is too low may indicate any of the following: ??? Low red blood cell count (anemia). ??? A disorder that affects the formation of hemoglobin (hemoglobinopathy). ??? Chronic liver disease (cirrhosis). ??? A condition where red blood cells are destroyed more often than usual (hemolytic anemia). ??? Active bleeding (hemorrhage). ??? Bone marrow failure. ??? Kidney disease. ??? Various types of cancer. ??? Enlarged spleen. Certain conditions may also cause your hemoglobin level to be slightly lower or higher. ??? It may be slightly low in conditions such as: ??? Normal . ??? Dietary deficiency. ??? Some autoimmune diseases. ??? Replacement heart valves (prosthetic valves). ??? It may be slightly high in conditions such as: ??? Congenital heart disease. ??? Smoking or lung disease such as chronic obstructive pulmonary disease (COPD). ??? Living at high altitudes. Talk with your health care provider about what your results mean. Questions to ask your health care provider Ask your health care provider, or the department that is doing the test: ??? When will my results be ready? How will I get my results? What are my treatment options? What other tests do I need? What are my next steps? Summary ??? The hemoglobin test may be done to check for anemia, a condition in which you have a reduced number of red blood cells. ??? Hemoglobin levels that are lower than normal can be seen in many conditions, including certain cancers, dietary deficiencies, and severe bleeding. ??? Hemoglobin levels that are higher than normal can be seen in COPD, congenital heart disease, polycythemia vera, erythrocytosis, and severe dehydration. ??? Talk with your health care provider about what your results may mean. This information is not intended to replace advice given to you by your health care provider. Make sure you discuss any questions you have with your health care provider. Document Revised: 12/21/2020 Document Reviewed: 12/21/2020 [employer] Patient Education ?? 2021 yeppt. 04/04/2022 12:41:43 Anemia Anemia Anemia is a condition in which there is not enough red blood cells or hemoglobin in the blood. Hemoglobin is a substance in red blood cells that carries oxygen. When you do not have enough red blood cells or hemoglobin (are anemic), your body cannot get enoughoxygen and your organs may not work properly. As a result, you may feel very tired or have other problems. What are the causes? Common causes of anemia include: ??? Excessive bleeding. Anemia can be caused by excessive bleeding inside or outside the body, including bleeding from the intestines or from heavy menstrual periods in females. ??? Poor nutrition. ??? Long-lasting (chronic) kidney, thyroid, and liver disease. ??? Bone marrow disorders, spleen problems, and blood disorders. ??? Cancer and treatments for cancer. ??? HIV (human immunodeficiency virus) and AIDS (acquired immunodeficiency syndrome). ??? Infections, medicines, and autoimmune disorders that destroy red blood cells. What are the signs or symptoms? Symptoms of this condition include: ??? Minor weakness. ??? Dizziness. ??? Headache, or difficulties concentrating and sleeping. ??? Heartbeats that feel irregular or faster than normal (palpitations). ??? Shortness of breath, especially with exercise. ??? Pale skin, lips, and nails, or cold hands and feet. ??? Indigestion and nausea. Symptoms may occur suddenly or develop slowly. If your anemia is mild, you may not have symptoms. How is this diagnosed? This condition is diagnosed based on blood tests, your medical history, and a physical exam. In some cases, a test may be needed in which cells are removed from the soft tissue inside of a bone and looked at under a microscope (bone marrow biopsy). Your health care provider may also check your stool (feces) for blood and may do additional testing to look for the cause of your bleeding. Other tests may include: ??? Imaging tests, such as a CT scan or MRI. ??? A procedure to see inside your esophagus and stomach (endoscopy). ??? A procedure to see inside your colon and rectum (colonoscopy). How is this treated? Treatment for this condition depends on the cause. If you continue to lose a lot of blood, you may need to be treated at a hospital. Treatment may include: ??? Taking supplements of iron, vitamin B12, or folic acid. ??? Taking a hormone medicine (erythropoietin) that can help to stimulate red blood cell growth. ??? Having a blood transfusion. This may be needed if you lose a lot of blood. ??? Making changes to your diet. ??? Having surgery to remove your spleen. Follow these instructions at home: ??? Take vdtp-tnm-ujvzibh and prescription medicines only as told by your health care provider. ??? Take supplements only as told by your health care provider. ??? Follow any diet instructions that you were given by your health care provider. ??? Keep all follow-up visits as told by your health care provider. This is important. Contact a health care provider if: ??? You develop new bleeding anywhere in the body. Get help right away if: ??? You are very weak. ??? You are short of breath. ??? You have pain in your abdomen or chest. ??? You are dizzy or feel faint. ??? You have trouble concentrating. ??? You have bloody stools, black stools, or tarry stools. ??? You vomit repeatedly or you vomit up blood. These symptoms may represent a serious problem that is an emergency. Do not wait to see if the symptoms will go away. Get medical help right away. Call your local emergency services (911 in the [place] Do not drive yourself to the hospital. Summary ??? Anemia is a condition in which you do not have enough red blood cells or enough of a substance in your red blood cells that carries oxygen (hemoglobin). ??? Symptoms may occur suddenly or develop slowly. ??? If your anemia is mild, you may not have symptoms. ??? This condition is diagnosed with blood tests, a medical history, and a physical exam. Other tests may be needed. ??? Treatment for this condition depends on the cause of the anemia. This information is not intended to replace advice given to you by your health care provider. Make sure you discuss any questions you have with your health care provider. Document Revised: 07/18/2020 Document Reviewed: 07/18/2020 [employer] Patient Education ?? 2021 yeppt. 04/04/2022 12:41:43 Chronic Pain, Adult Chronic Pain, Adult Chronic pain is a type of pain that lasts or keeps coming back for at least 3???6 months. You may have headaches, pain in the abdomen, or pain in other areas of the body. Chronic pain may be related to an illness, such as fibromyalgia or complex regional pain syndrome. Chronic pain may also be related to an injury or a health condition. Sometimes, the cause of chronic pain is not known. Chronic pain can make it hard for you to do daily activities. If not treated, chronic pain can leadto anxiety and depression. Treatment depends on the cause and severity of your pain. You may need to work with a pain specialist to come up with a treatment plan. The plan may include medicine, counseling, and physical therapy. Many people benefit from a combination of two or more types of treatment to control their pain. Follow these instructions at home: Medicines ??? Take gocz-sel-nvyrxfw and prescription medicines only as told by your health care provider. ??? Ask your health care provider if the medicine prescribed to you: ??? Requires you to avoid driving or using machinery. ??? Can cause constipation. You may need to take these actions to prevent or treat constipation: ??? Drink enough fluid to keep your urine pale yellow. ??? Take raqk-zsc-tubkxbv or prescription medicines. ??? Eat foods that are high in fiber, such as beans, whole grains, and fresh fruits and vegetables. ??? Limit foods that are high in fat and processed sugars, such as fried or sweet foods. Treatment plan Follow your treatment plan as told by your health care provider. This may include: ??? Gentle, regular exercise. ??? Eating a healthy diet that includes foods such as vegetables, fruits, fish, and lean meats. ??? Cognitive or behavioral therapy that changes the way you think or act in response to the pain. This may help improve how you feel. ??? Working with a physical therapist. ??? Meditation, yoga, acupuncture, or massage therapy. ??? Aroma, color, light, or sound therapy. ??? Local electrical stimulation. The electrical pulses help to relieve pain by temporarily stopping the nerve impulses that cause you to feel pain. ??? Injections. These deliver numbing or pain-relieving medicines into the spine or the area of pain. Lifestyle ??? Ask your health care provider whether you should keep a pain diary. Your health care provider will tell you what information to write in the diary. This may include when you have pain, what the pain feels like, and how medicines and other behaviors or treatments help to reduce the pain. ??? Consider talking with a mental health care provider about how to manage chronic pain. ??? Consider joining a chronic pain support group. ??? Try to control or lower your stress levels. Talk with your health care provider about ways to do this. General instructions ??? Learn as much as you can about how to manage your chronic pain. Ask your health care provider if an intensive pain rehabilitation program or a chronic pain specialist would be helpful. ??? Check your pain level as told by your health care provider. Ask your health care provider if you should use a pain scale. ??? It is up to you to get the results of any tests that were done. Ask your health care provider, or the department that is doing the tests, when your results will be ready. ??? Keep all follow-up visits as told by your health care provider. This is important. Contact a health care provider if: ??? Your pain gets worse, or you have new pain. ??? You have trouble sleeping. ??? You have trouble doing your normal activities. ??? Your pain is not controlled with treatment. ??? You have side effects from pain medicine. ??? You feel weak. ??? You notice any other changes that show that your condition is getting worse. Get help right away if: ??? You lose feeling or have numbness in your body. ??? You lose control of bowel or bladder function. ??? Your pain suddenly gets much worse. ??? You develop shaking or chills. ??? You develop confusion. ??? You develop chest pain. ??? You have trouble breathing or shortness of breath. ??? You pass out. ??? You have thoughts about hurting yourself or others. If you ever feel like you may hurt yourself or others, or have thoughts about taking your own life,get help right away. Go to your nearest emergency department or: ??? Call your local emergency services (911 in the [place] ??? Call a suicide crisis helpline, such as the National Suicide Prevention Lifeline at . This is open 24 hours a day in the [place] ??? Text the Crisis Text Line at 452516 (in the [place] Summary ??? Chronic pain is a type of pain that lasts or keeps coming back for at least 3???6 months. ??? Chronic pain may be related to an illness, injury, or other health condition. Sometimes, the cause of chronic pain is not known. ??? Treatment depends on the cause and severity of your pain. ??? Many people benefit from a combination of two or more types of treatment to control their pain. ??? Follow your treatment plan as told by your health care provider. This information is not intended to replace advice given to you by your health care provider. Make sure you discuss any questions you have with your health care provider. Document Revised: 04/27/2020 Document Reviewed: 04/27/2020 [employer] Patient Education ?? 2021 yeppt. 04/04/2022 12:41:43 Hospitalist Services Upon Discharge (JUANCHO HART) (Custom) Services Upon Discharge Patient is being discharged home with these services in place: OUTPATIENT SERVICES: Service Provider: Michael Ull[facility] Contact Holly Ellison [phone] anticipated start of care 04/04/2022 Contact Service(s) to be Provided: Frequency: Additional Comments: HOME SERVICES: Home Services Discharge - Arrangements and orders for follow-up care Service Provider: Contact Phone Number: Service(s) to be Provided: Frequency: Additional Comments: Date of the face to face encounter: This visit was related to for which the patient needs skilled home health services.?? My clinical findings support the need for skilled: Occupational Therapy- 2x weekly for independence with ADLs Physical Therapy- 2x weekly for strengthening, endurance, balance and functional independence, PT/INR monitoring Nursing- CV and pulmonary assessment, diabetic teaching and monitoring, daily weights, daily dressing shelter Health Aide- 2x weekly for impaired weakness and immobility, ADL independence Speech Therapy-?? 2x weekly for The patient is homebound and requires considerable and taxing effort to leave their residence secondary to To all home service providers, please contact the patient???s Primary Care Provider - - with all follow up regarding your services. Reviewed and Electronically Signed By: Date: 04/04/2022 12:38:54 [facility] Opioid Education Sheet (ИВАНE1) Opioid Pain Medication Your provider is prescribing an opioid drug to treat pain Anyone can get addicted to these powerful drugs. Ask your provider: Do I really need this? Talk with your provider about risks, side effects and other ways to treat your pain. If you decide to take this drug, here???s what you need to know: Using this drug may cause addiction Opioid addiction is a lifelong problem. It can start with just one prescription. Children and youth have a higher risk of future addiction if they take opioids when they are young. Take only what you need You do not have to use it all. An overdose can happen to anyone Don???t take more medication than your provider prescribed. Taking too much or taking it with alcohol or other drugs can cause an overdose. You might stop breathing, go into a coma, have brain damage, or . Tell your provider if you use alcohol or other medications or drugs. Tell your provider if you have used alcohol or drugs in the past. If you think you are at high risk of an overdose, talk to your provider about your options. Do not drive or use heavy machinery Opioids can slow your reaction time. They can also cause drowsiness and confuse your judgment. Store prescriptions properly Keep prescription drugs locked up. Make sure kids, family, and guests can???t get to them. Know where your medication is at all times. Keep it in the original bottle. Make sure the label is clear. Never share or give away your prescription drug, even to family or friends. Dispose of leftover medicine safely Don???t flush prescription drugs down the toilet or wash them down the sink. Flushing drugs or throwing them away can harm drinking water, wildlife, pets and people. In [place], you can drop off your unused medications at a permanent drug disposal site. [facility] Go to this website for more information: [facility].gov/adap/RxOTCabuse.aspx Prescription Drug Take-Back Locations Before you drop off your or unused prescription drugs, please remember to: Keep prescriptions in their original containers. Adria out your name or other personal information if desired. Please note that sharps and needles are not accepted at any disposal location. [place] [employer] - [address] [place] [address] [place] [employer] - [address] [place] [address] [place] [employer] [facility] - [address] [place] [address] [place] [employer] - [address] [place] [address] [place] [employer] - [address] [place] [address], [place] [address] [place] [employer] - [address] [facility] [place], [place] [address] [place] [employer] - [address] [place] [address] For information on how to safely dispose of sharps and needles in [place], please visit [facility]'s page: [email or web address].[email or web address].gov/response/qkcg-fnfvox-iggzwkxm-[email or web address] 04/04/2022 12:38:52 SDS Opioid cute pain consent form (JYOTI) Informed Consent and Agreement for Acute Opioid Therapy of Pain Reason for Review and Signing of this Document Pain relief is an important goal for your care. Opioid medications may be a helpful part of chronicpain treatment for some people; however, misuse of opioid medications may result in serious harm topatients prescribed them and, when the medications are diverted, to the public at large. As opioid use for pain management has increased in recent years, injury, addiction, and due to misuse ofopioids have also increased. Patients and health care provides both have responsibilities for the safe use of opioid medicationswhen they are prescribed for pain. This agreement provides important information on the potential benefits and risks of opioid medications and serves to document that both you and your provider agreeon a care plan so that opioid medications are used in a way that is safe and effective in treating your pain. This agreement is reviewed and signed by all patients in our practice who receive opioidsfor acute pain. Expected Benefits of Goals of Opioid Treatment Common goals in using opioids to treat pain include: ??? Improved Pain ??? Improved ability to engage in work, social, recreational and/or physical activities ??? Improved quality of life Your provider may discuss more specific goals for pain treatment with you as well. GOALS: Potential Risks of Side Effects of Opioid Treatment Physical side effects: May include mood changes, drowsiness, nausea, constipation, urination difficulties, depressed breathing, itching, bone thinning and sexual difficulties, such as lowering of male hormone in men and cessation of menstrual periods in women. Physical dependence: Sudden stopping of an opioid may lead to withdrawal symptoms including abdominal cramping, pain, diarrhea, sweating, anxiety, irritability, and aching. Tolerance: A dose of an opioid may become less effective overtime even though there is no change inyour physical condition. If this happens repeatedly, your medication may need to be changed or discontinued. Addiction: Is more common in people with personal or family history of addiction, but can occur in anyone. It is suggested by drug craving, loss of control and poor outcomes of use. Hyperalgesia: Increased sensitivity to and/or increasing experience of pain caused by the use of opioids may require change or discontinuation of medication. Overdose: Taking more than the prescribed amount of medication or using with alcohol or other drugsincluding benzodiazepines and barbiturates can cause you to stop breathing resulting in coma, braindamage, or even . Sleep apnea: (periods of not breathing while asleep) may be caused or worsened by opioids. Risk to unborn child: Risks to unborn children may include: physical dependence at . Possible alterations in pain perception, possible increased risk for development of addiction, among others. Tell your provider if you are or intend to become . Victimization: There is a risk that you or your household may be subject to theft, deceit, assault or abuse by persons seeking to obtain your medications for purposes of misuse. Life-threatening irregular heartbeat: Can occur with methadone, EKG may be needed. Responsibilities in Opioid Therapy of Chronic Pain Your provider???s responsibilities include: Listening carefully to your concerns, treating you withcare and with due respect, and making clinical decisions based on what he/she believes is in your best interest. Your responsibilities: In order to maximize the potential benefits of opioid mediations and to minimize the potential risks, it is important that you accept the following responsibilities. In signingthis agreement, you agree to: Use your opioid medications as prescribed for the purpose of relieving pain. Keep your medications locked up to avoid intentional or unintentional use or diversion by others. Discard all unused medications. Be honest with your providers about your medication or other drug use. Use no illegal drugs and not abuse alcohol while being prescribed opioids. Not share, sell, trade or in any way provide your medications to others. Receive opioid medications from this practice only. If opioids are prescribed unexpectedly by another office (for example due to an accident or dental procedure), Inform this office within 24 hours. Bring your opioid mediations to this or follow up practice when requested. Participate in other pain treatments agreed to with your provider and keep all appointments scheduled for your care. Permit this practice to communicate with other care providers and/or your significant others as needed to assure opioids are being uses appropriately and are beneficial to your health and well-being. The Caregiver prescribing your opioid and/or benzodiazepine medication thinks your risk potential for side effect, adverse outcomes or addictions is: . If you develop complications of opioid use, such as addiction, we, or the practice you are referredto, will assist you in finding treatment. Please be aware, however, that our practice cooperates full with law enforcement, the [place] Drug Enforcement Agency and other agencies in the investigation of opioid- related crimes including sharing, selling, trading, or other potential harmful use of these powerful medications. Consent to treatment and agreement to responsibilities outlines above I have reviewed this document and been given the opportunity to have any questions answered. I understand the possible benefits and risks of opioid medications and I accept the responsibilities described above. Patient Name Date Healthcare Staff Date Informed Consent February 2015 Follow Up Care 03/26/2022 11:28:14 With:[facility] Address:Unknown When: Unknown Comments:Home Health PT/OT/Nursing With:Renny Brunner Address:Unknown When:04/12/2022 10:00:00 Comments:[facility] - follow-up Appt with your PCP With:[facility] Address:Unknown When:04/22/2022 12:15:00 Comments:[facility] Radiology 3T With:Aydin Baumann Address: [address] [place] [address] When:04/22/2022 Comments:[facility] Ortho 3C @ 12:50pm Care Team Personnel Name: Renny Brunner
[2023-08-26 11:34] LABS: Troponin I 120 ng/L (<or=60)
[2023-08-26] MEDS: cefTRIAXone 2 GM/50 ML BAG IVPB (13:35)
[2023-08-26] MEDS: Insulin Aspart 300 UNITS/3 ML PEN SC ×2 (13:36→17:02)
[2023-08-26] MEDS: Acetaminophen 325 MG TAB 650 MG PO (13:44)
--- NOTE | 2023-08-26 14:12 | HPE_ITS ---
Date of service: 08/26/23 Time of Service: 14:12 Assessment and Plan Assessment and plan (1) Severe sepsis: Status: Acute Assessment and plan: Suspect urinary source, cultures are pending. She is symptomatic with dysuria frequency and urgency. Will continue IV fluids overnight. Trend lactate, which is trending downward. Hemodynamically she has been stable will continue to closely monitor. Should she become hypotensive consider adding stress dose steroids in addition to fluid. (2) Acute UTI: Status: Acute Assessment and plan: Cultures are pending no previous culture report to help guide treatment. She does have penicillin allergy but appropriate to be treated with ceftriaxone to be monitored closely while hospitalized. Ceftriaxone 2 g daily day 1 of 7 (3) Renal insufficiency: Status: Chronic Assessment and plan: Creatinine at baseline of 1.2-1.4. He is receiving hydration IV. Will avoid nephrotoxic drugs and renal dose medications as needed (4) Chronic pain: Status: Chronic Assessment and plan: Chronic back pain for which she is followed by spine at [facility]. Was scheduled for surgery for tomorrow morning. We have notified spine clinic that she is here as an inpatient. She will need to reschedule once medically stable Will continue home oxycodone which is renally dosed to 5 every 6 hours as needed. Will add acetaminophen every 4 hours Toradol every 6 hours and lidocaine patch as needed (5) Psoriatic arthritis: Status: Acute Assessment and plan: Stable, continue home medication Consider stress dose steroids for symptoms of adrenal insufficiency (6) Diabetes mellitus: Status: Chronic Assessment and plan: Diabetic diet with sliding scale coverage before meals and at bedtime, anticipate hyperglycemia in setting of acute infection. Last hemoglobin A1c we have on record was 6.1 in April 2022. 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 use: with termite exterminator helper use Diabetes mellitus type: type 2 Qualified Code(s): E11.69 - Type 2 diabetes mellitus with other specified complication; Z79.4 - care home (current) use of insulin History of Present Illness History of Present Illness Chief Complaint: nausea, vomiting, UTI symptoms N arrative: This is a 68-year-old female patient past medical history significant for chronic back pain awaiting spine surgery scheduled for tomorrow number next group B strep bacteremia, chronic pain on oxycodon, diabetes mellitus type 2 psoriatic arthritis on immunosuppressive agents who presented to the emergency department with several day history of nausea vomiting malaise and reported dysuria frequency and urgency. Her workup in the emergency department does show severe sepsis with urinary source. She was given aztreonam in the emergency department while awaiting culture report. Hemodynamically she has been stable. Review of Systems All systems reviewed & are unremarkable except as noted in HPI and below PFSH All Active Problems (Updated 08/26/23 @ 14:17 by Lauryn Herrera NP) Diabetes mellitus (Chronic) Psoriatic arthritis (Acute) Severe sepsis (Acute) Acute UTI (Acute) Nausea vomiting and diarrhea (Acute) Renal insufficiency (Chronic) Polypharmacy (Acute) Bacteremia (Acute) Chronic pain (Chronic) Pneumonia (Acute) COVID (Acute) Cellulitis and abscess of foot (Acute) Contusion of right foot (Acute) Sepsis (Acute) Bone infection of left foot (Acute) Status post total left knee replacement (Acute) Pain (Acute) Lower extremity pain (Acute) Medical History Psoriatic arthritis Edema, peripheral Bacteremia due to group B Streptococcus Diabetes mellitus Surgical History 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 Meds Allergies and Home Medications Allergies Allergy/AdvReac Type Severity Reaction Status Date / Time capsaicin Allergy Severe Anaphylaxsi Unverified 08/26/23 07:58 s clarithromycin [From Biaxin] Allergy Intermediate Skin Rash Unverified 08/26/23 07:58 Penicillins Allergy Intermediate Skin Rash Unverified 08/26/23 07:58 Sulfa (Sulfonamide Allergy Intermediate Skin Rash Unverified 08/26/23 07:58 Antibiotics) nickel Allergy Mild Itching Unverified 08/26/23 07:58 Home Medications Medication Instructions Recorded Confirmed Type albuterol sulfate 2.5 mg/3 mL 1 unit inhalation QID PRN 01/11/14 08/26/23 History (0.083 %) solution for nebulization calcium carbonate 600 mg-vitamin 1 tab PO BID 01/11/14 08/26/23 History D3 10 mcg (400 unit) tablet (Calcium 600 + D(3)) esomeprazole magnesium 40 mg 40 mg PO DAILY 01/11/14 08/26/23 History capsule,delayed release (Nexium) folic acid 1 mg tablet 1 mg PO DAILY 01/11/14 08/26/23 History insulin glargine 100 unit/mL 24 units subcut DAILY AM 01/11/14 08/26/23 History subcutaneous solution (Lantus U-100 Insulin) leflunomide 20 mg tablet (Arava) 20 mg PO DAILY 01/11/14 08/26/23 History methylprednisolone 4 mg tablet 4 mg PO DAILY 01/11/14 08/26/23 History zolpidem 10 mg tablet 10 mg PO HS 01/11/14 08/26/23 History aspirin 81 mg chewable tablet 81 mg PO DAILY 04/09/19 08/26/23 History insulin lispro 100 unit/mL See Rx Instructions .Route .COMPLEX 04/09/19 08/26/23 History subcutaneous pen (Humalog KwikPen (U-100) Insulin) multivitamin with minerals-iron 1 mg PO DAILY 04/09/19 08/26/23 History fumarate 9 mg iron/15 mL oral liquid (Multi Vitamin) ascorbic acid (vitamin C) 500 mg See Rx Instructions .Route .COMPLEX 05/10/22 08/26/23 History tablet metoclopramide HCl 5 mg tablet 5 mg PO TID 05/10/22 08/26/23 History ondansetron HCl 4 mg tablet 4 mg PO Q8H PRN PRN 05/10/22 08/26/23 History oxycodone 5 mg tablet 5 - 10 mg PO Q6H PRN PRN 05/10/22 08/26/23 History albuterol sulfate 90 mcg/actuation 2 puff inhalation Q4H PRN PRN #8.5 05/13/22 08/26/23 Rx aerosol inhaler (Ventolin HFA) grams amlodipine 5 mg tablet 5 mg PO DAILY 08/26/23 08/26/23 History atorvastatin 20 mg tablet 20 mg PO QPM 08/26/23 08/26/23 History metoprolol succinate 100 mg 100 mg PO DAILY 08/26/23 08/26/23 History tablet,extended release 24 hr Exam Narrative Exam Narrative: Chronically ill-appearing obese woman older than stated age no acute distress nontoxic-appearing head is atraumatic eyes normal appearance nonicteric noninjected. EOMs intact. Oral mucosa is moist neck is supple no JVD cardiovascular regular rate and rhythm respirations are even and unlabored with diminished breath sounds bilaterally abdomen is obese soft nontender with positive bowel sounds she moves all extremities skin with no rashes or lesions Results Labs 08/26/23 08:15 08/26/23 08:15 Labs: Laboratory Results - last 24 hr 08/26/23 08/26/23 08/26/23 08:02 08:15 08:15 WBC 8.67 RBC 3.68 L Hgb 11.3 Hct 34.6 L MCV 94 MCH 30.7 MCHC 32.7 RDW 14.0 Plt Count 217 MPV 10.1 Immature Gran % 0.5 Neutrophils % 85.1 Lymphocytes % 8.7 Monocytes % 3.9 Eosinophils % 0.8 Basophils % 1.0 Nucleated RBC % 0.0 Absolute Neutrophils 7.38 H Absolute Lymphocytes 0.75 L Absolute Monocytes 0.34 Absolute Eosinophils 0.07 Absolute Basophils 0.09 VBG Lactate 3.0 H* Sodium 137 Potassium 3.7 Chloride 99 Carbon Dioxide 26.0 Anion Gap 12.0 H BUN 27 H Creatinine 1.4 H Est GFR (CKD-EPI 2020) 41.24 Glucose 272 H Calcium 9.5 Total Bilirubin 1.4 H AST 60 H ALT 65 H Alkaline Phosphatase 122 H Troponin I 58 Total Protein 7.1 Albumin 3.3 L Lipase 18 Cancelled Procalcitonin 6.5 Urine Color Urine Clarity Urine pH Ur Specific [place] Urine Protein Urine Ketones Urine Blood Urine Nitrite Urine Bilirubin Urine Urobilinogen Ur Leukocyte Esterase Urine RBC Urine WBC Ur Epithelial Cells Urine Crystals Urine Bacteria Urine Casts Urine Mucus Ur Culture Indicated? Urine Glucose COVID-19 Source Nasopharynx SARS-CoV-2 (PCR) Negative Influenza Type A (PCR) Negative Influenza Type B (PCR) Negative RSV (PCR) Negative 01/02/24 01/02/24 09:57 11:09 WBC RBC Hgb Hct MCV MCH MCHC RDW Plt Count MPV Immature Gran % Neutrophils % Lymphocytes % Monocytes % Eosinophils % Basophils % Nucleated RBC % Absolute Neutrophils Absolute Lymphocytes Absolute Monocytes Absolute Eosinophils Absolute Basophils VBG Lactate 2.1 H Sodium Potassium Chloride Carbon Dioxide Anion Gap BUN Creatinine Est GFR (CKD-EPI 2020) Glucose Calcium Total Bilirubin AST ALT Alkaline Phosphatase Troponin I 120 H* Total Protein Albumin Lipase Procalcitonin Urine Color Yellow Urine Clarity Cloudy Urine pH 5.0 Ur Specific [place] 1.020 Urine Protein 100 H Urine Ketones 40 H Urine Blood Moderate H Urine Nitrite Positive H Urine Bilirubin Negative Urine Urobilinogen 0.2 Ur Leukocyte Esterase Small H Urine RBC 5-10 H Urine WBC 20-50 H Ur Epithelial Cells Few Urine Crystals Negative Urine Bacteria Moderate Urine Casts 0-2 Hyaline Urine Mucus Trace Ur Culture Indicated? C&S Done As Ordered Urine Glucose Negative COVID-19 Source SARS-CoV-2 (PCR) Influenza Type A (PCR) Influenza Type B (PCR) RSV (PCR) Last Vital Signs Temp 38.1 C H 08/26/23 13:44 Pulse 106 H 08/26/23 12:28 Resp 17 08/26/23 12:28 BP 128/71 08/26/23 12:28 Pulse Ox 98 08/26/23 12:28 Time Spent Time spent with Patient: 55-74 minutes Time was spent: preparing to see the patient(eg.review tests), obtaining and/or reviewing separately otained hiistory, ordering medications,tests, procedures, indepentently interpreting results and counseling the patient
[2023-08-26 14:32] LABS: Lactate 2.3 mmol/L (0.6-1.4)
[2023-08-26] MEDS: Lactated Ringers 1,000 ML 125 ML IV (14:33)
[2023-08-26] MEDS: Ketorolac 15 MG/ML VIAL IVP (14:40)
[2023-08-26 14:53] LABS: Troponin I 179 ng/L (<or=60)
--- NOTE | 2023-08-26 15:15 | RT.EKG_ITS ---
APPROVED REPORT Exam: Resting ECG Reason for Exam: elevated troponin Patient Location: I HR:91 bpm ECG Measurements Heart Rate 91 AXIS UT 150 P 12 QRSd 140 QRS -60 QT 423 T 81 QTc 521 Conclusion Sinus tachycardia...rate> 99 Multiform ventricular premature complexes...short R-R, variable morphology RBBB and LAFB...QRSd >120mS, axis(-40,240) Probable left ventricular hypertrophy...(RaVL+SV3)xQRSd >300 I have reviewed and interpreted ECG and agree with software generated interpretation.
[2023-08-26] MEDS: Lactated Ringers 1,000 ML 1000 ML IV (15:29)
[2023-08-26] MEDS: Hydrocortisone SOD SUC. 100 MG VIAL IVP (15:45)
[2023-08-26] MEDS: oxyCODONE 5 MG TAB PO (15:52)
[2023-08-26 18:17] LABS: Hemoglobin A1C 6.6 % (<5.7)
[2023-08-26 18:29] LABS: Lab Add On Test DONE
[2023-08-26 19:11] LABS: Troponin I 294 ng/L (<or=60)
[2023-08-26] MEDS: Calcium 600mg/Vit D 200U TAB 1 TAB PO (19:25)
[2023-08-26] MEDS: Atorvastatin 20 MG TAB PO (19:25)
[2023-08-26] MEDS: Hydrocortisone SOD SUC. 100 MG VIAL 50 MG IVP (21:10)
[2023-08-26] MEDS: Lactated Ringers 1,000 ML 150 ML IV (21:10)
[2023-08-26] MEDS: Zolpidem 10 MG TAB PO (21:10)
[2023-08-26] MEDS: Enoxaparin 100 MG/ML SYR SC (22:10)
[2023-08-27] MEDS: oxyCODONE 5 MG TAB PO ×4 (02:32→21:47)
[2023-08-27] MEDS: Acetaminophen 325 MG TAB 650 MG PO ×2 (02:34→13:44)
[2023-08-27 03:12] VITALS: BP 126/74; PULSE 77; RESP 18; TEMP 36.7; O2SAT 94
[2023-08-27] MEDS: Lactated Ringers 1,000 ML 150 ML IV (03:26)
[2023-08-27] MEDS: Hydrocortisone SOD SUC. 100 MG VIAL 50 MG IVP ×4 (03:27→21:46)
[2023-08-27 06:32] LABS: Abs Immature Grans 0.03 10^3/uL (0.0-0.06); Absolute Basophil Count 0.02 10^3/uL (0.0-0.2); Absolute Lymphocyte Count 0.51 10^3/uL (1.2-3.4); Absolute Neutrophil Count 6.89 10^3/uL (1.2-6.7); Basophils % 0.3; HCT 28.7 % (36.0-46.0); HGB 9.4 g/dL (11.2-15.7); Immature Grans % 0.4; Lymphocytes % 6.6; MCH 30.3 pg (27.0-33.0); MCHC 32.8 % (32.0-36.0); MCV 93 fL (80-95); MPV 10.5 fL (8.0-11.0); Monocytes % 3.9; Neutrophils % 88.8; Platelet Count 202 10^3/uL (130-400); RDW 13.7 % (11.7-14.6); RDW-SD 46.6 fL; WBC 7.75 10^3/uL (4.4-10.8)
[2023-08-27 06:50] LABS: BUN 25 mg/dL (7-18); CREATININE 1.2 mg/dL (0.55-1.02); Calcium 8.6 mg/dL (8.5-10.1); Chloride 102 mmol/L (98-107); Estimated GFR 49.61 (mL/min/1.73m2); Glucose 181 mg/dL (74-106); Potassium 3.7 mmol/L (3.5-5.1); Sodium 138 mmol/L (136-145)
[2023-08-27 06:53] LABS: Troponin I 284 ng/L (<or=60)
[2023-08-27 07:26] VITALS: BP 120/69; PULSE 73; RESP 17; TEMP 37; O2SAT 95
[2023-08-27] MEDS: Insulin Aspart 300 UNITS/3 ML PEN SC ×3 (07:51→16:43)
[2023-08-27] MEDS: Calcium 600mg/Vit D 200U TAB 1 TAB PO ×2 (07:52→21:45)
[2023-08-27] MEDS: amLODIPine 5 MG TAB PO (07:52)
[2023-08-27] MEDS: Aspirin 81 MG CHEW PO (07:52)
[2023-08-27] MEDS: methylPREDNISolone 4 MG TAB PO (07:53)
[2023-08-27] MEDS: Ascorbic Acid 500 MG TAB PO (07:53)
[2023-08-27] MEDS: Esomeprazole 40 MG CAPCR PO (07:53)
[2023-08-27] MEDS: Folic Acid 1 MG TAB PO (07:54)
[2023-08-27] MEDS: Normal Saline Flush 10 ML SYR IVP ×2 (10:38→20:16)
[2023-08-27] MEDS: Enoxaparin 100 MG/ML SYR SC ×2 (10:47→22:52)
--- NOTE | 2023-08-27 11:49 | PHA.REVIEW2 ---
Pharmacy Admission Review Admission Clinical Review Admission Pharmacy Review: Psoriatic arthritis (Acute) Severe sepsis (Acute) Acute UTI (Acute) Nausea vomiting and diarrhea (Acute) capsaicin Allergy (Severe, Unverified 08/26/23 07:58) Anaphylaxsis clarithromycin [From Biaxin] Allergy (Intermediate, Unverified 08/26/23 07:58) Skin Rash Penicillins Allergy (Intermediate, Unverified 08/26/23 07:58) Skin Rash Sulfa (Sulfonamide Antibiotics) Allergy (Intermediate, Unverified 08/26/23 07:58) Skin Rash nickel Allergy (Mild, Unverified 08/26/23 07:58) Itching Resuscitation Status Full Code Height 5 ft 5 in Weight 97.023 kg Pharmacy Admission Review Renal Dosing Renal Dosing: BUN 25 mg/dL (7-18) H 08/27/23 06:01 Creatinine 1.2 mg/dL (0.55-1.02) H 08/27/23 06:01 Medications needing adjustments: Reviewed (CrCl 52.43 mL/min, BUN decreased to 25 and SCr decreased to 1.2 (per H+P is baseline for patient)) Anticoagulation Anticoagulation: Hgb 9.4 g/dL (11.2-15.7) L 08/27/23 06:01 Hct 28.7 % (36.0-46.0) L 08/27/23 06:01 Plt Count 202 10^3/uL (130-400) 08/27/23 06:01 Creatinine 1.2 mg/dL (0.55-1.02) H 08/27/23 06:01 Therapeutic Anticoagulation: Reviewed Medications: Enoxaparin (100mg q12h, Hgb decreased today to 9.4) Opiate Usage Evaluate Pain Scale/Pains Meds: Reviewed (Oxycodone PRN) Scheduled Bowel Reg ordered if on Opiates?: No Relevant Labs Relevant Labs: Sodium 138 mmol/L (136-145) 08/27/23 06:01 Potassium 3.7 mmol/L (3.5-5.1) 08/27/23 06:01 Chloride 102 mmol/L (98-107) 08/27/23 06:01 Electrolytes, C-Reactive P, ESR: Reviewed (WNL) DM Control DM Control: Glucose 181 mg/dL (74-106) H 08/27/23 06:01 Hemoglobin A1c 6.6 % (<5.7) H 08/26/23 08:15 Finger Stick Blood Glucose 226 Finger Stick Blood Glucose 226 Finger Stick Blood Glucose 168 Finger Stick Blood Glucose 168 Finger Stick Blood Glucose 168 Finger Stick Blood Glucose 168 DM Control: Reviewed Insulin Dosing, Diabetic Medication: Has order for SS insulin Cardiac Review Cardiac Review: Troponin I 284 ng/L (<or=60) H* 08/27/23 06:01 BP, HR, EF%: Reviewed (BP/HR WNL, troponin decreased to 284 from 294 (08/26/23)) QTc Review QTc: Reviewed (521 08/26/23) List meds needing interventions: Has order for PRN ondansetron which they received one dose yesterday at 1400. Watch for addition of any other QTc prolonging meds and if patient has increased use of ondansetron may need to consider alternative. IV to PO Switch IV Medications: Reviewed Home Meds Home Med List reviewed: Reviewed Relevent Home Meds Not ordered & why?: On home med list but no order: multivitamin, metoprolol XL 100mg daily Not on home med list: Duloxetine 60mg daily and indapamide 2.5mg daily. Contacted provider who confirmed with patient that they are taking these medications. Home med list was updated and per provider they will be doing a med rec and then putting in orders as necessary. Current Meds Current Medication Order Review: Reviewed Pharmacy Antibiotic Review Pharmacy Antibiotic Activity: C/S review and Reviewed, no change Comments: Regimen: Ceftriaxone 2g q24h day 10/01. Urine culture growing gram negative leo, blood culture still pending. Per morning meeting patient will require a few more days of IV antibiotics before transitioning to oral.
--- NOTE | 2023-08-27 12:09 | W.PM.PROGNOT ---
Date of Service Date of service: 08/27/23 Time of Service: 12:09 Assessment and Plan Assessment and plan (1) Severe sepsis: Status: Acute Assessment and plan: -blood cultures and urine culture both growing gram negative rods -Will stop IV fluids today. Lactate normalized. -Hemodynamically she has been stable with max temp 37.4 will continue to closely monitor. -responded to stress dose steroids in addition to fluid. (2) Acute UTI: Status: Acute Assessment and plan: -Cultures growing gram negative rods. -see above -Ceftriaxone 2 g daily day 2 of 7 (3) Elevated troponin: Status: Acute Assessment and plan: -peaked at 294 -no acute EKG changes or reports of chest pain echo results pending states she had negative MPI last spring, defer further outpatient work up to outpatient team. (4) Renal insufficiency: Status: Chronic Assessment and plan: Creatinine at baseline of 1.2-1.4. He is receiving hydration IV. Will avoid nephrotoxic drugs and renal dose medications as needed (5) Chronic pain: Status: Chronic Assessment and plan: Chronic back pain for which she is followed by spine at [facility]. Was scheduled for epidural injection per patient today. We have notified spine clinic that she is here as an inpatient. She will need to reschedule once medically stable. Will continue home oxycodone Will add acetaminophen every 4 hours Toradol every 6 hours and lidocaine patch as needed. she reports pain is chronic and not worsened at this time. (6) Psoriatic arthritis: Status: Acute Assessment and plan: Stable, continue home medication Consider stress dose steroids for symptoms of adrenal insufficiency (7) Diabetes mellitus: Status: Chronic Assessment and plan: Diabetic diet with sliding scale coverage before meals and at bedtime, anticipate hyperglycemia in setting of acute infection. hemoglobin A1c 6.[address] Farrell Qualifiers: Diabetes mellitus type: type 2 Diabetes mellitus [facility] insulin use: with intermodal customer service use Diabetes mellitus complication status: with other specified complication Qualified Code(s): E11.69 - Type 2 diabetes mellitus with other specified complication; Z79.4 - half-way (current) use of insulin Subjective Subjective Patient reports: no new complaints Interval history since last seen: Feels markedly improved today. Back to her baseline. She is eating and drinking. Continues to have a Mcqueen to gravity drainage draining clear yellow urine. Denies headache shortness of breath cough abdominal pain nausea or vomiting. Exam Narrative Exam Narrative: Well-appearing female of stated age no acute distress nontoxic-appearing head is atraumatic eyes normal appearance nonicteric noninjected. EOMs intact. Oral mucosa is moist neck is supple no JVD cardiovascular regular rate and rhythm respirations are even and unlabored with diminished breath sounds bilaterally abdomen is obese soft nontender with positive bowel sounds she moves all extremities skin with no rashes or lesions. She is awake alert oriented x 4 no focal deficits Objective Last Vital Signs Temp 37.0 C 08/27/23 07:26 Pulse 73 08/27/23 07:26 Resp 17 08/27/23 07:26 BP 120/69 08/27/23 07:26 Pulse Ox 95 08/27/23 07:26 Laboratory Results - last 24 hr 08/26/23 08/26/23 08/26/23 08:15 14:20 18:35 WBC RBC Hgb Hct MCV MCH MCHC RDW Plt Count MPV Immature Gran % Neutrophils % Lymphocytes % Monocytes % Eosinophils % Basophils % Nucleated RBC % Absolute Neutrophils Absolute Lymphocytes Absolute Monocytes Absolute Eosinophils Absolute Basophils VBG Lactate 2.3 H* 1.0 Sodium Potassium Chloride Carbon Dioxide Anion Gap BUN Creatinine Est GFR (CKD-EPI 2020) Glucose Hemoglobin A1c 6.6 H Calcium Troponin I 179 H* 294 H* Add-On Test Request DONE 08/27/23 06:01 WBC 7.75 RBC 3.10 L Hgb 9.4 L Hct 28.7 L MCV 93 MCH 30.3 MCHC 32.8 RDW 13.7 Plt Count 202 MPV 10.5 Immature Gran % 0.4 Neutrophils % 88.8 Lymphocytes % 6.6 Monocytes % 3.9 Eosinophils % 0.0 Basophils % 0.3 Nucleated RBC % 0.0 Absolute Neutrophils 6.89 H Absolute Lymphocytes 0.51 L Absolute Monocytes 0.30 Absolute Eosinophils 0.00 Absolute Basophils 0.02 VBG Lactate Sodium 138 Potassium 3.7 Chloride 102 Carbon Dioxide 27.0 Anion Gap 9.0 BUN 25 H Creatinine 1.2 H Est GFR (CKD-EPI 2020) 49.61 Glucose 181 H Hemoglobin A1c Calcium 8.6 Troponin I 284 H* Add-On Test Request Time Spent with Patient Time Spent with Patient: 35-49 minutes Time was spent: preparing to see the patient(eg.review tests), obtaining and/or reviewing separately otained hiistory, ordering medications,tests, procedures, indepentently interpreting results, counseling the patient and care coordination
--- NOTE | 2023-08-27 12:20 | W.NUTRFU ---
Date of service: 08/27/23 Time of Service: 11:40 Nutrition Note NOTE: received routine consult re:diabetes education Pt is 68yo female admitted for severe sepsis, UTI, elevated troponin. PMH for diabetes II with use of insulin at home - reports 24units of insulin Glargine q AM and then 10units plus sliding scale of Humalog with meals. Latest A1c was 6.6 on 08/26/23. Reports no special nutrition needs during her admission. Reports allergy to jiang and hot peppers. Tolerating CHO consistent diet this admission with stable weight and fair-good po intake. Pt declined diabetes education at this time. 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 Took my contact info should she desire any outpatient support in diabetes or wt mgt. No nutrition interventions planned at this time - will continue to monitor labs, glucose, po intake for changes. Time Spent in Nutritional Counseling and Treatment: 15 min
[2023-08-27] MEDS: cefTRIAXone 2 GM/50 ML BAG IVPB (12:36)
[2023-08-27 15:06] VITALS: BP 156/69; PULSE 85; RESP 18; TEMP 37.5; O2SAT 94
--- NOTE | 2023-08-27 16:50 | INITIAL_ITS ---
Date of service: 08/27/23 Time of Service: 16:51 Care Management Initial Assmt Initial Assessment REASON FOR HOSPITALIZATION:: Severe Sepsis, UTI, elevated troponin PREVIOUS FUNCTIONAL STATUS/SOCIAL/FAMILY SUPPORTS:: Michelle lives in [place] with her Albino. 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 Michelle has adult children however, they do not live locally. Michelle no longer drives, her provides all her transportation. Michelle shares that her mobility level fluctuates, and she sometimes uses a walker, wheelchair and has a scooter. Michelle's home is very well set up to her mobility needs. She reports that she has a ramp, shower chair and commode. CURRENT FUNCTIONAL STATUS:: Michelle was sitting up in bed when CM met with her. She stated that she is doing well, and is hopeful to be home on Friday, as she is planning a dinner alliance party for her 's birthday on Friday. Albino, her was in the room, and stated that she may not be able to have the dinner alliance party, which will be ok. Per report, cultures are pending to determine the antibiotic course that she will return home on. She expressed understanding of this plan. Michelle shared that her is very supportive, and she is looking forward to visiting with family this weekend. CM will continue to follow. ADVANCE DIRECTIVES:: Not on file; CM will offer forms. Has patient been provided with info about the portal/API?: Yes Did the patient sign up for the portal?: No CODE STATUS:: Full Code INSURANCE COVERAGE / FINANCIAL ISSUES:: [facility]. /BS. CURRENT HOME/COMMUNITY SERVICES/EQUIPMENT:: [facility], [place], w/c PRIMARY CARE PHYSICIAN:: Melissa Garcia POTENTIAL DISCHARGE NEEDS:: Evaluations for further needs, follow up appointments. PATIENT/FAMILY EDUCATION NEEDS:: Review discharge instructions and limitations, discussion of self care needs including ask me three. ANTICIPATED BARRIERS TO DISCHARGE:: None. TRANSPORTATION:: via private vehicle by . PLAN:: Anticipate Michelle will return home once medically cleared. Her will drive her home via private vehicle. She will follow up with her PCP and discharge plan of care. CM will continue to follow. PFSH All Active Problems (Updated 08/26/23 @ 14:17 by Lauryn Herrera NP) Diabetes mellitus (Chronic) Psoriatic arthritis (Acute) Severe sepsis (Acute) Acute UTI (Acute) Nausea vomiting and diarrhea (Acute) Renal insufficiency (Chronic) Polypharmacy (Acute) Bacteremia (Acute) Chronic pain (Chronic) Pneumonia (Acute) COVID (Acute) Cellulitis and abscess of foot (Acute) Contusion of right foot (Acute) Sepsis (Acute) Bone infection of left foot (Acute) Status post total left knee replacement (Acute) Pain (Acute) Lower extremity pain (Acute) Medical History Psoriatic arthritis Edema, peripheral Bacteremia due to group B Streptococcus Diabetes mellitus Surgical History History of left knee replacement s/p revision for infected prosthesis Social History Smoking/Tobacco Use Status: Never Smoking risk assessment performed?: Yes Alcohol Intake: current Alcohol Intake frequency: holidays/special occasions only Drug use: Never Substance use type: does not use Housing: house Do you feel safe at home: Yes Do you feel safe in your relationship?: Yes Additional Social history: Lives with in [place]. 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 SDOH(Care Management) Screening Will the Patient Participate in the Screening?: Yes Do you worry about having a steady place to live?: no In the past 12 months, have you had to go without electric, gas, oil or water in your home?: no Have you or anyone in your house had to go without enough food to eat?: no Has lack of transportation kept you from medical appointments or from doing things needed for daily living?: no Has anyone in your support network made you feel unsafe for any reason?: no
[2023-08-27] MEDS: Lidocaine 5% Patch 2 PATCH TP (17:57)
[2023-08-27 20:14] VITALS: BP 164/75; PULSE 87; RESP 16; TEMP 37.4; O2SAT 95
[2023-08-27] MEDS: Zolpidem 10 MG TAB PO (21:45)
[2023-08-27] MEDS: Atorvastatin 20 MG TAB PO (21:45)
[2023-08-27 23:59] VITALS: BP 153/81; PULSE 86; RESP 16; TEMP 37.2; O2SAT 95
[2023-08-28] MEDS: Acetaminophen 325 MG TAB 650 MG PO ×2 (00:10→06:11)
[2023-08-28] MEDS: Hydrocortisone SOD SUC. 100 MG VIAL 50 MG IVP ×2 (04:16→10:16)
[2023-08-28] MEDS: Normal Saline Flush 10 ML SYR IVP ×4 (04:17→10:16)
[2023-08-28] MEDS: oxyCODONE 5 MG TAB PO ×2 (04:22→15:28)
[2023-08-28] MEDS: Lidocaine Patch Removal 2 EACH TP (04:27)
[2023-08-28 06:35] LABS: Abs Immature Grans 0.05 10^3/uL (0.0-0.06); Absolute Basophil Count 0.02 10^3/uL (0.0-0.2); Absolute Lymphocyte Count 0.62 10^3/uL (1.2-3.4); Absolute Monocyte Count 0.59 10^3/uL (0.1-0.8); Absolute Neutrophil Count 7.63 10^3/uL (1.2-6.7); Basophils % 0.2; HCT 27.7 % (36.0-46.0); HGB 9.1 g/dL (11.2-15.7); Immature Grans % 0.6; MCHC 32.9 % (32.0-36.0); MCV 91 fL (80-95); MPV 10.6 fL (8.0-11.0); Monocytes % 6.6; Neutrophils % 85.6; Platelet Count 225 10^3/uL (130-400); RBC 3.03 10^6/uL (3.93-5.22); RDW 13.4 % (11.7-14.6); RDW-SD 45.3 fL; WBC 8.91 10^3/uL (4.4-10.8)
[2023-08-28] MEDS: Ondansetron 4 MG/2 ML VIAL IVP (06:55)
[2023-08-28 07:13] LABS: Anion Gap 6.3 mmol/L (3-11); BUN 23 mg/dL (7-18); CO2 27.7 mmol/L (21.0-32.0); CREATININE 1.2 mg/dL (0.55-1.02); Calcium 8.6 mg/dL (8.5-10.1); Chloride 101 mmol/L (98-107); Estimated GFR 49.61 (mL/min/1.73m2); Glucose 351 mg/dL (74-106); Potassium 3.2 mmol/L (3.5-5.1); Sodium 135 mmol/L (136-145)
[2023-08-28] MEDS: Folic Acid 1 MG TAB PO (07:53)
[2023-08-28] MEDS: Ascorbic Acid 500 MG TAB PO (07:53)
[2023-08-28] MEDS: Aspirin 81 MG CHEW PO (07:54)
[2023-08-28] MEDS: Esomeprazole 40 MG CAPCR PO (07:54)
[2023-08-28] MEDS: Calcium 600mg/Vit D 200U TAB 1 TAB PO (07:54)
[2023-08-28] MEDS: methylPREDNISolone 4 MG TAB PO (07:55)
[2023-08-28] MEDS: DULoxetine 30 MG CAP 60 MG PO (07:56)
[2023-08-28] MEDS: amLODIPine 5 MG TAB PO (07:57)
[2023-08-28] MEDS: Metoprolol CR 100 MG TABCR PO (07:57)
[2023-08-28] MEDS: Insulin Aspart 300 UNITS/3 ML PEN SC ×3 (07:58→17:11)
[2023-08-28 08:20] VITALS: BP 169/89; PULSE 82; RESP 16; TEMP 36.6; O2SAT 93
--- NOTE | 2023-08-28 09:58 | W.PM.DS.N ---
Date of service: 08/28/23 Time of Service: 14:30 DS: Diagnosis Discharge Diagnosis (1) Severe sepsis: Status: Acute (2) Acute UTI: Status: Acute (3) Elevated troponin: Status: Acute (4) Renal insufficiency: Status: Chronic (5) Chronic pain: Status: Chronic (6) Psoriatic arthritis: Status: Acute (7) Diabetes mellitus: Status: Chronic Discharge Plan Disposition Patient Disposition: Home Condition: Improving Discharge Details Reason For Visit: Severe Sepsis, UTI, Elevated Trop Admit Date/Time: 08/26/23 11:38 Admit Provider: Jourdan Farrell Attending Provider: Jourdan Farrell Primary Care Provider: Melissa Garcia Hospital Course Hospital Course: This 68-year-old female patient with a past medical history of chronic back pain, group B strep bacteremia, hypertension, sepsis, renal insufficiency, diabetes mellitus type 2, psoriasis arthritis on immunosuppressive agents, presented to the emergency room at [facility] on 08/26/23 for evaluation of malaise, dysuria, frequency, urgency, nausea and vomiting starting several days ago; the patient was also febrile at 39.5 and tachycardic with HR 117 on arrival. The patient also reported that she was scheduled for a spinal surgery on 08/27/23. Remarkable labs in the ED were COVID flu RSV negative, initial troponin less than 50, CMP shows sodium 137 potassium 3.7 which is within normal limits anion gap 12 BUN 27 creatinine 1.4 GFR is 41 total bilirubin is slightly elevated at 1.4 AST is 60 ALT 65 alk phos 122 which are elevated from her previous. Lipase within normal limits procalcitonin 6.5 and a lactate of 3.0 which are high risk for sepsis; no leukocytosis on immunosuppressant but neutrophils at 7.38 noted at the time. The urine analysis was positive for leukocytes and nitrates; the abdominal and pelvic CT only showed mildly nodular contours of the liver suggesting hepatic cirrhosis. in the ED the patient received IV fluids, IV Zofran, 1 g of IV acetaminophen and ceftriaxone 2gm IV. Repeated lactate was 2.1. The hospitalist accepted to admit the patient to the medical surgical floor as an inpatient for management and evaluation of severe sepsis, urosepsis in an immunocompromised patient. Later on the hospitalist was updated on the patient on which the serial troponin went up to 120. During her stay, the patient continued to receive IV fluid to trend down lactate levels, she received stress dose steroids and Lovenox As Her Troponin trending up to a maximum level of 294; the patient denied any chest pain. Both initial urine and blood cultures showed gram-negative rods, repeated blood cultures I have not been showing any growth. The patient chronic back pain for which she was supposed to be followed by [facility] was postponed as she was treated as an inpatient at [facility]. the patient will have to reschedule; treatment included home oxycodone with renal dose scheduled acetaminophen ketorolac and lidocaine patch as needed. The patient received stress dose steroids, and will be discharged on a taper; her diabetes mellitus was treated with sliding scale coverage before meals and at bedtime. The patient has been afebrile for 48 hours, she will be discharged home on oral cefpodoxime 400 mg every 12 hours for a total of 14 days of antibiotic therapy including the IV ceftriaxone that was initiated at [facility]. The patient will also go home on Bio-K Plus and is requesting a as needed dose of Diflucan for history of developing yeast infection on her previous episodes of sepsis treated with long-term antibiotics. The patient will need to have cardiac stress test as an outpatient due to the fact that her elevated troponin were treated with Lovenox in the context of a non-ST elevation myocardial infarction for which she remains on symptomatic. The patient will need to follow-up with her primary care doctor within 1 week of discharge. 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 Continued albuterol sulfate 3 ML solution for nebulization 1 unit Inhalation QID PRN Patient Comments: 02/10/14- pt has not used for months, per pt methylprednisolone 4 MG tablet 4 mg PO DAILY leflunomide [Arava] 20 MG tablet 20 mg PO DAILY esomeprazole magnesium [Nexium] 40 MG capsule,delayed release(DR/EC) 40 mg PO DAILY folic acid 1 MG tablet 1 mg PO DAILY zolpidem 10 MG tablet 10 mg PO HS calcium carbonate-vitamin D3 [Calcium 600 + D(3)] 1 EACH tablet 1 tab PO BID ondansetron HCl 4 mg tablet 4 mg PO Q8H PRN PRN metoclopramide HCl 5 mg tablet 5 mg PO TID Rx Instructions: 30 minutes before meals; 30 day supply filled on 05/07/22, pt unsure if she takes this oxycodone 5 mg tablet 5 - 10 mg PO Q6H PRN PRN Patient Comments: As Needed for pain for 7 days; 1 - 2 tabs orally every 6 hours PRN; ascorbic acid (vitamin C) 500 mg Tablet See Rx Instructions .ROUTE .COMPLEX Rx Instructions: 1 dose po qday; pt unable to remember strength of OTC she uses albuterol sulfate [Ventolin HFA] 90 mcg/actuation Hfa Aerosol Inhaler 2 puff inhalation Q4H PRN PRNQty: 8.5 0RF aspirin 81 mg Tablet,Chewable 81 mg PO DAILY Multi Vitamin 9 mg iron/15 mL Liquid 1 mg PO DAILY insulin lispro [Humalog KwikPen Insulin] 100 unit/mL Insulin Pen See Rx Instructions .ROUTE .COMPLEX Rx Instructions: Original sig- 10 units+SS sc tid with meals. Pt often skips breakfast and lunch dosing due to BG in range, normally injects 14 units sc with evening meal amlodipine 5 mg tablet 5 mg PO DAILY Patient Comments: TAKE ONE TABLET BY MOUTH ONCE DAILY atorvastatin 20 mg tablet 20 mg PO QPM Patient Comments: TAKE 1 TABLET BY MOUTH EVERY NIGHT AT BEDTIME metoprolol succinate 100 mg tablet extended release 24 hr 100 mg PO DAILY Patient Comments: TAKE ONE TABLET BY MOUTH ONCE DAILY insulin glargine [Lantus Solostar U-100 Insulin] 100 unit/mL (3 mL) insulin pen 20 unit SUBCUT QAM Patient Comments: INJECT 20 UNITS SUBCUTANEOUSLY EVERY MORNING DIRECTED indapamide 2.5 mg tablet 2.5 mg PO DAILY Patient Comments: TAKE ONE TABLET BY MOUTH ONCE DAILY duloxetine 60 mg capsule,delayed release(DR/EC) 60 mg PO DAILY Patient Comments: TAKE ONE CAPSULE BY MOUTH ONCE DAILY Discharge Instructions Referrals: Melissa Garcia [Primary Care Provider] - 09/04/23 9:00 am Activity:: Activity as Tolerated Equipment/Supplies:: No Equipment Needed Diet:: As Tolerated Discharge Orders Discharge Orders: Discharge Order (Routine); Ordered 08/28/23 Ordered By: Jeanna Skaggs Other Ambulatory Orders: ETT Stress Test (Outpt) (ONCE) Location: None Selected Ordered By: Jeanna Skaggs DS: Summary Time Spent with Patient providing and/or coordinating discharge services: Greater than 30 minutes Status at Discharge Functional status at discharge: independent ambulation Overall status at discharge: patient is progressing back to baseline Mental Status: mental status grossly normal Speech and Movement: speech and movement normal Mood: congruent mood Affect: normal affect Quality:SDOH Health Related Social Needs: No Data to Display Exam Narrative Exam Narrative: The patient is in bed during the exam appears comfortable and well-perfused, at bedside. Head is normocephalic and nontraumatic, without adenopathies. Facial structures are intact; external eye movements within normal limits. Chest is symmetrical, clear breath sounds posteriorly. Heart is regular, cardiac murmur heard, positive pulses to all 4 extremities felt. Abdomen is round, soft, nondistended, bowel sounds are present No CVA tenderness, and no bladder distention Ring-like marking noticed to right third toe, skin is intact as well as cap refill; no skin lesion otherwise. Psych Mental Status: mental status grossly normal Speech and Movement: speech and movement normal Mood: congruent mood Affect: normal affect DS: Data Vitals/I&O Vitals and I&O: Vital Signs Temperature 36.6 C 08/28/23 08:20 Temperature Source Tympanic 08/28/23 08:20 Pulse 82 08/28/23 08:20 Pulse Rhythm Regular 08/27/23 20:15 Pulse 96 H 08/26/23 11:40 Respiratory Rate 16 08/28/23 08:20 Respiratory Effort Normal, Non-Labored 08/27/23 20:15 Respiratory Depth Normal 08/27/23 20:15 Respiratory Pattern Normal 08/27/23 20:15 Blood Pressure 169/89 H 08/28/23 08:20 Blood Pressure Mean 69 08/26/23 11:34 Blood Pressure Position Sitting 08/26/23 07:57 Pulse Oximetry 93 08/28/23 08:20 Oxygen Delivery Method Room Air 08/28/23 08:20 Oxygen Flow Rate 0 08/28/23 08:20 Pain Level 4 08/28/23 08:20 Intake & Output 08/27/23 08/27/23 08/28/23 11:59 23:59 11:59 Intake Total 1411 / 2682 1271 / 2682 Output Total 800 / 1175 375 / 1175 675 / 675 Balance 611 / 1507 896 / 1507 -675 / -675 Intake: IV 940 / 1989 1049 / 1989 Oral 471 / 692 221 / 692 Output: Urine 800 / 1175 375 / 1175 675 / 675 Other: Urine Color Yellow Yellow Yellow Urine Appearance Clear Clear Clear Data Completed and Pending Labs on day of discharge: Labs from last 24 hours 08/28/23 06:06 WBC 8.91 RBC 3.03 L Hgb 9.1 L Hct 27.7 L MCV 91 MCH 30.0 MCHC 32.9 RDW 13.4 Plt Count 225 MPV 10.6 Immature Gran % 0.6 Neutrophils % 85.6 Lymphocytes % 7.0 Monocytes % 6.6 Eosinophils % 0.0 Basophils % 0.2 Nucleated RBC % 0.0 Absolute Neutrophils 7.63 H Absolute Lymphocytes 0.62 L Absolute Monocytes 0.59 Absolute Eosinophils 0.00 Absolute Basophils 0.02 Sodium 135 L Potassium 3.2 L Chloride 101 Carbon Dioxide 27.7 Anion Gap 6.3 BUN 23 H Creatinine 1.2 H Est GFR (CKD-EPI 2020) 49.61 Glucose 351 H Calcium 8.6 08/27/23 18:45 Blood Blood Culture - Pending 08/27/23 18:30 Blood Blood Culture - Pending Preliminary micro results at discharge 08/27/23 18:45 Blood Culture - Pending Blood 08/27/23 18:30 Blood Culture - Pending Blood 08/26/23 08:15 Blood Culture - Preliminary Blood Gram Negative [place] 08/26/23 09:57 Urine Culture - Preliminary Urine - Cath Mcqueen Indwelling Gram Negative Sacha 08/26/23 10:00 Blood Culture - Preliminary Blood NO GROWTH 24 HOURS PFSH All Active Problems (Updated 08/27/23 @ 17:14 by Lauryn Herrera NP) Elevated troponin (Acute) Diabetes mellitus (Chronic) Psoriatic arthritis (Acute) Severe sepsis (Acute) Acute UTI (Acute) Nausea vomiting and diarrhea (Acute) Renal insufficiency (Chronic) Polypharmacy (Acute) Bacteremia (Acute) Chronic pain (Chronic) Pneumonia (Acute) COVID (Acute) Cellulitis and abscess of foot (Acute) Contusion of right foot (Acute) Sepsis (Acute) Bone infection of left foot (Acute) Status post total left knee replacement (Acute) Pain (Acute) Lower extremity pain (Acute) Medical History Psoriatic arthritis Edema, peripheral Bacteremia due to group B Streptococcus Diabetes mellitus Surgical History History of left knee replacement s/p revision for infected prosthesis Social History Smoking/Tobacco Use Status: Never Smoking risk assessment performed?: Yes Alcohol Intake: current Alcohol Intake frequency: holidays/special occasions only Drug use: Never Substance use type: does not use Housing: house Do you feel safe at home: Yes Do you feel safe in your relationship?: Yes Additional Social history: Lives with in [place]. 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 Time Spent with Patient Time Spent with Patient: >85 minutes Time was spent: preparing to see the patient(eg.review tests), ordering medications,tests, procedures, referring, communicating with other health neonatal intensive care unit nurse, indepentently interpreting results, counseling the patient and care coordination
[2023-08-28] MEDS: Enoxaparin 100 MG/ML SYR SC (10:04)
[2023-08-28] MEDS: cefTRIAXone 2 GM/50 ML BAG IVPB (12:07)
[2023-08-28 15:23] VITALS: BP 177/78; PULSE 72; RESP 16; TEMP 36.9; O2SAT 95
--- NOTE | 2023-08-28 16:35 | CMDISCH_ITS ---
Date of service: 08/28/23 Time of Service: 16:35 LACE Index Scoring Tool Questions: Length of Stay (in days): 2 Was the patient admitted via the E.D.?: Yes Comorbidities: Diabetes w/o Complication E.D. Visits: 1 Answers: Total Score: 7 Risk of Readmission: Low Risk Care Management Discharge Plan Reason for Hospitalization: Severe Sepsis, UTI, elevated troponin Discharge Plan: Michelle returned home today with no new services. Her drove her home via private vehicle. She will follow up with her PCP and discharge plan of care. She is happy to be going home. Patient/Family Education Needs: Review discharge instructions and limitations, discussion of self care needs including ask me three. [facility] Health Related Social Needs: No Data to Display
== END 2023-08-28 17:54 | disposition home or self-care (01) | DRG 872 ==
LOC: ER 11:30 → MS 12:18
PROVIDERS: Nurse Practitioner Acute Care; Admitting Provider Family Medicine; Emergency Provider Registered Nurse Emergency; PCP Family Medicine; Visit Provider Family Medicine
DX: A41.50 Gram-negative sepsis, unspecified (principal); N39.0 Urinary tract infection, site not specified; D84.821 Immunodeficiency due to drugs; R65.20 Severe sepsis without septic shock; G89.29 Other chronic pain; L40.50 Arthropathic psoriasis, unspecified; Z79.4 Long term (current) use of insulin; N18.9 Chronic kidney disease, unspecified; E11.22 Type 2 diabetes mellitus with diabetic chronic kidney disease; M54.9 Dorsalgia, unspecified; Z79.899 Other long term (current) drug therapy; Z79.891 Long term (current) use of opiate analgesic; R11.2 Nausea with vomiting, unspecified; R74.8 Abnormal levels of other serum enzymes; I12.9 Hypertensive chronic kidney disease with stage 1 through stage 4 chronic kidney disease, or unspecified chronic kidney disease
CPT/HCPCS: 00123; 36415; 51702; 80048; 80053; 83690; 84145; 87040; 87077; 87637; 93005; 96361; 96365; 96375; 99291; 71046; 74176; 81003; 81015; 83036; 83605; 84484; 85025; 87086; 87186; 93010; 93306; 99223; 99233; 99239; J0131; J0457; J0696; J1650; J1720; J1815; J1885; J2270; J2405; J3490; J7509

== ENCOUNTER → 2023-09-08 01:45 | Outpatient (CLI) | payer MEDICARE, BC, SELFPAY ==
--- NOTE | 2023-09-08 | DI.NM_ITS ---
APPROVED REPORT Exam: Pharmacologic Patient Location: Out-Patient Room/Bed: Stress Nurse: Ria Santos RN Ordering Provider:FARZAD LADI, Contact Number: [phone] BMI: 36.60 Baseline Rhythm: Sinus Rhythm Indications: chronic ischemic heart disease Medical History Medical History: severe sepsis, UTI, elevated troponins, DM2, PA, chronic back pain, renal insufficie ncy Cardiac Medications: cefpodoxime, albuterol sulfate, methylprednisolone, leflunoxide, esomeprazole, f olic acid, zolpidem, calcium carbonate, vitamin D3, zofran, reglan, oxycodone, aspirin, insulin lispr o, amlodipine, atorvastatin, metoprolol succ, lantus, indapamide, duloxetine Allergies: capsaicin, clarithromycin, penicillin, sulfa, pb Cardiac Risk Factors: Family Hx, HTN, HLD, DM, Asthma, Obesity Previous Cardiac Procedures: Stress Test Pretest Chest Pain Characteristics: None Exercise History: Sedentary Physical Disabilities: Knees, Back Lung Sounds: Clear to auscultation Heart Sounds: Regular Stress Test Details Test: Pharmacologic stress testing performed using 0.4 mg of regadenoson per 5 mL given IV over 10 s econds. Nuclear Acquisition: Rest Tc-99m/Stress Tc-99m 1 day Rest Isotope: Tc-99m Sestamibi. Dose: 10 Date: 09/08/2023 Injection Time: 0915 Stress Isotope: Tc-99m Sestamibi. Dose: 30 Date: 09/08/2023 Injection Time: 1045 HR Resting HR Supine: 66 bpm Max Heart Rate (APMHR): 153.861112 bpm Target HR (85% APMHR): 130.181398 bpm Max HR Achieved: 84 bpm % of APMHR: 54.90 Recovery HR: 80 bpm BP Resting BP Supine: 132/82 mmHg Max BP: 152/82 mmHg Recovery BP: 152/78 mmHg ECG Resting ECG: Sinus Rhythm Ectopy: none Stress ECG: Sinus Rhythm ST Change: No significant ST segment changes noted Arrhythmia: None Recovery ECG: Sinus Rhythm Recovery ST Change: No significant ST segment changes noted Recovery Arrhythmia: None Clinical Rate Pressure Product: [id number] Stress ECG Conclusion 1. 1. Normal clinical,BP,HR and ECG responses 2. 2. Nuclear findings reported separately. Stress Test Summary STAGE HR BP SpO2 Symptoms NOTES Supine 66 132/82 97 1 min post Lexiscan injection 83 148/68 98 SOB, chest pressure 3 min post Lexiscan injection 82 152/82 98 GRAMAJO 6 min post Lexiscan injection 80 152/78 98 SOB and chest pressure resolved, GRAMAJO lingering MPI Conclusion 1. Normal myocardial perfusion, no ischemia or infarct. 2. Normal LV systolic function without wall motion abnormality, EF 62%. Radiologist Interpretation Radiologist agrees with Criminology Teacher's Interpretation. Radiologist Interpretation by: Jadyn Pretty MD Interpretation Date/Time: 09/08/2023 15:58:37
[2023-09-08] MEDS: Regadenoson 0.4 MG/5 ML SYR IVP (10:39)
== END ==
PROVIDERS: PCP Family Medicine; Visit Provider Family Medicine
DX: I25.9 Chronic ischemic heart disease, unspecified (principal)
CPT/HCPCS: 78452; 93016; 93018; 93017; J2785

== ENCOUNTER 2023-09-18 15:17 | Outpatient (REF) | payer MEDICARE, BC, SELFPAY ==
[2023-09-18 21:59] LABS: HCT 35.8 % (36.0-46.0); HGB 11.3 g/dL (11.2-15.7); MCH 30.1 pg (27.0-33.0); MCHC 31.6 % (32.0-36.0); MCV 96 fL (80-95); MPV 10.3 fL (8.0-11.0); Platelet Count 328 10^3/uL (130-400); RBC 3.75 10^6/uL (3.93-5.22); RDW 14.9 % (11.7-14.6); RDW-SD 51.6 fL; WBC 6.15 10^3/uL (4.4-10.8)
[2023-09-18 22:21] LABS: Iron 67 ug/dL (50-170); Total Iron Binding Capacity 138 ug/dL (250-450); Transferrin Sat 49 % (15-50)
[2023-09-18 22:44] LABS: ALT 34 U/L (14-59); AST 24 U/L (15-37); Albumin 3.5 g/dL (3.4-5.0); Alkaline Phosphatase 87 U/L (46-116); Anion Gap 8.8 mmol/L (3-11); BUN 22 mg/dL (7-18); Bilirubin, Total 0.5 mg/dL (0.2-1.0); CO2 28.2 mmol/L (21.0-32.0); CREATININE 1.2 mg/dL (0.55-1.02); Calcium 9.3 mg/dL (8.5-10.1); Chloride 104 mmol/L (98-107); Estimated GFR 49.61 (mL/min/1.73m2); Ferritin 232 ng/mL (8-252); Folate > 20.0 ng/mL (8.6-20.0); Glucose 162 mg/dL (74-106); Potassium 4.7 mmol/L (3.5-5.1); Sodium 141 mmol/L (136-145); Total Protein 6.6 g/dL (6.4-8.2); Vitamin B12 > 2000 pg/mL (193-986)
[2023-09-18 23:01] LABS: FREE T4 0.83 ng/dL (0.76-1.46)
== END 2023-09-18 15:18 | disposition home or self-care (01) ==
LOC: NCHCN 15:17
PROVIDERS: PCP Family Medicine; Visit Provider Family Medicine
DX: D64.9 Anemia, unspecified (principal); R30.0 Dysuria; R82.89 Other abnormal findings on cytological and histological examination of urine
CPT/HCPCS: 80053; 85027; 82607; 82728; 82746; 83540; 83550; 84439; 84443; 85045; 87086

== ENCOUNTER 2023-09-30 16:31 | Observation (INO) | payer MEDICARE, BC, SELFPAY ==
[2023-09-30] VITALS (19 sets, daily range): BP systolic 146–210; BP diastolic 54–87; PULSE 81–177; RESP 2–20; TEMP 36.5–39.6; O2SAT 78–94
--- NOTE | 2023-09-30 16:40 | ED.GENADUL_ITS ---
HPI General Date/Time Provider Initiated Documentation: 09/30/23 16:40 . HPI Narrative: 68 year-old female presents to ED today by EMS with a chief complaint of intractable nausea/vomiting, ongoing today- saw her grandchildren over the weekend who she reports had a stomach virus with NVD. Quality described as generalized abdominal pain- not severe, lots of coughing recently, and intractable nausea/vomiting, denies known diarrhea, no radiation to palpitations, chest pain, syncope, hematemesis, black/bloody stools. Patient endorses dysuria. Severity is described as 9/10. Palliating factors include 2 Zofran today prior to EMS arrival. Provoking factors include nothing specific. Events leading up to the incident/Associated Symptoms: Patient has t2DM and reports her sugars have been good. Patient not anticoagulated. Related Data Home Medications Medication Instructions Recorded Confirmed albuterol sulfate 2.5 mg/3 mL 1 unit inhalation QID PRN 01/11/14 09/30/23 (0.083 %) solution for nebulization calcium carbonate 600 mg-vitamin 1 tab PO BID 01/11/14 09/30/23 D3 10 mcg (400 unit) tablet (Calcium 600 + D(3)) esomeprazole magnesium 40 mg 40 mg PO DAILY 01/11/14 09/30/23 capsule,delayed release (Nexium) folic acid 1 mg tablet 1 mg PO DAILY 01/11/14 09/30/23 leflunomide 20 mg tablet (Arava) 20 mg PO DAILY 01/11/14 09/30/23 methylprednisolone 4 mg tablet 4 mg PO DAILY 01/11/14 09/30/23 zolpidem 10 mg tablet 10 mg PO HS 01/11/14 09/30/23 aspirin 81 mg chewable tablet 81 mg PO DAILY 04/09/19 09/30/23 insulin lispro 100 unit/mL See Rx Instructions .Route .COMPLEX 04/09/19 09/30/23 subcutaneous pen (Humalog KwikPen (U-100) Insulin) multivitamin with minerals-iron 1 mg PO DAILY 04/09/19 09/30/23 fumarate 9 mg iron/15 mL oral liquid (Multi Vitamin) ondansetron HCl 4 mg tablet 4 mg PO Q8H PRN PRN 05/10/22 09/30/23 oxycodone 5 mg tablet 5 - 10 mg PO Q6H PRN PRN 05/10/22 09/30/23 albuterol sulfate 90 mcg/actuation 2 puff inhalation Q4H PRN PRN #8.5 05/13/22 09/30/23 aerosol inhaler (Ventolin HFA) grams atorvastatin 20 mg tablet 20 mg PO QPM 08/26/23 09/30/23 indapamide 2.5 mg tablet 2.5 mg PO DAILY 08/27/23 09/30/23 insulin glargine 100 unit/mL (3 32 unit subcut HS 08/27/23 09/30/23 mL) subcutaneous pen (Lantus Solostar U-100 Insulin) lisinopril 10 mg tablet 10 mg PO DAILY 09/30/23 09/30/23 montelukast 10 mg tablet 10 mg PO QHS 09/30/23 09/30/23 (Singulair) Previous Rx's Medication Instructions Recorded albuterol sulfate 90 mcg/actuation 2 puff inhalation Q4H PRN PRN #8.5 05/13/22 aerosol inhaler (Ventolin HFA) grams Allergies Allergy/AdvReac Type Severity Reaction Status Date / Time capsaicin Allergy Severe Anaphylaxsi Unverified 08/26/23 07:58 s clarithromycin [From Biaxin] Allergy Intermediate Skin Rash Unverified 08/26/23 07:58 Penicillins Allergy Intermediate Skin Rash Unverified 08/26/23 07:58 Sulfa (Sulfonamide Allergy Intermediate Skin Rash Unverified 08/26/23 07:58 Antibiotics) nickel Allergy Mild Itching Unverified 08/26/23 07:58 General Stated Complaint: Nausea/Vomit/Diar ARABELLA: 3 Review of Systems All systems reviewed & are unremarkable except as noted in HPI and below Exam Narrative Exam Narrative: GENERAL APPEARANCE: Well-nourished, morbidly obese, non-toxic, awake and alert, atraumatic, no acute distress. SKIN: Warm, pale, dry, intact, without rashes/lesions/ulcerations. HEAD: Normocephalic, atraumatic, normal hair distribution for gender/age. EYES: Pupils PERRLA, EOMs intact without nystagmus, normal conjunctiva, no exudates on lids/lashes. ENT: Nares patent, no circumoral cyanosis, no facial swelling, dry mucous membranes. NECK: Supple, trachea midline, painless cervical ROM. LUNGS/CHEST: Lungs CTA bilaterally- no rhonchi/rales/wheezes diffusely, non- labored respirations, normal A/P diameter, symmetrical expansion, no chest wall deformity HEART (CV/PV): Regular rate and rhythm with murmur 1/6 systolic murmur best heard at LSB, no peripheral edema, no JVD. ABDOMEN: Hyperactive bowel sounds diffuesly, soft, non-distended, no guarding, LLQ tenderness, RUQ palpation causes nausea. MSK: Normal ROM, no swelling/deformity to bilateral UEs or LEs, moving all extremities without weakness, no cyanosis, spine midline without tenderness, normal curvature. NEURO: Mental Status AAOx4 - alert to person, place, time, events No facial droop, no forehead involvement. Motor: No focal weakness - strength 5/5 in bilateral UEs and LEs, proximal and distal, symmetric. Sensory: sensation intact to light touch globally. Gait normal: patient ambulated without ataxia into ED room. PSYCH: euthymic, cooperative, pleasant, appropriate speech Course Vital Signs Vital signs: Vital Signs Temperature 36.6 C 09/30/23 16:32 Pulse 110 H 09/30/23 16:32 Respiratory Rate 18 09/30/23 16:32 Blood Pressure 206/77 H 09/30/23 16:32 Pulse Oximetry 93 09/30/23 16:32 Temperature 36.6 C 09/30/23 16:32 Temperature Source Temporal Artery Scan 09/30/23 16:32 Pulse 110 H 09/30/23 16:32 Respiratory Rate 18 09/30/23 16:32 Blood Pressure 206/77 H 09/30/23 16:32 Blood Pressure Position Sitting 09/30/23 16:32 Pulse Oximetry 93 09/30/23 16:32 Oxygen Delivery Method Room Air 09/30/23 16:32 Oxygen Flow Rate 0 09/30/23 16:32 Medical Decision Making This dictation utilizes [id number] dictation software and may contain unedited grammatical errors. 68 y/o F presents to ED today with a chief complaint of intractable nausea/vomiting, ongoing today after being exposed to possible stomach bug by grandchildren over the weekend, not responding well to at-home Zofran. Patient endorses dysuria, denies high fever, denies high blood sugars in the setting of chronic DM, denies chest pain, endorses coughing. Patients' medical history: History of UTIs, diabetes mellitus, psoriatic arthritis, renal insufficiency, history of cellulitis, history of sepsis, history osteomyelitis of left foot. Family and social history: morbidly obese. -Per EMS report, she was happy and laughing at-home, was reporting mild symptoms, and stated she just didn't have a ride to ER, and became lethargic only on arrival to ED and wet the stretcher. Pertinent exam findings / vital signs include: hypertension, mildly tachycardic LUNGS/CHEST: Lungs CTA bilaterally- no rhonchi/rales/wheezes diffusely, non- labored respirations, normal A/P diameter, symmetrical expansion, no chest wall deformity HEART (CV/PV): Regular rate and rhythm with murmur 1/6 systolic murmur best heard at LSB, no peripheral edema, no JVD. ABDOMEN: Hyperactive bowel sounds diffuesly, soft, non-distended, no guarding, LLQ tenderness, RUQ palpation causes nausea. Differential / pathologies of concern include Gastroenteritis, URI/PNA, Biliary Colic, Electrolyte Abnormality, UTI, DKA, Sepsis, Diverticulitis. Diagnostic studies of: -CBC, CMP, lactate, procalcitonin, lipase, magnesium, CK, Trop I, BNP, CRP/ESR, urinalysis, VBG, COVID/flu/RSV PCR, x-ray chest, CT abdomen pelvis with contrast, EKG. - positive for Influenza A - initial lactate 2.5, giving IVF and re-checking q2hr - do not suspect sepsis, repeat is 2.3, reflexing to Blood Cx's - CBC without leukocytosis, HgB stable wnl - CMP shows baseline SCr 1.2 - mild low Mg++, likely GI losses - CRP 1.68 non-specific - BNP 1000, has been 2500 before, no hypoxia - Lipase neg - UA no UTI - XR Chest shows no multifocal pneumonia. - CT ABD/Pelvis w Contrast shows no acute findings. -EKG shows heart rate of 106 bpm and sinus tachycardia, normal QTc for antiemetic use, left axis deviation with a right bundle branch block with some ST depression in lead I without reciprocal changes, present on prior EKG from August 2023 Interventions of: -1.5L Lactated Ringers, IV Tylenol, Home-dose lisinopril. -BP still uncontrolled 200 SBP, given 500mL final bolus for total of 2L -Patient developed fever here in ED to 39.6, was voluntarily urinating her bed multiple times, states she feels lousy, states he cannot take care of her, no signs of hypoxic respiratory failure ED Course/Assessment/Plan: 68-year-old patient with COPD and T2DM presents with significant coughing, nausea and vomiting at home onset today and profound weakness, she was found to have influenza A with an elevated lactate of 2.5 which did not sidney with 1.5 L lactated Ringer's, BNP is mildly elevated without official diagnosis of CHF. Her chest x-ray shows no multifocal pneumonia and she had left lower quadrant tenderness without findings on CT. states that she is profoundly weak and he cannot take care of her, she did have trouble with urinary incontinence here in the ED and stated that she had dysuria but without findings of UTI on UA. I discussed the case with hospitalist Dr. Guardado who accepted the patient for admission for influenza A in the setting of COPD with a mild respiratory acidosis. Disposition of Influenza A. Patient verbalized understanding of the plan and return to ED criteria and engaged in shared decision making. Medical Records Medical records reviewed: Yes I reviewed the patient's medical records. Imaging Data Radiologic Study: Attestation: I personally reviewed and interpreted this imaging study as follows: Imaging: X-Ray Radiologist's impression: EXAM: XR CHEST 2V PA LATERAL CLINICAL HISTORY: cough. TECHNIQUE: 2D digital imaging was performed. COMPARISON: CR XR CHEST 2V PA LATERAL from 08/26/2023 FINDINGS: 2 views: Heart size is normal. The mediastinum is not widened. Lungs are clear. No infiltrates nor pleural effusions. IMPRESSION: No acute pulmonary findings.No significant change compared to 08/26/2023. Radiologic Study #2: Attestation: I personally reviewed and interpreted this imaging study as follows: Imaging: CT Scan Radiologist's impression: Exam(s) CT ABDOMEN PELVIS W EXAM: CT ABDOMEN PELVIS W CLINICAL HISTORY: LLQ tenderness, NVD. TECHNIQUE: Imaging Protocol: Axial computed tomography images with coronal and sagittal reformatted images were created and reviewed CONTRAST MATERIAL: Intravenous: Omnipaque-350 100cc Oral: None COMPARISON: CT CT ABDOMEN PELVIS WO from 08/26/2023 FINDINGS: VISUALIZED LUNG BASES: No nodules nor pleural effusions evident. Calcified mitral valve annulus in the heart noted. ABDOMEN: There is no ascites. LIVER: There are no focal hepatic lesions evident. No dilated intrahepatic ducts. GALLBLADDER/BILIARY: Gallbladder is again noted to be surgically absent. CBD is not dilated. PANCREAS: No evidence of pancreatic mass nor dilatation of the pancreatic duct. SPLEEN: Spleen is not enlarged. No obvious intrasplenic lesions. Splenic and portal veins are patent. ADRENALS: There are no significant adrenal masses. KIDNEYS:There is a E tiny nonobstructive calculus in lower pole calyx of the left kidney again noted. No calculi in the right kidney. No renal masses nor cysts. Small amount of fluid subjacent to the kidneys again noted. No hydronephrosis nor hydroureter. No calculi in the lower ureters nor in the nondistended urinary bladder.. ABDOMINAL AORTA: Abdominal aorta is calcified but not enlarged. Common iliac arteries are also calcified but not enlarged. LYMPH NODES:There is no retroperitoneal nor paraaortic adenopathy. ABDOMINAL WALL: No evidence of significant anterior abdominal wall nor inguinal hernia. GI: There is no evidence of bowel obstruction, free air, nor abscess. PELVIS: GI: No evidence of appendicitis.No evidence of sigmoid diverticulitis. LYMPH NODES: There is no intrapelvic nor inguinal adenopathy. REPRODUCTIVE: Uterus is surgically absent. No abnormal adnexal masses. No free fluid in the pelvis. URINARY BLADDER: No calculi nor obvious masses evident. The previously present Mcqueen catheter is been removed. OSSEOUS: No fractures and no significant osseous lesions. Previous decompression surgery in the lumbar spine noted. Multilevel chronic degenerative disc disease. No osseous lesions. IMPRESSION: 1. Previous cholecystectomy and hysterectomy. No evidence of bowel obstruction, free air, nor abscess. 2. Solitary tiny 2 millimeter nonobstructive calculus in lower pole calyx of the left kidney again noted. No hydronephrosis nor hydroureter and no calculi seen in the urinary bladder. 3. No acute findings in the abdomen and pelvis. Called by myself to ER physician. Lab Data Lab results reviewed: Yes I reviewed the patient's lab results. Labs: 09/30/23 20:10 Blood Blood Culture - Pending 09/30/23 20:10 Blood Blood Culture - Pending Laboratory Tests Range/Units 09/30/23 09/30/23 16:58 20:00 WBC (4.4-10.8) 10^3/uL 7.43 RBC (3.93-5.22) 10^6/uL 4.05 Hgb (11.2-15.7) g/dL 12.1 Hct (36.0-46.0) % 37.6 MCV (80-95) fL 93 MCH (27.0-33.0) pg 29.9 MCHC (32.0-36.0) % 32.2 RDW (11.7-14.6) % 14.0 Plt Count (130-400) 10^3/uL 301 MPV (8.0-11.0) fL 9.3 Immature Gran % 0.5 Neutrophils % 79.1 Lymphocytes % 9.2 Monocytes % 8.1 Eosinophils % 1.9 Basophils % 1.2 Nucleated RBC % (0.0-0.3) % 0.0 Absolute Neutrophils (1.2-6.7) 10^3/uL 5.88 Absolute Lymphocytes (1.2-3.4) 10^3/uL 0.68 L Absolute Monocytes (0.1-0.8) 10^3/uL 0.60 Absolute Eosinophils (0.0-0.7) 10^3/uL 0.14 Absolute Basophils (0.0-0.2) 10^3/uL 0.09 ESR (0-30) mm/hr 19 VBG pH (7.31-7.41) 7.33 VBG pCO2 (41-51) mmHg 51 VBG pO2 mmHg 28 VBG HCO3 (23-28) mmol/L 26 VBG Total CO2 (24-29) mmol/L 25 VBG O2 Saturation % 45 VBG Base Excess (-2-3) mmol/L 1 VBG Lactate (0.6-1.4) mmol/L 2.5 H* 2.3 H* Sodium (136-145) mmol/L 139 Potassium (3.5-5.1) mmol/L 4.0 Chloride (98-107) mmol/L 101 Carbon Dioxide (21.0-32.0) mmol/L 25.4 Anion Gap (3-11) mmol/L 12.6 H BUN (7-18) mg/dL 21 H Creatinine (0.55-1.02) mg/dL 1.2 H Est GFR (CKD-EPI 2020) (mL/min/1.73m2) 49.61 Glucose (74-106) mg/dL 245 H Calcium (8.5-10.1) mg/dL 9.2 Magnesium (1.8-2.4) mg/dL 1.6 L Total Bilirubin (0.2-1.0) mg/dL 0.6 AST (15-37) U/L 34 ALT (14-59) U/L 28 Alkaline Phosphatase (46-116) U/L 87 Creatine Kinase (26-192) U/L 43 Troponin I (< or =60) ng/L < 50 C-Reactive Protein (<or=0.5) mg/dL 1.68 H NT-Pro-B Natriuret Pep (<300) pg/mL 1018 H Total Protein (6.4-8.2) g/dL 7.1 Albumin (3.4-5.0) g/dL 3.3 L Lipase (16-77) U/L 11 L Procalcitonin ng/mL < 0.1 Urine Color (Yellow) Yellow Urine Clarity (Clear) Clear Urine pH (5-8) 5.5 Ur Specific Warden (1.005-1.025) 1.020 Urine Protein (Negative) mg/dL 30 H Urine Ketones (Negative) mg/dL Negative Urine Blood (Negative) Negative Urine Nitrite (Negative) Negative Urine Bilirubin (Negative) Negative Urine Urobilinogen (Up to 0.2) mg/dL 0.2 Ur Leukocyte Esterase (Negative) Negative Urine RBC (0-2) HPF 0-2 Urine WBC (0-5) HPF 0-2 Ur Epithelial Cells (Negative) HPF Few Urine Crystals (Negative) HPF Negative Urine Bacteria (Negative) HPF Negative Urine Mucus (Negative) Negative Ur Culture Indicated? No Urine Glucose (Negative) mg/dL Negative COVID-19 Source NASOPHARYNX SARS-CoV-2 (PCR) (Negative) Negative Influenza Type A (PCR) (Negative) Positive A Influenza Type B (PCR) (Negative) Negative RSV (PCR) (Negative) Negative Quality:SDOH Health Related Social Needs: No Data to Display PFSH All Active Problems Influenza A (Acute) Diabetes mellitus (Chronic) Psoriatic arthritis (Acute) Renal insufficiency (Chronic) Polypharmacy (Acute) Bacteremia (Acute) Pneumonia (Acute) COVID (Acute) Cellulitis and abscess of foot (Acute) Contusion of right foot (Acute) Sepsis (Acute) Bone infection of left foot (Acute) Status post total left knee replacement (Acute) Pain (Acute) Lower extremity pain (Acute) Medical History Elevated troponin Severe sepsis Acute UTI Chronic pain Edema, peripheral Bacteremia due to group B Streptococcus Surgical History 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 Discharge Plan Disposition Patient Disposition: Admit to [facility] Condition: Stable Discharge Details Clinical Impression: Influenza A Primary Care Provider: Melissa Garcia ED Provider: Jayy Ying Home Meds and New Rx's Prescriptions: No Action albuterol sulfate 3 ML solution for nebulization 1 unit Inhalation QID PRN Patient Comments: 02/10/14- pt has not used for months, per pt methylprednisolone 4 MG tablet 4 mg PO DAILY leflunomide [Arava] 20 MG tablet 20 mg PO DAILY esomeprazole magnesium [Nexium] 40 MG capsule,delayed release(DR/EC) 40 mg PO DAILY folic acid 1 MG tablet 1 mg PO DAILY zolpidem 10 MG tablet 10 mg PO HS calcium carbonate-vitamin D3 [Calcium 600 + D(3)] 1 EACH tablet 1 tab PO BID ondansetron HCl 4 mg tablet 4 mg PO Q8H PRN PRN oxycodone 5 mg tablet 5 - 10 mg PO Q6H PRN PRN Patient Comments: As Needed for pain for 7 days; 1 - 2 tabs orally every 6 hours PRN; albuterol sulfate [Ventolin HFA] 90 mcg/actuation Hfa Aerosol Inhaler 2 puff inhalation Q4H PRN PRNQty: 8.5 0RF montelukast [Singulair] 10 mg tablet 10 mg PO QHS lisinopril 10 mg tablet 10 mg PO DAILY aspirin 81 mg Tablet,Chewable 81 mg PO DAILY Multi Vitamin 9 mg iron/15 mL Liquid 1 mg PO DAILY insulin lispro [Humalog KwikPen Insulin] 100 unit/mL Insulin Pen See Rx Instructions .ROUTE .COMPLEX Rx Instructions: Original sig- 10 units+SS sc tid with meals. Pt often skips breakfast and lunch dosing due to BG in range, normally injects 14 units sc with evening meal atorvastatin 20 mg tablet 20 mg PO QPM Patient Comments: TAKE 1 TABLET BY MOUTH EVERY NIGHT AT BEDTIME insulin glargine [Lantus Solostar U-100 Insulin] 100 unit/mL (3 mL) insulin pen 32 unit SUBCUT HS Patient Comments: INJECT 20 UNITS SUBCUTANEOUSLY EVERY MORNING DIRECTED indapamide 2.5 mg tablet 2.5 mg PO DAILY Patient Comments: TAKE ONE TABLET BY MOUTH ONCE DAILY
--- NOTE | 2023-09-30 16:45 | RT.EKG_ITS ---
APPROVED REPORT Exam: Resting ECG Reason for Exam: QTc screening, antiemetics Patient Location: E HR:106 bpm ECG Measurements Heart Rate 106 AXIS SD 184 P 54 QRSd 135 QRS -78 QT 357 T 93 QTc 475 Conclusion Sinus tachycardia no stemi RBBB non specific st depressions no prior for comparison
--- NOTE | 2023-09-30 16:45 | DI.CT_ITS ---
Exam(s) CT ABDOMEN PELVIS W EXAM: CT ABDOMEN PELVIS W CLINICAL HISTORY: LLQ tenderness, NVD. TECHNIQUE: Imaging Protocol: Axial computed tomography images with coronal and sagittal reformatted images were created and reviewed CONTRAST MATERIAL: Intravenous: Omnipaque-350 100cc Oral: None COMPARISON: CT CT ABDOMEN PELVIS WO from 08/26/2023 FINDINGS: VISUALIZED LUNG BASES: No nodules nor pleural effusions evident. Calcified mitral valve annulus in t he heart noted. ABDOMEN: There is no ascites. LIVER: There are no focal hepatic lesions evident. No dilated intrahepatic ducts. GALLBLADDER/BILIARY: Gallbladder is again noted to be surgically absent. CBD is not dilated. PANCREAS: No evidence of pancreatic mass nor dilatation of the pancreatic duct. SPLEEN: Spleen is not enlarged. No obvious intrasplenic lesions. Splenic and portal veins are paten t. ADRENALS: There are no significant adrenal masses. KIDNEYS:There is a E tiny nonobstructive calculus in lower pole calyx of the left kidney again noted. No calculi in the right kidney. No renal masses nor cysts. Small amount of fluid subjacent to the kidneys again noted. No hydronephrosis nor hydroureter. No calculi in the lower ureters nor in the nondistended urinary bladder.. ABDOMINAL AORTA: Abdominal aorta is calcified but not enlarged. Common iliac arteries are also calci fied but not enlarged. LYMPH NODES:There is no retroperitoneal nor paraaortic adenopathy. ABDOMINAL WALL: No evidence of significant anterior abdominal wall nor inguinal hernia. GI: There is no evidence of bowel obstruction, free air, nor abscess. PELVIS: GI: No evidence of appendicitis.No evidence of sigmoid diverticulitis. LYMPH NODES: There is no intrapelvic nor inguinal adenopathy. REPRODUCTIVE: Uterus is surgically absent. No abnormal adnexal masses. No free fluid in the pelvis. URINARY BLADDER: No calculi nor obvious masses evident. The previously present Mcqueen catheter is bee n removed. OSSEOUS: No fractures and no significant osseous lesions. Previous decompression surgery in the lumbar spine noted. Multilevel chronic degenerative disc disea se. No osseous lesions. IMPRESSION: 1. Previous cholecystectomy and hysterectomy. No evidence of bowel obstruction, free air, nor absces s. 2. Solitary tiny 2 millimeter nonobstructive calculus in lower pole calyx of the left kidney again no gurwinder. No hydronephrosis nor hydroureter and no calculi seen in the urinary bladder. 3. No acute findings in the abdomen and pelvis. Called by myself to ER physician. RADIATION DOSE DELIVERED: 1,137.18mGy.cm Total DLP DATA REPOSITORY: All CT scans at this facility are submitted to the National Radiology Data Registry (NRDR) Dose Index Registry (DIR) with the [employer] (A[employer]). RADIATION OPTIMIZATION: All CT scans at this facility use at least one of these dose optimization te chniques: automated exposure control; mA and/or kV adjustment per patient size (includes targeted exa ms where dose is matched to clinical indication); or iterative reconstruction.
--- NOTE | 2023-09-30 16:45 | DI.RAD_ITS ---
Exam(s) XR CHEST 2V PA LATERAL EXAM: XR CHEST 2V PA LATERAL CLINICAL HISTORY: cough. TECHNIQUE: 2D digital imaging was performed. COMPARISON: CR XR CHEST 2V PA LATERAL from 08/26/2023 FINDINGS: 2 views: Heart size is normal. The mediastinum is not widened. Lungs are clear. No infiltrates nor pleural effusions. IMPRESSION: No acute pulmonary findings.No significant change compared to 08/26/2023. DATA REPOSITORY: RADIATION DOSE DELIVERED:
[2023-09-30 17:06] LABS: BE (Venous) 1 mmol/L (-2-3); HCO3 (Venous) 26 mmol/L (23-28); O2 Sat (Venous) 45 %; TCO2 (Venous) 25 mmol/L (24-29); pCO2 (Venous) 51 mmHg (41-51); pH (Venous) 7.33 (7.31-7.41); pO2 (Venous) 28 mmHg
[2023-09-30 17:07] LABS: Abs Immature Grans 0.04 10^3/uL (0.0-0.06); Absolute Basophil Count 0.09 10^3/uL (0.0-0.2); Absolute Eosinophil Count 0.14 10^3/uL (0.0-0.7); Absolute Lymphocyte Count 0.68 10^3/uL (1.2-3.4); Absolute Neutrophil Count 5.88 10^3/uL (1.2-6.7); Basophils % 1.2; Eosinophils % 1.9; HCT 37.6 % (36.0-46.0); HGB 12.1 g/dL (11.2-15.7); Immature Grans % 0.5; Lymphocytes % 9.2; MCH 29.9 pg (27.0-33.0); MCHC 32.2 % (32.0-36.0); MCV 93 fL (80-95); MPV 9.3 fL (8.0-11.0); Monocytes % 8.1; Neutrophils % 79.1; Platelet Count 301 10^3/uL (130-400); RBC 4.05 10^6/uL (3.93-5.22); RDW-SD 47.9 fL; WBC 7.43 10^3/uL (4.4-10.8)
[2023-09-30 17:10] LABS: Lactate 2.5 mmol/L (0.6-1.4)
[2023-09-30 17:11] LABS: ESR 19 mm/hr (0-30)
[2023-09-30 17:14] LABS: Bilirubin Negative (Negative); Blood Negative (Negative); Clarity Clear (Clear); Glucose Negative (Negative); Ketones Negative (Negative); Leukocyte Esterase Negative (Negative); Nitrite Negative (Negative); Urobilinogen 0.2 mg/dL (Up to 0.2); pH 5.5 (5-8)
[2023-09-30] MEDS: Lactated Ringers 1,000 ML 1000 ML IV (17:15)
[2023-09-30 17:23] LABS: Bacteria Negative HPF (Negative); C & S Indicated? No; Crystals Negative HPF (Negative); Epithelial Cells Few HPF (Negative); Mucus Negative (Negative); RBC 0-2 HPF (0-2); WBC 0-2 HPF (0-5)
[2023-09-30 17:32] LABS: ALT 28 U/L (14-59); AST 34 U/L (15-37); Albumin 3.3 g/dL (3.4-5.0); Alkaline Phosphatase 87 U/L (46-116); Anion Gap 12.6 mmol/L (3-11); BUN 21 mg/dL (7-18); Bilirubin, Total 0.6 mg/dL (0.2-1.0); C-Reactive Protein 1.68 mg/dL (<or=0.5); CO2 25.4 mmol/L (21.0-32.0); CREATININE 1.2 mg/dL (0.55-1.02); Calcium 9.2 mg/dL (8.5-10.1); Chloride 101 mmol/L (98-107); Creatine Kinase 43 U/L (26-192); Estimated GFR 49.61 (mL/min/1.73m2); Glucose 245 mg/dL (74-106); Lipase 11 U/L (16-77); Magnesium 1.6 mg/dL (1.8-2.4); NT-proBNP 1018 pg/mL (<300); Sodium 139 mmol/L (136-145); Total Protein 7.1 g/dL (6.4-8.2); Troponin I < 50 ng/L (< or =60)
[2023-09-30 17:45] LABS: COVID-19 PCR Negative (Negative); Influenza A PCR Positive (Negative); Influenza B PCR Negative (Negative); Procalcitonin < 0.1 ng/mL; RSV PCR Negative (Negative)
[2023-09-30 17:47] LABS: Source NASOPHARYNX
[2023-09-30] MEDS: Normal Saline - Diluent 50 ML VIAL IJ (18:26)
[2023-09-30] MEDS: Omnipaque 350 MG/ML 100 ML BTL IJ (18:27)
[2023-09-30] MEDS: Lactated Ringers 500 ML IV ×2 (19:10→20:26)
[2023-09-30] MEDS: Lisinopril 10 MG TAB PO (20:07)
[2023-09-30] MEDS: ACETAMINOPHEN 1,000 MG/100 ML BTL 400 MG IVPB (20:07)
[2023-09-30] MEDS: Ketorolac 15 MG/ML VIAL IVP (20:07)
[2023-09-30] MEDS: Magnesium Oxide 400 MG TAB PO (20:08)
[2023-09-30 20:09] LABS: Lactate 2.3 mmol/L (0.6-1.4)
[2023-09-30] MEDS: Oseltamivir 75 MG CAP PO (20:54)
--- NOTE | 2023-09-30 21:08 | W.PM.HP.N ---
Date of service: 09/30/23 Time of Service: 21:08 Assessment and Plan Assessment and plan (1) Influenza A: Status: Acute Assessment and plan: Influenza, with modest element of dehydration and mild respiratory insufficiency apparently due to flare of asthma. 1. Flu: Tamiflu 2. Asthma: updrafts 3. DM: usual basal insulin, with SS coverage 4. HTN: usual DUC, will hold diuretic ADs; requests Full Code History of Present Illness History of Present Illness Chief Complaint: nausea Narrative: 68 female with h/o asthma, up to date on flu vaccine -- reports grandchildren visiting last week, all sick with flu, she comes in with 2 days of dry cough , some SOB yesterday, and one day of nausea and vomiting. No CP, abdominal pain or diarrhea. In ER findings of note for temp 39.6, white count 7.4, +flu, negative CXR, BUN 21, Cr 1.2; VBG pH 7.33, pCO2 51; lactate 2.5 (repeat 2.3 following IVF). Patient given Tamiflu and IVF. I was asked to evaluate for admission. States no nausea at the moment, and denies SOB. 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 Meds Allergies and Home Medications Allergies Allergy/AdvReac Type Severity Reaction Status Date / Time capsaicin Allergy Severe Anaphylaxsi Unverified 08/26/23 07:58 s clarithromycin [From Biaxin] Allergy Intermediate Skin Rash Unverified 08/26/23 07:58 Penicillins Allergy Intermediate Skin Rash Unverified 08/26/23 07:58 Sulfa (Sulfonamide Allergy Intermediate Skin Rash Unverified 08/26/23 07:58 Antibiotics) nickel Allergy Mild Itching Unverified 08/26/23 07:58 Home Medications Medication Instructions Recorded Confirmed Type albuterol sulfate 2.5 mg/3 mL 1 unit inhalation QID PRN 01/11/14 09/30/23 History (0.083 %) solution for nebulization calcium carbonate 600 mg-vitamin 1 tab PO BID 01/11/14 09/30/23 History D3 10 mcg (400 unit) tablet (Calcium 600 + D(3)) esomeprazole magnesium 40 mg 40 mg PO DAILY 01/11/14 09/30/23 History capsule,delayed release (Nexium) folic acid 1 mg tablet 1 mg PO DAILY 01/11/14 09/30/23 History leflunomide 20 mg tablet (Arava) 20 mg PO DAILY 01/11/14 09/30/23 History methylprednisolone 4 mg tablet 4 mg PO DAILY 01/11/14 09/30/23 History zolpidem 10 mg tablet 10 mg PO HS 01/11/14 09/30/23 History aspirin 81 mg chewable tablet 81 mg PO DAILY 04/09/19 09/30/23 History insulin lispro 100 unit/mL See Rx Instructions .Route .COMPLEX 04/09/19 09/30/23 History subcutaneous pen (Humalog KwikPen (U-100) Insulin) multivitamin with minerals-iron 1 mg PO DAILY 04/09/19 09/30/23 History fumarate 9 mg iron/15 mL oral liquid (Multi Vitamin) ondansetron HCl 4 mg tablet 4 mg PO Q8H PRN PRN 05/10/22 09/30/23 History oxycodone 5 mg tablet 5 - 10 mg PO Q6H PRN PRN 05/10/22 09/30/23 History albuterol sulfate 90 mcg/actuation 2 puff inhalation Q4H PRN PRN #8.5 05/13/22 09/30/23 Rx aerosol inhaler (Ventolin HFA) grams atorvastatin 20 mg tablet 20 mg PO QPM 08/26/23 09/30/23 History indapamide 2.5 mg tablet 2.5 mg PO DAILY 08/27/23 09/30/23 History insulin glargine 100 unit/mL (3 32 unit subcut HS 08/27/23 09/30/23 History mL) subcutaneous pen (Lantus Solostar U-100 Insulin) lisinopril 10 mg tablet 10 mg PO DAILY 09/30/23 09/30/23 History montelukast 10 mg tablet 10 mg PO QHS 09/30/23 09/30/23 History (Singulair) Exam Narrative Exam Narrative: 205/81, 109, 39.6, 18, 94% RA. HEENT Cushingoid facies; neck supple; lungs scattered coarse wheeze; heart RRR; abdomen soft and NT; extremities trace pedal edema; neuro Ox3, lucid, moves al 4s Results Labs 09/30/23 16:58 09/30/23 16:58 Labs: Laboratory Results - last 24 hr 09/30/23 09/30/23 16:58 20:00 WBC 7.43 RBC 4.05 Hgb 12.1 Hct 37.6 MCV 93 MCH 29.9 MCHC 32.2 RDW 14.0 Plt Count 301 MPV 9.3 Immature Gran % 0.5 Neutrophils % 79.1 Lymphocytes % 9.2 Monocytes % 8.1 Eosinophils % 1.9 Basophils % 1.2 Nucleated RBC % 0.0 Absolute Neutrophils 5.88 Absolute Lymphocytes 0.68 L Absolute Monocytes 0.60 Absolute Eosinophils 0.14 Absolute Basophils 0.09 ESR 19 VBG pH 7.33 VBG pCO2 51 VBG pO2 28 VBG HCO3 26 VBG Total CO2 25 VBG O2 Saturation 45 VBG Base Excess 1 VBG Lactate 2.5 H* 2.3 H* Sodium 139 Potassium 4.0 Chloride 101 Carbon Dioxide 25.4 Anion Gap 12.6 H BUN 21 H Creatinine 1.2 H Est GFR (CKD-EPI 2020) 49.61 Glucose 245 H Calcium 9.2 Magnesium 1.6 L Total Bilirubin 0.6 AST 34 ALT 28 Alkaline Phosphatase 87 Creatine Kinase 43 Troponin I < 50 C-Reactive Protein 1.68 H NT-Pro-B Natriuret Pep 1018 H Total Protein 7.1 Albumin 3.3 L Lipase 11 L Procalcitonin < 0.1 Urine Color Yellow Urine Clarity Clear Urine pH 5.5 Ur Specific [place] 1.020 Urine Protein 30 H Urine Ketones Negative Urine Blood Negative Urine Nitrite Negative Urine Bilirubin Negative Urine Urobilinogen 0.2 Ur Leukocyte Esterase Negative Urine RBC 0-2 Urine WBC 0-2 Ur Epithelial Cells Few Urine Crystals Negative Urine Bacteria Negative Urine Mucus Negative Ur Culture Indicated? No Urine Glucose Negative COVID-19 Source NASOPHARYNX SARS-CoV-2 (PCR) Negative Influenza Type A (PCR) Positive A Influenza Type B (PCR) Negative RSV (PCR) Negative Last Vital Signs Temp 39.6 C H 09/30/23 19:36 Pulse 109 H 09/30/23 19:36 Resp 18 09/30/23 19:36 BP 205/81 H 09/30/23 19:36 Pulse Ox 94 09/30/23 19:36 Time Spent Time spent with Patient: 40-54 minutes Time was spent: preparing to see the patient(eg.review tests), obtaining and/or reviewing separately otained hiistory, ordering medications,tests, procedures, referring, communicating with other health youth care professional and indepentently interpreting results
[2023-09-30] MEDS: Zolpidem 10 MG TAB PO (23:06)
[2023-09-30] MEDS: Albuterol/Ipratropium 3 ML UPD VIAL UPD (23:06)
[2023-09-30] MEDS: oxyCODONE 5 MG TAB PO (23:06)
[2023-09-30] MEDS: Montelukast 10 MG TAB PO (23:06)
[2023-10-01] VITALS (15 sets, daily range): BP systolic 130–196; BP diastolic 64–79; PULSE 78–108; RESP 2–18; TEMP 37.2–39.3; O2SAT 90–100
[2023-10-01] MEDS: Lactated Ringers 1,000 ML 50 ML IV ×2 (01:35→21:40)
[2023-10-01] MEDS: Albuterol/Ipratropium 3 ML UPD VIAL UPD ×4 (05:09→23:54)
[2023-10-01] MEDS: oxyCODONE 5 MG TAB PO ×3 (05:09→17:19)
--- NOTE | 2023-10-01 07:12 | NUR.NOTE ---
Found pt med list/problem list. Will return to her on MS. Nursing Note:
[2023-10-01] MEDS: Normal Saline Flush 10 ML SYR IVP ×2 (07:29→20:47)
[2023-10-01] MEDS: Ondansetron 4 MG/2 ML VIAL IVP ×3 (07:29→23:48)
[2023-10-01] MEDS: Folic Acid 1 MG TAB PO (09:02)
[2023-10-01] MEDS: methylPREDNISolone 4 MG TAB PO (09:03)
[2023-10-01] MEDS: Aspirin 81 MG CHEW PO (09:03)
[2023-10-01] MEDS: Lisinopril 10 MG TAB PO (09:03)
[2023-10-01] MEDS: Esomeprazole 40 MG CAPCR PO (09:04)
[2023-10-01] MEDS: Insulin Glargine 300 UNITS/3 ML PEN 24 UNITS SC (09:17)
[2023-10-01] MEDS: Enoxaparin 40 MG/0.4 ML SYR SC (09:42)
[2023-10-01] MEDS: Oseltamivir 30 MG CAP PO ×2 (09:43→20:46)
[2023-10-01 09:57] LABS: Abs Immature Grans 0.02 10^3/uL (0.0-0.06); Absolute Basophil Count 0.07 10^3/uL (0.0-0.2); Absolute Eosinophil Count 0.08 10^3/uL (0.0-0.7); Absolute Lymphocyte Count 1.44 10^3/uL (1.2-3.4); Absolute Monocyte Count 0.89 10^3/uL (0.1-0.8); Absolute Neutrophil Count 4.37 10^3/uL (1.2-6.7); Eosinophils % 1.2; HCT 35.6 % (36.0-46.0); HGB 11.6 g/dL (11.2-15.7); Immature Grans % 0.3; MCH 30.3 pg (27.0-33.0); MCHC 32.6 % (32.0-36.0); MCV 93 fL (80-95); MPV 10.4 fL (8.0-11.0); Neutrophils % 63.5; Platelet Count 263 10^3/uL (130-400); RBC 3.83 10^6/uL (3.93-5.22); RDW-SD 47.3 fL; WBC 6.87 10^3/uL (4.4-10.8)
[2023-10-01 10:12] LABS: Anion Gap 9.9 mmol/L (3-11); BUN 15 mg/dL (7-18); CO2 27.1 mmol/L (21.0-32.0); CREATININE 1.1 mg/dL (0.55-1.02); Calcium 9.2 mg/dL (8.5-10.1); Chloride 100 mmol/L (98-107); Estimated GFR 55.07 (mL/min/1.73m2); Glucose 145 mg/dL (74-106); Magnesium 1.6 mg/dL (1.8-2.4); Potassium 4.4 mmol/L (3.5-5.1); Sodium 137 mmol/L (136-145)
[2023-10-01] MEDS: Insulin Aspart 300 UNITS/3 ML PEN SC ×2 (12:21→17:20)
--- NOTE | 2023-10-01 13:52 | PGE_ITS ---
Date of Service Date of service: 10/01/23 Time of Service: 13:53 Assessment and Plan Assessment and plan (1) Influenza A: Status: Acute Assessment and plan: Influenza, with modest element of dehydration and mild respiratory insufficiency Continue Tamiflu Nebs for Asthma exacerbation per RT consult Continues to have fever - continue acetaminophen BC pending Enoxaparin for DVT prophalaxis (2) Diabetes mellitus: Status: Chronic Assessment and plan: Continue usual basal insulin, with SS coverage Glucose 145-[address] Hester Qualifiers: Diabetes mellitus type: type 2 Diabetes mellitus roasterman insulin use: with care home use Diabetes mellitus complication status: with other specified complication Qualified Code(s): E11.69 - Type 2 diabetes mellitus with other specified complication; Z79.4 - intermediate (current) use of insulin Subjective Subjective Patient reports: no new complaints, tolerating a regular diet and voiding w/o difficulty; denies diarrhea, nausea, vomiting or shortness of breath Exam Narrative Exam Narrative: GENERAL APPEARANCE: Well-nourished, morbidly obese, non-toxic, awake and alert, atraumatic, no acute distress. SKIN: Warm, pale, dry, intact, without rashes/lesions/ulcerations. HEAD: Normocephalic, atraumatic, normal hair distribution for gender/age. EYES: Pupils PERRLA, EOMs intact without nystagmus, normal conjunctiva, no exudates on lids/lashes. ENT: Nares patent, no circumoral cyanosis, no facial swelling, dry mucous membranes. NECK: Supple, trachea midline, painless cervical ROM. LUNGS/CHEST: Lungs CTA bilaterally- no rhonchi/rales/wheezes diffusely, non- labored respirations, normal A/P diameter, symmetrical expansion, no chest wall deformity HEART (CV/PV): Regular rate and rhythm with murmur, no peripheral edema, no JVD. ABDOMEN: Hyperactive bowel sounds diffusely, soft, non-distended, no guarding, LLQ tenderness, RUQ palpation causes nausea. MSK: Normal ROM, no swelling/deformity to bilateral UEs or LEs, moving all extremities without weakness, no cyanosis, spine midline without tenderness, normal curvature. NEURO: Mental Status AAOx4 - alert to person, place, time, events No facial droop, no forehead involvement. Motor: No focal weakness - strength 5/5 in bilateral UEs and LEs, proximal and distal, symmetric. Sensory: sensation intact to light touch globally. Gait normal: patient ambulated without ataxia into ED room. PSYCH: euthymic, cooperative, pleasant, appropriate speech Objective Last Vital Signs Temp 39.1 C H 10/01/23 07:54 Pulse 90 10/01/23 11:27 Resp 16 10/01/23 11:27 BP 168/77 H 10/01/23 07:54 Pulse Ox 94 10/01/23 11:27 Laboratory Results - last 24 hr 09/30/23 09/30/23 10/01/23 16:58 20:00 07:10 WBC 7.43 6.87 RBC 4.05 3.83 L Hgb 12.1 11.6 Hct 37.6 35.6 L MCV 93 93 MCH 29.9 30.3 MCHC 32.2 32.6 RDW 14.0 14.0 Plt Count 301 263 MPV 9.3 10.4 Immature Gran % 0.5 0.3 Neutrophils % 79.1 63.5 Lymphocytes % 9.2 21.0 Monocytes % 8.1 13.0 Eosinophils % 1.9 1.2 Basophils % 1.2 1.0 Nucleated RBC % 0.0 0.0 Absolute Neutrophils 5.88 4.37 Absolute Lymphocytes 0.68 L 1.44 Absolute Monocytes 0.60 0.89 H Absolute Eosinophils 0.14 0.08 Absolute Basophils 0.09 0.07 ESR 19 VBG pH 7.33 VBG pCO2 51 VBG pO2 28 VBG HCO3 26 VBG Total CO2 25 VBG O2 Saturation 45 VBG Base Excess 1 VBG Lactate 2.5 H* 2.3 H* Sodium 139 137 Potassium 4.0 4.4 Chloride 101 100 Carbon Dioxide 25.4 27.1 Anion Gap 12.6 H 9.9 BUN 21 H 15 Creatinine 1.2 H 1.1 H Est GFR (CKD-EPI 2020) 49.61 55.07 Glucose 245 H 145 H Calcium 9.2 9.2 Magnesium 1.6 L 1.6 L Total Bilirubin 0.6 AST 34 ALT 28 Alkaline Phosphatase 87 Creatine Kinase 43 Troponin I < 50 C-Reactive Protein 1.68 H NT-Pro-B Natriuret Pep 1018 H Total Protein 7.1 Albumin 3.3 L Lipase 11 L Procalcitonin < 0.1 Urine Color Yellow Urine Clarity Clear Urine pH 5.5 Ur Specific [place] 1.020 Urine Protein 30 H Urine Ketones Negative Urine Blood Negative Urine Nitrite Negative Urine Bilirubin Negative Urine Urobilinogen 0.2 Ur Leukocyte Esterase Negative Urine RBC 0-2 Urine WBC 0-2 Ur Epithelial Cells Few Urine Crystals Negative Urine Bacteria Negative Urine Mucus Negative Ur Culture Indicated? No Urine Glucose Negative COVID-19 Source NASOPHARYNX SARS-CoV-2 (PCR) Negative Influenza Type A (PCR) Positive A Influenza Type B (PCR) Negative RSV (PCR) Negative Time Spent with Patient Time Spent with Patient: 35-49 minutes Time was spent: preparing to see the patient(eg.review tests), ordering medications,tests, procedures, referring, communicating with other health primary care sales representative, indepentently interpreting results, counseling the patient and care coordination
--- NOTE | 2023-10-01 16:57 | PHACLINREV_ITS ---
Pharmacy Admission Review Admission Clinical Review Admission Pharmacy Review: (Updated 09/30/23 @ 20:49 by KATHI Shi) Influenza A (Acute) capsaicin Allergy (Severe, Unverified 08/26/23 07:58) Anaphylaxsis clarithromycin [From Biaxin] Allergy (Intermediate, Unverified 08/26/23 07:58) Skin Rash Penicillins Allergy (Intermediate, Unverified 08/26/23 07:58) Skin Rash Sulfa (Sulfonamide Antibiotics) Allergy (Intermediate, Unverified 08/26/23 07:5 8) Skin Rash nickel Allergy (Mild, Unverified 08/26/23 07:58) Itching Resuscitation Status Full Code Height 5 ft 5 in Weight 99.798 kg Pharmacy Admission Review Renal Dosing Renal Dosing: BUN 15 mg/dL (7-18) 10/01/23 07:10 Creatinine 1.1 mg/dL (0.55-1.02) H 10/01/23 07:10 Medications needing adjustments: Intervened (CrCl 58.07 mL/min) List of meds needing interventions: Reached out to provider and switched Tamiflu from 75mg BID to 30mg BID due to renal function Anticoagulation Anticoagulation: Hgb 11.6 g/dL (11.2-15.7) 10/01/23 07:10 Hct 35.6 % (36.0-46.0) L 10/01/23 07:10 Plt Count 263 10^3/uL (130-400) 10/01/23 07:10 Creatinine 1.1 mg/dL (0.55-1.02) H 10/01/23 07:10 DVT Prophylaxis: Intervened (Reached out to provider who then put in an order) Medications: Enoxaparin (40mg q24h) Opiate Usage Evaluate Pain Scale/Pains Meds: Reviewed (PRN oxycodone) Scheduled Bowel Reg ordered if on Opiates?: No Relevant Labs Relevant Labs: ESR 19 mm/hr (0-30) 09/30/23 16:58 Sodium 137 mmol/L (136-145) 10/01/23 07:10 Potassium 4.4 mmol/L (3.5-5.1) 10/01/23 07:10 Chloride 100 mmol/L (98-107) 10/01/23 07:10 Magnesium 1.6 mg/dL (1.8-2.4) L 10/01/23 07:10 C-Reactive Protein 1.68 mg/dL (<or=0.5) H 09/30/23 16:58 Electrolytes, C-Reactive P, ESR: Reviewed (Mg 1.6, SCr decreased from 1.2 to 1.1) DM Control DM Control: Glucose 145 mg/dL (74-106) H 10/01/23 07:10 Finger Stick Blood Glucose 250 1221 Finger Stick Blood Glucose 250 1220 Finger Stick Blood Glucose 132 0917 DM Control: Reviewed Insulin Dosing, Diabetic Medication: Has order for Glargine and SS insulin Cardiac Review Cardiac Review: Troponin I < 50 ng/L (< or =60) 09/30/23 16:58 NT-Pro-B Natriuret Pep 1018 pg/mL (<300) H 09/30/23 16:58 BP, HR, EF%: Reviewed (BP 168/77, HR WNL) QTc Review QTc: Reviewed (475 from 09/30/23) IV to PO Switch IV Medications: Reviewed Home Meds Home Med List reviewed: Intervened Relevent Home Meds Not ordered & why?: On home med list but not ordered: Calcium and indapamide Not on home med list but recently filled: amlodipine, duloxetine and metoprolol, reached out to nursing but have not heard back yet. Lisinopril: listed as 10mg daily on home med list but most recent fill was for 40mg daily (filled 09/18/23) Montelukast: on home med list but has not filled since 12/19/22, reached out to nursing to see if patient is still taking this. Have not heard back yet. Reached out to provider about all of the above Current Meds Current Medication Order Review: Reviewed Pharmacy Antibiotic Review Relevant Labs: Relevant Labs 09/30/23 16:58 C-Reactive Protein 1.68 H Procalcitonin < 0.1
--- NOTE | 2023-10-01 18:07 | PDOC.CMIN ---
Date of service: 10/01/23 Time of Service: 18:07 Care Management Initial Assmt Initial Assessment REASON FOR HOSPITALIZATION:: FLU PREVIOUS FUNCTIONAL STATUS/SOCIAL/FAMILY SUPPORTS:: Michelle lives in [place] with her [place]. 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 Michelle has adult children however, they do not live locally. Michelle no longer drives, her provides all her transportation. Michelle shares that her mobility level fluctuates, and she sometimes uses a walker, wheelchair and has a scooter. Michelle's home is very well set up to her mobility needs. She reports that she has a ramp, shower chair and commode. ADVANCE DIRECTIVES:: None on file. Has patient been provided with info about the portal/API?: No Did the patient sign up for the portal?: No CODE STATUS:: Full Code INSURANCE COVERAGE / FINANCIAL ISSUES:: [facility]. BC/BS. Observation status, re-admission. CURRENT HOME/COMMUNITY SERVICES/EQUIPMENT:: FWW, Scooter, w/c PRIMARY CARE PHYSICIAN:: Melissa Garcia POTENTIAL DISCHARGE NEEDS:: Evaluations for further needs, follow up appointments. PATIENT/FAMILY EDUCATION NEEDS:: Review discharge instructions and limitations, discussion of self care needs including ask me three. ANTICIPATED BARRIERS TO DISCHARGE:: None identified. TRANSPORTATION:: via private vehicle by . PLAN:: Anticipate Michelle will return home once medically cleared. Her will drive her home via private vehicle. She will follow up with her PCP and discharge plan of care. CM will continue to follow. 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 SDOH(Care Management) Screening Will the Patient Participate in the Screening?: Yes Do you worry about having a steady place to live?: no Problems where you live: no known problems In the past 12 months, have you had to go without electric, gas, oil or water in your home?: no Have you or anyone in your house had to go without enough food to eat?: no Has lack of transportation kept you from medical appointments or from doing things needed for daily living?: no Has anyone in your support network made you feel unsafe for any reason?: no
--- NOTE | 2023-10-01 18:17 | TELEP.MEDREC ---
Date of service: 10/01/23 Time of Service: 18:17 Telepharmacy Home Med Rec Allergies Allergies: capsaicin Allergy (Severe, Unverified 08/26/23 07:58) Anaphylaxsis clarithromycin [From Biaxin] Allergy (Intermediate, Unverified 08/26/23 07:58) Skin Rash Penicillins Allergy (Intermediate, Unverified 08/26/23 07:58) Skin Rash Sulfa (Sulfonamide Antibiotics) Allergy (Intermediate, Unverified 08/26/23 07:58) Skin Rash nickel Allergy (Mild, Unverified 08/26/23 07:58) Itching Interview Person Interviewed: Patient Quality Quality of Interview/Accuracy of Medication List: Fair Changes made to Home Medication List: ADDITIONS: None DELETIONS: None CHANGES: Lantus: dose changed to 24 units daily Additional Notes Additional Notes: Patient reports she took some medications today but isn't sure which ones. Recommended Changes Attestation: The home medication list is now updated to the best of my knowledge and is ready to be reconciled by the provider. Please contact the TelePharmacy Medication Reconciliation Pharmacist at for any questions.
[2023-10-01] MEDS: Acetaminophen 500 MG TAB 1000 MG PO (20:46)
[2023-10-01] MEDS: Atorvastatin 20 MG TAB PO (20:47)
[2023-10-01] MEDS: Zolpidem 10 MG TAB PO (20:47)
[2023-10-01] MEDS: MAGNESIUM SULFATE 2 GM/50 ML BAG IVPB (20:47)
[2023-10-01] MEDS: Montelukast 10 MG TAB PO (20:47)
[2023-10-02] VITALS (14 sets, daily range): BP systolic 108–161; BP diastolic 68–82; PULSE 66–113; RESP 2–20; TEMP 36.3–38.7; O2SAT 91–99
[2023-10-02] MEDS: Ibuprofen 600 MG TAB PO (03:34)
[2023-10-02] MEDS: oxyCODONE 5 MG TAB PO ×3 (04:00→16:18)
[2023-10-02] MEDS: Ondansetron 4 MG/2 ML VIAL IVP (04:20)
[2023-10-02] MEDS: Acetaminophen 500 MG TAB 1000 MG PO ×4 (05:10→20:35)
[2023-10-02] MEDS: Albuterol/Ipratropium 3 ML UPD VIAL UPD ×4 (05:45→23:47)
[2023-10-02 07:21] LABS: Abs Immature Grans 0.03 10^3/uL (0.0-0.06); Absolute Basophil Count 0.11 10^3/uL (0.0-0.2); Absolute Eosinophil Count 0.01 10^3/uL (0.0-0.7); Absolute Lymphocyte Count 1.68 10^3/uL (1.2-3.4); Absolute Monocyte Count 0.85 10^3/uL (0.1-0.8); Basophils % 1.1; Eosinophils % 0.1; HCT 31.9 % (36.0-46.0); HGB 10.7 g/dL (11.2-15.7); Immature Grans % 0.3; Lymphocytes % 17.2; MCH 30.5 pg (27.0-33.0); MCHC 33.5 % (32.0-36.0); MCV 91 fL (80-95); MPV 9.4 fL (8.0-11.0); Monocytes % 8.7; Neutrophils % 72.6; Platelet Count 225 10^3/uL (130-400); RBC 3.51 10^6/uL (3.93-5.22); RDW-SD 46.5 fL; WBC 9.78 10^3/uL (4.4-10.8)
[2023-10-02 07:28] LABS: Anion Gap 10.8 mmol/L (3-11); BUN 13 mg/dL (7-18); C-Reactive Protein 8.25 mg/dL (<or=0.5); CO2 26.2 mmol/L (21.0-32.0); CREATININE 1.2 mg/dL (0.55-1.02); Calcium 8.4 mg/dL (8.5-10.1); Chloride 100 mmol/L (98-107); Estimated GFR 49.61 (mL/min/1.73m2); Glucose 129 mg/dL (74-106); Magnesium 1.7 mg/dL (1.8-2.4); Potassium 3.4 mmol/L (3.5-5.1); Sodium 137 mmol/L (136-145)
[2023-10-02] MEDS: Folic Acid 1 MG TAB PO (08:06)
[2023-10-02] MEDS: methylPREDNISolone 4 MG TAB PO (08:06)
[2023-10-02] MEDS: Esomeprazole 40 MG CAPCR PO (08:06)
[2023-10-02] MEDS: Aspirin 81 MG CHEW PO (08:07)
[2023-10-02] MEDS: Oseltamivir 30 MG CAP PO ×2 (08:07→20:35)
[2023-10-02] MEDS: Lisinopril 10 MG TAB 40 MG PO (08:07)
[2023-10-02] MEDS: Insulin Glargine 300 UNITS/3 ML PEN 24 UNITS SC (08:11)
[2023-10-02] MEDS: Lactated Ringers 1,000 ML 125 ML IV (08:16)
[2023-10-02 09:01] LABS: Lab Add On Test DONE
[2023-10-02] MEDS: MAGNESIUM SULFATE 2 GM/50 ML BAG IVPB (09:16)
[2023-10-02] MEDS: Potassium Chloride 20 MEQ TABCR 40 MEQ PO (09:20)
[2023-10-02] MEDS: Enoxaparin 40 MG/0.4 ML SYR SC (10:09)
[2023-10-02 10:39] LABS: Procalcitonin 0.1 ng/mL
[2023-10-02] MEDS: Insulin Aspart 300 UNITS/3 ML PEN SC ×3 (12:37→21:47)
--- NOTE | 2023-10-02 12:39 | PDOC.CMPRO ---
Date of service: 10/02/23 Time of Service: 12:39 Care Management Progress Note Progress Note Text Progress Note Text: S/O: Michelle was lying in bed when CM met with her. She was hunched over on her side; CM asked if she needed assistance to move into a more comfortable position, but she stated that due to her chronic pain, she can't lie flat well, so she was comfortable, despite how she appeared. She stated that her visited earlier, but returned home. She expressed how supportive he is to her, and stated that he will be in again tomorrow, and will drive her home when ready. Michelle stated that she did not expect to require services once medically ready to return home. She stated that she is hopeful that she will be able to return home tomorrow, if she continues to improve. CM will continue to follow. A: Michelle is a 68 year old female admitted to [facility] on 09/30/23 with the flu. P: Anticipate Michelle will return home once medically cleared. Her will drive her home via private vehicle. She will follow up with her PCP and discharge plan of care. CM will continue to follow. SDOH(Care Management) Screening Will the Patient Participate in the Screening?: Yes Do you worry about having a steady place to live?: no Problems where you live: no known problems In the past 12 months, have you had to go without electric, gas, oil or water in your home?: no Have you or anyone in your house had to go without enough food to eat?: no Has lack of transportation kept you from medical appointments or from doing things needed for daily living?: no Has anyone in your support network made you feel unsafe for any reason?: no
--- NOTE | 2023-10-02 14:55 | W.PM.PROGNOT ---
Date of Service Date of service: 10/02/23 Time of Service: 14:55 Assessment and Plan Assessment and plan (1) Influenza A: Status: Acute Assessment and plan: Influenza, with modest element of dehydration and mild respiratory insufficiency Continue Tamiflu Nebs for Asthma exacerbation per RT consult Continues to have fever - continue acetaminophen BC negative @ 24h Acetaminophen, ibuprofen Enoxaparin for DVT prophalaxis (2) Diabetes mellitus: Status: Chronic Assessment and plan: Continue usual basal insulin, with SS coverage Glucose ~ 130 Patient complained of feeling like she had UTI - urine sent, neg for infection Mag 1.7,repleted Potassium 3.[address] Hester Qualifiers: Diabetes mellitus type: type 2 Diabetes mellitus director long term care insulin use: with group home use Diabetes mellitus complication status: with other specified complication Qualified Code(s): E11.69 - Type 2 diabetes mellitus with other specified complication; Z79.4 - documentation engineer (current) use of insulin Exam Narrative Exam Narrative: GENERAL APPEARANCE: Well-nourished, morbidly obese, non-toxic, awake and alert, atraumatic, no acute distress. SKIN: Warm, pale, dry, intact, without rashes/lesions/ulcerations. HEAD: Normocephalic, atraumatic, normal hair distribution for gender/age. EYES: Pupils PERRLA, EOMs intact without nystagmus, normal conjunctiva, no exudates on lids/lashes. ENT: Nares patent, no circumoral cyanosis, no facial swelling, dry mucous membranes. NECK: Supple, trachea midline, painless cervical ROM. LUNGS/CHEST: Lungs CTA bilaterally- no rhonchi/rales/wheezes diffusely, non-labored respirations, normal A/P diameter, symmetrical expansion, no chest wall deformity HEART (CV/PV): Regular rate and rhythm with murmur, no peripheral edema, no JVD. ABDOMEN: Hyperactive bowel sounds diffusely, soft, non-distended, no guarding, LLQ tenderness, RUQ palpation causes nausea. MSK: Normal ROM, no swelling/deformity to bilateral UEs or LEs, moving all extremities without weakness, no cyanosis, spine midline without tenderness, normal curvature. NEURO: Mental Status AAOx4 - alert to person, place, time, events, No facial droop, no forehead involvement. Motor: No focal weakness - strength 5/5 in bilateral UEs and LEs, proximal and distal, symmetric. Sensory: sensation intact to light touch globally. PSYCH: euthymic, cooperative, pleasant, appropriate speech Objective Last Vital Signs Temp 36.3 C L 10/02/23 08:54 Pulse 74 10/02/23 11:45 Resp 16 10/02/23 11:40 BP 148/73 H 10/02/23 08:54 Pulse Ox 93 10/02/23 11:40 Laboratory Results - last 24 hr 10/02/23 10/02/23 10/02/23 07:15 09:01 09:50 WBC 9.78 RBC 3.51 L Hgb 10.7 L Hct 31.9 L MCV 91 MCH 30.5 MCHC 33.5 RDW 14.0 Plt Count 225 MPV 9.4 Immature Gran % 0.3 Neutrophils % 72.6 Lymphocytes % 17.2 Monocytes % 8.7 Eosinophils % 0.1 Basophils % 1.1 Nucleated RBC % 0.0 Absolute Neutrophils 7.10 H Absolute Lymphocytes 1.68 Absolute Monocytes 0.85 H Absolute Eosinophils 0.01 Absolute Basophils 0.11 Sodium 137 Potassium 3.4 L D Chloride 100 Carbon Dioxide 26.2 Anion Gap 10.8 BUN 13 Creatinine 1.2 H Est GFR (CKD-EPI 2020) 49.61 Glucose 129 H Calcium 8.4 L Magnesium 1.7 L C-Reactive Protein 8.25 H Procalcitonin 0.1 Add-On Test Request DONE Time Spent with Patient Time Spent with Patient: 35-49 minutes Time was spent: preparing to see the patient(eg.review tests), ordering medications,tests, procedures, referring, communicating with other health home care music therapist, indepentently interpreting results, counseling the patient and care coordination
[2023-10-02 16:51] LABS: Bilirubin Negative (Negative); Blood Trace-intact (Negative); Clarity Clear (Clear); Glucose Negative (Negative); Ketones Negative (Negative); Leukocyte Esterase Negative (Negative); Nitrite Negative (Negative); Urobilinogen 0.2 mg/dL (Up to 0.2); pH 5.5 (5-8)
[2023-10-02 16:58] LABS: Bacteria Negative HPF (Negative); C & S Indicated? No; Casts Negative LPF (Negative); Crystals Negative HPF (Negative); Epithelial Cells Rare HPF (Negative); Mucus Trace (Negative); RBC 0-2 HPF (0-2); WBC Negative HPF (0-5)
[2023-10-02] MEDS: Zolpidem 10 MG TAB PO (20:35)
[2023-10-02] MEDS: Montelukast 10 MG TAB PO (20:36)
[2023-10-02] MEDS: Atorvastatin 20 MG TAB PO (20:36)
[2023-10-03] MEDS: oxyCODONE 5 MG TAB PO ×2 (00:07→06:21)
[2023-10-03 03:16] VITALS: BP 171/81; PULSE 94; RESP 18; TEMP 37; O2SAT 94
[2023-10-03] MEDS: Ibuprofen 600 MG TAB PO (03:45)
[2023-10-03] MEDS: Acetaminophen 500 MG TAB 1000 MG PO ×2 (03:45→10:35)
[2023-10-03 05:34] VITALS: PULSE 86; RESP 16; RESP 2; RESP 7; RESP 9; O2SAT 97
[2023-10-03] MEDS: Albuterol/Ipratropium 3 ML UPD VIAL UPD (05:34)
[2023-10-03 05:39] VITALS: PULSE 86; RESP 16; RESP 2; RESP 7; RESP 9; O2SAT 97
[2023-10-03 07:57] VITALS: BP 138/75; PULSE 89; RESP 18; O2SAT 93
[2023-10-03] MEDS: Aspirin 81 MG CHEW PO (08:01)
[2023-10-03] MEDS: Esomeprazole 40 MG CAPCR PO (08:01)
[2023-10-03] MEDS: Oseltamivir 30 MG CAP PO (08:02)
[2023-10-03] MEDS: methylPREDNISolone 4 MG TAB PO (08:02)
[2023-10-03] MEDS: Folic Acid 1 MG TAB PO (08:03)
[2023-10-03] MEDS: Insulin Glargine 300 UNITS/3 ML PEN 24 UNITS SC (08:07)
[2023-10-03 08:08] LABS: Abs Immature Grans 0.01 10^3/uL (0.0-0.06); Absolute Basophil Count 0.05 10^3/uL (0.0-0.2); Absolute Eosinophil Count 0.12 10^3/uL (0.0-0.7); Absolute Lymphocyte Count 1.36 10^3/uL (1.2-3.4); Absolute Monocyte Count 0.41 10^3/uL (0.1-0.8); Absolute Neutrophil Count 2.83 10^3/uL (1.2-6.7); Eosinophils % 2.5; HCT 29.6 % (36.0-46.0); HGB 9.8 g/dL (11.2-15.7); Immature Grans % 0.2; Lymphocytes % 28.5; MCHC 33.1 % (32.0-36.0); MCV 91 fL (80-95); MPV 9.3 fL (8.0-11.0); Monocytes % 8.6; Neutrophils % 59.2; Platelet Count 232 10^3/uL (130-400); RBC 3.27 10^6/uL (3.93-5.22); RDW 13.8 % (11.7-14.6); RDW-SD 46.1 fL; WBC 4.78 10^3/uL (4.4-10.8)
[2023-10-03] MEDS: Normal Saline Flush 10 ML SYR IVP ×2 (08:08→10:43)
[2023-10-03] MEDS: Lisinopril 10 MG TAB 40 MG PO (08:43)
[2023-10-03 08:47] LABS: BUN 10 mg/dL (7-18); Calcium 8.9 mg/dL (8.5-10.1); Chloride 101 mmol/L (98-107); Estimated GFR 61.75 (mL/min/1.73m2); Glucose 112 mg/dL (74-106); Magnesium 2.1 mg/dL (1.8-2.4); Potassium 4.2 mmol/L (3.5-5.1); Sodium 139 mmol/L (136-145)
--- NOTE | 2023-10-03 09:13 | PDOC.CMDIS ---
Date of service: 10/03/23 Time of Service: 09:13 LACE Index Scoring Tool Questions: Length of Stay (in days): 3 Was the patient admitted via the E.D.?: Yes Comorbidities: Diabetes w/o Complication E.D. Visits: 2 Answers: Total Score: 9 Risk of Readmission: Low Risk Care Management Discharge Plan Reason for Hospitalization: FLU Discharge Plan: Michelle will return home today with no new services. Her will drive her home via private vehicle. She will follow up with her PCP and discharge plan of care. She is happy to be going home. Patient/Family Education Needs: Review discharge instructions and limitations, discussion of self care needs including ask me three. SDOH Health Related Social Needs: No Data to Display
[2023-10-03] MEDS: Enoxaparin 40 MG/0.4 ML SYR SC (10:35)
[2023-10-03] MEDS: HYDROmorphone 2 MG TAB PO (10:36)
[2023-10-03 10:40] LABS: Lab Add On Test DONE
[2023-10-03 10:49] LABS: C-Reactive Protein 8.29 mg/dL (<or=0.5)
--- NOTE | 2023-10-03 10:52 | W.PM.DS.N ---
Date of service: 10/03/23 Time of Service: 10:53 DS: Diagnosis Discharge Diagnosis (1) Influenza A: Status: Acute (2) Diabetes mellitus: Status: Chronic Discharge Plan Disposition Patient Disposition: Home Condition: Improving Discharge Details Reason For Visit: Flu Admit Date/Time: 09/30/23 21:19 Admit Provider: Aydin Guardado Attending Provider: Aydin Guardado Primary Care Provider: Melissa Garcia Hospital Course Hospital Course: This is a 68 year old female patient with past medical history of asthma, diabetes, and high blood pressure, up to date on flu vaccine who presented to the [facility] ED on 09/30/23 for evaluation of 2 days of dry cough , some SOB, and one day of nausea and vomiting. Patient reported grandchildren visted her last week and they had the flu. No CP, abdominal pain or diarrhea. In ED findings of note for temp 39.6, white count 7.4, +flu, negative CXR, BUN 21, Cr 1.2; VBG pH 7.33, pCO2 51; lactate 2.5 (repeat 2.3 following IVF). Patient was given Tamiflu and IVF in the ED. Patient was admitted to the medical floor for further treatment and testing. Patient continued to have fever and overall feeling unwell. She slowly improved and was ready to go home today. Patient has 2 more days of Tamiflu and prednisone. Patient's vital signs are stable and she is afebrile. here to take her home. She was asked to hydrate and rest, tylenol for fever. Home Meds and New Rx's Prescriptions: New oseltamivir 30 mg Capsule 30 mg PO BID Qty: 4 0RF prednisone 20 mg tablet 40 mg PO DAILY Qty: 5 0RF Continued albuterol sulfate 3 ML solution for nebulization 1 unit Inhalation QID PRN Patient Comments: 02/10/14- pt has not used for months, per pt methylprednisolone 4 MG tablet 4 mg PO DAILY leflunomide [Arava] 20 MG tablet 20 mg PO DAILY esomeprazole magnesium [Nexium] 40 MG capsule,delayed release(DR/EC) 40 mg PO DAILY zolpidem 10 MG tablet 10 mg PO HS ondansetron HCl 4 mg tablet 4 mg PO Q8H PRN PRN oxycodone 5 mg tablet 5 - 10 mg PO Q8H PRN albuterol sulfate [Ventolin HFA] 90 mcg/actuation Hfa Aerosol Inhaler 2 puff inhalation Q4H PRN PRNQty: 8.5 0RF montelukast [Singulair] 10 mg tablet 10 mg PO QHS lisinopril 10 mg tablet 10 mg PO DAILY calcium citrate 200 mg (950 mg) tablet 200 mg PO DAILY Patient Comments: TAKE ONE TABLET BY MOUTH ONCE DAILY folic acid 800 mcg tablet 0.8 mg PO DAILY Patient Comments: TAKE ONE TABLET BY MOUTH EVERY DAY IN THE MORNING. aspirin 81 mg Tablet,Chewable 81 mg PO DAILY Multi Vitamin 9 mg iron/15 mL Liquid 1 mg PO DAILY insulin lispro [Humalog KwikPen Insulin] 100 unit/mL Insulin Pen See Rx Instructions .ROUTE .COMPLEX Rx Instructions: Original sig- 10 units+SS sc tid with meals. Pt often skips breakfast and lunch dosing due to BG in range, normally injects 14 units sc with evening meal atorvastatin 20 mg tablet 20 mg PO QPM Patient Comments: TAKE 1 TABLET BY MOUTH EVERY NIGHT AT BEDTIME insulin glargine [Lantus Solostar U-100 Insulin] 100 unit/mL (3 mL) insulin pen 24 unit SUBCUT QAM indapamide 2.5 mg tablet 2.5 mg PO DAILY Patient Comments: TAKE ONE TABLET BY MOUTH ONCE DAILY Discharge Instructions Instructions: Prednisone (By mouth), Oseltamivir (By mouth), Influenza (DC) Additional Instructions: Continue Tamiflu (Oseltamivir) for 2 days and prednisone for 2 days follow up with your PCP. Stand Alone Forms: Nursing Discharge Form Referrals: Melissa Garcia [Primary Care Provider] - 10/10/23 1:30 pm (please arrive at 1:15PM) Activity:: Activity as Tolerated Equipment/Supplies:: No Equipment Needed Diet:: As Tolerated Discharge Orders Discharge Orders: Discharge Order (Routine); Ordered 10/03/23 Ordered By: Irena Durán Discharge Data Discharge Date/Time-TO BE ENTERED AT DEPARTURE: 10/03/23 12:14 DS: Summary Time Spent with Patient providing and/or coordinating discharge services: Greater than 30 minutes Status at Discharge Functional status at discharge: independent ambulation Overall status at discharge: patient is progressing back to baseline Mental Status: mental status grossly normal Speech and Movement: speech and movement normal Mood: congruent mood Affect: normal affect Quality:SDOH Health Related Social Needs: No Data to Display Exam Narrative Exam Narrative: GENERAL APPEARANCE: Well-nourished, morbidly obese, non-toxic, awake and alert, atraumatic, no acute distress. SKIN: Warm, pale, dry, intact, without rashes/lesions/ulcerations. HEAD: Normocephalic, atraumatic, normal hair distribution for gender/age. EYES: Pupils PERRLA, EOMs intact without nystagmus, normal conjunctiva, no exudates on lids/lashes. ENT: Nares patent, no circumoral cyanosis, no facial swelling, dry mucous membranes. NECK: Supple, trachea midline, painless cervical ROM. LUNGS/CHEST: Lungs CTA bilaterally- no rhonchi/rales/wheezes diffusely, non-labored respirations, normal A/P diameter, symmetrical expansion, no chest wall deformity HEART (CV/PV): Regular rate and rhythm with murmur 1/6 systolic murmur best heard at LSB, no peripheral edema, no JVD. ABDOMEN: Hyperactive bowel sounds diffuesly, soft, non-distended, no guarding, LLQ tenderness, RUQ palpation causes nausea. MSK: Normal ROM, no swelling/deformity to bilateral UEs or LEs, moving all extremities without weakness, no cyanosis, spine midline without tenderness, normal curvature. NEURO: Mental Status AAOx4 - alert to person, place, time, events No facial droop, no forehead involvement. Motor: No focal weakness - strength 5/5 in bilateral UEs and LEs, proximal and distal, symmetric. Sensory: sensation intact to light touch globally. Gait normal: patient ambulated without ataxia into ED room. PSYCH: euthymic, cooperative, pleasant, appropriate speech Psych Mental Status: mental status grossly normal Speech and Movement: speech and movement normal Mood: congruent mood Affect: normal affect DS: Data Vitals/I&O Vitals and I&O: Vital Signs Temperature 37.0 C 10/03/23 03:16 Temperature Source Tympanic 10/03/23 03:16 Pulse 89 10/03/23 07:57 Pulse Rhythm Regular 10/03/23 08:44 Respiratory Rate 18 10/03/23 07:57 Respiratory Effort Normal, Non-Labored 10/03/23 08:44 Respiratory Depth Normal 10/03/23 08:44 Respiratory Pattern Normal 10/03/23 08:44 Blood Pressure 138/75 10/03/23 07:57 Blood Pressure Mean 95 09/30/23 21:47 Blood Pressure Position Sitting 09/30/23 16:32 Pulse Oximetry 93 10/03/23 07:57 Oxygen Delivery Method Room Air 10/03/23 07:57 Oxygen Flow Rate 0 10/03/23 07:57 Pain Level 6 10/03/23 10:36 Comment Pt reports 05/04 pain, PRN ibuprofen and scheduled acetaminophen administered per 10/03/23 03:16 Intake & Output 10/02/23 10/02/23 10/03/23 11:59 23:59 11:59 Intake Total 1000.000 / 2000.000 1000 / 2000.000 Output Total 400 / 400 1650 / 1650 Balance 1000.000 / 1600.000 600 / 1600.000 -1640 / -1640 Intake: IV 1000.000 / 2000.000 1000 / 2000.000 Output: Urine 400 / 400 1650 / 1650 Other: Urine Color Yellow Straw Urine Appearance Clear Clear Urine Odor Strong Voiding Methods Bedside Commode Bedside Commode Diaper Incontinent Data Completed and Pending Labs on day of discharge: Labs from last 24 hours 10/03/23 10/02/23 07:35 16:23 WBC 4.78 RBC 3.27 L Hgb 9.8 L Hct 29.6 L MCV 91 MCH 30.0 MCHC 33.1 RDW 13.8 Plt Count 232 MPV 9.3 Immature Gran % 0.2 Neutrophils % 59.2 Lymphocytes % 28.5 Monocytes % 8.6 Eosinophils % 2.5 Basophils % 1.0 Nucleated RBC % 0.0 Absolute Neutrophils 2.83 Absolute Lymphocytes 1.36 Absolute Monocytes 0.41 Absolute Eosinophils 0.12 Absolute Basophils 0.05 Sodium 139 Potassium 4.2 Chloride 101 Carbon Dioxide 27.0 Anion Gap 11.0 BUN 10 Creatinine 1.0 Est GFR (CKD-EPI 2020) 61.75 Glucose 112 H Calcium 8.9 Magnesium 2.1 C-Reactive Protein Pending Urine Color Yellow Urine Clarity Clear Urine pH 5.5 Ur Specific [place] 1.010 Urine Protein 30 H Urine Ketones Negative Urine Blood Trace-intact H Urine Nitrite Negative Urine Bilirubin Negative Urine Urobilinogen 0.2 Ur Leukocyte Esterase Negative Urine RBC 0-2 Urine WBC Negative Ur Epithelial Cells Rare Urine Crystals Negative Urine Bacteria Negative Urine Casts Negative Urine Mucus Trace Ur Culture Indicated? No Urine Glucose Negative Add-On Test Request DONE Preliminary micro results at discharge 09/30/23 20:26 Blood Culture - Preliminary Blood NO GROWTH 48 HOURS PFSH All Active Problems Influenza A (Acute) Diabetes mellitus (Chronic) Psoriatic arthritis (Acute) Renal insufficiency (Chronic) Polypharmacy (Acute) Bacteremia (Acute) Pneumonia (Acute) COVID (Acute) Cellulitis and abscess of foot (Acute) Contusion of right foot (Acute) Sepsis (Acute) Bone infection of left foot (Acute) Status post total left knee replacement (Acute) Pain (Acute) Lower extremity pain (Acute) Medical History Elevated troponin Severe sepsis Acute UTI Chronic pain Edema, peripheral Bacteremia due to group B Streptococcus Surgical History 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 Time Spent with Patient Time Spent with Patient: 45-69 minutes Time was spent: preparing to see the patient(eg.review tests), ordering medications,tests, procedures, referring, communicating with other health daycare teacher, indepentently interpreting results, counseling the patient and care coordination
== END 2023-10-03 12:14 | disposition home or self-care (01) ==
LOC: ER 21:36 → MS 22:32
PROVIDERS: Internal Medicine; Nurse Practitioner Family; Admitting Provider General Practice; Emergency Provider Physician Assistant; PCP Family Medicine; Visit Provider General Practice
DX: J10.1 Influenza due to other identified influenza virus with other respiratory manifestations (principal); J45.901 Unspecified asthma with (acute) exacerbation; I12.9 Hypertensive chronic kidney disease with stage 1 through stage 4 chronic kidney disease, or unspecified chronic kidney disease; E86.0 Dehydration; N18.9 Chronic kidney disease, unspecified; Z96.652 Presence of left artificial knee joint; L40.50 Arthropathic psoriasis, unspecified; Z79.899 Other long term (current) drug therapy; E11.22 Type 2 diabetes mellitus with diabetic chronic kidney disease; Z79.4 Long term (current) use of insulin; R06.89 Other abnormalities of breathing; E66.01 Morbid (severe) obesity due to excess calories; Z68.36 Body mass index [BMI] 36.0-36.9, adult
CPT/HCPCS: 00123; 36415; 80048; 80053; 82550; 82805; 83690; 84145; 85652; 87040; 87637; 93005; 96361; 96365; 96366; 96372; 96375; 99285; J1650; 71046; 74177; 81003; 81015; 83605; 83735; 83880; 84484; 85025; 86140; 93010; 94640; 94760; 99222; 99232; 99239; G0378; J0131; J1815; J1885; J2405; J3475; J3490; J7509; J7620

== ENCOUNTER → 2023-10-10 14:17 | Outpatient (CLI) | payer MEDICARE, BC, SELFPAY ==
--- NOTE | 2023-10-10 15:00 | DI.RAD_ITS ---
Exam(s) XR CHEST 2V PA LATERAL EXAM: XR CHEST 2V PA LATERAL CLINICAL HISTORY: RICHARD R06.09 TECHNIQUE: 2D digital imaging was performed. COMPARISON: CR XR CHEST 2V PA LATERAL from 09/30/2023 FINDINGS: HEART: Normal size. Mitral annular calcifications. Aorta: Not dilated. PULMONARY VASCULATURE: Normal. LUNGS: Clear. PLEURAL SPACE: No pleural effusion or pneumothorax. BONE:Unremarkable for age. Soft tissues: Unremarkable. IMPRESSION: No acute abnormality. DATA REPOSITORY: RADIATION DOSE DELIVERED:
== END ==
PROVIDERS: PCP Family Medicine; Visit Provider Family Medicine
DX: R06.09 Other forms of dyspnea (principal)
CPT/HCPCS: 71046

== ENCOUNTER → 2023-12-10 02:59 | Outpatient (CLI) | payer MEDICARE, BC, SELFPAY ==
--- NOTE | 2023-12-10 | DI.CT_ITS ---
Exam(s) CT CHEST WO EXAM: CT CHEST WO CLINICAL HISTORY: CHRONIC COUGH, R05.3 TECHNIQUE: Imaging Protocol: Axial computed tomography images with coronal and sagittal reformatted images were created and reviewed CONTRAST MATERIAL: Intravenous: Omnipaque 350 Contrast volume:structured data ml. COMPARISON: CT CT CHEST WO from 06/13/2022 CR XR CHEST 2V PA LATERAL from 10/10/2023 FINDINGS: Pulmonary parenchyma: No consolidation. No dominant measurable mass. No emphysematous changes or int erstitial changes. Tracheobronchial tree: No bronchiectasis or mucous plugging. Mediastinum and [place]: No dominant adenopathy or fluid collection. Pleura: No effusion. No pneumothorax. Heart: The heart is mildly dilated. [id number] coronary artery calcifications are seen. Mitral annular calcifications and aortic valve calcifications noted. No pericardial effusion. Aorta: Thoracic aorta non-dilated. Moderate atherosclerotic changes. Upper abdomen: No acute findings.. Bones: Degenerative changes in the spine. Soft tissues: Unremarkable. IMPRESSION: No acute abnormality. RADIATION DOSE DELIVERED: 685.8mGy.cm Total DLP DATA REPOSITORY: All CT scans at this facility are submitted to the National Radiology Data Registry (NRDR) Dose Index Registry (DIR) with the [employer] (A[employer]). RADIATION OPTIMIZATION: All CT scans at this facility use at least one of these dose optimization te chniques: automated exposure control; mA and/or kV adjustment per patient size (includes targeted exa ms where dose is matched to clinical indication); or iterative reconstruction.
== END ==
PROVIDERS: PCP Family Medicine; Visit Provider Family Medicine
DX: R05.3 Chronic cough (principal)
CPT/HCPCS: 71250

== ENCOUNTER → 2023-12-31 13:46 | Outpatient (BNVA) | payer MEDICARE, BC, SELFPAY | PROVIDERS: PCP Family Medicine; Referring Provider Family Medicine; Visit Provider Physician Assistant Surgical | DX: R05.3 Chronic cough (principal); J45.20 Mild intermittent asthma, uncomplicated; K22.4 Dyskinesia of esophagus | CPT/HCPCS: 99215 ==

== ENCOUNTER 2024-01-03 11:31 | Outpatient (REF) | payer MEDICARE, BC, SELFPAY ==
[2024-01-03 15:56] LABS: Abs Immature Grans 0.02 10^3/uL (0.0-0.06); Absolute Basophil Count 0.07 10^3/uL (0.0-0.2); Absolute Eosinophil Count 0.28 10^3/uL (0.0-0.7); Absolute Lymphocyte Count 2.46 10^3/uL (1.2-3.4); HCT 38.5 % (36.0-46.0); HGB 12.3 g/dL (11.2-15.7); Immature Grans % 0.3 %; Lymphocytes % 35.5 %; MCH 30.1 pg (27.0-33.0); MCHC 31.9 % (32.0-36.0); MCV 94 fL (80-95); MPV 10.3 fL (8.0-11.0); Monocytes % 10.1 %; Neutrophils % 49.1 %; Platelet Count 321 10^3/uL (130-400); RBC 4.08 10^6/uL (3.93-5.22); RDW 14.9 % (11.7-14.6); RDW-SD 51.3 fL; WBC 6.93 10^3/uL (4.4-10.8)
[2024-01-03 16:01] LABS: Anion Gap 11.7 mmol/L (3-11); BUN 21 mg/dL (7-18); CO2 28.3 mmol/L (21.0-32.0); CREATININE 1.1 mg/dL (0.55-1.02); Calcium 9.7 mg/dL (8.5-10.1); Chloride 106 mmol/L (98-107); Estimated GFR 55.07 (mL/min/1.73m2); Glucose 107 mg/dL (74-106); Potassium 4.2 mmol/L (3.5-5.1); Sodium 146 mmol/L (136-145)
== END 2024-01-03 11:32 | disposition home or self-care (01) ==
LOC: LBN 11:31
PROVIDERS: PCP Family Medicine; Visit Provider Physician Assistant Medical
DX: R35.0 Frequency of micturition (principal)
CPT/HCPCS: 80048; 85025; 87086

== ENCOUNTER 2024-01-20 13:50 | Emergency (ER) | payer MEDICARE, BC, SELFPAY ==
[2024-01-20 13:52] VITALS: BP 212/83; PULSE 91; RESP 18; TEMP 36.4; O2SAT 96
--- NOTE | 2024-01-20 14:00 | W.ED.GENAD ---
Discharge Plan Disposition Patient Disposition: Home Discharge Details Clinical Impression: Diarrhea Primary Care Provider: Melissa Garcia ED Provider: Jorge Raya Home Meds and New Rx's Prescriptions: New ondansetron 4 mg tablet,disintegrating 4 mg PO BID 5 Days Qty: 10 0RF loperamide [Imodium A-D] 2 mg capsule 2 mg PO Q6H PRNQty: 7 0RF Continued amlodipine 5 mg tablet 5 mg PO DAILY cholecalciferol (vitamin D3) 50 mcg (2,000 unit) capsule 50 mcg PO DAILY duloxetine 60 mg capsule,delayed release(DR/EC) 60 mg PO DAILY elderberry fruit See Rx Instructions PO DIRECTED Hold Instructions: on hold x1 month Rx Instructions: orally as directed; metoprolol tartrate 100 mg tablet 100 mg PO DAILY morphine 15 mg tablet extended release 15 mg PO Q12H nystatin 100,000 unit/mL suspension See Rx Instructions PO DIRECTED Rx Instructions: orally as directed; swish and swallow acetaminophen [Tylenol Arthritis Pain] 650 mg tablet extended release See Rx Instructions PO TID PRN Rx Instructions: orally three times a day PRN; albuterol sulfate 3 ML solution for nebulization 1 unit Inhalation QID PRN Patient Comments: 02/10/14- pt has not used for months, per pt methylprednisolone 4 MG tablet 4 mg PO DAILY leflunomide [Arava] 20 MG tablet 20 mg PO DAILY esomeprazole magnesium [Nexium] 40 MG capsule,delayed release(DR/EC) 40 mg PO DAILY zolpidem 10 MG tablet 10 mg PO HS ondansetron HCl 4 mg tablet 4 mg PO Q8H PRN PRN albuterol sulfate [Ventolin HFA] 90 mcg/actuation Hfa Aerosol Inhaler 2 puff inhalation Q4H PRN PRNQty: 8.5 0RF montelukast [Singulair] 10 mg tablet 10 mg PO QHS lisinopril 10 mg tablet 10 mg PO DAILY calcium citrate 200 mg (950 mg) tablet 200 mg PO DAILY Patient Comments: TAKE ONE TABLET BY MOUTH ONCE DAILY folic acid 800 mcg tablet 0.8 mg PO DAILY Patient Comments: TAKE ONE TABLET BY MOUTH EVERY DAY IN THE MORNING. aspirin 81 mg Tablet,Chewable 81 mg PO DAILY Multi Vitamin 9 mg iron/15 mL Liquid 1 mg PO DAILY insulin lispro [Humalog KwikPen Insulin] 100 unit/mL Insulin Pen See Rx Instructions .ROUTE .COMPLEX Rx Instructions: Original sig- 10 units+SS sc tid with meals. Pt often skips breakfast and lunch dosing due to BG in range, normally injects 14 units sc with evening meal atorvastatin 20 mg tablet 20 mg PO QPM Patient Comments: TAKE 1 TABLET BY MOUTH EVERY NIGHT AT BEDTIME insulin glargine [Lantus Solostar U-100 Insulin] 100 unit/mL (3 mL) insulin pen 24 unit SUBCUT QAM indapamide 2.5 mg tablet 2.5 mg PO DAILY Patient Comments: TAKE ONE TABLET BY MOUTH ONCE DAILY Discharge Instructions Instructions: Acute Diarrhea (ED) Additional Instructions: You were seen in the emergency department for your diarrhea. Your blood work shows that your kidneys are working well. As we discussed, please return to the emergency department if you develop fevers or any abdominal pain. Otherwise please follow-up with your primary care provider as needed later this week. Discharge Data Discharge Date/Time-TO BE ENTERED AT DEPARTURE: 01/20/24 16:09 HPI General Date/Time Provider Initiated Documentation: 01/20/24 14:00. HPI Narrative: MDM This is an overall very well-appearing afebrile and not tachycardic 68-year-old female with crampy abdominal pain and diarrhea with reassuring exam for which patient will receive Imodium, assessment of her electrolytes, IV fluids and observation in the emergency department. No pain or proportion to suggest necrotizing soft tissue infection. No left lower quadrant tenderness nor fevers to suggest diverticulitis. No pulsatile masses nor syncope so doubt ruptured AAA. No black nor bloody stools so doubt GI bleeds. No right lower quadrant tenderness nor fevers to suggest appendicitis. Patient does have an elevated BMI so we will obtain a lipase to assess for pancreatitis though patient is not an alcoholic. Patient has had surgeries in the past to her abdomen however has not been vomiting and given her soft nontender abdomen and diarrhea my suspicion is low for small bowel obstruction so I do not feel she needs an US nor a CT. No history of recent travel to suggest atypical infection. Patient is a diabetic however is not immunocompromised so my suspicion for opportunistic infection is low. No dysuria nor frequency so doubt UTI. No flank pain nor tenderness and no history of ureterolithiasis so my suspicion for ureterolithiasis is low. No dysuria nor frequency so doubt UTI. No recent antibiotic use so my suspicion is low for C. difficile in the absence of fevers. I considered COVID however in the absence of cough and fevers I did not swab for COVID. 2:55 PM CBC lacks anemia thrombocytopenia and leukocytosis. I met with the patient and she was still having no vomiting. No recurrent diarrhea. 3:45 PM Comprehensive metabolic panel showing very mild hyperglycemia but no anion gap and normal bicarbonate??not consistent with DKA. No CASH. No acute LFT abnormalities. Normal reassuring lipase. I met with the patient again. She had had no vomiting and no diarrhea in the emergency department. She felt improved. I advised her that if she developed any worsening abdominal pain vomiting or fevers that she should return to the emergency department. She understood her return indications and was discharged with empiric trial of expectant outpatient management. Her blood pressure was elevated in the ED. I encouraged her to follow-up with her primary care provider. Chronic conditions affecting the care of the patient: Elevated BMI and diabetes History obtained from an outside historian: Patient's External record review: N/A Medications: Acetaminophen Imodium, IV fluids Social determinants of health affecting disposition: N/A Management discussed with: N/A Treatment/interventions considered: UA but deferred given no dysuria nor frequency Response to therapies provided: Improved symptoms in the ED HPI This is a 68-year-old female arriving to the emergency department via private vehicle in the setting of diarrhea. Patient is concerned that yesterday evening at a [employer] she consumed some raw chicken. She had attended multiple [employer] over the holiday weekend. She felt unwell overnight. This morning at 8 AM she had a regular bowel movement. Subsequently she had a second bowel movement which was loose. Her third bowel movement was diarrhea. She came to the emergency department as she has had multiple episodes of diarrhea over the course of the day. She has required hospitalization in the past for similar item and she did not want to wait until her symptoms worsened. No recent antibiotic use. No vomiting. Some nausea and some cramping generalized abdominal pain. Remote history of hysterectomy appendectomy and cholecystectomy. No recent falls. Denies fevers dysuria shortness of breath chest pain and vomiting. Patient denies routine tobacco and ethanol. She occasionally uses edible THC. He has never had diverticulitis. No history of ureterolithiasis. Denies black or bloody stools. Exam General: Well-appearing in no acute distress speaking in complete sentences. Head: Normocephalic, atraumatic. Eye: Extraocular eye movements intact. No conjunctival injection. No scleral icterus. Ear, nose, mouth, throat: Grossly normal inspection. Normal voice, handling secretions normally. Neck: Trachea midline. Cardiovascular: Well-perfused distal extremities. Regular rate and rhythm Respiratory: Nonlabored respiration. Clear lungs bilaterally Gastrointestinal: Nondistended abdomen. Soft. Nontender. No rash to abdomen. No rebound. No guarding. No CVA tenderness bilaterally. Musculoskeletal: No edema. Moving all 4 extremities spontaneously. Skin: Normal for age and race, grossly normal temperature and turgor. No acute rash. Neurologic: Alert and appropriate, no apparent acute deficits. Psychiatric: Mood and manner are appropriate. Grooming and personal hygiene are appropriate. Related Data Home Medications Medication Instructions Recorded Confirmed albuterol sulfate 2.5 mg/3 mL 1 unit inhalation QID PRN 01/11/14 01/20/24 (0.083 %) solution for nebulization esomeprazole magnesium 40 mg 40 mg PO DAILY 01/11/14 01/20/24 capsule,delayed release (Nexium) leflunomide 20 mg tablet (Arava) 20 mg PO DAILY 01/11/14 01/20/24 methylprednisolone 4 mg tablet 4 mg PO DAILY 01/11/14 01/20/24 zolpidem 10 mg tablet 10 mg PO HS 01/11/14 01/20/24 aspirin 81 mg chewable tablet 81 mg PO DAILY 04/09/19 01/20/24 insulin lispro 100 unit/mL See Rx Instructions .Route .COMPLEX 04/09/19 01/20/24 subcutaneous pen (Humalog KwikPen (U-100) Insulin) multivitamin with minerals-iron 1 mg PO DAILY 04/09/19 01/20/24 fumarate 9 mg iron/15 mL oral liquid (Multi Vitamin) ondansetron HCl 4 mg tablet 4 mg PO Q8H PRN PRN 05/10/22 01/20/24 albuterol sulfate 90 mcg/actuation 2 puff inhalation Q4H PRN PRN #8.5 05/13/22 01/20/24 aerosol inhaler (Ventolin HFA) grams atorvastatin 20 mg tablet 20 mg PO QPM 08/26/23 01/20/24 indapamide 2.5 mg tablet 2.5 mg PO DAILY 08/27/23 01/20/24 insulin glargine 100 unit/mL (3 24 unit subcut QAM 08/27/23 01/20/24 mL) subcutaneous pen (Lantus Solostar U-100 Insulin) lisinopril 10 mg tablet 10 mg PO DAILY 09/30/23 01/20/24 montelukast 10 mg tablet 10 mg PO QHS 09/30/23 01/20/24 (Singulair) calcium citrate 200 mg (950 mg) 200 mg PO DAILY 10/01/23 01/20/24 tablet folic acid 800 mcg tablet 0.8 mg PO DAILY 10/01/23 01/20/24 acetaminophen 650 mg See Rx Instructions PO TID PRN 12/11/23 01/20/24 tablet,extended release (Tylenol Arthritis Pain) amlodipine 5 mg tablet 5 mg PO DAILY 12/11/23 01/20/24 cholecalciferol (vitamin D3) 50 50 mcg PO DAILY 12/11/23 01/20/24 mcg (2,000 unit) capsule duloxetine 60 mg capsule,delayed 60 mg PO DAILY 12/11/23 01/20/24 release elderberry fruit See Rx Instructions PO DIRECTED 12/11/23 01/20/24 metoprolol tartrate 100 mg tablet 100 mg PO DAILY 12/11/23 01/20/24 morphine 15 mg tablet,extended 15 mg PO Q12H 12/11/23 01/20/24 release nystatin 100,000 unit/mL oral See Rx Instructions PO DIRECTED 12/11/23 01/20/24 suspension loperamide 2 mg capsule (Imodium 2 mg PO Q6H PRN #7 caps 01/20/24 A-D) ondansetron 4 mg disintegrating 4 mg PO BID 5 days #10 tabs 01/20/24 tablet Previous Rx's Medication Instructions Recorded albuterol sulfate 90 mcg/actuation 2 puff inhalation Q4H PRN PRN #8.5 05/13/22 aerosol inhaler (Ventolin HFA) grams loperamide 2 mg capsule (Imodium 2 mg PO Q6H PRN #7 caps 01/20/24 A-D) ondansetron 4 mg disintegrating 4 mg PO BID 5 days #10 tabs 01/20/24 tablet Allergies Allergy/AdvReac Type Severity Reaction Status Date / Time capsaicin Allergy Severe Anaphylaxsi Unverified 12/31/23 14:07 s clarithromycin [From Biaxin] Allergy Intermediate Skin Rash Unverified 08/26/23 07:58 Penicillins Allergy Intermediate Skin Rash Unverified 12/31/23 14:07 Sulfa (Sulfonamide Allergy Intermediate Skin Rash Unverified 12/31/23 14:07 Antibiotics) nickel Allergy Mild Itching Unverified 12/31/23 14:07 infliximab [From Remicade] Allergy Unknown passed out Verified 12/31/23 14:07 General Stated Complaint: Nausea/Vomit/Diar ARABELLA: 3 Course Vital Signs Vital signs: Vital Signs Temperature 36.4 C L 01/20/24 13:52 Pulse 91 H 01/20/24 13:52 Respiratory Rate 18 01/20/24 13:52 Blood Pressure 212/83 H 01/20/24 13:52 Pulse Oximetry 96 01/20/24 13:52 Temperature 36.4 C L 01/20/24 13:52 Pulse 91 H 01/20/24 13:52 Respiratory Rate 18 01/20/24 13:52 Respiratory Effort Normal 01/20/24 13:56 Blood Pressure 212/83 H 01/20/24 13:52 Pulse Oximetry 96 01/20/24 13:52 Oxygen Delivery Method Room Air 01/20/24 13:52 Oxygen Flow Rate 0 01/20/24 13:52 Medical Decision Making Quality:SDOH Health Related Social Needs: No Data to Display PFSH All Active Problems (Updated 01/20/24 @ 15:54 by Jorge Raya MD) Diarrhea (Acute) GERD (gastroesophageal reflux disease) (Chronic) Diffuse spasm of esophagus (Acute) Spondylosis (Acute) Cardiomegaly (Acute) Heart murmur (Acute) Mild intermittent asthma (Acute) Pure hypercholesterolemia (Acute) Lymphedema (Acute) Peripheral venous insufficiency (Acute) Spasm of back muscles (Acute) Actinic keratosis (Acute) Aortic valve stenosis, nonrheumatic (Acute) Acute bronchitis (Acute) Fatigue (Acute) Nausea (Acute) Chronic cough (Acute) Snoring (Acute) Dyspnea on exertion (Acute) Daytime somnolence (Acute) Exacerbation of intermittent asthma (Acute) Otitis externa (Acute) Insomnia (Acute) Candidiasis of mouth (Acute) Influenza A (Acute) Diabetes mellitus (Chronic) Psoriatic arthritis (Acute) Renal insufficiency (Chronic) Polypharmacy (Acute) Bacteremia (Acute) Pneumonia (Acute) COVID (Acute) Cellulitis and abscess of foot (Acute) Contusion of right foot (Acute) Sepsis (Acute) Bone infection of left foot (Acute) Status post total left knee replacement (Acute) Pain (Acute) Lower extremity pain (Acute) Medical History (Updated 01/20/24 @ 15:54 by Jorge Raya MD) Elevated troponin Severe sepsis Acute UTI Chronic pain Edema, peripheral Bacteremia due to group B Streptococcus Surgical History (Updated 12/11/23 @ 12:06 by Brissa Ram) Hx of hysterectomy Hx of spinal surgery Hx of laminectomy 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
[2024-01-20 14:06] VITALS: BP 212/83; PULSE 91; RESP 18; TEMP 36.4; O2SAT 96
[2024-01-20] MEDS: Normal Saline 500 ML IV (14:27)
[2024-01-20] MEDS: Ondansetron 4 MG/2 ML VIAL IVP (14:28)
[2024-01-20] MEDS: ACETAMINOPHEN 1,000 MG/100 ML BTL 400 MG IVPB (14:29)
[2024-01-20] MEDS: Loperamide 2 MG CAP PO (14:36)
[2024-01-20 14:39] LABS: Abs Immature Grans 0.03 10^3/uL (0.0-0.06); Absolute Basophil Count 0.06 10^3/uL (0.0-0.2); Absolute Eosinophil Count 0.18 10^3/uL (0.0-0.7); Absolute Lymphocyte Count 1.24 10^3/uL (1.2-3.4); Absolute Monocyte Count 0.42 10^3/uL (0.1-0.8); Absolute Neutrophil Count 5.43 10^3/uL (1.2-6.7); Basophils % 0.8 %; Eosinophils % 2.4 %; HCT 38.3 % (36.0-46.0); Immature Grans % 0.4 %; Lymphocytes % 16.8 %; MCH 29.7 pg (27.0-33.0); MCHC 31.3 % (32.0-36.0); MCV 95 fL (80-95); MPV 10.8 fL (8.0-11.0); Monocytes % 5.7 %; Neutrophils % 73.9 %; Platelet Count 292 10^3/uL (130-400); RBC 4.04 10^6/uL (3.93-5.22); RDW 14.4 % (11.7-14.6); RDW-SD 49.5 fL; WBC 7.36 10^3/uL (4.4-10.8)
[2024-01-20 14:54] VITALS: BP 206/70; PULSE 80; O2SAT 96
[2024-01-20 15:07] LABS: Lipase 29 U/L (16-77)
[2024-01-20 15:36] LABS: ALT 24 U/L (14-59); AST 47 U/L (15-37); Albumin 3.5 g/dL (3.4-5.0); Alkaline Phosphatase 90 U/L (46-116); Anion Gap 9.3 mmol/L (3-11); BUN 18 mg/dL (7-18); Bilirubin, Total 0.6 mg/dL (0.2-1.0); CO2 27.7 mmol/L (21.0-32.0); CREATININE 0.9 mg/dL (0.55-1.02); Calcium 8.7 mg/dL (8.5-10.1); Chloride 106 mmol/L (98-107); Estimated GFR 70.07 (mL/min/1.73m2); Glucose 206 mg/dL (74-106); Potassium 4.8 mmol/L (3.5-5.1); Sodium 143 mmol/L (136-145); Total Protein 6.5 g/dL (6.4-8.2)
[2024-01-20 16:08] VITALS: BP 171/67; PULSE 87; O2SAT 96
== END 2024-01-20 16:09 | disposition home or self-care (01) ==
PROVIDERS: Emergency Provider Emergency Medicine; PCP Family Medicine
DX: R19.7 Diarrhea, unspecified (principal); E11.9 Type 2 diabetes mellitus without complications; Z79.82 Long term (current) use of aspirin; Z79.4 Long term (current) use of insulin
CPT/HCPCS: 36415; 80053; 83690; 96361; 96365; 96375; 99284; 85025; 99283; J0131; J2405

== ENCOUNTER 2024-01-29 05:21 | Outpatient (CLI) | payer MEDICARE, BC, SELFPAY ==
[2024-01-29] MEDS: Methacholine 100 MG VIAL IH (14:53)
[2024-01-29] MEDS: Albuterol HFA 18 GM 200 PUFF INH IH (14:54)
[2024-01-29] MEDS: Inhaler, Assist Device 1 EACH MC (14:54)
--- NOTE | 2024-01-30 08:37 | PFT_ITS ---
Date of service: 01/29/24 Time of Service: 13:05 Pulmonary Function Test Result Indications: Chronic cough Interpretation Spirometry: There is no baseline airflow limitation. There was a 6% decrease in FEV1 with a dministration of 16mg/mL methacholine. Lung Volumes: Unable to perform Diffusion Capacity: Normal diffusion Airway Pressure: Unable to perform Impression Normal pulmonary function testing with a negative methacholine challenge Clinical Correlation therefore is recommended.
== END 2024-01-29 05:22 | disposition home or self-care (01) ==
LOC: RT 05:21
PROVIDERS: PCP Family Medicine; Visit Provider Physician Assistant Surgical
DX: R05.3 Chronic cough (principal)
CPT/HCPCS: 94060; 94070; 94726; 94729; 94010; J7674

== ENCOUNTER 2024-02-16 15:03 | Outpatient (REF) | payer MEDICARE, BC, SELFPAY | END 2024-02-16 15:04 | disposition home or self-care (01) | LOC: NCHCN 15:03 | PROVIDERS: PCP Family Medicine; Visit Provider Family Medicine | DX: R35.0 Frequency of micturition (principal) | CPT/HCPCS: 87077; 87086; 87186 ==

== ENCOUNTER 2024-03-01 18:32 | Outpatient (REF) | payer MEDICARE, BC, SELFPAY | END 2024-03-01 18:33 | disposition home or self-care (01) | LOC: NCHCN 18:32 | PROVIDERS: PCP Family Medicine; Visit Provider Family Medicine | DX: N39.0 Urinary tract infection, site not specified (principal) | CPT/HCPCS: 87086 ==

== ENCOUNTER → 2024-03-02 12:50 | Outpatient (BNVA) | payer MEDICARE, BC, SELFPAY | PROVIDERS: PCP Family Medicine; Referring Provider Family Medicine; Visit Provider Internal Medicine Critical Care Medicine | DX: R05.3 Chronic cough (principal); K21.9 Gastro-esophageal reflux disease without esophagitis | CPT/HCPCS: 99214 ==

== ENCOUNTER 2024-04-16 14:44 | Outpatient (CLI) | payer MEDICARE, BC, SELFPAY ==
[2024-04-16 13:40] LABS: Abs Immature Grans 0.03 10^3/uL (0.0-0.06); Absolute Basophil Count 0.09 10^3/uL (0.0-0.2); Absolute Eosinophil Count 0.12 10^3/uL (0.0-0.7); Absolute Lymphocyte Count 1.68 10^3/uL (1.2-3.4); Absolute Monocyte Count 0.53 10^3/uL (0.1-0.8); Absolute Neutrophil Count 6.24 10^3/uL (1.2-6.7); Eosinophils % 1.4 %; HCT 39.8 % (36.0-46.0); HGB 12.7 g/dL (11.2-15.7); Immature Grans % 0.3 %; Lymphocytes % 19.3 %; MCH 29.7 pg (27.0-33.0); MCHC 31.9 % (32.0-36.0); MCV 93 fL (80-95); MPV 10.7 fL (8.0-11.0); Monocytes % 6.1 %; Neutrophils % 71.9 %; Platelet Count 296 10^3/uL (130-400); RBC 4.28 10^6/uL (3.93-5.22); RDW-SD 51.1 fL; WBC 8.69 10^3/uL (4.4-10.8)
[2024-04-16 14:32] LABS: ALT 19 U/L (14-59); AST 22 U/L (15-37); Albumin 3.3 g/dL (3.4-5.0); Alkaline Phosphatase 100 U/L (46-116); BUN 25 mg/dL (7-18); Bilirubin, Total 0.55 mg/dL (0.2-1.0); Calcium 9.1 mg/dL (8.5-10.1); Chloride 104 mmol/L (98-107); Estimated GFR 61.75 (mL/min/1.73m2); Glucose 143 mg/dL (74-106); Potassium 3.9 mmol/L (3.5-5.1); Sodium 140 mmol/L (136-145); Total Protein 6.9 g/dL (6.4-8.2); Vitamin D 25 Total 25.9 ng/mL (30-100)
== END 2024-04-16 14:45 | disposition home or self-care (01) ==
LOC: LBO 14:46
PROVIDERS: PCP Family Medicine; Referring Provider Family Medicine; Visit Provider Family Medicine
DX: L40.50 Arthropathic psoriasis, unspecified (principal); D64.9 Anemia, unspecified
CPT/HCPCS: 36415; 80053; 82306; 85025

== ENCOUNTER 2024-04-30 15:57 | Outpatient (REF) | payer MEDICARE, BC, SELFPAY ==
[2024-04-30 18:22] LABS: Bilirubin Negative (Negative); Blood Negative (Negative); Clarity Cloudy (Clear); Glucose Negative (Negative); Ketones Negative (Negative); Leukocyte Esterase Trace (Negative); Nitrite Positive (Negative); Specific Gravity >= 1.030 (1.005-1.025); Urobilinogen 0.2 mg/dL (Up to 0.2); pH 5.5 (5-8)
[2024-04-30 18:26] LABS: Bacteria Many HPF (Negative); C & S Indicated? Yes; Casts Negative LPF (Negative); Crystals Negative HPF (Negative); Epithelial Cells Few HPF (Negative); Mucus Moderate (Negative); RBC 0-2 HPF (0-2); WBC >50 HPF (0-5)
== END 2024-04-30 15:58 | disposition home or self-care (01) ==
LOC: NCHCN 15:57
PROVIDERS: PCP Family Medicine; Visit Provider Nurse Practitioner Family
DX: R30.0 Dysuria (principal); B96.1 Klebsiella pneumoniae [K. pneumoniae] as the cause of diseases classified elsewhere
CPT/HCPCS: 87077; 81003; 81015; 87086; 87186

== ENCOUNTER → 2024-08-31 13:58 | Outpatient (BNVA) | payer MEDICARE, BC, SELFPAY | PROVIDERS: PCP Family Medicine; Referring Provider Family Medicine; Visit Provider Physician Assistant Surgical | DX: R05.3 Chronic cough (principal); K21.9 Gastro-esophageal reflux disease without esophagitis | CPT/HCPCS: 99214 ==

== ENCOUNTER 2024-09-02 16:21 | Outpatient (REF) | payer MEDICARE, BC, SELFPAY ==
[2024-09-02 21:38] LABS: HCT 40.1 % (36.0-46.0); HGB 12.6 g/dL (11.2-15.7); MCH 29.7 pg (27.0-33.0); MCHC 31.4 % (32.0-36.0); MCV 95 fL (80-95); MPV 10.8 fL (8.0-11.0); Platelet Count 328 10^3/uL (130-400); RBC 4.24 10^6/uL (3.93-5.22); WBC 6.51 10^3/uL (4.4-10.8)
[2024-09-02 21:50] LABS: Anion Gap 7.2 mmol/L (3-11); BUN 24 mg/dL (7-18); CO2 29.8 mmol/L (21.0-32.0); CREATININE 1.3 mg/dL (0.55-1.02); Chloride 107 mmol/L (98-107); Estimated GFR 44.79 (mL/min/1.73m2); Glucose 122 mg/dL (74-106); Potassium 4.2 mmol/L (3.5-5.1); Sodium 144 mmol/L (136-145)
== END 2024-09-02 16:22 | disposition home or self-care (01) ==
LOC: NCHCN 16:21
PROVIDERS: PCP Family Medicine; Visit Provider Family Medicine
DX: Z01.818 Encounter for other preprocedural examination (principal)
CPT/HCPCS: 80048; 85027

== ENCOUNTER 2024-09-07 02:29 | Outpatient (CLI) | payer MEDICARE, BC, SELFPAY ==
--- NOTE | 2024-09-07 | DI.RAD_ITS ---
Exam(s) XR CHEST 2V PA LATERAL EXAM: XR CHEST 2V PA LATERAL CLINICAL HISTORY: PREOP,Z01.818,ENCOUNTER PRE PROCEDURE TECHNIQUE: 2D digital imaging was performed. Two views. COMPARISON: CT CT CHEST WO from 12/10/2023 FINDINGS: HEART: Normal size. Aorta: Not dilated. PULMONARY VASCULATURE: Normal. MEDIASTINUM: Unremarkable. LUNGS: Clear. PLEURAL SPACE: No pleural effusion or pneumothorax. BONE:Unremarkable for age. SOFT TISSUES: Unremarkable. IMPRESSION: No acute abnormality. DATA REPOSITORY: RADIATION DOSE DELIVERED:
--- NOTE | 2024-09-07 11:10 | DI.MAMMO_ITS ---
Exam(s) MG MAMMO SCREENING 60 MIN DUR EXAM: MG MAMMO SCREENING 60 MIN DUR CLINICAL HISTORY: SCREENING MAMMO Z12.39 TECHNIQUE: Mammograms were interpreted according to the usual protocol including computer analysis w [employer] CAD system, tomosynthesis and C-view imaging. COMPARISON: 2020 through 2022 FINDINGS: The breasts are composed of scattered fibroglandular densities, Breast Density category B. No suspicious masses or suspicious microcalcifications are seen. No skin thickening or abnormal axillary lymph nodes are seen. There has been no significant change from prior exams. IMPRESSION: BI-RADS Category 1, Negative mammogram Yearly screening mammography is recommended. Breast Density - Category B, scattered fibroglandular densities. A negative radiographic report should not delay biopsy if a dominant or clinically suspicious mass is present. Up to ten percent of cancers are not identified on mammography. A negative report may reinforce clinical impression. Adenosis and dense breasts may obscure an underlying neoplasm. False positive reports average 6 to 10%. Patient will receive a letter notifying them of these results.
== END 2024-09-07 02:49 ==
LOC: DI 02:29
PROVIDERS: PCP Family Medicine; Visit Provider Family Medicine
DX: Z12.31 Encounter for screening mammogram for malignant neoplasm of breast (principal); Z01.818 Encounter for other preprocedural examination
CPT/HCPCS: 77063; 77067; 71046

== ENCOUNTER 2024-10-14 13:55 | Emergency (ER) | payer MEDICARE, BC, SELFPAY ==
[2024-10-14 13:58] VITALS: BP 175/74; PULSE 71; RESP 14; TEMP 36.4; O2SAT 94
--- NOTE | 2024-10-14 15:02 | DI.RAD_ITS ---
Exam(s) XR FINGER RT MIDDLE EXAM: XR FINGER RT MIDDLE CLINICAL HISTORY: pain. TECHNIQUE: 2D digital imaging was performed. COMPARISON: No exams were available for comparison FINDINGS: 3 views No evidence of acute fracture. There is, however, an element of subluxation of the metacarpophalange al joint of the 2nd-index finger. There are no erosions at the metacarpophalangeal joint levels. There are advanced degenerative changes in the proximal interphalangeal joints, most prominent in the 3rd-middle finger where there is an element of degenerative subluxation of this articulation. Adjac ent soft tissue calcifications are noted. There is also some soft tissue swelling around the proxima l phalanx of this finger. The other PIP joints also exhibit advanced degenerative changes Distal interphalangeal joints also exhibit degenerative change, most prominent at the DIP joint of th e 4th-ring finger which has similar appearance to the PIP joints. More standard moderate osteoarthri tic degenerative changes are noted in the other DIP joints. At the level the thumb there are minimal degenerative changes in the 1st carpometacarpal joint. Mode rate degenerative changes in the metacarpophalangeal joint and moderate degenerative changes in the i nterphalangeal joint of the thumb. IMPRESSION: No fractures. Multilevel advanced degenerative changes, most prominent at the proximal interphalange al joint of the 3rd-middle finger. At this level there is an element of partial subluxation related to the advanced arthritic changes of this articulation DATA REPOSITORY: RADIATION DOSE DELIVERED:
--- NOTE | 2024-10-14 15:36 | ED.GENADUL_ITS ---
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, Sprain of right middle finger Primary Care Provider: Melissa Garcia ED Provider: Andres Cotter Home Meds and New Rx's Prescriptions: Continued ipratropium-albuterol 0.5 mg-3 mg(2.5 mg base)/3 mL solution for nebulization 3 ml inhalation Q4H PRN tizanidine 2 mg tablet 2 mg PO Q8H PRN fluconazole 100 mg tablet 100 mg PO DAILY PRN amlodipine 5 mg tablet 5 mg PO DAILY cholecalciferol (vitamin D3) 50 mcg (2,000 unit) capsule 50 mcg PO DAILY duloxetine 60 mg capsule,delayed release(DR/EC) 60 mg PO DAILY elderberry fruit See Rx Instructions PO DIRECTED Rx Instructions: orally as directed; metoprolol tartrate 100 mg tablet 100 mg PO DAILY nystatin 100,000 unit/mL suspension See Rx Instructions PO DIRECTED Rx Instructions: orally as directed; swish and swallow acetaminophen [Tylenol Arthritis Pain] 650 mg tablet extended release See Rx Instructions PO TID PRN Rx Instructions: orally three times a day PRN; albuterol sulfate 3 ML solution for nebulization 1 unit Inhalation QID PRN Patient Comments: 02/10/14- pt has not used for months, per pt methylprednisolone 4 MG tablet 4 mg PO DAILY leflunomide [Arava] 20 MG tablet 20 mg PO DAILY esomeprazole magnesium [Nexium] 40 MG capsule,delayed release(DR/EC) 40 mg PO DAILY zolpidem 10 MG tablet 10 mg PO HS ondansetron HCl 4 mg tablet 4 mg PO Q8H PRN PRN albuterol sulfate [Ventolin HFA] 90 mcg/actuation Hfa Aerosol Inhaler 2 puff inhalation Q4H PRN PRNQty: 8.5 0RF montelukast [Singulair] 10 mg tablet 10 mg PO QHS lisinopril 10 mg tablet 10 mg PO DAILY calcium citrate 200 mg (950 mg) tablet 200 mg PO DAILY Patient Comments: TAKE ONE TABLET BY MOUTH ONCE DAILY folic acid 800 mcg tablet 0.8 mg PO DAILY Patient Comments: TAKE ONE TABLET BY MOUTH EVERY DAY IN THE MORNING. aspirin 81 mg Tablet,Chewable 81 mg PO DAILY Multi Vitamin 9 mg iron/15 mL Liquid 1 mg PO DAILY insulin lispro [Humalog KwikPen Insulin] 100 unit/mL Insulin Pen See Rx Instructions .ROUTE .COMPLEX Rx Instructions: Original sig- 10 units+SS sc tid with meals. Pt often skips breakfast and lunch dosing due to BG in range, normally injects 14 units sc with evening meal atorvastatin 20 mg tablet 20 mg PO QPM Patient Comments: TAKE 1 TABLET BY MOUTH EVERY NIGHT AT BEDTIME insulin glargine [Lantus Solostar U-100 Insulin] 100 unit/mL (3 mL) insulin pen 24 unit SUBCUT QAM indapamide 2.5 mg tablet 2.5 mg PO DAILY Patient Comments: TAKE ONE TABLET BY MOUTH ONCE DAILY Discontinued conjugated estrogens 0.625 mg/gram cream 0.625 mg vaginal PRN PRN Rx Instructions: off 5 days; repeat cycle Discharge Instructions Instructions: Osteoarthritis, Finger Sprain ED Additional Instructions: Please use splint to immobilize the finger over the next week. Avoid activities that worsen pain. Take medication as prescribed. Please follow-up with your primary care physician. Should pain and swelling not improve as expected with rest after a few days, additional diagnostic testing and treatment may be necessary. Please be sure to discuss with your doctor. Return to the emergency department immediately for any worsening or new concerning symptoms. Referrals: Melissa Garcia [Primary Care Provider] - Discharge Data Discharge Date/Time-TO BE ENTERED AT DEPARTURE: 10/14/24 16:37 HPI General Mode of arrival: ambulatory . Date/Time Provider Initiated Documentation: 10/14/24 14:12 . Limitations to Documentation: no limitations . Information obtained by: patient . HPI Narrative: HISTORY OF PRESENT ILLNESS The patient is a 69-year-old female with a right middle finger injury from grabbing a shopping cart yesterday. She has a history of arthritis and reports pain, swelling, and difficulty bending the finger. She took Tylenol for discomfort. She is concerned about potential misalignment. She has a history of psoriatic, rheumatoid, and osteoarthritis, and takes Arava and Tylenol. Pressure and heat provide some relief. Related Data Home Medications ?Medication ?Instructions ?Recorded ?Confirmed albuterol sulfate 2.5 mg/3 mL 1 unit inhalation QID PRN 01/11/14 10/14/24 (0.083 %) solution for nebulization esomeprazole magnesium 40 mg 40 mg PO DAILY 01/11/14 10/14/24 capsule,delayed release (Nexium) leflunomide 20 mg tablet (Arava) 20 mg PO DAILY 01/11/14 10/14/24 methylprednisolone 4 mg tablet 4 mg PO DAILY 01/11/14 10/14/24 zolpidem 10 mg tablet 10 mg PO HS 01/11/14 10/14/24 aspirin 81 mg chewable tablet 81 mg PO DAILY 04/09/19 10/14/24 insulin lispro 100 unit/mL See Rx Instructions .Route .COMPLEX 04/09/19 10/14/24 subcutaneous pen (Humalog KwikPen (U-100) Insulin) multivitamin with minerals-iron 1 mg PO DAILY 04/09/19 10/14/24 fumarate 9 mg iron/15 mL oral liquid (Multi Vitamin) ondansetron HCl 4 mg tablet 4 mg PO Q8H PRN PRN 05/10/22 10/14/24 albuterol sulfate 90 mcg/actuation 2 puff inhalation Q4H PRN PRN #8.5 05/13/22 10/14/24 aerosol inhaler (Ventolin HFA) grams atorvastatin 20 mg tablet 20 mg PO QPM 08/26/23 10/14/24 indapamide 2.5 mg tablet 2.5 mg PO DAILY 08/27/23 10/14/24 insulin glargine 100 unit/mL (3 24 unit subcut QAM 08/27/23 10/14/24 mL) subcutaneous pen (Lantus Solostar U-100 Insulin) lisinopril 10 mg tablet 10 mg PO DAILY 09/30/23 10/14/24 montelukast 10 mg tablet 10 mg PO QHS 09/30/23 10/14/24 (Singulair) calcium citrate 200 mg PO DAILY 10/01/23 10/14/24 folic acid 800 mcg tablet 0.8 mg PO DAILY 10/01/23 10/14/24 acetaminophen 650 mg See Rx Instructions PO TID PRN 12/11/23 10/14/24 tablet,extended release (Tylenol Arthritis Pain) amlodipine 5 mg tablet 5 mg PO DAILY 12/11/23 10/14/24 cholecalciferol (vitamin D3) 50 50 mcg PO DAILY 12/11/23 10/14/24 mcg (2,000 unit) capsule duloxetine 60 mg capsule,delayed 60 mg PO DAILY 12/11/23 10/14/24 release elderberry fruit See Rx Instructions PO DIRECTED 12/11/23 10/14/24 metoprolol tartrate 100 mg tablet 100 mg PO DAILY 12/11/23 10/14/24 nystatin 100,000 unit/mL oral See Rx Instructions PO DIRECTED 12/11/23 10/14/24 suspension fluconazole 100 mg tablet 100 mg PO DAILY PRN 03/16/24 10/14/24 ipratropium 0.5 mg-albuterol 3 mg 3 ml inhalation Q4H PRN 03/16/24 10/14/24 (2.5 mg base)/3 mL nebulization soln tizanidine 2 mg tablet 2 mg PO Q8H PRN 03/16/24 10/14/24 Previous Rx's ?Medication ?Instructions ?Recorded albuterol sulfate 90 mcg/actuation 2 puff inhalation Q4H PRN PRN #8.5 05/13/22 aerosol inhaler (Ventolin HFA) grams Allergies Allergy/AdvReac Type Severity Reaction Status Date / Time capsaicin Allergy Severe Anaphylaxsi Unverified 10/14/24 14:04 s clarithromycin (From Biaxin) Allergy Intermediate Skin Rash Unverified 10/14/24 14:04 Penicillins Allergy Intermediate Skin Rash Unverified 10/14/24 14:04 Sulfa (Sulfonamide Allergy Intermediate Skin Rash Unverified 10/14/24 14:04 Antibiotics) nickel Allergy Mild Itching Unverified 10/14/24 14:04 acitretin Allergy Unknown Swelling/Ed Unverified 10/14/24 14:04 tc amoxicillin Allergy Unknown Unknown Unverified 10/14/24 14:04 jiang pepper Allergy Unknown Unknown Unverified 10/14/24 14:04 cefazolin Allergy Unknown Unknown Unverified 10/14/24 14:04 gabapentin Allergy Unknown Dizziness/L Unverified 10/14/24 14:04 ighthead infliximab (From Remicade) Allergy Unknown passed out Unverified 10/14/24 14:04 isoniazid Allergy Unknown Unknown Unverified 10/14/24 14:04 oxycodone Allergy Unknown Other (See Unverified 10/14/24 14:04 Comment) tramadol Allergy Unknown Other (See Unverified 10/14/24 14:04 Comment) General Stated Complaint: Orthopedic ARABELLA: 4 Review of Systems Narrative: As per HPI Exam Narrative Exam Narrative: PHYSICAL EXAM General Appearance: Normal. Vital signs: BP 175/74, HR normal, pulse oximetry normal, RR normal, temp normal. HEENT: Within normal limits. Respiratory: Within normal limits. Cardiovascular: Within normal limits. Gastrointestinal: Within normal limits. Back, Musculoskeletal: Tenderness over the first IP joint. No significant tenderness over the third MCP or proximal phalanx. Mid phalanx nontender. Extremities: Varus deformity of the left third digit and right third digit with swelling. Skin: Warm and dry, no rash. Neurological: Sensation intact distally. Course Vital Signs Vital signs: Vital Signs Temperature 36.4 C 10/14/24 13:58 Pulse 71 10/14/24 13:58 Respiratory Rate 14 10/14/24 13:58 Blood Pressure 175/74 H 10/14/24 13:58 Pulse Oximetry 94 10/14/24 13:58 Temperature 36.4 C 10/14/24 13:58 Temperature Source Temporal Artery Scan 10/14/24 13:58 Pulse 71 10/14/24 13:58 Respiratory Rate 14 10/14/24 13:58 Blood Pressure 175/74 H 10/14/24 13:58 Blood Pressure Position Sitting 10/14/24 13:58 Pulse Oximetry 94 10/14/24 13:58 Oxygen Delivery Method Room Air 10/14/24 13:58 Oxygen Flow Rate 0 10/14/24 13:58 Pain Level 2 10/14/24 13:58 Medical Decision Making ASSESSMENT AND PLAN Initial Assessment: 69-year-old female with right middle finger injury, associated swelling, and history of arthritis. Hypertensive at 175/74. Differential Diagnosis: - Sprain: Considered due to mechanism of injury. Conservative management with volar splint, Tylenol, ice, rest, and elevation. - Fracture: Not present on x-ray. - Acute exacerbation of arthritis: X-ray shows advanced degenerative changes and partial subluxation. Conservative management as below. ED Course: - X-ray of the right middle finger obtained and interpreted by radiology: No fractures, advanced degenerative changes, partial subluxation. - Conservative management: Volar splint applied, Tylenol recommended, advised rest, ice, and elevation. - Discussed follow-up: If no improvement in a week, consider CT or MRI. Final Assessment: Right middle finger injury with advanced degenerative changes and chronic partial subluxation. Conservative management initiated. Arthritis management continued with current medications. Clinical Impression: - Right middle finger injury - Advanced degenerative changes - Partial subluxation - Arthritis (psoriatic, rheumatoid, osteoarthritis) Disposition: - Discharge - Follow-Up: If no improvement in a week, consider additional imaging (CT or MRI). MDM Components Evaluation: - Number of Differential Diagnoses or Management Options: Sprain, fracture, acute exacerbation of arthritis. - Amount and Complexity of Data Reviewed: X-ray interpreted by radiology. - Risk of Complication and Morbidity or Mortality: Low risk given conservative management and no fracture identified. This document was written with the assistance of [employer]. The patient consented to its use. 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 (Acute) Chronic pain disorder (Chronic) Lumbar radiculitis (Acute) Postlaminectomy syndrome of lumbar region (Acute) GERD (gastroesophageal reflux disease) (Chronic) Diffuse spasm of esophagus (Acute) Spondylosis (Acute) Cardiomegaly (Acute) Heart murmur (Acute) Mild intermittent asthma (Acute) Pure hypercholesterolemia (Acute) Lymphedema (Acute) Peripheral venous insufficiency (Acute) Spasm of back muscles (Acute) Actinic keratosis (Acute) Aortic valve stenosis, nonrheumatic (Acute) Acute bronchitis (Acute) Fatigue (Acute) Nausea (Acute) Chronic cough (Acute) Snoring (Acute) Dyspnea on exertion (Acute) Daytime somnolence (Acute) Exacerbation of intermittent asthma (Acute) Otitis externa (Acute) Insomnia (Acute) Candidiasis of mouth (Acute) Influenza A (Acute) Diabetes mellitus (Chronic) Psoriatic arthritis (Acute) Renal insufficiency (Chronic) Polypharmacy (Acute) Bacteremia (Acute) Pneumonia (Acute) COVID (Acute) Cellulitis and abscess of foot (Acute) Contusion of right foot (Acute) Sepsis (Acute) Bone infection of left foot (Acute) Status post total left knee replacement (Acute) Pain (Acute) Lower extremity pain (Acute) Medical History Effusion of knee Vertigo Urinary disorder Skin disorder Syncope Musculoskeletal disease Motion sickness Liver disease Irregular heart beat Infection Genital disease, female Eye problem ENT disease Elevated cholesterol Digestive problems Complication of anesthesia Circulatory disease Cancer Breathing problem Basal cell carcinoma Chest pain Postoperative anemia due to acute blood loss Hyperlipidemia Hepatosplenomegaly Gait abnormality DVT (deep venous thrombosis) Complex regional pain syndrome type 2 of lower extremity Spinal stenosis Age related osteoporosis Abnormal liver function Failed total knee arthroplasty Fecal impaction Crushing injury of unspecified knee, sequela Chronic prescription opiate use History of falling Obesity Rupture of left quadriceps tendon Fracture of metatarsal of left foot, closed Pain in right ankle and joints of right foot Psoriasis Prepatellar bursitis Quadriceps tendon rupture History of basal cell carcinoma Loose orthopedic implant MOELLER (nonalcoholic steatohepatitis) Type 2 diabetes mellitus Asthma Arthritis Elevated troponin Severe sepsis Acute UTI Chronic pain Edema, peripheral Bacteremia due to group B Streptococcus Surgical History History of endoscopy History of laparotomy Hx of colonoscopy Status post left knee replacement Artificial knee joint present History of arthroplasty of left knee History of total knee arthroplasty History of lumbar surgery S/P revision of total knee Hx of hysterectomy Hx of spinal surgery Hx of laminectomy History of left knee replacement s/p revision for infected prosthesis Family History Brother Cancer family hx of cancer Sister Cancer Diabetes High cholesterol Hypertension Father Stroke Diabetes Coronary artery disease Heart disease High cholesterol Hypertension Thrombophilia Mother Mental disorder Osteoporosis Maternal Grandmother Breast cancer Cancer Sister High cholesterol Hypertension Diabetes Social History Smoking/Tobacco Use Status: Never Smoking risk assessment performed?: Yes Alcohol Intake: current Alcohol Intake frequency: holidays/special occasions only Drug use: Never Substance use type: marijuana Details: occasionally will do a THC edible Housing: house Do you feel safe at home: Yes Do you feel safe in your relationship?: Yes Additional Social history: Lives with in [place]. 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
== END 2024-10-14 16:37 | disposition home or self-care (01) ==
PROVIDERS: Emergency Provider Student in an Organized Health Care Education/Training Program; PCP Family Medicine
DX: S63.612A Unspecified sprain of right middle finger, initial encounter (principal); M19.041 Primary osteoarthritis, right hand; E11.9 Type 2 diabetes mellitus without complications; I10 Essential (primary) hypertension; Z79.82 Long term (current) use of aspirin; Z79.4 Long term (current) use of insulin; M06.9 Rheumatoid arthritis, unspecified; L40.50 Arthropathic psoriasis, unspecified; X50.9XXA Other and unspecified overexertion or strenuous movements or postures, initial encounter; Y93.89 Activity, other specified; Y92.512 Supermarket, store or market as the place of occurrence of the external cause
CPT/HCPCS: 99283; 73140

== ENCOUNTER 2025-01-18 21:37 | Outpatient (REF) | payer MEDICARE, BC, SELFPAY ==
[2025-01-18 22:22] LABS: Bilirubin Negative (Negative); Blood Negative (Negative); Clarity Sl Cloudy (Clear); Glucose Negative (Negative); Ketones Negative (Negative); Leukocyte Esterase Moderate (Negative); Nitrite Positive (Negative); Specific Gravity >= 1.030 (1.005-1.025); Urobilinogen 0.2 mg/dL (Up to 0.2); pH 5.5 (5-8)
[2025-01-18 22:28] LABS: Bacteria Many HPF (Negative); Casts Negative LPF (Negative); Crystals Negative HPF (Negative); Epithelial Cells Few HPF (Negative); Mucus Moderate (Negative); RBC Negative HPF (0-2); WBC 20-50 HPF (0-5)
[2025-01-18 22:29] LABS: C & S Indicated? Yes
== END 2025-01-18 21:38 | disposition home or self-care (01) ==
LOC: NCHCN 21:37
PROVIDERS: PCP Family Medicine; Visit Provider Nurse Practitioner Family
DX: N39.0 Urinary tract infection, site not specified (principal); B96.29 Other Escherichia coli [E. coli] as the cause of diseases classified elsewhere
CPT/HCPCS: 87077; 81003; 81015; 87086; 87186

== ENCOUNTER 2025-02-07 08:18 | Inpatient (IN) | payer MEDICARE, BC, SELFPAY ==
[2025-02-07] VITALS (64 sets, daily range): BP systolic 112–164; BP diastolic 38–116; PULSE 59–922; RESP 8–23; TEMP 36.7–37.3; O2SAT 84–100
--- NOTE | 2025-02-07 08:15 | RT.EKG_ITS ---
APPROVED REPORT Exam: Resting ECG Reason for Exam: weakness Patient Location: E HR:89 bpm ECG Measurements Heart Rate 89 AXIS OH 140 P 12 QRSd 145 QRS -70 QT 392 T 112 QTc 469 Conclusion Sinus rhythm...normal P axis, V-rate 60- 99 Atrial premature complex...SV complex w/ short R-R interval RBBB and LAFB...QRSd >120mS, axis(-40,240) LVH with secondary repolarization abnormality...multi-LVH criteria, abnrm ST-T No Occlusion VT
--- NOTE | 2025-02-07 08:27 | W.ED.GENAD ---
Discharge Plan Discharge Details Primary Care Provider: Melissa Garcia ED Provider: Jorge Raya Home Meds and New Rx's Prescriptions: No Action ipratropium-albuterol 0.5 mg-3 mg(2.5 mg base)/3 mL solution for nebulization 3 ml inhalation Q4H PRN tizanidine 2 mg tablet 2 mg PO Q8H PRN fluconazole 100 mg tablet 100 mg PO DAILY PRN amlodipine 5 mg tablet 5 mg PO DAILY cholecalciferol (vitamin D3) 50 mcg (2,000 unit) capsule 50 mcg PO DAILY duloxetine 60 mg capsule,delayed release(DR/EC) 60 mg PO DAILY elderberry fruit See Rx Instructions PO DIRECTED Rx Instructions: orally as directed; metoprolol tartrate 100 mg tablet 100 mg PO DAILY nystatin 100,000 unit/mL suspension See Rx Instructions PO DIRECTED Rx Instructions: orally as directed; swish and swallow acetaminophen [Tylenol Arthritis Pain] 650 mg tablet extended release See Rx Instructions PO TID PRN Rx Instructions: orally three times a day PRN; albuterol sulfate 3 ML solution for nebulization 1 unit Inhalation QID PRN Patient Comments: 02/10/14- pt has not used for months, per pt methylprednisolone 4 MG tablet 4 mg PO DAILY leflunomide [Arava] 20 MG tablet 20 mg PO DAILY esomeprazole magnesium [Nexium] 40 MG capsule,delayed release(DR/EC) 40 mg PO DAILY zolpidem 10 MG tablet 10 mg PO HS ondansetron HCl 4 mg tablet 4 mg PO Q8H PRN PRN albuterol sulfate [Ventolin HFA] 90 mcg/actuation Hfa Aerosol Inhaler 2 puff inhalation Q4H PRN PRNQty: 8.5 0RF montelukast [Singulair] 10 mg tablet 10 mg PO QHS lisinopril 10 mg tablet 10 mg PO DAILY calcium citrate 200 mg (950 mg) tablet 200 mg PO DAILY Patient Comments: TAKE ONE TABLET BY MOUTH ONCE DAILY folic acid 800 mcg tablet 0.8 mg PO DAILY Patient Comments: TAKE ONE TABLET BY MOUTH EVERY DAY IN THE MORNING. aspirin 81 mg Tablet,Chewable 81 mg PO DAILY Multi Vitamin 9 mg iron/15 mL Liquid 1 mg PO DAILY insulin lispro [Humalog KwikPen Insulin] 100 unit/mL Insulin Pen See Rx Instructions .ROUTE .COMPLEX Rx Instructions: Original sig- 10 units+SS sc tid with meals. Pt often skips breakfast and lunch dosing due to BG in range, normally injects 14 units sc with evening meal atorvastatin 20 mg tablet 20 mg PO QPM Patient Comments: TAKE 1 TABLET BY MOUTH EVERY NIGHT AT BEDTIME insulin glargine [Lantus Solostar U-100 Insulin] 100 unit/mL (3 mL) insulin pen 24 unit SUBCUT QAM indapamide 2.5 mg tablet 2.5 mg PO DAILY Patient Comments: TAKE ONE TABLET BY MOUTH ONCE DAILY HPI General Date/Time Provider Initiated Documentation: 02/07/25 08:27. Related Data Home Medications ?Medication ?Instructions ?Recorded ?Confirmed albuterol sulfate 2.5 mg/3 mL 1 unit inhalation QID PRN 01/11/14 10/14/24 (0.083 %) solution for nebulization esomeprazole magnesium 40 mg 40 mg PO DAILY 01/11/14 10/14/24 capsule,delayed release (Nexium) leflunomide 20 mg tablet (Arava) 20 mg PO DAILY 01/11/14 10/14/24 methylprednisolone 4 mg tablet 4 mg PO DAILY 01/11/14 10/14/24 zolpidem 10 mg tablet 10 mg PO HS 01/11/14 10/14/24 aspirin 81 mg chewable tablet 81 mg PO DAILY 04/09/19 10/14/24 insulin lispro 100 unit/mL See Rx Instructions .Route .COMPLEX 04/09/19 10/14/24 subcutaneous pen (Humalog KwikPen (U-100) Insulin) multivitamin with minerals-iron 1 mg PO DAILY 04/09/19 10/14/24 fumarate 9 mg iron/15 mL oral liquid (Multi Vitamin) ondansetron HCl 4 mg tablet 4 mg PO Q8H PRN PRN 05/10/22 10/14/24 albuterol sulfate 90 mcg/actuation 2 puff inhalation Q4H PRN PRN #8.5 05/13/22 10/14/24 aerosol inhaler (Ventolin HFA) grams atorvastatin 20 mg tablet 20 mg PO QPM 08/26/23 10/14/24 indapamide 2.5 mg tablet 2.5 mg PO DAILY 08/27/23 10/14/24 insulin glargine 100 unit/mL (3 24 unit subcut QAM 08/27/23 10/14/24 mL) subcutaneous pen (Lantus Solostar U-100 Insulin) lisinopril 10 mg tablet 10 mg PO DAILY 09/30/23 10/14/24 montelukast 10 mg tablet 10 mg PO QHS 09/30/23 10/14/24 (Singulair) calcium citrate 200 mg PO DAILY 10/01/23 10/14/24 folic acid 800 mcg tablet 0.8 mg PO DAILY 10/01/23 10/14/24 acetaminophen 650 mg See Rx Instructions PO TID PRN 12/11/23 10/14/24 tablet,extended release (Tylenol Arthritis Pain) amlodipine 5 mg tablet 5 mg PO DAILY 12/11/23 10/14/24 cholecalciferol (vitamin D3) 50 50 mcg PO DAILY 12/11/23 10/14/24 mcg (2,000 unit) capsule duloxetine 60 mg capsule,delayed 60 mg PO DAILY 12/11/23 10/14/24 release elderberry fruit See Rx Instructions PO DIRECTED 12/11/23 10/14/24 metoprolol tartrate 100 mg tablet 100 mg PO DAILY 12/11/23 10/14/24 nystatin 100,000 unit/mL oral See Rx Instructions PO DIRECTED 12/11/23 10/14/24 suspension fluconazole 100 mg tablet 100 mg PO DAILY PRN 03/16/24 10/14/24 ipratropium 0.5 mg-albuterol 3 mg 3 ml inhalation Q4H PRN 03/16/24 10/14/24 (2.5 mg base)/3 mL nebulization soln tizanidine 2 mg tablet 2 mg PO Q8H PRN 03/16/24 10/14/24 Previous Rx's ?Medication ?Instructions ?Recorded albuterol sulfate 90 mcg/actuation 2 puff inhalation Q4H PRN PRN #8.5 05/13/22 aerosol inhaler (Ventolin HFA) grams Allergies Allergy/AdvReac Type Severity Reaction Status Date / Time capsaicin Allergy Severe Anaphylaxsi Unverified 10/14/24 14:04 s clarithromycin (From Biaxin) Allergy Intermediate Skin Rash Unverified 10/14/24 14:04 Penicillins Allergy Intermediate Skin Rash Unverified 10/14/24 14:04 Sulfa (Sulfonamide Allergy Intermediate Skin Rash Unverified 10/14/24 14:04 Antibiotics) nickel Allergy Mild Itching Unverified 10/14/24 14:04 acitretin Allergy Unknown Swelling/Ed Unverified 10/14/24 14:04 tc amoxicillin Allergy Unknown Unknown Unverified 10/14/24 14:04 jiang pepper Allergy Unknown Unknown Unverified 10/14/24 14:04 cefazolin Allergy Unknown Unknown Unverified 10/14/24 14:04 gabapentin Allergy Unknown Dizziness/L Unverified 10/14/24 14:04 ighthead infliximab (From Remicade) Allergy Unknown passed out Unverified 10/14/24 14:04 isoniazid Allergy Unknown Unknown Unverified 10/14/24 14:04 oxycodone Allergy Unknown Other (See Unverified 10/14/24 14:04 Comment) tramadol Allergy Unknown Other (See Unverified 10/14/24 14:04 Comment) General ARABELLA: 4 PFSH All Active Problems (Updated 11/14/24 @ 00:02 by SERENITY HAILE) Chronic pain disorder (Chronic) Lumbar radiculitis (Acute) Postlaminectomy syndrome of lumbar region (Acute) GERD (gastroesophageal reflux disease) (Chronic) Diffuse spasm of esophagus (Acute) Spondylosis (Acute) Cardiomegaly (Acute) Heart murmur (Acute) Mild intermittent asthma (Acute) Pure hypercholesterolemia (Acute) Lymphedema (Acute) Peripheral venous insufficiency (Acute) Spasm of back muscles (Acute) Actinic keratosis (Acute) Aortic valve stenosis, nonrheumatic (Acute) Acute bronchitis (Acute) Fatigue (Acute) Nausea (Acute) Chronic cough (Acute) Snoring (Acute) Dyspnea on exertion (Acute) Daytime somnolence (Acute) Exacerbation of intermittent asthma (Acute) Otitis externa (Acute) Insomnia (Acute) Candidiasis of mouth (Acute) Influenza A (Acute) Diabetes mellitus (Chronic) Psoriatic arthritis (Acute) Renal insufficiency (Chronic) Polypharmacy (Acute) Bacteremia (Acute) Pneumonia (Acute) COVID (Acute) Cellulitis and abscess of foot (Acute) Contusion of right foot (Acute) Sepsis (Acute) Bone infection of left foot (Acute) Status post total left knee replacement (Acute) Pain (Acute) Lower extremity pain (Acute) Medical History Effusion of knee Vertigo Urinary disorder Skin disorder Syncope Musculoskeletal disease Motion sickness Liver disease Irregular heart beat Infection Genital disease, female Eye problem ENT disease Elevated cholesterol Digestive problems Complication of anesthesia Circulatory disease Cancer Breathing problem Basal cell carcinoma Chest pain Postoperative anemia due to acute blood loss Hyperlipidemia Hepatosplenomegaly Gait abnormality DVT (deep venous thrombosis) Complex regional pain syndrome type 2 of lower extremity Spinal stenosis Age related osteoporosis Abnormal liver function Failed total knee arthroplasty Fecal impaction Crushing injury of unspecified knee, sequela Chronic prescription opiate use History of falling Obesity Rupture of left quadriceps tendon Fracture of metatarsal of left foot, closed Pain in right ankle and joints of right foot Psoriasis Prepatellar bursitis Quadriceps tendon rupture History of basal cell carcinoma Loose orthopedic implant MOELLER (nonalcoholic steatohepatitis) Type 2 diabetes mellitus Asthma Arthritis Elevated troponin Severe sepsis Acute UTI Chronic pain Edema, peripheral Bacteremia due to group B Streptococcus Surgical History History of endoscopy History of laparotomy Hx of colonoscopy Status post left knee replacement Artificial knee joint present History of arthroplasty of left knee History of total knee arthroplasty History of lumbar surgery S/P revision of total knee Hx of hysterectomy Hx of spinal surgery Hx of laminectomy History of left knee replacement s/p revision for infected prosthesis Family History Brother Cancer family hx of cancer Sister Cancer Diabetes High cholesterol Hypertension Father Stroke Diabetes Coronary artery disease Heart disease High cholesterol Hypertension Thrombophilia Mother Mental disorder Osteoporosis Maternal Grandmother Breast cancer Cancer Sister High cholesterol Hypertension Diabetes Social History Smoking/Tobacco Use Status: Never Smoking risk assessment performed?: Yes Alcohol Intake: current Alcohol Intake frequency: holidays/special occasions only Drug use: Never Substance use type: marijuana Details: occasionally will do a THC edible Housing: house Do you feel safe at home: Yes Do you feel safe in your relationship?: Yes Additional Social history: Lives with in [place]. 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
--- NOTE | 2025-02-07 08:30 | DI.CT_ITS ---
Exam(s) CT ABDOMEN PELVIS W EXAM: CT ABDOMEN PELVIS W CLINICAL HISTORY: RUQ tender, intractable nausea/vomiting TECHNIQUE: Imaging Protocol: Axial computed tomography images with coronal and sagittal reformatted images were created and reviewed. CONTRAST MATERIAL: Intravenous: Contrast Contrast volume:75 mL Oral: No COMPARISON: MR MRI - LUMBAR SPINE WO CONTRAST from 05/15/[address] ABDOMEN PELVIS W from 09/30/2023 FINDINGS: The examination is limited due to patient motion artifact. ABDOMEN: Lung Bases: Coronary artery calcification is present. Mitral annular calcifications are noted. Liver: Normal density. No measurable mass. Portal, Superior Mesenteric, and Splenic Veins: Unremarkable. Gallbladder and Biliary Tract: No radiodense calculus or dilation. Pancreas: There is diffuse pancreatic atrophy. No evidence of a pancreatic mass or peripancreatic fluid collection. Spleen: Normal. Adrenals: No masses seen. Kidneys: Normal size, contour and axis. No radiodense stones or obstructive uropathy. No masses seen. Abdominal Aorta: Abdominal portion non-dilated. Extensive atherosclerotic calcification is present. Bowel: No obstruction or bowel wall thickening. There is no evidence of appendicitis. Peritoneal Cavity: No ascites, collection or mesenteric inflammatory response. No free air. Lymph Nodes: Within normal limits. Bones: Within normal limits for the patient's age. There are old left rib fracture deformities. The proximal aspect of an intramedullary leo is seen in the left femur. There is again seen a calcification in the left aspect of the spinal canal at L3-L4. This is unchanged in causes left lateral recess stenosis and compression of the left neural foramen. There is a right convex lumbar scoliosis. Soft Tissues: Unremarkable. PELVIS: Bladder: Symmetric distention, no gross wall thickening. Reproductive Organs: Status post hysterectomy. Lymph Nodes: Within normal limits. Bones: Within normal limits for the patient's age. IMPRESSION: 1. Status post cholecystectomy. No significant biliary ductal dilatation. 2. No evidence of nephrolithiasis or hydronephrosis. 3. No acute abdominal or pelvic process. RADIATION DOSE DELIVERED: 543.64mGy.cm Total DLP DATA REPOSITORY: All CT scans at this facility are submitted to the National Radiology Data Registry (NRDR) Dose Index Registry (DIR) with the [employer] (A[employer]). RADIATION OPTIMIZATION: All CT scans at this facility use at least one of these dose optimization techniques: automated exposure control; mA and/or kV adjustment per patient size (includes targeted exams where dose is matched to clinical indication); or iterative reconstruction.
[2025-02-07 08:47] LABS: Abs Immature Grans 0.04 10^3/uL (0.0-0.06); Absolute Eosinophil Count 0.02 10^3/uL (0.0-0.7); Absolute Lymphocyte Count 0.81 10^3/uL (1.2-3.4); Absolute Monocyte Count 0.33 10^3/uL (0.1-0.8); Absolute Neutrophil Count 8.71 10^3/uL (1.2-6.7); Eosinophils % 0.2 %; HCT 39.9 % (36.0-46.0); Immature Grans % 0.4 %; Lymphocytes % 8.1 %; MCH 29.9 pg (27.0-33.0); MCHC 32.6 % (32.0-36.0); MCV 92 fL (80-95); MPV 10.7 fL (8.0-11.0); Monocytes % 3.3 %; Platelet Count 228 10^3/uL (130-400); RBC 4.35 10^6/uL (3.93-5.22); RDW-SD 47.5 fL; WBC 10.01 10^3/uL (4.4-10.8)
[2025-02-07 08:49] LABS: Lactate 2.8 mmol/L (<or=2.0)
[2025-02-07] MEDS: Ketorolac 15 MG/ML VIAL IVP (08:53)
[2025-02-07] MEDS: Ondansetron 4 MG/2 ML VIAL IM (08:53)
[2025-02-07] MEDS: Normal Saline 1,000 ML 1000 ML IV (08:54)
[2025-02-07] MEDS: ACETAMINOPHEN 1,000 MG/100 ML BAG 100 MG (08:56)
[2025-02-07 09:02] LABS: ALT 42 U/L (14-59); AST 55 U/L (15-37); Albumin 3.3 g/dL (3.4-5.0); Alkaline Phosphatase 102 U/L (46-116); Anion Gap 12.5 mmol/L (3-11); BUN 21 mg/dL (7-18); Bilirubin, Total 1.1 mg/dL (0.2-1.0); CO2 27.5 mmol/L (21.0-32.0); CREATININE 1.2 mg/dL (0.55-1.02); Chloride 96 mmol/L (98-107); Estimated GFR 49.31 (mL/min/1.73m2); Glucose 197 mg/dL (74-106); Lipase 10 U/L (<78); Magnesium 1.5 mg/dL (1.8-2.4); Potassium 3.3 mmol/L (3.5-5.1); Sodium 136 mmol/L (136-145); Total Protein 7.1 g/dL (6.4-8.2)
--- NOTE | 2025-02-07 09:31 | W.ED.GENAD ---
Discharge Plan Disposition Patient Disposition: Admit to [facility] Condition: Stable Discharge Details Clinical Impression: Non-ST elevation [place] (NSTEMI) Primary Care Provider: Melissa Garcia ED Provider: Jayy Ying Home Meds and New Rx's Prescriptions: No Action ipratropium-albuterol 0.5 mg-3 mg(2.5 mg base)/3 mL solution for nebulization 3 ml inhalation Q4H PRN tizanidine 2 mg tablet 2 mg PO Q8H PRN fluconazole 100 mg tablet 100 mg PO DAILY PRN amlodipine 5 mg tablet 5 mg PO DAILY cholecalciferol (vitamin D3) 50 mcg (2,000 unit) capsule 50 mcg PO DAILY duloxetine 60 mg capsule,delayed release(DR/EC) 60 mg PO DAILY elderberry fruit See Rx Instructions PO DIRECTED Rx Instructions: orally as directed; metoprolol tartrate 100 mg tablet 100 mg PO DAILY nystatin 100,000 unit/mL suspension See Rx Instructions PO DIRECTED Rx Instructions: orally as directed; swish and swallow acetaminophen [Tylenol Arthritis Pain] 650 mg tablet extended release See Rx Instructions PO TID PRN Rx Instructions: orally three times a day PRN; albuterol sulfate 3 ML solution for nebulization 1 unit Inhalation QID PRN Patient Comments: 02/10/14- pt has not used for months, per pt methylprednisolone 4 MG tablet 4 mg PO DAILY leflunomide [Arava] 20 MG tablet 20 mg PO DAILY esomeprazole magnesium [Nexium] 40 MG capsule,delayed release(DR/EC) 40 mg PO DAILY zolpidem 10 MG tablet 10 mg PO HS ondansetron HCl 4 mg tablet 4 mg PO Q8H PRN PRN albuterol sulfate [Ventolin HFA] 90 mcg/actuation Hfa Aerosol Inhaler 2 puff inhalation Q4H PRN PRNQty: 8.5 0RF montelukast [Singulair] 10 mg tablet 10 mg PO QHS lisinopril 10 mg tablet 10 mg PO DAILY calcium citrate 200 mg (950 mg) tablet 200 mg PO DAILY Patient Comments: TAKE ONE TABLET BY MOUTH ONCE DAILY folic acid 800 mcg tablet 0.8 mg PO DAILY Patient Comments: TAKE ONE TABLET BY MOUTH EVERY DAY IN THE MORNING. aspirin 81 mg Tablet,Chewable 81 mg PO DAILY Multi Vitamin 9 mg iron/15 mL Liquid 1 mg PO DAILY insulin lispro [Humalog KwikPen Insulin] 100 unit/mL Insulin Pen See Rx Instructions .ROUTE .COMPLEX Rx Instructions: Original sig- 10 units+SS sc tid with meals. Pt often skips breakfast and lunch dosing due to BG in range, normally injects 14 units sc with evening meal atorvastatin 20 mg tablet 20 mg PO QPM Patient Comments: TAKE 1 TABLET BY MOUTH EVERY NIGHT AT BEDTIME insulin glargine [Lantus Solostar U-100 Insulin] 100 unit/mL (3 mL) insulin pen 24 unit SUBCUT QAM indapamide 2.5 mg tablet 2.5 mg PO DAILY Patient Comments: TAKE ONE TABLET BY MOUTH ONCE DAILY HPI General Date/Time Provider Initiated Documentation: 02/07/25 08:27. HPI Narrative: 69 year-old female presents to ED today by POV/wheelchair'd in with family with a chief complaint of nausea/vomiting, diarrhea for the past couple days, with worsening generalized weakness last night. States multiple subacute falls over the past few days, without headache or LOC. Quality described as L leg pain, mild abdominal pain, dizziness/weakness, no radiation to slurred speech, neck pain, chest pain, shortness of breath, fever, cough, dysuria, flank pain, endorses mid-back pain. Severity is described as severe for vomiting. Palliating factors include nothing specific attempted. Provoking factors include nothing specific. Events leading up to the incident/Associated Symptoms: Patient endorses history of strokes. Patient not anticoagulated. Related Data Home Medications ?Medication ?Instructions ?Recorded ?Confirmed albuterol sulfate 2.5 mg/3 mL 1 unit inhalation QID PRN 01/11/14 02/07/25 (0.083 %) solution for nebulization esomeprazole magnesium 40 mg 40 mg PO DAILY 01/11/14 02/07/25 capsule,delayed release (Nexium) leflunomide 20 mg tablet (Arava) 20 mg PO DAILY 01/11/14 02/07/25 methylprednisolone 4 mg tablet 4 mg PO DAILY 01/11/14 02/07/25 zolpidem 10 mg tablet 10 mg PO HS 01/11/14 02/07/25 aspirin 81 mg chewable tablet 81 mg PO DAILY 04/09/19 02/07/25 insulin lispro 100 unit/mL See Rx Instructions .Route .COMPLEX 04/09/19 02/07/25 subcutaneous pen (Humalog KwikPen (U-100) Insulin) multivitamin with minerals-iron 1 mg PO DAILY 04/09/19 02/07/25 fumarate 9 mg iron/15 mL oral liquid (Multi Vitamin) ondansetron HCl 4 mg tablet 4 mg PO Q8H PRN PRN 05/10/22 02/07/25 albuterol sulfate 90 mcg/actuation 2 puff inhalation Q4H PRN PRN #8.5 05/13/22 02/07/25 aerosol inhaler (Ventolin HFA) grams atorvastatin 20 mg tablet 20 mg PO QPM 08/26/23 02/07/25 indapamide 2.5 mg tablet 2.5 mg PO DAILY 08/27/23 02/07/25 insulin glargine 100 unit/mL (3 24 unit subcut QAM 08/27/23 02/07/25 mL) subcutaneous pen (Lantus Solostar U-100 Insulin) lisinopril 10 mg tablet 10 mg PO DAILY 09/30/23 02/07/25 montelukast 10 mg tablet 10 mg PO QHS 09/30/23 02/07/25 (Singulair) calcium citrate 200 mg PO DAILY 10/01/23 02/07/25 folic acid 800 mcg tablet 0.8 mg PO DAILY 10/01/23 02/07/25 acetaminophen 650 mg See Rx Instructions PO TID PRN 12/11/23 02/07/25 tablet,extended release (Tylenol Arthritis Pain) amlodipine 5 mg tablet 5 mg PO DAILY 12/11/23 02/07/25 cholecalciferol (vitamin D3) 50 50 mcg PO DAILY 12/11/23 02/07/25 mcg (2,000 unit) capsule duloxetine 60 mg capsule,delayed 60 mg PO DAILY 12/11/23 02/07/25 release elderberry fruit See Rx Instructions PO DIRECTED 12/11/23 02/07/25 metoprolol tartrate 100 mg tablet 100 mg PO DAILY 12/11/23 02/07/25 nystatin 100,000 unit/mL oral See Rx Instructions PO DIRECTED 12/11/23 02/07/25 suspension fluconazole 100 mg tablet 100 mg PO DAILY PRN 03/16/24 02/07/25 ipratropium 0.5 mg-albuterol 3 mg 3 ml inhalation Q4H PRN 03/16/24 02/07/25 (2.5 mg base)/3 mL nebulization soln tizanidine 2 mg tablet 2 mg PO Q8H PRN 03/16/24 02/07/25 Previous Rx's ?Medication ?Instructions ?Recorded albuterol sulfate 90 mcg/actuation 2 puff inhalation Q4H PRN PRN #8.5 05/13/22 aerosol inhaler (Ventolin HFA) grams Allergies Allergy/AdvReac Type Severity Reaction Status Date / Time capsaicin Allergy Severe Anaphylaxsi Unverified 02/07/25 08:28 s clarithromycin (From Biaxin) Allergy Intermediate Skin Rash Unverified 02/07/25 08:28 Penicillins Allergy Intermediate Skin Rash Unverified 02/07/25 08:28 Sulfa (Sulfonamide Allergy Intermediate Skin Rash Unverified 02/07/25 08:28 Antibiotics) nickel Allergy Mild Itching Unverified 02/07/25 08:28 acitretin Allergy Unknown Swelling/Ed Unverified 02/07/25 08:28 tc amoxicillin Allergy Unknown Unknown Unverified 02/07/25 08:28 jiang pepper Allergy Unknown Unknown Unverified 02/07/25 08:28 cefazolin Allergy Unknown Unknown Unverified 02/07/25 08:28 gabapentin Allergy Unknown Dizziness/L Unverified 02/07/25 08:28 ighthead infliximab (From Remicade) Allergy Unknown passed out Unverified 02/07/25 08:28 isoniazid Allergy Unknown Unknown Unverified 02/07/25 08:28 oxycodone Allergy Unknown Other (See Unverified 02/07/25 08:28 Comment) tramadol Allergy Unknown Other (See Unverified 02/07/25 08:28 Comment) General Stated Complaint: [employer] ARABELLA: 4 Review of Systems All systems reviewed & are unremarkable except as noted in HPI and below Exam Narrative Exam Narrative: GENERAL APPEARANCE: Toxic, actively vomiting, awake and alert, atraumatic, moderate acute distress. SKIN: Warm, pale, dry, intact, without rashes/lesions/ulcerations. HEAD: Normocephalic, small aged bruise to R forehead ~1.5cm, no periorbital ecchymosis, no Crespo's sign, normal hair distribution for gender/age. EYES: Normal conjunctiva, no exudates on lids/lashes. ENT: Nares patent, no circumoral cyanosis, no facial swelling NECK: Supple, trachea midline, painless cervical ROM. LUNGS/CHEST: Lungs CTA bilaterally- no rhonchi/rales/wheezes diffusely, non-labored respirations, normal A/P diameter, symmetrical expansion, no chest wall deformity HEART (CV/PV): Regular rate and rhythm without murmur, no peripheral edema, no JVD. ABDOMEN: Soft, non-distended, no guarding, RUQ tenderness without rebound tenderness, negative Armas's sign. MSK: Normal ROM, no swelling/deformity to bilateral UEs or LEs, moving all extremities without weakness, no cyanosis, spine midline without tenderness, normal curvature. NEURO: Mental Status AAOx4 - alert to person, place, time, events No facial droop, no forehead involvement. Motor: No focal weakness - strength 5/5 in bilateral UEs and LEs, proximal and distal, symmetric. Sensory: sensation intact to light touch globally. Gait NT. PSYCH: euthymic, cooperative, pleasant, appropriate speech Course Vital Signs Vital signs: Vital Signs Pulse 922 H 02/07/25 08:25 Blood Pressure 164/96 H 02/07/25 08:25 Pulse Oximetry 94 02/07/25 08:25 Temperature 37.3 C 02/07/25 08:42 Temperature Source Oral 02/07/25 08:42 Pulse 74 02/07/25 09:20 Pulse 74 02/07/25 09:20 Respiratory Rate 17 02/07/25 09:20 Respiratory Effort Normal, Non-Labored 02/07/25 08:33 Respiratory Depth Normal 02/07/25 08:33 Respiratory Pattern Normal 02/07/25 08:33 Blood Pressure 116/56 L 02/07/25 09:16 Blood Pressure Mean 79 02/07/25 09:16 Pulse Oximetry 92 02/07/25 09:20 Lab/Test Results Lab/Test Results: Laboratory Tests Range/Units 02/07/25 08:40 WBC (4.4-10.8) 10^3/uL 10.01 RBC (3.93-5.22) 10^6/uL 4.35 Hgb (11.2-15.7) g/dL 13.0 Hct (36.0-46.0) % 39.9 MCV (80-95) fL 92 MCH (27.0-33.0) pg 29.9 MCHC (32.0-36.0) % 32.6 RDW (11.7-14.6) % 14.0 Plt Count (130-400) 10^3/uL 228 MPV (8.0-11.0) fL 10.7 Immature Gran % % 0.4 Neutrophils % % 87.0 Lymphocytes % % 8.1 Monocytes % % 3.3 Eosinophils % % 0.2 Basophils % % 1.0 Nucleated RBC % (0.0-0.3) % 0.0 Absolute Neutrophils (1.2-6.7) 10^3/uL 8.71 H Absolute Lymphocytes (1.2-3.4) 10^3/uL 0.81 L Absolute Monocytes (0.1-0.8) 10^3/uL 0.33 Absolute Eosinophils (0.0-0.7) 10^3/uL 0.02 Absolute Basophils (0.0-0.2) 10^3/uL 0.10 VBG Lactate (<or=2.0) mmol/L 2.8 H* Sodium (136-145) mmol/L 136 Potassium (3.5-5.1) mmol/L 3.3 L Chloride (98-107) mmol/L 96 L Carbon Dioxide (21.0-32.0) mmol/L 27.5 Anion Gap (3-11) mmol/L 12.5 H BUN (7-18) mg/dL 21 H Creatinine (0.55-1.02) mg/dL 1.2 H Est GFR (CKD-EPI 2020) (mL/min/1.73m2) 49.31 Glucose (74-106) mg/dL 197 H Calcium (8.5-10.1) mg/dL 9.0 Magnesium (1.8-2.4) mg/dL 1.5 L Total Bilirubin (0.2-1.0) mg/dL 1.1 H AST (15-37) U/L 55 H ALT (14-59) U/L 42 Alkaline Phosphatase (46-116) U/L 102 Total Protein (6.4-8.2) g/dL 7.1 Albumin (3.4-5.0) g/dL 3.3 L Lipase (<78) U/L 10 Medical Decision Making This dictation utilizes [id number]-wa-ulam dictation software and may contain unedited grammatical errors. 69 year-old female presents to ED today by POV/shawn'd in with family with a chief complaint of nausea/vomiting, diarrhea for the past couple days, with worsening generalized weakness last night. States multiple subacute falls over the past few days, without headache or LOC. Quality described as L leg pain, mild abdominal pain, dizziness/weakness, no radiation to slurred speech, neck pain, chest pain, shortness of breath, fever, cough, dysuria, flank pain, endorses mid-back pain. Severity is described as severe for vomiting. Palliating factors include nothing specific attempted. Provoking factors include nothing specific. Events leading up to the incident/Associated Symptoms: Patient endorses history of strokes. 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 Family and social history: No EtOH or IVDU, no recent travel or sick contacts. Pertinent exam findings / vital signs include active vomiting on arrival, stable vitals, benign cardiopulmonary exam, mild lower abdominal tenderness in the left and right lower quadrants, 1.5 cm ecchymotic area of an old bruise on her right forehead, no midline neck pain, no periorbital ecchymosis or Crespo sign, mentating normally. Differential / pathologies of concern include Gastroenteritis, ICH, Biliary Colic, SBO, Sepsis, Electrolyte Abnormality, Renal Colic, PNA. Diagnostic studies of: - CBC, CMP, lactate, serial troponins, lipase, CT ABD/pelvis with contrast, serial EKGs, XR chest, CT head without contrast (added after ABD pathology r/o). - CBC shows no leukocytosis, no anemia, mild elevation of absolute neutrophils, low lymphocytes - CMP shows hypokalemia of 3.3 repeating IV, very small anion gap of 12.5, mildly elevated BUN at 21 with mildly elevated creatinine of 1.2 - Magnesium 1.5 replating IV - Lactate 2.8 initially, likely due to vomiting - Lipase negative - Initial troponin 52, 2-hour repeat shows 62 - Initial EKG shows sinus rhythm at [address] depressions in lead I, V4, V5, V6, shows inverted T waves in V2 V3, question some ST elevation in lead III, also inverted T waves with some ST depression in aVL - Repeat EKG shows dynamic changes, worsening ST elevation in lead III, somewhat improved ST depression V4 V5 V6 - CT ABD/Pelvis w Contrast shows no acute pathology - CT head wo shows no acute pathology - XR Chest shows mid-R lung opacity, not an optimal film- by my read I see blunting of Costophrenic angle more on L side Interventions of: -IV INF Magnesium 2gm, IV INF K+ 10mEq x2 doses, 1L IVF NS, 324 CH ASA PO. -[facility] Cardiology Consult @ [phone] - Spoke with Najma Herrera, [employer]ENTRAL PROCESSING TECHNICIAN @ [phone] - recommends no Plavix, starting heparin drip, trending trops, the T-wave inversions are concern, lead III elev less so, wants R-side and posterior EKG. Accepting for admission listing tomorrow for floor level care. Accepting physician Dr. Diaz at [phone]. -Consulted with Dr. Harmon [facility] Hospitalist for admission upstairs here on heparin drip trending troponins until transfer, accepted 1508. ED Course/Assessment/Plan: 69-year-old female presents with diarrhea for couple days and some severe weakness since last night with dizziness, some intractable vomiting today on arrival, denies chest pain throughout but has EKG changes with some T wave inversions in lateral leads, has ST elevation in lead III but is less concerning for [facility] cardiology, her troponin was rising slowly, initially 52, 2-hour repeat was performed as cardiac pathology was not the most likely diagnosis for her intractable nausea and vomiting and weakness which showed an increase to 62, further trended to 71 shortly after, she has no leukocytosis and her CT abdomen was completely negative for any acute pathology, she has no leukocytosis or shortness of breath, her XR chest shows a possible mid right lung opacity but has no respiratory symptoms and her film is of poor quality with body angles and, I see more costophrenic blunting of angle on the left side. Lipase is negative do not suspect any biliary tree pathology with relatively normal LFTs, initial lactate was 2.8 likely in the setting of vomiting, patient has had no labile or toxic vitals throughout visit making sepsis and unlikely diagnosis with no acute pathology seen on extensive imaging, CT head shows no intracranial hemorrhage or mass effect or other abnormality. [facility] cardiology accepted for transfer, listing for tomorrow, they recommend right sided and posterior EKGs as well as starting heparin drip, I have directed administrative staff to forward the right-sided and posterior EKGs and I have approached hospitalist service for admission here until the patient can be transferred, Dr. Harmon is aware of the disposition and plan and accepted for admission here at [facility] pending cardiology transfer to floor level care at [facility]. I counseled the patient and her on this and they are both on board with the plan, she is stable throughout visit with no further intractable nausea or vomiting since initial presentation. 1520: Patients R-sided EKG shows some ST-elevation in lateral leads, having [facility] Cardiology review it, patient signed out pending [facility] call-back. The R-sided EKG is borderline for STEMI criteria, but a very atypical presentation. I spoke again with Najma Herrera, DARLIN and Gunner'S Mate M Dr. Randolph @ [phone]- during this phone call, further troponin came back stable at 64ng. Plan to hold the course for transfer tomorrow. Hospitalists to update if patient develops extreme chest pain. Disposition of Non-ST Elevation [place] (NSTEMI). Patient verbalized understanding of the plan and return to ED criteria and engaged in shared decision making. Medical Records Medical records reviewed: Yes I reviewed the patient's medical records. Imaging Data Radiologic Study: Attestation: I personally reviewed and interpreted this imaging study as follows: Imaging: CT Scan Radiologist's impression: EXAM: CT ABDOMEN PELVIS W CLINICAL HISTORY: RUQ tender, intractable nausea/vomiting TECHNIQUE: Imaging Protocol: Axial computed tomography images with coronal and sagittal reformatted images were created and reviewed. CONTRAST MATERIAL: Intravenous: Contrast Contrast volume:75 mL Oral: No COMPARISON: MR MRI - LUMBAR SPINE WO CONTRAST from 05/15/[address] ABDOMEN PELVIS W from 09/30/2023 FINDINGS: The examination is limited due to patient motion artifact. ABDOMEN: Lung Bases: Coronary artery calcification is present. Mitral annular calcifications are noted. Liver: Normal density. No measurable mass. Portal, Superior Mesenteric, and Splenic Veins: Unremarkable. Gallbladder and Biliary Tract: No radiodense calculus or dilation. Pancreas: There is diffuse pancreatic atrophy. No evidence of a pancreatic mass or peripancreatic fluid collection. Spleen: Normal. Adrenals: No masses seen. Kidneys: Normal size, contour and axis. No radiodense stones or obstructive uropathy. No masses seen. Abdominal Aorta: Abdominal portion non-dilated. Extensive atherosclerotic calcification is present. Bowel: No obstruction or bowel wall thickening. There is no evidence of appendicitis. Peritoneal Cavity: No ascites, collection or mesenteric inflammatory response. No free air. Lymph Nodes: Within normal limits. Bones: Within normal limits for the patient's age. There are old left rib fracture deformities. The proximal aspect of an intramedullary leo is seen in the left femur. There is again seen a calcification in the left aspect of the spinal canal at L3-L4. This is unchanged in causes left lateral recess stenosis and compression of the left neural foramen. There is a right convex lumbar scoliosis. Soft Tissues: Unremarkable. PELVIS: Bladder: Symmetric distention, no gross wall thickening. Reproductive Organs: Status post hysterectomy. Lymph Nodes: Within normal limits. Bones: Within normal limits for the patient's age. IMPRESSION: 1. Status post cholecystectomy. No significant biliary ductal dilatation. 2. No evidence of nephrolithiasis or hydronephrosis. 3. No acute abdominal or pelvic process. Radiologic Study #2: Attestation: I personally reviewed and interpreted this imaging study as follows: Imaging: X-Ray Radiologist's impression: EXAM: XR CHEST 2V PA LATERAL CLINICAL HISTORY: n/v/d, elev trop TECHNIQUE: 2D digital imaging was performed of the chest. Two images were obtained. AP and lateral views were obtained. COMPARISON: CR XR CHEST 2V PA LATERAL from 09/07/2024 FINDINGS: There is poor inspiration. MEDIASTINUM: Normal. HEART: Normal. PULMONARY VASCULATURE: Normal. LUNGS: There is an ovoid opacity seen in the right mid lung. This was not present on the prior examination from August 2024. The left lung is clear. PLEURAL SPACE: No pleural effusion or pneumothorax. BONE:Within normal limits for the patient's age. OTHER FINDINGS:Normal. IMPRESSION: New opacity in the right mid lung. Differential considerations include pulmonary nodule, infiltrate or atelectasis. Follow-up as clinically appropriate. This may include a repeat chest x-ray in 7-[address] scan of the chest. Radiologic Study #3: Attestation: I personally reviewed and interpreted this imaging study as follows: Imaging: CT Scan Radiologist's impression: EXAM: CT HEAD WO CLINICAL HISTORY: forehead bruise, vomiting. TECHNIQUE: Imaging Protocol: Axial computed tomography images with coronal and sagittal reformatted images were created and reviewed COMPARISON: CT CT HEAD WO from 02/17/2023 FINDINGS: The examination is limited due to patient motion artifact.The patient has a CT scan of the abdomen and pelvis with contrast prior to the CT head examination. Ventricles and Extra axial spaces: Normal in size and morphology for the patient's age. Hemorrhage: None. Cerebral parenchyma: No evidence of an acute territorial infarct or mass effect. Midline shift: None. Brainstem/Cerebellum: Normal. Calvarium: Normal. Visualized Paranasal sinuses/Mastoids: Clear. Soft Tissues: Unremarkable. IMPRESSION: 1. The examination is limited due to patient motion artifact.. 2. The patient has a CT scan of the abdomen and pelvis with contrast earlier in the day. 3. No acute intracranial process. Lab Data Lab results reviewed: Yes I reviewed the patient's lab results. Labs: Laboratory Tests Range/Units 02/07/25 02/07/25 02/07/25 08:40 09:25 10:30 WBC (4.4-10.8) 10^3/uL 10.01 RBC (3.93-5.22) 10^6/uL 4.35 Hgb (11.2-15.7) g/dL 13.0 Hct (36.0-46.0) % 39.9 MCV (80-95) fL 92 MCH (27.0-33.0) pg 29.9 MCHC (32.0-36.0) % 32.6 RDW (11.7-14.6) % 14.0 Plt Count (130-400) 10^3/uL 228 MPV (8.0-11.0) fL 10.7 Immature Gran % % 0.4 Neutrophils % % 87.0 Lymphocytes % % 8.1 Monocytes % % 3.3 Eosinophils % % 0.2 Basophils % % 1.0 Nucleated RBC % (0.0-0.3) % 0.0 Absolute Neutrophils (1.2-6.7) 10^3/uL 8.71 H Absolute Lymphocytes (1.2-3.4) 10^3/uL 0.81 L Absolute Monocytes (0.1-0.8) 10^3/uL 0.33 Absolute Eosinophils (0.0-0.7) 10^3/uL 0.02 Absolute Basophils (0.0-0.2) 10^3/uL 0.10 VBG Lactate (<or=2.0) mmol/L 2.8 H* Sodium (136-145) mmol/L 136 Potassium (3.5-5.1) mmol/L 3.3 L Chloride (98-107) mmol/L 96 L Carbon Dioxide (21.0-32.0) mmol/L 27.5 Anion Gap (3-11) mmol/L 12.5 H BUN (7-18) mg/dL 21 H Creatinine (0.55-1.02) mg/dL 1.2 H Est GFR (CKD-EPI 2020) (mL/min/1.73m2) 49.31 Glucose (74-106) mg/dL 197 H Calcium (8.5-10.1) mg/dL 9.0 Magnesium (1.8-2.4) mg/dL 1.5 L Total Bilirubin (0.2-1.0) mg/dL 1.1 H AST (15-37) U/L 55 H ALT (14-59) U/L 42 Alkaline Phosphatase (46-116) U/L 102 Troponin I (<or=51) ng/L 52 H* 62 H* Total Protein (6.4-8.2) g/dL 7.1 Albumin (3.4-5.0) g/dL 3.3 L Lipase (<78) U/L 10 Add-On Test Request DONE Range/Units 02/07/25 12:27 WBC (4.4-10.8) 10^3/uL RBC (3.93-5.22) 10^6/uL Hgb (11.2-15.7) g/dL Hct (36.0-46.0) % MCV (80-95) fL MCH (27.0-33.0) pg MCHC (32.0-36.0) % RDW (11.7-14.6) % Plt Count (130-400) 10^3/uL MPV (8.0-11.0) fL Immature Gran % % Neutrophils % % Lymphocytes % % Monocytes % % Eosinophils % % Basophils % % Nucleated RBC % (0.0-0.3) % Absolute Neutrophils (1.2-6.7) 10^3/uL Absolute Lymphocytes (1.2-3.4) 10^3/uL Absolute Monocytes (0.1-0.8) 10^3/uL Absolute Eosinophils (0.0-0.7) 10^3/uL Absolute Basophils (0.0-0.2) 10^3/uL VBG Lactate (<or=2.0) mmol/L Sodium (136-145) mmol/L Potassium (3.5-5.1) mmol/L Chloride (98-107) mmol/L Carbon Dioxide (21.0-32.0) mmol/L Anion Gap (3-11) mmol/L BUN (7-18) mg/dL Creatinine (0.55-1.02) mg/dL Est GFR (CKD-EPI 2020) (mL/min/1.73m2) Glucose (74-106) mg/dL Calcium (8.5-10.1) mg/dL Magnesium (1.8-2.4) mg/dL Total Bilirubin (0.2-1.0) mg/dL AST (15-37) U/L ALT (14-59) U/L Alkaline Phosphatase (46-116) U/L Troponin I (<or=51) ng/L 71 H* Total Protein (6.4-8.2) g/dL Albumin (3.4-5.0) g/dL Lipase (<78) U/L Add-On Test Request PFSH All Active Problems (Updated 02/07/25 @ 15:07 by KATHI Shi) Non-ST elevation [place] (NSTEMI) (Acute) Chronic pain disorder (Chronic) Lumbar radiculitis (Acute) Postlaminectomy syndrome of lumbar region (Acute) GERD (gastroesophageal reflux disease) (Chronic) Diffuse spasm of esophagus (Acute) Spondylosis (Acute) Cardiomegaly (Acute) Heart murmur (Acute) Mild intermittent asthma (Acute) Pure hypercholesterolemia (Acute) Lymphedema (Acute) Peripheral venous insufficiency (Acute) Spasm of back muscles (Acute) Actinic keratosis (Acute) Aortic valve stenosis, nonrheumatic (Acute) Acute bronchitis (Acute) Fatigue (Acute) Nausea (Acute) Chronic cough (Acute) Snoring (Acute) Dyspnea on exertion (Acute) Daytime somnolence (Acute) Exacerbation of intermittent asthma (Acute) Otitis externa (Acute) Insomnia (Acute) Candidiasis of mouth (Acute) Influenza A (Acute) Diabetes mellitus (Chronic) Psoriatic arthritis (Acute) Renal insufficiency (Chronic) Polypharmacy (Acute) Bacteremia (Acute) Pneumonia (Acute) COVID (Acute) Cellulitis and abscess of foot (Acute) Contusion of right foot (Acute) Sepsis (Acute) Bone infection of left foot (Acute) Status post total left knee replacement (Acute) Pain (Acute) Lower extremity pain (Acute) Medical History Effusion of knee Vertigo Urinary disorder Skin disorder Syncope Musculoskeletal disease Motion sickness Liver disease Irregular heart beat Infection Genital disease, female Eye problem ENT disease Elevated cholesterol Digestive problems Complication of anesthesia Circulatory disease Cancer Breathing problem Basal cell carcinoma Chest pain Postoperative anemia due to acute blood loss Hyperlipidemia Hepatosplenomegaly Gait abnormality DVT (deep venous thrombosis) Complex regional pain syndrome type 2 of lower extremity Spinal stenosis Age related osteoporosis Abnormal liver function Failed total knee arthroplasty Fecal impaction Crushing injury of unspecified knee, sequela Chronic prescription opiate use History of falling Obesity Rupture of left quadriceps tendon Fracture of metatarsal of left foot, closed Pain in right ankle and joints of right foot Psoriasis Prepatellar bursitis Quadriceps tendon rupture History of basal cell carcinoma Loose orthopedic implant MOELLER (nonalcoholic steatohepatitis) Type 2 diabetes mellitus Asthma Arthritis Elevated troponin Severe sepsis Acute UTI Chronic pain Edema, peripheral Bacteremia due to group B Streptococcus Surgical History History of endoscopy History of laparotomy Hx of colonoscopy Status post left knee replacement Artificial knee joint present History of arthroplasty of left knee History of total knee arthroplasty History of lumbar surgery S/P revision of total knee Hx of hysterectomy Hx of spinal surgery Hx of laminectomy History of left knee replacement s/p revision for infected prosthesis Family History Brother Cancer family hx of cancer Sister Cancer Diabetes High cholesterol Hypertension Father Stroke Diabetes Coronary artery disease Heart disease High cholesterol Hypertension Thrombophilia Mother Mental disorder Osteoporosis Maternal Grandmother Breast cancer Cancer Sister High cholesterol Hypertension Diabetes Social History Smoking/Tobacco Use Status: Never Smoking risk assessment performed?: Yes Alcohol Intake: current Alcohol Intake frequency: holidays/special occasions only Drug use: Never Substance use type: marijuana Details: occasionally will do a THC edible Housing: house Do you feel safe at home: Yes Do you feel safe in your relationship?: Yes Additional Social history: Lives with in [place]. 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
[2025-02-07 09:52] LABS: Lab Add On Test DONE
[2025-02-07 10:11] LABS: Troponin I 52 ng/L (<or=51)
[2025-02-07] MEDS: Normal Saline - Diluent 50 ML VIAL IJ (10:15)
[2025-02-07] MEDS: Omnipaque 350 MG/ML 100 ML BTL 75 ML IJ (10:16)
[2025-02-07] MEDS: POTASSIUM CHLORIDE 10 MEQ/100 ML BAG 100 MEQ IV_INF ×2 (10:46→12:04)
[2025-02-07] MEDS: MAGNESIUM SULFATE 2 GM/50 ML BAG IV_INF (10:46)
--- NOTE | 2025-02-07 11:15 | RT.EKG_ITS ---
APPROVED REPORT Exam: Resting ECG Reason for Exam: repeat Patient Location: E HR:70 bpm ECG Measurements Heart Rate 70 AXIS FL 160 P 29 QRSd 141 QRS -48 QT 474 T 112 QTc 505 Conclusion Sinus rhythm...normal P axis, V-rate 60- 99 Atrial premature complex...SV complex w/ short R-R interval RBBB and LAFB...QRSd >120mS, axis(-40,240) LVH with secondary repolarization abnormality...multi-LVH criteria, abnrm ST-T ST elevation secondary to LVH...Multiple VCG criteria No Occlusion [place]
--- NOTE | 2025-02-07 11:15 | DI.RAD_ITS ---
Exam(s) XR CHEST 2V PA LATERAL EXAM: XR CHEST 2V PA LATERAL CLINICAL HISTORY: n/v/d, elev trop TECHNIQUE: 2D digital imaging was performed of the chest. Two images were obtained. AP and lateral views were obtained. COMPARISON: CR XR CHEST 2V PA LATERAL from 09/07/2024 FINDINGS: There is poor inspiration. MEDIASTINUM: Normal. HEART: Normal. PULMONARY VASCULATURE: Normal. LUNGS: There is an ovoid opacity seen in the right mid lung. This was not present on the prior examination from August 2024. The left lung is clear. PLEURAL SPACE: No pleural effusion or pneumothorax. BONE:Within normal limits for the patient's age. OTHER FINDINGS:Normal. IMPRESSION: New opacity in the right mid lung. Differential considerations include pulmonary nodule, infiltrate or atelectasis. Follow-up as clinically appropriate. This may include a repeat chest x-ray in 7-[address] scan of the chest. DATA REPOSITORY: RADIATION DOSE DELIVERED:
[2025-02-07 11:19] LABS: Troponin I 62 ng/L (<or=51)
--- NOTE | 2025-02-07 11:59 | DI.CT_ITS ---
Exam(s) CT HEAD WO EXAM: CT HEAD WO CLINICAL HISTORY: forehead bruise, vomiting. TECHNIQUE: Imaging Protocol: Axial computed tomography images with coronal and sagittal reformatted images were created and reviewed COMPARISON: CT CT HEAD WO from 02/17/2023 FINDINGS: The examination is limited due to patient motion artifact.The patient has a CT scan of the abdomen and pelvis with contrast prior to the CT head examination. Ventricles and Extra axial spaces: Normal in size and morphology for the patient's age. Hemorrhage: None. Cerebral parenchyma: No evidence of an acute territorial infarct or mass effect. Midline shift: None. Brainstem/Cerebellum: Normal. Calvarium: Normal. Visualized Paranasal sinuses/Mastoids: Clear. Soft Tissues: Unremarkable. IMPRESSION: 1. The examination is limited due to patient motion artifact.. 2. The patient has a CT scan of the abdomen and pelvis with contrast earlier in the day. 3. No acute intracranial process. RADIATION DOSE DELIVERED: 806.59mGy.cm Total DLP DATA REPOSITORY: All CT scans at this facility are submitted to the National Radiology Data Registry (NRDR) Dose Index Registry (DIR) with the [employer] (ACR). RADIATION OPTIMIZATION: All CT scans at this facility use at least one of these dose optimization techniques: automated exposure control; mA and/or kV adjustment per patient size (includes targeted exams where dose is matched to clinical indication); or iterative reconstruction.
[2025-02-07] MEDS: Aspirin 81 MG CHEW 324 MG CH (12:30)
[2025-02-07] MEDS: Normal Saline 500 ML IV (12:50)
[2025-02-07 13:03] LABS: Troponin I 71 ng/L (<or=51)
--- NOTE | 2025-02-07 14:45 | RT.EKG_ITS ---
APPROVED REPORT Exam: Resting ECG Reason for Exam: posterior Patient Location: E HR:75 bpm ECG Measurements Heart Rate 75 AXIS ID 161 P 38 QRSd 143 QRS -52 QT 481 T 100 QTc 522 Conclusion Sinus rhythm...normal P axis, V-rate 60- 99 Atrial premature complex...SV complex w/ short R-R interval RBBB and LAFB...QRSd >120mS, axis(-40,240) LVH with secondary repolarization abnormality...multi-LVH criteria, abnrm ST-T Probable lateral infarct, age indeterminate...Q >35mS, T neg, V5-V6 I aVL Posterior ECG not showing ST segment elevation beyond mild elevation in lead III. No Occlusion [place]
--- NOTE | 2025-02-07 14:45 | RT.EKG_ITS ---
APPROVED REPORT Exam: Resting ECG Reason for Exam: R-sided Patient Location: E HR:72 bpm ECG Measurements Heart Rate 72 AXIS WI 152 P 5 QRSd 143 QRS -50 QT 436 T 142 QTc 467 Conclusion Sinus rhythm...normal P axis, V-rate 60- 99 Atrial premature complex...SV complex w/ short R-R interval Right bundle branch block...QRSd>120, terminal axis(90,270) LVH with secondary repolarization abnormality...multi-LVH criteria, abnrm ST-T Anterolateral infarct, age indeterminate...Q >35mS, flat/neg T, V3-V6,I,aVL Right-sided ECG concerning for the possibility ST segment elevation in V4 through V6. No Occlusion [place]
[2025-02-07 15:42] LABS: Bilirubin Small (Negative); Blood Trace-intact (Negative); Clarity Clear (Clear); Glucose Negative (Negative); Ketones Trace mg/dL (Negative); Leukocyte Esterase Negative (Negative); Nitrite Negative (Negative); Urobilinogen 0.2 mg/dL (Up to 0.2)
--- NOTE | 2025-02-07 15:42 | W.PM.HP.N ---
Date of service: 02/07/25 Time of Service: 15:43 Assessment and Plan Assessment and plan (1) Non-ST elevation WI (NSTEMI): Status: Acute Assessment and plan: As per HPI On heparin drip Troponin max at 71 now 56 ; EKG showed dynamic changes [facility] cardiology consult completed in ED - accepted Repeat in AM unless symptomatic or change on telemetry Continue diuretics and anti-hypertensive medicines On home dose beta blockers (2) Chronic pain disorder: Status: Chronic Assessment and plan: PRN APAP and home medicines (3) GERD (gastroesophageal reflux disease): Status: Chronic Assessment and plan: PPI IV resume home meds on d/c (4) Diabetes mellitus: Status: Chronic Assessment and plan: Gluc AC & HS with SSI home dose Lantus- will reduce by 50% when NPO (5) Renal insufficiency: Status: Chronic Assessment and plan: Cr 1.2 not in CASH BMP in AM discussed with Dr. Harmon History of Present Illness History of Present Illness Chief Complaint: Nausea vomiting diarrhea, wekness, fall, LLE pain Narrative: This 69 year-old female with PMHx vertigo, stroke, liver disease, irregular heartbeat, basal cell carcinoma, hyperlipidemia, gait abnormality, history of DVT, MOELLER, T2DM, asthma, history of UTIs, cardiomegaly, polypharmacy of presented to ED today by POV/wheelchair'd in with family with a chief complaint of nausea/vomiting, diarrhea for the past couple days, with worsening generalized weakness , L leg pain, mild abdominal pain. Multiple falls at home reported with stable bruising to the forehead with negative head CT. Work-up was positive for trending up troponins and EKG changes lead I, V4, V5, V6, shows inverted T waves in V2 V3, question some ST elevation in lead III, also inverted T waves with some ST depression in aV and dynamic changes, worsening ST elevation in lead III, somewhat improved ST depression V4 V5 V6 as per ED provider's interpretation . CBC was unremarkable w/o leukocytosis. chemistry showed lactate at 2.8 in the setting of emesis history, hypokalemia at 3.3, magnesium at 1.5 with IV repletion completed in the ED, Cr around baseline at 1.2. CT abdomen and pelvis negative for actinable findings. Ches[place] XR showed a new opacity in the right mid lung with consideration for pulmonary nodule, infiltrate or atelectasis. S/p [facility] cardiology consultation the patient was accepted by Dr. Diaz pending bed availability in AM with recommendation for heparin drip , no plavix, but requested a R-side and posterior EKG. Full code status confirmed; patient denied dizziness/weakness, no radiation to slurred speech, neck pain, chest pain, shortness of breath, fever, cough, dysuria, flank pain, endorses mid-back pain. Hospitalist , Dr. Harmon accepted the patient for admission for NSTEMI on the medical surgical floor for heparinization and troponins trending pending bed at [facility]. Review of Systems All systems reviewed & are unremarkable except as noted in HPI and below PFSH All Active Problems (Updated 02/07/25 @ 15:07 by KATHI Shi) Non-ST elevation WI (NSTEMI) (Acute) Chronic pain disorder (Chronic) Lumbar radiculitis (Acute) Postlaminectomy syndrome of lumbar region (Acute) GERD (gastroesophageal reflux disease) (Chronic) Diffuse spasm of esophagus (Acute) Spondylosis (Acute) Cardiomegaly (Acute) Heart murmur (Acute) Mild intermittent asthma (Acute) Pure hypercholesterolemia (Acute) Lymphedema (Acute) Peripheral venous insufficiency (Acute) Spasm of back muscles (Acute) Actinic keratosis (Acute) Aortic valve stenosis, nonrheumatic (Acute) Acute bronchitis (Acute) Fatigue (Acute) Nausea (Acute) Chronic cough (Acute) Snoring (Acute) Dyspnea on exertion (Acute) Daytime somnolence (Acute) Exacerbation of intermittent asthma (Acute) Otitis externa (Acute) Insomnia (Acute) Candidiasis of mouth (Acute) Influenza A (Acute) Diabetes mellitus (Chronic) Psoriatic arthritis (Acute) Renal insufficiency (Chronic) Polypharmacy (Acute) Bacteremia (Acute) Pneumonia (Acute) COVID (Acute) Cellulitis and abscess of foot (Acute) Contusion of right foot (Acute) Sepsis (Acute) Bone infection of left foot (Acute) Status post total left knee replacement (Acute) Pain (Acute) Lower extremity pain (Acute) Medical History Effusion of knee Vertigo Urinary disorder Skin disorder Syncope Musculoskeletal disease Motion sickness Liver disease Irregular heart beat Infection Genital disease, female Eye problem ENT disease Elevated cholesterol Digestive problems Complication of anesthesia Circulatory disease Cancer Breathing problem Basal cell carcinoma Chest pain Postoperative anemia due to acute blood loss Hyperlipidemia Hepatosplenomegaly Gait abnormality DVT (deep venous thrombosis) Complex regional pain syndrome type 2 of lower extremity Spinal stenosis Age related osteoporosis Abnormal liver function Failed total knee arthroplasty Fecal impaction Crushing injury of unspecified knee, sequela Chronic prescription opiate use History of falling Obesity Rupture of left quadriceps tendon Fracture of metatarsal of left foot, closed Pain in right ankle and joints of right foot Psoriasis Prepatellar bursitis Quadriceps tendon rupture History of basal cell carcinoma Loose orthopedic implant MOELLER (nonalcoholic steatohepatitis) Type 2 diabetes mellitus Asthma Arthritis Elevated troponin Severe sepsis Acute UTI Chronic pain Edema, peripheral Bacteremia due to group B Streptococcus Surgical History History of endoscopy History of laparotomy Hx of colonoscopy Status post left knee replacement Artificial knee joint present History of arthroplasty of left knee History of total knee arthroplasty History of lumbar surgery S/P revision of total knee Hx of hysterectomy Hx of spinal surgery Hx of laminectomy History of left knee replacement s/p revision for infected prosthesis Family History Brother Cancer family hx of cancer Sister Cancer Diabetes High cholesterol Hypertension Father Stroke Diabetes Coronary artery disease Heart disease High cholesterol Hypertension Thrombophilia Mother Mental disorder Osteoporosis Maternal Grandmother Breast cancer Cancer Sister High cholesterol Hypertension Diabetes Social History Smoking/Tobacco Use Status: Never Smoking risk assessment performed?: Yes Alcohol Intake: current Alcohol Intake frequency: holidays/special occasions only Drug use: Never Substance use type: marijuana Details: occasionally will do a THC edible Housing: house Do you feel safe at home: Yes Do you feel safe in your relationship?: Yes Additional Social history: Lives with in [place]. 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 Meds Allergies and Home Medications Allergies Allergy/AdvReac Type Severity Reaction Status Date / Time capsaicin Allergy Severe Anaphylaxsi Unverified 02/07/25 08:28 s clarithromycin (From Biaxin) Allergy Intermediate Skin Rash Unverified 02/07/25 08:28 Penicillins Allergy Intermediate Skin Rash Unverified 02/07/25 08:28 Sulfa (Sulfonamide Allergy Intermediate Skin Rash Unverified 02/07/25 08:28 Antibiotics) nickel Allergy Mild Itching Unverified 02/07/25 08:28 acitretin Allergy Unknown Swelling/Ed Unverified 02/07/25 08:28 tc amoxicillin Allergy Unknown Unknown Unverified 02/07/25 08:28 jiang pepper Allergy Unknown Unknown Unverified 02/07/25 08:28 cefazolin Allergy Unknown Unknown Unverified 02/07/25 08:28 gabapentin Allergy Unknown Dizziness/L Unverified 02/07/25 08:28 ighthead infliximab (From Remicade) Allergy Unknown passed out Unverified 02/07/25 08:28 isoniazid Allergy Unknown Unknown Unverified 02/07/25 08:28 oxycodone Allergy Unknown Other (See Unverified 02/07/25 08:28 Comment) tramadol Allergy Unknown Other (See Unverified 02/07/25 08:28 Comment) Home Medications ?Medication ?Instructions ?Recorded ?Confirmed ?Type albuterol sulfate 2.5 mg/3 mL 1 unit inhalation QID PRN 01/11/14 02/07/25 History (0.083 %) solution for nebulization esomeprazole magnesium 40 mg 40 mg PO DAILY 01/11/14 02/07/25 History capsule,delayed release (Nexium) leflunomide 20 mg tablet (Arava) 20 mg PO DAILY 01/11/14 02/07/25 History methylprednisolone 4 mg tablet 4 mg PO DAILY 01/11/14 02/07/25 History zolpidem 10 mg tablet 10 mg PO HS 01/11/14 02/07/25 History aspirin 81 mg chewable tablet 81 mg PO DAILY 04/09/19 02/07/25 History insulin lispro 100 unit/mL See Rx Instructions .Route .COMPLEX 04/09/19 02/07/25 History subcutaneous pen (Humalog KwikPen (U-100) Insulin) multivitamin with minerals-iron 1 mg PO DAILY 04/09/19 02/07/25 History fumarate 9 mg iron/15 mL oral liquid (Multi Vitamin) ondansetron HCl 4 mg tablet 4 mg PO Q8H PRN PRN 05/10/22 02/07/25 History albuterol sulfate 90 mcg/actuation 2 puff inhalation Q4H PRN PRN #8.5 05/13/22 02/07/25 Rx aerosol inhaler (Ventolin HFA) grams atorvastatin 20 mg tablet 20 mg PO QPM 08/26/23 02/07/25 History indapamide 2.5 mg tablet 2.5 mg PO DAILY 08/27/23 02/07/25 History insulin glargine 100 unit/mL (3 24 unit subcut QAM 08/27/23 02/07/25 History mL) subcutaneous pen (Lantus Solostar U-100 Insulin) lisinopril 10 mg tablet 10 mg PO DAILY 09/30/23 02/07/25 History montelukast 10 mg tablet 10 mg PO QHS 09/30/23 02/07/25 History (Singulair) calcium citrate 200 mg PO DAILY 10/01/23 02/07/25 History folic acid 800 mcg tablet 0.8 mg PO DAILY 10/01/23 02/07/25 History acetaminophen 650 mg See Rx Instructions PO TID PRN 12/11/23 02/07/25 History tablet,extended release (Tylenol Arthritis Pain) amlodipine 5 mg tablet 5 mg PO DAILY 12/11/23 02/07/25 History cholecalciferol (vitamin D3) 50 50 mcg PO DAILY 12/11/23 02/07/25 History mcg (2,000 unit) capsule duloxetine 60 mg capsule,delayed 60 mg PO DAILY 12/11/23 02/07/25 History release elderberry fruit See Rx Instructions PO DIRECTED 12/11/23 02/07/25 History metoprolol tartrate 100 mg tablet 100 mg PO DAILY 12/11/23 02/07/25 History nystatin 100,000 unit/mL oral See Rx Instructions PO DIRECTED 12/11/23 02/07/25 History suspension fluconazole 100 mg tablet 100 mg PO DAILY PRN 03/16/24 02/07/25 History ipratropium 0.5 mg-albuterol 3 mg 3 ml inhalation Q4H PRN 03/16/24 02/07/25 History (2.5 mg base)/3 mL nebulization soln tizanidine 2 mg tablet 2 mg PO Q8H PRN 03/16/24 02/07/25 History Exam Narrative Exam Narrative: 69 years old female patient appearing older than stated age, non acute distress , alert and oriented X 4, forgetful at times, no focal neurological deficits, clear lungs, S1, S2, regular, no murmur, positive pulses to all 4 ext,Abdomen is , non-distended, soft, non-tender, moves all 4 ext. Results Labs 02/07/25 08:40 02/07/25 08:40 Labs: Laboratory Results - last 24 hr 02/07/25 02/07/25 02/07/25 08:40 09:25 10:30 WBC 10.01 RBC 4.35 Hgb 13.0 Hct 39.9 MCV 92 MCH 29.9 MCHC 32.6 RDW 14.0 Plt Count 228 MPV 10.7 Immature Gran % 0.4 Neutrophils % 87.0 Lymphocytes % 8.1 Monocytes % 3.3 Eosinophils % 0.2 Basophils % 1.0 Nucleated RBC % 0.0 Absolute Neutrophils 8.71 H Absolute Lymphocytes 0.81 L Absolute Monocytes 0.33 Absolute Eosinophils 0.02 Absolute Basophils 0.10 VBG Lactate 2.8 H* Sodium 136 Potassium 3.3 L Chloride 96 L Carbon Dioxide 27.5 Anion Gap 12.5 H BUN 21 H Creatinine 1.2 H Est GFR (CKD-EPI 2020) 49.31 Glucose 197 H Calcium 9.0 Magnesium 1.5 L Total Bilirubin 1.1 H AST 55 H ALT 42 Alkaline Phosphatase 102 Troponin I 52 H* 62 H* Total Protein 7.1 Albumin 3.3 L Lipase 10 Add-On Test Request DONE 02/07/25 12:27 WBC RBC Hgb Hct MCV MCH MCHC RDW Plt Count MPV Immature Gran % Neutrophils % Lymphocytes % Monocytes % Eosinophils % Basophils % Nucleated RBC % Absolute Neutrophils Absolute Lymphocytes Absolute Monocytes Absolute Eosinophils Absolute Basophils VBG Lactate Sodium Potassium Chloride Carbon Dioxide Anion Gap BUN Creatinine Est GFR (CKD-EPI 2020) Glucose Calcium Magnesium Total Bilirubin AST ALT Alkaline Phosphatase Troponin I 71 H* Total Protein Albumin Lipase Add-On Test Request Last Vital Signs Temp 37.3 C 02/07/25 08:42 Pulse 68 02/07/25 14:40 Resp 16 02/07/25 14:40 BP 122/48 L 02/07/25 14:30 Pulse Ox 94 02/07/25 14:40 Time Spent Time spent with Patient: >75 minutes Time was spent: preparing to see the patient(eg.review tests), obtaining and/or reviewing separately otained hiistory, ordering medications,tests, procedures, referring, communicating with other health direct care specialist, indepentently interpreting results, counseling the patient and care coordination
[2025-02-07] MEDS: Heparin in 0.45% NaCl 25,000 UNIT/250 ML BAG 10 UNIT IVINF (15:50)
[2025-02-07 15:51] LABS: Bacteria Negative HPF (Negative); C & S Indicated? No; Casts Negative LPF (Negative); Crystals Negative HPF (Negative); Epithelial Cells Negative HPF (Negative); Mucus Negative (Negative); WBC Negative HPF (0-5)
[2025-02-07 15:53] LABS: Troponin I 64 ng/L (<or=51)
[2025-02-07 16:17] LABS: INR 1.1 (0.9-1.1); PTT Activated 29.7 sec (20.6-30.2)
--- NOTE | 2025-02-07 16:40 | W.PC.ACHO ---
Registration Status: REG ER Primary Language: Preferred Language: Welsh ED Information & Data Chief Complaint GenMedical 02/07/25 09:32 Triage Note Patient complaining of 02/07/25 08:25 generalized weakness last night. Started this morning with N/V/D Medical / Surgical History (Last Reviewed 10/14/24 @ 18:00 by Andres Cotter MD) Effusion of knee Vertigo Urinary disorder Skin disorder Syncope Musculoskeletal disease Motion sickness Liver disease Irregular heart beat Infection Genital disease, female Eye problem ENT disease Elevated cholesterol Digestive problems Complication of anesthesia Circulatory disease Cancer Breathing problem Basal cell carcinoma Chest pain Postoperative anemia due to acute blood loss Hyperlipidemia Hepatosplenomegaly Gait abnormality DVT (deep venous thrombosis) Complex regional pain syndrome type 2 of lower extremity Spinal stenosis Age related osteoporosis Abnormal liver function Failed total knee arthroplasty Fecal impaction Crushing injury of unspecified knee, sequela Chronic prescription opiate use History of falling Obesity Rupture of left quadriceps tendon Fracture of metatarsal of left foot, closed Pain in right ankle and joints of right foot Psoriasis Prepatellar bursitis Quadriceps tendon rupture History of basal cell carcinoma Loose orthopedic implant MOELLER (nonalcoholic steatohepatitis) Type 2 diabetes mellitus Asthma Arthritis Elevated troponin Severe sepsis Acute UTI Chronic pain Edema, peripheral Bacteremia due to group B Streptococcus (Last Reviewed 10/14/24 @ 18:00 by Andres Cotter MD) History of endoscopy History of laparotomy Hx of colonoscopy Status post left knee replacement Artificial knee joint present History of arthroplasty of left knee History of total knee arthroplasty History of lumbar surgery S/P revision of total knee Hx of hysterectomy Hx of spinal surgery Hx of laminectomy History of left knee replacement Most Recent Vital Signs Temperature 37.3 C 02/07/25 08:42 Temperature Source Oral 02/07/25 08:42 Pulse 68 02/07/25 14:40 Pulse 68 02/07/25 14:40 Respiratory Rate 16 02/07/25 14:40 Respiratory Effort Normal, Non-Labored 02/07/25 08:33 Respiratory Depth Normal 02/07/25 08:33 Respiratory Pattern Normal 02/07/25 08:33 Blood Pressure 122/48 L 02/07/25 14:30 Blood Pressure Mean 72 02/07/25 14:30 Pulse Oximetry 94 02/07/25 14:40 Allergies capsaicin Allergy (Severe, Unverified 02/07/25 08:28) Anaphylaxsis clarithromycin (From Biaxin) Allergy (Intermediate, Unverified 02/07/25 08:28) Skin Rash Penicillins Allergy (Intermediate, Unverified 02/07/25 08:28) Skin Rash Sulfa (Sulfonamide Antibiotics) Allergy (Intermediate, Unverified 02/07/25 08:28) Skin Rash nickel Allergy (Mild, Unverified 02/07/25 08:28) Itching acitretin Allergy (Unknown, Unverified 02/07/25 08:28) Swelling/Edema amoxicillin Allergy (Unknown, Unverified 02/07/25 08:28) Unknown jiang pepper Allergy (Unknown, Unverified 02/07/25 08:28) Unknown cefazolin Allergy (Unknown, Unverified 02/07/25 08:28) Unknown gabapentin Allergy (Unknown, Unverified 02/07/25 08:28) Dizziness/Lighthead infliximab (From Remicade) Allergy (Unknown, Unverified 02/07/25 08:28) passed out isoniazid Allergy (Unknown, Unverified 02/07/25 08:28) Unknown oxycodone Allergy (Unknown, Unverified 02/07/25 08:28) Other (See Comment) Stomach upset has tolerates Oxycodone in the past (7.28.22) tramadol Allergy (Unknown, Unverified 02/07/25 08:28) Other (See Comment) Pt has tolerated oxycodone in the past (7.28.22) Precautions Isolation Standard precaution 02/07/25 08:29 Active Medications Generic Name Dose Route Start Last Admin Trade Name Freq PRN Reason Stop Dose Admin Heparin Sodium/Sodium Chloride 25,000 unit in 250 mls @ 0 mls/hr 02/07/25 15:00 02/07/25 15:50 IVINF 10 mls/hr INFUSION EVELYNE 10 mls/hr Protocol Administration Per Protocol Iohexol 75 ml 02/07/25 10:30 02/07/25 10:16 Omnipaque 350 Mg/Ml 100 Ml Btl IJ 03/09/25 23:59 75 ml DIRECTED EVELYNE Administration Sodium Chloride 50 ml 02/07/25 10:15 02/07/25 10:15 Normal Saline - Diluent 50 Ml Vial IJ 50 ml .FOR DI USE EVELYNE Administration IV IV Catheter Type [Left Saline Lock Antecubital] IV Catheter Type [Right Saline Lock Antecubital] IV Catheter Gauge [Left 20 Antecubital] IV Catheter Gauge [Right 20 Antecubital] Diagnostics 02/07/25 02/07/25 02/07/25 Range/Units 17:49 16:29 15:49 WBC (4.4-10.8) 10^3/uL RBC (3.93-5.22) 10^6/uL Hgb (11.2-15.7) g/dL Hct (36.0-46.0) % MCV (80-95) fL MCH (27.0-33.0) pg MCHC (32.0-36.0) % RDW (11.7-14.6) % Plt Count (130-400) 10^3/uL MPV (8.0-11.0) fL Immature Gran % % Neutrophils % % Lymphocytes % % Monocytes % % Eosinophils % % Basophils % % Nucleated RBC % (0.0-0.3) % Absolute Neutrophils (1.2-6.7) 10^3/uL Absolute Lymphocytes (1.2-3.4) 10^3/uL Absolute Monocytes (0.1-0.8) 10^3/uL Absolute Eosinophils (0.0-0.7) 10^3/uL Absolute Basophils (0.0-0.2) 10^3/uL PT 11.0 INR 1.1 APTT 29.7 VBG Lactate (<or=2.0) mmol/L Sodium (136-145) mmol/L Potassium (3.5-5.1) mmol/L Chloride (98-107) mmol/L Carbon Dioxide (21.0-32.0) mmol/L Anion Gap (3-11) mmol/L BUN (7-18) mg/dL Creatinine (0.55-1.02) mg/dL Est GFR (CKD-EPI 2020) (mL/min/1.73m2) Glucose (74-106) mg/dL Calcium (8.5-10.1) mg/dL Magnesium (1.8-2.4) mg/dL Total Bilirubin (0.2-1.0) mg/dL AST (15-37) U/L ALT (14-59) U/L Alkaline Phosphatase (46-116) U/L Troponin I Pending Pending (<or=51) ng/L Total Protein (6.4-8.2) g/dL Albumin (3.4-5.0) g/dL Lipase (<78) U/L Urine Color (Yellow) Urine Clarity (Clear) Urine pH (5-8) Ur Specific [place] (1.005-1.025) Urine Protein (Neg-Trace) mg/dL Urine Ketones (Negative) mg/dL Urine Blood (Negative) Urine Nitrite (Negative) Urine Bilirubin (Negative) Urine Urobilinogen (Up to 0.2) mg/dL Ur Leukocyte Esterase (Negative) Urine RBC (0-2) HPF Urine WBC (0-5) HPF Ur Epithelial Cells (Negative) HPF Urine Crystals (Negative) HPF Urine Bacteria (Negative) HPF Urine Casts (Negative) LPF Urine Mucus (Negative) Ur Culture Indicated? Urine Glucose (Negative) mg/dL Add-On Test Request 02/07/25 02/07/25 02/07/25 Range/Units 15:26 12:27 10:30 WBC (4.4-10.8) 10^3/uL RBC (3.93-5.22) 10^6/uL Hgb (11.2-15.7) g/dL Hct (36.0-46.0) % MCV (80-95) fL MCH (27.0-33.0) pg MCHC (32.0-36.0) % RDW (11.7-14.6) % Plt Count (130-400) 10^3/uL MPV (8.0-11.0) fL Immature Gran % % Neutrophils % % Lymphocytes % % Monocytes % % Eosinophils % % Basophils % % Nucleated RBC % (0.0-0.3) % Absolute Neutrophils (1.2-6.7) 10^3/uL Absolute Lymphocytes (1.2-3.4) 10^3/uL Absolute Monocytes (0.1-0.8) 10^3/uL Absolute Eosinophils (0.0-0.7) 10^3/uL Absolute Basophils (0.0-0.2) 10^3/uL PT Cancelled INR Cancelled APTT Cancelled VBG Lactate (<or=2.0) mmol/L Sodium (136-145) mmol/L Potassium (3.5-5.1) mmol/L Chloride (98-107) mmol/L Carbon Dioxide (21.0-32.0) mmol/L Anion Gap (3-11) mmol/L BUN (7-18) mg/dL Creatinine (0.55-1.02) mg/dL Est GFR (CKD-EPI 2020) (mL/min/1.73m2) Glucose (74-106) mg/dL Calcium (8.5-10.1) mg/dL Magnesium (1.8-2.4) mg/dL Total Bilirubin (0.2-1.0) mg/dL AST (15-37) U/L ALT (14-59) U/L Alkaline Phosphatase (46-116) U/L Troponin I 64 H* 71 H* 62 H* (<or=51) ng/L Total Protein (6.4-8.2) g/dL Albumin (3.4-5.0) g/dL Lipase (<78) U/L Urine Color Yellow (Yellow) Urine Clarity Clear (Clear) Urine pH 6.0 (5-8) Ur Specific [place] 1.010 (1.005-1.025) Urine Protein >=300 H (Neg-Trace) mg/dL Urine Ketones Trace H (Negative) mg/dL Urine Blood Trace-intact H (Negative) Urine Nitrite Negative (Negative) Urine Bilirubin Small H (Negative) Urine Urobilinogen 0.2 (Up to 0.2) mg/dL Ur Leukocyte Esterase Negative (Negative) Urine RBC 3-5 H (0-2) HPF Urine WBC Negative (0-5) HPF Ur Epithelial Cells Negative (Negative) HPF Urine Crystals Negative (Negative) HPF Urine Bacteria Negative (Negative) HPF Urine Casts Negative (Negative) LPF Urine Mucus Negative (Negative) Ur Culture Indicated? No Urine Glucose Negative (Negative) mg/dL Add-On Test Request 02/07/25 02/07/25 Range/Units 09:25 08:40 WBC 10.01 (4.4-10.8) 10^3/uL RBC 4.35 (3.93-5.22) 10^6/uL Hgb 13.0 (11.2-15.7) g/dL Hct 39.9 (36.0-46.0) % MCV 92 (80-95) fL MCH 29.9 (27.0-33.0) pg MCHC 32.6 (32.0-36.0) % RDW 14.0 (11.7-14.6) % Plt Count 228 (130-400) 10^3/uL MPV 10.7 (8.0-11.0) fL Immature Gran % 0.4 % Neutrophils % 87.0 % Lymphocytes % 8.1 % Monocytes % 3.3 % Eosinophils % 0.2 % Basophils % 1.0 % Nucleated RBC % 0.0 (0.0-0.3) % Absolute Neutrophils 8.71 H (1.2-6.7) 10^3/uL Absolute Lymphocytes 0.81 L (1.2-3.4) 10^3/uL Absolute Monocytes 0.33 (0.1-0.8) 10^3/uL Absolute Eosinophils 0.02 (0.0-0.7) 10^3/uL Absolute Basophils 0.10 (0.0-0.2) 10^3/uL PT INR APTT VBG Lactate 2.8 H* (<or=2.0) mmol/L Sodium 136 (136-145) mmol/L Potassium 3.3 L (3.5-5.1) mmol/L Chloride 96 L (98-107) mmol/L Carbon Dioxide 27.5 (21.0-32.0) mmol/L Anion Gap 12.5 H (3-11) mmol/L BUN 21 H (7-18) mg/dL Creatinine 1.2 H (0.55-1.02) mg/dL Est GFR (CKD-EPI 2020) 49.31 (mL/min/1.73m2) Glucose 197 H (74-106) mg/dL Calcium 9.0 (8.5-10.1) mg/dL Magnesium 1.5 L (1.8-2.4) mg/dL Total Bilirubin 1.1 H (0.2-1.0) mg/dL AST 55 H (15-37) U/L ALT 42 (14-59) U/L Alkaline Phosphatase 102 (46-116) U/L Troponin I 52 H* (<or=51) ng/L Total Protein 7.1 (6.4-8.2) g/dL Albumin 3.3 L (3.4-5.0) g/dL Lipase 10 (<78) U/L Urine Color (Yellow) Urine Clarity (Clear) Urine pH (5-8) Ur Specific [place] (1.005-1.025) Urine Protein (Neg-Trace) mg/dL Urine Ketones (Negative) mg/dL Urine Blood (Negative) Urine Nitrite (Negative) Urine Bilirubin (Negative) Urine Urobilinogen (Up to 0.2) mg/dL Ur Leukocyte Esterase (Negative) Urine RBC (0-2) HPF Urine WBC (0-5) HPF Ur Epithelial Cells (Negative) HPF Urine Crystals (Negative) HPF Urine Bacteria (Negative) HPF Urine Casts (Negative) LPF Urine Mucus (Negative) Ur Culture Indicated? Urine Glucose (Negative) mg/dL Add-On Test Request DONE Intake and Output - 24 Hour Total 02/07/25 08:18 thru 02/07/25 13:50 Intake Total 1750 Balance 1750 Weight 87.997 kg Intake: IV 1750 Problems (Last Reviewed 10/14/24 @ 18:00 by Andres Cotter MD) Non-ST elevation DE (NSTEMI) (Acute) Chronic pain disorder (Chronic) GERD (gastroesophageal reflux disease) (Chronic) Diabetes mellitus (Chronic) Renal insufficiency (Chronic) v v v v v v v v v Sending and/or Receiving Nurses: Please use comment section below to note any information pertinent to the patient hand-off not included above. Information / Comments: Report received from: CAll placed to ED at 16:27, report received from Yesenia DE SANTIAGO. Pt was lethargic upon admit to the ED, has cleared to A&Ox4, too weak to walk, so they straight cathed her to send a UA. Heparin started at 10ml/hr, next PTT is due 2200. She has Albino with her, a family member. [facility] [place] note and will transfer tomorrow.
[2025-02-07 16:59] LABS: Troponin I 56 ng/L (<or=51)
[2025-02-07] MEDS: Pantoprazole 40 MG VIAL IVP (17:55)
[2025-02-07] MEDS: Normal Saline Flush 10 ML SYR IVP (17:56)
[2025-02-07] MEDS: Acetaminophen 325 MG TAB 650 MG PO (17:56)
--- NOTE | 2025-02-07 19:15 | DSE_ITS ---
Date of service: 02/07/25 Time of Service: 19:16 DS: Diagnosis Discharge Diagnosis (1) Non-ST elevation KS (NSTEMI): Status: Acute (2) Chronic pain disorder: Status: Chronic (3) GERD (gastroesophageal reflux disease): Status: Chronic (4) Diabetes mellitus: Status: Chronic (5) Renal insufficiency: Status: Chronic Discharge Plan Disposition Specific Acute Inpt Facility: [facility] Condition: Stable Condition: Stable Discharge Details Reason For Visit: NSTEMI Admit Date/Time: 02/07/25 16:02 Admit Provider: Abdullahi Harmon Attending Provider: Abdullahi Harmon Primary Care Provider: Melissa Garcia Hospital Course Hospital Course: This 69 year-old female with PMHx vertigo, stroke, liver disease, irregular heartbeat, basal cell carcinoma, hyperlipidemia, gait abnormality, history of DVT, MOELLER, T2DM, asthma, history of UTIs, cardiomegaly, polypharmacy of presented to ED today by POV/wheelchair'd in with family with a chief complaint of nausea/vomiting, diarrhea for the past couple days, with worsening generalized weakness , L leg pain, mild abdominal pain. Multiple falls at home reported with stable bruising to the forehead with negative head CT. Work-up was positive for trending up troponins and EKG changes lead I, V4, V5, V6, shows inverted T waves in V2 V3, question some ST elevation in lead III, al so inverted T waves with some ST depression in aV and dynamic changes, worsening ST elevation in lead III, somewhat improved ST depression V4 V5 V6 as per ED provider's interpretation . CBC was unremarkable w/o leukocytosis. chemistry showed lactate at 2.8 in the setting of emesis history, hypokalemia at 3.3, magnesium at 1.5 with IV repletion completed in the ED, Cr around baseline at 1.2. CT abdomen and pelvis negative for actionable findings. Chest XR showed a new opacity in the right mid lung with consideration for pulmonary nodule, infiltrate or atelectasis. [place] [facility] [place] the patient was accepted by Dr. Diaz pending bed availability in AM with recommendation for heparin drip , no plavix, but requested a R-side and posterior EKG. Full code status confirmed; patient denied dizziness/weakness, no radiation to slurred speech, neck pain, chest pain, shortness of breath, fever, cough, dysuria, flank pain, endorses mid-back pain. Hospitalist , Dr. Harmon accepted the patient for admission for NSTEMI on the medical surgical floor for heparinization and troponins trending pending [place] [facility] [place] Troponin maxed at 71 followed by down trended to 56. Discussed with Dr. Harmon Home Meds and New Rx's Prescriptions: No Action ipratropium-albuterol 0.5 mg-3 mg(2.5 mg base)/3 mL solution for nebulization 3 ml inhalation Q4H PRN tizanidine 2 mg tablet 2 mg PO Q8H PRN fluconazole 100 mg tablet 100 mg PO DAILY PRN amlodipine 5 mg tablet 5 mg PO DAILY cholecalciferol (vitamin D3) 50 mcg (2,000 unit) capsule 50 mcg PO DAILY duloxetine 60 mg capsule,delayed release(DR/EC) 60 mg PO DAILY elderberry fruit See Rx Instructions PO DIRECTED Rx Instructions: orally as directed; metoprolol tartrate 100 mg tablet 100 mg PO DAILY nystatin 100,000 unit/mL suspension See Rx Instructions PO DIRECTED Rx Instructions: orally as directed; swish and swallow acetaminophen [Tylenol Arthritis Pain] 650 mg tablet extended release See Rx Instructions PO TID PRN Rx Instructions: orally three times a day PRN; albuterol sulfate 3 ML solution for nebulization 1 unit Inhalation QID PRN Patient Comments: 02/10/14- pt has not used for months, per pt methylprednisolone 4 MG tablet 4 mg PO DAILY leflunomide [Arava] 20 MG tablet 20 mg PO DAILY esomeprazole magnesium [Nexium] 40 MG capsule,delayed release(DR/EC) 40 mg PO DAILY zolpidem 10 MG tablet 10 mg PO HS ondansetron HCl 4 mg tablet 4 mg PO Q8H PRN PRN albuterol sulfate [Ventolin HFA] 90 mcg/actuation Hfa Aerosol Inhaler 2 puff inhalation Q4H PRN PRNQty: 8.5 0RF montelukast [Singulair] 10 mg tablet 10 mg PO QHS lisinopril 10 mg tablet 10 mg PO DAILY calcium citrate 200 mg (950 mg) tablet 200 mg PO DAILY Patient Comments: TAKE ONE TABLET BY MOUTH ONCE DAILY folic acid 800 mcg tablet 0.8 mg PO DAILY Patient Comments: TAKE ONE TABLET BY MOUTH EVERY DAY IN THE MORNING. aspirin 81 mg Tablet,Chewable 81 mg PO DAILY Multi Vitamin 9 mg iron/15 mL Liquid 1 mg PO DAILY insulin lispro [Humalog KwikPen Insulin] 100 unit/mL Insulin Pen See Rx Instructions .ROUTE .COMPLEX Rx Instructions: Original sig- 10 units+SS sc tid with meals. Pt often skips breakfast and lunch dosing due to BG in range, normally injects 14 units sc with evening meal atorvastatin 20 mg tablet 20 mg PO QPM Patient Comments: TAKE 1 TABLET BY MOUTH EVERY NIGHT AT BEDTIME insulin glargine [Lantus Solostar U-100 Insulin] 100 unit/mL (3 mL) insulin pen 24 unit SUBCUT QAM indapamide 2.5 mg tablet 2.5 mg PO DAILY Patient Comments: TAKE ONE TABLET BY MOUTH ONCE DAILY DS: Summary Time Spent with Patient providing and/or coordinating discharge services: Greater than 30 minutes Status at Discharge Functional status at discharge: uses cane/walker Overall status at discharge: patient is not back to baseline Mental Status: mental status grossly normal Speech and Movement: speech and movement normal Mood: congruent mood Affect: normal affect Exam Narrative Exam Narrative: 69 years old female patient appearing older than stated age, non acute distress , alert and oriented X 4, forgetful at times, no focal neurological deficits, clear lungs, S1, S2, regular, no murmur, positive pulses to all 4 ext,Abdomen is , non-distended, soft, non-tender, moves all 4 ext. Psych Mental Status: mental status grossly normal Speech and Movement: speech and movement normal Mood: congruent mood Affect: normal affect DS: Data Vitals/I&O Vitals and I&O: Vital Signs Temperature 36.9 C 02/07/25 17:21 Temperature Source Oral 02/07/25 08:42 Pulse 69 02/07/25 17:21 Pulse Rhythm Irregular 02/07/25 17:21 Pulse 68 02/07/25 14:40 Respiratory Rate 16 02/07/25 17:21 Respiratory Effort Normal 02/07/25 17:21 Respiratory Depth Normal 02/07/25 17:21 Respiratory Pattern Normal 02/07/25 08:33 Blood Pressure 128/58 L 02/07/25 17:21 Blood Pressure Mean 72 02/07/25 14:30 Pulse Oximetry 99 02/07/25 17:21 Oxygen Delivery Method Room Air 02/07/25 17:21 Oxygen Flow Rate 0 02/07/25 17:21 Pain Level 8 02/07/25 17:21 Intake & Output 02/06/25 02/07/25 02/07/25 23:59 11:59 23:59 Intake Total 1100 / 1760.667 660.667 / 1760.667 Balance 1100 / 1760.667 660.667 / 1760.667 Weight 87.997 kg 87.997 kg Intake: IV 1100 / 1760.667 660.667 / 1760.667 Data Completed and Pending Labs on day of discharge: Labs from last 24 hours 02/07/25 02/07/25 02/07/25 18:26 16:29 15:49 WBC RBC Hgb Hct MCV MCH MCHC RDW Plt Count MPV Immature Gran % Neutrophils % Lymphocytes % Monocytes % Eosinophils % Basophils % Nucleated RBC % Absolute Neutrophils Absolute Lymphocytes Absolute Monocytes Absolute Eosinophils Absolute Basophils PT 11.0 INR 1.1 APTT 29.7 VBG Lactate Sodium Potassium Chloride Carbon Dioxide Anion Gap BUN Creatinine Est GFR (CKD-EPI 2020) Glucose Calcium Magnesium Total Bilirubin AST ALT Alkaline Phosphatase Troponin I Pending 56 H* Total Protein Albumin Lipase Urine Color Urine Clarity Urine pH Ur Specific Webster Urine Protein Urine Ketones Urine Blood Urine Nitrite Urine Bilirubin Urine Urobilinogen Ur Leukocyte Esterase Urine RBC Urine WBC Ur Epithelial Cells Urine Crystals Urine Bacteria Urine Casts Urine Mucus Ur Culture Indicated? Urine Glucose Add-On Test Request 02/07/25 02/07/25 02/07/25 15:26 12:27 10:30 WBC RBC Hgb Hct MCV MCH MCHC RDW Plt Count MPV Immature Gran % Neutrophils % Lymphocytes % Monocytes % Eosinophils % Basophils % Nucleated RBC % Absolute Neutrophils Absolute Lymphocytes Absolute Monocytes Absolute Eosinophils Absolute Basophils PT Cancelled INR Cancelled APTT Cancelled VBG Lactate Sodium Potassium Chloride Carbon Dioxide Anion Gap BUN Creatinine Est GFR (CKD-EPI 2020) Glucose Calcium Magnesium Total Bilirubin AST ALT Alkaline Phosphatase Troponin I 64 H* 71 H* 62 H* Total Protein Albumin Lipase Urine Color Yellow Urine Clarity Clear Urine pH 6.0 Ur Specific Webster 1.010 Urine Protein >=300 H Urine Ketones Trace H Urine Blood Trace-intact H Urine Nitrite Negative Urine Bilirubin Small H Urine Urobilinogen 0.2 Ur Leukocyte Esterase Negative Urine RBC 3-5 H Urine WBC Negative Ur Epithelial Cells Negative Urine Crystals Negative Urine Bacteria Negative Urine Casts Negative Urine Mucus Negative Ur Culture Indicated? No Urine Glucose Negative Add-On Test Request 02/07/25 02/07/25 09:25 08:40 WBC 10.01 RBC 4.35 Hgb 13.0 Hct 39.9 MCV 92 MCH 29.9 MCHC 32.6 RDW 14.0 Plt Count 228 MPV 10.7 Immature Gran % 0.4 Neutrophils % 87.0 Lymphocytes % 8.1 Monocytes % 3.3 Eosinophils % 0.2 Basophils % 1.0 Nucleated RBC % 0.0 Absolute Neutrophils 8.71 H Absolute Lymphocytes 0.81 L Absolute Monocytes 0.33 Absolute Eosinophils 0.02 Absolute Basophils 0.10 PT INR APTT VBG Lactate 2.8 H* Sodium 136 Potassium 3.3 L Chloride 96 L Carbon Dioxide 27.5 Anion Gap 12.5 H BUN 21 H Creatinine 1.2 H Est GFR (CKD-EPI 2020) 49.31 Glucose 197 H Calcium 9.0 Magnesium 1.5 L Total Bilirubin 1.1 H AST 55 H ALT 42 Alkaline Phosphatase 102 Troponin I 52 H* Total Protein 7.1 Albumin 3.3 L Lipase 10 Urine Color Urine Clarity Urine pH Ur Specific Webster Urine Protein Urine Ketones Urine Blood Urine Nitrite Urine Bilirubin Urine Urobilinogen Ur Leukocyte Esterase Urine RBC Urine WBC Ur Epithelial Cells Urine Crystals Urine Bacteria Urine Casts Urine Mucus Ur Culture Indicated? Urine Glucose Add-On Test Request DONE PFS All Active Problems (Updated 02/07/25 @ 15:07 by KATHI Shi) Non-ST elevation KS (NSTEMI) (Acute) Chronic pain disorder (Chronic) Lumbar radiculitis (Acute) Postlaminectomy syndrome of lumbar region (Acute) GERD (gastroesophageal reflux disease) (Chronic) Diffuse spasm of esophagus (Acute) Spondylosis (Acute) Cardiomegaly (Acute) Heart murmur (Acute) Mild intermittent asthma (Acute) Pure hypercholesterolemia (Acute) Lymphedema (Acute) Peripheral venous insufficiency (Acute) Spasm of back muscles (Acute) Actinic keratosis (Acute) Aortic valve stenosis, nonrheumatic (Acute) Acute bronchitis (Acute) Fatigue (Acute) Nausea (Acute) Chronic cough (Acute) Snoring (Acute) Dyspnea on exertion (Acute) Daytime somnolence (Acute) Exacerbation of intermittent asthma (Acute) Otitis externa (Acute) Insomnia (Acute) Candidiasis of mouth (Acute) Influenza A (Acute) Diabetes mellitus (Chronic) Psoriatic arthritis (Acute) Renal insufficiency (Chronic) Polypharmacy (Acute) Bacteremia (Acute) Pneumonia (Acute) COVID (Acute) Cellulitis and abscess of foot (Acute) Contusion of right foot (Acute) Sepsis (Acute) Bone infection of left foot (Acute) Status post total left knee replacement (Acute) Pain (Acute) Lower extremity pain (Acute) Medical History Effusion of knee Vertigo Urinary disorder Skin disorder Syncope Musculoskeletal disease Motion sickness Liver disease Irregular heart beat Infection Genital disease, female Eye problem ENT disease Elevated cholesterol Digestive problems Complication of anesthesia Circulatory disease Cancer Breathing problem Basal cell carcinoma Chest pain Postoperative anemia due to acute blood loss Hyperlipidemia Hepatosplenomegaly Gait abnormality DVT (deep venous thrombosis) Complex regional pain syndrome type 2 of lower extremity Spinal stenosis Age related osteoporosis Abnormal liver function Failed total knee arthroplasty Fecal impaction Crushing injury of unspecified knee, sequela Chronic prescription opiate use History of falling Obesity Rupture of left quadriceps tendon Fracture of metatarsal of left foot, closed Pain in right ankle and joints of right foot Psoriasis Prepatellar bursitis Quadriceps tendon rupture History of basal cell carcinoma Loose orthopedic implant MOELLER (nonalcoholic steatohepatitis) Type 2 diabetes mellitus Asthma Arthritis Elevated troponin Severe sepsis Acute UTI Chronic pain Edema, peripheral Bacteremia due to group B Streptococcus Surgical History History of endoscopy History of laparotomy Hx of colonoscopy Status post left knee replacement Artificial knee joint present History of arthroplasty of left knee History of total knee arthroplasty History of lumbar surgery S/P revision of total knee Hx of hysterectomy Hx of spinal surgery Hx of laminectomy History of left knee replacement s/p revision for infected prosthesis Family History Brother Cancer family hx of cancer Sister Cancer Diabetes High cholesterol Hypertension Father Stroke Diabetes Coronary artery disease Heart disease High cholesterol Hypertension Thrombophilia Mother Mental disorder Osteoporosis Maternal Grandmother Breast cancer Cancer Sister High cholesterol Hypertension Diabetes Social History Smoking/Tobacco Use Status: Never Smoking risk assessment performed?: Yes Alcohol Intake: current Alcohol Intake frequency: holidays/special occasions only Drug use: Never Substance use type: marijuana Details: occasionally will do a THC edible Housing: house Do you feel safe at home: Yes Do you feel safe in your relationship?: Yes Additional Social history: Lives with in [place]. 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 Time Spent with Patient Time Spent with Patient: 70-84 minutes4 Time was spent: preparing to see the patient(eg.review tests), obtaining and/or reviewing separately otained hiistory, ordering medications,tests, procedures, referring, communicating with other health customer care assistant, indepentently interpreting results, counseling the patient and care coordination
[2025-02-07 19:33] LABS: Troponin I 59 ng/L (<or=51)
[2025-02-07] MEDS: Prochlorperazine 10 MG/2 ML VIAL 5 MG IVP (19:37)
--- NOTE | 2025-02-08 00:40 | NUR.NOTE ---
Nursing Note: Patient is transferring to [facility] [place] accompanied by two male ambulance personnel. is present in the room and aware about the transfer.
== END 2025-02-07 19:40 | disposition short-term general hospital (02) | DRG 282 ==
LOC: ER 15:07 → MS 16:45
PROVIDERS: Emergency Medicine; Admitting Provider Hospitalist; Emergency Provider Physician Assistant; PCP Family Medicine; Visit Provider Hospitalist
DX: I21.4 Non-ST elevation (NSTEMI) myocardial infarction (principal); R42 Dizziness and giddiness; R11.2 Nausea with vomiting, unspecified; R53.1 Weakness; R10.9 Unspecified abdominal pain; R29.6 Repeated falls; K75.81 Nonalcoholic steatohepatitis (NASH); M79.605 Pain in left leg; I49.9 Cardiac arrhythmia, unspecified; R26.9 Unspecified abnormalities of gait and mobility; E87.6 Hypokalemia; N18.9 Chronic kidney disease, unspecified; K21.9 Gastro-esophageal reflux disease without esophagitis; E11.22 Type 2 diabetes mellitus with diabetic chronic kidney disease; I87.2 Venous insufficiency (chronic) (peripheral); I89.0 Lymphedema, not elsewhere classified; J45.20 Mild intermittent asthma, uncomplicated; E78.00 Pure hypercholesterolemia, unspecified; R01.1 Cardiac murmur, unspecified; I35.0 Nonrheumatic aortic (valve) stenosis; E66.9 Obesity, unspecified; R05.3 Chronic cough; R06.83 Snoring; L40.50 Arthropathic psoriasis, unspecified; Z96.652 Presence of left artificial knee joint; Z86.718 Personal history of other venous thrombosis and embolism; Z79.899 Other long term (current) drug therapy; Z86.73 Personal history of transient ischemic attack (TIA), and cerebral infarction without residual deficits; Z79.4 Long term (current) use of insulin; Z68.32 Body mass index [BMI] 32.0-32.9, adult
CPT/HCPCS: 00123; 36415; 80048; 80053; 83690; 93005; 96361; 96365; 96366; 96367; 96375; 99285; 70450; 71046; 74177; 81003; 81015; 83605; 83735; 84484; 85025; 85610; 85730; 93010; 99223; J0131; J0780; J1644; J1815; J1885; J2405; J2470; J3475; J3480; J3490

== ENCOUNTER 2025-02-11 19:33 | Inpatient (IN) | payer MEDICARE, BC, SELFPAY ==
--- NOTE | 2025-02-11 15:53 | W.PC.ACHO ---
Registration Status: PRE IN Primary Language: Preferred Language: [place] [facility] / Surgical History (Last Reviewed 10/14/24 @ 18:00 by Andres Cotter MD) Effusion of knee Vertigo Urinary disorder Skin disorder Syncope Musculoskeletal disease Motion sickness Liver disease Irregular heart beat Infection Genital disease, female Eye problem ENT disease Elevated cholesterol Digestive problems Complication of anesthesia Circulatory disease Cancer Breathing problem Basal cell carcinoma Chest pain Postoperative anemia due to acute blood loss Hyperlipidemia Hepatosplenomegaly Gait abnormality DVT (deep venous thrombosis) Complex regional pain syndrome type 2 of lower extremity Spinal stenosis Age related osteoporosis Abnormal liver function Failed total knee arthroplasty Fecal impaction Crushing injury of unspecified knee, sequela Chronic prescription opiate use History of falling Obesity Rupture of left quadriceps tendon Fracture of metatarsal of left foot, closed Pain in right ankle and joints of right foot Psoriasis Prepatellar bursitis Quadriceps tendon rupture History of basal cell carcinoma Loose orthopedic implant MOELLER (nonalcoholic steatohepatitis) Type 2 diabetes mellitus Asthma Arthritis Elevated troponin Severe sepsis Acute UTI Chronic pain Edema, peripheral Bacteremia due to group B Streptococcus (Last Reviewed 10/14/24 @ 18:00 by Andres Cotter MD) History of endoscopy History of laparotomy Hx of colonoscopy Status post left knee replacement Artificial knee joint present History of arthroplasty of left knee History of total knee arthroplasty History of lumbar surgery S/P revision of total knee Hx of hysterectomy Hx of spinal surgery Hx of laminectomy History of left knee replacement Allergies capsaicin Allergy (Severe, Unverified 02/07/25 08:28) Anaphylaxsis clarithromycin (From Biaxin) Allergy (Intermediate, Unverified 02/07/25 08:28) Skin Rash Penicillins Allergy (Intermediate, Unverified 02/07/25 08:28) Skin Rash Sulfa (Sulfonamide Antibiotics) Allergy (Intermediate, Unverified 02/07/25 08:28) Skin Rash nickel Allergy (Mild, Unverified 02/07/25 08:28) Itching acitretin Allergy (Unknown, Unverified 02/07/25 08:28) Swelling/Edema amoxicillin Allergy (Unknown, Unverified 02/07/25 08:28) Unknown jiang pepper Allergy (Unknown, Unverified 02/07/25 08:28) Unknown cefazolin Allergy (Unknown, Unverified 02/07/25 08:28) Unknown gabapentin Allergy (Unknown, Unverified 02/07/25 08:28) Dizziness/Lighthead infliximab (From Remicade) Allergy (Unknown, Unverified 02/07/25 08:28) passed out isoniazid Allergy (Unknown, Unverified 02/07/25 08:28) Unknown oxycodone Allergy (Unknown, Unverified 02/07/25 08:28) Other (See Comment) Stomach upset has tolerates Oxycodone in the past (7.28.22) tramadol Allergy (Unknown, Unverified 02/07/25 08:28) Other (See Comment) Pt has tolerated oxycodone in the past (7.28.22) v v v v v v v v v Sending and/or Receiving Nurses: Please use comment section below to note any information pertinent to the patient hand-off not included above. Information / Comments: Report received from:An report from JONNATHAN Maloney at [facility] [place] at [id number]. Full code . Patient will be DC from [facility] and be driven by patient . at time of report, patient VSS, no distress. no CP, n/V. patient assist x 1 with a walker. report generalized pain, PRN medication with good effect. Will assess and admit at time of arrival
[2025-02-11 18:55] VITALS: BP 142/61; PULSE 81; RESP 18; TEMP 36.6; O2SAT 98
--- NOTE | 2025-02-11 18:59 | NUR.NOTE ---
[id number], patient arrived via cwheelchair transport with ad a transfer fro . arrived to unit [id number], VSS, stable, A and o x 4, oriented to room and call jiang. no further intervention at end of this RN shiftg Note:
[2025-02-11 19:40] VITALS: BP 118/57; PULSE 70; RESP 12; TEMP 37.1; O2SAT 97
[2025-02-11] MEDS: Zolpidem 10 MG TAB PO (23:57)
[2025-02-11] MEDS: Metoprolol 50 MG TAB 100 MG PO (23:57)
[2025-02-12 01:45] VITALS: BP 118/57; PULSE 70; RESP 12; TEMP 37.1; O2SAT 97
[2025-02-12] MEDS: Acetaminophen 325 MG TAB 650 MG PO ×3 (06:35→22:35)
--- NOTE | 2025-02-12 09:16 | INITIAL_ITS ---
Date of service: 02/12/25 Time of Service: 09:16 Care Management Initial Assmt Initial Assessment Reason for Hospitalization: cellulitis Functional Status/Living Situation Patient Presentation: Michelle lives in a single family home in [place], [place] with her Albino. She has adult children who do not live locally. Michelle is retired. 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 She has chronic pain and has issures with mobility. At different times Michelle uses a walker, wheelchair and scooter, depending on how she is feeling. Her home is able to accomodate her needs and also has a ramp, shower chair and commode. Town of Residence: [place], [place] Resides with: Spouse ( Albino) Significant Other/Family: Out of area Employment Status: Retired Medications Medication Management: No Issues/Barriers identified Advance Directives Advance Directives: Do you have an Advance Directive: N , 15:18 AD On File at [facility]: N 10/26/12, 14:49 Date Asked 02/07/25 02/07/25, 08:20 AD Date Reviewed COLST On File at [facility] No 04/28/21, 18:19 COLST Date Scanned Code Status Resuscitation Status Full Code Portal Pt does not currently have a portal and education provided: Yes Insurance Coverage/Financial Issues Insurance: Medicare / Care Team Visit Care Team Role Provider Type Lauryn Herrera NP NURSE PRACTITIONER Melissa Garcia Primary Care Provider NON-[facility] STAFF PHYSICIAN Abdullahi Harmon MD Admit Provider [facility] STAFF PHYSICIAN Attending Provider Discharge Potential Discharge Needs: PCP F/U Appt Anticipated Barriers to Discharge: None Identified Patient/Family Education Needs: Review discharge instructions, discuss Ask Me Three Transportation: Private vehicle Plan: Anticipate Michelle will be discharged home, possibly with new home health services, when medically cleared. She will follow up with her community providers and plan of care and transport with her . CM will follow and continue to support discharge planning effforts. Social Determinants of Health Screening Social Determinants of health last assessed in clinic: 02/14/25 Will the Patient Participate in the Screening?: Yes Do you worry about having a steady place to live?: no Problems where you live: no known problems In the past 12 months, have you had to go without electric, gas, oil or water in your home?: no 1. Within the past 12 months, we worried whether our food would run out before we got money to buy more.: Never true 2. Within the past 12 months, the food we bought just didn't last and we didn't have money to get more.: Never true Has lack of transportation kept you from medical appointments or from doing things needed for daily living?: no Has anyone in your life made you feel unsafe or unsupported?: no How hard is it for you to pay for the very basics like food, housing, medical care, and heating? Would you say it is:: Not hard at all Do you want help finding or keeping work or a job?: I do not need or want help If for any reason you need help with day-to-day activities such as bathing, preparing meals, shopping, managing finances, etc., do you get the help you need?: I get all the help I need How often do you feel lonely or isolated from those around you?: Never Do you speak a language other than [place] at home?: Yes Does the patient want assistance with any of the above?: No Health Related Social Needs Health related social needs: education (Z55.6) Health related social needs details: pt independent at home with minimal assistance from spouse PFSH All Active Problems (Updated 02/14/25 @ 09:53 by Jeanna Skaggs APRN) Discharge planning issues (Acute) Ambulatory dysfunction (Acute) MRSA cellulitis (Acute) Non-ST elevation [place] (NSTEMI) (Acute) Chronic pain disorder (Chronic) Lumbar radiculitis (Acute) Postlaminectomy syndrome of lumbar region (Acute) GERD (gastroesophageal reflux disease) (Chronic) Diffuse spasm of esophagus (Acute) Spondylosis (Acute) Cardiomegaly (Acute) Heart murmur (Acute) Mild intermittent asthma (Acute) Pure hypercholesterolemia (Acute) Lymphedema (Acute) Peripheral venous insufficiency (Acute) Spasm of back muscles (Acute) Actinic keratosis (Acute) Aortic valve stenosis, nonrheumatic (Acute) Acute bronchitis (Acute) Fatigue (Acute) Nausea (Acute) Chronic cough (Acute) Snoring (Acute) Dyspnea on exertion (Acute) Daytime somnolence (Acute) Exacerbation of intermittent asthma (Acute) Otitis externa (Acute) Insomnia (Acute) Candidiasis of mouth (Acute) Influenza A (Acute) Diabetes mellitus (Chronic) Psoriatic arthritis (Acute) Renal insufficiency (Chronic) Polypharmacy (Acute) Bacteremia (Acute) Pneumonia (Acute) COVID (Acute) Cellulitis and abscess of foot (Acute) Contusion of right foot (Acute) Sepsis (Acute) Bone infection of left foot (Acute) Status post total left knee replacement (Acute) Pain (Acute) Lower extremity pain (Acute) Medical History Effusion of knee Vertigo Urinary disorder Skin disorder Syncope Musculoskeletal disease Motion sickness Liver disease Irregular heart beat Infection Genital disease, female Eye problem ENT disease Elevated cholesterol Digestive problems Complication of anesthesia Circulatory disease Cancer Breathing problem Basal cell carcinoma Chest pain Postoperative anemia due to acute blood loss Hyperlipidemia Hepatosplenomegaly Gait abnormality DVT (deep venous thrombosis) Complex regional pain syndrome type 2 of lower extremity Spinal stenosis Age related osteoporosis Abnormal liver function Failed total knee arthroplasty Fecal impaction Crushing injury of unspecified knee, sequela Chronic prescription opiate use History of falling Obesity Rupture of left quadriceps tendon Fracture of metatarsal of left foot, closed Pain in right ankle and joints of right foot Psoriasis Prepatellar bursitis Quadriceps tendon rupture History of basal cell carcinoma Loose orthopedic implant MOELLER (nonalcoholic steatohepatitis) Type 2 diabetes mellitus Asthma Arthritis Elevated troponin Severe sepsis Acute UTI Chronic pain Edema, peripheral Bacteremia due to group B Streptococcus Surgical History History of endoscopy History of laparotomy Hx of colonoscopy Status post left knee replacement Artificial knee joint present History of arthroplasty of left knee History of total knee arthroplasty History of lumbar surgery S/P revision of total knee Hx of hysterectomy Hx of spinal surgery Hx of laminectomy History of left knee replacement s/p revision for infected prosthesis Family History Brother Cancer family hx of cancer Sister Cancer Diabetes High cholesterol Hypertension Father Stroke Diabetes Coronary artery disease Heart disease High cholesterol Hypertension Thrombophilia Mother Mental disorder Osteoporosis Maternal Grandmother Breast cancer Cancer Sister High cholesterol Hypertension Diabetes Social History Smoking/Tobacco Use Status: Never Smoking risk assessment performed?: Yes Alcohol Intake: current Alcohol Intake frequency: holidays/special occasions only Drug use: Never Substance use type: marijuana Details: occasionally will do a THC edible Housing: house Do you feel safe at home: Yes Do you feel safe in your relationship?: Yes Additional Social history: Lives with in [place]. 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
[2025-02-12 09:34] VITALS: BP 132/52; PULSE 69; TEMP 36.5; O2SAT 98
[2025-02-12] MEDS: Multivitamin w/Minerals TAB 1 TAB PO (09:40)
[2025-02-12] MEDS: Esomeprazole 40 MG CAPCR PO (09:40)
[2025-02-12] MEDS: Aspirin 81 MG CHEW PO (09:40)
[2025-02-12] MEDS: methylPREDNISolone 4 MG TAB PO (09:41)
[2025-02-12] MEDS: Cholecalciferol (Vitamin D3) 1,000 UNIT TAB 2000 UNITS PO (09:41)
[2025-02-12] MEDS: DULoxetine 30 MG CAP 60 MG PO (09:41)
[2025-02-12] MEDS: amLODIPine 5 MG TAB PO (09:42)
[2025-02-12] MEDS: Enoxaparin 40 MG/0.4 ML SYR SC (09:42)
[2025-02-12] MEDS: Lisinopril 10 MG TAB PO (09:42)
[2025-02-12] MEDS: Insulin Glargine 300 UNITS/3 ML PEN 24 UNITS SC (10:00)
[2025-02-12] MEDS: Insulin Aspart 300 UNITS/3 ML PEN SC ×2 (12:37→17:04)
[2025-02-12] MEDS: Insulin Aspart 300 UNITS/3 ML PEN 10 UNITS SC ×2 (12:38→17:04)
--- NOTE | 2025-02-12 12:46 | W.PM.HP.N ---
Date of service: 02/12/25 Time of Service: 12:47 Assessment and Plan Assessment and plan (1) MRSA cellulitis: Status: Acute Assessment and plan: Recommendations from [facility] on discharge are to continue vancomycin Elevate leg above the level of the heart is much as possible throughout the day ultrasound of the left lower extremity negative for DVT at [facility] vanco pharmacy dosing, check random vanco level today. (2) Ambulatory dysfunction: Status: Acute Assessment and plan: PT evaluation for discharge planning (3) Non-ST elevation [place] (NSTEMI): Status: Acute Assessment and plan: [facility] on February 10 showed non occlusive CAD Echo EF 70% continue goal directed medical therapy with ASA, statin, beta tyler, DUC I, and diabetes management (4) Diabetes mellitus: Status: Chronic Assessment and plan: A1C on 01/12 was 7.5% continue diabetic diet sliding scale coverage ACHS lantus 24 units daily, adjust as needed. discussed with DR Graham History of Present Illness Narrative: This is a 69-year-old female patient originally presented here to an [facility] for generalized weakness and multiple falls at home. Her troponins were being trended and continued to climb so she was transferred to [facility] for cardiac evaluation. She underwent a left heart cath that showed nonobstructive coronary artery disease recommendations for goal-directed medical therapy. Also found to have a left thigh cellulitis initially started on ceftriaxone but then changed to vancomycin after receiving a positive MRSA nasal swab. Hemodynamically she has been stable. Physical therapy recommendations are for inpatient rehab. She is being admitted back here for skilled rehabilitation prior to returning home. Review of Systems All systems reviewed & are unremarkable except as noted in HPI and below PFSH All Active Problems (Updated 02/12/25 @ 14:23 by Lauryn Herrera NP) Ambulatory dysfunction (Acute) MRSA cellulitis (Acute) Non-ST elevation [place] (NSTEMI) (Acute) Chronic pain disorder (Chronic) Lumbar radiculitis (Acute) Postlaminectomy syndrome of lumbar region (Acute) GERD (gastroesophageal reflux disease) (Chronic) Diffuse spasm of esophagus (Acute) Spondylosis (Acute) Cardiomegaly (Acute) Heart murmur (Acute) Mild intermittent asthma (Acute) Pure hypercholesterolemia (Acute) Lymphedema (Acute) Peripheral venous insufficiency (Acute) Spasm of back muscles (Acute) Actinic keratosis (Acute) Aortic valve stenosis, nonrheumatic (Acute) Acute bronchitis (Acute) Fatigue (Acute) Nausea (Acute) Chronic cough (Acute) Snoring (Acute) Dyspnea on exertion (Acute) Daytime somnolence (Acute) Exacerbation of intermittent asthma (Acute) Otitis externa (Acute) Insomnia (Acute) Candidiasis of mouth (Acute) Influenza A (Acute) Diabetes mellitus (Chronic) Psoriatic arthritis (Acute) Renal insufficiency (Chronic) Polypharmacy (Acute) Bacteremia (Acute) Pneumonia (Acute) COVID (Acute) Cellulitis and abscess of foot (Acute) Contusion of right foot (Acute) Sepsis (Acute) Bone infection of left foot (Acute) Status post total left knee replacement (Acute) Pain (Acute) Lower extremity pain (Acute) Medical History Effusion of knee Vertigo Urinary disorder Skin disorder Syncope Musculoskeletal disease Motion sickness Liver disease Irregular heart beat Infection Genital disease, female Eye problem ENT disease Elevated cholesterol Digestive problems Complication of anesthesia Circulatory disease Cancer Breathing problem Basal cell carcinoma Chest pain Postoperative anemia due to acute blood loss Hyperlipidemia Hepatosplenomegaly Gait abnormality DVT (deep venous thrombosis) Complex regional pain syndrome type 2 of lower extremity Spinal stenosis Age related osteoporosis Abnormal liver function Failed total knee arthroplasty Fecal impaction Crushing injury of unspecified knee, sequela Chronic prescription opiate use History of falling Obesity Rupture of left quadriceps tendon Fracture of metatarsal of left foot, closed Pain in right ankle and joints of right foot Psoriasis Prepatellar bursitis Quadriceps tendon rupture History of basal cell carcinoma Loose orthopedic implant MOELLER (nonalcoholic steatohepatitis) Type 2 diabetes mellitus Asthma Arthritis Elevated troponin Severe sepsis Acute UTI Chronic pain Edema, peripheral Bacteremia due to group B Streptococcus Surgical History History of endoscopy History of laparotomy Hx of colonoscopy Status post left knee replacement Artificial knee joint present History of arthroplasty of left knee History of total knee arthroplasty History of lumbar surgery S/P revision of total knee Hx of hysterectomy Hx of spinal surgery Hx of laminectomy History of left knee replacement s/p revision for infected prosthesis Family History Brother Cancer family hx of cancer Sister Cancer Diabetes High cholesterol Hypertension Father Stroke Diabetes Coronary artery disease Heart disease High cholesterol Hypertension Thrombophilia Mother Mental disorder Osteoporosis Maternal Grandmother Breast cancer Cancer Sister High cholesterol Hypertension Diabetes Social History Smoking/Tobacco Use Status: Never Smoking risk assessment performed?: Yes Alcohol Intake: current Alcohol Intake frequency: holidays/special occasions only Drug use: Never Substance use type: marijuana Details: occasionally will do a THC edible Housing: house Do you feel safe at home: Yes Do you feel safe in your relationship?: Yes Additional Social history: Lives with in [place]. 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 Meds Allergies and Home Medications Allergies Allergy/AdvReac Type Severity Reaction Status Date / Time capsaicin Allergy Severe Anaphylaxsi Unverified 02/07/25 08:28 s clarithromycin (From Biaxin) Allergy Intermediate Skin Rash Unverified 02/07/25 08:28 Penicillins Allergy Intermediate Skin Rash Unverified 02/07/25 08:28 Sulfa (Sulfonamide Allergy Intermediate Skin Rash Unverified 02/07/25 08:28 Antibiotics) nickel Allergy Mild Itching Unverified 02/07/25 08:28 acitretin Allergy Unknown Swelling/Ed Unverified 02/07/25 08:28 tc amoxicillin Allergy Unknown Unknown Unverified 02/07/25 08:28 jiang pepper Allergy Unknown Unknown Unverified 02/07/25 08:28 cefazolin Allergy Unknown Unknown Unverified 02/07/25 08:28 gabapentin Allergy Unknown Dizziness/L Unverified 02/07/25 08:28 ighthead infliximab (From Remicade) Allergy Unknown passed out Unverified 02/07/25 08:28 isoniazid Allergy Unknown Unknown Unverified 02/07/25 08:28 oxycodone Allergy Unknown Other (See Unverified 02/07/25 08:28 Comment) tramadol Allergy Unknown Other (See Unverified 02/07/25 08:28 Comment) Home Medications ?Medication ?Instructions ?Recorded ?Confirmed ?Type albuterol sulfate 2.5 mg/3 mL 1 unit inhalation QID PRN 01/11/14 02/11/25 History (0.083 %) solution for nebulization esomeprazole magnesium 40 mg 40 mg PO DAILY 01/11/14 02/11/25 History capsule,delayed release (Nexium) leflunomide 20 mg tablet (Arava) 20 mg PO DAILY 01/11/14 02/11/25 History methylprednisolone 4 mg tablet 4 mg PO DAILY 01/11/14 02/11/25 History zolpidem 10 mg tablet 10 mg PO HS 01/11/14 02/11/25 History aspirin 81 mg chewable tablet 81 mg PO DAILY 04/09/19 02/11/25 History insulin lispro 100 unit/mL See Rx Instructions .Route .COMPLEX 04/09/19 02/11/25 History subcutaneous pen (Humalog KwikPen (U-100) Insulin) multivitamin with minerals-iron 1 mg PO DAILY 04/09/19 02/11/25 History fumarate 9 mg iron/15 mL oral liquid (Multi Vitamin) ondansetron HCl 4 mg tablet 4 mg PO Q8H PRN PRN 05/10/22 02/11/25 History albuterol sulfate 90 mcg/actuation 2 puff inhalation Q4H PRN PRN #8.5 05/13/22 02/11/25 Rx aerosol inhaler (Ventolin HFA) grams atorvastatin 20 mg tablet 20 mg PO QPM 08/26/23 02/11/25 History indapamide 2.5 mg tablet 2.5 mg PO DAILY 08/27/23 02/11/25 History insulin glargine 100 unit/mL (3 24 unit subcut QAM 08/27/23 02/11/25 History mL) subcutaneous pen (Lantus Solostar U-100 Insulin) lisinopril 10 mg tablet 10 mg PO DAILY 09/30/23 02/11/25 History montelukast 10 mg tablet 10 mg PO QHS 09/30/23 02/11/25 History (Singulair) calcium citrate 200 mg PO BID 10/01/23 02/11/25 History folic acid 800 mcg tablet 0.8 mg PO DAILY 10/01/23 02/11/25 History acetaminophen 650 mg See Rx Instructions PO TID PRN 12/11/23 02/11/25 History tablet,extended release (Tylenol Arthritis Pain) amlodipine 5 mg tablet 5 mg PO DAILY 12/11/23 02/11/25 History cholecalciferol (vitamin D3) 50 50 mcg PO DAILY 12/11/23 02/11/25 History mcg (2,000 unit) capsule duloxetine 60 mg capsule,delayed 60 mg PO DAILY 12/11/23 02/11/25 History release elderberry fruit See Rx Instructions PO DIRECTED 12/11/23 02/11/25 History metoprolol tartrate 100 mg tablet 100 mg PO DAILY 12/11/23 02/11/25 History nystatin 100,000 unit/mL oral See Rx Instructions PO DIRECTED 12/11/23 02/11/25 History suspension fluconazole 100 mg tablet 100 mg PO DAILY PRN 03/16/24 02/11/25 History ipratropium 0.5 mg-albuterol 3 mg 3 ml inhalation Q4H PRN 03/16/24 02/11/25 History (2.5 mg base)/3 mL nebulization soln tizanidine 2 mg tablet 2 mg PO Q8H PRN 03/16/24 02/11/25 History Exam Narrative Exam Narrative: Obese female appearing older than stated age in no acute distress sitting in her bed visiting with family head is atraumatic eyes nonicteric noninjected oral mucosas moist neck with full range of motion respirations are even and unlabored skin is pink warm dry well-perfused left lower extremity edematous. Medial lesion to left thigh with slough in wound bed some surrounding erythema. see pictures uploaded in record. No fluctuant area appreciated old surgical site mid knee well-healed Results Labs 02/12/25 13:15 02/12/25 13:15 Last Vital Signs Temp 36.5 C 02/12/25 09:34 Pulse 69 02/12/25 09:34 Resp 12 02/12/25 01:45 BP 132/52 L 02/12/25 09:34 Pulse Ox 98 02/12/25 09:34 Time Spent Time spent with Patient: 55-74 minutes Time was spent: preparing to see the patient(eg.review tests), obtaining and/or reviewing separately otained hiistory, ordering medications,tests, procedures, indepentently interpreting results and counseling the patient
[2025-02-12 13:24] LABS: Abs Immature Grans 0.04 10^3/uL (0.0-0.06); Absolute Basophil Count 0.06 10^3/uL (0.0-0.2); Absolute Eosinophil Count 0.26 10^3/uL (0.0-0.7); Absolute Lymphocyte Count 1.23 10^3/uL (1.2-3.4); Absolute Monocyte Count 0.73 10^3/uL (0.1-0.8); Absolute Neutrophil Count 6.29 10^3/uL (1.2-6.7); Basophils % 0.7 %; HCT 32.4 % (36.0-46.0); HGB 10.7 g/dL (11.2-15.7); Immature Grans % 0.5 %; Lymphocytes % 14.3 %; MCH 30.1 pg (27.0-33.0); MCV 91 fL (80-95); MPV 9.9 fL (8.0-11.0); Monocytes % 8.5 %; Platelet Count 261 10^3/uL (130-400); RBC 3.56 10^6/uL (3.93-5.22); RDW 13.6 % (11.7-14.6); WBC 8.61 10^3/uL (4.4-10.8)
[2025-02-12 13:40] LABS: ALT 36 U/L (14-59); AST 31 U/L (15-37); Albumin 2.2 g/dL (3.4-5.0); Alkaline Phosphatase 174 U/L (46-116); Anion Gap 8.4 mmol/L (3-11); BUN 16 mg/dL (7-18); Bilirubin, Total 0.6 mg/dL (0.2-1.0); CO2 26.6 mmol/L (21.0-32.0); Calcium 8.6 mg/dL (8.5-10.1); Chloride 103 mmol/L (98-107); Estimated GFR 61.36 (mL/min/1.73m2); Glucose 230 mg/dL (74-106); Potassium 3.9 mmol/L (3.5-5.1); Sodium 138 mmol/L (136-145); Total Protein 6.5 g/dL (6.4-8.2)
[2025-02-12 14:01] LABS: Vancomycin, Random 9.3 ug/mL
--- NOTE | 2025-02-12 14:21 | W.WOUNDCONS ---
Wound Initial Evaluation Narrative Narrative: NO assessment att, pictures only
--- NOTE | 2025-02-12 14:58 | W.WOUNDCONS ---
Date of service: 02/12/25 Time of Service: 15:01 Wound Initial Evaluation Narrative Narrative: Pictures only, no assessment att. Photo Photo:
[2025-02-12] MEDS: VANCOMYCIN/WATER (PEG) 750 MG/150 ML BAG 150 MG IVPB (15:00)
[2025-02-12] MEDS: Normal Saline Flush 10 ML SYR (16:54)
[2025-02-12 20:06] VITALS: BP 170/66; PULSE 89; RESP 20; TEMP 36.7; O2SAT 97
[2025-02-12 20:10] VITALS: BP 152/68
[2025-02-12] MEDS: Zolpidem 10 MG TAB PO (22:34)
[2025-02-12] MEDS: Oxybutynin-CR 5 MG TABCR 10 MG PO (22:34)
[2025-02-12] MEDS: Atorvastatin 20 MG TAB PO (22:35)
[2025-02-12] MEDS: oxyCODONE 5 MG TAB 10 MG PO (22:35)
[2025-02-12] MEDS: Montelukast 10 MG TAB PO (22:35)
[2025-02-12] MEDS: Metoprolol 50 MG TAB 100 MG PO (22:35)
[2025-02-12] MEDS: Normal Saline Flush 10 ML SYR IVP (22:36)
[2025-02-13] MEDS: VANCOMYCIN/WATER (PEG) 750 MG/150 ML BAG 150 MG IVPB (03:59)
[2025-02-13 07:09] VITALS: BP 125/60; PULSE 71; RESP 16; TEMP 35.9; O2SAT 97
[2025-02-13 08:02] LABS: Bilirubin Negative (Negative); Blood Negative (Negative); Clarity Clear (Clear); Glucose Negative (Negative); Ketones Negative (Negative); Leukocyte Esterase Small (Negative); Nitrite Negative (Negative); Urobilinogen 0.2 mg/dL (Up to 0.2); pH 5.5 (5-8)
[2025-02-13] MEDS: Enoxaparin 40 MG/0.4 ML SYR SC (08:09)
[2025-02-13] MEDS: Insulin Glargine 300 UNITS/3 ML PEN 24 UNITS SC (08:10)
[2025-02-13] MEDS: Insulin Aspart 300 UNITS/3 ML PEN 10 UNITS SC ×2 (08:10→17:06)
[2025-02-13] MEDS: Insulin Aspart 300 UNITS/3 ML PEN SC ×2 (08:10→17:06)
[2025-02-13 08:11] LABS: Bacteria Few HPF (Negative); C & S Indicated? No; Casts 0-2 Hyaline LPF (Negative); Crystals Negative HPF (Negative); Epithelial Cells Moderate HPF (Negative); Mucus Negative (Negative); RBC 0-2 HPF (0-2)
[2025-02-13] MEDS: Esomeprazole 40 MG CAPCR PO (08:11)
[2025-02-13] MEDS: Calcium Citrate 950 MG TAB PO ×2 (08:11→21:28)
[2025-02-13] MEDS: Multivitamin w/Minerals TAB 1 TAB PO (08:12)
[2025-02-13] MEDS: Cholecalciferol (Vitamin D3) 1,000 UNIT TAB 2000 UNITS PO (08:12)
[2025-02-13] MEDS: Aspirin 81 MG CHEW PO (08:12)
[2025-02-13] MEDS: DULoxetine 30 MG CAP 60 MG PO (08:12)
[2025-02-13] MEDS: Lisinopril 10 MG TAB PO (08:12)
[2025-02-13] MEDS: Normal Saline Flush 10 ML SYR IVP (08:12)
[2025-02-13] MEDS: amLODIPine 5 MG TAB PO (08:12)
[2025-02-13] MEDS: methylPREDNISolone 4 MG TAB PO (08:13)
[2025-02-13] MEDS: Linezolid 600 MG TAB PO (15:58)
[2025-02-13 21:24] VITALS: BP 139/58; PULSE 79; RESP 20; TEMP 37.3; O2SAT 96
[2025-02-13] MEDS: Acetaminophen 325 MG TAB 650 MG PO (21:28)
[2025-02-13] MEDS: Metoprolol 50 MG TAB 100 MG PO (21:28)
[2025-02-13] MEDS: Zolpidem 10 MG TAB PO (21:28)
[2025-02-13] MEDS: Oxybutynin-CR 5 MG TABCR 10 MG PO (21:28)
[2025-02-13] MEDS: Montelukast 10 MG TAB PO (21:29)
[2025-02-13] MEDS: Atorvastatin 20 MG TAB PO (21:29)
[2025-02-14 07:38] VITALS: BP 156/53; PULSE 66; RESP 16; TEMP 36.4; O2SAT 97
[2025-02-14] MEDS: Enoxaparin 40 MG/0.4 ML SYR SC (08:01)
[2025-02-14] MEDS: amLODIPine 5 MG TAB PO (08:02)
[2025-02-14] MEDS: Insulin Glargine 300 UNITS/3 ML PEN 24 UNITS SC (08:02)
[2025-02-14] MEDS: Lisinopril 10 MG TAB PO (08:02)
[2025-02-14] MEDS: Multivitamin w/Minerals TAB 1 TAB PO (08:02)
[2025-02-14] MEDS: Calcium Citrate 950 MG TAB PO (08:02)
[2025-02-14] MEDS: Esomeprazole 40 MG CAPCR PO (08:02)
[2025-02-14] MEDS: Aspirin 81 MG CHEW PO (08:02)
[2025-02-14] MEDS: Cholecalciferol (Vitamin D3) 1,000 UNIT TAB 2000 UNITS PO (08:03)
[2025-02-14] MEDS: DULoxetine 30 MG CAP 60 MG PO (08:03)
[2025-02-14] MEDS: methylPREDNISolone 4 MG TAB PO (08:03)
--- NOTE | 2025-02-14 09:41 | W.PM.PROGNOT ---
Date of Service Date of service: 02/14/25 Time of Service: 09:41 Assessment and Plan Assessment and plan (1) MRSA cellulitis: Status: Acute Assessment and plan: Recommendations from [facility] on discharge are to continue vancomycin Elevate leg above the level of the heart is much as possible throughout the day ultrasound of the left lower extremity negative for DVT at [facility] vanco pharmacy dosing, check random vanco level today. Was transitioned to oral line zolid on 02/13/25 -Pharmacy concerns: Cymbalta and linezolid for Serotonin symdrome - Based on duration of therapy - will lower cymabalta to 30 mg daily while n therapy and monitor (2) Ambulatory dysfunction: Status: Acute Assessment and plan: PT evaluation for discharge planning (3) Non-ST elevation [place] (NSTEMI): Status: Acute Assessment and plan: [facility] on February 10 showed non occlusive CAD Echo EF 70% continue goal directed medical therapy with ASA, statin, beta tyler, DUC I, and diabetes management (4) Diabetes mellitus: Status: Chronic Assessment and plan: A1C on 01/12 was 7.5% continue diabetic diet sliding scale coverage ACHS lantus 24 units daily, adjust as needed. discussed with DR Graham (5) Discharge planning issues: Status: Acute Assessment and plan: SB1 for vancomycin IV for MRSA cellulitis -Blood Cx? - oral linezolid VS bactrim Discussed with Dr Graham Objective Last Vital Signs Temp 36.4 C L 02/14/25 07:38 Pulse 66 02/14/25 07:38 Resp 16 02/14/25 07:38 BP 156/53 H 02/14/25 07:38 Pulse Ox 97 02/14/25 07:38
--- NOTE | 2025-02-14 11:12 | PDOC.CMIN ---
[facility] Advance Directives: Do you have an Advance Directive: N 03/29/13, 15:18 AD On File at [facility]: N 10/26/12, 14:49 Date Asked 02/07/25 02/07/25, 08:20 AD Date Reviewed COLST On File at [facility] No 04/28/21, 18:19 COLST Date Scanned Code Status Resuscitation Status Full Code Care Team Visit Care Team Role Provider Type Jeanna Skaggs APRN MD [facility] STAFF PHYSICIAN Melissa Garcia Primary Care Provider NON-[facility] STAFF PHYSICIAN InPatient Manuel Khan Other Providers OTHER Abdullahi Harmon MD Admit Provider [facility] STAFF PHYSICIAN Attending Provider Social Determinants of Health Screening Social Determinants of health last assessed in clinic: 02/14/25 Will the Patient Participate in the Screening?: Yes Do you worry about having a steady place to live?: no Problems where you live: no known problems In the past 12 months, have you had to go without electric, gas, oil or water in your home?: no Has lack of transportation kept you from medical appointments or from doing things needed for daily living?: no Has anyone in your life made you feel unsafe or unsupported?: no How hard is it for you to pay for the very basics like food, housing, medical care, and heating? Would you say it is:: Not hard at all Do you want help finding or keeping work or a job?: I do not need or want help If for any reason you need help with day-to-day activities such as bathing, preparing meals, shopping, managing finances, etc., do you get the help you need?: I get all the help I need How often do you feel lonely or isolated from those around you?: Never Do you speak a language other than Belarusian at home?: Yes Does the patient want assistance with any of the above?: No Health Related Social Needs Health related social needs: education (Z55.6) Health related social needs details: pt independent at home with minimal assistance from spouse PFSH All Active Problems (Updated 02/14/25 @ 09:53 by Jeanna Skaggs APRN) Discharge planning issues (Acute) Ambulatory dysfunction (Acute) MRSA cellulitis (Acute) Non-ST elevation [place] (NSTEMI) (Acute) Chronic pain disorder (Chronic) Lumbar radiculitis (Acute) Postlaminectomy syndrome of lumbar region (Acute) GERD (gastroesophageal reflux disease) (Chronic) Diffuse spasm of esophagus (Acute) Spondylosis (Acute) Cardiomegaly (Acute) Heart murmur (Acute) Mild intermittent asthma (Acute) Pure hypercholesterolemia (Acute) Lymphedema (Acute) Peripheral venous insufficiency (Acute) Spasm of back muscles (Acute) Actinic keratosis (Acute) Aortic valve stenosis, nonrheumatic (Acute) Acute bronchitis (Acute) Fatigue (Acute) Nausea (Acute) Chronic cough (Acute) Snoring (Acute) Dyspnea on exertion (Acute) Daytime somnolence (Acute) Exacerbation of intermittent asthma (Acute) Otitis externa (Acute) Insomnia (Acute) Candidiasis of mouth (Acute) Influenza A (Acute) Diabetes mellitus (Chronic) Psoriatic arthritis (Acute) Renal insufficiency (Chronic) Polypharmacy (Acute) Bacteremia (Acute) Pneumonia (Acute) COVID (Acute) Cellulitis and abscess of foot (Acute) Contusion of right foot (Acute) Sepsis (Acute) Bone infection of left foot (Acute) Status post total left knee replacement (Acute) Pain (Acute) Lower extremity pain (Acute) Medical History Effusion of knee Vertigo Urinary disorder Skin disorder Syncope Musculoskeletal disease Motion sickness Liver disease Irregular heart beat Infection Genital disease, female Eye problem ENT disease Elevated cholesterol Digestive problems Complication of anesthesia Circulatory disease Cancer Breathing problem Basal cell carcinoma Chest pain Postoperative anemia due to acute blood loss Hyperlipidemia Hepatosplenomegaly Gait abnormality DVT (deep venous thrombosis) Complex regional pain syndrome type 2 of lower extremity Spinal stenosis Age related osteoporosis Abnormal liver function Failed total knee arthroplasty Fecal impaction Crushing injury of unspecified knee, sequela Chronic prescription opiate use History of falling Obesity Rupture of left quadriceps tendon Fracture of metatarsal of left foot, closed Pain in right ankle and joints of right foot Psoriasis Prepatellar bursitis Quadriceps tendon rupture History of basal cell carcinoma Loose orthopedic implant MOELLER (nonalcoholic steatohepatitis) Type 2 diabetes mellitus Asthma Arthritis Elevated troponin Severe sepsis Acute UTI Chronic pain Edema, peripheral Bacteremia due to group B Streptococcus Surgical History History of endoscopy History of laparotomy Hx of colonoscopy Status post left knee replacement Artificial knee joint present History of arthroplasty of left knee History of total knee arthroplasty History of lumbar surgery S/P revision of total knee Hx of hysterectomy Hx of spinal surgery Hx of laminectomy History of left knee replacement s/p revision for infected prosthesis Family History Brother Cancer family hx of cancer Sister Cancer Diabetes High cholesterol Hypertension Father Stroke Diabetes Coronary artery disease Heart disease High cholesterol Hypertension Thrombophilia Mother Mental disorder Osteoporosis Maternal Grandmother Breast cancer Cancer Sister High cholesterol Hypertension Diabetes Social History Smoking/Tobacco Use Status: Never Smoking risk assessment performed?: Yes Alcohol Intake: current Alcohol Intake frequency: holidays/special occasions only Drug use: Never Substance use type: marijuana Details: occasionally will do a THC edible Housing: house Do you feel safe at home: Yes Do you feel safe in your relationship?: Yes Additional Social history: Lives with in [place]. 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
--- NOTE | 2025-02-14 11:13 | CMSA_ITS ---
Date of service: 02/12/25 Time of Service: 14:00 SB Psychosocial/Act. [facility] Hospital Admission Admission Date: 02/11/25 [place] [facility] [place]:: cellulitis Swing Bed Admission Swing Bed Admit Date:: 02/11/25 Swing Bed Level of Care: Level 1/SNF Social Supports PREVIOUS FUNCTIONAL STATUS/SOCIAL/FAMILY SUPPORTS:: Michelle lives in [place] with her [place]. 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 Michelle has adult children however, they do not live locally. Michelle no longer drives, her provides all her transportation. Michelle shares she sometimes uses a walker, wheelchair and has a scooter. She has a ramp, shower chair and commode. Prior to Admission Living Arrangements/Environment Prior to Admission:: see above Work History Employment Status:: retired Benefits Financial: Social Security L[employer] Active [employer] Member:: Yes Advent Affliation: Muslim Advance Directives for Healthcare If no AD, do you want more information:: No Interests Music:: classical Present Functional Status Physical Abilities:: some mobility limitations Cognitive:: good Communication:: good Sensory Systems: good Behavior:: appropriate Medical History PAST MEDICAL HISTORY/PAST SURGICAL HISTORY:: All Active Problems Discharge planning issues (Acute) DVT prophylaxis (Acute) Renal insufficiency (Chronic) Hypercalcemia (Acute) Polypharmacy (Acute) Bacteremia (Acute) Acute confusion (Acute) Bacteremia (Acute) Chronic pain (Chronic) Pneumonia (Acute) COVID (Acute) Cellulitis and abscess of foot (Acute) Contusion of right foot (Acute) Sepsis (Acute) Bone infection of left foot (Acute) Status post total left knee replacement (Acute) Pain (Acute) Lower extremity pain (Acute) Medical History Bacteremia due to group B Streptococcus Diabetes mellitus Edema, peripheral Psoriatic arthritis Surgical History History of left knee replacement s/p revision for infected prosthesis General Health:: fair Admission Data Reason for Swing Bed Admission:: IV antibiotics Discharge Plan:: Michelle will be discharged home with no new services. She will follow up with her community providers and plan of care and transport with her . Assessment: Michelle was admitted to [facility] on 02/07/25 with an NSTEMI. She was transferred [place] [facility] [place] cath that same day. She did well but developed cellulitis of her lower extremity and required IV AB. [facility] requested a swing bed for IV antibiotics and rehab. Michelle was transferred to [facility] on 02/11/25. Upon arrival she informed staff that she would only need to remain for 2 days of IV antibiotics and anticipated discharge on Friday02/14/25. 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
--- NOTE | 2025-02-14 11:14 | CMSCP_ITS ---
Date of service: 02/12/25 Time of Service: 14:30 Swingbed Plan of Care Activites/Discharge Plan of care: SWING BED PROGRAM ACTIVITIES/DISCHARGE PLAN OF CARE ACTIVITIES PLAN Date:02/12/25 Identified Need:individualized activities plan Intervention/Plan:Michelle enjoys classical music and visiting with friends and family. She would enjoy music therapy if available. Initials [facility] DIS[place]GE PLAN Date:02/12/25 Identified Need:safe discharge plan Intervention/Plan:Michelle will be discharged home with no new services. She will follow up with her community providers and plan of care and transport with family. [facility]
--- NOTE | 2025-02-14 11:35 | IN_ITS ---
PT Notes Visit Reasons: Cellulitis Physical Therapy Inpatient Initial Evaluation Date: 02/14/2025 Referring Doctor: Jeanna Skaggs NP PT Orders: PT CONSULT: Safety consult for discharge Precautions: fall risk, fused left knee, Contact precautions for MRSA Nares Patient Profile/Admitting Diagnosis: Pt is a 69 yo female readmitted to [facility] from [facility] after cardiac cath. Pt now with cellulitis to left LE initially placed on IV antibiotics no changed to po antibiotic. Pt (+) MRSA Nares while at [facility]. PMHX: Ambulatory dysfunction (Acute) MRSA cellulitis (Acute) Non-ST elevation [place] (NSTEMI) (Acute) Chronic pain disorder (Chronic) Lumbar radiculitis (Acute) Postlaminectomy syndrome of lumbar region (Acute) GERD (gastroesophageal reflux disease) (Chronic) Diffuse spasm of esophagus (Acute) Spondylosis (Acute) Cardiomegaly (Acute) Heart murmur (Acute) Mild intermittent asthma (Acute) Pure hypercholesterolemia (Acute) Lymphedema (Acute) Peripheral venous insufficiency (Acute) Spasm of back muscles (Acute) Actinic keratosis (Acute) Aortic valve stenosis, nonrheumatic (Acute) Acute bronchitis (Acute) Fatigue (Acute) Nausea (Acute) Chronic cough (Acute) Snoring (Acute) Dyspnea on exertion (Acute) Daytime somnolence (Acute) Exacerbation of intermittent asthma (Acute) Otitis externa (Acute) Insomnia (Acute) Candidiasis of mouth (Acute) Influenza A (Acute) Diabetes mellitus (Chronic) Psoriatic arthritis (Acute) Renal insufficiency (Chronic) Polypharmacy (Acute) Bacteremia (Acute) Pneumonia (Acute) COVID (Acute) Cellulitis and abscess of foot (Acute) Contusion of right foot (Acute) Sepsis (Acute) Bone infection of left foot (Acute) Status post total left knee replacement (Acute) Pain (Acute) Lower extremity pain (Acute) Medical History Effusion of knee Vertigo Urinary disorder Skin disorder Syncope Musculoskeletal disease Motion sickness Liver disease Irregular heart beat Infection Genital disease, female Eye problem ENT disease Elevated cholesterol Digestive problems Complication of anesthesia Circulatory disease Cancer Breathing problem Basal cell carcinoma Chest pain Postoperative anemia due to acute blood loss Hyperlipidemia Hepatosplenomegaly Gait abnormality DVT (deep venous thrombosis) Complex regional pain syndrome type 2 of lower extremity Spinal stenosis Age related osteoporosis Abnormal liver function Failed total knee arthroplasty Fecal impaction Crushing injury of unspecified knee, sequela Chronic prescription opiate use History of falling Obesity Rupture of left quadriceps tendon Fracture of metatarsal of left foot, closed Pain in right ankle and joints of right foot Psoriasis Prepatellar bursitis Quadriceps tendon rupture History of basal cell carcinoma Loose orthopedic implant MOELLER (nonalcoholic steatohepatitis) Type 2 diabetes mellitus Asthma Arthritis Elevated troponin Severe sepsis Acute UTI Chronic pain Edema, peripheral Bacteremia due to group B Streptococcus Surgical History History of endoscopy History of laparotomy Hx of colonoscopy Status post left knee replacement Artificial knee joint present History of arthroplasty of left knee History of total knee arthroplasty History of lumbar surgery S/P revision of total knee Hx of hysterectomy Hx of spinal surgery Hx of laminectomy History of left knee replacement s/p revision for infected prosthesis Social History/Home Situation:Pt reports she lives with her .She is independent within her home with use of walker wheelchair or scooter depending on the day. She is independent ADL. ,medication management , meal prep. Equipment Owned/DME: FWW, wheelchair and scooter,, ramp, shower chair. lift chair Subjective:Pt reports she is going home today now that she is on po antibiotics.She reports she has an Outpatient PT appointment scheduled for this week to work on UE strength to help reduce risk for falls. Pt reports she falls 1-2 times per month. Objective: [] General Observation: female semireclined in bed with LLE elevated on pillows.Pt with 2 areas of mild erythema left medial thigh proximal area with white center; 2 irregular shaped areas of mild erythema to medial lower leg Mental Status: A+Ox 4 , cooperative, able to follow all instructions, motivated and determined. agreeable to participate in assessment. Pain: denies ROM: [] Right Upper Extremity: WFL Left Upper Extremity: WFL Right Lower Extremity: WFL Left Lower Extremity:hip and ankle WFL knee fused in extension Strength: [] Right Upper Extremity: grossly 4/5 Left Upper Extremity: grossly 4/5 Right Lower Extremity: hip 3+/5, ankle 3/5 knee NA d/t fusion Left Lower Extremity: 4/5 Sensation: intact to light touch Bed Mobility/Transfers: [] Supine to sit independent Sit to stand independent Stand to sit independent Bed to chair modified independent with FWW Gait: Amb with FWW supervision 50 feet with impaired left knee flexion Balance: Static Sitting:Normal Dynamic Sitting: Good + Static Standing: Good Dynamic Standing: Fair +; impaired ankle and hip strategies B Special Tests: Mobility Limitations Standardized Measure [facility] 6 clicks Basic Mobility Inpatient Short Form: Raw Score: 23 CMS Score: 11.20% Informed Consent/Education: Patient instructed in purpose of PT consult. Assessment: Patient is 69 yo female who presents with clinical signs and symptoms consistent with current/admitting diagnoses that have resulted to mobility limitations, gait instability, generalized weakness, and impairment of motor control as demonstrated by the following impairment level findings: 1. Decreased strength to BUE and BLE major muscle groups 2. Impaired standing balance 3. Limitation of joint range of motion in left knee d/t fusion 4. Impaired functional activity tolerance Impairments are contributing to the following functional limitations: 1. gait instability/ deviations 2. Increase completion time for mobility ADL performance 3. Increased fall risk Patient is assessed as a moderate complexity based on the following: History:69-year-old female with impairment level findings, functional limitations, and past medical history as indicated above Examination: Demonstrable impairment in strength, balance, and mobility level with underlying impairments and functional limitations as documented above Presentation: evolving/stable Decision Making: moderate Goals: N/A. PT evaluation Plan of Care/Treatment Plan: N/A. DISCHARGE RECOMMENDATIONS: Home with outpatient PT as scheduled for balance , strengthening BUE and LE TREATMENT CODE/TIME: 39086/ [id number] Thank you for the opportunity to participate in the care of this patient. Please sign an return this page within 30 days if you agree with the above POC. Thank you! Physician Signature Date [facility]
[2025-02-14] MEDS: Insulin Aspart 300 UNITS/3 ML PEN 10 UNITS SC (12:21)
[2025-02-14] MEDS: Insulin Aspart 300 UNITS/3 ML PEN SC (12:22)
--- NOTE | 2025-02-14 12:24 | W.PM.DS.N ---
Date of service: 02/14/25 Time of Service: 12:25 DS: Diagnosis Discharge Diagnosis (1) MRSA cellulitis: Status: Acute (2) Ambulatory dysfunction: Status: Acute (3) Non-ST elevation RI (NSTEMI): Status: Acute (4) Diabetes mellitus: Status: Chronic (5) Discharge planning issues: Status: Acute Discharge Plan Disposition Patient Disposition: Home Condition: Improving Discharge Details Reason For Visit: Cellulitis Admit Date/Time: 02/11/25 19:33 Admit Provider: Abdullahi Harmon Attending Provider: Abdullahi Harmon Primary Care Provider: Melissa Garcia Hospital Course Hospital Course: This is a 69-year-old female patient originally presented here to an [facility] for generalized weakness and multiple falls at home. Her troponins were being trended and continued to climb so she was transferred to [facility] for cardiac evaluation. She underwent a left heart cath that showed nonobstructive coronary artery disease recommendations for goal-directed medical therapy. Also found to have a left thigh cellulitis initially started on ceftriaxone but then changed to vancomycin after receiving a positive MRSA nasal swab. Now on oral linezolid with a reduction in her cymbalta dosing d/t risk of serotonin syndrom until the end of her treatment. Patient educated and aware of the plan and agrees. The patient has been hemodynamically and afebrile. Physical therapy recommendations are for inpatient rehab made by [facility], but the patient only wanted to remain swing bed status for 2 days then wanted to be discharged home . PT evaluation recommended home with outpatient physical therapy for which she was already scheduled. Recommendations for outpatient follow-up: Follow-up CBC Resumption of cymbalta dosing as per [facility] and patient's discussion-( mentioned that she did not need it ) Discussed with Dr. Graham Recommendations for Follow Up Recommended tests to be ordered by follow up provider: CBC Home Meds and New Rx's Prescriptions: New duloxetine 30 mg Capsule,Delayed Release(Dr/Ec) 30 mg PO DAILY Qty: 7 0RF linezolid 600 mg Tablet 600 mg PO Q12H Qty: 8 0RF Bio-K plus 50 billion cell capsule,delayed release(DR/EC) 1 cap PO DAILY Qty: 7 0RF Continued ipratropium-albuterol 0.5 mg-3 mg(2.5 mg base)/3 mL solution for nebulization 3 ml inhalation Q4H PRN tizanidine 2 mg tablet 2 mg PO Q8H PRN fluconazole 100 mg tablet 100 mg PO DAILY PRN amlodipine 5 mg tablet 5 mg PO DAILY cholecalciferol (vitamin D3) 50 mcg (2,000 unit) capsule 50 mcg PO DAILY elderberry fruit See Rx Instructions PO DIRECTED Rx Instructions: orally as directed; metoprolol tartrate 100 mg tablet 100 mg PO DAILY nystatin 100,000 unit/mL suspension See Rx Instructions PO DIRECTED Rx Instructions: orally as directed; swish and swallow acetaminophen [Tylenol Arthritis Pain] 650 mg tablet extended release See Rx Instructions PO TID PRN Rx Instructions: orally three times a day PRN; methylprednisolone 4 MG tablet 4 mg PO DAILY leflunomide [Arava] 20 MG tablet 20 mg PO DAILY esomeprazole magnesium [Nexium] 40 MG capsule,delayed release(DR/EC) 40 mg PO DAILY zolpidem 10 MG tablet 10 mg PO HS ondansetron HCl 4 mg tablet 4 mg PO Q8H PRN PRN albuterol sulfate [Ventolin HFA] 90 mcg/actuation Hfa Aerosol Inhaler 2 puff inhalation Q4H PRN PRNQty: 8.5 0RF montelukast [Singulair] 10 mg tablet 10 mg PO QHS lisinopril 10 mg tablet 10 mg PO DAILY calcium citrate 200 mg (950 mg) tablet 200 mg PO BID Patient Comments: TAKE ONE TABLET BY MOUTH ONCE DAILY folic acid 800 mcg tablet 0.8 mg PO DAILY Patient Comments: TAKE ONE TABLET BY MOUTH EVERY DAY IN THE MORNING. aspirin 81 mg Tablet,Chewable 81 mg PO DAILY Multi Vitamin 9 mg iron/15 mL Liquid 1 mg PO DAILY insulin lispro [Humalog KwikPen Insulin] 100 unit/mL Insulin Pen See Rx Instructions .ROUTE .COMPLEX Rx Instructions: Original sig- 10 units+SS sc tid with meals. Pt often skips breakfast and lunch dosing due to BG in range, normally injects 14 units sc with evening meal insulin glargine [Lantus Solostar U-100 Insulin] 100 unit/mL (3 mL) insulin pen 24 unit SUBCUT QAM indapamide 2.5 mg tablet 2.5 mg PO DAILY Patient Comments: TAKE ONE TABLET BY MOUTH ONCE DAILY Changed atorvastatin 20 mg tablet 10 mg PO QPM Qty: 0 0RF Patient Comments: TAKE 1 TABLET BY MOUTH EVERY NIGHT AT BEDTIME Held duloxetine 60 mg capsule,delayed release(DR/EC) 60 mg PO DAILY Hold Instructions: Resume on 02/22/25. Resume as per PCP s/p treatment for cellulitis No Action albuterol sulfate 3 ML solution for nebulization 1 unit Inhalation QID PRN Patient Comments: 02/10/14- pt has not used for months, per pt Discharge Instructions Additional Instructions: These are symptoms you should look out for and seek medical attention if identified Serotonin syndrome causes symptoms such as: ?Feeling anxious, restless, or confused ?Sweating ?Muscle spasms, or muscles that cannot relax normally ?Very fast [id number] eye movements ?Shaking or trembling ?Fever ?Fast heartbeat ?Vomiting ?Diarrhea Referrals: Melissa Garcia [Primary Care Provider, Medicine] Referral Note: Follow-up within 7 days of discharge please Activity:: Activity as Tolerated Equipment/Supplies:: Walker Diet:: heart helathy diabetic DS: Summary Time Spent with Patient providing and/or coordinating discharge services: Greater than 30 minutes Status at Discharge Functional status at discharge: uses cane/walker Overall status at discharge: patient is progressing back to baseline Mental Status: mental status grossly normal Speech and Movement: speech and movement normal Mood: congruent mood Affect: normal affect Quality:SDOH Health Related Social Needs: Health related social needs education Health related social needs details pt independent at home with minimal assistance from spouse Health related social needs details: pt independent at home with minimal assistance from spouse Exam Narrative Exam Narrative: 69n years old obese female appearing older than stated age in no acute distress, A&O X3 oral mucous membranes are moist , no JVD, respirations are even and unlabored clear lungs, skin is pink warm dry well-perfused left lower extremity edematous. Medial lesion to left thigh with reduced slough in wound bed some surrounding erythema no drainage , improving left inner calf erythema. No fluctuance seen in the area appreciated old surgical site mid knee well-healed Psych Mental Status: mental status grossly normal Speech and Movement: speech and movement normal Mood: congruent mood Affect: normal affect DS: Data Vitals/I&O Vitals and I&O: Vital Signs Temperature 36.4 C L 02/14/25 07:38 Temperature Source Temporal Artery Scan 02/14/25 07:38 Pulse 66 02/14/25 07:38 Pulse Rhythm Regular 02/11/25 19:40 Respiratory Rate 16 02/14/25 07:38 Respiratory Effort Normal, Non-Labored 02/11/25 19:40 Respiratory Depth Normal 02/11/25 19:40 Respiratory Pattern Normal 02/11/25 19:40 Blood Pressure 156/53 H 02/14/25 07:38 Blood Pressure Mean 87 02/14/25 07:38 Pulse Oximetry 97 02/14/25 07:38 Oxygen Delivery Method Room Air 02/14/25 07:38 Oxygen Flow Rate 0 02/14/25 07:38 Pain Level 3 02/14/25 07:38 Intake & Output 02/13/25 02/14/25 02/14/25 23:59 11:59 23:59 Intake Total 480 / 640 Output Total 400 / 400 Balance 480 / 140 -400 / -400 Weight 89.5 kg Intake: Oral 480 / 480 Output: Urine 400 / 400 Other: Urine Color Yellow Yellow Urine Appearance Clear Clear Urine Odor Normal Normal Comment immeasurable void Stool Size Moderate Stool Characteristics Soft Formed PFSH All Active Problems (Updated 02/14/25 @ 09:53 by Jeanna Skaggs APRN) Discharge planning issues (Acute) Ambulatory dysfunction (Acute) MRSA cellulitis (Acute) Non-ST elevation RI (NSTEMI) (Acute) Chronic pain disorder (Chronic) Lumbar radiculitis (Acute) Postlaminectomy syndrome of lumbar region (Acute) GERD (gastroesophageal reflux disease) (Chronic) Diffuse spasm of esophagus (Acute) Spondylosis (Acute) Cardiomegaly (Acute) Heart murmur (Acute) Mild intermittent asthma (Acute) Pure hypercholesterolemia (Acute) Lymphedema (Acute) Peripheral venous insufficiency (Acute) Spasm of back muscles (Acute) Actinic keratosis (Acute) Aortic valve stenosis, nonrheumatic (Acute) Acute bronchitis (Acute) Fatigue (Acute) Nausea (Acute) Chronic cough (Acute) Snoring (Acute) Dyspnea on exertion (Acute) Daytime somnolence (Acute) Exacerbation of intermittent asthma (Acute) Otitis externa (Acute) Insomnia (Acute) Candidiasis of mouth (Acute) Influenza A (Acute) Diabetes mellitus (Chronic) Psoriatic arthritis (Acute) Renal insufficiency (Chronic) Polypharmacy (Acute) Bacteremia (Acute) Pneumonia (Acute) COVID (Acute) Cellulitis and abscess of foot (Acute) Contusion of right foot (Acute) Sepsis (Acute) Bone infection of left foot (Acute) Status post total left knee replacement (Acute) Pain (Acute) Lower extremity pain (Acute) Medical History Effusion of knee Vertigo Urinary disorder Skin disorder Syncope Musculoskeletal disease Motion sickness Liver disease Irregular heart beat Infection Genital disease, female Eye problem ENT disease Elevated cholesterol Digestive problems Complication of anesthesia Circulatory disease Cancer Breathing problem Basal cell carcinoma Chest pain Postoperative anemia due to acute blood loss Hyperlipidemia Hepatosplenomegaly Gait abnormality DVT (deep venous thrombosis) Complex regional pain syndrome type 2 of lower extremity Spinal stenosis Age related osteoporosis Abnormal liver function Failed total knee arthroplasty Fecal impaction Crushing injury of unspecified knee, sequela Chronic prescription opiate use History of falling Obesity Rupture of left quadriceps tendon Fracture of metatarsal of left foot, closed Pain in right ankle and joints of right foot Psoriasis Prepatellar bursitis Quadriceps tendon rupture History of basal cell carcinoma Loose orthopedic implant MOELLER (nonalcoholic steatohepatitis) Type 2 diabetes mellitus Asthma Arthritis Elevated troponin Severe sepsis Acute UTI Chronic pain Edema, peripheral Bacteremia due to group B Streptococcus Surgical History History of endoscopy History of laparotomy Hx of colonoscopy Status post left knee replacement Artificial knee joint present History of arthroplasty of left knee History of total knee arthroplasty History of lumbar surgery S/P revision of total knee Hx of hysterectomy Hx of spinal surgery Hx of laminectomy History of left knee replacement s/p revision for infected prosthesis Family History Brother Cancer family hx of cancer Sister Cancer Diabetes High cholesterol Hypertension Father Stroke Diabetes Coronary artery disease Heart disease High cholesterol Hypertension Thrombophilia Mother Mental disorder Osteoporosis Maternal Grandmother Breast cancer Cancer Sister High cholesterol Hypertension Diabetes Social History Smoking/Tobacco Use Status: Never Smoking risk assessment performed?: Yes Alcohol Intake: current Alcohol Intake frequency: holidays/special occasions only Drug use: Never Substance use type: marijuana Details: occasionally will do a THC edible Housing: house Do you feel safe at home: Yes Do you feel safe in your relationship?: Yes Additional Social history: Lives with in [place]. 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 Time Spent with Patient Time Spent with Patient: 70-84 minutes4 Time was spent: preparing to see the patient(eg.review tests), obtaining and/or reviewing separately otained hiistory, ordering medications,tests, procedures, referring, communicating with other health healthcare project manager, indepentently interpreting results, counseling the patient and care coordination
[2025-02-14] MEDS: Linezolid 600 MG TAB PO (14:13)
--- NOTE | 2025-02-14 18:06 | PDOC.CMDIS ---
Date of service: 02/14/25 Time of Service: 18:06 LACE Index Scoring Tool Questions: Length of Stay (in days): 3 Was the patient admitted via the E.D.?: No Comorbidities: Previous M.I., PVD, Diabetes w/o Complication, Chronic Pulmonary Disease and Liver or Renal Disease E.D. Visits: 2 Answers: Total Score: 10 Risk of Readmission: High Risk Care Management Discharge Plan Reason for Hospitalization: cellulitis Discharge Plan: Michelle will be discharged home on oral antibiotics and will follow up with her PCP and plan of care. She will transport via private vehicle with her . Patient/Family Education Needs: Review of discharge instructions, limitations, follow up plan and discuss Ask Me Three SDOH Health Related Social Needs: Health related social needs education Health related social needs details pt independent at home with minimal assistance from spouse Health related social needs details: pt independent at home with minimal assistance from spouse
--- NOTE | 2025-03-09 13:43 | W.PM.PROGNOT ---
Date of Service Date of service: 02/13/25 Time of Service: 13:00 Assessment and Plan Assessment and plan (1) MRSA cellulitis: Status: Acute Assessment and plan: Recommendations from [facility] on discharge are to continue vancomycin Elevate leg above the level of the heart is much as possible throughout the day ultrasound of the left lower extremity negative for DVT at [facility] vanco pharmacy dosing, check random vanco level today. (2) Ambulatory dysfunction: Status: Resolved Assessment and plan: PT evaluation for discharge planning (3) Non-ST elevation CA (NSTEMI): Assessment and plan: [facility] on February 10 showed non occlusive CAD Echo EF 70% continue goal directed medical therapy with ASA, statin, beta tyler, DUC I, and diabetes management (4) Diabetes mellitus: Status: Chronic Assessment and plan: A1C on 01/12 was 7.5% continue diabetic diet sliding scale coverage ACHS lantus 24 units daily, adjust as needed. discussed with DR Graham Subjective Subjective Patient reports: no new complaints, feels better, tolerating liquids well, tolerating a regular diet and afebrile Exam Narrative Exam Narrative: Obese female appearing older than stated age in no acute distress sitting in her bed visiting with family head is atraumatic eyes nonicteric noninjected oral mucosas moist neck with full range of motion respirations are even and unlabored skin is pink warm dry well-perfused left lower extremity edematous. Medial lesion to left thigh with slough in wound bed some surrounding erythema. see pictures uploaded in record. No fluctuant area appreciated old surgical site mid knee well-healed Objective Last Vital Signs Temp 36.4 C L 02/14/25 07:38 Pulse 66 02/14/25 07:38 Resp 16 02/14/25 07:38 BP 156/53 H 02/14/25 07:38 Pulse Ox 97 02/14/25 07:38 Time Spent with Patient Time Spent with Patient: 35-49 minutes Time was spent: preparing to see the patient(eg.review tests), obtaining and/or reviewing separately otained hiistory, ordering medications,tests, procedures, indepentently interpreting results and counseling the patient
== END 2025-02-14 14:24 | disposition home or self-care (01) | DRG 602 ==
PROVIDERS: Family Medicine; Nurse Practitioner Acute Care; Admitting Provider Hospitalist; PCP Family Medicine; Responsible Provider Nurse Practitioner Acute Care; Visit Provider Hospitalist
DX: L03.116 Cellulitis of left lower limb (principal); I21.4 Non-ST elevation (NSTEMI) myocardial infarction; B95.62 Methicillin resistant Staphylococcus aureus infection as the cause of diseases classified elsewhere; R26.2 Difficulty in walking, not elsewhere classified; Z79.4 Long term (current) use of insulin; E11.9 Type 2 diabetes mellitus without complications; M54.16 Radiculopathy, lumbar region; G89.29 Other chronic pain; M96.1 Postlaminectomy syndrome, not elsewhere classified; I87.2 Venous insufficiency (chronic) (peripheral); K21.9 Gastro-esophageal reflux disease without esophagitis; I35.0 Nonrheumatic aortic (valve) stenosis; J45.20 Mild intermittent asthma, uncomplicated; G47.00 Insomnia, unspecified; Z96.652 Presence of left artificial knee joint; E78.00 Pure hypercholesterolemia, unspecified; Z79.891 Long term (current) use of opiate analgesic; K75.81 Nonalcoholic steatohepatitis (NASH); R60.0 Localized edema; I25.10 Atherosclerotic heart disease of native coronary artery without angina pectoris
CPT/HCPCS: 00123; 80053; 97162; 99306; 99316; J1650; 80202; 81003; 81015; 85025; 86140; 99223; J1815; J3372; J7509

== ENCOUNTER 2025-03-15 14:33 | Emergency (ER) | payer MEDICARE, BC, SELFPAY ==
[2025-03-15 14:37] VITALS: BP 105/69; PULSE 80; RESP 16; TEMP 36.4; O2SAT 93
--- NOTE | 2025-03-15 15:23 | W.ED.GENAD ---
Discharge Plan Disposition Patient Disposition: Home Condition: Stable Discharge Details Clinical Impression: Drug-induced skin rash Clinical Impression: (Ruled Out): Daytime somnolence Primary Care Provider: Melissa Garcia ED Provider: Jayy Ying Home Meds and New Rx's Prescriptions: Continued ipratropium-albuterol 0.5 mg-3 mg(2.5 mg base)/3 mL solution for nebulization 3 ml inhalation Q4H PRN tizanidine 2 mg tablet 2 mg PO Q8H PRN fluconazole 100 mg tablet 100 mg PO DAILY PRN amlodipine 5 mg tablet 5 mg PO DAILY cholecalciferol (vitamin D3) 50 mcg (2,000 unit) capsule 50 mcg PO DAILY duloxetine 60 mg capsule,delayed release(DR/EC) 60 mg PO DAILY elderberry fruit See Rx Instructions PO DIRECTED Rx Instructions: orally as directed; metoprolol tartrate 100 mg tablet 100 mg PO DAILY nystatin 100,000 unit/mL suspension See Rx Instructions PO DIRECTED Rx Instructions: orally as directed; swish and swallow acetaminophen [Tylenol Arthritis Pain] 650 mg tablet extended release See Rx Instructions PO TID PRN Rx Instructions: orally three times a day PRN; albuterol sulfate 3 ML solution for nebulization 1 unit Inhalation QID PRN Patient Comments: 02/10/14- pt has not used for months, per pt methylprednisolone 4 MG tablet 4 mg PO DAILY leflunomide [Arava] 20 MG tablet 20 mg PO DAILY esomeprazole magnesium [Nexium] 40 MG capsule,delayed release(DR/EC) 40 mg PO DAILY zolpidem 10 MG tablet 10 mg PO HS ondansetron HCl 4 mg tablet 4 mg PO Q8H PRN PRN albuterol sulfate [Ventolin HFA] 90 mcg/actuation Hfa Aerosol Inhaler 2 puff inhalation Q4H PRN PRNQty: 8.5 0RF montelukast [Singulair] 10 mg tablet 10 mg PO QHS lisinopril 10 mg tablet 10 mg PO DAILY calcium citrate 200 mg (950 mg) tablet 200 mg PO BID Patient Comments: TAKE ONE TABLET BY MOUTH ONCE DAILY folic acid 800 mcg tablet 0.8 mg PO DAILY Patient Comments: TAKE ONE TABLET BY MOUTH EVERY DAY IN THE MORNING. duloxetine 30 mg Capsule,Delayed Release(Dr/Ec) 30 mg PO DAILY Qty: 7 0RF linezolid 600 mg Tablet 600 mg PO Q12H Qty: 8 0RF atorvastatin 20 mg tablet 10 mg PO QPM Qty: 0 0RF Patient Comments: TAKE 1 TABLET BY MOUTH EVERY NIGHT AT BEDTIME Bio-K plus 50 billion cell capsule,delayed release(DR/EC) 1 cap PO DAILY Qty: 7 0RF aspirin 81 mg Tablet,Chewable 81 mg PO DAILY Multi Vitamin 9 mg iron/15 mL Liquid 1 mg PO DAILY insulin lispro [Humalog KwikPen Insulin] 100 unit/mL Insulin Pen See Rx Instructions .ROUTE .COMPLEX Rx Instructions: Original sig- 10 units+SS sc tid with meals. Pt often skips breakfast and lunch dosing due to BG in range, normally injects 14 units sc with evening meal insulin glargine [Lantus Solostar U-100 Insulin] 100 unit/mL (3 mL) insulin pen 24 unit SUBCUT QAM indapamide 2.5 mg tablet 2.5 mg PO DAILY Patient Comments: TAKE ONE TABLET BY MOUTH ONCE DAILY Discharge Instructions Instructions: Skin Rash ED Additional Instructions: You were seen in the emergency department for your possible reaction to vancomycin, your liver and kidney function is normal, your white blood cells are normal, your procalcitonin is normal, I do not suspect dress syndrome or Pichardo-Roney syndrome at this time, you do not have red man syndrome which is a common reaction during vancomycin infusions. I think it is reasonable that infectious disease wants to switch you to daptomycin, you expressed concern over timing of your next infusion in the 24-hour dosing schedule and I think it is reasonable with your mild skin peeling of the hands to resume normal infusions at your scheduled appointment tomorrow on daptomycin, we obtained a baseline creatine kinase which is required before starting daptomycin. In the meantime, if you experience fever, or any other concerns overnight you need to return to the emergency department at once. Referrals: Melissa Garcia [Primary Care Provider, Medicine] Discharge Data Discharge Date/Time-TO BE ENTERED AT DEPARTURE: 03/15/25 21:09 HPI General Date/Time Provider Initiated Documentation: 03/15/25 14:33. HPI Narrative: 69 year-old female presents to ED today by POV/ambulating, sent down from infusion center for possible reaction to vancomycin- which she has been receiving daily infusions of for weeks for possible infected leo in her L femur with a chief complaint of peeling of skin of her hands and one of the soles of her feet with onset 3-4 days ago. Patient received about 80% of her vancomycin dose today, which is followed by [facility] Infectious Disease. Quality described as constant pain in her L leg where the leo is- had two small boils of possible MRSA that have healed, and has peeling to palms and soles with pain at fingertips, no radiation to fever, diffuse rash, erythema, scaling, scalded appearance. Severity is described as moderate. Palliating factors include nothing specific- was stopped on Vanco and sent here for further plan and eval. Provoking factors include nothing specific. Patient not anticoagulated. Related Data Home Medications ?Medication ?Instructions ?Recorded ?Confirmed albuterol sulfate 2.5 mg/3 mL 1 unit inhalation QID PRN 01/11/14 02/11/25 (0.083 %) solution for nebulization esomeprazole magnesium 40 mg 40 mg PO DAILY 01/11/14 02/11/25 capsule,delayed release (Nexium) leflunomide 20 mg tablet (Arava) 20 mg PO DAILY 01/11/14 02/11/25 methylprednisolone 4 mg tablet 4 mg PO DAILY 01/11/14 02/11/25 zolpidem 10 mg tablet 10 mg PO HS 01/11/14 02/11/25 aspirin 81 mg chewable tablet 81 mg PO DAILY 04/09/19 02/11/25 insulin lispro 100 unit/mL See Rx Instructions .Route .COMPLEX 04/09/19 02/11/25 subcutaneous pen (Humalog KwikPen (U-100) Insulin) multivitamin with minerals-iron 1 mg PO DAILY 04/09/19 02/11/25 fumarate 9 mg iron/15 mL oral liquid (Multi Vitamin) ondansetron HCl 4 mg tablet 4 mg PO Q8H PRN PRN 05/10/22 02/11/25 albuterol sulfate 90 mcg/actuation 2 puff inhalation Q4H PRN PRN #8.5 05/13/22 02/11/25 aerosol inhaler (Ventolin HFA) grams indapamide 2.5 mg tablet 2.5 mg PO DAILY 08/27/23 02/11/25 insulin glargine 100 unit/mL (3 24 unit subcut QAM 08/27/23 02/11/25 mL) subcutaneous pen (Lantus Solostar U-100 Insulin) lisinopril 10 mg tablet 10 mg PO DAILY 09/30/23 02/11/25 montelukast 10 mg tablet 10 mg PO QHS 09/30/23 02/11/25 (Singulair) calcium citrate 200 mg PO BID 10/01/23 02/11/25 folic acid 800 mcg tablet 0.8 mg PO DAILY 10/01/23 02/11/25 acetaminophen 650 mg See Rx Instructions PO TID PRN 12/11/23 02/11/25 tablet,extended release (Tylenol Arthritis Pain) amlodipine 5 mg tablet 5 mg PO DAILY 12/11/23 02/11/25 cholecalciferol (vitamin D3) 50 50 mcg PO DAILY 12/11/23 02/11/25 mcg (2,000 unit) capsule duloxetine 60 mg capsule,delayed 60 mg PO DAILY 12/11/23 02/11/25 release elderberry fruit See Rx Instructions PO DIRECTED 12/11/23 02/11/25 metoprolol tartrate 100 mg tablet 100 mg PO DAILY 12/11/23 02/11/25 nystatin 100,000 unit/mL oral See Rx Instructions PO DIRECTED 12/11/23 02/11/25 suspension fluconazole 100 mg tablet 100 mg PO DAILY PRN 03/16/24 02/11/25 ipratropium 0.5 mg-albuterol 3 mg 3 ml inhalation Q4H PRN 03/16/24 02/11/25 (2.5 mg base)/3 mL nebulization soln tizanidine 2 mg tablet 2 mg PO Q8H PRN 03/16/24 02/11/25 L. acidophilus,casei,rhamnosus 50 1 cap PO DAILY #7 caps 02/14/25 billion cell capsule,delayed release (Bio-K plus) atorvastatin 20 mg tablet 10 mg (1/2 x 20 mg) PO QPM #0 tabs 02/14/25 02/11/25 duloxetine 30 mg capsule,delayed 30 mg PO DAILY #7 caps 02/14/25 release linezolid 600 mg tablet 600 mg PO Q12H #8 tabs 02/14/25 Previous Rx's ?Medication ?Instructions ?Recorded albuterol sulfate 90 mcg/actuation 2 puff inhalation Q4H PRN PRN #8.5 05/13/22 aerosol inhaler (Ventolin HFA) grams L. acidophilus,casei,rhamnosus 50 1 cap PO DAILY #7 caps 02/14/25 billion cell capsule,delayed release (Bio-K plus) atorvastatin 20 mg tablet 10 mg (1/2 x 20 mg) PO QPM #0 tabs 02/14/25 duloxetine 30 mg capsule,delayed 30 mg PO DAILY #7 caps 02/14/25 release linezolid 600 mg tablet 600 mg PO Q12H #8 tabs 02/14/25 Allergies Allergy/AdvReac Type Severity Reaction Status Date / Time capsaicin Allergy Severe Anaphylaxsi Unverified 02/07/25 08:28 s clarithromycin (From Biaxin) Allergy Intermediate Skin Rash Unverified 02/07/25 08:28 Penicillins Allergy Intermediate Skin Rash Unverified 02/07/25 08:28 Sulfa (Sulfonamide Allergy Intermediate Skin Rash Unverified 02/07/25 08:28 Antibiotics) nickel Allergy Mild Itching Unverified 02/07/25 08:28 acitretin Allergy Unknown Swelling/Ed Unverified 02/07/25 08:28 tc amoxicillin Allergy Unknown Unknown Unverified 02/07/25 08:28 jiang pepper Allergy Unknown Unknown Unverified 02/07/25 08:28 cefazolin Allergy Unknown Unknown Unverified 02/07/25 08:28 gabapentin Allergy Unknown Dizziness/L Unverified 02/07/25 08:28 ighthead infliximab (From Remicade) Allergy Unknown passed out Unverified 02/07/25 08:28 isoniazid Allergy Unknown Unknown Unverified 02/07/25 08:28 oxycodone Allergy Unknown Other (See Unverified 02/07/25 08:28 Comment) tramadol Allergy Unknown Other (See Unverified 02/07/25 08:28 Comment) General Stated Complaint: RashLesion ARABELLA: 3 Review of Systems All systems reviewed & are unremarkable except as noted in HPI and below Exam Narrative Exam Narrative: GENERAL APPEARANCE: Well-nourished, non-toxic, awake and alert, atraumatic, no acute distress. SKIN: Warm, pink, dry, peeling of the palms without discoloration, no sloughing of the skin, no erythema diffusely anywhere, surgical dressing in place in the left thigh without erythema, her previous boils from weeks to a month ago have healed, neurovascularly intact distal HEAD: Normocephalic, atraumatic, normal hair distribution for gender/age. EYES: Normal conjunctiva, no exudates on lids/lashes. ENT: Nares patent, no circumoral cyanosis, no facial swelling NECK: Supple, trachea midline, painless cervical ROM. LUNGS/CHEST: Lungs CTA bilaterally- no rhonchi/rales/wheezes diffusely, non-labored respirations, normal A/P diameter, symmetrical expansion, no chest wall deformity HEART (CV/PV): Regular rate and rhythm without murmur, no peripheral edema, no JVD. ABDOMEN: Soft, non-distended, no guarding, no tenderness. MSK: Normal ROM, no swelling/deformity to bilateral UEs or LEs- no erythema, no lesions/ulcerations to L LE, moving all extremities without weakness, no cyanosis, spine midline without tenderness, normal curvature. NEURO: Mental Status AAOx4 - alert to person, place, time, events No facial droop, no forehead involvement. Motor: No focal weakness - strength 5/5 in bilateral UEs and LEs, proximal and distal, symmetric. Sensory: sensation intact to light touch globally. Gait NT. PSYCH: euthymic, cooperative, pleasant, appropriate speech Course Vital Signs Vital signs: Vital Signs Temperature 36.4 C L 03/15/25 14:37 Pulse 80 03/15/25 14:37 Respiratory Rate 16 03/15/25 14:37 Blood Pressure 105/69 03/15/25 14:37 Pulse Oximetry 93 03/15/25 14:37 Temperature 36.4 C L 03/15/25 14:37 Temperature Source Oral 03/15/25 14:37 Pulse 80 03/15/25 14:37 Respiratory Rate 16 03/15/25 14:37 Blood Pressure 105/69 03/15/25 14:37 Blood Pressure Position Sitting 03/15/25 14:37 Pulse Oximetry 93 03/15/25 14:37 Oxygen Delivery Method Room Air 03/15/25 14:37 Oxygen Flow Rate 0 03/15/25 14:37 Pain Level 0 03/15/25 14:37 Medical Decision Making This dictation utilizes [id number] dictation software and may contain unedited grammatical errors. 69 year-old female presents to ED today by POV/ambulating, sent down from infusion center for possible reaction to vancomycin- which she has been receiving daily infusions of for weeks for possible infected leo in her L femur with a chief complaint of peeling of skin of her hands and one of the soles of her feet with onset 3-4 days ago. Patient received about 80% of her vancomycin dose today, which is followed by [facility] Infectious Disease. Quality described as constant pain in her L leg where the leo is- had two small boils of possible MRSA that have healed, and has peeling to palms and soles with pain at fingertips, no radiation to fever, diffuse rash, erythema, scaling, scalded appearance. Severity is described as moderate. Palliating factors include nothing specific- was stopped on Vanco and sent here for further plan and eval. Provoking factors include nothing specific. Patients' medical history: complex-patient has history of NSTEMI, vertigo, basal cell carcinoma, hepatosplenomegaly, gait abnormality, DVT, failed TKA, psoriatic arthritis, quadriceps tendon rupture, MOELLER, T2DM, asthma, history of laminectomy, aortic stenosis, renal insufficiency. Family and social history: Lives at home with her , eats normal diet, no sick contacts. Pertinent exam findings / vital signs include some peeling of the palms without discoloration, no sloughing of the skin, no erythema diffusely anywhere, surgical dressing in place in the left thigh without erythema, her previous boils from weeks to a month ago have healed, neurovascularly intact distal, benign abdomen, benign cardiopulmonary status without tachycardia, afebrile. Differential / pathologies of concern include unlikely red man syndrome, per ID they were concerned for SJS versus dress syndrome, the patient also has a history of psoriasis and psoriatic arthritis that could be causing the symptoms, possibly developing an allergy to vancomycin as well. Diagnostic studies of: - CBC, CMP, lactate, procalcitonin, magnesium, CRP/ESR, magnesium, CK, blood cultures. - CBC shows no leukocytosis, shows chronic baseline anemia - CRP is mildly elevated at 3.27, ESR is 50 - CMP shows creatinine 1.1 at baseline - Magnesium 1.4 repleted with 2 g IV recommend supplements p.o. in the outpatient setting - Lactate 2.1, procalcitonin negative do not suspect sepsis - Blood cultures pending - Imaging deferred to infectious disease ED Course/Assessment/Plan:: -Spoke with Dr. Rodríguez of Infectious Disease-reasonable to switch the patient to daptomycin, she gets daily infusions and did receive 80% of her vancomycin today, we discussed possibly giving her a dose tonight but that would perhaps mess up the timing of her infusion appointments, I discussed this with the patient as well as with Dr. Rodríguez of infectious disease, the patient is afebrile and has mild symptoms to her hands developing over the last week to 4 days, has close follow-up with daily infusion center visits, counseled the patient that due to the concerns of ITP that she could be observed in the hospital and she preferred to be discharged home. Dr. Rodríguez of [facility] had sent messages about switching her to daptomycin, baseline CK was obtained. The patient is still on rifampin but is not completely without antibiotic coverage, her vancomycin trough levels cannot be known at this visit but it is reasonable with her stability to hold off until tomorrow for reinitiation on daptomycin. Findings not consistent with SJS, TENS, Dress Syndrome- no sloughing, liver/renal enzymes WNL, no fevers. Disposition of Drug-Induced Skin Rash. Patient verbalized understanding of the plan and return to ED criteria and engaged in shared decision making. Medical Records Medical records reviewed: Yes I reviewed the patient's medical records. Lab Data Lab results reviewed: Yes I reviewed the patient's lab results. Labs: 03/15/25 16:32 Blood Blood Culture - Pending 03/15/25 15:33 Blood Blood Culture - Pending Laboratory Tests Range/Units 03/15/25 16:32 WBC (4.4-10.8) 10^3/uL 6.63 RBC (3.93-5.22) 10^6/uL 3.50 L Hgb (11.2-15.7) g/dL 10.1 L Hct (36.0-46.0) % 32.2 L MCV (80-95) fL 92 MCH (27.0-33.0) pg 28.9 MCHC (32.0-36.0) % 31.4 L RDW (11.7-14.6) % 14.3 Plt Count (130-400) 10^3/uL 346 MPV (8.0-11.0) fL 10.0 Immature Gran % % 0.2 Neutrophils % % 52.2 Lymphocytes % % 27.5 Monocytes % % 11.8 Eosinophils % % 6.3 Basophils % % 2.0 Nucleated RBC % (0.0-0.3) % 0.0 Absolute Neutrophils (1.2-6.7) 10^3/uL 3.47 Absolute Lymphocytes (1.2-3.4) 10^3/uL 1.82 Absolute Monocytes (0.1-0.8) 10^3/uL 0.78 Absolute Eosinophils (0.0-0.7) 10^3/uL 0.42 Absolute Basophils (0.0-0.2) 10^3/uL 0.13 ESR (0-30) mm/hr 50 H VBG Lactate (<or=2.0) mmol/L 2.1 Sodium (136-145) mmol/L 138 Potassium (3.5-5.1) mmol/L 3.6 Chloride (98-107) mmol/L 102 Carbon Dioxide (21.0-32.0) mmol/L 23.9 Anion Gap (3-11) mmol/L 12.1 H BUN (7-18) mg/dL 8 Creatinine (0.55-1.02) mg/dL 1.1 H Est GFR (CKD-EPI 2020) (mL/min/1.73m2) 54.73 Glucose (74-106) mg/dL 115 H Calcium (8.5-10.1) mg/dL 9.9 Magnesium (1.8-2.4) mg/dL 1.4 L Total Bilirubin (0.2-1.0) mg/dL 0.9 AST (15-37) U/L 23 ALT (14-59) U/L 13 L Alkaline Phosphatase (46-116) U/L 149 H Creatine Kinase (26-192) U/L 31 C-Reactive Protein (<or=0.5) mg/dL 3.27 H Total Protein (6.4-8.2) g/dL 6.8 Albumin (3.4-5.0) g/dL 2.9 L Procalcitonin ng/mL < 0.10 Quality:SDOH Health Related Social Needs: Health related social needs education Health related social needs details pt independent at home with minimal assistance from spouse PFSH All Active Problems (Updated 03/15/25 @ 20:51 by KATHI Shi) Drug-induced skin rash (Acute) MRSA cellulitis (Acute) Chronic pain disorder (Chronic) Lumbar radiculitis (Acute) Postlaminectomy syndrome of lumbar region (Acute) GERD (gastroesophageal reflux disease) (Chronic) Diffuse spasm of esophagus (Acute) Spondylosis (Acute) Cardiomegaly (Acute) Heart murmur (Acute) Mild intermittent asthma (Acute) Pure hypercholesterolemia (Acute) Lymphedema (Acute) Peripheral venous insufficiency (Acute) Spasm of back muscles (Acute) Actinic keratosis (Acute) Aortic valve stenosis, nonrheumatic (Acute) Acute bronchitis (Acute) Fatigue (Acute) Nausea (Acute) Chronic cough (Acute) Snoring (Acute) Dyspnea on exertion (Acute) Daytime somnolence (Acute) Exacerbation of intermittent asthma (Acute) Otitis externa (Acute) Insomnia (Acute) Candidiasis of mouth (Acute) Influenza A (Acute) Diabetes mellitus (Chronic) Psoriatic arthritis (Acute) Renal insufficiency (Chronic) Polypharmacy (Acute) Bacteremia (Acute) Pneumonia (Acute) COVID (Acute) Cellulitis and abscess of foot (Acute) Contusion of right foot (Acute) Sepsis (Acute) Bone infection of left foot (Acute) Status post total left knee replacement (Acute) Pain (Acute) Lower extremity pain (Acute) Medical History Effusion of knee Vertigo Urinary disorder Skin disorder Syncope Musculoskeletal disease Motion sickness Liver disease Irregular heart beat Infection Genital disease, female Eye problem ENT disease Elevated cholesterol Digestive problems Complication of anesthesia Circulatory disease Cancer Breathing problem Basal cell carcinoma Chest pain Postoperative anemia due to acute blood loss Hyperlipidemia Hepatosplenomegaly Gait abnormality DVT (deep venous thrombosis) Complex regional pain syndrome type 2 of lower extremity Spinal stenosis Age related osteoporosis Abnormal liver function Failed total knee arthroplasty Fecal impaction Crushing injury of unspecified knee, sequela Chronic prescription opiate use History of falling Obesity Rupture of left quadriceps tendon Fracture of metatarsal of left foot, closed Pain in right ankle and joints of right foot Psoriasis Prepatellar bursitis Quadriceps tendon rupture History of basal cell carcinoma Loose orthopedic implant MOELLER (nonalcoholic steatohepatitis) Type 2 diabetes mellitus Asthma Arthritis Elevated troponin Severe sepsis Acute UTI Chronic pain Edema, peripheral Bacteremia due to group B Streptococcus Surgical History History of endoscopy History of laparotomy Hx of colonoscopy Status post left knee replacement Artificial knee joint present History of arthroplasty of left knee History of total knee arthroplasty History of lumbar surgery S/P revision of total knee Hx of hysterectomy Hx of spinal surgery Hx of laminectomy History of left knee replacement s/p revision for infected prosthesis Family History Brother Cancer family hx of cancer Sister Cancer Diabetes High cholesterol Hypertension Father Stroke Diabetes Coronary artery disease Heart disease High cholesterol Hypertension Thrombophilia Mother Mental disorder Osteoporosis Maternal Grandmother Breast cancer Cancer Sister High cholesterol Hypertension Diabetes Social History Smoking/Tobacco Use Status: Never Smoking risk assessment performed?: Yes Alcohol Intake: current Alcohol Intake frequency: holidays/special occasions only Drug use: Never Substance use type: marijuana Details: occasionally will do a THC edible Housing: house Do you feel safe at home: Yes Do you feel safe in your relationship?: Yes Additional Social history: Lives with in [place]. 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
[2025-03-15] MEDS: Acetaminophen 500 MG TAB 1000 MG PO (16:39)
[2025-03-15 16:48] LABS: Abs Immature Grans 0.01 10^3/uL (0.0-0.06); HCT 32.2 % (36.0-46.0); HGB 10.1 g/dL (11.2-15.7); Immature Grans % 0.2 %; MCH 28.9 pg (27.0-33.0); MCHC 31.4 % (32.0-36.0); MCV 92 fL (80-95); MPV 10.0 fL (8.0-11.0); Platelet Count 346 10^3/uL (130-400); RBC 3.50 10^6/uL (3.93-5.22); RDW 14.3 % (11.7-14.6); RDW-SD 47.9 fL; WBC 6.63 10^3/uL (4.4-10.8)
[2025-03-15 16:51] LABS: ESR 50 mm/hr (0-30)
[2025-03-15 17:25] LABS: ALT 13 U/L (14-59); AST 23 U/L (15-37); Albumin 2.9 g/dL (3.4-5.0); Alkaline Phosphatase 149 U/L (46-116); Anion Gap 12.1 mmol/L (3-11); BUN 8 mg/dL (7-18); Bilirubin, Total 0.9 mg/dL (0.2-1.0); C-Reactive Protein 3.27 mg/dL (<or=0.5); CO2 23.9 mmol/L (21.0-32.0); Calcium 9.9 mg/dL (8.5-10.1); Chloride 102 mmol/L (98-107); Estimated GFR 54.73 (mL/min/1.73m2); Glucose 115 mg/dL (74-106); Potassium 3.6 mmol/L (3.5-5.1); Sodium 138 mmol/L (136-145); Total Protein 6.8 g/dL (6.4-8.2)
[2025-03-15 17:32] LABS: Magnesium 1.4 mg/dL (1.8-2.4)
[2025-03-15 17:53] LABS: Procalcitonin < 0.10 ng/mL
[2025-03-15] MEDS: MAGNESIUM SULFATE 2 GM/50 ML BAG IV_INF (18:35)
[2025-03-15 18:47] VITALS: BP 171/64; PULSE 86; RESP 16; TEMP 36.4; O2SAT 96
[2025-03-15 19:20] LABS: Creatine Kinase 31 U/L (26-192)
[2025-03-15] MEDS: oxyCODONE 5 MG TAB PO (19:55)
== END 2025-03-15 21:09 | disposition home or self-care (01) ==
PROVIDERS: Emergency Provider Physician Assistant; PCP Family Medicine
DX: L27.1 Localized skin eruption due to drugs and medicaments taken internally (principal); T36.8X5A Adverse effect of other systemic antibiotics, initial encounter; I25.2 Old myocardial infarction; E11.9 Type 2 diabetes mellitus without complications; Z79.82 Long term (current) use of aspirin; Z79.4 Long term (current) use of insulin
CPT/HCPCS: 80053; 82550; 84145; 85652; 87040; 96365; 96366; 99284; 83605; 83735; 85025; 86140; J3373; J3475

== ENCOUNTER 2025-03-24 02:17 | Outpatient (RCR) | payer MEDICARE, BC, SELFPAY ==
[2025-03-02] MEDS: Normal Saline Flush 10 ML SYR IVP (13:00)
[2025-03-02] MEDS: VANCOMYCIN/WATER (PEG) 1.5 GM/300 ML BAG IVPB (13:00)
[2025-03-03] MEDS: Normal Saline Flush 10 ML SYR IVP (13:12)
[2025-03-03] MEDS: VANCOMYCIN/WATER (PEG) 1.5 GM/300 ML BAG IVPB (13:12)
[2025-03-04] MEDS: VANCOMYCIN/WATER (PEG) 1.5 GM/300 ML BAG IVPB (13:06)
[2025-03-04 13:52] LABS: Vancomycin, Trough 19.6 ug/mL (10.0-20.0)
[2025-03-04] MEDS: Normal Saline Flush 10 ML SYR IVP (14:58)
[2025-03-12] MEDS: VANCOMYCIN/WATER (PEG) 1.25 GM/250 ML BAG IVPB (13:33)
[2025-03-12] MEDS: Normal Saline Flush 10 ML SYR IVP (13:34)
[2025-03-13 13:05] VITALS: BP 132/65; PULSE 82; RESP 16; TEMP 37.1; O2SAT 96
[2025-03-13] MEDS: VANCOMYCIN/WATER (PEG) 1.25 GM/250 ML BAG IVPB (13:07)
[2025-03-13] MEDS: Normal Saline Flush 10 ML SYR IVP (13:08)
[2025-03-14] MEDS: Normal Saline Flush 10 ML SYR IVP (13:10)
[2025-03-14] MEDS: VANCOMYCIN/WATER (PEG) 1.25 GM/250 ML BAG IVPB (13:10)
[2025-03-14 13:23] LABS: Abs Immature Grans 0.02 10^3/uL (0.0-0.06); HCT 31.5 % (36.0-46.0); HGB 10.0 g/dL (11.2-15.7); Immature Grans % 0.3 %; MCH 29.4 pg (27.0-33.0); MCHC 31.7 % (32.0-36.0); MCV 93 fL (80-95); MPV 9.9 fL (8.0-11.0); Platelet Count 385 10^3/uL (130-400); RBC 3.40 10^6/uL (3.93-5.22); RDW 14.5 % (11.7-14.6); RDW-SD 48.7 fL; WBC 7.38 10^3/uL (4.4-10.8)
[2025-03-14 13:47] LABS: ALT 14 U/L (14-59); AST 20 U/L (15-37); Albumin 2.5 g/dL (3.4-5.0); Alkaline Phosphatase 140 U/L (46-116); Anion Gap 11.7 mmol/L (3-11); BUN 7 mg/dL (7-18); Bilirubin, Total 0.6 mg/dL (0.2-1.0); CO2 24.3 mmol/L (21.0-32.0); Calcium 9.4 mg/dL (8.5-10.1); Chloride 104 mmol/L (98-107); Estimated GFR 49.31 (mL/min/1.73m2); Glucose 192 mg/dL (74-106); Potassium 3.5 mmol/L (3.5-5.1); Sodium 140 mmol/L (136-145); Total Protein 6.1 g/dL (6.4-8.2)
[2025-03-15] MEDS: VANCOMYCIN/WATER (PEG) 1.25 GM/250 ML BAG IVPB (12:56)
[2025-03-15] MEDS: Normal Saline Flush 10 ML SYR IVP (12:56)
[2025-03-16] MEDS: Normal Saline Flush 10 ML SYR IVP (13:35)
[2025-03-17] MEDS: Normal Saline Flush 10 ML SYR IVP (13:00)
[2025-03-18] MEDS: Normal Saline Flush 10 ML SYR IVP (13:00)
[2025-03-19 13:08] VITALS: BP 132/65; PULSE 82; RESP 16; TEMP 37.1; O2SAT 96
[2025-03-19] MEDS: Normal Saline Flush 10 ML SYR IVP (13:10)
[2025-03-20] MEDS: Normal Saline Flush 10 ML SYR IVP (13:21)
[2025-03-20 13:38] VITALS: BP 128/70; PULSE 79; RESP 16; TEMP 37.1; O2SAT 98
[2025-03-21] MEDS: Normal Saline Flush 10 ML SYR IVP (13:09)
[2025-03-21 13:23] LABS: Abs Immature Grans 0.02 10^3/uL (0.0-0.06); HCT 31.5 % (36.0-46.0); HGB 10.1 g/dL (11.2-15.7); Immature Grans % 0.2 %; MCH 28.7 pg (27.0-33.0); MCHC 32.1 % (32.0-36.0); MCV 90 fL (80-95); MPV 9.8 fL (8.0-11.0); Platelet Count 408 10^3/uL (130-400); RBC 3.52 10^6/uL (3.93-5.22); RDW 14.5 % (11.7-14.6); RDW-SD 47.0 fL; WBC 9.27 10^3/uL (4.4-10.8)
[2025-03-21 13:44] LABS: ALT 8 U/L (14-59); AST 19 U/L (15-37); Albumin 2.7 g/dL (3.4-5.0); Alkaline Phosphatase 127 U/L (46-116); Anion Gap 11.6 mmol/L (3-11); BUN 9 mg/dL (7-18); Bilirubin, Total 0.9 mg/dL (0.2-1.0); C-Reactive Protein 3.82 mg/dL (<or=0.5); CO2 25.4 mmol/L (21.0-32.0); Calcium 10.2 mg/dL (8.5-10.1); Chloride 102 mmol/L (98-107); Creatine Kinase 35 U/L (26-192); Estimated GFR 34.91 (mL/min/1.73m2); Glucose 173 mg/dL (74-106); Potassium 3.3 mmol/L (3.5-5.1); Sodium 139 mmol/L (136-145); Total Protein 6.3 g/dL (6.4-8.2)
[2025-03-22 13:17] VITALS: BP 130/56; PULSE 73; RESP 20; TEMP 36.4; O2SAT 95
[2025-03-22] MEDS: Normal Saline Flush 10 ML SYR IVP (13:58)
[2025-03-23] MEDS: Normal Saline Flush 10 ML SYR IVP (13:09)
[2025-03-24] MEDS: Normal Saline Flush 10 ML SYR IVP (13:02)
== END 2025-03-24 23:59 | disposition home or self-care (01) ==
LOC: INF 02:17
PROVIDERS: Internal Medicine Infectious Disease; Nurse Practitioner; PCP Family Medicine; Visit Provider Family Medicine
DX: A49.02 Methicillin resistant Staphylococcus aureus infection, unspecified site (principal); T84.50XA Infection and inflammatory reaction due to unspecified internal joint prosthesis, initial encounter
CPT/HCPCS: 36569; 36592; 80053; 82550; 96365; 96366; 80202; 85025; 86140; J0878; J3373

== ENCOUNTER 2025-03-29 13:40 | Emergency (ER) | payer MEDICARE, BC, SELFPAY ==
[2025-03-29] VITALS (33 sets, daily range): BP systolic 109–163; BP diastolic 58–117; PULSE 65–105; RESP 12–24; TEMP 36.8; O2SAT 90–98
--- NOTE | 2025-03-29 13:45 | RT.EKG_ITS ---
APPROVED REPORT Exam: Resting ECG Reason for Exam: weakness Patient Location: E HR:105 bpm ECG Measurements Heart Rate 105 AXIS WI 148 P 34 QRSd 132 QRS -70 QT 396 T 70 QTc 524 Conclusion Sinus tachycardia...rate> 99 RBBB and LAFB...QRSd >120mS, axis(-40,240) Probable left ventricular hypertrophy...(RaVL+SV3)xQRSd >300 Sinus tachycardia left axis interventricular conduction delay
--- NOTE | 2025-03-29 15:05 | W.ED.GENAD ---
Discharge Plan Disposition Patient Disposition: Home Condition: Improving Discharge Details Clinical Impression: Hypokalemia, Hypomagnesemia Primary Care Provider: Melissa Garcia ED Provider: Harjit Vega Home Meds and New Rx's Prescriptions: New potassium chloride 10 mEq packet 10 meq PO DAILY 3 Days Qty: 3 0RF No Action ipratropium-albuterol 0.5 mg-3 mg(2.5 mg base)/3 mL solution for nebulization 3 ml inhalation Q4H PRN tizanidine 2 mg tablet 2 mg PO Q8H PRN fluconazole 100 mg tablet 100 mg PO DAILY PRN amlodipine 5 mg tablet 5 mg PO DAILY cholecalciferol (vitamin D3) 50 mcg (2,000 unit) capsule 50 mcg PO DAILY duloxetine 60 mg capsule,delayed release(DR/EC) 60 mg PO DAILY elderberry fruit See Rx Instructions PO DIRECTED Rx Instructions: orally as directed; metoprolol tartrate 100 mg tablet 100 mg PO DAILY nystatin 100,000 unit/mL suspension See Rx Instructions PO DIRECTED Rx Instructions: orally as directed; swish and swallow acetaminophen [Tylenol Arthritis Pain] 650 mg tablet extended release See Rx Instructions PO TID PRN Rx Instructions: orally three times a day PRN; albuterol sulfate 3 ML solution for nebulization 1 unit Inhalation QID PRN Patient Comments: 02/10/14- pt has not used for months, per pt methylprednisolone 4 MG tablet 4 mg PO DAILY leflunomide [Arava] 20 MG tablet 20 mg PO DAILY esomeprazole magnesium [Nexium] 40 MG capsule,delayed release(DR/EC) 40 mg PO DAILY zolpidem 10 MG tablet 10 mg PO HS ondansetron HCl 4 mg tablet 4 mg PO Q8H PRN PRN albuterol sulfate [Ventolin HFA] 90 mcg/actuation Hfa Aerosol Inhaler 2 puff inhalation Q4H PRN PRNQty: 8.5 0RF montelukast [Singulair] 10 mg tablet 10 mg PO QHS lisinopril 10 mg tablet 10 mg PO DAILY calcium citrate 200 mg (950 mg) tablet 200 mg PO BID Patient Comments: TAKE ONE TABLET BY MOUTH ONCE DAILY folic acid 800 mcg tablet 0.8 mg PO DAILY Patient Comments: TAKE ONE TABLET BY MOUTH EVERY DAY IN THE MORNING. duloxetine 30 mg Capsule,Delayed Release(Dr/Ec) 30 mg PO DAILY Qty: 7 0RF linezolid 600 mg Tablet 600 mg PO Q12H Qty: 8 0RF atorvastatin 20 mg tablet 10 mg PO QPM Qty: 0 0RF Patient Comments: TAKE 1 TABLET BY MOUTH EVERY NIGHT AT BEDTIME Bio-K plus 50 billion cell capsule,delayed release(DR/EC) 1 cap PO DAILY Qty: 7 0RF aspirin 81 mg Tablet,Chewable 81 mg PO DAILY Multi Vitamin 9 mg iron/15 mL Liquid 1 mg PO DAILY insulin lispro [Humalog KwikPen Insulin] 100 unit/mL Insulin Pen See Rx Instructions .ROUTE .COMPLEX Rx Instructions: Original sig- 10 units+SS sc tid with meals. Pt often skips breakfast and lunch dosing due to BG in range, normally injects 14 units sc with evening meal insulin glargine [Lantus Solostar U-100 Insulin] 100 unit/mL (3 mL) insulin pen 24 unit SUBCUT QAM indapamide 2.5 mg tablet 2.5 mg PO DAILY Patient Comments: TAKE ONE TABLET BY MOUTH ONCE DAILY oxycodone 5 mg tablet 5 mg PO PRN Patient Comments: TAKE 1 TO 2 TABLETS BY MOUTH AT BEDTIME NEEDED FOR PAIN prochlorperazine maleate 10 mg tablet 10 mg PO PRN Patient Comments: TAKE 1 TABLET BY MOUTH THREE TIMES DAILY FOR 10 DAYS Discharge Instructions Instructions: Hypokalemia, Hypomagnesemia Additional Instructions: Please follow-up with your primary care physician. Please return to the emergency department for any worsening symptoms HPI General Date/Time Provider Initiated Documentation: 03/29/25 13:51. HPI Narrative: 69-year-old female presents with generalized fatigue generalized weakness over the last couple of days, found on laboratory analysis to have low potassium, no chest pain or shortness of breath no nausea no vomiting. Related Data Home Medications ?Medication ?Instructions ?Recorded ?Confirmed albuterol sulfate 2.5 mg/3 mL 1 unit inhalation QID PRN 01/11/14 03/29/25 (0.083 %) solution for nebulization esomeprazole magnesium 40 mg 40 mg PO DAILY 01/11/14 03/29/25 capsule,delayed release (Nexium) leflunomide 20 mg tablet (Arava) 20 mg PO DAILY 01/11/14 03/29/25 methylprednisolone 4 mg tablet 4 mg PO DAILY 01/11/14 03/29/25 zolpidem 10 mg tablet 10 mg PO HS 01/11/14 03/29/25 aspirin 81 mg chewable tablet 81 mg PO DAILY 04/09/19 03/29/25 insulin lispro 100 unit/mL See Rx Instructions .Route .COMPLEX 04/09/19 03/29/25 subcutaneous pen (Humalog KwikPen (U-100) Insulin) multivitamin with minerals-iron 1 mg PO DAILY 04/09/19 03/29/25 fumarate 9 mg iron/15 mL oral liquid (Multi Vitamin) ondansetron HCl 4 mg tablet 4 mg PO Q8H PRN PRN 05/10/22 03/29/25 albuterol sulfate 90 mcg/actuation 2 puff inhalation Q4H PRN PRN #8.5 05/13/22 03/29/25 aerosol inhaler (Ventolin HFA) grams indapamide 2.5 mg tablet 2.5 mg PO DAILY 08/27/23 03/29/25 insulin glargine 100 unit/mL (3 24 unit subcut QAM 08/27/23 03/29/25 mL) subcutaneous pen (Lantus Solostar U-100 Insulin) lisinopril 10 mg tablet 10 mg PO DAILY 09/30/23 03/29/25 montelukast 10 mg tablet 10 mg PO QHS 09/30/23 03/29/25 (Singulair) calcium citrate 200 mg PO BID 10/01/23 03/29/25 folic acid 800 mcg tablet 0.8 mg PO DAILY 10/01/23 03/29/25 acetaminophen 650 mg See Rx Instructions PO TID PRN 12/11/23 03/29/25 tablet,extended release (Tylenol Arthritis Pain) amlodipine 5 mg tablet 5 mg PO DAILY 12/11/23 03/29/25 cholecalciferol (vitamin D3) 50 50 mcg PO DAILY 12/11/23 03/29/25 mcg (2,000 unit) capsule duloxetine 60 mg capsule,delayed 60 mg PO DAILY 12/11/23 03/29/25 release elderberry fruit See Rx Instructions PO DIRECTED 12/11/23 03/29/25 metoprolol tartrate 100 mg tablet 100 mg PO DAILY 12/11/23 03/29/25 nystatin 100,000 unit/mL oral See Rx Instructions PO DIRECTED 12/11/23 03/29/25 suspension fluconazole 100 mg tablet 100 mg PO DAILY PRN 03/16/24 03/29/25 ipratropium 0.5 mg-albuterol 3 mg 3 ml inhalation Q4H PRN 03/16/24 03/29/25 (2.5 mg base)/3 mL nebulization soln tizanidine 2 mg tablet 2 mg PO Q8H PRN 03/16/24 03/29/25 L. acidophilus,casei,rhamnosus 50 1 cap PO DAILY #7 caps 02/14/25 03/29/25 billion cell capsule,delayed release (Bio-K plus) atorvastatin 20 mg tablet 10 mg (1/2 x 20 mg) PO QPM #0 tabs 02/14/25 03/29/25 duloxetine 30 mg capsule,delayed 30 mg PO DAILY #7 caps 02/14/25 03/29/25 release linezolid 600 mg tablet 600 mg PO Q12H #8 tabs 02/14/25 03/29/25 oxycodone 5 mg tablet 5 mg PO PRN 03/29/25 03/29/25 potassium chloride 10 mEq oral 10 meq PO DAILY 3 days #3 ea 03/29/25 packet prochlorperazine maleate 10 mg 10 mg PO PRN 03/29/25 03/29/25 tablet Previous Rx's ?Medication ?Instructions ?Recorded albuterol sulfate 90 mcg/actuation 2 puff inhalation Q4H PRN PRN #8.5 05/13/22 aerosol inhaler (Ventolin HFA) grams L. acidophilus,casei,rhamnosus 50 1 cap PO DAILY #7 caps 02/14/25 billion cell capsule,delayed release (Bio-K plus) atorvastatin 20 mg tablet 10 mg (1/2 x 20 mg) PO QPM #0 tabs 02/14/25 duloxetine 30 mg capsule,delayed 30 mg PO DAILY #7 caps 02/14/25 release linezolid 600 mg tablet 600 mg PO Q12H #8 tabs 02/14/25 potassium chloride 10 mEq oral 10 meq PO DAILY 3 days #3 ea 03/29/25 packet Allergies Allergy/AdvReac Type Severity Reaction Status Date / Time capsaicin Allergy Severe Anaphylaxsi Unverified 03/29/25 14:08 s clarithromycin (From Biaxin) Allergy Intermediate Skin Rash Unverified 03/29/25 14:08 Penicillins Allergy Intermediate Skin Rash Unverified 03/29/25 14:08 Sulfa (Sulfonamide Allergy Intermediate Skin Rash Unverified 03/29/25 14:08 Antibiotics) nickel Allergy Mild Itching Unverified 03/29/25 14:08 acitretin Allergy Unknown Swelling/Ed Unverified 03/29/25 14:08 tc amoxicillin Allergy Unknown Unknown Unverified 03/29/25 14:08 jiang pepper Allergy Unknown Unknown Unverified 03/29/25 14:08 cefazolin Allergy Unknown Unknown Unverified 03/29/25 14:08 gabapentin Allergy Unknown Dizziness/L Unverified 03/29/25 14:08 ighthead infliximab (From Remicade) Allergy Unknown passed out Unverified 03/29/25 14:08 isoniazid Allergy Unknown Unknown Unverified 03/29/25 14:08 oxycodone Allergy Unknown Other (See Unverified 03/29/25 14:08 Comment) tramadol Allergy Unknown Other (See Unverified 03/29/25 14:08 Comment) General Stated Complaint: Dizzy/Sync ARABELLA: 3 Exam Narrative Exam Narrative: General: alert, no acute distress HEENT: normocephalic, atraumatic, neck supple, pupils equal round reactive to light, moist mucous membranes, tolerating secretions, normal voice, no rhinorrhea or otorrhea Respiratory: normal respiratory effort, lungs clear bilaterally, no wheezes rales or rhonchi Cardiac: regular rate and rhythm, no murmurs rubs or gallops; equal pulses bilaterally, warm well perfused Abdominal: soft, nontender, nondistended; no organomegaly or palpable masses MSK: normal range of motion of extremities, warm, well perfused Skin: warm, dry, no rashes or lesions Neuro: AAOx3, CN II-XII intact, 5/5 strength bilateral upper and lower extremities, normal speech, no ataxia Psych: normal mood, normal affect, calm, cooperative Course Vital Signs Vital signs: Vital Signs Temperature 36.8 C 03/29/25 13:57 Pulse 105 H 03/29/25 13:57 Respiratory Rate 16 03/29/25 13:57 Blood Pressure 123/79 03/29/25 13:57 Pulse Oximetry 95 03/29/25 13:57 Temperature 36.8 C 03/29/25 13:57 Temperature Source Oral 03/29/25 13:57 Pulse 105 H 03/29/25 13:57 Respiratory Rate 16 03/29/25 13:57 Blood Pressure 123/79 03/29/25 13:57 Pulse Oximetry 95 03/29/25 13:57 Oxygen Delivery Method Room Air 03/29/25 13:57 Oxygen Flow Rate 0 03/29/25 13:57 Pain Level 4 03/29/25 13:57 Comment pain at baseline 03/29/25 13:57 Medical Decision Making 69-year-old female presents with generalized fatigue generalized weakness over the last couple of days, alert oriented nonfocal neurologic examination hemodynamically stable initially low-grade tachycardia on EKG now sinus rhythm 75 bpm on monitor, found to have hypokalemia on outpatient labs referred in by primary care, no focal neurologic deficits no signs of trauma no signs of infection no signs of intoxication, high clinical suspicion for symptomatic hypokalemia, will assess basic labs EKG troponin magnesium level, will replete potassium pending repeat results. No evidence of CVA seizure intoxication infection or traumatic injury, low suspicion for ACS PE or aortic pathology given history physical and EKG 16: 51 patient requesting opioid pain medication for her chronic left lower leg pain, patient endorses she can have opiates if she was given Benadryl without issue. I have ordered repletion of her potassium and magnesium as well she also wants nausea medication. Disposition pending reassessment 18: 38 symptoms greatly improved. Resting comfortably no acute distress. Magnesium and potassium repleted. Patient has follow-up as an outpatient. Home care instructions and return precautions given Quality:SDOH Health Related Social Needs: Health related social needs education Health related social needs details pt independent at home with minimal assistance from spouse [facility] All Active Problems (Updated 03/29/25 @ 18:39 by Harjit Vega MD) Hypomagnesemia (Acute) Hypokalemia (Acute) Drug-induced skin rash (Acute) MRSA cellulitis (Acute) Chronic pain disorder (Chronic) Lumbar radiculitis (Acute) Postlaminectomy syndrome of lumbar region (Acute) GERD (gastroesophageal reflux disease) (Chronic) Diffuse spasm of esophagus (Acute) Spondylosis (Acute) Cardiomegaly (Acute) Heart murmur (Acute) Mild intermittent asthma (Acute) Pure hypercholesterolemia (Acute) Lymphedema (Acute) Peripheral venous insufficiency (Acute) Spasm of back muscles (Acute) Actinic keratosis (Acute) Aortic valve stenosis, nonrheumatic (Acute) Acute bronchitis (Acute) Fatigue (Acute) Nausea (Acute) Chronic cough (Acute) Snoring (Acute) Dyspnea on exertion (Acute) Daytime somnolence (Acute) Exacerbation of intermittent asthma (Acute) Otitis externa (Acute) Insomnia (Acute) Candidiasis of mouth (Acute) Influenza A (Acute) Diabetes mellitus (Chronic) Psoriatic arthritis (Acute) Renal insufficiency (Chronic) Polypharmacy (Acute) Bacteremia (Acute) Pneumonia (Acute) COVID (Acute) Cellulitis and abscess of foot (Acute) Contusion of right foot (Acute) Sepsis (Acute) Bone infection of left foot (Acute) Status post total left knee replacement (Acute) Pain (Acute) Lower extremity pain (Acute) Medical History Effusion of knee Vertigo Urinary disorder Skin disorder Syncope Musculoskeletal disease Motion sickness Liver disease Irregular heart beat Infection Genital disease, female Eye problem ENT disease Elevated cholesterol Digestive problems Complication of anesthesia Circulatory disease Cancer Breathing problem Basal cell carcinoma Chest pain Postoperative anemia due to acute blood loss Hyperlipidemia Hepatosplenomegaly Gait abnormality DVT (deep venous thrombosis) Complex regional pain syndrome type 2 of lower extremity Spinal stenosis Age related osteoporosis Abnormal liver function Failed total knee arthroplasty Fecal impaction Crushing injury of unspecified knee, sequela Chronic prescription opiate use History of falling Obesity Rupture of left quadriceps tendon Fracture of metatarsal of left foot, closed Pain in right ankle and joints of right foot Psoriasis Prepatellar bursitis Quadriceps tendon rupture History of basal cell carcinoma Loose orthopedic implant MOELLER (nonalcoholic steatohepatitis) Type 2 diabetes mellitus Asthma Arthritis Elevated troponin Severe sepsis Acute UTI Chronic pain Edema, peripheral Bacteremia due to group B Streptococcus Surgical History History of endoscopy History of laparotomy Hx of colonoscopy Status post left knee replacement Artificial knee joint present History of arthroplasty of left knee History of total knee arthroplasty History of lumbar surgery S/P revision of total knee Hx of hysterectomy Hx of spinal surgery Hx of laminectomy History of left knee replacement s/p revision for infected prosthesis Family History Brother Cancer family hx of cancer Sister Cancer Diabetes High cholesterol Hypertension Father Stroke Diabetes Coronary artery disease Heart disease High cholesterol Hypertension Thrombophilia Mother Mental disorder Osteoporosis Maternal Grandmother Breast cancer Cancer Sister High cholesterol Hypertension Diabetes Social History Smoking/Tobacco Use Status: Never Smoking risk assessment performed?: Yes Alcohol Intake: current Alcohol Intake frequency: holidays/special occasions only Drug use: Never Substance use type: marijuana Details: occasionally will do a THC edible Housing: house Do you feel safe at home: Yes Do you feel safe in your relationship?: Yes Additional Social history: Lives with in [place]. 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
[2025-03-29 15:16] LABS: Abs Immature Grans 0.03 10^3/uL (0.0-0.06); HCT 29.3 % (36.0-46.0); HGB 9.5 g/dL (11.2-15.7); Immature Grans % 0.3 %; MCH 28.2 pg (27.0-33.0); MCHC 32.4 % (32.0-36.0); MCV 87 fL (80-95); MPV 10.0 fL (8.0-11.0); Platelet Count 317 10^3/uL (130-400); RBC 3.37 10^6/uL (3.93-5.22); RDW 13.6 % (11.7-14.6); RDW-SD 43.4 fL; WBC 10.15 10^3/uL (4.4-10.8)
[2025-03-29 15:54] LABS: AST 20 U/L (15-37); Albumin 2.3 g/dL (3.4-5.0); Alkaline Phosphatase 96 U/L (46-116); Anion Gap 10.0 mmol/L (3-11); BUN 12 mg/dL (7-18); Bilirubin, Total 0.7 mg/dL (0.2-1.0); CO2 25.0 mmol/L (21.0-32.0); Calcium 8.6 mg/dL (8.5-10.1); Chloride 98 mmol/L (98-107); Estimated GFR 37.72 (mL/min/1.73m2); Glucose 167 mg/dL (74-106); Magnesium 1.4 mg/dL (1.8-2.4); Potassium 3.2 mmol/L (3.5-5.1); Sodium 133 mmol/L (136-145); Total Protein 5.9 g/dL (6.4-8.2); Troponin I 34 ng/L (<or=51)
[2025-03-29] MEDS: Ketorolac 15 MG/ML VIAL IVP (16:13)
[2025-03-29] MEDS: fentaNYL 100 MCG/2 ML VIAL 25 MCG IVP (17:02)
[2025-03-29] MEDS: diphenhydrAMINE 50 MG/ML VIAL 25 MG IVP (17:02)
[2025-03-29] MEDS: Ondansetron 4 MG/2 ML VIAL IVP (17:03)
[2025-03-29] MEDS: MAGNESIUM SULFATE 1 GM/100 ML BAG IV_INF (17:07)
[2025-03-29] MEDS: POTASSIUM CHLORIDE 10 MEQ/100 ML BAG 100 MEQ IV_INF (17:08)
[2025-03-29 17:16] LABS: ALT 8 U/L (14-59)
[2025-03-29] MEDS: ACETAMINOPHEN 1,000 MG/100 ML BAG 400 MG IVPB (17:21)
[2025-03-29 18:07] LABS: Troponin I 29 ng/L (<or=51)
--- NOTE | 2025-03-30 08:39 | NUR.NOTE ---
Nursing Note: this RN in chart D/T [facility] calling for a clarification on order
== END 2025-03-29 19:02 | disposition home or self-care (01) ==
PROVIDERS: Emergency Medicine Emergency Medical Services; Emergency Provider Emergency Medicine; PCP Family Medicine
DX: E87.6 Hypokalemia (principal); E83.42 Hypomagnesemia; I45.2 Bifascicular block; I25.2 Old myocardial infarction; E78.5 Hyperlipidemia, unspecified; I10 Essential (primary) hypertension; E11.9 Type 2 diabetes mellitus without complications; Z86.718 Personal history of other venous thrombosis and embolism; Z79.82 Long term (current) use of aspirin; Z79.4 Long term (current) use of insulin
CPT/HCPCS: 36415; 80053; 93005; 96365; 96374; 96375; 99284; 83735; 84484; 85025; 93010; J0131; J0878; J1200; J1885; J2405; J3010; J3475; J3480

== ENCOUNTER 2025-04-05 02:00 | Outpatient (RCR) | payer MEDICARE, BC, SELFPAY ==
[2025-03-26] MEDS: Normal Saline Flush 10 ML SYR IVP (14:20)
[2025-03-27] MEDS: Normal Saline Flush 10 ML SYR IVP (14:23)
[2025-03-28] MEDS: Normal Saline Flush 10 ML SYR IVP (13:06)
[2025-03-28 13:18] LABS: Abs Immature Grans 0.03 10^3/uL (0.0-0.06); HCT 29.2 % (36.0-46.0); HGB 9.6 g/dL (11.2-15.7); Immature Grans % 0.3 %; MCH 28.8 pg (27.0-33.0); MCHC 32.9 % (32.0-36.0); MCV 88 fL (80-95); MPV 10.2 fL (8.0-11.0); Platelet Count 357 10^3/uL (130-400); RBC 3.33 10^6/uL (3.93-5.22); RDW 13.9 % (11.7-14.6); RDW-SD 44.2 fL; WBC 9.14 10^3/uL (4.4-10.8)
[2025-03-28 13:40] LABS: ALT 6 U/L (14-59); AST 17 U/L (15-37); Albumin 2.3 g/dL (3.4-5.0); Alkaline Phosphatase 104 U/L (46-116); Anion Gap 10.5 mmol/L (3-11); BUN 11 mg/dL (7-18); Bilirubin, Total 0.6 mg/dL (0.2-1.0); C-Reactive Protein 9.18 mg/dL (<or=0.5); CO2 25.5 mmol/L (21.0-32.0); Calcium 8.9 mg/dL (8.5-10.1); Chloride 98 mmol/L (98-107); Creatine Kinase 40 U/L (26-192); Estimated GFR 34.91 (mL/min/1.73m2); Glucose 181 mg/dL (74-106); Potassium 3.0 mmol/L (3.5-5.1); Sodium 134 mmol/L (136-145); Total Protein 6.0 g/dL (6.4-8.2)
[2025-03-29] MEDS: Normal Saline Flush 10 ML SYR IVP (13:02)
[2025-03-30] MEDS: Normal Saline Flush 10 ML SYR IVP (13:08)
[2025-03-31] MEDS: Normal Saline Flush 10 ML SYR IVP (13:07)
[2025-04-01] MEDS: Normal Saline Flush 10 ML SYR IVP (13:46)
[2025-04-02 13:04] VITALS: BP 130/72; PULSE 82; RESP 16; TEMP 36.5; O2SAT 96
[2025-04-02] MEDS: Normal Saline Flush 10 ML SYR IVP (13:12)
[2025-04-03 12:50] VITALS: BP 134/65; PULSE 77; RESP 18; TEMP 36.6; O2SAT 95
[2025-04-03] MEDS: Normal Saline Flush 10 ML SYR IVP (13:10)
[2025-04-04] MEDS: Normal Saline Flush 10 ML SYR IVP (13:15)
[2025-04-04 13:27] LABS: Abs Immature Grans 0.04 10^3/uL (0.0-0.06); HCT 28.1 % (36.0-46.0); HGB 9.2 g/dL (11.2-15.7); Immature Grans % 0.4 %; MCH 28.3 pg (27.0-33.0); MCHC 32.7 % (32.0-36.0); MCV 87 fL (80-95); MPV 9.9 fL (8.0-11.0); Platelet Count 381 10^3/uL (130-400); RBC 3.25 10^6/uL (3.93-5.22); RDW 14.1 % (11.7-14.6); RDW-SD 43.9 fL; WBC 9.32 10^3/uL (4.4-10.8)
[2025-04-04 13:45] LABS: ALT 9 U/L (14-59); AST 21 U/L (15-37); Albumin 2.2 g/dL (3.4-5.0); Alkaline Phosphatase 109 U/L (46-116); Anion Gap 10.9 mmol/L (3-11); BUN 13 mg/dL (7-18); Bilirubin, Total 0.7 mg/dL (0.2-1.0); C-Reactive Protein 11.17 mg/dL (<or=0.5); CO2 25.1 mmol/L (21.0-32.0); Calcium 8.0 mg/dL (8.5-10.1); Chloride 97 mmol/L (98-107); Creatine Kinase 137 U/L (26-192); Estimated GFR 37.72 (mL/min/1.73m2); Glucose 182 mg/dL (74-106); Potassium 3.2 mmol/L (3.5-5.1); Sodium 133 mmol/L (136-145); Total Protein 6.1 g/dL (6.4-8.2)
[2025-04-05] MEDS: Normal Saline Flush 10 ML SYR IVP (13:18)
[2025-04-05] MEDS: Bacitracin 1 PACKET (13:18)
== END 2025-04-24 23:59 | disposition home or self-care (01) ==
LOC: INF 02:00
PROVIDERS: Nurse Practitioner; PCP Family Medicine; Visit Provider Family Medicine
DX: T84.50XA Infection and inflammatory reaction due to unspecified internal joint prosthesis, initial encounter (principal)
CPT/HCPCS: 36592; 80053; 82550; 96365; 85025; 86140; J0878

== ENCOUNTER 2025-04-22 10:40 | Emergency (ER) | payer MEDICARE, BC, SELFPAY ==
[2025-04-22] VITALS (60 sets, daily range): BP systolic 149; BP diastolic 60; PULSE 52–57; RESP 6–20; TEMP 36; O2SAT 100
--- NOTE | 2025-04-22 10:30 | RT.EKG_ITS ---
APPROVED REPORT Exam: Resting ECG Reason for Exam: chest pain, hypotension Patient Location: E HR:51 bpm ECG Measurements Heart Rate 51 AXIS MD [id number] P [id number] QRSd 155 QRS -45 QT 545 T 103 QTc 502 Conclusion A-flutter/fibrillation w/ complete AV block...A-rate>220, V-rate< 60, AV dissoc RBBB and LAFB...QRSd >120mS, axis(-40,240) LVH with secondary repolarization abnormality...multi-LVH criteria, abnrm ST-T Physician: unchanged
--- NOTE | 2025-04-22 10:45 | DI.RAD_ITS ---
Exam(s) XR PORTABLE CHEST AP EXAM: XR PORTABLE CHEST AP CLINICAL HISTORY: central chest pain. TECHNIQUE: 2D digital imaging was performed. COMPARISON: CR XR CHEST 2V PA LATERAL from 02/07/2025 FINDINGS: Single AP portable view. Heart size is upper normal. Calcified mitral valve annulus again noted. The mediastinum is not widened. Left lung remains clear. The previously described nodular density in the right lung is no longer seen. There are no pleural effusions. No pulmonary edema. IMPRESSION: Lungs are presently clear. Previously described nodular density in the right lung is no longer seen. Calcified mitral valve annulus again noted. No pulmonary edema. No obvious pleural effusions. DATA REPOSITORY: RADIATION DOSE DELIVERED:
--- NOTE | 2025-04-22 10:53 | W.ED.GENAD ---
Discharge Plan Disposition Patient Disposition: Home Condition: Good Discharge Details Clinical Impression: Rib lesion, Lung infiltrate, Tingling of upper extremity Primary Care Provider: Melissa Garcia ED Provider: Jayy Parish Home Meds and New Rx's Prescriptions: New gabapentin [Neurontin] 300 mg capsule 300 mg PO TID Qty: 90 0RF Rx Instructions: On the first day take 1 pill, on the second day take 1 pill twice daily, on the third day and for the remainder of the prescription take 1 pill 3 times a day. No Action ipratropium-albuterol 0.5 mg-3 mg(2.5 mg base)/3 mL solution for nebulization 3 ml inhalation Q4H PRN tizanidine 2 mg tablet 2 mg PO Q8H PRN fluconazole 100 mg tablet 100 mg PO DAILY PRN cholecalciferol (vitamin D3) 50 mcg (2,000 unit) capsule 50 mcg PO DAILY duloxetine 60 mg capsule,delayed release(DR/EC) 60 mg PO DAILY elderberry fruit See Rx Instructions PO DIRECTED Rx Instructions: orally as directed; metoprolol tartrate 100 mg tablet 100 mg PO DAILY nystatin 100,000 unit/mL suspension See Rx Instructions PO DIRECTED Rx Instructions: orally as directed; swish and swallow acetaminophen [Tylenol Arthritis Pain] 650 mg tablet extended release See Rx Instructions PO TID PRN Rx Instructions: orally three times a day PRN; methylprednisolone 4 MG tablet 4 mg PO DAILY leflunomide [Arava] 20 MG tablet 20 mg PO DAILY esomeprazole magnesium [Nexium] 40 MG capsule,delayed release(DR/EC) 40 mg PO DAILY zolpidem 10 MG tablet 10 mg PO HS ondansetron HCl 4 mg tablet 4 mg PO Q8H PRN PRN albuterol sulfate [Ventolin HFA] 90 mcg/actuation Hfa Aerosol Inhaler 2 puff inhalation Q4H PRN PRNQty: 8.5 0RF montelukast [Singulair] 10 mg tablet 10 mg PO DAILY lisinopril 10 mg tablet 40 mg PO DAILY calcium citrate 200 mg (950 mg) tablet 200 mg PO BID Patient Comments: TAKE ONE TABLET BY MOUTH ONCE DAILY folic acid 800 mcg tablet 0.8 mg PO DAILY Patient Comments: TAKE ONE TABLET BY MOUTH EVERY DAY IN THE MORNING. duloxetine 30 mg Capsule,Delayed Release(Dr/Ec) 30 mg PO DAILY Qty: 7 0RF aspirin 81 mg Tablet,Chewable 81 mg PO DAILY Multi Vitamin 9 mg iron/15 mL Liquid 1 mg PO DAILY insulin lispro [Humalog KwikPen Insulin] 100 unit/mL Insulin Pen See Rx Instructions .ROUTE .COMPLEX Patient Comments: 3 units for small meal 5 units for medium meal 7-8 units for large meal Do Not exceed 24 units a day Rx Instructions: Original sig- 10 units+SS sc tid with meals. Pt often skips breakfast and lunch dosing due to BG in range, normally injects 14 units sc with evening meal insulin glargine [Lantus Solostar U-100 Insulin] 100 unit/mL (3 mL) insulin pen 24 unit SUBCUT QAM indapamide 2.5 mg tablet 2.5 mg PO DAILY Patient Comments: TAKE ONE TABLET BY MOUTH ONCE DAILY oxycodone 5 mg tablet 5 mg PO PRN Patient Comments: TAKE 1 TO 2 TABLETS BY MOUTH AT BEDTIME NEEDED FOR PAIN prochlorperazine maleate 10 mg tablet 10 mg PO TID Patient Comments: TAKE 1 TABLET BY MOUTH THREE TIMES DAILY FOR 10 DAYS atorvastatin 20 mg tablet 10 mg PO DAILY Patient Comments: TAKE 1 TABLET BY MOUTH EVERY NIGHT AT BEDTIME (DME) lancets [OneTouch Delica Plus Lancet] 33 gauge misc MISCELLANEOUS Patient Comments: USE 1 LANCET TO CHECK GLUCOSE TWICE DAILY diphenhydramine HCl [Allergy (diphenhydramine)] 25 mg capsule 25 mg PO Q8H PRN diclofenac sodium 1 % kit 2 g topical BID PRN Rx Instructions: apply to single elbow, wrist or hand; for hand includes palm/fingers/back of hand ketoconazole 2 % cream 1 applic topical ONCE magnesium oxide 400 mg (241.3 mg magnesium) tablet 400 mg PO DAILY Patient Comments: TAKE 1 TABLET BY MOUTH ONCE DAILY potassium chloride [Klor-Con M20] 20 mEq tablet,ER particles/crystals 20 meq PO DAILY Discharge Instructions Instructions: Paresthesia (DC) Additional Instructions: At this time your laboratory workup has returned did not is reassuring. However there are a few concerns that I have. 1. You do have evidence of a small amount of infiltrate in your lungs. You do appear to be on the appropriate antibiotic doxycycline for this. Please follow-up closely with your primary care provider for reassessment of this next week. 2. You have some small sclerotic lesions on your ribs. This is unlikely to be secondary to cancer, however this is something that we think about. Please follow-up closely with your primary care provider for reassessment and repeat imaging to make sure there is no change. 3. Please take the gabapentin as prescribed to help with the tingling in your hands. This can make you notably fatigued. Please follow-up closely with your PCP next week to make sure your symptoms are improving. If you notice any worsening of your symptoms, or any new symptoms such as vomiting, diarrhea, fever, chills, shortness of breath, chest pain, numbness, weakness, or fainting , please return immediately to the emergency department for reevaluation. Please follow up with your primary care provider as soon as possible for reassessment and reevaluation. As always, it was a pleasure participating in your medical care today. Referrals: Melissa Garcia [Primary Care Provider, Medicine] HPI General Date/Time Provider Initiated Documentation: 04/22/25 10:50. HPI Narrative: This is a pleasant 69-year-old female with a past medical history of diabetes mellitus, rheumatoid arthritis, chronic immunosuppression from medication, previous MRSA, recently on vancomycin and having subsequent dress like reaction with peeling of her hands and subsequent pain over the last few weeks of her upper extremities and tingling in her hands, previous history of NSTEMI, but cardiac catheterization was relatively benign, history of cardiomegaly, GERD, high cholesterol, aortic valve stenosis, asthma, previous orthopedic knee surgeries, who presents today for evaluation of chest discomfort. Patient was at her primary care provider's office for a scheduled appointment to discuss the hand tingling and chronic achiness after the vancomycin. While there about 30 minutes prior to arrival here she developed central chest/back pain. She states that the pain is primarily in her back, it is achy and persistent in nature. There is some radiation to the anterior chest. It is not pleuritic. She does have associated shortness of breath, but denies any significant pleuritic chest pain. No abdominal pain nausea vomiting or cough. No fever or chills. EMS was called, she was given nitroglycerin at 0.4 mg and her blood pressure went down to the 80s systolic. EMS subsequently gave a 250 cc bolus of normal saline which improved her blood pressure after this. She also received 324 aspirin. After the nitroglycerin and the aspirin her pain went from a 7-3 on the chest pain scale. Patient otherwise has no other complaints. She denies any recent long trips surgeries or procedures. She denies any recent falls or trauma. No other modifying factors. Related Data Home Medications ?Medication ?Instructions ?Recorded ?Confirmed esomeprazole magnesium 40 mg 40 mg PO DAILY 01/11/14 04/22/25 capsule,delayed release (Nexium) leflunomide 20 mg tablet (Arava) 20 mg PO DAILY 01/11/14 04/22/25 methylprednisolone 4 mg tablet 4 mg PO DAILY 01/11/14 04/22/25 zolpidem 10 mg tablet 10 mg PO HS 01/11/14 04/22/25 aspirin 81 mg chewable tablet 81 mg PO DAILY 04/09/19 04/22/25 insulin lispro 100 unit/mL See Rx Instructions .Route .COMPLEX 04/09/19 04/22/25 subcutaneous pen (Humalog KwikPen (U-100) Insulin) multivitamin with minerals-iron 1 mg PO DAILY 04/09/19 04/22/25 fumarate 9 mg iron/15 mL oral liquid (Multi Vitamin) ondansetron HCl 4 mg tablet 4 mg PO Q8H PRN PRN 05/10/22 04/22/25 albuterol sulfate 90 mcg/actuation 2 puff inhalation Q4H PRN PRN #8.5 05/13/22 04/22/25 aerosol inhaler (Ventolin HFA) grams indapamide 2.5 mg tablet 2.5 mg PO DAILY 08/27/23 04/22/25 insulin glargine 100 unit/mL (3 24 unit subcut QAM 08/27/23 04/22/25 mL) subcutaneous pen (Lantus Solostar U-100 Insulin) Held on 04/22/25. Instructions: hold - not eating well lisinopril 10 mg tablet 40 mg PO DAILY 09/30/23 04/22/25 montelukast 10 mg tablet 10 mg PO DAILY 09/30/23 04/22/25 (Singulair) calcium citrate 200 mg PO BID 10/01/23 04/22/25 folic acid 800 mcg tablet 0.8 mg PO DAILY 10/01/23 04/22/25 acetaminophen 650 mg See Rx Instructions PO TID PRN 12/11/23 04/22/25 tablet,extended release (Tylenol Arthritis Pain) cholecalciferol (vitamin D3) 50 50 mcg PO DAILY 12/11/23 04/22/25 mcg (2,000 unit) capsule duloxetine 60 mg capsule,delayed 60 mg PO DAILY 12/11/23 04/22/25 release elderberry fruit See Rx Instructions PO DIRECTED 12/11/23 04/22/25 metoprolol tartrate 100 mg tablet 100 mg PO DAILY 12/11/23 04/22/25 nystatin 100,000 unit/mL oral See Rx Instructions PO DIRECTED 12/11/23 04/22/25 suspension fluconazole 100 mg tablet 100 mg PO DAILY PRN 03/16/24 04/22/25 ipratropium 0.5 mg-albuterol 3 mg 3 ml inhalation Q4H PRN 03/16/24 04/22/25 (2.5 mg base)/3 mL nebulization soln tizanidine 2 mg tablet 2 mg PO Q8H PRN 03/16/24 04/22/25 duloxetine 30 mg capsule,delayed 30 mg PO DAILY #7 caps 02/14/25 04/22/25 release oxycodone 5 mg tablet 5 mg PO PRN 03/29/25 04/22/25 prochlorperazine maleate 10 mg 10 mg PO TID 03/29/25 04/22/25 tablet atorvastatin 20 mg tablet 10 mg PO DAILY 04/22/25 04/22/25 diclofenac sodium 1 % gel topical 2 g topical BID PRN 04/22/25 04/22/25 kit diphenhydramine HCl 25 mg capsule 25 mg PO Q8H PRN 04/22/25 04/22/25 (Allergy (diphenhydramine)) gabapentin 300 mg capsule 300 mg PO TID #90 caps 04/22/25 (Neurontin) ketoconazole 2 % topical cream 1 applic topical ONCE 04/22/25 04/22/25 lancets 33 gauge (OneTouch Delica 04/22/25 04/22/25 Plus Lancet) magnesium oxide 400 mg (241.3 mg 400 mg PO DAILY 04/22/25 04/22/25 magnesium) tablet potassium chloride 20 mEq 20 meq PO DAILY 04/22/25 04/22/25 tablet,extended release(part/cryst) (Klor-Con M) Previous Rx's ?Medication ?Instructions ?Recorded albuterol sulfate 90 mcg/actuation 2 puff inhalation Q4H PRN PRN #8.5 05/13/22 aerosol inhaler (Ventolin HFA) grams duloxetine 30 mg capsule,delayed 30 mg PO DAILY #7 caps 02/14/25 release gabapentin 300 mg capsule 300 mg PO TID #90 caps 04/22/25 (Neurontin) Allergies Allergy/AdvReac Type Severity Reaction Status Date / Time capsaicin Allergy Severe Anaphylaxsi Unverified 04/22/25 11:21 s clarithromycin (From Biaxin) Allergy Intermediate Skin Rash Unverified 04/22/25 11:21 Penicillins Allergy Intermediate Skin Rash Unverified 04/22/25 11:21 Sulfa (Sulfonamide Allergy Intermediate Skin Rash Unverified 04/22/25 11:21 Antibiotics) nickel Allergy Mild Itching Unverified 04/22/25 11:21 acitretin Allergy Unknown Swelling/Ed Unverified 04/22/25 11:21 tc amoxicillin Allergy Unknown Unknown Unverified 04/22/25 11:21 jiang pepper Allergy Unknown Unknown Unverified 04/22/25 11:21 cefazolin Allergy Unknown Unknown Unverified 04/22/25 11:21 gabapentin Allergy Unknown Dizziness/L Unverified 04/22/25 11:21 ighthead infliximab (From Remicade) Allergy Unknown passed out Unverified 04/22/25 11:21 isoniazid Allergy Unknown Unknown Unverified 04/22/25 11:21 oxycodone Allergy Unknown Other (See Unverified 04/22/25 11:21 Comment) tramadol Allergy Unknown Other (See Unverified 04/22/25 11:21 Comment) General Stated Complaint: Chest Pain ARABELLA: 2 Exam Narrative Exam Narrative: 1.Const: Well-nourished, Well-developed, appearing stated age 2.Eyes: PERRL, no conjunctival injection, and symmetrical lids. 3.ENT: Atraumatic external nose and ears. Moist MM. Neck: Symmetric, trachea midline, No thyromegaly. 4.CVS: +S1/S2, Peripheral pulses 2+ and equal in all extremities. Brisk capillary refill in all extremities. 5.RESP: Unlabored respiratory effort. Clear to auscultation bilaterally. No wheezes rales or rhonchi 6.GI: Soft, Nontender/Nondistended, No hepatosplenomegaly. No guarding or rebound. 7.MSK: Normocephalic/Atraumatic, Extremities w/o deformity or ttp No cyanosis or clubbing, Normal movement of all extremities 8.Skin: Warm, Dry. No rashes or lesions. 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 Sensation grossly intact, no focal neurologic deficits. 10.Psych: (AAO) x3. Appropriate mood and affect Course Vital Signs Vital signs: Vital Signs Pulse 53 L 04/22/25 10:41 Respiratory Rate 16 04/22/25 10:41 Blood Pressure 149/60 H 04/22/25 10:41 Pulse Oximetry 100 04/22/25 10:41 Pulse 53 L 04/22/25 10:41 Respiratory Rate 16 04/22/25 10:41 Blood Pressure 149/60 H 04/22/25 10:41 Pulse Oximetry 100 04/22/25 10:41 Oxygen Delivery Method Room Air 04/22/25 10:41 Oxygen Flow Rate 0 04/22/25 10:41 Pain Level 3 04/22/25 10:41 Medical Decision Making This is a pleasant 69-year-old female with a past medical history of diabetes mellitus, rheumatoid arthritis, chronic immunosuppression from medication, previous MRSA, recently on vancomycin and having subsequent dress like reaction with peeling of her hands and subsequent pain over the last few weeks of her upper extremities and tingling in her hands, previous history of NSTEMI, but cardiac catheterization was relatively benign, history of cardiomegaly, GERD, high cholesterol, aortic valve stenosis, asthma, previous orthopedic knee surgeries, who presents today for evaluation of chest discomfort. Patient was at her primary care provider's office for a scheduled appointment to discuss the hand tingling and chronic achiness after the vancomycin. While there about 30 minutes prior to arrival here she developed central chest/back pain. She states that the pain is primarily in her back, it is achy and persistent in nature. There is some radiation to the anterior chest. It is not pleuritic. She does have associated shortness of breath, but denies any significant pleuritic chest pain. No abdominal pain nausea vomiting or cough. No fever or chills. EMS was called, she was given nitroglycerin at 0.4 mg and her blood pressure went down to the 80s systolic. EMS subsequently gave a 250 cc bolus of normal saline which improved her blood pressure after this. She also received 324 aspirin. After the nitroglycerin and the aspirin her pain went from a 7-3 on the chest pain scale. Patient otherwise has no other complaints. She denies any recent long trips surgeries or procedures. She denies any recent falls or trauma. No other modifying factors. Exam demonstrates a well-appearing female, no acute distress. Mild achiness in her back but is not reproducible. No midline cervical thoracic or lumbar spine tenderness. No significant anterior chest wall tenderness on palpation. No rash or evidence of shingles. Differential is broad but includes musculoskeletal etiology, GERD, esophagitis, cardiac etiology although ACS is unlikely. PE is also less likely. Fracture or tumor or masses of concern. Will evaluate for these etiologies, monitor closely and reassess. Will start with a portable chest x-ray, plan for further CT imaging if indicated. EKG shows no evidence of STEMI 1:48 PM Laboratory workup has returned, the patient has no significant white count, WBC count is 11.23 at this time, platelets are 437, no bandemia. Absolute neutrophils are 7.36. Electrolytes normal, renal function at baseline, serial troponins normal, proBNP elevated at 4200, but no evidence of congestive heart failure clinically. Patient's pain on reassessment is completely resolved. CT imaging shows no evidence of acute process for the chest or back, however there are few atypical components. There is some groundglass infiltrate in the right upper lobe however clinically she has no cough or shortness of breath. She has no fever or chills. She is on doxycycline for chronic infection already. In addition to this she also has some atypical lesions on her left 5th, 6th and 7th rib, which are sclerotic in nature. This may represent a sclerotic metastasis, however on CT imaging of the abdomen from just 2 months ago, and CT imaging of the chest today there is no evidence of mass or tumor at that time to suggest a metastatic source. Additionally with the tingling and neuralgias that she is having in her fingers and hands post vancomycin reaction I do feel that gabapentin would be an appropriate therapy for this. With the patient's imaging showing no evidence of significant aortic pathology, no signs of fracture or mass, and no evidence of pneumothorax I do not feel that any further workup is indicated in that regard. With serial troponins and EKG being stable I do not see evidence to suggest cardiac etiology. I did contact her primary care provider Melissa Tineo, and discussed all of these findings. She will follow-up with the rib lesions. She will follow-up next week in regards to the pulmonary component to make sure she has no symptoms that suggest development of pneumonia. Additionally she will also reassess to make sure that the gabapentin is being beneficial or therapeutic. Patient otherwise stable for discharge. Discussed red flags for which to return. I have extensively reviewed the treatment plan and discharge instructions with the patient and their family. I have addressed all patient concerns at this time. The patient and family was made aware of what symptoms to monitor for that would warrant a return to the emergency department. Discussed the plan with the patient and family, they demonstrate verbal understanding and agreement with our assessment and plan at this time. The documentation in this chart was dictated using [employer] dictation software. Please excuse any dictation errors. FINDINGS: CHEST: LUNGS: There is significant area of ground-glass infiltrate in the right upper lobe, this not evident on today's portable AP chest x-ray. There is also some increased subpleural markings in the anterior segment of the right upper lobe. There is also a small nodular density in the right upper lobe measuring 6 mm. No pleural effusion on the right side. There is a small-moderate size pleural effusion. Mild atelectasis in the basal segments of the left lower lobe. No significant focal findings in the trachea and mainstem bronchi. MEDIASTINUM: There is no obvious hilar nor mediastinal adenopathy. There is a nodule in the right thyroid lobe which measures approximately 1.7 x 1.0 cm. No obvious nodule seen in the left thyroid lobe. CARDIAC: Heart size is normal. There is no pericardial effusion. There is heavy calcification in the mitral valve annulus as well as in region of the aortic valve and leaflets.The diameter of the ascending thoracic aorta is within normal limits. Diameter of the aortic arch is upper normal. There is calcified plaque at the origin of the great vessels off the aortic arch. The diameter of the ascending thoracic aorta is normal. Please note that cannot assess for dissection without IV contrast. VISUALIZED UPPER ABDOMEN:Gallbladder surgically absent. There are no adrenal masses. Spleen size normal. No ascites. OSSEOUS: There are no thoracic vertebral fractures. No sternal fractures. No right rib fractures. There is a nondisplaced subacute appearing left 4th rib fracture in the anterior lateral aspect of the rib. There is sclerotic density in the anterior lateral aspect of the left 5th rib. Also similar finding in the anterior aspect of the left 6 rib. Healing fracture site in the lateral aspect of the 7th rib but also adjacent sclerotic density. No significant findings in left 8th rib, 9th rib and 10th rib. There are no lytic expansile rib lesions. THORACIC SPINAL COLUMN: There are no compression fractures of the thoracic vertebrae. No listhesis. There is calcification within the middle aspect of the disc space at T7-8 level. There are no lytic nor blastic lesions evident within the vertebral bodies. Facet joints unremarkable. No malalignment. IMPRESSION: 1. There is ground-glass infiltrate in the right upper lobe. Also mild infiltrate in the anterior segment of the right upper lobe. No pleural effusion on the right side. 2. There is a small-moderate size left pleural effusion. 3. Heavily calcified mitral valve in the heart as well as calcified aortic valve. Diameter of the thoracic aorta is within normal limits. Please note that cannot assess for dissection without IV contrast. 4. There is a nondisplaced subacute appearing left 4th rib fracture. There also sclerotic densities in the anterolateral aspect of the left 5th and 6th ribs and 7th ribs. These may represent sclerotic metastases. Called to ER 04/22/2025 at 12:30 p.m. Quality:SDOH Health Related Social Needs: Health related social needs education Health related social needs details pt independent at home with minimal assistance from spouse PFS All Active Problems (Updated 04/22/25 @ 13:07 by Jayy Parish DO) Tingling of upper extremity (Acute) Lung infiltrate (Acute) Rib lesion (Acute) Hypomagnesemia (Acute) Hypokalemia (Acute) MRSA cellulitis (Acute) Chronic pain disorder (Chronic) Lumbar radiculitis (Acute) Postlaminectomy syndrome of lumbar region (Acute) GERD (gastroesophageal reflux disease) (Chronic) Diffuse spasm of esophagus (Acute) Spondylosis (Acute) Cardiomegaly (Acute) Heart murmur (Acute) Mild intermittent asthma (Acute) Pure hypercholesterolemia (Acute) Lymphedema (Acute) Peripheral venous insufficiency (Acute) Spasm of back muscles (Acute) Actinic keratosis (Acute) Aortic valve stenosis, nonrheumatic (Acute) Acute bronchitis (Acute) Fatigue (Acute) Nausea (Acute) Chronic cough (Acute) Snoring (Acute) Dyspnea on exertion (Acute) Daytime somnolence (Acute) Exacerbation of intermittent asthma (Acute) Otitis externa (Acute) Insomnia (Acute) Candidiasis of mouth (Acute) Influenza A (Acute) Diabetes mellitus (Chronic) Psoriatic arthritis (Acute) Renal insufficiency (Chronic) Polypharmacy (Acute) Bacteremia (Acute) Pneumonia (Acute) COVID (Acute) Cellulitis and abscess of foot (Acute) Contusion of right foot (Acute) Sepsis (Acute) Bone infection of left foot (Acute) Status post total left knee replacement (Acute) Pain (Acute) Lower extremity pain (Acute) Medical History Effusion of knee Vertigo Urinary disorder Skin disorder Syncope Musculoskeletal disease Motion sickness Liver disease Irregular heart beat Infection Genital disease, female Eye problem ENT disease Elevated cholesterol Digestive problems Complication of anesthesia Circulatory disease Cancer Breathing problem Basal cell carcinoma Chest pain Postoperative anemia due to acute blood loss Hyperlipidemia Hepatosplenomegaly Gait abnormality DVT (deep venous thrombosis) Complex regional pain syndrome type 2 of lower extremity Spinal stenosis Age related osteoporosis Abnormal liver function Failed total knee arthroplasty Fecal impaction Crushing injury of unspecified knee, sequela Chronic prescription opiate use History of falling Obesity Rupture of left quadriceps tendon Fracture of metatarsal of left foot, closed Pain in right ankle and joints of right foot Psoriasis Prepatellar bursitis Quadriceps tendon rupture History of basal cell carcinoma Loose orthopedic implant MOELLER (nonalcoholic steatohepatitis) Type 2 diabetes mellitus Asthma Arthritis Elevated troponin Severe sepsis Acute UTI Chronic pain Edema, peripheral Bacteremia due to group B Streptococcus Surgical History History of endoscopy History of laparotomy Hx of colonoscopy Status post left knee replacement Artificial knee joint present History of arthroplasty of left knee History of total knee arthroplasty History of lumbar surgery S/P revision of total knee Hx of hysterectomy Hx of spinal surgery Hx of laminectomy History of left knee replacement s/p revision for infected prosthesis Family History Brother Cancer family hx of cancer Sister Cancer Diabetes High cholesterol Hypertension Father Stroke Diabetes Coronary artery disease Heart disease High cholesterol Hypertension Thrombophilia Mother Mental disorder Osteoporosis Maternal Grandmother Breast cancer Cancer Sister High cholesterol Hypertension Diabetes Social History Smoking/Tobacco Use Status: Never Smoking risk assessment performed?: Yes Alcohol Intake: current Alcohol Intake frequency: holidays/special occasions only Drug use: Never Substance use type: marijuana Details: occasionally will do a THC edible Housing: house Do you feel safe at home: Yes Do you feel safe in your relationship?: Yes Additional Social history: Lives with in [place]. 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
[2025-04-22 11:07] LABS: Abs Immature Grans 0.05 10^3/uL (0.0-0.06); HCT 36.8 % (36.0-46.0); HGB 11.6 g/dL (11.2-15.7); Immature Grans % 0.4 %; MCH 27.2 pg (27.0-33.0); MCHC 31.5 % (32.0-36.0); MCV 86 fL (80-95); MPV 10.2 fL (8.0-11.0); Platelet Count 437 10^3/uL (130-400); RBC 4.26 10^6/uL (3.93-5.22); RDW 15.5 % (11.7-14.6); RDW-SD 49.2 fL; WBC 11.23 10^3/uL (4.4-10.8)
[2025-04-22 11:20] LABS: INR 1.1 (0.9-1.1); PTT Activated 25.0 sec (20.6-30.2); Prothrombin Time 11.1 sec (9.1-11.1)
[2025-04-22 11:29] LABS: ALT 18 U/L (14-59); AST 27 U/L (15-37); Albumin 3.3 g/dL (3.4-5.0); Alkaline Phosphatase 110 U/L (46-116); Anion Gap 11.0 mmol/L (3-11); BUN 21 mg/dL (7-18); Bilirubin, Total 0.6 mg/dL (0.2-1.0); CO2 29.0 mmol/L (21.0-32.0); Calcium 9.5 mg/dL (8.5-10.1); Chloride 98 mmol/L (98-107); Estimated GFR 37.72 (mL/min/1.73m2); Glucose 247 mg/dL (74-106); Lipase 23 U/L (<78); NT-proBNP 4223 pg/mL (<300); Potassium 3.7 mmol/L (3.5-5.1); Sodium 138 mmol/L (136-145); Total Protein 6.9 g/dL (6.4-8.2); Troponin I 20 ng/L (<or=51)
--- NOTE | 2025-04-22 11:33 | DI.CT_ITS ---
Exam(s) CT THORACIC SPINE RECONS CT CHEST WO EXAM: CT CHEST WO CLINICAL HISTORY: chest and back pain at t4 level. TECHNIQUE: Multi planar reconstructions were performed. CONTRAST MATERIAL: None COMPARISON: CT CT ABDOMEN PELVIS W from 02/07/2025 CR XR PORTABLE CHEST AP from 04/22/[address] THORACIC SPINE RECONS from 04/22/2025 FINDINGS: CHEST: LUNGS: There is significant area of ground-glass infiltrate in the right upper lobe, this not evident on today's portable AP chest x-ray. There is also some increased subpleural markings in the anterior segment of the right upper lobe. There is also a small nodular density in the right upper lobe measuring 6 mm. No pleural effusion on the right side. There is a small-moderate size pleural effusion. Mild atelectasis in the basal segments of the left lower lobe. No significant focal findings in the trachea and mainstem bronchi. MEDIASTINUM: There is no obvious hilar nor mediastinal adenopathy. There is a nodule in the right thyroid lobe which measures approximately 1.7 x 1.0 cm. No obvious nodule seen in the left thyroid lobe. CARDIAC: Heart size is normal. There is no pericardial effusion. There is heavy calcification in the mitral valve annulus as well as in region of the aortic valve and leaflets.The diameter of the ascending thoracic aorta is within normal limits. Diameter of the aortic arch is upper normal. There is calcified plaque at the origin of the great vessels off the aortic arch. The diameter of the ascending thoracic aorta is normal. Please note that cannot assess for dissection without IV contrast. VISUALIZED UPPER ABDOMEN:Gallbladder surgically absent. There are no adrenal masses. Spleen size normal. No ascites. OSSEOUS: There are no thoracic vertebral fractures. No sternal fractures. No right rib fractures. There is a nondisplaced subacute appearing left 4th rib fracture in the anterior lateral aspect of the rib. There is sclerotic density in the anterior lateral aspect of the left 5th rib. Also similar finding in the anterior aspect of the left 6 rib. Healing fracture site in the lateral aspect of the 7th rib but also adjacent sclerotic density. No significant findings in left 8th rib, 9th rib and 10th rib. There are no lytic expansile rib lesions. THORACIC SPINAL COLUMN: There are no compression fractures of the thoracic vertebrae. No listhesis. There is calcification within the middle aspect of the disc space at T7-8 level. There are no lytic nor blastic lesions evident within the vertebral bodies. Facet joints unremarkable. No malalignment. IMPRESSION: 1. There is ground-glass infiltrate in the right upper lobe. Also mild infiltrate in the anterior segment of the right upper lobe. No pleural effusion on the right side. 2. There is a small-moderate size left pleural effusion. 3. Heavily calcified mitral valve in the heart as well as calcified aortic valve. Diameter of the thoracic aorta is within normal limits. Please note that cannot assess for dissection without IV contrast. 4. There is a nondisplaced subacute appearing left 4th rib fracture. There also sclerotic densities in the anterolateral aspect of the left 5th and 6th ribs and 7th ribs. These may represent sclerotic metastases. Called to ER 04/22/2025 at 12:30 p.m. RADIATION DOSE DELIVERED: Total DLP DATA REPOSITORY: All CT scans at this facility are submitted to the National Radiology Data Registry (NRDR) Dose Index Registry (DIR) with the [employer] (ACR). RADIATION OPTIMIZATION: All CT scans at this facility use at least one of these dose optimization techniques: automated exposure control; mA and/or kV adjustment per patient size (includes targeted exams where dose is matched to clinical indication); or iterative reconstruction.
[2025-04-22 12:27] LABS: Troponin I 19 ng/L (<or=51)
[2025-04-22] MEDS: Gabapentin 300 MG CAP 600 MG PO (13:20)
== END 2025-04-22 13:21 | disposition home or self-care (01) ==
PROVIDERS: Emergency Provider Student in an Organized Health Care Education/Training Program; PCP Family Medicine
DX: R91.8 Other nonspecific abnormal finding of lung field (principal); R20.2 Paresthesia of skin; M89.9 Disorder of bone, unspecified
CPT/HCPCS: 99285; 99284; 71250; 80053; 83690; 93005; 71045; 83880; 84484; 85025; 85610; 85730; 93010

== ENCOUNTER 2025-04-28 20:01 | Outpatient (REF) | payer MEDICARE, BC, SELFPAY ==
[2025-04-26 22:30] LABS: Abs Immature Grans 0.02 10^3/uL (0.0-0.06); HCT 38.3 % (36.0-46.0); HGB 11.9 g/dL (11.2-15.7); Immature Grans % 0.2 %; MCH 27.5 pg (27.0-33.0); MCHC 31.1 % (32.0-36.0); MCV 89 fL (80-95); MPV 12.2 fL (8.0-11.0); Platelet Count 417 10^3/uL (130-400); RBC 4.32 10^6/uL (3.93-5.22); RDW 15.6 % (11.7-14.6); RDW-SD 50.5 fL; WBC 9.24 10^3/uL (4.4-10.8)
[2025-04-26 22:32] LABS: ALT 16 U/L (14-59); AST 24 U/L (15-37); Albumin 3.6 g/dL (3.4-5.0); Alkaline Phosphatase 116 U/L (46-116); Anion Gap 11.2 mmol/L (3-11); BUN 31 mg/dL (7-18); Bilirubin, Total 0.5 mg/dL (0.2-1.0); CO2 27.8 mmol/L (21.0-32.0); Calcium 9.8 mg/dL (8.5-10.1); Chloride 100 mmol/L (98-107); Estimated GFR 40.98 (mL/min/1.73m2); Glucose 155 mg/dL (74-106); Magnesium 1.6 mg/dL (1.8-2.4); Potassium 4.0 mmol/L (3.5-5.1); Sodium 139 mmol/L (136-145); Total Protein 6.8 g/dL (6.4-8.2)
[2025-04-27 16:51] LABS: Total Protein 6.7 g/dL (6.3-8.2)
[2025-04-27 16:56] LABS: CRP, High Sensitivity 3.75 mg/L (See Note)
[2025-04-28 15:11] LABS: Albumin 56.9 % (55.8-66.1); Albumin g/dL 3.8 g/dL (3.6-5.2); Alpha 1 g/dL 0.30 g/dL (0.15-0.40); Alpha 2 g/dL 1.10 g/dL (0.50-1.00); Beta g/dL 0.80 g/dL (0.60-1.20); Gamma g/dL 0.70 g/dL (0.60-1.60)
== END 2025-04-28 20:02 | disposition home or self-care (01) ==
LOC: NCHCN 20:01
PROVIDERS: PCP Family Medicine; Visit Provider Family Medicine
DX: A49.02 Methicillin resistant Staphylococcus aureus infection, unspecified site (principal); G62.9 Polyneuropathy, unspecified
CPT/HCPCS: 80053; 86141; 83735; 84165; 85025; 86320

== ENCOUNTER 2025-05-05 03:05 | Outpatient (CLI) | payer MEDICARE, BC, SELFPAY ==
--- NOTE | 2025-05-05 12:26 | DI.RAD_ITS ---
Exam(s) XR CHEST 2V PA LATERAL EXAM: XR CHEST 2V PA LATERAL CLINICAL HISTORY: PLEURAL EFFUSION LEFT J90. TECHNIQUE: 2D digital imaging was performed. COMPARISON: CR XR PORTABLE CHEST AP from 04/22/[address] THORACIC SPINE RECONS from 04/22/2025 FINDINGS: 2 views: Heart size is normal. Heavily calcified mitral valve annulus again noted. The mediastinum is not widened. Right lung is clear. There is blunting of left costophrenic angle indicating small left pleural effusion. This was evident on spine CT scan of 04/22/2025. No evidence of pulmonary edema Suggestive of healing fracture site left 6th or 7th rib noted. No pneumothorax. IMPRESSION: Small left pleural effusion. DATA REPOSITORY: RADIATION DOSE DELIVERED:
== END 2025-05-05 03:25 ==
LOC: DI 03:05
PROVIDERS: PCP Family Medicine; Visit Provider Family Medicine
DX: M89.8X8 Other specified disorders of bone, other site (principal); J90 Pleural effusion, not elsewhere classified
CPT/HCPCS: 71046

== ENCOUNTER 2025-05-10 14:58 | Outpatient (REF) | payer MEDICARE, BC, SELFPAY ==
[2025-05-10 16:37] LABS: Abs Immature Grans 0.03 10^3/uL (0.0-0.06); HCT 35.0 % (36.0-46.0); HGB 10.9 g/dL (11.2-15.7); Immature Grans % 0.5 %; MCH 27.3 pg (27.0-33.0); MCHC 31.1 % (32.0-36.0); MCV 88 fL (80-95); MPV 12.0 fL (8.0-11.0); Platelet Count 313 10^3/uL (130-400); RBC 4.00 10^6/uL (3.93-5.22); RDW 16.0 % (11.7-14.6); RDW-SD 51.3 fL; WBC 6.26 10^3/uL (4.4-10.8)
[2025-05-10 16:50] LABS: Anion Gap 8.2 mmol/L (3-11); BUN 26 mg/dL (7-18); CO2 30.8 mmol/L (21.0-32.0); Calcium 9.5 mg/dL (8.5-10.1); Chloride 105 mmol/L (98-107); Estimated GFR 44.79 (mL/min/1.73m2); Glucose 218 mg/dL (74-106); Magnesium 2.0 mg/dL (1.8-2.4); Potassium 4.2 mmol/L (3.5-5.1); Sodium 144 mmol/L (136-145)
== END 2025-05-10 14:59 | disposition home or self-care (01) ==
LOC: NCHCN 14:58
PROVIDERS: PCP Family Medicine; Visit Provider Family Medicine
DX: E83.42 Hypomagnesemia (principal); E87.6 Hypokalemia; T84.50XS Infection and inflammatory reaction due to unspecified internal joint prosthesis, sequela
CPT/HCPCS: 80048; 83735; 85025

== ENCOUNTER 2025-06-01 02:08 | Outpatient (CLI) | payer MEDICARE, BC, SELFPAY ==
[2025-06-01] MEDS: Omnipaque 350 MG/ML 100 ML BTL IJ (11:43)
[2025-06-01] MEDS: Normal Saline - Diluent 50 ML VIAL IJ (11:44)
[2025-06-01] MEDS: Normal Saline Flush 10 ML SYR IVP (11:44)
--- NOTE | 2025-06-01 11:56 | DI.CT_ITS ---
Exam(s) CT CHEST W EXAM: CT CHEST W CLINICAL HISTORY: DISORDER OF BONE M89.8X8 EVAL SCLEROTIC LESIONS OF RIBS PLEURAL EFFUSION. TECHNIQUE: Multi planar reconstructions were performed. CONTRAST MATERIAL: Omnipaque 350; 70 cc COMPARISON: CT CT CHEST WO from 04/22/2025 FINDINGS: CHEST: LUNGS: No evidence of lung contusion. There is a moderate size pleural effusion on the left side which has slightly further increased in size from 04/22/2025. No right-sided pleural effusion. There is small focal area of ground-glass infiltrate and nodular density in the right upper lobe (series 8/image 36) the ground-glass infiltrate has slightly decreased in size from previous. The small nodular density in the right upper lobe is unchanged in size. It measures 4 mm. MEDIASTINUM: No evidence of sternal fracture or mediastinal hematoma. No hilar adenopathy. No anterior mediastinal adenopathy. There is a nodule in the right thyroid lobe which measures 1.5 cm. CARDIAC: Mild cardiomegaly. No pericardial effusion.Caliber of the thoracic aorta is within normal limits. No evidence of dissection. VISUALIZED UPPER ABDOMEN:No ascites. No adrenal masses. There are no significant adrenal masses. OSSEOUS: No significant right rib findings.On the left side there is further healing of an anterior lateral left 4th rib fracture. Some sclerotic density again noted in the subjacent left 5th rib, possibly healed fracture site given its adjacent location. There is slight increased density in the anterior left 6 rib. There is a healing fracture site in the left 7th rib again noted. The most medial aspect of the left 10th rib has appearance of a healing fracture site. Left 11th rib unremarkable and there is no acute fracture in the 12th rib.. IMPRESSION: 1. Stable left-sided rib findings as described above, exhibiting minimal if any significant change compared to 04/22/2025. There are no new additional rib fractures. 2. The size of the left pleural effusion has slightly further increased. There is no pleural effusion on the right side. There is no pneumothorax. 3. Ground-glass infiltrate in the right upper lobe has significantly decreased. Small nodular density in the right upper lobe measuring 4 mm is unchanged. 4. Incidentally noted is a 1.5 cm nodule in the right thyroid lobe. This can be further studied with ultrasound. RADIATION DOSE DELIVERED: 149.97mGy.cm Total DLP DATA REPOSITORY: All CT scans at this facility are submitted to the National Radiology Data Registry (NRDR) Dose Index Registry (DIR) with the [employer] (ACR). RADIATION OPTIMIZATION: All CT scans at this facility use at least one of these dose optimization techniques: automated exposure control; mA and/or kV adjustment per patient size (includes targeted exams where dose is matched to clinical indication); or iterative reconstruction.
== END 2025-06-01 02:28 ==
PROVIDERS: PCP Family Medicine; Visit Provider Family Medicine
DX: R91.8 Other nonspecific abnormal finding of lung field (principal); M89.8X8 Other specified disorders of bone, other site
CPT/HCPCS: 71260; J3490

== ENCOUNTER 2025-07-18 03:25 | Outpatient (RCR) | payer MEDICARE, BC, SELFPAY ==
[2025-07-11] MEDS: Normal Saline Flush 10 ML SYR IVP (13:29)
[2025-07-11 13:42] LABS: Abs Immature Grans 0.02 10^3/uL (0.0-0.06); HCT 31.5 % (36.0-46.0); HGB 10.0 g/dL (11.2-15.7); Immature Grans % 0.3 %; MCH 27.9 pg (27.0-33.0); MCHC 31.7 % (32.0-36.0); MCV 88 fL (80-95); MPV 9.7 fL (8.0-11.0); Platelet Count 417 10^3/uL (130-400); RBC 3.59 10^6/uL (3.93-5.22); RDW 16.3 % (11.7-14.6); RDW-SD 52.3 fL; WBC 6.81 10^3/uL (4.4-10.8)
[2025-07-11] MEDS: DAPTOmycin 500 MG in Normal Saline 50 ML 100 MG IVPB (13:50)
[2025-07-11 13:54] LABS: C-Reactive Protein 2.79 mg/dL (<=0.50)
[2025-07-11 13:57] LABS: ALT 10 U/L (10-49); AST 22 U/L (<34); Albumin 3.5 g/dL (3.4-5.0); Alkaline Phosphatase 178 U/L (46-116); Anion Gap 11.1 mmol/L (3-11); BUN 13 mg/dL (9-23); Bilirubin, Total 1.10 mg/dL (0.2-1.2); CO2 22.9 mmol/L (20.0-31.0); Calcium 9.3 mg/dL (8.3-10.6); Chloride 107 mmol/L (98-107); Glucose 126 mg/dL (74-106); Potassium 3.8 mmol/L (3.5-5.1); Sodium 141 mmol/L (136-145); Total Protein 6.2 g/dL (5.7-8.2)
[2025-07-11 13:58] LABS: Creatine Kinase 38 U/L (34-145)
[2025-07-12] MEDS: DAPTOmycin 500 MG in Normal Saline 50 ML 100 MG IVPB (13:30)
[2025-07-12] MEDS: Normal Saline Flush 10 ML SYR IVP (13:30)
[2025-07-13] MEDS: DAPTOmycin 500 MG in Normal Saline 50 ML 100 MG IVPB (13:20)
[2025-07-13] MEDS: Normal Saline Flush 10 ML SYR IVP (13:20)
[2025-07-14] MEDS: Normal Saline Flush 10 ML SYR IVP (13:00)
[2025-07-14] MEDS: DAPTOmycin 500 MG in Normal Saline 50 ML 100 MG IVPB (13:00)
[2025-07-15] MEDS: DAPTOmycin 500 MG in Normal Saline 50 ML 100 MG IVPB (13:03)
[2025-07-15] MEDS: Normal Saline Flush 10 ML SYR IVP (13:03)
[2025-07-16] MEDS: DAPTOmycin 500 MG in Normal Saline 50 ML 100 MG IVPB (13:11)
[2025-07-17] MEDS: DAPTOmycin 500 MG in Normal Saline 50 ML 100 MG IVPB (13:03)
[2025-07-17] MEDS: Normal Saline Flush 5 ML SYR IVP (13:55)
== END 2025-07-24 23:59 | disposition home or self-care (01) ==
LOC: INF 03:25
PROVIDERS: PCP Family Medicine; Visit Provider Family Medicine
DX: T84.54XA Infection and inflammatory reaction due to internal left knee prosthesis, initial encounter (principal)
CPT/HCPCS: 36592; 80053; 82550; 96365; 85025; 86140; J0878

== ENCOUNTER 2025-07-24 10:21 | Observation (INO) | payer MEDICARE, BC, SELFPAY ==
[2025-07-24] VITALS (42 sets, daily range): BP systolic 140–225; BP diastolic 64–125; PULSE 78–109; RESP 10–26; TEMP 36–36.7; O2SAT 94–99
--- NOTE | 2025-07-24 10:15 | RT.EKG_ITS ---
APPROVED REPORT Exam: Resting ECG Reason for Exam: [facility] Patient Location: E HR:92 bpm ECG Measurements Heart Rate 92 AXIS VT 171 P 28 QRSd 128 QRS -38 QT 416 T 95 QTc 515 Conclusion Sinus rhythm...normal P axis, V-rate 60- 99 Atrial premature complex...SV complex w/ short R-R interval Right bundle branch block...QRSd>120, terminal axis(90,270) Abnormal T, consider ischemia, lateral leads...T <-0.20mV, I aVL V5 V6 No Occlusion NV
[2025-07-24 11:24] LABS: BE (Venous) -1 mmol/L (-2-3); HCO3 (Venous) 25 mmol/L (23-28); O2 Sat (Venous) 57 %; TCO2 (Venous) 23 mmol/L (24-29); pCO2 (Venous) 50 mmHg (41-51); pO2 (Venous) 35 mmHg
[2025-07-24] MEDS: Prochlorperazine 10 MG/2 ML VIAL 5 MG IVP ×2 (11:24→13:09)
[2025-07-24] MEDS: Normal Saline 1,000 ML 500 ML IV ×2 (11:25→13:51)
[2025-07-24 11:45] LABS: Lipase 20 U/L (<53)
[2025-07-24 11:46] LABS: Magnesium 1.4 mg/dL (1.6-2.6)
[2025-07-24 11:47] LABS: C-Reactive Protein 1.34 mg/dL (<=0.50)
[2025-07-24 11:54] LABS: ALT < 7 U/L (10-49); AST 21 U/L (<34); Albumin 3.8 g/dL (3.2-5.0); Alkaline Phosphatase 139 U/L (46-116); Anion Gap 10.5 mmol/L (3-11); BUN 19 mg/dL (9-23); Bilirubin, Total 0.70 mg/dL (0.2-1.2); CO2 24.5 mmol/L (20.0-31.0); Calcium 10.5 mg/dL (8.3-10.6); Chloride 104 mmol/L (98-107); Glucose 121 mg/dL (74-106); Potassium 3.7 mmol/L (3.5-5.1); Sodium 139 mmol/L (136-145); Total Protein 6.8 g/dL (5.7-8.2); Troponin I 18 ng/L (<35)
[2025-07-24 12:04] LABS: Abs Immature Grans 0.01 10^3/uL (0.0-0.06); HCT 33.9 % (36.0-46.0); HGB 10.7 g/dL (11.2-15.7); Immature Grans % 0.2 %; MCH 27.6 pg (27.0-33.0); MCHC 31.6 % (32.0-36.0); MCV 88 fL (80-95); MPV 10.0 fL (8.0-11.0); Platelet Count 309 10^3/uL (130-400); RBC 3.87 10^6/uL (3.93-5.22); RDW 15.0 % (11.7-14.6); RDW-SD 48.0 fL; WBC 5.81 10^3/uL (4.4-10.8)
[2025-07-24 12:05] LABS: ESR 26 mm/hr (0-30)
[2025-07-24 12:54] LABS: Troponin I 16 ng/L (<35)
[2025-07-24 12:58] LABS: Glucose Negative (Negative)
[2025-07-24] MEDS: MAGNESIUM SULFATE 1 GM/100 ML BAG IV_INF (13:08)
[2025-07-24 13:25] LABS: C & S Indicated? No; RBC Negative HPF (0-2); WBC Negative HPF (0-5)
[2025-07-24] MEDS: Normal Saline 50 ML (13:51)
--- NOTE | 2025-07-24 15:14 | NUR.NOTE ---
Home health Face to face faxed to home health Nursing Note:
[2025-07-24] MEDS: Normal Saline 1,000 ML 1000 ML IV (15:41)
[2025-07-24] MEDS: Normal Saline 500 ML IV (17:06)
[2025-07-24] MEDS: oxyCODONE 10 MG TAB PO (17:52)
--- NOTE | 2025-07-24 19:12 | W.PM.HP.N ---
Date of service: 07/24/25 Time of Service: 19:12 Assessment and Plan Assessment and plan (1) Lactic acid acidosis: Status: Acute Assessment and plan: - Initially 3.4, only down to 3.1 after total of 2 L fluid in the emergency department - May be secondary to combination of nausea and vomiting, possibly of her leflunomide -Will treat symptomatically treat nausea and vomiting and continue IV fluid rehydration -Blood cultures were taken but antibiotics were not given as patient does not have clear source of infection or she have signs of sepsis - Follow-up blood culture results - Follow-up a.m. lactic acid (2) Nausea & vomiting: Status: Acute Assessment and plan: - Presenting symptom, unknown cause at this time - To be secondary to antibiotics though patient has been on these for some time - Will continue to treat symptomatically with Zofran and give IV fluids (3) Immunocompromised state: Status: Acute Assessment and plan: - Secondary to rheumatoid arthritis - Hold home leflunomide as this may be initially because of nausea vomiting and lactic acidosis as noted above - Continue home 4 mg daily methylprednisolone (4) Lymphedema: Status: Acute Assessment and plan: - Continue home lisinopril (5) Type 2 diabetes mellitus: Assessment and plan: - Holding home insulin due to poor p.o. intake - Sliding scale insulin, carb consistent diet History of Present Illness History of Present Illness Chief Complaint: nausea, weakness manage Narrative: 70-year-old female with past medical history of rheumatoid arthritis on DMARDs, hyperlipidemia, hypertension, recent osteomyelitis of the left knee currently on rifampin and doxycycline and recently completed daptomycin who presents to the emergency department with nausea that began the day prior. Patient states that beginning the day prior to arrival she began having nausea and is unable to tolerate any p.o. intake leading her to feel weak. She has also had multiple episodes of nonbilious nonbloody vomiting, but she denies any headache, lightheadedness, dizziness, chest pain, diarrhea. Of note, the patient was at [facility] for her left knee osteo and had been discharged to [facility] for rehab for 2 weeks and has been home for 2 weeks since that time. In Emergency Department the patient was noted to have all vital signs, normal CBC and CMP but she did have elevated lactic of 3.4. She received a total of 2 L normal saline fluid resuscitation her lactic acid only went down to 3.1. Problems that may be her leflunomide could be contributing to her elevated lactic acid in addition to her nausea vomiting and dehydration. CRP and sed rate were checked and level given her recent knee infection. Abdominal exam was benign therefore imaging was not required, the patient did have blood cultures drawn indicated recent infection, and no antibiotics were given in the emergency department. At which time emergency room provider paged hospitalist for admission for patient with weakness, poor p.o. intake and lactic acidosis. Review of Systems All systems reviewed & are unremarkable except as noted in HPI and below PFSH All Active Problems (Updated 07/24/25 @ 19:12 by Jourdan Farrell MD) Lactic acid acidosis (Acute) Immunocompromised state (Acute) Weakness (Acute) Hypomagnesemia (Acute) Nausea & vomiting (Acute) MRSA cellulitis (Acute) Chronic pain disorder (Chronic) Lumbar radiculitis (Acute) Postlaminectomy syndrome of lumbar region (Acute) GERD (gastroesophageal reflux disease) (Chronic) Diffuse spasm of esophagus (Acute) Spondylosis (Acute) Cardiomegaly (Acute) Heart murmur (Acute) Mild intermittent asthma (Acute) Pure hypercholesterolemia (Acute) Lymphedema (Acute) Peripheral venous insufficiency (Acute) Spasm of back muscles (Acute) Actinic keratosis (Acute) Aortic valve stenosis, nonrheumatic (Acute) Acute bronchitis (Acute) Fatigue (Acute) Nausea (Acute) Chronic cough (Acute) Snoring (Acute) Dyspnea on exertion (Acute) Daytime somnolence (Acute) Exacerbation of intermittent asthma (Acute) Otitis externa (Acute) Insomnia (Acute) Candidiasis of mouth (Acute) Influenza A (Acute) Diabetes mellitus (Chronic) Psoriatic arthritis (Acute) Renal insufficiency (Chronic) Polypharmacy (Acute) Bacteremia (Acute) Pneumonia (Acute) COVID (Acute) Cellulitis and abscess of foot (Acute) Contusion of right foot (Acute) Sepsis (Acute) Bone infection of left foot (Acute) Status post total left knee replacement (Acute) Pain (Acute) Lower extremity pain (Acute) Medical History Effusion of knee Vertigo Urinary disorder Skin disorder Syncope Musculoskeletal disease Motion sickness Liver disease Irregular heart beat Infection Genital disease, female Eye problem ENT disease Elevated cholesterol Digestive problems Complication of anesthesia Circulatory disease Cancer Breathing problem Basal cell carcinoma Chest pain Postoperative anemia due to acute blood loss Hyperlipidemia Hepatosplenomegaly Gait abnormality DVT (deep venous thrombosis) Complex regional pain syndrome type 2 of lower extremity Spinal stenosis Age related osteoporosis Abnormal liver function Failed total knee arthroplasty Fecal impaction Crushing injury of unspecified knee, sequela Chronic prescription opiate use History of falling Obesity Rupture of left quadriceps tendon Fracture of metatarsal of left foot, closed Pain in right ankle and joints of right foot Psoriasis Prepatellar bursitis Quadriceps tendon rupture History of basal cell carcinoma Loose orthopedic implant MOELLER (nonalcoholic steatohepatitis) Type 2 diabetes mellitus Asthma Arthritis Elevated troponin Severe sepsis Acute UTI Chronic pain Edema, peripheral Bacteremia due to group B Streptococcus Surgical History History of endoscopy History of laparotomy Hx of colonoscopy Status post left knee replacement Artificial knee joint present History of arthroplasty of left knee History of total knee arthroplasty History of lumbar surgery S/P revision of total knee Hx of hysterectomy Hx of spinal surgery Hx of laminectomy History of left knee replacement s/p revision for infected prosthesis Family History Brother Cancer family hx of cancer Sister Cancer Diabetes High cholesterol Hypertension Father Stroke Diabetes Coronary artery disease Heart disease High cholesterol Hypertension Thrombophilia Mother Mental disorder Osteoporosis Maternal Grandmother Breast cancer Cancer Sister High cholesterol Hypertension Diabetes Social History Smoking/Tobacco Use Status: Never Smoking risk assessment performed?: Yes Alcohol Intake: current Alcohol Intake frequency: holidays/special occasions only Drug use: Never Substance use type: marijuana Details: occasionally will do a THC edible Housing: house Do you feel safe at home: Yes Do you feel safe in your relationship?: Yes Additional Social history: Lives with in [place]. 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 Meds Allergies and Home Medications Allergies Allergy/AdvReac Type Severity Reaction Status Date / Time capsaicin Allergy Severe Anaphylaxsi Unverified 07/24/25 10:35 s clarithromycin (From Biaxin) Allergy Intermediate Skin Rash Unverified 07/24/25 10:35 Penicillins Allergy Intermediate Skin Rash Unverified 07/24/25 10:35 Sulfa (Sulfonamide Allergy Intermediate Skin Rash Unverified 07/24/25 10:35 Antibiotics) nickel Allergy Mild Itching Unverified 07/24/25 10:35 acitretin Allergy Unknown Swelling/Ed Unverified 07/24/25 10:35 tc amoxicillin Allergy Unknown Unknown Unverified 07/24/25 10:35 jiang pepper Allergy Unknown Unknown Unverified 07/24/25 10:35 cefazolin Allergy Unknown Unknown Unverified 07/24/25 10:35 gabapentin Allergy Unknown Dizziness/L Unverified 07/24/25 10:35 ighthead infliximab (From Remicade) Allergy Unknown passed out Unverified 07/24/25 10:35 isoniazid Allergy Unknown Unknown Unverified 07/24/25 10:35 oxycodone Allergy Unknown Other (See Unverified 07/24/25 10:35 Comment) tramadol Allergy Unknown Other (See Unverified 07/24/25 10:35 Comment) Home Medications ?Medication ?Instructions ?Recorded ?Confirmed ?Type esomeprazole magnesium 40 mg 40 mg PO DAILY 01/11/14 07/24/25 History capsule,delayed release (Nexium) leflunomide 20 mg tablet (Arava) 20 mg PO DAILY 01/11/14 07/24/25 History methylprednisolone 4 mg tablet 4 mg PO DAILY 01/11/14 07/24/25 History zolpidem 10 mg tablet 10 mg PO HS 01/11/14 07/24/25 History aspirin 81 mg chewable tablet 81 mg PO DAILY 04/09/19 07/24/25 History insulin lispro 100 unit/mL See Rx Instructions .Route .COMPLEX 04/09/19 07/24/25 History subcutaneous pen (Humalog KwikPen (U-100) Insulin) multivitamin with minerals-iron 1 mg PO DAILY 04/09/19 07/24/25 History fumarate 9 mg iron/15 mL oral liquid (Multi Vitamin) ondansetron HCl 4 mg tablet 4 mg PO Q8H PRN PRN 05/10/22 07/24/25 History albuterol sulfate 90 mcg/actuation 2 puff inhalation Q4H PRN PRN #8.5 05/13/22 07/24/25 Rx aerosol inhaler (Ventolin HFA) grams indapamide 2.5 mg tablet 2.5 mg PO DAILY 08/27/23 07/24/25 History insulin glargine 100 unit/mL (3 24 unit subcut QAM 08/27/23 07/24/25 History mL) subcutaneous pen (Lantus Solostar U-100 Insulin) lisinopril 10 mg tablet 40 mg PO DAILY 09/30/23 07/24/25 History montelukast 10 mg tablet 10 mg PO DAILY 09/30/23 07/24/25 History (Singulair) calcium citrate 200 mg PO BID 10/01/23 07/24/25 History folic acid 800 mcg tablet 0.8 mg PO DAILY 10/01/23 07/24/25 History acetaminophen 650 mg See Rx Instructions PO TID PRN 12/11/23 07/24/25 History tablet,extended release (Tylenol Arthritis Pain) cholecalciferol (vitamin D3) 50 50 mcg PO DAILY 12/11/23 07/24/25 History mcg (2,000 unit) capsule duloxetine 60 mg capsule,delayed 60 mg PO DAILY 12/11/23 07/24/25 History release elderberry fruit See Rx Instructions PO DIRECTED 12/11/23 07/24/25 History metoprolol tartrate 100 mg tablet 100 mg PO DAILY 12/11/23 07/24/25 History nystatin 100,000 unit/mL oral See Rx Instructions PO DIRECTED 12/11/23 07/24/25 History suspension fluconazole 100 mg tablet 100 mg PO DAILY PRN 03/16/24 07/24/25 History ipratropium 0.5 mg-albuterol 3 mg 3 ml inhalation Q4H PRN 03/16/24 07/24/25 History (2.5 mg base)/3 mL nebulization soln tizanidine 2 mg tablet 2 mg PO Q8H PRN 03/16/24 07/24/25 History duloxetine 30 mg capsule,delayed 30 mg PO DAILY #7 caps 02/14/25 07/24/25 Rx release oxycodone 5 mg tablet 5 mg PO PRN 03/29/25 07/24/25 History prochlorperazine maleate 10 mg 10 mg PO TID 03/29/25 07/24/25 History tablet atorvastatin 20 mg tablet 10 mg PO DAILY 04/22/25 07/24/25 History diclofenac sodium 1 % gel topical 2 g topical BID PRN 04/22/25 07/24/25 History kit diphenhydramine HCl 25 mg capsule 25 mg PO Q8H PRN 04/22/25 07/24/25 History (Allergy (diphenhydramine)) gabapentin 300 mg capsule 300 mg PO TID #90 caps 04/22/25 07/24/25 Rx (Neurontin) ketoconazole 2 % topical cream 1 applic topical ONCE 04/22/25 07/24/25 History lancets 33 gauge (OneTouch Delica 04/22/25 07/24/25 History Plus Lancet) magnesium oxide 400 mg (241.3 mg 400 mg PO DAILY 04/22/25 07/24/25 History magnesium) tablet potassium chloride 20 mEq 20 meq PO DAILY 04/22/25 07/24/25 History tablet,extended release(part/cryst) (Klor-Con M) magnesium oxide 420 mg tablet 420 mg PO DAILY #10 tabs 07/24/25 Rx prochlorperazine maleate 5 mg 5 - 10 mg (1 - 2 x 5 mg) PO TID 07/24/25 Rx tablet (Compazine) PRN #20 tabs Exam Narrative Exam Narrative: Well-appearing older female laying in bed in no acute distress, ANO x 4, heart regular rhythm, lungs good auscultation bilaterally, abdomen soft, nontender, nondistended Results Labs 07/24/25 11:55 07/24/25 11:11 Labs: Laboratory Results - last 24 hr 07/24/25 07/24/25 07/24/25 10:29 11:11 11:11 WBC RBC Hgb Hct MCV MCH MCHC RDW Plt Count MPV Immature Gran % Neutrophils % Lymphocytes % Monocytes % Eosinophils % Basophils % Nucleated RBC % Absolute Neutrophils Absolute Lymphocytes Absolute Monocytes Absolute Eosinophils Absolute Basophils ESR VBG pH 7.31 VBG pCO2 50 VBG pO2 35 VBG HCO3 25 VBG Total CO2 23 L VBG O2 Saturation 57 VBG Base Excess -1 VBG Lactate 3.8 H* Cancelled Sodium 139 Potassium 3.7 Chloride 104 Carbon Dioxide 24.5 Anion Gap 10.5 BUN 19 Creatinine 0.81 Est GFR (CKD-EPI 2020) 70.09 Glucose 121 H Calcium 10.5 Magnesium 1.4 L Total Bilirubin 0.70 AST 21 ALT < 7 L Alkaline Phosphatase 139 H Troponin I 18 C-Reactive Protein 1.34 H Total Protein Albumin Lipase Urine Color Urine Clarity Urine pH Ur Specific [place] Urine Protein Urine Ketones Urine Blood Urine Nitrite Urine Bilirubin Urine Urobilinogen Ur Leukocyte Esterase Urine RBC Urine WBC Ur Epithelial Cells Urine Crystals Urine Bacteria Urine Casts Urine Mucus Ur Culture Indicated? Urine Glucose COVID-19 Source Cancelled SARS-CoV-2 (PCR) Cancelled Influenza Type A (PCR) Cancelled Influenza Type B (PCR) Cancelled RSV (PCR) Cancelled 07/24/25 07/24/25 07/24/25 11:11 11:55 12:20 WBC 5.81 RBC 3.87 L Hgb 10.7 L Hct 33.9 L MCV 88 MCH 27.6 MCHC 31.6 L RDW 15.0 H Plt Count 309 MPV 10.0 Immature Gran % 0.2 Neutrophils % 37.4 Lymphocytes % 42.3 Monocytes % 11.5 Eosinophils % 6.5 Basophils % 2.1 Nucleated RBC % 0.0 Absolute Neutrophils 2.17 Absolute Lymphocytes 2.46 Absolute Monocytes 0.67 Absolute Eosinophils 0.38 Absolute Basophils 0.12 ESR 26 VBG pH VBG pCO2 VBG pO2 VBG HCO3 VBG Total CO2 VBG O2 Saturation VBG Base Excess VBG Lactate Sodium Potassium Chloride Carbon Dioxide Anion Gap BUN Creatinine Est GFR (CKD-EPI 2020) Glucose Calcium Magnesium Total Bilirubin AST ALT Alkaline Phosphatase Troponin I C-Reactive Protein Cancelled Total Protein 6.8 Albumin 3.8 Lipase 20 Urine Color Yellow Urine Clarity Clear Urine pH 5.5 Ur Specific [place] 1.020 Urine Protein 30 H Urine Ketones Negative Urine Blood Negative Urine Nitrite Negative Urine Bilirubin Negative Urine Urobilinogen 0.2 Ur Leukocyte Esterase Negative Urine RBC Negative Urine WBC Negative Ur Epithelial Cells Rare Urine Crystals Negative Urine Bacteria Negative Urine Casts 0-2 Hyaline Urine Mucus Trace Ur Culture Indicated? No Urine Glucose Negative COVID-19 Source SARS-CoV-2 (PCR) Influenza Type A (PCR) Influenza Type B (PCR) RSV (PCR) 07/24/25 07/24/25 07/24/25 12:25 15:05 16:15 WBC RBC Hgb Hct MCV MCH MCHC RDW Plt Count MPV Immature Gran % Neutrophils % Lymphocytes % Monocytes % Eosinophils % Basophils % Nucleated RBC % Absolute Neutrophils Absolute Lymphocytes Absolute Monocytes Absolute Eosinophils Absolute Basophils ESR VBG pH VBG pCO2 VBG pO2 VBG HCO3 VBG Total CO2 VBG O2 Saturation VBG Base Excess VBG Lactate 3.4 H* 3.4 H* Sodium Potassium Chloride Carbon Dioxide Anion Gap BUN Creatinine Est GFR (CKD-EPI 2020) Glucose Calcium Magnesium Total Bilirubin AST ALT Alkaline Phosphatase Troponin I 16 C-Reactive Protein Total Protein Albumin Lipase Urine Color Urine Clarity Urine pH Ur Specific [place] Urine Protein Urine Ketones Urine Blood Urine Nitrite Urine Bilirubin Urine Urobilinogen Ur Leukocyte Esterase Urine RBC Urine WBC Ur Epithelial Cells Urine Crystals Urine Bacteria Urine Casts Urine Mucus Ur Culture Indicated? Urine Glucose COVID-19 Source SARS-CoV-2 (PCR) Influenza Type A (PCR) Influenza Type B (PCR) RSV (PCR) 07/24/25 18:05 WBC RBC Hgb Hct MCV MCH MCHC RDW Plt Count MPV Immature Gran % Neutrophils % Lymphocytes % Monocytes % Eosinophils % Basophils % Nucleated RBC % Absolute Neutrophils Absolute Lymphocytes Absolute Monocytes Absolute Eosinophils Absolute Basophils ESR VBG pH VBG pCO2 VBG pO2 VBG HCO3 VBG Total CO2 VBG O2 Saturation VBG Base Excess VBG Lactate 3.1 H* Sodium Potassium Chloride Carbon Dioxide Anion Gap BUN Creatinine Est GFR (CKD-EPI 2020) Glucose Calcium Magnesium Total Bilirubin AST ALT Alkaline Phosphatase Troponin I C-Reactive Protein Total Protein Albumin Lipase Urine Color Urine Clarity Urine pH Ur Specific [place] Urine Protein Urine Ketones Urine Blood Urine Nitrite Urine Bilirubin Urine Urobilinogen Ur Leukocyte Esterase Urine RBC Urine WBC Ur Epithelial Cells Urine Crystals Urine Bacteria Urine Casts Urine Mucus Ur Culture Indicated? Urine Glucose COVID-19 Source SARS-CoV-2 (PCR) Influenza Type A (PCR) Influenza Type B (PCR) RSV (PCR) Last Vital Signs Temp 98.1 F 07/24/25 11:19 Pulse 94 H 07/24/25 18:06 Resp 16 07/24/25 18:06 BP 174/92 H 07/24/25 18:06 Pulse Ox 98 07/24/25 18:06 VTE Prohylaxis Risk Level: Moderate/High Risk Contraindications: None Prophylaxis: Pharmacologic Time Spent Time spent with Patient: <40 minutes Time was spent: preparing to see the patient(eg.review tests), obtaining and/or reviewing separately otained hiistory, ordering medications,tests, procedures, referring, communicating with other health point of care specialist, indepentently interpreting results, counseling the patient and care coordination
--- NOTE | 2025-07-24 19:43 | W.ED.GENAD ---
Discharge Plan Disposition Patient Disposition: Admit to [facility] Condition: Serious Discharge Details Clinical Impression: Nausea & vomiting, Hypomagnesemia, Weakness, Immunocompromised state Primary Care Provider: Melissa Garcia ED Provider: Matilda Thornton Home Meds and New Rx's Prescriptions: New prochlorperazine maleate [Compazine] 5 mg tablet 5 - 10 mg PO TID PRNQty: 20 0RF magnesium oxide 420 mg tablet 420 mg PO DAILY Qty: 10 0RF Continued ipratropium-albuterol 0.5 mg-3 mg(2.5 mg base)/3 mL solution for nebulization 3 ml inhalation Q4H PRN tizanidine 2 mg tablet 2 mg PO Q8H PRN fluconazole 100 mg tablet 100 mg PO DAILY PRN cholecalciferol (vitamin D3) 50 mcg (2,000 unit) capsule 50 mcg PO DAILY duloxetine 60 mg capsule,delayed release(DR/EC) 60 mg PO DAILY elderberry fruit See Rx Instructions PO DIRECTED Rx Instructions: orally as directed; metoprolol tartrate 100 mg tablet 100 mg PO DAILY nystatin 100,000 unit/mL suspension See Rx Instructions PO DIRECTED Rx Instructions: orally as directed; swish and swallow acetaminophen [Tylenol Arthritis Pain] 650 mg tablet extended release See Rx Instructions PO TID PRN Rx Instructions: orally three times a day PRN; methylprednisolone 4 MG tablet 4 mg PO DAILY leflunomide [Arava] 20 MG tablet 20 mg PO DAILY esomeprazole magnesium [Nexium] 40 MG capsule,delayed release(DR/EC) 40 mg PO DAILY zolpidem 10 MG tablet 10 mg PO HS ondansetron HCl 4 mg tablet 4 mg PO Q8H PRN PRN albuterol sulfate [Ventolin HFA] 90 mcg/actuation Hfa Aerosol Inhaler 2 puff inhalation Q4H PRN PRNQty: 8.5 0RF montelukast [Singulair] 10 mg tablet 10 mg PO DAILY lisinopril 10 mg tablet 40 mg PO DAILY calcium citrate 200 mg (950 mg) tablet 200 mg PO BID Patient Comments: TAKE ONE TABLET BY MOUTH ONCE DAILY folic acid 800 mcg tablet 0.8 mg PO DAILY Patient Comments: TAKE ONE TABLET BY MOUTH EVERY DAY IN THE MORNING. duloxetine 30 mg Capsule,Delayed Release(Dr/Ec) 30 mg PO DAILY Qty: 7 0RF aspirin 81 mg Tablet,Chewable 81 mg PO DAILY Multi Vitamin 9 mg iron/15 mL Liquid 1 mg PO DAILY insulin lispro [Humalog KwikPen Insulin] 100 unit/mL Insulin Pen See Rx Instructions .ROUTE .COMPLEX Patient Comments: 3 units for small meal 5 units for medium meal 7-8 units for large meal Do Not exceed 24 units a day Rx Instructions: Original sig- 10 units+SS sc tid with meals. Pt often skips breakfast and lunch dosing due to BG in range, normally injects 14 units sc with evening meal insulin glargine [Lantus Solostar U-100 Insulin] 100 unit/mL (3 mL) insulin pen 24 unit SUBCUT QAM indapamide 2.5 mg tablet 2.5 mg PO DAILY Patient Comments: TAKE ONE TABLET BY MOUTH ONCE DAILY oxycodone 5 mg tablet 5 mg PO PRN Patient Comments: TAKE 1 TO 2 TABLETS BY MOUTH AT BEDTIME NEEDED FOR PAIN prochlorperazine maleate 10 mg tablet 10 mg PO TID Patient Comments: TAKE 1 TABLET BY MOUTH THREE TIMES DAILY FOR 10 DAYS atorvastatin 20 mg tablet 10 mg PO DAILY Patient Comments: TAKE 1 TABLET BY MOUTH EVERY NIGHT AT BEDTIME (DME) lancets [OneTouch Delica Plus Lancet] 33 gauge misc MISCELLANEOUS Patient Comments: USE 1 LANCET TO CHECK GLUCOSE TWICE DAILY diphenhydramine HCl [Allergy (diphenhydramine)] 25 mg capsule 25 mg PO Q8H PRN diclofenac sodium 1 % kit 2 g topical BID PRN Rx Instructions: apply to single elbow, wrist or hand; for hand includes palm/fingers/back of hand ketoconazole 2 % cream 1 applic topical ONCE magnesium oxide 400 mg (241.3 mg magnesium) tablet 400 mg PO DAILY Patient Comments: TAKE 1 TABLET BY MOUTH ONCE DAILY potassium chloride [Klor-Con M20] 20 mEq tablet,ER particles/crystals 20 meq PO DAILY gabapentin [Neurontin] 300 mg capsule 300 mg PO TID Qty: 90 0RF Rx Instructions: On the first day take 1 pill, on the second day take 1 pill twice daily, on the third day and for the remainder of the prescription take 1 pill 3 times a day. HPI General Date/Time Provider Initiated Documentation: 07/24/25 10:25. HPI Narrative: This 70-year-old complex female with history of rheumatoid arthritis on DMARDs, hyperlipidemia, hypertension, recent osteo myelitis to left knee on current antibiotic regimen of rifampin and doxycycline orally, presents with report of nausea and started yesterday she has been unable to tolerate any p.o. and she feels very weak. She denies any chest pain or shortness of breath she denies any actual pain complaints and states her knee is not bothering her today. She was discharged from [facility] approximately a month ago and was at [facility] for rehab for 2 weeks thereafter and has been home for approximately 2 weeks. She states she has been fairly weak since she was discharged. She denies any chest pain or shortness of breath. She denies any blood in vomitus. She has vomited numerous times. Denies any known sick contacts or spoiled food exposure. Related Data Home Medications ?Medication ?Instructions ?Recorded ?Confirmed esomeprazole magnesium 40 mg 40 mg PO DAILY 01/11/14 07/24/25 capsule,delayed release (Nexium) leflunomide 20 mg tablet (Arava) 20 mg PO DAILY 01/11/14 07/24/25 methylprednisolone 4 mg tablet 4 mg PO DAILY 01/11/14 07/24/25 zolpidem 10 mg tablet 10 mg PO HS 01/11/14 07/24/25 aspirin 81 mg chewable tablet 81 mg PO DAILY 04/09/19 07/24/25 insulin lispro 100 unit/mL See Rx Instructions .Route .COMPLEX 04/09/19 07/24/25 subcutaneous pen (Humalog KwikPen (U-100) Insulin) multivitamin with minerals-iron 1 mg PO DAILY 04/09/19 07/24/25 fumarate 9 mg iron/15 mL oral liquid (Multi Vitamin) ondansetron HCl 4 mg tablet 4 mg PO Q8H PRN PRN 05/10/22 07/24/25 albuterol sulfate 90 mcg/actuation 2 puff inhalation Q4H PRN PRN #8.5 05/13/22 07/24/25 aerosol inhaler (Ventolin HFA) grams indapamide 2.5 mg tablet 2.5 mg PO DAILY 08/27/23 07/24/25 insulin glargine 100 unit/mL (3 24 unit subcut QAM 08/27/23 07/24/25 mL) subcutaneous pen (Lantus Solostar U-100 Insulin) lisinopril 10 mg tablet 40 mg PO DAILY 09/30/23 07/24/25 montelukast 10 mg tablet 10 mg PO DAILY 09/30/23 07/24/25 (Singulair) calcium citrate 200 mg PO BID 10/01/23 07/24/25 folic acid 800 mcg tablet 0.8 mg PO DAILY 10/01/23 07/24/25 acetaminophen 650 mg See Rx Instructions PO TID PRN 12/11/23 07/24/25 tablet,extended release (Tylenol Arthritis Pain) cholecalciferol (vitamin D3) 50 50 mcg PO DAILY 12/11/23 07/24/25 mcg (2,000 unit) capsule duloxetine 60 mg capsule,delayed 60 mg PO DAILY 12/11/23 07/24/25 release elderberry fruit See Rx Instructions PO DIRECTED 12/11/23 07/24/25 metoprolol tartrate 100 mg tablet 100 mg PO DAILY 12/11/23 07/24/25 nystatin 100,000 unit/mL oral See Rx Instructions PO DIRECTED 12/11/23 07/24/25 suspension fluconazole 100 mg tablet 100 mg PO DAILY PRN 03/16/24 07/24/25 ipratropium 0.5 mg-albuterol 3 mg 3 ml inhalation Q4H PRN 03/16/24 07/24/25 (2.5 mg base)/3 mL nebulization soln tizanidine 2 mg tablet 2 mg PO Q8H PRN 03/16/24 07/24/25 duloxetine 30 mg capsule,delayed 30 mg PO DAILY #7 caps 02/14/25 07/24/25 release oxycodone 5 mg tablet 5 mg PO PRN 03/29/25 07/24/25 prochlorperazine maleate 10 mg 10 mg PO TID 03/29/25 07/24/25 tablet atorvastatin 20 mg tablet 10 mg PO DAILY 04/22/25 07/24/25 diclofenac sodium 1 % gel topical 2 g topical BID PRN 04/22/25 07/24/25 kit diphenhydramine HCl 25 mg capsule 25 mg PO Q8H PRN 04/22/25 07/24/25 (Allergy (diphenhydramine)) gabapentin 300 mg capsule 300 mg PO TID #90 caps 04/22/25 07/24/25 (Neurontin) ketoconazole 2 % topical cream 1 applic topical ONCE 04/22/25 07/24/25 lancets 33 gauge (OneTouch Delica 04/22/25 07/24/25 Plus Lancet) magnesium oxide 400 mg (241.3 mg 400 mg PO DAILY 04/22/25 07/24/25 magnesium) tablet potassium chloride 20 mEq 20 meq PO DAILY 04/22/25 07/24/25 tablet,extended release(part/cryst) (Klor-Con M) magnesium oxide 420 mg tablet 420 mg PO DAILY #10 tabs 07/24/25 prochlorperazine maleate 5 mg 5 - 10 mg (1 - 2 x 5 mg) PO TID 07/24/25 tablet (Compazine) PRN #20 tabs Previous Rx's ?Medication ?Instructions ?Recorded albuterol sulfate 90 mcg/actuation 2 puff inhalation Q4H PRN PRN #8.5 05/13/22 aerosol inhaler (Ventolin HFA) grams duloxetine 30 mg capsule,delayed 30 mg PO DAILY #7 caps 02/14/25 release gabapentin 300 mg capsule 300 mg PO TID #90 caps 04/22/25 (Neurontin) magnesium oxide 420 mg tablet 420 mg PO DAILY #10 tabs 07/24/25 prochlorperazine maleate 5 mg 5 - 10 mg (1 - 2 x 5 mg) PO TID 07/24/25 tablet (Compazine) PRN #20 tabs Allergies Allergy/AdvReac Type Severity Reaction Status Date / Time capsaicin Allergy Severe Anaphylaxsi Unverified 07/24/25 10:35 s clarithromycin (From Biaxin) Allergy Intermediate Skin Rash Unverified 07/24/25 10:35 Penicillins Allergy Intermediate Skin Rash Unverified 07/24/25 10:35 Sulfa (Sulfonamide Allergy Intermediate Skin Rash Unverified 07/24/25 10:35 Antibiotics) nickel Allergy Mild Itching Unverified 07/24/25 10:35 acitretin Allergy Unknown Swelling/Ed Unverified 07/24/25 10:35 tc amoxicillin Allergy Unknown Unknown Unverified 07/24/25 10:35 jiang pepper Allergy Unknown Unknown Unverified 07/24/25 10:35 cefazolin Allergy Unknown Unknown Unverified 07/24/25 10:35 gabapentin Allergy Unknown Dizziness/L Unverified 07/24/25 10:35 ighthead infliximab (From Remicade) Allergy Unknown passed out Unverified 07/24/25 10:35 isoniazid Allergy Unknown Unknown Unverified 07/24/25 10:35 oxycodone Allergy Unknown Other (See Unverified 07/24/25 10:35 Comment) tramadol Allergy Unknown Other (See Unverified 07/24/25 10:35 Comment) General Stated Complaint: Nausea/Vomit/Diar ARABELLA: 3 Exam Narrative Exam Narrative: Alert and oriented 70-year-old female chronically ill in appearance, no abdominal tenderness lungs clear to auscultation cardiac rate rhythm regular peripheral edema bilateral legs left greater than right although nontender left lower extremity distal pulses are intact answering questions appropriately left knee without visible evidence of infectious process specifically no redness or crepitus moist mucous membranes this is a 71 Course Vital Signs Vital signs: Vital Signs Pulse 96 H 07/24/25 10:31 Respiratory Rate 16 07/24/25 10:31 Blood Pressure 179/87 H 07/24/25 10:31 Pulse Oximetry 97 07/24/25 10:31 Temperature 36.7 C 07/24/25 11:19 Pulse 94 H 07/24/25 18:06 Pulse 96 H 07/24/25 14:50 Respiratory Rate 16 07/24/25 18:06 Blood Pressure 174/92 H 07/24/25 18:06 Blood Pressure Mean 119 07/24/25 18:06 Pulse Oximetry 98 07/24/25 18:06 Oxygen Delivery Method Room Air 07/24/25 10:31 Oxygen Flow Rate 0 07/24/25 10:31 Pain Level 7 07/24/25 17:52 Lab/Test Results Lab/Test Results: 07/24/25 11:11 Blood Blood Culture - Pending Laboratory Tests Range/Units 07/24/25 07/24/25 07/24/25 10:29 11:11 11:11 WBC (4.4-10.8) 10^3/uL RBC (3.93-5.22) 10^6/uL Hgb (11.2-15.7) g/dL Hct (36.0-46.0) % MCV (80-95) fL MCH (27.0-33.0) pg MCHC (32.0-36.0) % RDW (11.7-14.6) % Plt Count (130-400) 10^3/uL MPV (8.0-11.0) fL Immature Gran % % Neutrophils % % Lymphocytes % % Monocytes % % Eosinophils % % Basophils % % Nucleated RBC % (0.0-0.3) % Absolute Neutrophils (1.2-6.7) 10^3/uL Absolute Lymphocytes (1.2-3.4) 10^3/uL Absolute Monocytes (0.1-0.8) 10^3/uL Absolute Eosinophils (0.0-0.7) 10^3/uL Absolute Basophils (0.0-0.2) 10^3/uL ESR (0-30) mm/hr VBG pH (7.31-7.41) 7.31 VBG pCO2 (41-51) mmHg 50 VBG pO2 mmHg 35 VBG HCO3 (23-28) mmol/L 25 VBG Total CO2 (24-29) mmol/L 23 L VBG O2 Saturation % 57 VBG Base Excess (-2-3) mmol/L -1 VBG Lactate (<or=2.0) mmol/L 3.8 H* Cancelled Sodium (136-145) mmol/L 139 Potassium (3.5-5.1) mmol/L 3.7 Chloride (98-107) mmol/L 104 Carbon Dioxide (20.0-31.0) mmol/L 24.5 Anion Gap (3-11) mmol/L 10.5 BUN (9-23) mg/dL 19 Creatinine (0.55-1.02) mg/dL 0.81 Est GFR (CKD-EPI 2020) (mL/min/1.73m2) 70.09 Glucose (74-106) mg/dL 121 H Calcium (8.3-10.6) mg/dL 10.5 Magnesium (1.6-2.6) mg/dL 1.4 L Total Bilirubin (0.2-1.2) mg/dL 0.70 AST (<34) U/L 21 ALT (10-49) U/L < 7 L Alkaline Phosphatase (46-116) U/L 139 H Troponin I (<35) ng/L 18 C-Reactive Protein (<=0.50) mg/dL 1.34 H Total Protein (5.7-8.2) g/dL Albumin (3.2-5.0) g/dL Lipase (<53) U/L Urine Color (Yellow) Urine Clarity (Clear) Urine pH (5-8) Ur Specific Bertha (1.005-1.025) Urine Protein (Neg-Trace) mg/dL Urine Ketones (Negative) mg/dL Urine Blood (Negative) Urine Nitrite (Negative) Urine Bilirubin (Negative) Urine Urobilinogen (Up to 0.2) mg/dL Ur Leukocyte Esterase (Negative) Urine RBC (0-2) HPF Urine WBC (0-5) HPF Ur Epithelial Cells (Negative) HPF Urine Crystals (Negative) HPF Urine Bacteria (Negative) HPF Urine Casts (Negative) LPF Urine Mucus (Negative) Ur Culture Indicated? Urine Glucose (Negative) mg/dL COVID-19 Source Cancelled SARS-CoV-2 (PCR) Cancelled Influenza Type A (PCR) Cancelled Influenza Type B (PCR) Cancelled RSV (PCR) Cancelled Range/Units 07/24/25 07/24/25 07/24/25 11:11 11:55 12:20 WBC (4.4-10.8) 10^3/uL 5.81 RBC (3.93-5.22) 10^6/uL 3.87 L Hgb (11.2-15.7) g/dL 10.7 L Hct (36.0-46.0) % 33.9 L MCV (80-95) fL 88 MCH (27.0-33.0) pg 27.6 MCHC (32.0-36.0) % 31.6 L RDW (11.7-14.6) % 15.0 H Plt Count (130-400) 10^3/uL 309 MPV (8.0-11.0) fL 10.0 Immature Gran % % 0.2 Neutrophils % % 37.4 Lymphocytes % % 42.3 Monocytes % % 11.5 Eosinophils % % 6.5 Basophils % % 2.1 Nucleated RBC % (0.0-0.3) % 0.0 Absolute Neutrophils (1.2-6.7) 10^3/uL 2.17 Absolute Lymphocytes (1.2-3.4) 10^3/uL 2.46 Absolute Monocytes (0.1-0.8) 10^3/uL 0.67 Absolute Eosinophils (0.0-0.7) 10^3/uL 0.38 Absolute Basophils (0.0-0.2) 10^3/uL 0.12 ESR (0-30) mm/hr 26 VBG pH (7.31-7.41) VBG pCO2 (41-51) mmHg VBG pO2 mmHg VBG HCO3 (23-28) mmol/L VBG Total CO2 (24-29) mmol/L VBG O2 Saturation % VBG Base Excess (-2-3) mmol/L VBG Lactate (<or=2.0) mmol/L Sodium (136-145) mmol/L Potassium (3.5-5.1) mmol/L Chloride (98-107) mmol/L Carbon Dioxide (20.0-31.0) mmol/L Anion Gap (3-11) mmol/L BUN (9-23) mg/dL Creatinine (0.55-1.02) mg/dL Est GFR (CKD-EPI 2020) (mL/min/1.73m2) Glucose (74-106) mg/dL Calcium (8.3-10.6) mg/dL Magnesium (1.6-2.6) mg/dL Total Bilirubin (0.2-1.2) mg/dL AST (<34) U/L ALT (10-49) U/L Alkaline Phosphatase (46-116) U/L Troponin I (<35) ng/L C-Reactive Protein (<=0.50) mg/dL Cancelled Total Protein (5.7-8.2) g/dL 6.8 Albumin (3.2-5.0) g/dL 3.8 Lipase (<53) U/L 20 Urine Color (Yellow) Yellow Urine Clarity (Clear) Clear Urine pH (5-8) 5.5 Ur Specific Bertha (1.005-1.025) 1.020 Urine Protein (Neg-Trace) mg/dL 30 H Urine Ketones (Negative) mg/dL Negative Urine Blood (Negative) Negative Urine Nitrite (Negative) Negative Urine Bilirubin (Negative) Negative Urine Urobilinogen (Up to 0.2) mg/dL 0.2 Ur Leukocyte Esterase (Negative) Negative Urine RBC (0-2) HPF Negative Urine WBC (0-5) HPF Negative Ur Epithelial Cells (Negative) HPF Rare Urine Crystals (Negative) HPF Negative Urine Bacteria (Negative) HPF Negative Urine Casts (Negative) LPF 0-2 Hyaline Urine Mucus (Negative) Trace Ur Culture Indicated? No Urine Glucose (Negative) mg/dL Negative COVID-19 Source SARS-CoV-2 (PCR) Influenza Type A (PCR) Influenza Type B (PCR) RSV (PCR) Range/Units 07/24/25 07/24/25 07/24/25 12:25 15:05 16:15 WBC (4.4-10.8) 10^3/uL RBC (3.93-5.22) 10^6/uL Hgb (11.2-15.7) g/dL Hct (36.0-46.0) % MCV (80-95) fL MCH (27.0-33.0) pg MCHC (32.0-36.0) % RDW (11.7-14.6) % Plt Count (130-400) 10^3/uL MPV (8.0-11.0) fL Immature Gran % % Neutrophils % % Lymphocytes % % Monocytes % % Eosinophils % % Basophils % % Nucleated RBC % (0.0-0.3) % Absolute Neutrophils (1.2-6.7) 10^3/uL Absolute Lymphocytes (1.2-3.4) 10^3/uL Absolute Monocytes (0.1-0.8) 10^3/uL Absolute Eosinophils (0.0-0.7) 10^3/uL Absolute Basophils (0.0-0.2) 10^3/uL ESR (0-30) mm/hr VBG pH (7.31-7.41) VBG pCO2 (41-51) mmHg VBG pO2 mmHg VBG HCO3 (23-28) mmol/L VBG Total CO2 (24-29) mmol/L VBG O2 Saturation % VBG Base Excess (-2-3) mmol/L VBG Lactate (<or=2.0) mmol/L 3.4 H* 3.4 H* Sodium (136-145) mmol/L Potassium (3.5-5.1) mmol/L Chloride (98-107) mmol/L Carbon Dioxide (20.0-31.0) mmol/L Anion Gap (3-11) mmol/L BUN (9-23) mg/dL Creatinine (0.55-1.02) mg/dL Est GFR (CKD-EPI 2020) (mL/min/1.73m2) Glucose (74-106) mg/dL Calcium (8.3-10.6) mg/dL Magnesium (1.6-2.6) mg/dL Total Bilirubin (0.2-1.2) mg/dL AST (<34) U/L ALT (10-49) U/L Alkaline Phosphatase (46-116) U/L Troponin I (<35) ng/L 16 C-Reactive Protein (<=0.50) mg/dL Total Protein (5.7-8.2) g/dL Albumin (3.2-5.0) g/dL Lipase (<53) U/L Urine Color (Yellow) Urine Clarity (Clear) Urine pH (5-8) Ur Specific Bertha (1.005-1.025) Urine Protein (Neg-Trace) mg/dL Urine Ketones (Negative) mg/dL Urine Blood (Negative) Urine Nitrite (Negative) Urine Bilirubin (Negative) Urine Urobilinogen (Up to 0.2) mg/dL Ur Leukocyte Esterase (Negative) Urine RBC (0-2) HPF Urine WBC (0-5) HPF Ur Epithelial Cells (Negative) HPF Urine Crystals (Negative) HPF Urine Bacteria (Negative) HPF Urine Casts (Negative) LPF Urine Mucus (Negative) Ur Culture Indicated? Urine Glucose (Negative) mg/dL COVID-19 Source SARS-CoV-2 (PCR) Influenza Type A (PCR) Influenza Type B (PCR) RSV (PCR) Range/Units 07/24/25 18:05 WBC (4.4-10.8) 10^3/uL RBC (3.93-5.22) 10^6/uL Hgb (11.2-15.7) g/dL Hct (36.0-46.0) % MCV (80-95) fL MCH (27.0-33.0) pg MCHC (32.0-36.0) % RDW (11.7-14.6) % Plt Count (130-400) 10^3/uL MPV (8.0-11.0) fL Immature Gran % % Neutrophils % % Lymphocytes % % Monocytes % % Eosinophils % % Basophils % % Nucleated RBC % (0.0-0.3) % Absolute Neutrophils (1.2-6.7) 10^3/uL Absolute Lymphocytes (1.2-3.4) 10^3/uL Absolute Monocytes (0.1-0.8) 10^3/uL Absolute Eosinophils (0.0-0.7) 10^3/uL Absolute Basophils (0.0-0.2) 10^3/uL ESR (0-30) mm/hr VBG pH (7.31-7.41) VBG pCO2 (41-51) mmHg VBG pO2 mmHg VBG HCO3 (23-28) mmol/L VBG Total CO2 (24-29) mmol/L VBG O2 Saturation % VBG Base Excess (-2-3) mmol/L VBG Lactate (<or=2.0) mmol/L 3.1 H* Sodium (136-145) mmol/L Potassium (3.5-5.1) mmol/L Chloride (98-107) mmol/L Carbon Dioxide (20.0-31.0) mmol/L Anion Gap (3-11) mmol/L BUN (9-23) mg/dL Creatinine (0.55-1.02) mg/dL Est GFR (CKD-EPI 2020) (mL/min/1.73m2) Glucose (74-106) mg/dL Calcium (8.3-10.6) mg/dL Magnesium (1.6-2.6) mg/dL Total Bilirubin (0.2-1.2) mg/dL AST (<34) U/L ALT (10-49) U/L Alkaline Phosphatase (46-116) U/L Troponin I (<35) ng/L C-Reactive Protein (<=0.50) mg/dL Total Protein (5.7-8.2) g/dL Albumin (3.2-5.0) g/dL Lipase (<53) U/L Urine Color (Yellow) Urine Clarity (Clear) Urine pH (5-8) Ur Specific Bertha (1.005-1.025) Urine Protein (Neg-Trace) mg/dL Urine Ketones (Negative) mg/dL Urine Blood (Negative) Urine Nitrite (Negative) Urine Bilirubin (Negative) Urine Urobilinogen (Up to 0.2) mg/dL Ur Leukocyte Esterase (Negative) Urine RBC (0-2) HPF Urine WBC (0-5) HPF Ur Epithelial Cells (Negative) HPF Urine Crystals (Negative) HPF Urine Bacteria (Negative) HPF Urine Casts (Negative) LPF Urine Mucus (Negative) Ur Culture Indicated? Urine Glucose (Negative) mg/dL COVID-19 Source SARS-CoV-2 (PCR) Influenza Type A (PCR) Influenza Type B (PCR) RSV (PCR) Medical Decision Making Results: EKG is nonischemic hemoglobin and hematocrit are stable for patient at 10.7 and 33.9, interestingly a lactate 3.8 initially and repeat times 2:02 and 1/2 L of fluid remains at 3.1 magnesium 1.4, supplemented with 1 g of mag and oral magnesium, urinalysis does not show evidence of acute abnormality Assessment and plan: Complex 70-year-old female presenting with nausea vomiting and profound weakness. Labs are reassuring aside from lactate which has remained relatively stable above 3 which is concerning for acute lactic acidosis, I do see that her leflunomide could be contributing to this. Patient received 1 g of IV magnesium, 2.5 L of NS, Compazine 10 mg despite receiving IV fluids and p.o. fluids, this remains elevated and given that she remains weak I think she would benefit from observation. We will pend blood cultures although my concern for sepsis is quite low. I do not see an obvious source of infection her lungs are clear I do not think she warrants a chest x-ray necessarily she is not hypoxic, abdomen and pelvis is nontender I do not feel like she needs CT scan at this time. I have very low suspicion that patient has any infection in her left knee given that her inflammatory marker CRP and sed rate are quite low. At this time given her lactic acidosis I think she would benefit from overnight observation with slight fluid resuscitation and repeat lactate in the morning. Patient agreeable to admission, case discussed initially with Dr. Szymanski and accepted by Dr Farrell. Quality:SDOH Health Related Social Needs: Health related social needs education Health related social needs details pt independent at home with minimal assistance from spouse [facility] All Active Problems (Updated 07/24/25 @ 19:12 by Jourdan Farrell MD) Lactic acid acidosis (Acute) Immunocompromised state (Acute) Weakness (Acute) Hypomagnesemia (Acute) Nausea & vomiting (Acute) MRSA cellulitis (Acute) Chronic pain disorder (Chronic) Lumbar radiculitis (Acute) Postlaminectomy syndrome of lumbar region (Acute) GERD (gastroesophageal reflux disease) (Chronic) Diffuse spasm of esophagus (Acute) Spondylosis (Acute) Cardiomegaly (Acute) Heart murmur (Acute) Mild intermittent asthma (Acute) Pure hypercholesterolemia (Acute) Lymphedema (Acute) Peripheral venous insufficiency (Acute) Spasm of back muscles (Acute) Actinic keratosis (Acute) Aortic valve stenosis, nonrheumatic (Acute) Acute bronchitis (Acute) Fatigue (Acute) Nausea (Acute) Chronic cough (Acute) Snoring (Acute) Dyspnea on exertion (Acute) Daytime somnolence (Acute) Exacerbation of intermittent asthma (Acute) Otitis externa (Acute) Insomnia (Acute) Candidiasis of mouth (Acute) Influenza A (Acute) Diabetes mellitus (Chronic) Psoriatic arthritis (Acute) Renal insufficiency (Chronic) Polypharmacy (Acute) Bacteremia (Acute) Pneumonia (Acute) COVID (Acute) Cellulitis and abscess of foot (Acute) Contusion of right foot (Acute) Sepsis (Acute) Bone infection of left foot (Acute) Status post total left knee replacement (Acute) Pain (Acute) Lower extremity pain (Acute) Medical History Effusion of knee Vertigo Urinary disorder Skin disorder Syncope Musculoskeletal disease Motion sickness Liver disease Irregular heart beat Infection Genital disease, female Eye problem ENT disease Elevated cholesterol Digestive problems Complication of anesthesia Circulatory disease Cancer Breathing problem Basal cell carcinoma Chest pain Postoperative anemia due to acute blood loss Hyperlipidemia Hepatosplenomegaly Gait abnormality DVT (deep venous thrombosis) Complex regional pain syndrome type 2 of lower extremity Spinal stenosis Age related osteoporosis Abnormal liver function Failed total knee arthroplasty Fecal impaction Crushing injury of unspecified knee, sequela Chronic prescription opiate use History of falling Obesity Rupture of left quadriceps tendon Fracture of metatarsal of left foot, closed Pain in right ankle and joints of right foot Psoriasis Prepatellar bursitis Quadriceps tendon rupture History of basal cell carcinoma Loose orthopedic implant MOELLER (nonalcoholic steatohepatitis) Type 2 diabetes mellitus Asthma Arthritis Elevated troponin Severe sepsis Acute UTI Chronic pain Edema, peripheral Bacteremia due to group B Streptococcus Surgical History History of endoscopy History of laparotomy Hx of colonoscopy Status post left knee replacement Artificial knee joint present History of arthroplasty of left knee History of total knee arthroplasty History of lumbar surgery S/P revision of total knee Hx of hysterectomy Hx of spinal surgery Hx of laminectomy History of left knee replacement s/p revision for infected prosthesis Family History Brother Cancer family hx of cancer Sister Cancer Diabetes High cholesterol Hypertension Father Stroke Diabetes Coronary artery disease Heart disease High cholesterol Hypertension Thrombophilia Mother Mental disorder Osteoporosis Maternal Grandmother Breast cancer Cancer Sister High cholesterol Hypertension Diabetes Social History Smoking/Tobacco Use Status: Never Smoking risk assessment performed?: Yes Alcohol Intake: current Alcohol Intake frequency: holidays/special occasions only Drug use: Never Substance use type: marijuana Details: occasionally will do a THC edible Housing: house Do you feel safe at home: Yes Do you feel safe in your relationship?: Yes Additional Social history: Lives with in [place]. Retired, formerly managed primary care offices in [facility].
--- NOTE | 2025-07-24 20:16 | W.PC.ACHO ---
Registration Status: REG ER Primary Language: Preferred Language: Tamazight ED Information & Data Chief Complaint Nausea/Vomit/Diar 07/24/25 19:50 Triage Note vomiting and weakness since 07/24/25 10:31 yesterday, low grade fever at home, denies pain unable to keep food/drink down Medical / Surgical History (Last Reviewed 10/14/24 @ 18:00 by Andres Cotter MD) Non-ST elevation FL (NSTEMI) Effusion of knee Vertigo Urinary disorder Skin disorder Syncope Musculoskeletal disease Motion sickness Liver disease Irregular heart beat Infection Genital disease, female Eye problem ENT disease Elevated cholesterol Digestive problems Complication of anesthesia Circulatory disease Cancer Breathing problem Basal cell carcinoma Chest pain Postoperative anemia due to acute blood loss Hyperlipidemia Hepatosplenomegaly Gait abnormality DVT (deep venous thrombosis) Complex regional pain syndrome type 2 of lower extremity Spinal stenosis Age related osteoporosis Abnormal liver function Failed total knee arthroplasty Fecal impaction Crushing injury of unspecified knee, sequela Chronic prescription opiate use History of falling Obesity Rupture of left quadriceps tendon Fracture of metatarsal of left foot, closed Pain in right ankle and joints of right foot Psoriasis Prepatellar bursitis Quadriceps tendon rupture History of basal cell carcinoma Loose orthopedic implant MOELLER (nonalcoholic steatohepatitis) Type 2 diabetes mellitus Asthma Arthritis Elevated troponin Severe sepsis Acute UTI Chronic pain Edema, peripheral Bacteremia due to group B Streptococcus (Last Reviewed 10/14/24 @ 18:00 by Andres Cotter MD) History of endoscopy History of laparotomy Hx of colonoscopy Status post left knee replacement Artificial knee joint present History of arthroplasty of left knee History of total knee arthroplasty History of lumbar surgery S/P revision of total knee Hx of hysterectomy Hx of spinal surgery Hx of laminectomy History of left knee replacement Most Recent Vital Signs Temperature 36.7 C 07/24/25 11:19 Pulse 94 H 07/24/25 18:06 Pulse 96 H 07/24/25 14:50 Respiratory Rate 16 07/24/25 18:06 Blood Pressure 174/92 H 07/24/25 18:06 Blood Pressure Mean 119 07/24/25 18:06 Pulse Oximetry 98 07/24/25 18:06 Oxygen Delivery Method Room Air 07/24/25 10:31 Oxygen Flow Rate 0 07/24/25 10:31 Pain Level 7 07/24/25 17:52 Allergies capsaicin Allergy (Severe, Unverified 07/24/25 10:35) Anaphylaxsis clarithromycin (From Biaxin) Allergy (Intermediate, Unverified 07/24/25 10:35) Skin Rash Penicillins Allergy (Intermediate, Unverified 07/24/25 10:35) Skin Rash Sulfa (Sulfonamide Antibiotics) Allergy (Intermediate, Unverified 07/24/25 10:35) Skin Rash nickel Allergy (Mild, Unverified 07/24/25 10:35) Itching acitretin Allergy (Unknown, Unverified 07/24/25 10:35) Swelling/Edema amoxicillin Allergy (Unknown, Unverified 07/24/25 10:35) Unknown jiang pepper Allergy (Unknown, Unverified 07/24/25 10:35) Unknown cefazolin Allergy (Unknown, Unverified 07/24/25 10:35) Unknown gabapentin Allergy (Unknown, Unverified 07/24/25 10:35) Dizziness/Lighthead infliximab (From Remicade) Allergy (Unknown, Unverified 07/24/25 10:35) passed out isoniazid Allergy (Unknown, Unverified 07/24/25 10:35) Unknown oxycodone Allergy (Unknown, Unverified 07/24/25 10:35) Other (See Comment) Stomach upset has tolerates Oxycodone in the past (7.28.22) tramadol Allergy (Unknown, Unverified 07/24/25 10:35) Other (See Comment) Pt has tolerated oxycodone in the past (7.28.22) IV IV Catheter Type [Left Wrist] Saline Lock IV Catheter Gauge [Left Wrist] 18 Diagnostics 07/24/25 07/24/25 07/24/25 Range/Units 18:05 16:15 15:05 WBC (4.4-10.8) 10^3/uL RBC (3.93-5.22) 10^6/uL Hgb (11.2-15.7) g/dL Hct (36.0-46.0) % MCV (80-95) fL MCH (27.0-33.0) pg MCHC (32.0-36.0) % RDW (11.7-14.6) % Plt Count (130-400) 10^3/uL MPV (8.0-11.0) fL Immature Gran % % Neutrophils % % Lymphocytes % % Monocytes % % Eosinophils % % Basophils % % Nucleated RBC % (0.0-0.3) % Absolute Neutrophils (1.2-6.7) 10^3/uL Absolute Lymphocytes (1.2-3.4) 10^3/uL Absolute Monocytes (0.1-0.8) 10^3/uL Absolute Eosinophils (0.0-0.7) 10^3/uL Absolute Basophils (0.0-0.2) 10^3/uL ESR (0-30) mm/hr VBG pH (7.31-7.41) VBG pCO2 (41-51) mmHg VBG pO2 mmHg VBG HCO3 (23-28) mmol/L VBG Total CO2 (24-29) mmol/L VBG O2 Saturation % VBG Base Excess (-2-3) mmol/L VBG Lactate 3.1 H* 3.4 H* 3.4 H* (<or=2.0) mmol/L Sodium (136-145) mmol/L Potassium (3.5-5.1) mmol/L Chloride (98-107) mmol/L Carbon Dioxide (20.0-31.0) mmol/L Anion Gap (3-11) mmol/L BUN (9-23) mg/dL Creatinine (0.55-1.02) mg/dL Est GFR (CKD-EPI 2020) (mL/min/1.73m2) Glucose (74-106) mg/dL Calcium (8.3-10.6) mg/dL Magnesium (1.6-2.6) mg/dL Total Bilirubin (0.2-1.2) mg/dL AST (<34) U/L ALT (10-49) U/L Alkaline Phosphatase (46-116) U/L Troponin I (<35) ng/L C-Reactive Protein (<=0.50) mg/dL Total Protein (5.7-8.2) g/dL Albumin (3.2-5.0) g/dL Lipase (<53) U/L Urine Color (Yellow) Urine Clarity (Clear) Urine pH (5-8) Ur Specific Pelican (1.005-1.025) Urine Protein (Neg-Trace) mg/dL Urine Ketones (Negative) mg/dL Urine Blood (Negative) Urine Nitrite (Negative) Urine Bilirubin (Negative) Urine Urobilinogen (Up to 0.2) mg/dL Ur Leukocyte Esterase (Negative) Urine RBC (0-2) HPF Urine WBC (0-5) HPF Ur Epithelial Cells (Negative) HPF Urine Crystals (Negative) HPF Urine Bacteria (Negative) HPF Urine Casts (Negative) LPF Urine Mucus (Negative) Ur Culture Indicated? Urine Glucose (Negative) mg/dL COVID-19 Source SARS-CoV-2 (PCR) Influenza Type A (PCR) Influenza Type B (PCR) RSV (PCR) 07/24/25 07/24/25 07/24/25 Range/Units 12:25 12:20 11:55 WBC 5.81 (4.4-10.8) 10^3/uL RBC 3.87 L (3.93-5.22) 10^6/uL Hgb 10.7 L (11.2-15.7) g/dL Hct 33.9 L (36.0-46.0) % MCV 88 (80-95) fL MCH 27.6 (27.0-33.0) pg MCHC 31.6 L (32.0-36.0) % RDW 15.0 H (11.7-14.6) % Plt Count 309 (130-400) 10^3/uL MPV 10.0 (8.0-11.0) fL Immature Gran % 0.2 % Neutrophils % 37.4 % Lymphocytes % 42.3 % Monocytes % 11.5 % Eosinophils % 6.5 % Basophils % 2.1 % Nucleated RBC % 0.0 (0.0-0.3) % Absolute Neutrophils 2.17 (1.2-6.7) 10^3/uL Absolute Lymphocytes 2.46 (1.2-3.4) 10^3/uL Absolute Monocytes 0.67 (0.1-0.8) 10^3/uL Absolute Eosinophils 0.38 (0.0-0.7) 10^3/uL Absolute Basophils 0.12 (0.0-0.2) 10^3/uL ESR 26 (0-30) mm/hr VBG pH (7.31-7.41) VBG pCO2 (41-51) mmHg VBG pO2 mmHg VBG HCO3 (23-28) mmol/L VBG Total CO2 (24-29) mmol/L VBG O2 Saturation % VBG Base Excess (-2-3) mmol/L VBG Lactate (<or=2.0) mmol/L Sodium (136-145) mmol/L Potassium (3.5-5.1) mmol/L Chloride (98-107) mmol/L Carbon Dioxide (20.0-31.0) mmol/L Anion Gap (3-11) mmol/L BUN (9-23) mg/dL Creatinine (0.55-1.02) mg/dL Est GFR (CKD-EPI 2020) (mL/min/1.73m2) Glucose (74-106) mg/dL Calcium (8.3-10.6) mg/dL Magnesium (1.6-2.6) mg/dL Total Bilirubin (0.2-1.2) mg/dL AST (<34) U/L ALT (10-49) U/L Alkaline Phosphatase (46-116) U/L Troponin I 16 (<35) ng/L C-Reactive Protein (<=0.50) mg/dL Total Protein (5.7-8.2) g/dL Albumin (3.2-5.0) g/dL Lipase (<53) U/L Urine Color Yellow (Yellow) Urine Clarity Clear (Clear) Urine pH 5.5 (5-8) Ur Specific Pelican 1.020 (1.005-1.025) Urine Protein 30 H (Neg-Trace) mg/dL Urine Ketones Negative (Negative) mg/dL Urine Blood Negative (Negative) Urine Nitrite Negative (Negative) Urine Bilirubin Negative (Negative) Urine Urobilinogen 0.2 (Up to 0.2) mg/dL Ur Leukocyte Esterase Negative (Negative) Urine RBC Negative (0-2) HPF Urine WBC Negative (0-5) HPF Ur Epithelial Cells Rare (Negative) HPF Urine Crystals Negative (Negative) HPF Urine Bacteria Negative (Negative) HPF Urine Casts 0-2 Hyaline (Negative) LPF Urine Mucus Trace (Negative) Ur Culture Indicated? No Urine Glucose Negative (Negative) mg/dL COVID-19 Source SARS-CoV-2 (PCR) Influenza Type A (PCR) Influenza Type B (PCR) RSV (PCR) 07/24/25 07/24/25 07/24/25 Range/Units 11:11 11:11 11:11 WBC (4.4-10.8) 10^3/uL RBC (3.93-5.22) 10^6/uL Hgb (11.2-15.7) g/dL Hct (36.0-46.0) % MCV (80-95) fL MCH (27.0-33.0) pg MCHC (32.0-36.0) % RDW (11.7-14.6) % Plt Count (130-400) 10^3/uL MPV (8.0-11.0) fL Immature Gran % % Neutrophils % % Lymphocytes % % Monocytes % % Eosinophils % % Basophils % % Nucleated RBC % (0.0-0.3) % Absolute Neutrophils (1.2-6.7) 10^3/uL Absolute Lymphocytes (1.2-3.4) 10^3/uL Absolute Monocytes (0.1-0.8) 10^3/uL Absolute Eosinophils (0.0-0.7) 10^3/uL Absolute Basophils (0.0-0.2) 10^3/uL ESR (0-30) mm/hr VBG pH 7.31 (7.31-7.41) VBG pCO2 50 (41-51) mmHg VBG pO2 35 mmHg VBG HCO3 25 (23-28) mmol/L VBG Total CO2 23 L (24-29) mmol/L VBG O2 Saturation 57 % VBG Base Excess -1 (-2-3) mmol/L VBG Lactate Cancelled 3.8 H* (<or=2.0) mmol/L Sodium 139 (136-145) mmol/L Potassium 3.7 (3.5-5.1) mmol/L Chloride 104 (98-107) mmol/L Carbon Dioxide 24.5 (20.0-31.0) mmol/L Anion Gap 10.5 (3-11) mmol/L BUN 19 (9-23) mg/dL Creatinine 0.81 (0.55-1.02) mg/dL Est GFR (CKD-EPI 2020) 70.09 (mL/min/1.73m2) Glucose 121 H (74-106) mg/dL Calcium 10.5 (8.3-10.6) mg/dL Magnesium 1.4 L (1.6-2.6) mg/dL Total Bilirubin 0.70 (0.2-1.2) mg/dL AST 21 (<34) U/L ALT < 7 L (10-49) U/L Alkaline Phosphatase 139 H (46-116) U/L Troponin I 18 (<35) ng/L C-Reactive Protein Cancelled 1.34 H (<=0.50) mg/dL Total Protein 6.8 (5.7-8.2) g/dL Albumin 3.8 (3.2-5.0) g/dL Lipase 20 (<53) U/L Urine Color (Yellow) Urine Clarity (Clear) Urine pH (5-8) Ur Specific Pelican (1.005-1.025) Urine Protein (Neg-Trace) mg/dL Urine Ketones (Negative) mg/dL Urine Blood (Negative) Urine Nitrite (Negative) Urine Bilirubin (Negative) Urine Urobilinogen (Up to 0.2) mg/dL Ur Leukocyte Esterase (Negative) Urine RBC (0-2) HPF Urine WBC (0-5) HPF Ur Epithelial Cells (Negative) HPF Urine Crystals (Negative) HPF Urine Bacteria (Negative) HPF Urine Casts (Negative) LPF Urine Mucus (Negative) Ur Culture Indicated? Urine Glucose (Negative) mg/dL COVID-19 Source SARS-CoV-2 (PCR) Influenza Type A (PCR) Influenza Type B (PCR) RSV (PCR) 07/24/25 Range/Units 10:29 WBC (4.4-10.8) 10^3/uL RBC (3.93-5.22) 10^6/uL Hgb (11.2-15.7) g/dL Hct (36.0-46.0) % MCV (80-95) fL MCH (27.0-33.0) pg MCHC (32.0-36.0) % RDW (11.7-14.6) % Plt Count (130-400) 10^3/uL MPV (8.0-11.0) fL Immature Gran % % Neutrophils % % Lymphocytes % % Monocytes % % Eosinophils % % Basophils % % Nucleated RBC % (0.0-0.3) % Absolute Neutrophils (1.2-6.7) 10^3/uL Absolute Lymphocytes (1.2-3.4) 10^3/uL Absolute Monocytes (0.1-0.8) 10^3/uL Absolute Eosinophils (0.0-0.7) 10^3/uL Absolute Basophils (0.0-0.2) 10^3/uL ESR (0-30) mm/hr VBG pH (7.31-7.41) VBG pCO2 (41-51) mmHg VBG pO2 mmHg VBG HCO3 (23-28) mmol/L VBG Total CO2 (24-29) mmol/L VBG O2 Saturation % VBG Base Excess (-2-3) mmol/L VBG Lactate (<or=2.0) mmol/L Sodium (136-145) mmol/L Potassium (3.5-5.1) mmol/L Chloride (98-107) mmol/L Carbon Dioxide (20.0-31.0) mmol/L Anion Gap (3-11) mmol/L BUN (9-23) mg/dL Creatinine (0.55-1.02) mg/dL Est GFR (CKD-EPI 2020) (mL/min/1.73m2) Glucose (74-106) mg/dL Calcium (8.3-10.6) mg/dL Magnesium (1.6-2.6) mg/dL Total Bilirubin (0.2-1.2) mg/dL AST (<34) U/L ALT (10-49) U/L Alkaline Phosphatase (46-116) U/L Troponin I (<35) ng/L C-Reactive Protein (<=0.50) mg/dL Total Protein (5.7-8.2) g/dL Albumin (3.2-5.0) g/dL Lipase (<53) U/L Urine Color (Yellow) Urine Clarity (Clear) Urine pH (5-8) Ur Specific Pelican (1.005-1.025) Urine Protein (Neg-Trace) mg/dL Urine Ketones (Negative) mg/dL Urine Blood (Negative) Urine Nitrite (Negative) Urine Bilirubin (Negative) Urine Urobilinogen (Up to 0.2) mg/dL Ur Leukocyte Esterase (Negative) Urine RBC (0-2) HPF Urine WBC (0-5) HPF Ur Epithelial Cells (Negative) HPF Urine Crystals (Negative) HPF Urine Bacteria (Negative) HPF Urine Casts (Negative) LPF Urine Mucus (Negative) Ur Culture Indicated? Urine Glucose (Negative) mg/dL COVID-19 Source Cancelled SARS-CoV-2 (PCR) Cancelled Influenza Type A (PCR) Cancelled Influenza Type B (PCR) Cancelled RSV (PCR) Cancelled 07/24/25 11:11 Blood Culture - Pending Blood Intake and Output - 24 Hour Total 07/24/25 10:21 thru 07/24/25 16:25 Intake Total 3100 Balance 3100 Weight 168 lb 10.458 oz Intake: IV 3100 Falls Risk Assessment History of Falls No History 07/24/25 11:19 Contributing Factors No Factors 07/24/25 11:19 Ambulatory Aids Uses ambulatory device + 07/24/25 11:19 Tubes/Lines W/no contributing factors 07/24/25 11:19 Gait Evaluation W/any additional score 07/24/25 11:19 Cognition Cognitive impairment 07/24/25 11:19 Fall Total Score 75 07/24/25 11:19 Level of Risk High Risk 07/24/25 11:19 Problems (Last Reviewed 10/14/24 @ 18:00 by Andres Cotter MD) Lactic acid acidosis (Acute) Immunocompromised state (Acute) Weakness (Acute) Notes 07/24/25 15:14 Nursing Notes by [facility] Face to face faxed to home health Nursing Note: Initialized on 07/24/25 15:14 - END OF NOTE Attestation Statement: By documenting the first initial, last name, and credentials of the reporting nurse below, both parties acknowledge that all relevant information regarding the patient handoff has been communicated, and that all questions have been addressed to ensure continuity and safety of care. Additional Patient Information/Comments: Alert and oriented x4, poor historian, hypomag-chronic, recieved 1gm mag in ED. Lactate is down from initial draw, hard stick, required US guided access. Lab unsuccessful with blood draws. 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 Stand by assist to commode. Report Received From: Vangie Cole RN
[2025-07-24] MEDS: Zolpidem 10 MG TAB PO (21:17)
[2025-07-24] MEDS: Gabapentin 300 MG CAP PO (21:17)
[2025-07-24] MEDS: oxyCODONE 5 MG TAB 10 MG PO (23:30)
[2025-07-25 03:30] VITALS: BP 148/50; PULSE 110; RESP 18; TEMP 36.3; O2SAT 93
[2025-07-25] MEDS: Acetaminophen 500 MG TAB 1000 MG PO (06:11)
[2025-07-25 06:17] VITALS: PULSE 108
[2025-07-25 06:43] LABS: HCT 32.2 % (36.0-46.0); HGB 10.3 g/dL (11.2-15.7); MCH 27.4 pg (27.0-33.0); MCHC 32.0 % (32.0-36.0); MCV 86 fL (80-95); MPV 10.6 fL (8.0-11.0); Platelet Count 324 10^3/uL (130-400); RBC 3.76 10^6/uL (3.93-5.22); RDW 14.8 % (11.7-14.6); RDW-SD 46.8 fL; WBC 6.00 10^3/uL (4.4-10.8)
[2025-07-25 07:04] LABS: Anion Gap 10.9 mmol/L (3-11); BUN 13 mg/dL (9-23); CO2 23.1 mmol/L (20.0-31.0); Calcium 9.8 mg/dL (8.3-10.6); Chloride 108 mmol/L (98-107); Glucose 112 mg/dL (74-106); Potassium 3.7 mmol/L (3.5-5.1); Sodium 142 mmol/L (136-145)
[2025-07-25 07:08] LABS: Magnesium 1.6 mg/dL (1.6-2.6)
[2025-07-25 07:42] VITALS: BP 171/69; PULSE 103; RESP 17; TEMP 36.7; O2SAT 92
[2025-07-25] MEDS: Atorvastatin 20 MG TAB 10 MG PO (08:45)
[2025-07-25] MEDS: Metoprolol 50 MG TAB 100 MG PO (08:45)
[2025-07-25] MEDS: Aspirin 81 MG CHEW PO (08:45)
[2025-07-25] MEDS: Esomeprazole 40 MG CAPCR PO (08:45)
[2025-07-25] MEDS: Gabapentin 300 MG CAP PO (08:45)
[2025-07-25] MEDS: Lisinopril 10 MG TAB 40 MG PO (08:46)
[2025-07-25] MEDS: methylPREDNISolone 4 MG TAB PO (08:46)
--- NOTE | 2025-07-25 08:59 | TELEP.MEDREC ---
Date of service: 07/25/25 Time of Service: 08:59 Telepharmacy Home Med Rec Allergies Allergies: capsaicin Allergy (Severe, Unverified 07/24/25 10:35) Anaphylaxsis clarithromycin (From Biaxin) Allergy (Intermediate, Unverified 07/24/25 10:35) Skin Rash Penicillins Allergy (Intermediate, Unverified 07/24/25 10:35) Skin Rash Sulfa (Sulfonamide Antibiotics) Allergy (Intermediate, Unverified 07/24/25 10:35) Skin Rash nickel Allergy (Mild, Unverified 07/24/25 10:35) Itching acitretin Allergy (Unknown, Unverified 07/24/25 10:35) Swelling/Edema amoxicillin Allergy (Unknown, Unverified 07/24/25 10:35) Unknown jiang pepper Allergy (Unknown, Unverified 07/24/25 10:35) Unknown cefazolin Allergy (Unknown, Unverified 07/24/25 10:35) Unknown gabapentin Allergy (Unknown, Unverified 07/24/25 10:35) Dizziness/Lighthead infliximab (From Remicade) Allergy (Unknown, Unverified 07/24/25 10:35) passed out isoniazid Allergy (Unknown, Unverified 07/24/25 10:35) Unknown oxycodone Allergy (Unknown, Unverified 07/24/25 10:35) Other (See Comment) tramadol Allergy (Unknown, Unverified 07/24/25 10:35) Other (See Comment) Interview Person Interviewed: Patient was interviewed but was unable to assist with med list. [facility] record reviewed (admitted until 06/24 with several follow up visits). Called PCP [facility] who has not seen pt since before admission to . Most recent med list utilized as best information available. Quality Quality of Interview/Accuracy of Medication List: Good Sources Sources used to compile medication list: MRI Interventions Medication List, PCP/Specialist List, Retail Pharmacy and Other Changes made to Home Medication List: ADDITIONS: Albuterol Nebs Amlodipine Folic Acid 1 mg metoprolol XL Oxycodone 10 mg Duloxetine 30 mg Rifampin' Saline Nasal Breo DELETIONS: APAP Albuterol Inhaler Voltaren Benadryl Duloxetine 60 mg Folic Acid 800 mcg Indapamide Lisinopril Duplicate Mg++ Metoprolol tartrate Oxycodone 5 mg K+ Compazine (duplicate) CHANGES: Elderberry directions Gabapentin directions Ketoconazole directions Glargine to 10 units Recommended Changes Attestation: The home medication list is now updated to the best of my knowledge and is ready to be reconciled by the provider. Please contact the TelePharmacy Medication Reconciliation Pharmacist at for any questions.
--- NOTE | 2025-07-25 09:34 | PDOC.CMIN ---
Date of service: 07/25/25 Time of Service: 09:34 Care Management Initial Assmt Initial Assessment Reason for Hospitalization: n/v, weakness, lactic acidosis Functional Status/Living Situation Patient Presentation: Michelle presented to the ED yesterday evening with c/o nausea, unable to tolerate POs, and weakness. She also stated that she had multiple episodes of nonbilious nonbloody vomiting. Michelle was discharged from [facility] 2 weeks ago after being treated at [facility] for osteomyelitis of her left knee after a TKR. Michelle is feeling much better today, still a little weak, but much improved. Her labs improved greatly. Michelle has a 3pm appointment with her surgeon at [facility] today, and is being discharged in order to make that appointment. Michelle and her were visiting when met with her today. They were both very pleasant, and very pleased to know that Michelle will be able to make her surgical f/u. Michelle and Albino denied the need for any community services at this time. Town of Residence: [place] Resides with: Spouse (Albino) Employment Status: Retired Instrumental Activities of Daily Living (ADLs): Independent Medications Medication Management: No Issues/Barriers identified Physical Functioning/Mobility Assistive Device: none Advance Directives Advance Directives: Do you have an Advance Directive: N 03/29/13, 15:18 AD On File at [facility]: N 10/26/12, 14:49 Date Asked 07/24/25 07/24/25, 10:47 AD Date Reviewed COLST On File at [facility] No 04/28/21, 18:19 COLST Date Scanned Code Status Resuscitation Status Full Code Insurance Coverage/Financial Issues Insurance: Medicare Part A & B - [id number] /[facility] Care Team Visit Care Team Role Provider Type Jorge Graham MD [facility] STAFF PHYSICIAN Melissa Garcia Primary Care Provider NON-[facility] STAFF PHYSICIAN KATHI Sanchez Emergency Provider [facility] [employer] Jourdan Farrell MD Admit Provider [facility] STAFF PHYSICIAN Attending Provider Discharge Potential Discharge Needs: PCP F/U Appt and Surgical F/U Appt (ortho) Anticipated Barriers to Discharge: None Identified Patient/Family Education Needs: Review discharge instructions, discuss Ask Me Three Transportation: Private vehicle Plan: Michelle is discharged today with no new orders. She will f/u with her PCP and her orthopedic surgeon, and continue per her plan of care. Michelle will transport home with her . Social Determinants of Health Screening Social Determinants of health last assessed in clinic: 07/25/25 Will the Patient Participate in the Screening?: Yes Do you worry about having a steady place to live?: no Problems where you live: no known problems In the past 12 months, have you had to go without electric, gas, oil or water in your home?: no 1. Within the past 12 months, we worried whether our food would run out before we got money to buy more.: Don't know/refused 2. Within the past 12 months, the food we bought just didn't last and we didn't have money to get more.: Don't know/refused Has lack of transportation kept you from medical appointments or from doing things needed for daily living?: no Has anyone in your life made you feel unsafe or unsupported?: no How hard is it for you to pay for the very basics like food, housing, medical care, and heating? Would you say it is:: Not hard at all Do you want help finding or keeping work or a job?: I do not need or want help If for any reason you need help with day-to-day activities such as bathing, preparing meals, shopping, managing finances, etc., do you get the help you need?: I get all the help I need How often do you feel lonely or isolated from those around you?: Never Do you speak a language other than [place] at home?: Yes Does the patient want assistance with any of the above?: No Health Related Social Needs Health related social needs: education (Z55.6) PFSH All Active Problems (Updated 07/24/25 @ 19:12 by Jourdan Farrell MD) Lactic acid acidosis (Acute) Immunocompromised state (Acute) Weakness (Acute) Hypomagnesemia (Acute) Nausea & vomiting (Acute) MRSA cellulitis (Acute) Chronic pain disorder (Chronic) Lumbar radiculitis (Acute) Postlaminectomy syndrome of lumbar region (Acute) GERD (gastroesophageal reflux disease) (Chronic) Diffuse spasm of esophagus (Acute) Spondylosis (Acute) Cardiomegaly (Acute) Heart murmur (Acute) Mild intermittent asthma (Acute) Pure hypercholesterolemia (Acute) Lymphedema (Acute) Peripheral venous insufficiency (Acute) Spasm of back muscles (Acute) Actinic keratosis (Acute) Aortic valve stenosis, nonrheumatic (Acute) Acute bronchitis (Acute) Fatigue (Acute) Nausea (Acute) Chronic cough (Acute) Snoring (Acute) Dyspnea on exertion (Acute) Daytime somnolence (Acute) Exacerbation of intermittent asthma (Acute) Otitis externa (Acute) Insomnia (Acute) Candidiasis of mouth (Acute) Influenza A (Acute) Diabetes mellitus (Chronic) Psoriatic arthritis (Acute) Renal insufficiency (Chronic) Polypharmacy (Acute) Bacteremia (Acute) Pneumonia (Acute) COVID (Acute) Cellulitis and abscess of foot (Acute) Contusion of right foot (Acute) Sepsis (Acute) Bone infection of left foot (Acute) Status post total left knee replacement (Acute) Pain (Acute) Lower extremity pain (Acute) Medical History Effusion of knee Vertigo Urinary disorder Skin disorder Syncope Musculoskeletal disease Motion sickness Liver disease Irregular heart beat Infection Genital disease, female Eye problem ENT disease Elevated cholesterol Digestive problems Complication of anesthesia Circulatory disease Cancer Breathing problem Basal cell carcinoma Chest pain Postoperative anemia due to acute blood loss Hyperlipidemia Hepatosplenomegaly Gait abnormality DVT (deep venous thrombosis) Complex regional pain syndrome type 2 of lower extremity Spinal stenosis Age related osteoporosis Abnormal liver function Failed total knee arthroplasty Fecal impaction Crushing injury of unspecified knee, sequela Chronic prescription opiate use History of falling Obesity Rupture of left quadriceps tendon Fracture of metatarsal of left foot, closed Pain in right ankle and joints of right foot Psoriasis Prepatellar bursitis Quadriceps tendon rupture History of basal cell carcinoma Loose orthopedic implant MOELLER (nonalcoholic steatohepatitis) Type 2 diabetes mellitus Asthma Arthritis Elevated troponin Severe sepsis Acute UTI Chronic pain Edema, peripheral Bacteremia due to group B Streptococcus Surgical History History of endoscopy History of laparotomy Hx of colonoscopy Status post left knee replacement Artificial knee joint present History of arthroplasty of left knee History of total knee arthroplasty History of lumbar surgery S/P revision of total knee Hx of hysterectomy Hx of spinal surgery Hx of laminectomy History of left knee replacement s/p revision for infected prosthesis Family History Brother Cancer family hx of cancer Sister Cancer Diabetes High cholesterol Hypertension Father Stroke Diabetes Coronary artery disease Heart disease High cholesterol Hypertension Thrombophilia Mother Mental disorder Osteoporosis Maternal Grandmother Breast cancer Cancer Sister High cholesterol Hypertension Diabetes Social History Smoking/Tobacco Use Status: Never Smoking risk assessment performed?: Yes Alcohol Intake: current Alcohol Intake frequency: holidays/special occasions only Drug use: Never Substance use type: marijuana Details: occasionally will do a THC edible Housing: house Do you feel safe at home: Yes Do you feel safe in your relationship?: Yes Additional Social history: Lives with in [place]. 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
--- NOTE | 2025-07-25 09:44 | W.PM.DS.N ---
Date of service: 07/25/25 Time of Service: 09:44 DS: Diagnosis Discharge Diagnosis (1) Lactic acid acidosis: Status: Acute (2) Nausea & vomiting: Status: Acute (3) Immunocompromised state: Status: Acute (4) Lymphedema: Status: Acute (5) Type 2 diabetes mellitus: Discharge Plan Disposition Patient Disposition: Home Condition: Good Discharge Details Reason For Visit: Lactic Acidosis Admit Date/Time: 07/24/25 19:11 Admit Provider: Jourdan Farrell Attending Provider: Jourdan Farrell Primary Care Provider: Melissa Garcia Hospital Course Hospital Course: 70-year-old female with past medical history of rheumatoid arthritis, hyperlipidemia, hypertension, and recent osteomyelitis of the left knee on rifampin and doxycycline and recently completed daptomycin who presented to the emergency department with nausea that began the day prior. She could not tolerate oral fluids and her lactate was 3.4, and 3.1 three hours later after IV hydration in the ED. She was admitted to observation and given IV fluids and antiemetics. She was concerned the nausea and vomiting was caused by her leflunomide, and this was held. Her magnesium was low at 1.4 and was replaced. By the next morning, her nausea and vomiting had resolved and her lactate normalized at 1.4. She was discharged to follow up with [facility] and rheumatology. Recommendations for Follow Up Recommended tests to be ordered by follow up provider: BMPmagnesium 1 week Home Meds and New Rx's Prescriptions: New prochlorperazine maleate [Compazine] 5 mg tablet 5 - 10 mg PO TID PRNQty: 20 0RF magnesium oxide 420 mg tablet 420 mg PO DAILY Qty: 10 0RF Continued ipratropium-albuterol 0.5 mg-3 mg(2.5 mg base)/3 mL solution for nebulization 3 ml inhalation Q4H PRN tizanidine 2 mg tablet 2 mg PO Q8H PRN fluconazole 100 mg tablet 100 mg PO DAILY PRN cholecalciferol (vitamin D3) 50 mcg (2,000 unit) capsule 50 mcg PO DAILY elderberry fruit 1 cap PO DAILY nystatin 100,000 unit/mL suspension See Rx Instructions PO DIRECTED Rx Instructions: orally as directed; swish and swallow methylprednisolone 4 MG tablet 4 mg PO DAILY esomeprazole magnesium [Nexium] 40 MG capsule,delayed release(DR/EC) 40 mg PO DAILY zolpidem 10 MG tablet 10 mg PO HS ondansetron HCl 4 mg tablet 4 mg PO Q8H PRN PRN montelukast [Singulair] 10 mg tablet 10 mg PO DAILY calcium citrate 200 mg (950 mg) tablet 200 mg PO BID Patient Comments: TAKE ONE TABLET BY MOUTH ONCE DAILY aspirin 81 mg Tablet,Chewable 81 mg PO DAILY Multi Vitamin 9 mg iron/15 mL Liquid 1 mg PO DAILY insulin lispro [Humalog KwikPen Insulin] 100 unit/mL Insulin Pen See Rx Instructions .ROUTE .COMPLEX Patient Comments: 3 units for small meal 5 units for medium meal 7-8 units for large meal Do Not exceed 24 units a day Rx Instructions: Original sig- 10 units+SS sc tid with meals. Pt often skips breakfast and lunch dosing due to BG in range, normally injects 14 units sc with evening meal insulin glargine [Lantus Solostar U-100 Insulin] 100 unit/mL (3 mL) insulin pen 10 unit SUBCUT QAM atorvastatin 20 mg tablet 20 mg PO DAILY Patient Comments: TAKE 1 TABLET BY MOUTH EVERY NIGHT AT BEDTIME (DME) lancets [OneTouch Delica Plus Lancet] 33 gauge misc MISCELLANEOUS Patient Comments: USE 1 LANCET TO CHECK GLUCOSE TWICE DAILY ketoconazole 2 % cream 1 applic topical DAILY PRN (Reason: rash) albuterol sulfate 2.5 mg /3 mL (0.083 %) solution for nebulization 2.5 mg inhalation TID-QID PRN amlodipine 5 mg tablet 10 mg PO DAILY folic acid 1 mg tablet 1 mg PO DAILY Patient Comments: TAKE 1 TABLET BY MOUTH ONCE DAILY metoprolol succinate 100 mg tablet extended release 24 hr 100 mg PO DAILY oxycodone 10 mg tablet 10 mg PO QHS Hoyt Saline 0.65 % aerosol,spray 1 spray intranasal Q1-4H PRN fluticasone furoate-vilanterol [Breo Ellipta] 200-25 mcg/dose blister with device 1 inh inhalation DAILY doxycycline hyclate 100 mg capsule 100 mg PO BID duloxetine 30 mg capsule,delayed release(DR/EC) 30 mg PO DAILY rifampin 300 mg capsule 600 mg PO DAILY Patient Comments: TAKE 2 CAPSULES BY MOUTH ONCE DAILY AT 7:30 gabapentin [Neurontin] 300 mg capsule 300 mg PO TID Held leflunomide [Arava] 20 MG tablet 20 mg PO DAILY Hold Instructions: Resume on 08/08/25. Hold until directed by your i&c tech Discharge Instructions Instructions: Low Magnesium Level (DC) Additional Instructions: Hold off on the leflunomide until you can discuss this with your i&c tech. This may have contributed to your symptoms. Take Compazine (prochlorperazine) as needed for nausea and vomiting if those symptoms recur Take magnesium daily as your magnesium was low Please follow-up with your primary care physician and orthopedics at your scheduled appointments Should you develop persistent vomiting, fever, or with any new or worsening complaints please return to the emergency department for reassessment Stand Alone Forms: Portal Information Referrals: Melissa Garcia [Primary Care Provider, Medicine] Referral Note: Your pcp will call to schedule your appointment, if you haven't heard from them please reach out. Activity:: Activity as Tolerated Equipment/Supplies:: No Equipment Needed Diet:: Carb Counting Discharge Orders Discharge Orders: Discharge Order (Routine); Ordered 07/25/25 Ordered By: Jogre Graham Discharge Data Discharge Date/Time-TO BE ENTERED AT DEPARTURE: 07/25/25 11:48 DS: Summary Time Spent with Patient providing and/or coordinating discharge services: Greater than 30 minutes Status at Discharge Functional status at discharge: uses cane/walker Overall status at discharge: patient is back to baseline Mental Status: mental status grossly normal Speech and Movement: speech and movement normal Mood: congruent mood Affect: normal affect Quality:SDOH Health Related Social Needs: Health related social needs education Health related social needs details pt independent at home with minimal assistance from spouse Exam Narrative Exam Narrative: Alert and oriented, NAD. CV: RRR, 2/6 systolic murmur RUSB Lungs: CTAB, nl effort ABD: soft, NT/ND, no masses ext: trace layne LE edema. neuro: slow resting tremor left hand Psych Mental Status: mental status grossly normal Speech and Movement: speech and movement normal Mood: congruent mood Affect: normal affect DS: Data Vitals/I&O Vitals and I&O: Vital Signs Temperature 36.7 C 07/25/25 07:42 Temperature Source Temporal Artery Scan 07/25/25 07:42 Pulse 103 H 07/25/25 07:42 Pulse Rhythm Regular 07/24/25 20:32 Pulse 96 H 07/24/25 14:50 Respiratory Rate 17 12/01/25 07:42 Respiratory Effort Normal, Non-Labored 07/24/25 20:32 Respiratory Depth Normal 07/24/25 20:32 Respiratory Pattern Normal 07/24/25 20:32 Blood Pressure 171/69 H 07/25/25 07:42 Blood Pressure Mean 103 07/25/25 07:42 Pulse Oximetry 92 07/25/25 07:42 Oxygen Delivery Method Room Air 07/25/25 07:42 Oxygen Flow Rate 0 07/25/25 07:42 Pain Level 0 07/25/25 07:42 Intake & Output 07/24/25 07/24/25 07/25/25 11:59 23:59 11:59 Intake Total 3600 / 3600 250 / 250 Output Total 250 / 250 400 / 400 Balance 3350 / 3350 -150 / -150 Weight 76.5 kg 77.8 kg Intake: IV 3600 / 3600 Oral 250 / 250 Output: Urine 250 / 250 400 / 400 Other: Urine Color Yellow Yellow Urine Appearance Clear Urine Odor Normal Comment pt was unable to void bladder scan was 175 Data Completed and Pending Pending Labs at Discharge: 07/24/25 07/24/25 07/24/25 10:29 11:11 11:11 WBC RBC Hgb Hct MCV MCH MCHC RDW Plt Count MPV Immature Gran % Neutrophils % Lymphocytes % Monocytes % Eosinophils % Basophils % Nucleated RBC % Absolute Neutrophils Absolute Lymphocytes Absolute Monocytes Absolute Eosinophils Absolute Basophils ESR VBG pH 7.31 VBG pCO2 50 VBG pO2 35 VBG HCO3 25 VBG Total CO2 23 L VBG O2 Saturation 57 VBG Base Excess -1 VBG Lactate 3.8 H* Cancelled Sodium 139 Potassium 3.7 Chloride 104 Carbon Dioxide 24.5 Anion Gap 10.5 BUN 19 Creatinine 0.81 Est GFR (CKD-EPI 2020) 70.09 Glucose 121 H Calcium 10.5 Magnesium 1.4 L Total Bilirubin 0.70 AST 21 ALT < 7 L Alkaline Phosphatase 139 H Troponin I 18 C-Reactive Protein 1.34 H Total Protein Albumin Lipase Urine Color Urine Clarity Urine pH Ur Specific [place] Urine Protein Urine Ketones Urine Blood Urine Nitrite Urine Bilirubin Urine Urobilinogen Ur Leukocyte Esterase Urine RBC Urine WBC Ur Epithelial Cells Urine Crystals Urine Bacteria Urine Casts Urine Mucus Ur Culture Indicated? Urine Glucose COVID-19 Source Cancelled SARS-CoV-2 (PCR) Cancelled Influenza Type A (PCR) Cancelled Influenza Type B (PCR) Cancelled RSV (PCR) Cancelled 07/24/25 07/24/25 07/24/25 11:11 11:55 12:20 WBC 5.81 RBC 3.87 L Hgb 10.7 L Hct 33.9 L MCV 88 MCH 27.6 MCHC 31.6 L RDW 15.0 H Plt Count 309 MPV 10.0 Immature Gran % 0.2 Neutrophils % 37.4 Lymphocytes % 42.3 Monocytes % 11.5 Eosinophils % 6.5 Basophils % 2.1 Nucleated RBC % 0.0 Absolute Neutrophils 2.17 Absolute Lymphocytes 2.46 Absolute Monocytes 0.67 Absolute Eosinophils 0.38 Absolute Basophils 0.12 ESR 26 VBG pH VBG pCO2 VBG pO2 VBG HCO3 VBG Total CO2 VBG O2 Saturation VBG Base Excess VBG Lactate Sodium Potassium Chloride Carbon Dioxide Anion Gap BUN Creatinine Est GFR (CKD-EPI 2020) Glucose Calcium Magnesium Total Bilirubin AST ALT Alkaline Phosphatase Troponin I C-Reactive Protein Cancelled Total Protein 6.8 Albumin 3.8 Lipase 20 Urine Color Yellow Urine Clarity Clear Urine pH 5.5 Ur Specific [place] 1.020 Urine Protein 30 H Urine Ketones Negative Urine Blood Negative Urine Nitrite Negative Urine Bilirubin Negative Urine Urobilinogen 0.2 Ur Leukocyte Esterase Negative Urine RBC Negative Urine WBC Negative Ur Epithelial Cells Rare Urine Crystals Negative Urine Bacteria Negative Urine Casts 0-2 Hyaline Urine Mucus Trace Ur Culture Indicated? No Urine Glucose Negative COVID-19 Source SARS-CoV-2 (PCR) Influenza Type A (PCR) Influenza Type B (PCR) RSV (PCR) 07/24/25 07/24/25 07/24/25 12:25 15:05 16:15 WBC RBC Hgb Hct MCV MCH MCHC RDW Plt Count MPV Immature Gran % Neutrophils % Lymphocytes % Monocytes % Eosinophils % Basophils % Nucleated RBC % Absolute Neutrophils Absolute Lymphocytes Absolute Monocytes Absolute Eosinophils Absolute Basophils ESR VBG pH VBG pCO2 VBG pO2 VBG HCO3 VBG Total CO2 VBG O2 Saturation VBG Base Excess VBG Lactate 3.4 H* 3.4 H* Sodium Potassium Chloride Carbon Dioxide Anion Gap BUN Creatinine Est GFR (CKD-EPI 2020) Glucose Calcium Magnesium Total Bilirubin AST ALT Alkaline Phosphatase Troponin I 16 C-Reactive Protein Total Protein Albumin Lipase Urine Color Urine Clarity Urine pH Ur Specific [place] Urine Protein Urine Ketones Urine Blood Urine Nitrite Urine Bilirubin Urine Urobilinogen Ur Leukocyte Esterase Urine RBC Urine WBC Ur Epithelial Cells Urine Crystals Urine Bacteria Urine Casts Urine Mucus Ur Culture Indicated? Urine Glucose COVID-19 Source SARS-CoV-2 (PCR) Influenza Type A (PCR) Influenza Type B (PCR) RSV (PCR) 07/24/25 07/25/25 07/25/25 18:05 06:18 07:52 WBC 6.00 RBC 3.76 L Hgb 10.3 L Hct 32.2 L MCV 86 MCH 27.4 MCHC 32.0 RDW 14.8 H Plt Count 324 MPV 10.6 Immature Gran % Neutrophils % Lymphocytes % Monocytes % Eosinophils % Basophils % Nucleated RBC % Absolute Neutrophils Absolute Lymphocytes Absolute Monocytes Absolute Eosinophils Absolute Basophils ESR VBG pH VBG pCO2 VBG pO2 VBG HCO3 VBG Total CO2 VBG O2 Saturation VBG Base Excess VBG Lactate 3.1 H* 1.4 Sodium 142 Potassium 3.7 Chloride 108 H Carbon Dioxide 23.1 Anion Gap 10.9 BUN 13 Creatinine 0.79 Est GFR (CKD-EPI 2020) 72.14 Glucose 112 H Calcium 9.8 Magnesium 1.6 Total Bilirubin AST ALT Alkaline Phosphatase Troponin I C-Reactive Protein Total Protein Albumin Lipase Urine Color Urine Clarity Urine pH Ur Specific [place] Urine Protein Urine Ketones Urine Blood Urine Nitrite Urine Bilirubin Urine Urobilinogen Ur Leukocyte Esterase Urine RBC Urine WBC Ur Epithelial Cells Urine Crystals Urine Bacteria Urine Casts Urine Mucus Ur Culture Indicated? Urine Glucose COVID-19 Source SARS-CoV-2 (PCR) Influenza Type A (PCR) Influenza Type B (PCR) RSV (PCR) Preliminary micro results at discharge 07/24/25 11:11 Blood Blood Culture - Pending [facility] All Active Problems (Updated 07/24/25 @ 19:12 by Jourdan Farrell MD) Lactic acid acidosis (Acute) Immunocompromised state (Acute) Weakness (Acute) Hypomagnesemia (Acute) Nausea & vomiting (Acute) MRSA cellulitis (Acute) Lumbar radiculitis (Acute) Postlaminectomy syndrome of lumbar region (Acute) Chronic pain disorder (Chronic) GERD (gastroesophageal reflux disease) (Chronic) Diffuse spasm of esophagus (Acute) Spondylosis (Acute) Cardiomegaly (Acute) Heart murmur (Acute) Mild intermittent asthma (Acute) Pure hypercholesterolemia (Acute) Lymphedema (Acute) Peripheral venous insufficiency (Acute) Spasm of back muscles (Acute) Actinic keratosis (Acute) Aortic valve stenosis, nonrheumatic (Acute) Acute bronchitis (Acute) Fatigue (Acute) Nausea (Acute) Chronic cough (Acute) Snoring (Acute) Dyspnea on exertion (Acute) Daytime somnolence (Acute) Exacerbation of intermittent asthma (Acute) Otitis externa (Acute) Insomnia (Acute) Candidiasis of mouth (Acute) Influenza A (Acute) Renal insufficiency (Chronic) Polypharmacy (Acute) Bacteremia (Acute) Pneumonia (Acute) Psoriatic arthritis (Acute) COVID (Acute) Cellulitis and abscess of foot (Acute) Bone infection of left foot (Acute) Sepsis (Acute) Contusion of right foot (Acute) Diabetes mellitus (Chronic) Status post total left knee replacement (Acute) Pain (Acute) Lower extremity pain (Acute) Medical History Effusion of knee Vertigo Urinary disorder Skin disorder Syncope Musculoskeletal disease Motion sickness Liver disease Irregular heart beat Infection Genital disease, female Eye problem ENT disease Elevated cholesterol Digestive problems Complication of anesthesia Circulatory disease Cancer Breathing problem Basal cell carcinoma Chest pain Postoperative anemia due to acute blood loss Hyperlipidemia Hepatosplenomegaly Gait abnormality DVT (deep venous thrombosis) Complex regional pain syndrome type 2 of lower extremity Spinal stenosis Age related osteoporosis Abnormal liver function Failed total knee arthroplasty Fecal impaction Crushing injury of unspecified knee, sequela Chronic prescription opiate use History of falling Obesity Rupture of left quadriceps tendon Fracture of metatarsal of left foot, closed Pain in right ankle and joints of right foot Psoriasis Prepatellar bursitis Quadriceps tendon rupture History of basal cell carcinoma Loose orthopedic implant MOELLER (nonalcoholic steatohepatitis) Type 2 diabetes mellitus Asthma Arthritis Elevated troponin Severe sepsis Acute UTI Chronic pain Edema, peripheral Bacteremia due to group B Streptococcus Surgical History History of endoscopy History of laparotomy Hx of colonoscopy Status post left knee replacement Artificial knee joint present History of arthroplasty of left knee History of total knee arthroplasty History of lumbar surgery S/P revision of total knee Hx of hysterectomy Hx of spinal surgery Hx of laminectomy History of left knee replacement s/p revision for infected prosthesis Family History Brother Cancer family hx of cancer Sister Cancer Diabetes High cholesterol Hypertension Father Stroke Diabetes Coronary artery disease Heart disease High cholesterol Hypertension Thrombophilia Mother Mental disorder Osteoporosis Maternal Grandmother Breast cancer Cancer Sister High cholesterol Hypertension Diabetes Social History Smoking/Tobacco Use Status: Never Smoking risk assessment performed?: Yes Alcohol Intake: current Alcohol Intake frequency: holidays/special occasions only Drug use: Never Substance use type: marijuana Details: occasionally will do a THC edible Housing: house Do you feel safe at home: Yes Do you feel safe in your relationship?: Yes Additional Social history: Lives with in [place]. 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 Time Spent with Patient Time Spent with Patient: <45 minutes Time was spent: preparing to see the patient(eg.review tests), obtaining and/or reviewing separately otained hiistory, ordering medications,tests, procedures, referring, communicating with other health intensive care ambulance paramedic, indepentently interpreting results, counseling the patient and care coordination
[2025-07-25 11:07] VITALS: BP 125/86; PULSE 78; RESP 17; TEMP 36.8; O2SAT 96
--- NOTE | 2025-07-30 09:04 | NUR.NOTE ---
Access chart to reconcile EKG orders with EKG's in [facility]. Duplicate order cancelled. Nursing Note:
== END 2025-07-25 11:48 | disposition home or self-care (01) ==
LOC: ER 19:50 → MS 20:19
PROVIDERS: Admitting Provider Family Medicine; Emergency Provider Physician Assistant; PCP Family Medicine; Responsible Provider Family Medicine; Visit Provider Family Medicine
DX: E87.20 Acidosis, unspecified (principal); R11.2 Nausea with vomiting, unspecified; E86.0 Dehydration; D84.9 Immunodeficiency, unspecified; I89.0 Lymphedema, not elsewhere classified; E11.9 Type 2 diabetes mellitus without complications; M06.9 Rheumatoid arthritis, unspecified; E78.5 Hyperlipidemia, unspecified; I10 Essential (primary) hypertension; E83.42 Hypomagnesemia; Z79.899 Other long term (current) drug therapy; Z79.4 Long term (current) use of insulin; R53.1 Weakness; G89.29 Other chronic pain; K21.9 Gastro-esophageal reflux disease without esophagitis; J45.20 Mild intermittent asthma, uncomplicated; E78.00 Pure hypercholesterolemia, unspecified; I35.0 Nonrheumatic aortic (valve) stenosis; G47.19 Other hypersomnia; Z96.652 Presence of left artificial knee joint
CPT/HCPCS: 00123; 36415; 80048; 80053; 82805; 83690; 85027; 85652; 87040; 87637; 93005; 96361; 96365; 96366; 96375; 99285; 81003; 81015; 83605; 83735; 84484; 85025; 86140; 93010; 99222; 99239; G0378; J0780; J1815; J3475; J7509